=== PATIENT | female | born 1940 | race Two or more races ===

== ENCOUNTER 2024-05-03 14:05 | Inpatient (IN) | payer MEDICARE, SELFPAY ==
--- NOTE | 2024-05-03 14:45 | HP.PCM_ITS ---
[facility] - General General Date of Admission: 05/03/24 Date of Service: 05/03/24 Chief Complaint: Debility due to craniotomy to resect a Left sphenoid wing meningioma. [facility] Constanza EVANS, is a 83 YO F with a PMH of hypertension, diabetes mellitus type 2 (HGBA1C was 5.8% at [facility]), obstructive sleep apnea and a left sphenoid wing meningioma (had a meningioma resection in 2010 and now it is recurrent) who underwent a left frontal craniotomy on 04/26/2024 at [facility] by Dr. Alamo to resect a meningioma. Post operatively she had a seizure and was started on Keppra. She has not had additional seizures in the past few days. She has had some difficulty with speech/word finding and oropharyngeal dysphagia post operatively. She was transferred to the acute inpt rehab unit at [facility] on 05/03/24 for 3 hours of therapy daily to restore function/independence at or near her level prior to the surgery. She had a Armendariz catheter post op and then a purewick catheter when transferred out of NICU at [facility]. She is c/o urinary urgency and frequency. She also has some suprapubic discomfort. Ambulated without and AD prior to the surgery. She saw an eye doctor or swollen left upper lid with impairment of vision and was noted to have proptosis. MRI showed a meningioma. She and her were independent prior to the surgery. They have 4 children who live locally and help out somewhat with stuff around the house. she is accompanied by her and her son Paul today. 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 She refused an MRI to better evaluate and did not want any intervention other than craniotomy. [facility] Medical History (Updated 05/04/24 @ 12:[address] Zoey Feng, DO) Essential tremor GERD (gastroesophageal reflux disease) Benign positional vertigo Subdural hematoma Obstructive sleep apnea Meningioma Hyperlipidemia HTN (hypertension) Diabetes mellitus, type 2 Home Medications ?Medication ?Instructions ?Recorded ?Last Taken ?Type acetaminophen 500 mg tablet 1,000 mg PO Q8 pain 05/03/24 05/03/24 History ascorbic acid (vitamin C) 500 mg 1 g PO DAILY supplement 05/03/24 Unknown History tablet (Vitamin C) bacitracin zinc 500 unit-polymyxin 1 applic topical Q12H wound 05/03/24 05/03/24 History B 10,000 unit/gram topical ointment calcium carbonate 500 mg PO DAILY supplement 05/03/24 Unknown History cholecalciferol (vitamin D3) 25 25 mcg PO DAILY supplement 05/03/24 Unknown History mcg (1,000 unit) capsule fluorometholone 0.1 % eye 1 drp LEFT EYE BID eye drop 05/03/24 Unknown History drops,suspension gabapentin 100 mg capsule 100 mg PO BID nerve pain 05/03/24 05/03/24 History heparin (porcine) 5,000 unit/mL 5,000 unit subcut Q8H clot 05/03/24 05/03/24 History injection solution prevention hydralazine 10 mg tablet 10 mg PO Q4H PRN hypertension 05/03/24 Unknown History levetiracetam 750 mg tablet 1,500 mg PO BID seizure 05/03/24 Unknown History (Keppra) lisinopril 10 mg tablet 10 mg PO DAILY blood pressure 05/03/24 05/03/24 History multivitamin-ferrous 1 tab PO DAILY supplement 05/03/24 Unknown History fumarate-folic acid 18 mg-400 mcg tablet (Centrum Women) nystatin 100,000 unit/gram topical 1 applic topical BID redness 05/03/24 Unknown History powder omega-3 900 mg-dha 360 mg-epa 455 1 cap PO DAILY supplement 05/03/24 Unknown History mg-fish oil 1,000 mg capsule (Fish Oil) ondansetron 4 mg disintegrating 4 mg PO Q6H PRN nausea and vomiting 05/03/24 Unknown History tablet oxycodone 5 mg tablet 5 mg PO Q4H PRN pain 05/03/24 Unknown History pantoprazole 40 mg tablet,delayed 40 mg PO DAILY acid reflux 05/03/24 05/03/24 History release (Protonix) propranolol 20 mg tablet 20 mg PO BID blood pressure 05/03/24 05/03/24 History simvastatin 40 mg tablet 40 mg PO QHS cholesterol 05/03/24 Unknown History Allergy/AdvReac Type Severity Reaction Status Date / Time No Known Allergies Allergy Verified 05/03/24 14:30 Family History Sister Cancer Leukemia. Brother Cancer Esophageal cancer Surgical History History of carpal tunnel surgery History of rotator cuff surgery History of repair of congenital cleft palate History of total knee arthroplasty Status post craniotomy Social History household members: significant other housing: other details: 1 story house with 3 steps to enter house thru the garage number of children: 4 Smoking Status: Never smoker alcohol intake: never substance use type: does not use ROS Constitutional Constitutional: Reports weakness; Denies anorexia, change in weight, chills, difficulty sleeping, fatigue, fever(s), night sweats or poor appetite Eyes Eyes: Reports other Details: She has swelling of the L periorbital area. ; Denies acute decrease in peripheral vision, blind spots, blurry vision, change in vision, diplopia, discharge from eye(s), eye pain, loss of central vision, loss of peripheral vision or loss of vision ENT HEENT: Reports dysphagia; Denies abnormal hearing, headache(s), hearing loss, nasal congestion or sore throat Cardiovascular Cardiovascular: Denies chest pain, dyspnea on exertion, edema, lightheadedness, orthopnea, palpitations, paroxysmal nocturnal dyspnea or syncope Respiratory/Chest Respiratory/Chest: Denies cough, dyspnea, shortness of breath at rest, shortness of breath with exertion or wheezing Gastrointestinal Gastrointestinal: Reports other Details: Had postoperative nausea/vomiting but this is resolved. She is having some suprapubic discomfort. ; Denies constipation, diarrhea, dyspepsia, hematemesis, hematochezia, nausea, odynophagia or vomiting Genitourinary Genitourinary: Reports nocturia, urinary frequency and urinary urgency; Denies dysuria, hematuria, urinary hesitancy or urinary incontinence Musculoskeletal Musculoskeletal: Denies back pain, joint pain, joint swelling or neck pain Integumentary Integumentary: Denies hirsutism, jaundice or rash Neurologic Neurologic: Reports seizures and tremor(s); Denies confusion, disequilibrium, dizziness, focal weakness, headache(s) or paresthesias Psychiatric Psychiatric: Denies anxiety, depression, homicidal ideation or suicidal ideation Endocrine Endocrinology: Denies change in body appearance, polydipsia or polyuria Hematologic/Lymphatic Hematologic/Lymphatic: Reports easy bruising; Denies easy bleeding or lymphadenopathy Allergic/Immunologic Allergic/Immunologic: Denies rhinitis, eczemia or asthma Indicators for Scoring Admitted with or Primary Diagnosis of CVA/Stroke: No Hx of CVA/Stroke: No NIHSS NIHSS 1a. Level of Consciousness: Alert; keenly responsive 1b. LOC Questions: Answers BOTH questions correctly. 1c. LOC Commands: Performs both tasks correctly. 2. Best Gaze: Normal 3. Visual: No visual loss 4. Facial Palsy: Normal symmetrical movements 5a. Left Arm: No drift; arm holds 90 (or 45) degrees for full 10 seconds 5b. Right Arm: No drift; arm holds 90 (or 45) degrees for full 10 seconds 6a. Left Leg: No drift; leg holds 30-degree position for full 5 seconds 6b. Right Leg: No drift; leg holds 30-degree position for full 5 seconds 7. Limb Ataxia: Absent 8. Sensory: Normal; no sensory loss 9. Best Language: No aphasia; normal 10. Dysarthria: Rydy-aw-iixaquxw dysarthria; 11. Extinction and Inattention: No abnormality Total: 1 Stroke Questions Stroke Team Activated: No Physical Exam Const alert and no apparent distress General Appearance: cooperative and well developed HEENT HEENT Narrative: Left frontal craniotomy incision due to recent craniotomy to resect a Left sphenoid wing meningioma. The incision is intact with not purulent DC, no howard- incisional erythema and no dehiscence. No significant howard-incisional swelling however she does have swelling over the central portion of the upper forehead and of the right periorbital area. Mucous membranes are very dry. The tongue protrudes on the midline. Eyes PERRL, EOMs intact bilaterally, conjunctivae normal and no scleral icterus Eyes Narrative: No visual field cuts. Neck supple, no JVD and no carotid bruits Chest Chest: symmetrical chest wall rise Resp normal respiratory effort, normal air movement and no use of accessory muscles Resp Narrative: Clear to auscultation anterior and lateral. Able to speak in complete sentences. Not tachypneic. Back/Spine no CVA tenderness Extremity no clubbing, cyanosis or edema, no calf tenderness and no pedal edema Peripheral Pulses: Yes pulses 2+ throughout Skin no jaundice and no mottling Skin Narrative: Left frontal craniotomy incision which is intact with no howard-incisional erythema, no purulent discharge and no dehiscence. General Skin Exam: no breakdown Rashes: no rashes Neuro moves all extremities and no sensory deficits noted Neuro Narrative: Mild dysarthria. Essential tremor involving primarily her upper extremities and the head. No rigidity and no bradykinesia. No aphasia. Negative for extinction. Psych mental status grossly normal, cooperative, affect normal, denies hallucinations, denies homicidal ideation and denies suicidal ideation Results Lab / Micro Data 05/04/24 05:39 05/04/24 05:39 Assessment & Plan Assessment/Plan (1) Debility: (2) Meningioma: (3) Status post craniotomy: (4) Oropharyngeal dysphagia: (5) Acute blood loss anemia: (6) Dehydration determined by examination: (7) Essential tremor: (8) Diabetes mellitus, type 2: QUALIFIERS: Diabetes mellitus keno terminal operator insulin use: without keno terminal operator use Diabetes mellitus complication status: with hyperglycemia Qualified Code(s): E11.65 - Type 2 diabetes mellitus with hyperglycemia (9) HTN (hypertension): QUALIFIERS: Hypertension type: primary hypertension Qualified Code(s): I10 - Essential (primary) hypertension (10) Hyperlipidemia: QUALIFIERS: Hyperlipidemia type: unspecified Qualified Code(s): E 78.5 - Hyperlipidemia, unspecified (11) Obstructive sleep apnea: PLAN: Plan PLAN PT for gait stability OT for ADL's ST for evaluation Analgesics as needed Bowel protocol Fall precautions Assess for Anxiety/Depression GI prophylaxis -Protonix DVT prophylaxis with heparin 5000 units SQ every 12 hours Follow up with PCP, epilepsy clinic and Dr. Alamo following DC from IP Rehab AM lab including CMP, CBC, Mag and Phos ordered Straight cath for a UA Overnight trending pulse ox since she has been diagnosed with obstructive sleep apnea and worn CPAP in the past but she discontinued this in the distant past. Continue glargine at at bedtime and a sliding insulin scale. She uses an eye drop at home and her son is going to bring it in so we can continue this. Seizure precautions. she is to follow up in the epilepsy clinic at [facility] post DC from rehab Strongly encouraged her to increase her fluid intake. Charges/Coding Visit Charges Inpatient E&M: 48160 Init Hosp L3
[2024-05-03 15:11] VITALS: BP 133/70; PULSE 61; RESP 16; TEMP 36.9; O2SAT 98; BMI 26.8
[2024-05-03 15:17] LABS: Mucous, Urine 0 SEEN /hpf (<or=2+); Squamous Epithelial Cells - UA 0 SEEN /hpf (5-10)
[2024-05-03 15:19] LABS: Color, Urine Straw (Yellow); Glucose, Dipstick Normal (Normal); Ketone-Dipstick Negative (Negative); Leukocyte Esterase-Dipstick 500 /ul (Negative); Nitrite-Dipstick Negative (Negative); Occult Blood-Urine 10 /ul (Negative); Protein-Dipstick 15 mg/dl (Negative); Specific Gravity, Urine 1.005 (1.002-1.030); Urine Bilirubin Dipstick Negative (Negative); Urine Clarity Clear (Clear); Urine Urobilinogen Normal (Normal)
[2024-05-03 15:24] LABS: Bacteria 2+ /hpf (None Seen)
[2024-05-03 15:25] LABS: Red Blood Cells-Urine 0-5 SEEN /hpf (0-5); White Blood Cells 25-50 SEEN /hpf (0-5)
[2024-05-03 16:50] LABS: Bedside Glucose 83 mg/dL (74-106)
[2024-05-03] MEDS: dexAMETHasone 4 MG Tablet PO (16:50)
[2024-05-03 17:36] VITALS: BP 131/71; PULSE 65; RESP 17; TEMP 36.8; O2SAT 98
[2024-05-03 21:26] VITALS: PULSE 78; O2SAT 97
[2024-05-03] MEDS: Cefadroxil 500 MG CAPSULE PO (22:00)
[2024-05-03] MEDS: FLUOROMETHOLONE 5 ML DROPS.SUSP LEFT EYE (22:00)
[2024-05-03] MEDS: Insulin Lispro 100 UNIT/ML INSULN.PEN SC (22:01)
[2024-05-03] MEDS: Insulin Glargine-YFGN 100 UNIT/ML Pen 13 UNIT SC (22:02)
[2024-05-03] MEDS: Atorvastatin Calcium 20 MG Tablet PO (22:03)
[2024-05-03] MEDS: levETIRAcetam 750 MG Tablet 1500 MG PO (22:03)
[2024-05-03] MEDS: BACITRACIN/POLYMYXIN B 15 GM Tube 1 APPLIC TOPICAL (22:04)
[2024-05-03] MEDS: Nystatin Powder 15gm Bottle 1 APPLIC TOPICAL (22:04)
[2024-05-03] MEDS: Acetaminophen 500 MG Tablet 1000 MG PO (22:05)
[2024-05-03] MEDS: Gabapentin 100 MG Capsule PO (22:12)
[2024-05-03] MEDS: Heparin Injection (Vial) 5,000 UNIT/ML VIAL 5000 UNIT SC (22:18)
[2024-05-03 22:40] VITALS: O2SAT 98
[2024-05-03 22:48] LABS: Bedside Glucose 168 mg/dL (74-106)
[2024-05-03 23:38] VITALS: BP 118/65; PULSE 64
[2024-05-03] MEDS: Propranolol 10 MG Tablet 20 MG PO (23:38)
[2024-05-04 05:53] LABS: Absolute Lymphocyte Count 1.57 X10^3/uL (0.83-4.51); Basophil# 0.01 X10^3/uL; Basophil% 0.1 % (0-1); Eosinophil# 0.19 X10^3/uL; Eosinophils% 1.6 % (0-5); Hematocrit 32.3 % (37-47); Hemoglobin 10.8 g/dL (12.0-15.0); Lymphocyte # 1.57 X10^3/ul (0.83-4.51); Lymphocyte % 13.6 % (19-41); Mean Corp Hgb Conc 33.4 g/dL (32-36); Mean Corpuscular Hgb 30.2 pg (27.0-32.0); Mean Corpuscular Volume 90.2 fL (81-99); Mean Platelet Vol. 9.6 fl (6.2-12.0); Monocyte# 0.71 X10^3/uL; Monocyte% 6.2 % (0-10); NRBC Flagged by Analyzer 0 % (0-5); Neutrophil # 8.98 X10^3/uL (2.7-7.7); Neutrophil % 77.8 % (47-70); Platelet Count 276 K/mm3 (150-450); RBC Distribution Width CV 13.7 % (11.6-14.6); RBC Distribution Width SD 44.6 fl (35.1-43.9); Red Blood Count 3.58 M/mm3 (4.2-5.4); White Blood Count 11.5 K/mm3 (4.4-11.0)
[2024-05-04 06:26] LABS: ALB/GLOB Ratio 0.8 RATIO (0.9-2.4); AST(SGOT) 8 U/L (15-37); Alanine Aminotransfer ALT/SGPT 14 U/L (13-56); Albumin, Serum 2.4 g/dL (3.2-5.0); Alkaline Phosphatase 42 U/L (45-117); Anion Gap 4 (5-15); BUN 33 mg/dL (7-18); Calcium,Total 8.8 mg/dL (8.5-10.1); Chloride 105 mmol/L (98-107); Creatinine, Serum 0.92 mg/dL (0.55-1.02); EST Glomerular Filtration Rate 62 mL/min (>60); Est Glom Filt Rate - Afr Amer 75 mL/min (>60); Estimated Creatinine Clearance 47.99 ml/min; Globulin 3.1 g/dL (2.2-4.2); Glucose 105 mg/dL (74-106); Phosphorus 3.1 mg/dL (2.5-4.9); Potassium 4.1 mmol/L (3.5-5.1); Protein, Total 5.5 g/dL (6.4-8.2); Sodium Level 135 mmol/L (136-145)
[2024-05-04 06:31] VITALS: BP 108/58; PULSE 54; RESP 18; TEMP 36.4; O2SAT 98
[2024-05-04 06:37] VITALS: BP 108/58; PULSE 54; RESP 18; TEMP 36.4; O2SAT 98
[2024-05-04] MEDS: Heparin Injection (Vial) 5,000 UNIT/ML VIAL 5000 UNIT SC ×3 (06:46→21:17)
[2024-05-04] MEDS: Acetaminophen 500 MG Tablet 1000 MG PO ×3 (06:46→21:23)
[2024-05-04 07:09] LABS: Bedside Glucose 103 mg/dL (74-106)
[2024-05-04] MEDS: levETIRAcetam 750 MG Tablet 1500 MG PO ×2 (07:54→21:24)
[2024-05-04] MEDS: Ascorbic Acid 500 MG Tablet PO (07:54)
[2024-05-04] MEDS: dexAMETHasone 4 MG Tablet PO ×2 (07:54→17:39)
[2024-05-04] MEDS: Cefadroxil 500 MG CAPSULE PO ×2 (07:54→21:25)
[2024-05-04] MEDS: Calcium (Elemental) 500 MG Tablet PO (07:54)
[2024-05-04] MEDS: Omega-3 Acid Ethyl Esters 1 GM Capsule PO (07:54)
[2024-05-04] MEDS: FLUOROMETHOLONE 5 ML DROPS.SUSP LEFT EYE ×2 (07:55→21:19)
[2024-05-04] MEDS: Nystatin Powder 15gm Bottle 1 APPLIC TOPICAL ×2 (07:56→21:16)
[2024-05-04] MEDS: Senna/Docusate Sodium 1 Tablet 2 TABLET PO ×2 (10:11→21:24)
[2024-05-04] MEDS: Gabapentin 100 MG Capsule PO ×2 (10:11→21:32)
[2024-05-04] MEDS: Pantoprazole Sodium 40 MG Tablet PO (10:11)
[2024-05-04] MEDS: Cholecalciferol (VIT D3) 25 MCG TABLET (1,000 UNITS) PO (10:11)
[2024-05-04] MEDS: Lisinopril 10 MG Tablet PO (10:12)
[2024-05-04] MEDS: Propranolol 10 MG Tablet 20 MG PO ×2 (10:12→21:24)
[2024-05-04] MEDS: BACITRACIN/POLYMYXIN B 15 GM Tube 1 APPLIC TOPICAL ×2 (10:15→21:21)
[2024-05-04 10:19] VITALS: BP 104/68; PULSE 60
[2024-05-04 11:21] LABS: Bedside Glucose 130 mg/dL (74-106)
[2024-05-04 12:45] VITALS: BP 106/52; PULSE 60
[2024-05-04] MEDS: Multivitamins,Ther W-Minerals Tablet 1 TABLET PO (12:57)
--- NOTE | 2024-05-04 12:57 | REHABEVAL_ITS ---
Admission Information Primary Diagnosis:: Debility secondary to craniotomy for resection of meningioma Status Changes from Prescreening?: No changes Identified Actual Problem List:: Skin Intergrity, Pain, ALteration in Cmfrt, Cognitve Impr/Memory Loss, Alteration in Sleep, Mobility Impaired, Self Care Deficit, Diabetes, Hyperglycemia, Fluid Change-Dehydration and Alteration-Leisure Activ. Potential Problem List:: DVT, Bleeding, Infection, UTI, Aspiration, Falls, Skin Integrity and Depression Risk of Complications DVT: DONAL Hose and - (Heparin 5000 units SQ every 8 hours) Bleeding: Monitor Lab Values, Nursing to Teach Precautions for anti-coagulation therapy., Wound, if applicable, to be assessed every shift. and Stroke patients assessed for lethargy or change in status. Infection: Clinical Staff to Monitor for S/S of infection: and S/S of infection include fever, redness, warmth, etc. Urinary Tract Infection: Monitor for frequency, burning, discomfort, or incontinence. and Nursing will obtain urine sample for urinalysis and C&S when ordered. Aspiration: Clinical staff will monitor for coughing, drooling, congestion., Speech will evaluate swallowing and dsyphasia. and Nursing will monitor patient swallowing during meals. Falls: Patient will be evaluated for Fall Precautions and Patient will be placed on Fall Precautions as indicated per protocol. Skin Breakdown: Nursing will assess skin daily using assessment tool. and Nursing will place on Skin Breakdown Precautions as indicated. Pain: Clinical staff will assess patient's pain level per protocol., Medications will be given, if needed, and the pain level reassessed. and Other methods: Massage, distraction, decrease stimulus, etc. used PRN. Plan of Care Patient requires physician specializing in physical medicine and rehab oversight to provide close medical supervision of rehab issues including: Pain Management, Sleep Problems, Bowel and Bladder, Medical and co-morbidity Management, DVT prophylaxis, Rehabilitation Leadership and Coordination of treatment team Patient needs Physical Therapy: For a minimum of 1 hour and At least 5 out of 7 days Patient needs Physical Therapy to improve:: Mobility, Strengthening, Transfers, Stretching, ROM, Endurance, Stairs, Gait and Balance Patient needs Occupational Therapy: For a minimum of 1 hour and At least 5 out of 7 days Patient needs Occupational Therapy to improve ADL's incl.: Eating, Grooming, Bathing, Dressing, Toileting, Toilet transfers, Community Reintegration, Higher functioning activities, Household tasks, Adaptive Equipment, Splinting and Other activities as determined Patient requires speech therapy: For a minimum of 1 hour and At least 5 out of 7 days Patient requires speech therapy for: Swallowing, Cognition, Language Skills and Compensatory Strategies Patient requires 24/ Rehabilitation Nursing for: Pain Issues, Identifying and preventing risk factors, Monitoring and reporting current medical conditions, Assisting with ambulation, transfer, and all ADL's, Teaching patients about disease process and medications, Family teaching, Providing safe environment, Bowel and Bladder Issues, Skin integrity and Medication Management Patient needs Modern Languages Professor/ Case Management for: Discharge Planning, Arranging Home Equipment or Services and Family Interventions Patient needs Dietary and Nutrition Services for: Adequate Nutrition, Nutritional Supplements and Nutritional Education Goals Goals Patient will remain: free from falls Patient will perform eating at: MOD I level of assist. Patient will perform bed mobility at: MOD I level of assist. Patient will complete transfers from bed to chair at: MOD I level of assist. Patient will ambulate: - (250 feet with least restrictive device at mod I) Patient will complete upper body dressing at: MOD I level of assist. Patient will complete lower body dressing at: Standby Assist. Patient will complete toilet transfer at: MOD I level of assist. Patient will complete toileting at: MOD I level of assist. Patient will perform bathing at: - (Upper body bathing independently and lower body bathing at mod I with assistive equipment as needed.) Patient will perform Tub/Shower transfer at: - (Supervision) Patient will complete grooming at: MOD I level of assist. Patient will complete home management skills at: MOD I level of assist. Patient will achieve: - (2 steps with 1 handrail and modified least restrictive device) Patient will have pain level of: of 3 or less Patient's skin will: remain intact Patient will receive: adequate nutrition. Discharge Planning Pt Prognosis for Sig. Practical Improv. w/in Reasonable Time: Good Estimated Length of stay (days): 28 Anticipated D/C Destination: Home Was Preadmission Assessment Accurate?: Yes
--- NOTE | 2024-05-04 12:59 | PCM.PROGNOTE ---
Subjective Subjective Day #2 cefadroxil Afebrile VSS -blood pressure has ranged from 104/68 to 118/65. Heart rate has ranged from 54-64. She denies lightheadedness. Maintaining appropriate oxygen saturation on RA Oral intake - FOOD good FLUIDS fluid intake has picked up today. Since midnight she has taken in 1860 cc. The blood sugar record was reviewed. Blood sugar at at bedtime was 168 and the fasting this morning was 103. Discussed with nursing - no problems that need addressed Reviewed the THERAPY notes Medication list reviewed. All lab drawn this morning was personally reviewed. White blood cell count is 11.5 however she is on dexamethasone twice daily. Hemoglobin is 10.8 with a normal MCV and a mildly elevated RDW. Platelets are within normal limits. The sodium is mildly decreased at 135 and the potassium is 4.1. The BUN is 33 with a creatinine of 0.92 and a BUN/creatinine ratio of 36. LFTs are unremarkable. Straight cath UA yesterday showed 25-50 WBCs per high-power field with 2+ bacteria. 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 The overnight trending pulse ox was reviewed. The pulse ox is 89% or less only 0.03% of the time she was monitored which amounts to 10 seconds. There were no desaturation events. Karena denies cephalgia, vertigo, lightheadedness, chest pain, cough, shortness of breath, sore throat, nausea/vomiting/abdominal pain, calf pain. Still having some dysuria. PVR's elevated at times. Objective Data Objective Data Vital Signs: Vital Signs Temp Pulse Resp BP Pulse Ox O2 Del Method FiO2 97.5 F L 60 18 106/52 L 98 Room Air 21 05/04/24 06:37 05/04/24 12:45 05/04/24 06:37 05/04/24 12:45 05/04/24 06:37 05/04/24 07:25 05/03/24 21:26 Oxygen Delivery Method Room Air Weight: 171 lb 1.259 oz Body Mass Index (BMI) 26.8 Intake & Output: Intake and Output for Last 24 Hours 05/02/24 05/03/24 05/04/24 23:59 23:59 23:59 Intake Total 360 / 660 1860 / 1860 Output Total 300 / 300 300 / 300 Balance 60 / 360 1560 / 1560 Lab / Micro Data 05/04/24 05:39 05/04/24 05:39 Labs: Laboratory Results - last 24 hr 05/03/24 15:10: Urine Color Straw, Urine Clarity Clear, Urine pH 7.0, Ur Specific [place] 1.005, Urine Protein 15 H, Urine Glucose (UA) Normal, Urine Ketones Negative, Urine Occult Blood 10 H, Urine Nitrite Negative, Urine Bilirubin Negative, Urine Urobilinogen Normal, Ur Leukocyte Esterase 500 H, Urine RBC 0-5 SEEN, Urine WBC 25-50 SEEN, Ur Squamous Epith Cells 0 SEEN, Urine Bacteria 2+, Urine Mucus 0 SEEN 05/03/24 16:17: POC Glucose 83 05/03/24 21:55: POC Glucose 168 H 05/04/24 05:39: WBC 11.5 H, RBC 3.58 L, Hgb 10.8 L, Hct 32.3 L, MCV 90.2, MCH 30.2, MCHC 33.4, RDW Std Deviation 44.6 H, RDW Coeff of Tung 13.7, Plt Count 276, MPV 9.6, Immature Gran % (Auto) 0.700, Neut % (Auto) 77.8 H, Lymph % (Auto) 13.6 L, [place] % (Auto) 6.2, Eos % (Auto) 1.6, Baso % (Auto) 0.1, Absolute Neuts (auto) 9.0 H, Absolute Lymphs (auto) 1.57, Nucleated RBC % 0, Sodium 135 L, Potassium 4.1, Chloride 105, Carbon Dioxide 26.0, Anion Gap 4 L, BUN 33 H, Creatinine 0.92, Estim Creat Clear Calc 47.99, Est GFR (MDRD) Af Amer 75, Est GFR (MDRD) Non-Af 62, BUN/Creatinine Ratio 36.0 H, Glucose 105, Calcium 8.8, Phosphorus 3.1, Total Bilirubin 0.40, AST 8 L, ALT 14, Alkaline Phosphatase 42 L, Total Protein 5.5 L, Albumin 2.4 L, Globulin 3.1, Albumin/Globulin Ratio 0.8 L 05/04/24 06:50: POC Glucose 103 05/04/24 11:02: POC Glucose 130 H Micro: Microbiology 05/03/24 15:10 Urine Catheter - Catheter Urine Culture - Preliminary GNR lactose wallpaper inspector and shipper Physical Exam Const alert, oriented x3 and no apparent distress Constitutional Narrative: Pleasant and talkative. She is appropriate. General Appearance: cooperative HEENT Mouth: dry mucous membranes Neck supple Resp normal respiratory effort and clear to auscultation bilaterally Effort and Inspection: Negative for tachypneic, respiratory distress or labored Cardio regular rate, regular rhythm, no murmurs, no rub and no gallops GI normal to inspection, nondistended, normoactive bowel sounds, soft to palpation and non-tender GI Narrative: No guarding with light palpation. Mild suprapubic tenderness with deeper palpation. Extremity no calf tenderness General Extremity: Negative for edema Skin Wound Narrative: Cranial incision is intact with no dehiscence, no hwoard-incisional erythema, no discharge from the incision. Psych affect normal Assessment & Plan Assessment/Plan (1) Debility: (2) Meningioma: (3) Status post craniotomy: (4) Oropharyngeal dysphagia: (5) Acute blood loss anemia: (6) Dehydration determined by examination: (7) Essential tremor: (8) Diabetes mellitus, type 2: QUALIFIERS: Diabetes mellitus terminal system operator insulin use: without terminal system operator use Diabetes mellitus complication status: with hyperglycemia Qualified Code(s): E11.65 - Type 2 diabetes mellitus with hyperglycemia (9) HTN (hypertension): QUALIFIERS: Hypertension type: primary hypertension Qualified Code(s): I10 - Essential (primary) hypertension (10) Hyperlipidemia: QUALIFIERS: Hyperlipidemia type: unspecified Qualified Code(s): E78.5 - Hyperlipidemia, unspecified (11) Obstructive sleep apnea: PLAN: Plan 1. Continue therapy 2. Decrease the at bedtime glargine to 10 units 3. Change the sliding insulin to 3 times daily AC 4. Hold lisinopril if the systolic is less than 110 5. Continue empiric cefadroxil and await the final urine culture results. Charges/Coding Visit Charges Inpatient E&M: 87362 Subs Hosp L2
[2024-05-04 13:10] VITALS: BP 103/52; BP 110/57; BP 119/60; PULSE 57; PULSE 62; PULSE 63
[2024-05-04 13:47] VITALS: BMI 26.5
[2024-05-04 14:01] LABS: Magnesium 2.2 mg/dL (1.6-2.6)
[2024-05-04 16:37] LABS: Bedside Glucose 102 mg/dL (74-106)
[2024-05-04] MEDS: Ensure Plus High Protein 120 ML LIQUID PO (17:39)
[2024-05-04 18:00] VITALS: BP 105/53; PULSE 56; RESP 16; TEMP 36.3; O2SAT 96
[2024-05-04] MEDS: Atorvastatin Calcium 20 MG Tablet PO (21:24)
[2024-05-04] MEDS: Insulin Glargine-YFGN 100 UNIT/ML Pen 10 UNIT SC (21:26)
[2024-05-04 21:45] LABS: Bedside Glucose 190 mg/dL (74-106)
[2024-05-05] MEDS: Heparin Injection (Vial) 5,000 UNIT/ML VIAL 5000 UNIT SC ×3 (05:02→20:40)
[2024-05-05] MEDS: Acetaminophen 500 MG Tablet 1000 MG PO ×3 (05:03→20:44)
[2024-05-05 06:00] VITALS: BP 128/66; PULSE 60; RESP 16; TEMP 36.6; O2SAT 94
[2024-05-05 07:08] LABS: Bedside Glucose 123 mg/dL (74-106)
[2024-05-05] MEDS: Pantoprazole Sodium 40 MG Tablet PO (07:45)
[2024-05-05] MEDS: Senna/Docusate Sodium 1 Tablet 2 TABLET PO ×2 (07:45→20:44)
[2024-05-05] MEDS: Nystatin Powder 15gm Bottle 1 APPLIC TOPICAL ×2 (07:45→20:35)
[2024-05-05] MEDS: dexAMETHasone 4 MG Tablet PO ×2 (07:45→16:57)
[2024-05-05] MEDS: Cholecalciferol (VIT D3) 25 MCG TABLET (1,000 UNITS) PO (07:45)
[2024-05-05] MEDS: Omega-3 Acid Ethyl Esters 1 GM Capsule PO (07:46)
[2024-05-05] MEDS: Propranolol 10 MG Tablet 20 MG PO ×2 (07:46→20:43)
[2024-05-05] MEDS: Ascorbic Acid 500 MG Tablet PO (07:46)
[2024-05-05] MEDS: Ensure Plus High Protein 120 ML LIQUID PO ×3 (07:47→16:57)
[2024-05-05 10:30] VITALS: BP 104/63; PULSE 70
[2024-05-05] MEDS: BACITRACIN/POLYMYXIN B 15 GM Tube 1 APPLIC TOPICAL ×2 (10:33→20:36)
[2024-05-05] MEDS: Calcium (Elemental) 500 MG Tablet PO (10:35)
[2024-05-05] MEDS: levETIRAcetam 750 MG Tablet 1500 MG PO ×2 (10:35→20:43)
[2024-05-05] MEDS: Gabapentin 100 MG Capsule PO ×2 (10:35→20:57)
[2024-05-05] MEDS: Cefadroxil 500 MG CAPSULE PO ×2 (10:36→20:43)
[2024-05-05] MEDS: FLUOROMETHOLONE 5 ML DROPS.SUSP LEFT EYE ×2 (10:37→20:38)
[2024-05-05] MEDS: Magnesium Hydroxide 30 ML UDC PO (11:22)
[2024-05-05] MEDS: Multivitamins,Ther W-Minerals Tablet 1 TABLET PO (11:22)
[2024-05-05 11:41] LABS: Bedside Glucose 188 mg/dL (74-106)
[2024-05-05] MEDS: Insulin Lispro 100 UNIT/ML INSULN.PEN SC ×2 (12:10→16:56)
[2024-05-05 16:30] LABS: Bedside Glucose 159 mg/dL (74-106)
[2024-05-05 18:00] VITALS: BP 129/63; PULSE 65; RESP 18; TEMP 36.4; O2SAT 96
[2024-05-05] MEDS: Atorvastatin Calcium 20 MG Tablet PO (20:44)
[2024-05-05] MEDS: Insulin Glargine-YFGN 100 UNIT/ML Pen 10 UNIT SC (20:58)
[2024-05-05 21:24] LABS: Bedside Glucose 167 mg/dL (74-106)
[2024-05-06] MEDS: Heparin Injection (Vial) 5,000 UNIT/ML VIAL 5000 UNIT SC ×3 (06:03→21:52)
[2024-05-06] MEDS: Acetaminophen 500 MG Tablet 1000 MG PO ×3 (06:04→21:56)
[2024-05-06 06:25] VITALS: BP 144/64; PULSE 52; RESP 17; TEMP 36.6; O2SAT 95
[2024-05-06 06:34] LABS: Bedside Glucose 126 mg/dL (74-106)
[2024-05-06] MEDS: Gabapentin 100 MG Capsule PO ×2 (08:03→22:04)
[2024-05-06] MEDS: Lisinopril 10 MG Tablet PO (08:03)
[2024-05-06] MEDS: levETIRAcetam 750 MG Tablet 1500 MG PO ×2 (08:04→21:56)
[2024-05-06] MEDS: Pantoprazole Sodium 40 MG Tablet PO (08:04)
[2024-05-06] MEDS: Propranolol 10 MG Tablet 20 MG PO ×2 (08:04→21:56)
[2024-05-06] MEDS: dexAMETHasone 4 MG Tablet PO ×2 (08:04→16:35)
[2024-05-06] MEDS: Omega-3 Acid Ethyl Esters 1 GM Capsule PO (08:04)
[2024-05-06] MEDS: Ascorbic Acid 500 MG Tablet PO (08:04)
[2024-05-06] MEDS: Cholecalciferol (VIT D3) 25 MCG TABLET (1,000 UNITS) PO (08:04)
[2024-05-06] MEDS: Cefadroxil 500 MG CAPSULE PO ×2 (08:04→21:56)
[2024-05-06] MEDS: Calcium (Elemental) 500 MG Tablet PO (08:05)
[2024-05-06] MEDS: FLUOROMETHOLONE 5 ML DROPS.SUSP LEFT EYE ×2 (08:05→22:00)
[2024-05-06] MEDS: Ensure Plus High Protein 120 ML LIQUID PO ×3 (08:13→16:35)
[2024-05-06] MEDS: Nystatin Powder 15gm Bottle 1 APPLIC TOPICAL ×2 (08:13→21:55)
[2024-05-06] MEDS: BACITRACIN/POLYMYXIN B 15 GM Tube 1 APPLIC TOPICAL ×2 (08:15→21:54)
[2024-05-06 08:50] VITALS: O2SAT 98
--- NOTE | 2024-05-06 09:10 | PN_ITS ---
Subjective Subjective Day #4/ cefadroxil Karena was seen on team rounds today. Afebrile VSS -blood pressure over the weekend has ranged from 104/63 to 129/63. This a.m. her blood pressure was 144/64 which is an outlier. Heart rate is ranged from 52-70. Maintaining appropriate oxygen saturation on RA Oral intake - FOOD good FLUIDS good The blood sugar record was reviewed. All blood sugars since admission have been 190 or less. No hypoglycemia. Fasting today is 126 and the at bedtime blood sugar was 167. She remains on a Decadron taper. Discussed with nursing -she had 1 postvoid residual yesterday a.m. 39. Later in the day the postvoid residual was 25 and this morning the postvoid residual is 172. Reviewed the THERAPY notes Medication list reviewed. Urine culture showed a pansensitive E. coli. Will continue the Cefadroxil for a total of 7 days in light of the Decadron/immunosuppression. Karena denies lightheadedness, vertigo, CP, SOB at rest, SOB with exertion, cough, nausea, vomiting, abd pain, diarrhea, constipation, dysuria, calf pain and ankle swelling. Objective Data Objective Data Vital Signs: Vital Signs Temp Pulse Resp BP Pulse Ox O2 Del Method FiO2 97.8 F 52 L 17 144/64 H 98 Room Air 21 05/06/24 06:25 05/06/24 06:25 05/06/24 06:25 05/06/24 06:25 05/06/24 08:50 05/06/24 08:50 05/03/24 21:26 Oxygen Delivery Method Room Air Weight: 169 lb 8.568 oz Body Mass Index (BMI) 26.5 Intake & Output: Intake and Output for Last 24 Hours 05/04/24 05/05/24 05/06/24 23:59 23:59 23:59 Intake Total 2640 / 2640 1560 / 1560 240 / 240 Output Total 1250 / 1250 2049 / 2049 Balance 1390 / 1390 -490 / -490 240 / 240 Lab / Micro Data 05/04/24 05:39 05/04/24 05:39 Labs: Laboratory Results - last 24 hr 05/05/24 11:13: POC Glucose 188 H 05/05/24 16:11: POC Glucose 159 H 05/05/24 21:04: POC Glucose 167 H 05/06/24 06:14: POC Glucose 126 H Micro: Microbiology 05/03/24 15:10 Urine Catheter - Catheter Urine Culture - Final Escherichia coli Physical Exam Const alert, oriented x3 and no apparent distress Constitutional Narrative: Pleasant and talkative. She is appropriate. Sitting in the recliner at the bedside. General Appearance: cooperative HEENT moist oral mucous membranes HEENT Narrative: No evidence of thrush. Eyes PERRL, EOMs intact bilaterally, conjunctivae normal and no scleral icterus Eyes Narrative: No visual field cuts. Neck supple Resp normal respiratory effort and clear to auscultation bilaterally Resp Narrative: Clear to auscultation anterior and lateral. Able to speak in complete sentences. Not tachypneic. Effort and Inspection: Negative for tachypneic, respiratory distress or labored Cardio regular rate, regular rhythm, no murmurs, no rub and no gallops Cardio Narrative: No ectopy GI normal to inspection, nondistended, normoactive bowel sounds, soft to palpation and non-tender GI Narrative: No guarding with light palpation, even in the suprapubic area today. Back/Spine no CVA tenderness Extremity no calf tenderness General Extremity: Negative for edema Skin no mottling General Skin Exam: no breakdown Rashes: no rashes Wound Narrative: Cranial incision is intact with no dehiscence, no howard-incisional erythema, no discharge from the incision. Less howard-orbital edema today and the Left eye is open more. No visual field cuts. Psych affect normal Assessment & Plan Assessment/Plan (1) Debility: (2) Meningioma: PLAN: recurrent (3) Status post craniotomy: (4) Oropharyngeal dysphagia: (5) Acute blood loss anemia: (6) Diabetes mellitus, type 2: QUALIFIERS: Diabetes mellitus snf insulin use: without licensed clinical social worker use Diabetes mellitus complication status: with hyperglycemia Qualified Code(s): E11.65 - Type 2 diabetes mellitus with hyperglycemia PLAN: Plan 1. Continue therapy 2. Tomorrow the dexamethasone will get down to 2 mg twice daily so will likely need to decrease the glargine at at bedtime tomorrow. 3. Continue cefadroxil for a total of 7 days for catheter related UTI in a patient on immunosuppressive agents. She is currently asymptomatic. 4. Recheck hemoglobin in a few days. Charges/Coding Visit Charges Inpatient E&M: 41727 Subs Hosp L1
[2024-05-06 12:08] LABS: Bedside Glucose 112 mg/dL (74-106)
[2024-05-06] MEDS: Multivitamins,Ther W-Minerals Tablet 1 TABLET PO (12:10)
[2024-05-06] MEDS: Insulin Lispro 100 UNIT/ML INSULN.PEN SC (16:43)
[2024-05-06 17:24] LABS: Bedside Glucose 151 mg/dL (74-106)
[2024-05-06 18:00] VITALS: BP 132/59; PULSE 61; RESP 17; TEMP 36.6; O2SAT 99
[2024-05-06] MEDS: Insulin Glargine-YFGN 100 UNIT/ML Pen 8 UNIT SC (21:51)
[2024-05-06] MEDS: Atorvastatin Calcium 20 MG Tablet PO (21:56)
[2024-05-06] MEDS: Senna/Docusate Sodium 1 Tablet 2 TABLET PO (21:57)
[2024-05-06 22:07] LABS: Bedside Glucose 175 mg/dL (74-106)
[2024-05-07 06:00] VITALS: BP 115/61; PULSE 74; RESP 17; TEMP 36.7; O2SAT 97
[2024-05-07] MEDS: Acetaminophen 500 MG Tablet 1000 MG PO ×3 (06:20→22:22)
[2024-05-07] MEDS: Heparin Injection (Vial) 5,000 UNIT/ML VIAL 5000 UNIT SC ×3 (06:21→22:18)
[2024-05-07 06:34] LABS: Bedside Glucose 130 mg/dL (74-106)
[2024-05-07 07:10] VITALS: O2SAT 98
[2024-05-07] MEDS: Pantoprazole Sodium 40 MG Tablet PO (07:44)
[2024-05-07] MEDS: Cefadroxil 500 MG CAPSULE PO ×2 (07:44→22:24)
[2024-05-07] MEDS: Propranolol 10 MG Tablet 20 MG PO ×2 (07:44→22:24)
[2024-05-07] MEDS: Omega-3 Acid Ethyl Esters 1 GM Capsule PO (07:44)
[2024-05-07] MEDS: levETIRAcetam 750 MG Tablet 1500 MG PO ×2 (07:44→22:23)
[2024-05-07] MEDS: Multivitamins,Ther W-Minerals Tablet 1 TABLET PO (07:44)
[2024-05-07] MEDS: Lisinopril 10 MG Tablet PO (07:44)
[2024-05-07] MEDS: Calcium (Elemental) 500 MG Tablet PO (07:44)
[2024-05-07] MEDS: Ascorbic Acid 500 MG Tablet PO (07:44)
[2024-05-07] MEDS: Cholecalciferol (VIT D3) 25 MCG TABLET (1,000 UNITS) PO (07:44)
[2024-05-07] MEDS: Ensure Plus High Protein 120 ML LIQUID PO ×3 (07:45→16:10)
[2024-05-07] MEDS: FLUOROMETHOLONE 5 ML DROPS.SUSP LEFT EYE ×2 (07:45→22:21)
[2024-05-07] MEDS: BACITRACIN/POLYMYXIN B 15 GM Tube 1 APPLIC TOPICAL ×2 (07:49→22:16)
[2024-05-07] MEDS: Gabapentin 100 MG Capsule PO ×2 (07:49→22:26)
[2024-05-07] MEDS: Nystatin Powder 15gm Bottle 1 APPLIC TOPICAL (07:50)
--- NOTE | 2024-05-07 10:11 | PN_ITS ---
Subjective Subjective Day #5 of 7 for treatment of catheter related acute cystitis present at admission to rehab. Afebrile VSS - Maintaining appropriate oxygen saturation on RA Oral intake - FOOD good FLUIDS good The blood sugar record was reviewed and all blood sugars are less than 180. The at bedtime blood sugar was 175 and she received a decreased dose of 8 units of glargine last night. The fasting this morning was 130. Decadron will be tapered today to 2 mg p.o. twice daily. Discussed with nursing - no problems that need addressed Reviewed the THERAPY notes Medication list reviewed. No cough, shortness of breath, chest pain, nausea/vomiting, dysuria, constipation or calf tenderness. No vertigo and no cephalgia. Has not taken anything other than Tylenol for pain since admission to rehab. Objective Data Objective Data Vital Signs: Vital Signs Temp Pulse Resp BP Pulse Ox O2 Del Method FiO2 98.0 F 74 17 115/61 98 Room Air 21 05/07/24 06:00 05/07/24 06:00 05/07/24 06:00 05/07/24 06:00 05/07/24 07:10 05/07/24 07:10 05/03/24 21:26 Oxygen Delivery Method Room Air Weight: 169 lb 8.568 oz Body Mass Index (BMI) 26.5 Intake & Output: Intake and Output for Last 24 Hours 05/05/24 05/06/24 05/07/24 23:59 23:59 23:59 Intake Total 1560 / 1560 1320 / 1320 360 / 360 Output Total 2049 / 2049 1000 / 1000 800 / 800 Balance -490 / -490 320 / 320 -440 / -440 Lab / Micro Data 05/04/24 05:39 05/04/24 05:39 Labs: Laboratory Results - last 24 hr 05/06/24 11:51: POC Glucose 112 H 05/06/24 16:43: POC Glucose 151 H 05/06/24 21:49: POC Glucose 175 H 05/07/24 06:17: POC Glucose 130 H Micro: Microbiology 05/03/24 15:10 Urine Catheter - Catheter Urine Culture - Final Escherichia coli Physical Exam Const alert, oriented x3 and no apparent distress HEENT moist oral mucous membranes HEENT Narrative: No evidence of thrush. Resp normal respiratory effort and clear to auscultation bilaterally Cardio regular rate, regular rhythm, no murmurs and no gallops Cardio Narrative: No ectopy GI normal to inspection, nondistended, normoactive bowel sounds, soft to palpation and non-tender Extremity no calf tenderness General Extremity: Negative for edema Skin General Skin Exam: no breakdown Rashes: no rashes Wound Narrative: Cranial incision is intact with no dehiscence, no howard-incisional erythema, no discharge from the incision. Psych affect normal Appearance: appropriate Attitude: No agitated Activity / Motor Behavior: Negative for restless Mood & Affect: Negative for depressed or anxious Assessment & Plan Assessment/Plan (1) Debility: (2) Meningioma: PLAN: recurrent (3) Status post craniotomy: (4) Oropharyngeal dysphagia: (5) Acute blood loss anemia: (6) Diabetes mellitus, type 2: QUALIFIERS: Diabetes mellitus superintendent terminal insulin use: without mcfp use Diabetes mellitus complication status: with hyperglycemia Qualified Code(s): E11.65 - Type 2 diabetes mellitus with hyperglycemia PLAN: Plan 1. Continue therapy 2. Continue to monitor blood sugars before meals and at bedtime. Continue glargine 8 mg nightly and sliding insulin scale with meals. Charges/Coding Visit Charges Inpatient E&M: 49559 Subs Hosp L1
[2024-05-07 12:30] LABS: Bedside Glucose 116 mg/dL (74-106)
[2024-05-07 17:09] LABS: Bedside Glucose 138 mg/dL (74-106)
[2024-05-07 18:00] VITALS: BP 112/61; PULSE 48; RESP 16; TEMP 36.7; O2SAT 96
[2024-05-07] MEDS: Insulin Glargine-YFGN 100 UNIT/ML Pen 8 UNIT SC (22:17)
[2024-05-07] MEDS: Senna/Docusate Sodium 1 Tablet 2 TABLET PO (22:23)
[2024-05-07] MEDS: Atorvastatin Calcium 20 MG Tablet PO (22:25)
[2024-05-07 22:30] LABS: Bedside Glucose 143 mg/dL (74-106)
[2024-05-08 06:00] VITALS: BP 121/54; PULSE 47; RESP 14; TEMP 36.9; O2SAT 95; BMI 26.9
[2024-05-08] MEDS: Acetaminophen 500 MG Tablet 1000 MG PO ×3 (06:18→21:36)
[2024-05-08] MEDS: Heparin Injection (Vial) 5,000 UNIT/ML VIAL 5000 UNIT SC ×3 (06:18→21:36)
[2024-05-08 06:32] LABS: Bedside Glucose 92 mg/dL (74-106)
[2024-05-08] MEDS: Senna/Docusate Sodium 1 Tablet 2 TABLET PO ×2 (08:20→21:37)
[2024-05-08] MEDS: Multivitamins,Ther W-Minerals Tablet 1 TABLET PO (08:21)
[2024-05-08] MEDS: levETIRAcetam 750 MG Tablet 1500 MG PO ×2 (08:21→21:37)
[2024-05-08] MEDS: Ascorbic Acid 500 MG Tablet PO (08:21)
[2024-05-08] MEDS: Cholecalciferol (VIT D3) 25 MCG TABLET (1,000 UNITS) PO (08:21)
[2024-05-08] MEDS: Pantoprazole Sodium 40 MG Tablet PO (08:21)
[2024-05-08] MEDS: FLUOROMETHOLONE 5 ML DROPS.SUSP LEFT EYE ×2 (08:21→21:50)
[2024-05-08] MEDS: Propranolol 10 MG Tablet 20 MG PO ×2 (08:21→21:36)
[2024-05-08] MEDS: Calcium (Elemental) 500 MG Tablet PO (08:22)
[2024-05-08] MEDS: Cefadroxil 500 MG CAPSULE PO ×2 (08:22→21:51)
[2024-05-08] MEDS: Omega-3 Acid Ethyl Esters 1 GM Capsule PO (08:22)
[2024-05-08] MEDS: Lisinopril 10 MG Tablet PO (08:22)
[2024-05-08] MEDS: Gabapentin 100 MG Capsule PO ×2 (08:25→21:51)
[2024-05-08] MEDS: Ensure Plus High Protein 120 ML LIQUID PO ×3 (08:25→16:52)
[2024-05-08] MEDS: BACITRACIN/POLYMYXIN B 15 GM Tube 1 APPLIC TOPICAL ×2 (08:34→21:37)
[2024-05-08 11:38] LABS: Bedside Glucose 106 mg/dL (74-106)
--- NOTE | 2024-05-08 15:45 | CHAPLAIN ---
Type of Pastoral Visit _x__ Initial Visit ___ Follow-up Visit ___ On-call Visit ___ General Patient Visit ___ Spiritual Assessment ___ Family Conference ___ Bereavement ___ Rapid Response ___ Code Blue ___ Other (describe below) Pastoral Care Referral From _x__ Patient ___ Family ___ Nurse ___ Physician ___ Head Start Teacher ___ Interlibrary Loan Specialist ___ Other (describe below) Sacrament/Intervention _x__ Active listening ___ Anointing ___ Temple ___ Bereavement ___ Communion _x__ Maggie exploration ___ _x__ Life review _x__ Prayer ___ Reconciliation ___ Sacrament of Sick _x__ Supportive presence ___ Wedding ___ Other (describe below) Pastoral Comments patient is pleasant and very welcoming; she is an easy conversationalist and talks about her life and family; pt explains some of her health journey and why she is currently in rehab; pt is glad to be close to home and close to family; pt's is home alone but she states that the children are taking good care of him while she is in rehab; pt has been a spiritism member all of her life and she states that this is important to her and that she sees the work of God in her life; pt expresses the blessings of family and friends in her life; pt does not indicate anxieties or concerns but rather speaks of the hope of having her family together for Thanksgiving; pt welcomes a prayer and future visits
[2024-05-08] MEDS: Insulin Lispro 100 UNIT/ML INSULN.PEN SC (16:51)
[2024-05-08 16:53] LABS: Bedside Glucose 175 mg/dL (74-106)
[2024-05-08 18:00] VITALS: BP 112/62; PULSE 56; RESP 18; TEMP 36.6; O2SAT 99
[2024-05-08] MEDS: Atorvastatin Calcium 20 MG Tablet PO (21:38)
[2024-05-08] MEDS: Insulin Glargine-YFGN 100 UNIT/ML Pen 8 UNIT SC (21:38)
[2024-05-08 22:00] VITALS: RESP 16; O2SAT 96
[2024-05-08 22:15] LABS: Bedside Glucose 156 mg/dL (74-106)
[2024-05-09 06:00] VITALS: BP 113/48; PULSE 57; RESP 17; TEMP 36.6; O2SAT 95; O2SAT 99
[2024-05-09] MEDS: Heparin Injection (Vial) 5,000 UNIT/ML VIAL 5000 UNIT SC ×3 (06:47→21:17)
[2024-05-09] MEDS: Acetaminophen 500 MG Tablet 1000 MG PO ×3 (06:48→21:18)
[2024-05-09 07:28] LABS: Bedside Glucose 111 mg/dL (74-106)
[2024-05-09] MEDS: Propranolol 10 MG Tablet 20 MG PO ×2 (08:38→21:17)
[2024-05-09] MEDS: FLUOROMETHOLONE 5 ML DROPS.SUSP LEFT EYE ×2 (08:38→21:17)
[2024-05-09] MEDS: Senna/Docusate Sodium 1 Tablet 2 TABLET PO ×2 (08:38→21:18)
[2024-05-09] MEDS: levETIRAcetam 750 MG Tablet 1500 MG PO ×2 (08:39→21:18)
[2024-05-09] MEDS: Ascorbic Acid 500 MG Tablet PO (08:39)
[2024-05-09] MEDS: Lisinopril 10 MG Tablet PO (08:39)
[2024-05-09] MEDS: Cholecalciferol (VIT D3) 25 MCG TABLET (1,000 UNITS) PO (08:39)
[2024-05-09] MEDS: Cefadroxil 500 MG CAPSULE PO ×2 (08:39→21:17)
[2024-05-09] MEDS: Omega-3 Acid Ethyl Esters 1 GM Capsule PO (08:39)
[2024-05-09] MEDS: Gabapentin 100 MG Capsule PO ×2 (08:40→21:17)
[2024-05-09] MEDS: Pantoprazole Sodium 40 MG Tablet PO (08:40)
[2024-05-09] MEDS: Calcium (Elemental) 500 MG Tablet PO (08:40)
[2024-05-09] MEDS: Ensure Plus High Protein 120 ML LIQUID PO ×3 (08:41→17:06)
--- NOTE | 2024-05-09 08:43 | PCM.PROGNOTE ---
Subjective Subjective Karena was seen on team rounds today. Family was present in the room and additional family participated by phone. Afebrile VSS -heart rate yesterday ranged from 47-57. Blood pressure is well-controlled. Maintaining appropriate oxygen saturation on RA-95 to 99%. No tachypnea. Oral intake - FOOD very good FLUIDS good The blood sugar record was reviewed. Blood sugars are well-controlled with no hypoglycemia. Fasting blood sugar today is 111 and it was 156 at at bedtime. Discussed with nursing - no problems that need addressed Reviewed the THERAPY notes Medication list reviewed. Currently on dexamethasone 2 mg twice daily and will go down to once daily on 05/13/2024. Karena denies pain. She also denies lightheadedness, cephalgia, palpitations, chest pain, shortness of breath, cough, nausea/vomiting/abdominal pain, dysuria and calf pain. Her only real complaint is constipation and she tells me that she has this chronically. Her last bowel movement was on 05/06/2024. She has been taking senna S2 tablets twice daily. Objective Data Objective Data Vital Signs: Vital Signs Temp Pulse Resp BP Pulse Ox O2 Del Method FiO2 97.8 F 57 L 17 113/48 L 95 Room Air 21 05/09/24 06:00 05/09/24 06:00 05/09/24 06:00 05/09/24 06:00 05/09/24 06:00 05/09/24 06:00 05/03/24 21:26 Oxygen Delivery Method Room Air Weight: 171 lb 8.314 oz Body Mass Index (BMI) 26.9 Intake & Output: Intake and Output for Last 24 Hours 05/07/24 05/08/24 05/09/24 23:59 23:59 23:59 Intake Total 1750 / 2350 2670 / 2670 1280 / 1280 Output Total 1700 / 2150 1650 / 1650 500 / 500 Balance 50 / 200 1020 / 1020 780 / 780 Lab / Micro Data 05/04/24 05:39 05/04/24 05:39 Labs: Laboratory Results - last 24 hr 05/08/24 11:20: POC Glucose 106 05/08/24 16:28: POC Glucose 175 H 05/08/24 21:34: POC Glucose 156 H 05/09/24 06:59: POC Glucose 111 H Micro: Microbiology 05/03/24 15:10 Urine Catheter - Catheter Urine Culture - Final Escherichia coli Physical Exam Const alert, oriented x3 and no apparent distress General Appearance: cooperative HEENT moist oral mucous membranes HEENT Narrative: No thrush and she denies mouth pain and also denies vaginal DC and itching. Resp normal respiratory effort, normal air movement and clear to auscultation bilaterally Effort and Inspection: Negative for tachypneic Cardio regular rate, regular rhythm and no gallops GI normal to inspection, nondistended, normoactive bowel sounds, soft to palpation and non-tender Extremity no calf tenderness General Extremity: Negative for edema Skin Wound Narrative: The craniotomy incision is intact with no dehiscence. There is no howard-incisional erythema and no discharge from the incision. There is swelling in the left forehead and left periorbital area continues to improve. Neuro Neuro Narrative: Having essential tremors of the UE's and the head but, it is not interfering with therapy and she does not seem to be bothered by it. Psych thought process normal, cooperative and affect normal Appearance: appropriate Assessment & Plan Assessment/Plan (1) Debility: (2) Meningioma: (3) Status post craniotomy: (4) Oropharyngeal dysphagia: (5) Acute blood loss anemia: (6) Diabetes mellitus, type 2: QUALIFIERS: Diabetes mellitus complication status: with hyperglycemia Diabetes mellitus assistant terminal manager insulin use: without long-term use Qualified Code(s): E11.65 - Type 2 diabetes mellitus with hyperglycemia (7) Bradycardia: (8) Essential tremor: (9) Constipation: QUALIFIERS: Constipation type: chronic idiopathic constipation Qualified Code(s): K59.04 - Chronic idiopathic constipation PLAN: Plan 1. Continue therapy 2. Decrease the at bedtime glargine to 60 units at bedtime. Continue sliding scale insulin 3 times daily AC but, decrease scale to low dosing. 3. Decrease the Propanolol to 10 mg BID due to bradycardia in the 40's. This may increase the essential tremor........the tremor is likely increased by the Dexamethasone she is currently receiving. If the tremor gets worse consider adding Primidone 25 mg at HS or waiting to see if tapering the Dexamethasone off reduces tremor. 4. Add Miralax to the current drug regimen. 5. She is having cognitive dysfunction. Was doing all the finances and driving prior to the recent surgery. ST recommended to the family that they take over the finances for now and that she not drive. Will refer to the Drivers rehab program at [facility] following DC from rehab. She should not drive until she passes the drivers rehab program. 6. Check a TSH and HH in the a.m. Charges/Coding Visit Charges Inpatient E&M: 74696 Subs Hosp L2
[2024-05-09] MEDS: BACITRACIN/POLYMYXIN B 15 GM Tube 1 APPLIC TOPICAL ×2 (08:49→21:19)
[2024-05-09 11:40] LABS: Bedside Glucose 116 mg/dL (74-106)
[2024-05-09] MEDS: Polyethylene Glycol 3350 17 GM PACKET PO (12:07)
[2024-05-09] MEDS: Multivitamins,Ther W-Minerals Tablet 1 TABLET PO (12:10)
--- NOTE | 2024-05-09 14:42 | CASEMGMT ---
Social Work Team meeting held today with pt and her son Peterson present and daughter on speaker phone. PT/OT/ST/SN discussed pt's participation with therapy and pt is making good progress. SW educated pt and family to [employer] benefit and that next review date is 05/10 and continued stay is not guaranteed. Team feels pt would benefit from continued stay in at this time as pt is progressing well. Pt lives at home with her spouse who is not able to provide needed assistance. Pt children can assist however they cannot provide 24 hour care. Pt will continue with treatment plan at this time with plans to reteam next week. MT Ignacio
[2024-05-09] MEDS: Insulin Lispro 100 UNIT/ML INSULN.PEN SC (17:06)
[2024-05-09 17:07] LABS: Bedside Glucose 154 mg/dL (74-106)
[2024-05-09 18:00] VITALS: BP 97/50; PULSE 57; RESP 16; TEMP 36.3; O2SAT 98
[2024-05-09 20:45] VITALS: PULSE 57; RESP 16; O2SAT 98
[2024-05-09] MEDS: Atorvastatin Calcium 20 MG Tablet PO (21:26)
[2024-05-09] MEDS: Insulin Glargine-YFGN 100 UNIT/ML Pen 6 UNIT SC (21:30)
[2024-05-09 22:55] LABS: Bedside Glucose 138 mg/dL (74-106)
[2024-05-10] MEDS: Heparin Injection (Vial) 5,000 UNIT/ML VIAL 5000 UNIT SC ×3 (06:11→21:27)
[2024-05-10] MEDS: Acetaminophen 500 MG Tablet 1000 MG PO ×3 (06:11→21:27)
[2024-05-10 06:22] VITALS: BP 116/54; PULSE 50; RESP 16; TEMP 36.4; O2SAT 100
[2024-05-10 06:22] LABS: Hematocrit 31.9 % (37-47); Hemoglobin 10.3 g/dL (12.0-15.0)
[2024-05-10 07:11] LABS: Bedside Glucose 103 mg/dL (74-106)
[2024-05-10] MEDS: Calcium (Elemental) 500 MG Tablet PO (07:55)
[2024-05-10] MEDS: Ensure Plus High Protein 120 ML LIQUID PO ×3 (07:55→17:08)
[2024-05-10] MEDS: Ascorbic Acid 500 MG Tablet PO (07:55)
[2024-05-10 08:00] VITALS: BP 102/58
[2024-05-10] MEDS: FLUOROMETHOLONE 5 ML DROPS.SUSP LEFT EYE ×2 (09:30→21:28)
[2024-05-10] MEDS: Propranolol 10 MG Tablet 20 MG PO ×2 (09:30→21:26)
[2024-05-10] MEDS: Cefadroxil 500 MG CAPSULE PO ×2 (09:30→21:30)
[2024-05-10] MEDS: Pantoprazole Sodium 40 MG Tablet PO (09:30)
[2024-05-10] MEDS: Omega-3 Acid Ethyl Esters 1 GM Capsule PO (09:30)
[2024-05-10] MEDS: Gabapentin 100 MG Capsule PO ×2 (09:30→21:27)
[2024-05-10] MEDS: Cholecalciferol (VIT D3) 25 MCG TABLET (1,000 UNITS) PO (09:30)
[2024-05-10] MEDS: levETIRAcetam 750 MG Tablet 1500 MG PO ×2 (09:30→21:26)
[2024-05-10] MEDS: BACITRACIN/POLYMYXIN B 15 GM Tube 1 APPLIC TOPICAL ×2 (09:30→21:27)
[2024-05-10] MEDS: Senna/Docusate Sodium 1 Tablet 2 TABLET PO ×2 (09:37→21:26)
[2024-05-10] MEDS: Polyethylene Glycol 3350 17 GM PACKET PO (09:37)
[2024-05-10 11:23] LABS: Bedside Glucose 113 mg/dL (74-106)
[2024-05-10] MEDS: Multivitamins,Ther W-Minerals Tablet 1 TABLET PO (12:23)
[2024-05-10 17:07] LABS: Bedside Glucose 184 mg/dL (74-106)
[2024-05-10] MEDS: Insulin Lispro 100 UNIT/ML INSULN.PEN SC (17:09)
[2024-05-10 17:57] VITALS: BP 120/65; PULSE 73; RESP 16; TEMP 36.6; O2SAT 98
[2024-05-10] MEDS: Insulin Glargine-YFGN 100 UNIT/ML Pen 6 UNIT SC (21:28)
[2024-05-10] MEDS: Atorvastatin Calcium 20 MG Tablet PO (21:30)
[2024-05-10 22:32] LABS: Bedside Glucose 182 mg/dL (74-106)
[2024-05-11 05:43] VITALS: BP 110/53; PULSE 58; RESP 17; TEMP 36.5; O2SAT 97
[2024-05-11] MEDS: Acetaminophen 500 MG Tablet 1000 MG PO ×3 (07:00→20:39)
[2024-05-11] MEDS: Heparin Injection (Vial) 5,000 UNIT/ML VIAL 5000 UNIT SC ×3 (07:01→20:39)
[2024-05-11 07:31] LABS: Bedside Glucose 94 mg/dL (74-106)
[2024-05-11] MEDS: Cholecalciferol (VIT D3) 25 MCG TABLET (1,000 UNITS) PO (08:36)
[2024-05-11] MEDS: Propranolol 10 MG Tablet 20 MG PO ×2 (08:36→20:39)
[2024-05-11] MEDS: Ensure Plus High Protein 120 ML LIQUID PO ×3 (08:36→16:58)
[2024-05-11] MEDS: Ascorbic Acid 500 MG Tablet PO (08:36)
[2024-05-11] MEDS: Pantoprazole Sodium 40 MG Tablet PO (08:36)
[2024-05-11] MEDS: Lisinopril 10 MG Tablet PO (08:37)
[2024-05-11] MEDS: Omega-3 Acid Ethyl Esters 1 GM Capsule PO (08:37)
[2024-05-11] MEDS: Calcium (Elemental) 500 MG Tablet PO (08:37)
[2024-05-11] MEDS: levETIRAcetam 750 MG Tablet 1500 MG PO ×2 (08:37→20:39)
[2024-05-11] MEDS: Senna/Docusate Sodium 1 Tablet 2 TABLET PO ×2 (08:37→20:39)
[2024-05-11] MEDS: BACITRACIN/POLYMYXIN B 15 GM Tube 1 APPLIC TOPICAL ×2 (08:38→20:40)
[2024-05-11] MEDS: Polyethylene Glycol 3350 17 GM PACKET PO (08:38)
[2024-05-11] MEDS: Gabapentin 100 MG Capsule PO ×2 (08:41→20:38)
[2024-05-11] MEDS: FLUOROMETHOLONE 5 ML DROPS.SUSP LEFT EYE ×2 (10:08→20:39)
[2024-05-11 11:38] LABS: Bedside Glucose 107 mg/dL (74-106)
[2024-05-11] MEDS: Multivitamins,Ther W-Minerals Tablet 1 TABLET PO (11:42)
[2024-05-11 16:35] LABS: Bedside Glucose 136 mg/dL (74-106)
[2024-05-11 17:57] VITALS: BP 107/53; PULSE 61; RESP 16; TEMP 36.6; O2SAT 98
[2024-05-11 20:30] VITALS: PULSE 60
[2024-05-11] MEDS: Atorvastatin Calcium 20 MG Tablet PO (20:38)
[2024-05-11] MEDS: Insulin Glargine-YFGN 100 UNIT/ML Pen 6 UNIT SC (20:52)
[2024-05-11 21:25] LABS: Bedside Glucose 145 mg/dL (74-106)
[2024-05-12] MEDS: Heparin Injection (Vial) 5,000 UNIT/ML VIAL 5000 UNIT SC ×3 (05:20→21:36)
[2024-05-12] MEDS: Acetaminophen 500 MG Tablet 1000 MG PO ×3 (05:20→21:38)
[2024-05-12 05:25] VITALS: BP 113/63; PULSE 55; RESP 18; TEMP 36.6; O2SAT 94
[2024-05-12 07:02] LABS: Bedside Glucose 125 mg/dL (74-106)
[2024-05-12] MEDS: levETIRAcetam 750 MG Tablet 1500 MG PO ×2 (07:20→21:40)
[2024-05-12] MEDS: Calcium (Elemental) 500 MG Tablet PO (07:20)
[2024-05-12] MEDS: Lisinopril 10 MG Tablet PO (07:20)
[2024-05-12] MEDS: Omega-3 Acid Ethyl Esters 1 GM Capsule PO (07:20)
[2024-05-12] MEDS: Ascorbic Acid 500 MG Tablet PO (07:21)
[2024-05-12] MEDS: Propranolol 10 MG Tablet 20 MG PO ×2 (07:21→21:39)
[2024-05-12] MEDS: Cholecalciferol (VIT D3) 25 MCG TABLET (1,000 UNITS) PO (07:21)
[2024-05-12] MEDS: Senna/Docusate Sodium 1 Tablet 2 TABLET PO ×2 (07:21→21:39)
[2024-05-12] MEDS: FLUOROMETHOLONE 5 ML DROPS.SUSP LEFT EYE ×2 (07:22→21:35)
[2024-05-12] MEDS: BACITRACIN/POLYMYXIN B 15 GM Tube 1 APPLIC TOPICAL ×2 (07:22→21:40)
[2024-05-12] MEDS: Polyethylene Glycol 3350 17 GM PACKET PO (07:22)
[2024-05-12] MEDS: Ensure Plus High Protein 120 ML LIQUID PO ×3 (07:23→14:40)
[2024-05-12] MEDS: Pantoprazole Sodium 40 MG Tablet PO (07:23)
[2024-05-12] MEDS: Gabapentin 100 MG Capsule PO ×2 (07:27→21:42)
[2024-05-12] MEDS: Multivitamins,Ther W-Minerals Tablet 1 TABLET PO (11:53)
[2024-05-12 12:20] LABS: Bedside Glucose 140 mg/dL (74-106)
[2024-05-12 16:55] LABS: Bedside Glucose 145 mg/dL (74-106)
[2024-05-12 17:23] VITALS: BP 118/70; PULSE 64; RESP 18; TEMP 36.5; O2SAT 99
[2024-05-12 21:25] LABS: Bedside Glucose 117 mg/dL (74-106)
[2024-05-12] MEDS: Insulin Glargine-YFGN 100 UNIT/ML Pen 6 UNIT SC (21:38)
[2024-05-12] MEDS: Atorvastatin Calcium 20 MG Tablet PO (21:41)
[2024-05-13] MEDS: Acetaminophen 500 MG Tablet 1000 MG PO ×3 (06:00→22:54)
[2024-05-13] MEDS: Heparin Injection (Vial) 5,000 UNIT/ML VIAL 5000 UNIT SC ×3 (06:00→22:53)
[2024-05-13 06:01] VITALS: BP 115/49; PULSE 50; RESP 16; TEMP 37.1; O2SAT 97
[2024-05-13 06:41] LABS: Bedside Glucose 100 mg/dL (74-106)
[2024-05-13] MEDS: Omega-3 Acid Ethyl Esters 1 GM Capsule PO (07:15)
[2024-05-13] MEDS: Pantoprazole Sodium 40 MG Tablet PO (07:15)
[2024-05-13] MEDS: BACITRACIN/POLYMYXIN B 15 GM Tube 1 APPLIC TOPICAL ×2 (07:15→22:55)
[2024-05-13] MEDS: Calcium (Elemental) 500 MG Tablet PO (07:15)
[2024-05-13] MEDS: FLUOROMETHOLONE 5 ML DROPS.SUSP LEFT EYE ×2 (07:15→22:55)
[2024-05-13] MEDS: Senna/Docusate Sodium 1 Tablet 2 TABLET PO ×2 (07:15→22:54)
[2024-05-13] MEDS: Propranolol 10 MG Tablet 20 MG PO (07:16)
[2024-05-13] MEDS: Cholecalciferol (VIT D3) 25 MCG TABLET (1,000 UNITS) PO (07:17)
[2024-05-13] MEDS: Lisinopril 10 MG Tablet PO (07:17)
[2024-05-13] MEDS: Ensure Plus High Protein 120 ML LIQUID PO ×3 (07:17→17:05)
[2024-05-13] MEDS: Ascorbic Acid 500 MG Tablet PO (07:18)
[2024-05-13] MEDS: levETIRAcetam 750 MG Tablet 1500 MG PO ×2 (07:18→22:53)
[2024-05-13] MEDS: Polyethylene Glycol 3350 17 GM PACKET PO (07:18)
[2024-05-13] MEDS: Gabapentin 100 MG Capsule PO ×2 (07:20→22:57)
--- NOTE | 2024-05-13 09:47 | PCM.PROGNOTE ---
Subjective Subjective Afebrile VSS -heart rate has ranged from 50-73 over the weekend. Blood pressure is well-controlled. Maintaining appropriate oxygen saturation on RA Oral intake - FOOD good FLUIDS good The blood sugar record was reviewed. FBS this morning was 100. The at bedtime blood sugar was 117 and she is currently receiving 6 units of glargine at bedtime. She is on a sliding scale for mealtime insulin. Has required no mealtime insulin over the weekend. Dexamethasone was tapered to 2 mg once daily today. Discussed with nursing - no problems that need addressed Reviewed the THERAPY notes Medication list reviewed. Karena denies lightheadedness, vertigo, CP, SOB at rest, SOB with exertion, cough, nausea, vomiting, abd pain, diarrhea, constipation, dysuria, calf pain and ankle swelling. Her bowels are now moving well and she is very happy about this and she has a history of chronic constipation. Currently taking senna/docusate and MiraLAX Objective Data Objective Data Vital Signs: Vital Signs Temp Pulse Resp BP Pulse Ox O2 Del Method FiO2 98.7 F 50 L 16 115/49 L 97 Room Air 21 05/13/24 06:01 05/13/24 06:01 05/13/24 06:01 05/13/24 06:01 05/13/24 06:01 05/13/24 06:01 05/03/24 21:26 Oxygen Delivery Method Room Air Weight: 171 lb 8.314 oz Body Mass Index (BMI) 26.9 Intake & Output: Intake and Output for Last 24 Hours 05/11/24 05/12/24 05/13/24 23:59 22:59 23:59 Intake Total 1540 / 1540 2040 / 2040 400 / 400 Output Total 1350 / 1350 1850 / 1850 Balance 190 / 190 190 / 190 400 / 400 Lab / Micro Data 05/10/24 05:19 05/04/24 05:39 Labs: Laboratory Results - last 24 hr 05/12/24 11:55: POC Glucose 140 H 05/12/24 16:31: POC Glucose 145 H 05/12/24 21:06: POC Glucose 117 H 05/13/24 06:14: POC Glucose 100 Micro: Microbiology 05/03/24 15:10 Urine Catheter - Catheter Urine Culture - Final Escherichia coli Physical Exam Const alert, oriented x3 and no apparent distress General Appearance: cooperative HEENT moist oral mucous membranes HEENT Narrative: No thrush Eyes PERRL and EOMs intact bilaterally Neck supple Resp normal respiratory effort, normal air movement and clear to auscultation bilaterally Resp Narrative: No cough with deep breathing. No conversational dyspnea. Effort and Inspection: Negative for tachypneic Cardio regular rate, regular rhythm and no gallops Cardio Narrative: No ectopy GI normal to inspection, nondistended, normoactive bowel sounds, soft to palpation and non-tender GI Narrative: No epigastric pain with palpation. No guarding with palpation. Having regular bowel movements now...... she is very happy about this because she has had chronic constipation for most of her life. She is currently taking MiraLAX 17 g once daily and senna/docusate 2 tabs twice daily. Extremity no calf tenderness General Extremity: Negative for edema Skin Wound Narrative: The craniotomy incision is intact with no dehiscence, no howard-incisional erythema and no discharge. She denies pain with palpation around the area. She also denies cephalgia and lightheadedness. The swelling of the forehead is resolved and the left periorbital edema is mild now. Neuro Neuro Narrative: Still with some dysarthria making it difficult to understand her at times but better than at admission. Psych Psych Narrative: She is pleasant and appropriate. No signs of depression or anxiety. Appearance: appropriate Attitude: No agitated Assessment & Plan Assessment/Plan (1) Debility: (2) Meningioma: (3) Status post craniotomy: (4) Oropharyngeal dysphagia: (5) Acute blood loss anemia: (6) Diabetes mellitus, type 2: QUALIFIERS: Diabetes mellitus halfway insulin use: without intermission coordinator use Diabetes mellitus complication status: with hyperglycemia Qualified Code(s): E11.65 - Type 2 diabetes mellitus with hyperglycemia (7) Bradycardia: (8) Essential tremor: (9) Constipation: QUALIFIERS: Constipation type: chronic idiopathic constipation Qualified Code(s): K59.04 - Chronic idiopathic constipation PLAN: Plan 1. Continue therapy 2. Decrease propranolol to 15 mg p.o. twice daily 3. DC glargine and continue sliding scale insulin before meals and at bedtime. If she is still requiring insulin will start Glucophage. 4. CBC and BMP in the a.m. Charges/Coding Visit Charges Inpatient E&M: 48301 Subs Hosp L1
[2024-05-13 12:28] LABS: Bedside Glucose 119 mg/dL (74-106)
[2024-05-13] MEDS: Multivitamins,Ther W-Minerals Tablet 1 TABLET PO (12:49)
[2024-05-13 17:23] LABS: Bedside Glucose 136 mg/dL (74-106)
[2024-05-13 17:30] VITALS: BP 103/47; PULSE 53; RESP 15; TEMP 36.5; O2SAT 98
[2024-05-13 21:00] LABS: Bedside Glucose 137 mg/dL (74-106)
[2024-05-13 22:00] VITALS: PULSE 59; RESP 15; O2SAT 98
[2024-05-13] MEDS: Atorvastatin Calcium 20 MG Tablet PO (22:54)
[2024-05-13] MEDS: Propranolol 10 MG Tablet 15 MG PO (22:54)
[2024-05-14] MEDS: Acetaminophen 500 MG Tablet 1000 MG PO ×3 (05:22→21:38)
[2024-05-14] MEDS: Heparin Injection (Vial) 5,000 UNIT/ML VIAL 5000 UNIT SC ×3 (05:22→21:37)
[2024-05-14 05:54] LABS: Hematocrit 36.9 % (37-47); Hemoglobin 11.5 g/dL (12.0-15.0); Mean Corp Hgb Conc 31.2 g/dL (32-36); Mean Corpuscular Hgb 30.2 pg (27.0-32.0); Mean Corpuscular Volume 96.9 fL (81-99); Platelet Count 282 K/mm3 (150-450); RBC Distribution Width CV 15.4 % (11.6-14.6); RBC Distribution Width SD 53.7 fl (35.1-43.9); Red Blood Count 3.81 M/mm3 (4.2-5.4); White Blood Count 8.6 K/mm3 (4.4-11.0)
[2024-05-14 06:00] VITALS: BP 95/48; PULSE 57; RESP 16; TEMP 36.5; O2SAT 100
[2024-05-14 06:18] LABS: Anion Gap 5 (5-15); BUN 38 mg/dL (7-18); BUN/Creat Ratio 38.2 RATIO (10-20); Calcium,Total 9.7 mg/dL (8.5-10.1); Chloride 103 mmol/L (98-107); Creatinine, Serum 0.99 mg/dL (0.55-1.02); EST Glomerular Filtration Rate 56 mL/min (>60); Est Glom Filt Rate - Afr Amer 68 mL/min (>60); Estimated Creatinine Clearance 44.65 ml/min; Glucose 100 mg/dL (74-106); Potassium 4.5 mmol/L (3.5-5.1); Sodium Level 137 mmol/L (136-145)
[2024-05-14 07:00] LABS: Bedside Glucose 103 mg/dL (74-106)
[2024-05-14] MEDS: Calcium (Elemental) 500 MG Tablet PO (07:42)
[2024-05-14] MEDS: Ascorbic Acid 500 MG Tablet PO (07:42)
[2024-05-14] MEDS: Propranolol 10 MG Tablet 15 MG PO ×2 (07:42→21:38)
[2024-05-14] MEDS: FLUOROMETHOLONE 5 ML DROPS.SUSP LEFT EYE ×2 (07:42→21:37)
[2024-05-14] MEDS: Polyethylene Glycol 3350 17 GM PACKET PO (07:43)
[2024-05-14] MEDS: BACITRACIN/POLYMYXIN B 15 GM Tube 1 APPLIC TOPICAL ×2 (07:43→21:39)
[2024-05-14] MEDS: Cholecalciferol (VIT D3) 25 MCG TABLET (1,000 UNITS) PO (07:44)
[2024-05-14] MEDS: Senna/Docusate Sodium 1 Tablet 2 TABLET PO (07:44)
[2024-05-14] MEDS: Omega-3 Acid Ethyl Esters 1 GM Capsule PO (07:45)
[2024-05-14] MEDS: Lisinopril 10 MG Tablet PO (07:45)
[2024-05-14] MEDS: levETIRAcetam 750 MG Tablet 1500 MG PO ×2 (07:45→21:38)
[2024-05-14] MEDS: Ensure Plus High Protein 120 ML LIQUID PO ×3 (07:46→16:27)
[2024-05-14] MEDS: Gabapentin 100 MG Capsule PO ×2 (07:47→21:42)
[2024-05-14] MEDS: Pantoprazole Sodium 40 MG Tablet PO (08:22)
--- NOTE | 2024-05-14 10:56 | NURSING ---
Faye from [facility] calls with order that okay to remove sutures if incision is healing well. This nurse reports that we were told that sutures were dissolvable and Faye states that this type of surgery would not use dissolvable sutures and that sutures can be removed today or tomorrow. Faye also wanted to confirm that patient was on Dexamethasone taper and this was confirmed. Call back number for Faye if any questions is [phone] Ex [id number].
--- NOTE | 2024-05-14 11:21 | CASEMGMT ---
Social Work SW spoke with pt to discuss DC plans with pt. Pt is mod I and improving well. IDT offered to set DC date for 05/17. Pt agreed and is very excited to be home. pt requested this worker contact her son, Peterson, to update. SW agreed. SW recommending HHC PT/OT/ST/SN/[facility]. Pt agreeable and does not have a preference for HHC agency. SW provided printed list of skilled HHC agencies with quality and resource data via [employer]. Pt stated her family will be visiting this evening and will assist with making the decision. Pt has no DME needs and family can transport. SW phoned son, Peterson, to update on the above conversation. Son happy to hear of pt's improvements and readiness to DC home. Son is looking forward to the team meeting this week to hear the report from IDT. Son stated he or his brother can transport pt home. Son expressed much appreciation for IDT and care provided to pt. SW to follow for HHC agency selection and upcoming Team meeting. Plan: DC home with 05/17, HHC PT/OT/ST/SN/[facility] LUC[facility]
[2024-05-14 11:56] LABS: Bedside Glucose 116 mg/dL (74-106)
[2024-05-14] MEDS: Multivitamins,Ther W-Minerals Tablet 1 TABLET PO (13:11)
--- NOTE | 2024-05-14 13:42 | PN_ITS ---
Subjective Subjective Afebrile VSS -blood pressure over the past 24 hours has ranged from 95/48 to 115/49. The heart rate is ranged from 50-59. Maintaining appropriate oxygen saturation on RA Oral intake - FOOD good FLUIDS good Blood sugars are well-controlled with no hypoglycemia. Has not had any lispro over the past 24 hours. Discussed with nursing - no problems that need addressed Reviewed the THERAPY notes Medication list reviewed. Currently taking lisinopril 10 mg daily and propranolol 15 mg twice daily. All lab drawn this morning was personally reviewed. White blood cell count is now normal at 8.6. Hemoglobin is stable at 11.5. Platelets are within normal limits. Sodium is 137 and the potassium is 4.5. Bicarb is normal at 29. The BUN is 38 and creatinine is 0.99 for BUN/creatinine ratio of 38.2. Denies lightheadedness. Denies cephalgia, chest pain, cough, sore throat, palpitations, shortness of breath, nausea/vomiting/abdominal pain, constipation, dysuria and calf tenderness. Objective Data Objective Data Vital Signs: Vital Signs Temp Pulse Resp BP Pulse Ox O2 Del Method FiO2 97.7 F L 57 L 16 95/48 L 100 Room Air 21 05/14/24 06:00 05/14/24 06:00 05/14/24 06:00 05/14/24 06:00 05/14/24 06:00 05/14/24 06:00 05/03/24 21:26 Oxygen Delivery Method Room Air Weight: 171 lb 8.314 oz Body Mass Index (BMI) 26.9 Intake & Output: Intake and Output for Last 24 Hours 05/12/24 05/13/24 05/14/24 22:59 23:59 23:59 Intake Total 2040 / 2040 1630 / 1630 785 / 785 Output Total 1850 / 1850 500 / 500 650 / 650 Balance 190 / 190 1130 / 1130 135 / 135 Lab / Micro Data 05/14/24 05:41 05/14/24 05:41 Labs: Laboratory Results - last 24 hr 05/13/24 17:05: POC Glucose 136 H 05/13/24 20:40: POC Glucose 137 H 05/14/24 05:41: WBC 8.6, RBC 3.81 L, Hgb 11.5 L, Hct 36.9 L, MCV 96.9, MCH 30.2, MCHC 31.2 L, RDW Std Deviation 53.7 H, RDW Coeff of Tung 15.4 H, Plt Count 282, MPV 9.0, Sodium 137, Potassium 4.5, Chloride 103, Carbon Dioxide 29.0, Anion Gap 5, BUN 38 H, Creatinine 0.99, Estim Creat Clear Calc 44.65, Est GFR (MDRD) Af Amer 68, Est GFR (MDRD) Non-Af 56 L, BUN/Creatinine Ratio 38.2 H, Glucose 100, Calcium 9.7 05/14/24 06:17: POC Glucose 103 05/14/24 11:37: POC Glucose 116 H Micro: Microbiology 05/03/24 15:10 Urine Catheter - Catheter Urine Culture - Final Escherichia coli Physical Exam Const alert, oriented x3 and no apparent distress HEENT moist oral mucous membranes HEENT Narrative: No thrush Resp normal respiratory effort, normal air movement and clear to auscultation bilaterally Cardio regular rate, regular rhythm and no gallops Cardio Narrative: No ectopy GI normal to inspection, nondistended, normoactive bowel sounds, soft to palpation and non-tender Extremity no calf tenderness General Extremity: Negative for edema Skin Wound Narrative: The craniotomy incision is intact with no dehiscence. There is no howard- incisional erythema and no discharge from the incision. She has no pain with palpation around the incision. Okay to discontinue rick in AM. Neuro Neuro Narrative: Still with some dysarthria making it difficult to understand her at times but, family states she is at her baseline. Swallowing has improved and she no longer has restrictions. Psych Psych Narrative: She is pleasant and appropriate. No signs of depression or anxiety. Appearance: appropriate Attitude: No agitated Assessment & Plan Assessment/Plan (1) Debility: (2) Meningioma: (3) Status post craniotomy: (4) Oropharyngeal dysphagia: (5) Acute blood loss anemia: (6) Diabetes mellitus, type 2: QUALIFIERS: Diabetes mellitus long distance operator insulin use: without [place] [facility] use Diabetes mellitus complication status: with hyperglycemia Qualified Code(s): E11.65 - Type 2 diabetes mellitus with hyperglycemia (7) Bradycardia: (8) Essential tremor: (9) Constipation: QUALIFIERS: Constipation type: chronic idiopathic constipation Q ualified Code(s): K59.04 - Chronic idiopathic constipation PLAN: Plan 1. Continue therapy 2. Decrease lisinopril to 5 mg p.o. daily and hold if systolic is less than 110. 3. Continue the propranolol at 15 mg twice daily but if the blood pressure remains on the low side will likely need to decrease to 10 twice daily or discontinue lisinopril. She is taking propranolol for the essential tremor and likely needs this. Would rather discontinue lisinopril or continue to decrease the dose rather than discontinuing the propranolol. Charges/Coding Visit Charges Inpatient E&M: 58545 Subs Hosp L1
[2024-05-14 16:20] VITALS: BP 88/47; PULSE 62; RESP 18; TEMP 36.5; O2SAT 100
[2024-05-14 17:04] LABS: Bedside Glucose 126 mg/dL (74-106)
[2024-05-14] MEDS: Atorvastatin Calcium 20 MG Tablet PO (21:38)
[2024-05-15 00:52] LABS: Bedside Glucose 118 mg/dL (74-106)
[2024-05-15] MEDS: Acetaminophen 500 MG Tablet 1000 MG PO ×3 (05:25→21:36)
[2024-05-15] MEDS: Heparin Injection (Vial) 5,000 UNIT/ML VIAL 5000 UNIT SC ×3 (05:25→21:33)
[2024-05-15 05:32] VITALS: BMI 26.5
[2024-05-15 06:00] VITALS: BP 100/50; PULSE 58; RESP 16; TEMP 37.1; O2SAT 98
[2024-05-15 06:40] LABS: Bedside Glucose 106 mg/dL (74-106)
[2024-05-15] MEDS: Cholecalciferol (VIT D3) 25 MCG TABLET (1,000 UNITS) PO (07:53)
[2024-05-15] MEDS: Senna/Docusate Sodium 1 Tablet 2 TABLET PO ×2 (07:53→21:36)
[2024-05-15] MEDS: levETIRAcetam 750 MG Tablet 1500 MG PO ×2 (07:54→21:35)
[2024-05-15] MEDS: Ascorbic Acid 500 MG Tablet PO (07:54)
[2024-05-15] MEDS: Calcium (Elemental) 500 MG Tablet PO (07:54)
[2024-05-15] MEDS: Propranolol 10 MG Tablet 15 MG PO ×2 (07:54→21:34)
[2024-05-15] MEDS: Pantoprazole Sodium 40 MG Tablet PO (07:54)
[2024-05-15] MEDS: FLUOROMETHOLONE 5 ML DROPS.SUSP LEFT EYE ×2 (07:54→21:32)
[2024-05-15] MEDS: Polyethylene Glycol 3350 17 GM PACKET PO (07:55)
[2024-05-15] MEDS: Omega-3 Acid Ethyl Esters 1 GM Capsule PO (07:55)
[2024-05-15] MEDS: Gabapentin 100 MG Capsule PO ×2 (07:55→21:38)
[2024-05-15] MEDS: Ensure Plus High Protein 120 ML LIQUID PO ×2 (08:04→12:06)
--- NOTE | 2024-05-15 10:17 | NURSING ---
sutures removed. incision well approximated. no s/s noted. pt tolerated well.
[2024-05-15 11:23] LABS: Bedside Glucose 131 mg/dL (74-106)
[2024-05-15] MEDS: Multivitamins,Ther W-Minerals Tablet 1 TABLET PO (12:04)
--- NOTE | 2024-05-15 13:12 | CASEMGMT ---
Addendum entered by Juanita Carreno 05/15/24 16:09: Social Work Per Peterson, preferred HHC provider is [facility]. Referral to [facility] for PT/OT/ST/SN/UNCLAIMED PROPERTY MANAGER and they are able to accept pt with SOC on 05/20/24. MT Haywood Original Note: Social Work SW met with pt to discuss home health care preferences. Pt stating she would like family's input and requested SW call son Peterson. Phone call to Peterson and home health choices requested. THONG emailed an electronic copy of HHC list and Peterson will review this list and let SW know preferences later today or first thing tomorrow. MT Ignacio
[2024-05-15 17:00] LABS: Bedside Glucose 160 mg/dL (74-106)
[2024-05-15 17:25] VITALS: BP 100/58; PULSE 66; RESP 16; TEMP 36.6; O2SAT 98
[2024-05-15 21:05] VITALS: BP 112/58; PULSE 69
[2024-05-15] MEDS: BACITRACIN/POLYMYXIN B 15 GM Tube 1 APPLIC TOPICAL (21:27)
[2024-05-15] MEDS: Atorvastatin Calcium 20 MG Tablet PO (21:36)
[2024-05-15 22:00] VITALS: PULSE 68; RESP 16; O2SAT 98
[2024-05-15 22:51] LABS: Bedside Glucose 159 mg/dL (74-106)
[2024-05-16] MEDS: Heparin Injection (Vial) 5,000 UNIT/ML VIAL 5000 UNIT SC ×3 (05:44→20:11)
[2024-05-16] MEDS: Acetaminophen 500 MG Tablet 1000 MG PO ×3 (05:44→20:04)
[2024-05-16 06:19] VITALS: BP 108/55; PULSE 73; RESP 16; TEMP 37; O2SAT 97
[2024-05-16 06:48] LABS: Bedside Glucose 115 mg/dL (74-106)
[2024-05-16] MEDS: Polyethylene Glycol 3350 17 GM PACKET PO (09:28)
[2024-05-16] MEDS: Senna/Docusate Sodium 1 Tablet 2 TABLET PO ×2 (09:28→20:05)
[2024-05-16] MEDS: Pantoprazole Sodium 40 MG Tablet PO (09:28)
[2024-05-16] MEDS: Calcium (Elemental) 500 MG Tablet PO (09:29)
[2024-05-16] MEDS: Propranolol 10 MG Tablet 15 MG PO (09:29)
[2024-05-16] MEDS: Gabapentin 100 MG Capsule PO ×2 (09:29→20:03)
[2024-05-16] MEDS: levETIRAcetam 750 MG Tablet 1500 MG PO ×2 (09:29→20:04)
[2024-05-16] MEDS: Omega-3 Acid Ethyl Esters 1 GM Capsule PO (09:29)
[2024-05-16] MEDS: Ascorbic Acid 500 MG Tablet PO (09:29)
[2024-05-16] MEDS: Cholecalciferol (VIT D3) 25 MCG TABLET (1,000 UNITS) PO (09:29)
[2024-05-16] MEDS: Lisinopril 5 MG Tablet PO (09:29)
[2024-05-16] MEDS: FLUOROMETHOLONE 5 ML DROPS.SUSP LEFT EYE ×2 (09:30→20:10)
[2024-05-16] MEDS: Multivitamins,Ther W-Minerals Tablet 1 TABLET PO (11:00)
[2024-05-16] MEDS: Ensure Plus High Protein 120 ML LIQUID PO ×2 (11:00→16:51)
--- NOTE | 2024-05-16 11:03 | PCM.PROGNOTE ---
Subjective Subjective Karena was seen on team rounds today. Her dtr Trina participated by phone. Afebrile VSS - BP is on the low side. She already had 5 mg of Lisinopril today. She denies lightheadedness. Denies increasing fatigue. Not bradycardic. Maintaining appropriate oxygen saturation on RA Oral intake - FOOD good FLUIDS good The blood sugar record was reviewed. All blood sugars yesterday were less than 180. The highest blood sugar was 160 and she is receiving no medication for elevated blood sugars. Last bowel movement was 05/13/2024 and prior to that she had not had a bowel movement since 05/10/2024. She is taking senna 2 tabs twice daily and MiraLAX 17 g once daily. Discussed with nursing - no problems that need addressed Reviewed the THERAPY notes Medication list reviewed. Karena denies cephalgia, neck pain, chest pain, shortness of breath, palpitations, nausea/vomiting/abdominal pain, dysuria, urinary urgency and calf pain. Not coughing, no sore throat. Does not have a fever however, she has been getting Tylenol every 8 hours for pain control. Objective Data Objective Data Vital Signs: Vital Signs Temp Pulse Resp BP Pulse Ox O2 Del Method FiO2 98.6 F 73 16 108/55 L 97 Room Air 21 05/16/24 06:19 05/16/24 06:19 05/16/24 06:19 05/16/24 06:19 05/16/24 06:19 05/16/24 06:19 05/03/24 21:26 Oxygen Delivery Method Room Air Weight: 169 lb 8.568 oz Body Mass Index (BMI) 26.5 Intake & Output: Intake and Output for Last 24 Hours 05/14/24 05/15/24 05/16/24 23:59 23:59 23:59 Intake Total 1745 / 1985 1410 / 1410 680 / 680 Output Total 1250 / 1450 1050 / 1050 650 / 650 Balance 495 / 535 360 / 360 30 / 30 Lab / Micro Data 05/14/24 05:41 05/14/24 05:41 Labs: Laboratory Results - last 24 hr 05/15/24 11:01: POC Glucose 131 H 05/15/24 16:39: POC Glucose 160 H 05/15/24 22:25: POC Glucose 159 H 05/16/24 06:16: POC Glucose 115 H Micro: Microbiology 05/03/24 15:10 Urine Catheter - Catheter Urine Culture - Final Escherichia coli Physical Exam Const alert and no apparent distress Constitutional Narrative: Sitting in the recliner at the bedside. No change in mental status General Appearance: cooperative Neck supple Resp clear to auscultation bilaterally Cardio regular rate and regular rhythm Cardio Narrative: no ectopy GI normal to inspection, nondistended, normoactive bowel sounds, soft to palpation and non-tender GI Narrative: No guarding with palpation Extremity no calf tenderness General Extremity: Negative for edema Skin General Skin Exam: no breakdown Rashes: no rashes Wound Narrative: The craniotomy incision is intact with no erythema, no swelling and no pain to palpation around the incision. Neuro Neuro Narrative: NO change. Speech is slurred but, she is at baseline. Psych affect normal Appearance: appropriate Assessment & Plan Assessment/Plan (1) Debility: (2) Meningioma: (3) Status post craniotomy: (4) Oropharyngeal dysphagia: (5) Acute blood loss anemia: (6) Diabetes mellitus, type 2: QUALIFIERS: Diabetes mellitus exterminator helper insulin use: without senior living use Diabetes mellitus complication status: with hyperglycemia Qualified Code(s): E11.65 - Type 2 diabetes mellitus with hyperglycemia (7) Bradycardia: (8) Essential tremor: (9) Constipation: QUALIFIERS: Constipation type: chronic idiopathic constipation Qualified Code(s): K59.04 - Chronic idiopathic constipation PLAN: Plan 1. Continue therapy 2. Increase MiraLAX to 17 g p.o. twice daily. If she is still not having regular BM's would consider trial of Linzess or referral to GI 3. Discontinue Accu-Cheks 4. Lisinopril was held yesterday for a low blood pressure. She received a decreased dose of 5 mg today. The blood pressure this morning was 108/55. She denies lightheadedness. Heart rate over the past 24 hours has ranged from 58-73. the HR is better with decrease in the dose of the Propanolol to 15 mg BID from 20 mg BID. Will continue to monitor the blood pressure closely. If it remains low we will need to decrease the lisinopril to 2.5 mg daily or discontinue. No sign of infection. Charges/Coding Visit Charges Inpatient E&M: 18442 Subs Hosp L2
[2024-05-16 11:13] LABS: Bedside Glucose 120 mg/dL (74-106)
--- NOTE | 2024-05-16 13:30 | CASEMGMT ---
Addendum entered by Cally Chopra 05/16/24 16:18: Dtr returned call and pt does have toilet hand rails and FWW. Dtr will provide copies of living will. HCPOA are in pt's chart. Original Note: Social Work IDT met with patient and conference call with dtrTrina, for Team meeting. Discussed patient's progress in PT/OT/ST/SN. Educated to [facility] insurance with confirmed DC 05/17. Confirmed pt will DC home with [facility] PT/OT/ST/SN/[facility]. Dtr is going to check if there is a FWW at home. SW offered to coordinate one for DC if needed. Dtr to notify this worker. SW inquired about pt's living will. Dtr unsure if pt has a LW, but will check with family and provide copies if obtained. 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 SW to place referral. Cally Chopra, ROADMASTER WAFER FABRICATION OPERATOR
[2024-05-16 13:50] VITALS: BP 109/50; PULSE 75
[2024-05-16 16:52] LABS: Bedside Glucose 164 mg/dL (74-106)
[2024-05-16 17:29] VITALS: BP 86/43; PULSE 70; RESP 17; TEMP 36.9; O2SAT 98
[2024-05-16 18:30] VITALS: BP 96/51; PULSE 66
[2024-05-16 19:40] VITALS: BP 90/45; PULSE 60
--- NOTE | 2024-05-16 19:51 | NURSING ---
notified of low BP, pt denying symptoms, encouraged to drink more water. Order to hold pm dose of Propanolol and dc Lisinopril.
[2024-05-16] MEDS: Atorvastatin Calcium 20 MG Tablet PO (20:04)
[2024-05-17] MEDS: Acetaminophen 500 MG Tablet 1000 MG PO ×3 (05:01→21:09)
[2024-05-17] MEDS: Heparin Injection (Vial) 5,000 UNIT/ML VIAL 5000 UNIT SC ×3 (05:01→21:08)
[2024-05-17 05:05] VITALS: BP 92/61; PULSE 64; RESP 18; TEMP 36.6; O2SAT 97
[2024-05-17 06:47] LABS: Bedside Glucose 88 mg/dL (74-106)
--- NOTE | 2024-05-17 07:44 | PCM.DC ---
Discharge Instructions Diet Discharge Diet: - (2000 calorie cabr consistent diet. ) Activity Discharge Activity: May Not Drive, May Shower and Use Walker Weight Bearing Status: Full weight bearing Dressing / Incision Call your doctor if your incision/area has: Increased Pain/ Swelling, Increased Redness and Foul Smelling Discharge Call your doctor if you observe: Fever of 101 or Higher, Inability to urinate, Shortness of breath, Dizziness, Fainting spells, Chest pain, Increased palpitations (irregular heartbeat), Calf discomfort, Uncontrolled pain and - (seizure) Suture Line Care: Avoid Pulling/Pushing and Avoid Pinching/Bending Cleanse incision/area with: Soap & Water and - (no dressing needed) Follow Up Care When: appts have been made for you to follow up with Dr. Alamo and others. They are listed later in this document. Test Results: Test results from this visit will be discussed in further detail at your follow-up appointment, if applicable. Pending Tests Upon Discharge: none Discharge Plan Admission Admit Date/Time: 05/03/24 14:05 Primary Reason for Your Visit: Debility secondary to craniotomy for excision recurrent meningioma Attending Provider: Zoey Feng Primary Care Provider: Zoë Kaplan NP Instructions Additional Instructions / Restrictions: 1. You had a urinary tract infection when you arrived on rehab and were treated with appropriate antibiotics. Unfortunately just prior to discharge you developed another urinary tract infection. You have been on steroids to decrease the swelling of the brain post-op. Steroids suppress your immune system. Make sure to wipe from front to back when wiping your backside after a BM. If you are wearing a pad for urine leakage change the pad at least every 3 hours and also change if it gets wet. Go to the toilet and try to urinate at least every 3 hours while awake. Take ALL of the antibiotics prescribed to you. Constipation can lead to urine retention in women and this increases the risk for a urinary tract infection. You have had a problem with constipation for a long time. You have been taking 2 stool softeners while on rehab. You should continue taking both the Senna and the MiraLAX when you get home. They are both twice a day. IF you continue to have constipation while you are on both medications your PCP may want to refer you to a disability advocate OR you could try using a medication called Jacobo.......you can discuss this with your PCP. 2. The blood sugars were elevated when you came to rehab and you were taking insulin. It is the steroids that made the blood sugars go up. The steroids are being tapered off and the blood sugars are good now with no insulin. 3. Your blood pressures have been low on rehab and your heart rate dropped into the 40's........normal is 60-100. I had to decrease the dose of the Propranolol to 15 mg twice a day. The heart rate improved with the decrease in the dose but, your blood pressure kept dropping. Propranolol treats the tremors BUT, it also decreases heart rate and blood pressure. We had to hold some doses of the propranolol due to low blood pressure and the tremors got worse. If the blood pressure stays low or the heart rate decreases again you may need to stop the Propranolol and try a new drug to control the tremors. If this happens you should discuss this with neurology. 4. You had a seizure after the operation and you were started on an anti-epileptic drug called Keppra. You have not had any seizures while on rehab. You are going to follow up in the epilepsy clinic at [facility]. After the swelling in the brain has resolved you MAY not need Keppra anymore. Continue taking this medication twice a day until the epilepsy doctor tells you otherwise. 5. It was a pleasure meeting you Karena. You brightened everyone's day with your smile and good attitude. If you or your family have any questions after you leave rehab please do not hesitate to call me. OFFICE: [phone] CELL: [phone] NURSES STATION ON REHAB: [phone] If you have not had a BM in 3 days take a laxative on the 4th day. I think you are getting urinary tract infections (UTI) due to constipation. It is a frequent cause of UTI in women. You are now taking 2 stool softeners, MiraLAX and Senna. You need to continue taking both of these medications. Also, make sure to drink enough water daily to keep the urine a pale yellow. Discharge Orders/Prescriptions Prescriptions: New sennosides-docusate sodium [Stimulant Laxative Plus] 8.6-50 mg Tablet 2 tab PO BID Qty: 120 0RF propranolol 10 mg Tablet 15 mg PO BID Qty: 90 0RF Rx Instructions: 1 and a half tablets twice a day cefadroxil 500 mg capsule 500 mg PO BID Qty: 12 0RF Rx Instructions: 1 tab twice a day until gone. dexamethasone 1 mg tablet 1 mg PO DAILY Qty: 4 0RF Rx Instructions: take one tab daily until gone. Continued Centrum Women 18-400 mg-mcg tablet 1 tab PO DAILY Fish Oil 900 mg-360 mg- 455 mg-1,000 mg capsule 1 cap PO DAILY gabapentin 100 mg capsule 100 mg PO BID simvastatin 40 mg tablet 40 mg PO QHS ascorbic acid (vitamin C) [Vitamin C] 500 mg tablet 1 g PO DAILY cholecalciferol (vitamin D3) 25 mcg (1,000 unit) capsule 25 mcg PO DAILY calcium carbonate 500 mg calcium (1,250 mg) tablet 500 mg PO DAILY fluorometholone 0.1 % drops,suspension 1 drp LEFT EYE BID pantoprazole [Protonix] 40 mg tablet,delayed release (DR/EC) 40 mg PO DAILY Qty: 14 0RF levetiracetam [Keppra] 750 mg tablet 1,500 mg PO BID Qty: 120 0RF Changed acetaminophen 500 mg tablet 1,000 mg PO Q8 PRN (Reason: pain/fever) Qty: 1 0RF Discontinued bacitracin zinc-polymyxin B 500-10,000 unit/gram ointment 1 applic topical Q12H heparin (porcine) 5,000 unit/mL solution 5,000 unit subcut Q8H hydralazine 10 mg tablet 10 mg PO Q4H PRN (Reason: hypertension) Rx Instructions: until target blood pressure attained ondansetron 4 mg tablet,disintegrating 4 mg PO Q6H PRN (Reason: nausea and vomiting) oxycodone 5 mg tablet 5 mg PO Q4H PRN (Reason: pain) lisinopril 10 mg tablet 10 mg PO DAILY nystatin 100,000 unit/gram powder 1 applic topical BID propranolol 20 mg tablet 20 mg PO BID Referrals / Follow Up: Genny Alamo-Neurology [Other] - 05/20/24 2:00 pm Nicola Lee [Other] - 08/01/24 11:00 am (at the [facility] ) Moises Cline [Other] - 07/04/24 11:00 am (f/u for seizure medication ) Zoë Kaplan [employer], [employer] [Primary Care Provider] - 05/27/24 9:00 am Disposition Disposition (needs filled in before D/C Order can be placed): Home Health Service
[2024-05-17] MEDS: Cholecalciferol (VIT D3) 25 MCG TABLET (1,000 UNITS) PO (08:22)
[2024-05-17] MEDS: FLUOROMETHOLONE 5 ML DROPS.SUSP LEFT EYE ×2 (08:22→21:08)
[2024-05-17] MEDS: Gabapentin 100 MG Capsule PO ×2 (08:22→21:09)
[2024-05-17] MEDS: Omega-3 Acid Ethyl Esters 1 GM Capsule PO (08:22)
[2024-05-17] MEDS: levETIRAcetam 750 MG Tablet 1500 MG PO ×2 (08:22→21:08)
[2024-05-17] MEDS: Calcium (Elemental) 500 MG Tablet PO (08:22)
[2024-05-17] MEDS: Pantoprazole Sodium 40 MG Tablet PO (08:22)
[2024-05-17 08:23] LABS: Mucous, Urine 0 SEEN /hpf (<or=2+)
[2024-05-17] MEDS: Ascorbic Acid 500 MG Tablet PO (08:23)
--- NOTE | 2024-05-17 08:23 | CASEMGMT ---
Addendum entered by Cally Chopra 05/17/24 16:01: late entry 0900: THONG spoke with Dr. Feng who is postponing pt's DC until 05/20 and will speak with family once lab results are given, but requesting this worker phone dtr to update on low BP, urine cloudy, and getting labs. SW phoned dtr, Trina, but phone number listed in the chart is pt's . SW updated and provided SW with dtr's work phone number. SW phoned dtr and updated her on above. Dtr expressed understanding and agreeable. SW updated [facility]. Updated chart with accurate phone numbers for dtr. -- 1600: stated pt has a UTI and confirmed DC 05/20 AM for pt to DC to go to surgeon's appt at 1400. Plan: DC home with 05/20, [facility] LUCINDA Hopkins Original Note: Social Work Dr. Feng notified this worker that pt's BP is low and may not be stable to DC this date. Will keep this worker updated. THONG phoned [facility] to update and will notify of new DC date. LUCINDA Hopkins
[2024-05-17] MEDS: Ensure Plus High Protein 120 ML LIQUID PO ×2 (08:24→11:57)
[2024-05-17 08:59] LABS: Color, Urine Yellow (Yellow); Glucose, Dipstick Normal (Normal); Ketone-Dipstick Negative (Negative); Leukocyte Esterase-Dipstick 500 /ul (Negative); Nitrite-Dipstick Negative (Negative); Occult Blood-Urine 10 /ul (Negative); Protein-Dipstick Negative (Negative); Urine Bilirubin Dipstick Negative (Negative); Urine Clarity Sl. Cloudy (Clear); Urine Urobilinogen Normal (Normal)
[2024-05-17 09:23] LABS: Squamous Epithelial Cells - UA 0-5 SEEN /hpf (5-10)
[2024-05-17 09:24] LABS: Absolute Lymphocyte Count 1.83 X10^3/uL (0.83-4.51); Absolute Neutrophil Count 3.8 X10^3/uL (2.0-7.7); Basophil# 0.03 X10^3/uL; Basophil% 0.5 % (0-1); Eosinophil# 0.19 X10^3/uL; Eosinophils% 3.1 % (0-5); Hematocrit 33.8 % (37-47); Lymphocyte # 1.83 X10^3/ul (0.83-4.51); Lymphocyte % 29.6 % (19-41); Mean Corp Hgb Conc 32.5 g/dL (32-36); Mean Corpuscular Hgb 31.4 pg (27.0-32.0); Mean Corpuscular Volume 96.6 fL (81-99); Mean Platelet Vol. 9.3 fl (6.2-12.0); Monocyte# 0.34 X10^3/uL; Monocyte% 5.5 % (0-10); NRBC Flagged by Analyzer 0 % (0-5); Neutrophil # 3.77 X10^3/uL (2.7-7.7); Platelet Count 196 K/mm3 (150-450); RBC Distribution Width CV 15.6 % (11.6-14.6); RBC Distribution Width SD 54.4 fl (35.1-43.9); White Blood Count 6.2 K/mm3 (4.4-11.0)
[2024-05-17 09:24] LABS: Bacteria 3+ /hpf (None Seen); Red Blood Cells-Urine 0-5 SEEN /hpf (0-5); Renal Epithelial Cells 0-5 SEEN /hpf (0-5); White Blood Cells >100 SEEN /hpf (0-5)
[2024-05-17 09:35] LABS: Anion Gap 4 (5-15); BUN 30 mg/dL (7-18); Calcium,Total 9.3 mg/dL (8.5-10.1); Chloride 106 mmol/L (98-107); Creatinine, Serum 1.07 mg/dL (0.55-1.02); EST Glomerular Filtration Rate 52 mL/min (>60); Est Glom Filt Rate - Afr Amer 63 mL/min (>60); Estimated Creatinine Clearance 41.09 ml/min; Glucose 118 mg/dL (74-106); Potassium 4.1 mmol/L (3.5-5.1); Sodium Level 137 mmol/L (136-145)
[2024-05-17] MEDS: Cosyntropin 0.25 MG in 0.9% Normal Saline (Pres. free 4 ML 150 MG IV (09:49)
[2024-05-17] MEDS: 0.9% Saline Lock 10 ML Syringe IV ×2 (10:33→21:13)
[2024-05-17] MEDS: Ceftriaxone 1 GM/50 ML BAG IV (10:34)
[2024-05-17] MEDS: Multivitamins,Ther W-Minerals Tablet 1 TABLET PO (11:57)
--- NOTE | 2024-05-17 14:49 | PCM.PROGNOTE ---
Subjective Subjective Afebrile VSS -blood pressure last evening was 86/43 and propranolol was held. Despite holding propranolol the blood pressure this a.m. is only 92/61. Heart rate is within normal limits. Lisinopril was discontinued after the dose yesterday morning. Maintaining appropriate oxygen saturation on RA Oral intake - FOOD good FLUIDS fair.....nursing strongly encouraged increased fluids last night. Discussed with nursing - BP low...meds held last night. Reviewed the THERAPY notes Medication list reviewed. Lab was ordered and showed a normal white blood cell count of 6.2 with 61% neutrophils. Platelets were normal and the hemoglobin is 11, down from 11.5 on 05/14/2024. This is stable. Electrolytes are within normal limits. The BUN is 30, down from 38 on 05/14/2024. Creatinine is 1.07 which is up from 0.99 on 05/14/2024. Baseline cortisol is 6.3 and the post Cortrosyn cortisol is still pending. A straight cath UA showed greater than 100 WBCs per high-power field with 3+ bacteria. Urine culture was ordered. Karena denies lightheadedness, cephalgia, vertigo, chest pain, cough, sore throat, shortness of breath, nausea/vomiting/abdominal pain and calf pain. When nursing perform the straight cath she had 900 cc in her bladder and did not have the urge to urinate. Objective Data Objective Data Vital Signs: Vital Signs Temp Pulse Resp BP Pulse Ox O2 Del Method FiO2 97.8 F 64 18 92/61 97 Room Air 21 05/17/24 05:05 05/17/24 05:05 05/17/24 05:05 05/17/24 05:05 05/17/24 05:05 05/17/24 05:05 05/03/24 21:26 Oxygen Delivery Method Room Air Weight: 169 lb 8.568 oz Body Mass Index (BMI) 26.5 Intake & Output: Intake and Output for Last 24 Hours 05/15/24 05/16/24 05/17/24 23:59 23:59 23:59 Intake Total 1410 / 1410 1830 / 1830 1415 / 1415 Output Total 1050 / 1050 950 / 950 1300 / 1300 Balance 360 / 360 880 / 880 115 / 115 Lab / Micro Data 05/17/24 09:13 05/17/24 09:13 Labs: Laboratory Results - last 24 hr 05/16/24 16:32: POC Glucose 164 H 05/17/24 06:30: POC Glucose 88 05/17/24 08:00: Urine Color Yellow, Urine Clarity Sl. Cloudy, Urine pH 6.0, Ur Specific Henderson 1.010, Urine Protein Negative, Urine Glucose (UA) Normal, Urine Ketones Negative, Urine Occult Blood 10 H, Urine Nitrite Negative, Urine Bilirubin Negative, Urine Urobilinogen Normal, Ur Leukocyte Esterase 500 H, Urine RBC 0-5 SEEN, Urine WBC >100 SEEN, Ur Squamous Epith Cells 0-5 SEEN, Ur Renal Epithelial Cell 0-5 SEEN, Urine Bacteria 3+, Urine Mucus 0 SEEN 05/17/24 09:13: WBC 6.2, RBC 3.50 L, Hgb 11.0 L, Hct 33.8 L, MCV 96.6, MCH 31.4, MCHC 32.5, RDW Std Deviation 54.4 H, RDW Coeff of Tung 15.6 H, Plt Count 196, MPV 9.3, Immature Gran % (Auto) 0.300, Neut % (Auto) 61.0, Lymph % (Auto) 29.6, Archuleta % (Auto) 5.5, Eos % (Auto) 3.1, Baso % (Auto) 0.5, Absolute Neuts (auto) 3.8, Absolute Lymphs (auto) 1.83, Nucleated RBC % 0, Sodium 137, Potassium 4.1, Chloride 106, Carbon Dioxide 28.0, Anion Gap 4 L, BUN 30 H, Creatinine 1.07 H, Estim Creat Clear Calc 41.09, Est GFR (MDRD) Af Amer 63, Est GFR (MDRD) Non-Af 52 L, BUN/Creatinine Ratio 28.0 H, Glucose 118 H, Calcium 9.3, Cortisol 6.30 Micro: Microbiology 05/03/24 15:10 Urine Catheter - Catheter Urine Culture - Final Escherichia coli Physical Exam Const alert and no apparent distress Constitutional Narrative: Sitting in the recliner at the bedside. No change in mental status. Does not appear toxic/ill. General Appearance: cooperative HEENT moist oral mucous membranes HEENT Narrative: MM are moist with no evidence of thrush. Eyes PERRL, EOMs intact bilaterally, conjunctivae normal and no scleral icterus Eyes Narrative: No visual field cuts. Neck supple Chest Chest: symmetrical chest wall rise Resp normal respiratory effort and clear to auscultation bilaterally Resp Narrative: No cough with deep breathing. Effort and Inspection: Negative for tachypneic Cardio regular rate, regular rhythm, no rub and no gallops Cardio Narrative: no ectopy GI normal to inspection, nondistended, normoactive bowel sounds, soft to palpation and non-tender GI Narrative: No guarding with palpation Back/Spine no CVA tenderness Extremity no calf tenderness General Extremity: Negative for edema Skin no jaundice and no mottling Skin Narrative: Left frontal craniotomy incision which is intact with no howard-incisional erythema, no purulent discharge and no dehiscence. General Skin Exam: no breakdown Rashes: no rashes Wound Narrative: The craniotomy incision is intact with no erythema, no swelling and no pain to palpation around the incision. Neuro moves all extremities and no sensory deficits noted Neuro Narrative: NO change. Speech is slurred but, she is at baseline. Psych affect normal Psych Narrative: She is pleasant and appropriate. No signs of depression or anxiety. Appearance: appropriate Attitude: No agitated Activity / Motor Behavior: Negative for restless Mood & Affect: Negative for depressed or anxious Assessment & Plan Assessment/Plan (1) Hypotension: QUALIFIERS: Hypotension type: unspecified hypotension type Qualified Code(s): I95.9 - Hypotension, unspecified (2) Acute cystitis: QUALIFIERS: Hematuria presence: without hematuria Qualified Code(s): N30.00 - Acute cystitis without hematuria (3) Debility: (4) Meningioma: (5) Status post craniotomy: (6) Oropharyngeal dysphagia: (7) Acute blood loss anemia: (8) Diabetes mellitus, type 2: QUALIFIERS: Diabetes mellitus retirement insulin use: without termination clerk use Diabetes mellitus complication status: with hyperglycemia Qualified Code(s): E11.65 - Type 2 diabetes mellitus with hyperglycemia (9) Essential tremor: (10) Constipation: QUALIFIERS: Constipation type: chronic idiopathic constipation Qualified Code(s): K59.04 - Chronic idiopathic constipation PLAN: This may be contributing to intermittent urine retention. This has been a problem for quite some time. she is now on Senna and MiraLAX BID and she had a BM yesterday and a BM today. PLAN: Plan 1. Cancel discharge 2. Hold therapy today for hypotension........if she is lightheaded. Can resume when the BP improves. 3. Hold Propranolol today. Resume in the AM at 10 mg BID IF the systolic is at least 105 and the HR is >59 4. Continue to hold lisinopril. 5. Start Rocephin 1 g IV daily and continue until results of the urine culture are available. She grew a pansensitive E. coli at presentation to rehab. 6. Continue MiraLAX and senna twice daily at DC. 7. Family updated. Plan is for DC Monday IF she is stable. Charges/Coding Visit Charges Inpatient E&M: 77050 Subs Hosp L2
[2024-05-17 17:42] VITALS: BP 115/61; PULSE 75; RESP 16; TEMP 36.6; O2SAT 98
[2024-05-17 17:42] LABS: Bedside Glucose 148 mg/dL (74-106)
[2024-05-17] MEDS: Atorvastatin Calcium 20 MG Tablet PO (21:08)
[2024-05-17] MEDS: Senna/Docusate Sodium 1 Tablet 2 TABLET PO (21:09)
[2024-05-18 06:00] VITALS: BP 138/64; PULSE 66; RESP 18; TEMP 37.1; O2SAT 99
[2024-05-18] MEDS: Acetaminophen 500 MG Tablet 1000 MG PO ×3 (06:11→20:26)
[2024-05-18] MEDS: Heparin Injection (Vial) 5,000 UNIT/ML VIAL 5000 UNIT SC ×3 (06:11→20:24)
[2024-05-18] MEDS: Calcium (Elemental) 500 MG Tablet PO (07:51)
[2024-05-18] MEDS: Omega-3 Acid Ethyl Esters 1 GM Capsule PO (07:51)
[2024-05-18] MEDS: Ascorbic Acid 500 MG Tablet PO (07:51)
[2024-05-18] MEDS: Pantoprazole Sodium 40 MG Tablet PO (07:51)
[2024-05-18] MEDS: Propranolol 10 MG Tablet PO (07:51)
[2024-05-18] MEDS: Cholecalciferol (VIT D3) 25 MCG TABLET (1,000 UNITS) PO (07:51)
[2024-05-18] MEDS: Senna/Docusate Sodium 1 Tablet 2 TABLET PO ×2 (07:52→20:26)
[2024-05-18] MEDS: levETIRAcetam 750 MG Tablet 1500 MG PO ×2 (07:52→20:25)
[2024-05-18] MEDS: FLUOROMETHOLONE 5 ML DROPS.SUSP LEFT EYE ×2 (07:52→20:24)
[2024-05-18] MEDS: Ensure Plus High Protein 120 ML LIQUID PO ×3 (07:55→16:45)
[2024-05-18] MEDS: Gabapentin 100 MG Capsule PO ×2 (07:55→20:26)
[2024-05-18] MEDS: Ceftriaxone 1 GM/50 ML BAG IV (09:00)
[2024-05-18] MEDS: Multivitamins,Ther W-Minerals Tablet 1 TABLET PO (12:33)
[2024-05-18 17:45] VITALS: BP 116/49; PULSE 72; RESP 16; TEMP 36.9; O2SAT 98
[2024-05-18] MEDS: Atorvastatin Calcium 20 MG Tablet PO (20:25)
[2024-05-18] MEDS: 0.9% Saline Lock 10 ML Syringe IV (20:26)
[2024-05-19 06:00] VITALS: BP 154/76; PULSE 65; RESP 17; TEMP 36.8; O2SAT 100
[2024-05-19] MEDS: Heparin Injection (Vial) 5,000 UNIT/ML VIAL 5000 UNIT SC ×3 (06:10→21:05)
[2024-05-19] MEDS: Acetaminophen 500 MG Tablet 1000 MG PO ×3 (06:11→21:04)
[2024-05-19] MEDS: Ascorbic Acid 500 MG Tablet PO (07:54)
[2024-05-19] MEDS: Calcium (Elemental) 500 MG Tablet PO (07:54)
[2024-05-19] MEDS: Propranolol 10 MG Tablet PO ×2 (07:54→07:55)
[2024-05-19] MEDS: FLUOROMETHOLONE 5 ML DROPS.SUSP LEFT EYE ×2 (07:54→21:09)
[2024-05-19] MEDS: Gabapentin 100 MG Capsule PO ×2 (07:55→21:08)
[2024-05-19] MEDS: Omega-3 Acid Ethyl Esters 1 GM Capsule PO (07:55)
[2024-05-19] MEDS: Pantoprazole Sodium 40 MG Tablet PO (07:55)
[2024-05-19] MEDS: Cholecalciferol (VIT D3) 25 MCG TABLET (1,000 UNITS) PO (07:55)
[2024-05-19] MEDS: levETIRAcetam 750 MG Tablet 1500 MG PO ×2 (07:55→21:05)
[2024-05-19] MEDS: Senna/Docusate Sodium 1 Tablet 2 TABLET PO ×2 (07:55→21:08)
[2024-05-19] MEDS: Ensure Plus High Protein 120 ML LIQUID PO ×3 (07:56→17:10)
[2024-05-19 10:28] VITALS: BP 132/55; PULSE 79
[2024-05-19] MEDS: Ceftriaxone 1 GM/50 ML BAG IV (11:19)
[2024-05-19] MEDS: Multivitamins,Ther W-Minerals Tablet 1 TABLET PO (11:21)
[2024-05-19 18:00] VITALS: BP 118/65; PULSE 80; RESP 17; TEMP 36.1; O2SAT 96
[2024-05-19] MEDS: Atorvastatin Calcium 20 MG Tablet PO (21:05)
[2024-05-19] MEDS: 0.9% Saline Lock 10 ML Syringe IV (21:09)
[2024-05-20] MEDS: Acetaminophen 500 MG Tablet 1000 MG PO (06:09)
[2024-05-20] MEDS: Heparin Injection (Vial) 5,000 UNIT/ML VIAL 5000 UNIT SC (06:10)
[2024-05-20 06:14] VITALS: BP 141/71; PULSE 71; RESP 18; TEMP 36.6; O2SAT 99
[2024-05-20] MEDS: Propranolol 10 MG Tablet PO (08:04)
[2024-05-20] MEDS: Calcium (Elemental) 500 MG Tablet PO (08:04)
[2024-05-20] MEDS: Multivitamins,Ther W-Minerals Tablet 1 TABLET PO (08:04)
[2024-05-20] MEDS: Senna/Docusate Sodium 1 Tablet 2 TABLET PO (08:04)
[2024-05-20] MEDS: levETIRAcetam 750 MG Tablet 1500 MG PO (08:04)
[2024-05-20] MEDS: FLUOROMETHOLONE 5 ML DROPS.SUSP LEFT EYE (08:04)
[2024-05-20] MEDS: Omega-3 Acid Ethyl Esters 1 GM Capsule PO (08:04)
[2024-05-20] MEDS: Cholecalciferol (VIT D3) 25 MCG TABLET (1,000 UNITS) PO (08:04)
[2024-05-20] MEDS: Ascorbic Acid 500 MG Tablet PO (08:04)
[2024-05-20] MEDS: Gabapentin 100 MG Capsule PO (08:05)
[2024-05-20] MEDS: Pantoprazole Sodium 40 MG Tablet PO (08:06)
[2024-05-20] MEDS: Ensure Plus High Protein 120 ML LIQUID PO (08:13)
--- NOTE | 2024-05-20 09:18 | DS.PCM_ITS ---
Providers Date of Admission: 05/03/24 Date of Discharge: 05/20/24 Primary Care Physician: KEHINDE Barclay Reason For Visit: CRANIOTOMY TO EXCISE RECURRENT MENINGIOMA Diagnosis Discharge Diagnosis (1) Debility: Status: Acute Code(s): R53.81 - Other malaise (2) Meningioma: Status: Chronic Code(s): D32.9 - Benign neoplasm of meninges, unspecified Plan: Recurrent meningioma. Excised on 04/26/[address] Alamo. (3) Status post craniotomy: Status: Acute Code(s): Z98.890 - Other specified postprocedural states (4) Seizures: Status: Acute Code(s): R56.9 - Unspecified convulsions Plan: Reshma had no seizures while on rehab. She is being discharged on Keppra 1500 mg twice daily and will follow-up with the epilepsy clinic at [facility]. (5) Hypotension: Status: Resolved Code(s): I95.9 - Hypotension, unspecified Qualifiers: Hypotension type: unspecified hypotension type Qualified Code(s): I95.9 - Hypotension, unspecified Plan: Reshma was taking lisinopril 10 mg daily and propranolol 20 mg twice daily (for essential tremor) at admission to rehab. She required as needed hydralazine to control the blood pressure the first week in rehab. As the dexamethasone was tapered the blood pressure started to fall and lisinopril had to be discontinued. Propranolol was decreased to 15 mg twice daily due to bradycardia. On 05/17/24 she was hypotensive and Propranolol had to be held and then restarted at 10 mg BID. W/U revealed a recurrent UTI. She was treated with appropriate antibiotics and the BP recovered. At the time of DC her BP was 118/65 - 141/71. Propranolol was increased to 15 mg BID at DC from rehab. (6) Acute cystitis: Status: Acute Code(s): N30.00 - Acute cystitis without hematuria Qualifiers: Hematuria presence: without hematuria Qualified Code(s): N30.00 - Acute cystitis without hematuria Plan: She had a UTI at admission to rehab due to a pansensitive E. Coli which was likely related to a Armendarzi catheter. She was treated with a 7 day course of antibiotics. Prior to DC she had a recurrent UTI, also due to a pansensitive E. coli. She was treated with 4 days of IV Rocephin and then transitioned to Cefadroxil for an additional 6 days. Reshma has had a problem with chronic constipation for many years. When she gets constipated she retains urine and I suspect this leads to the UTIs. She has been taking senna 2 tabs twice a day and MiraLAX 17 g twice daily while on rehab. I recommended at discharge that if she goes 3 days without a bowel movement on the fourth day she should take a laxative in the AM on the 4th day. (7) Oropharyngeal dysphagia: Status: Chronic Code(s): R13.12 - Dysphagia, oropharyngeal phase Plan: Improved since admission to rehab. Will continue with ST with [facility] at [place] for swallowing and for cognitive dysfunction. (8) Dysarthria: Status: Chronic Code(s): R47.1 - Dysarthria and anarthria Plan: She is at her baseline at [place] from rehab. (9) Cognitive dysfunction: Status: Acute Code(s): F09 - Unspecified mental disorder due to known physiological condition (10) Acute blood loss anemia: Status: Acute Code(s): D62 - Acute posthemorrhagic anemia Plan: Hemoglobin is stable at 11 at discharge from rehab. (11) Diabetes mellitus, type 2: Status: Chronic Code(s): E11.9 - Type 2 diabetes mellitus without complications Qualifiers: Diabetes mellitus skilled nursing insulin use: without skilled nursing use Diabetes mellitus complication status: with hyperglycemia Qualified Code(s): E11.65 - Type 2 diabetes mellitus with hyperglycemia Plan: Initially was on Glargine and SSI TID AC at admission to rehab. She was also on a 2000 calorie carb controlled diet. As the Dexamethasone was tapered the blood sugars dropped and both Glargine and SSI were discontinued. She had not been getting any insulin for a few days prior to DC and there were no BS's > 160. She will continue a carb controlled diet at [place] from rehab. (12) Essential tremor: Status: Chronic Code(s): G25.0 - Essential tremor (13) Constipation: Status: Chronic Code(s): K59.00 - Constipation, unspecified Qualifiers: Constipation type: chronic idiopathic constipation Qualified Code(s): K 59.04 - Chronic idiopathic constipation Plan: This may be contributing to intermittent urine retention. This has been a problem for quite some time. she is now on Senna and MiraLAX BID and she had a BM yesterday and a BM today. Plan 1. DC home with [facility] home health care for PT/OT/ST/SN/LEON. 2. She has a follow up appt with Dr. Alamo on the day of DC from rehab and she will also follow up with Zoë Kaplan (PCP) and the epilepsy clinic at [facility]. APPTS have been made for her. 3. RX's were faxed to the retail pharmacy. 4. DME at [place] includes a WW. 5. RX given for 12 doses of Cefadroxil 500 mg BID to complete a 10 day course of antibiotics for recurrent E. Coli cystitis. Medications at Discharge Home Medications ascorbic acid (vitamin C) 500 mg tablet (Vitamin C) 1 g PO DAILY supplement 05/03/24 calcium carbonate 500 mg PO DAILY supplement 05/03/24 cholecalciferol (vitamin D3) 25 mcg (1,000 unit) capsule 25 mcg PO DAILY supplement 05/03/24 fluorometholone 0.1 % eye drops,suspension 1 drp LEFT EYE BID eye drop 05/03/24 gabapentin 100 mg capsule 100 mg PO BID nerve pain 05/03/24 multivitamin-ferrous fumarate-folic acid 18 mg-400 mcg tablet (Centrum Women) 1 tab PO DAILY supplement 05/03/24 omega-3 900 mg-dha 360 mg-epa 455 mg-fish oil 1,000 mg capsule (Fish Oil) 1 cap PO DAILY supplement 05/03/24 simvastatin 40 mg tablet 40 mg PO QHS cholesterol 05/03/24 acetaminophen 500 mg tablet 1,000 mg (2 x 500 mg) PO Q8 PRN pain/fever #1 TAB 05/17/24 levetiracetam 750 mg tablet (Keppra) 1,500 mg (2 x 750 mg) PO BID seizure #120 tabs 05/17/24 pantoprazole 40 mg tablet,delayed release (Protonix) 40 mg PO DAILY acid reflux #14 tabs 05/17/24 propranolol 10 mg tablet 15 mg (1.5 x 10 mg) PO BID #90 tabs 05/17/24 sennosides 8.6 mg-docusate sodium 50 mg tablet (Stimulant Laxative Plus) 2 tab PO BID #120 tabs 05/17/24 cefadroxil 500 mg capsule 500 mg PO BID #12 caps 05/20/24 dexamethasone 1 mg tablet 1 mg PO DAILY #4 tabs 05/20/24 Hospital Course Operations - (Craniotomy for excision of recurrent meningioma on 04/26/[address] Alamo at [facility].) Procedures None Summary of Care Provided Minutes Spent on Discharge: 40 Hospital Course: RESHMA EVANS, is a 83 YO F with a PMH of hypertension, essential tremor, diet-controlled diabetes mellitus type 2 (HGBA1C was 5.8% at [facility] prior to surgery), dysarthria, obstructive sleep apnea (does not tolerate CPAP) and a left sphenoid wing meningioma (had a meningioma resection in 2010 and now it is recurrent) who underwent a left frontal craniotomy on 04/26/[address] [facility] by Dr. Alamo to resect a recurrent meningioma. Post operatively she was started on Keppra 1,000 mg BID. She had a breakthrough seizure and Keppra was increased to 1500 mg twice daily. She had not had any additional seizures in the few days prior to discharge to rehab. She had had some difficulty with speech/word finding and oropharyngeal dysphagia post operatively. She was transferred to the acute inpt rehab unit at [facility] on 05/03/24 for 3 hours of therapy daily to restore function/independence at or near her level prior to the surgery. Reshma complained of dysuria at presentation to rehab. She had a Armendariz catheter post op at [facility] and was transitioned to a pure wick catheter. A straight cath urine was obtained and showed 2+ bacteria and 25-50 WBCs. Urine culture was positive for pansensitive E. coli and she was treated with 7 days of antibiotics. The symptoms resolved. On 05/17/24 she became hypotensive and a straight cath urine was positive for recurrent pansensitive E. coli acute cystitis. At the time of the straight cath on that date she had 900 cc's of urine in the bladder and had no urge to urinate. She was treated with IV Rocephin X 4 days and was discharged on cefadroxil 500 mg twice daily for 6 days to complete 10 days of treatment for recurrent cystitis. Reshma has had a problem with chronic constipation for many years. She was constipated at presentation to rehab. She was started on Senna/docusate 2 tabs BID but, she continued to have constipation and MiraLAX was added to the drug regimen once a day. This later had to be increased to BID. At the time of [place] she is having BM's every 1-3 days. She was instructed to continue Senna and MiraLAX at [place] and to take a laxative if she has not moved her bowels in 3 days. I suspect the constipation is contributing to UTI's. The hemoglobin at presentation to rehab was 10.8 and it remained stable. On 05/17/2024 the hemoglobin was 11. As the steroids were tapered the BP decreased and Lisinopril was discontinued. She was bradycardic in the 40's on propranolol 20 mg twice daily and the dose was decreased to 15 mg twice daily. There was no change in the essential tremor with the decrease in the dose of propranolol to 15 mg twice daily. When she developed a recurrent UTI propranolol had to be held due to hypotension. The essential tremor increased. Once the hypotension resolved the propranolol was restarted at 10 mg twice daily. With treatment of UTI the blood pressure recovered and she was able to be discharged on 15 mg twice daily. At the time of discharge Reshma has ambulated 300 feet with a front wheeled walker at mod I. She can ascend/descend two 6 inch steps with 1 handrail x 2 trials at close standby assist. She is supervision/set up for eating, grooming and tub/shower transfer. She is standby assist for toileting and toilet transfer and modified independent with bathing, lower body dressing and upper body dressing. Reshma was discharged from acute rehab on 05/20/2024 to attend an appt with Dr. Alamo later in the day. Appts were made for Reshma to follow up with Zoë Kaplan NP (PCP) and with the epilepsy clinic at [facility]. She will have [facility] at [place] for PT/OT/ST/SN/LEON. Physical Exam Const alert and no apparent distress Constitutional Narrative: Sitting in the recliner at the bedside. No change in mental status. Does not appear toxic/ill. General Appearance: cooperative and well kempt HEENT moist oral mucous membranes HEENT Narrative: MM are moist with no evidence of thrush. Eyes PERRL, EOMs intact bilaterally, conjunctivae normal and no scleral icterus Eyes Narrative: No visual field cuts. Neck supple and no carotid bruits Chest Chest: symmetrical chest wall rise Resp normal respiratory effort and clear to auscultation bilaterally Resp Narrative: No cough with deep breathing. Effort and Inspection: Negative for tachypneic Cardio regular rate, regular rhythm, no rub, no gallops and peripheral pulses 2+ throughout Cardio Narrative: no ectopy GI normal to inspection, nondistended, normoactive bowel sounds, soft to palpation and non-tender GI Narrative: No guarding with palpation Back/Spine no CVA tenderness Extremity no calf tenderness General Extremity: Negative for edema Skin no jaundice and no mottling Skin Narrative: Sutures were removed on rehab and the incision is intact with no dehiscence. There is no redness and no pain with palpation. Swelling has mostly resolved. General Skin Exam: no breakdown Rashes: no rashes Wound Narrative: Neuro moves all extremities and no sensory deficits noted Neuro Narrative: NO change. Speech is slurred but, she is at baseline. Psych affect normal Psych Narrative: She is pleasant and appropriate. No signs of depression or anxiety. Appearance: appropriate Attitude: No agitated Activity / Motor Behavior: Negative for restless Mood & Affect: Negative for depressed or anxious Weight / BMI Weight Weight: 169 lb 8.568 oz Body Mass Index (BMI) 26.5 ABG / Lab / Microbiology Data 05/17/24 09:13 05/17/24 09:13 Microbiology: Microbiology 05/17/24 08:00 Urine Catheter - Catheter Urine Culture - Final Escherichia coli 05/17/24 08:00 Urine, Catheterized Urine Culture - Final Escherichia coli 05/03/24 15:10 Urine Catheter - Catheter Urine Culture - Final Escherichia coli D/C Instructions Discharge Diet: - (2000 calorie cabr consistent diet. ) Weight Bearing Status: Full weight bearing Call your doctor if your incision/area has: Increased Pain/ Swelling, Increased Redness and Foul Smelling Discharge Call your doctor if you observe: Fever of 101 or Higher, Inability to urinate, Shortness of breath, Dizziness, Fainting spells, Chest pain, Increased palpitations (irregular heartbeat), Calf discomfort, Uncontrolled pain and - (seizure) Suture Line Care: Avoid Pulling/Pushing and Avoid Pinching/Bending Cleanse incision/area with: Soap & Water and - (no dressing needed) Pending Tests Upon Discharge: none When: appts have been made for you to follow up with Dr. Alamo and others. They are listed later in this document. Meaningful Use Info Meaningful Use Meaningful Use Diagnoses (Choose all that apply): None applicable Ischemic Stroke Statin Dosing Therapy Reference: STATIN DOSE THERAPY REFERENCE: * Patients > 75 years receive moderate or high dose statin therapy. * Patients 75 years or YOUNGER should receive HIGH intensity statin dose unless contraindicated. You will be required to document reason for non-treatment if statin daily dose does not meet guidelines. HIGH DOSE STATIN THERAPY DAILY Atorvastatin > than or = to 40 mg Rosuvastatin > than or = to 20 mg Amlodipine + Atorvastatin > than or = to 2.5/40 mg Ezetimibe + Simvastatin 10/80 mg Simvastatin 80mg Discharge Plan Admission Admit Date/Time: 05/03/24 14:05 Primary Reason for Your Visit: Debility secondary to craniotomy for excision recurrent meningioma Attending Provider: Zoey Feng Primary Care Provider: Zoë Kaplan NP Instructions Additional Instructions / Restrictions: 1. You had a urinary tract infection when you arrived on rehab and were treated with appropriate antibiotics. Unfortunately just prior to discharge you developed another urinary tract infection. You have been on steroids to decrease the swelling of the brain post-op. Steroids suppress your immune system. Make sure to wipe from front to back when wiping your backside after a BM. If you are wearing a pad for urine leakage change the pad at least every 3 hours and also change if it gets wet. Go to the toilet and try to urinate at least every 3 hours while awake. Take ALL of the antibiotics prescribed to you. Constipation can lead to urine retention in women and this increases the risk for a urinary tract infection. You have had a problem with constipation for a long time. You have been taking 2 stool softeners while on rehab. You should continue taking both the Senna and the MiraLAX when you get home. They are both twice a day. IF you continue to have constipation while you are on both medications your PCP may want to refer you to a hide dyer OR you could try using a medication called Azs.......you can discuss this with your PCP. 2. The blood sugars were elevated when you came to rehab and you were taking insulin. It is the steroids that made the blood sugars go up. The steroids are being tapered off and the blood sugars are good now with no insulin. 3. Your blood pressures have been low on rehab and your heart rate dropped into the 40's........normal is 60-100. I had to decrease the dose of the Propranolol to 15 mg twice a day. The heart rate improved with the decrease in the dose but, your blood pressure kept dropping. Propranolol treats the tremors BUT, it also decreases heart rate and blood pressure. We had to hold some doses of the propranolol due to low blood pressure and the tremors got worse. If the blood pressure stays low or the heart rate decreases again you may need to stop the Propranolol and try a new drug to control the tremors. If this happens you should discuss this with neurology. 4. You had a seizure after the operation and you were started on an anti- epileptic drug called Keppra. You have not had any seizures while on rehab. You are going to follow up in the epilepsy clinic at [facility]. After the swelling in the brain has resolved you MAY not need Keppra anymore. Continue taking this medication twice a day until the epilepsy doctor tells you otherwise. 5. It was a pleasure meeting you Reshma. You brightened everyone's day with your smile and good attitude. If you or your family have any questions after you leave rehab please do not hesitate to call me. OFFICE: [phone] CELL: [phone] NURSES STATION ON REHAB: [phone] If you have not had a BM in 3 days take a laxative on the 4th day. I think you are getting urinary tract infections (UTI) due to constipation. It is a frequent cause of UTI in women. You are now taking 2 stool softeners, MiraLAX and Senna. You need to continue taking both of these medications. Also, make sure to drink enough water daily to keep the urine a pale yellow. Discharge Orders/Prescriptions Prescriptions: New sennosides-docusate sodium [Stimulant Laxative Plus] 8.6-50 mg Tablet 2 tab PO BID Qty: 120 0RF propranolol 10 mg Tablet 15 mg PO BID Qty: 90 0RF Rx Instructions: 1 and a half tablets twice a day cefadroxil 500 mg capsule 500 mg PO BID Qty: 12 0RF Rx Instructions: 1 tab twice a day until gone. dexamethasone 1 mg tablet 1 mg PO DAILY Qty: 4 0RF Rx Instructions: take one tab daily until gone. Continued Centrum Women 18-400 mg-mcg tablet 1 tab PO DAILY Fish Oil 900 mg-360 mg- 455 mg-1,000 mg capsule 1 cap PO DAILY gabapentin 100 mg capsule 100 mg PO BID simvastatin 40 mg tablet 40 mg PO QHS ascorbic acid (vitamin C) [Vitamin C] 500 mg tablet 1 g PO DAILY cholecalciferol (vitamin D3) 25 mcg (1,000 unit) capsule 25 mcg PO DAILY calcium carbonate 500 mg calcium (1,250 mg) tablet 500 mg PO DAILY fluorometholone 0.1 % drops,suspension 1 drp LEFT EYE BID pantoprazole [Protonix] 40 mg tablet,delayed release (DR/EC) 40 mg PO DAILY Qty: 14 0RF levetiracetam [Keppra] 750 mg tablet 1,500 mg PO BID Qty: 120 0RF Changed acetaminophen 500 mg tablet 1,000 mg PO Q8 PRN (Reason: pain/fever) Qty: 1 0RF Discontinued bacitracin zinc-polymyxin B 500-10,000 unit/gram ointment 1 applic topical Q12H heparin (porcine) 5,000 unit/mL solution 5,000 unit subcut Q8H hydralazine 10 mg tablet 10 mg PO Q4H PRN (Reason: hypertension) Rx Instructions: until target blood pressure attained ondansetron 4 mg tablet,disintegrating 4 mg PO Q6H PRN (Reason: nausea and vomiting) oxycodone 5 mg tablet 5 mg PO Q4H PRN (Reason: pain) lisinopril 10 mg tablet 10 mg PO DAILY nystatin 100,000 unit/gram powder 1 applic topical BID propranolol 20 mg tablet 20 mg PO BID Referrals / Follow Up: Genny Alamo-Neurology [Other] - 05/20/24 2:00 pm Nicola Lee [Other] - 08/01/24 11:00 am (at the [facility] ) Moises Cline [Other] - 07/04/24 11:00 am (f/u for seizure medication ) Zoë Kaplan [employer], [facility] [employer] [Primary Care Provider] - 05/27/24 9:00 am Disposition Disposition (needs filled in before D/C Order can be placed): Home Health Service Charges/Coding Visit Charges Inpatient E&M: 11789 Disch Hosp >30min
[2024-05-20] MEDS: Ceftriaxone 1 GM/50 ML BAG IV (09:22)
[2024-05-20] MEDS: 0.9% Saline Lock 10 ML Syringe IV (09:22)
[2024-05-20 11:13] VITALS: BP 141/71; PULSE 71; RESP 17; TEMP 36.2; O2SAT 97
--- NOTE | 2024-05-20 11:15 | NURSING ---
discharged home with family. discharged instructions, medications and appointments reviewed with pt. denies question or concerns
== END 2024-05-20 11:16 | disposition home health service (06) | DRG 949 ==
PROVIDERS: Admitting Provider Internal Medicine; PCP Registered Nurse; Referring Provider Internal Medicine; Visit Provider Internal Medicine
DX: Z48.811 Encounter for surgical aftercare following surgery on the nervous system (principal); D62 Acute posthemorrhagic anemia; N30.00 Acute cystitis without hematuria; R13.12 Dysphagia, oropharyngeal phase; E11.65 Type 2 diabetes mellitus with hyperglycemia; D32.9 Benign neoplasm of meninges, unspecified; B96.20 Unspecified Escherichia coli [E. coli] as the cause of diseases classified elsewhere; I10 Essential (primary) hypertension; E78.5 Hyperlipidemia, unspecified; K59.04 Chronic idiopathic constipation; Z79.4 Long term (current) use of insulin; G25.0 Essential tremor; G47.33 Obstructive sleep apnea (adult) (pediatric); I95.9 Hypotension, unspecified; K21.9 Gastro-esophageal reflux disease without esophagitis; F09 Unspecified mental disorder due to known physiological condition; T83.511D Infection and inflammatory reaction due to indwelling urethral catheter, subsequent encounter; Z79.899 Other long term (current) drug therapy; Z79.01 Long term (current) use of anticoagulants; R47.1 Dysarthria and anarthria
CPT/HCPCS: 36415; 80048; 80053; 81001; 82533; 82962; 83735; 84100; 84443; 85014; 85018; 85025; 85027; 87077; 87086; 87088; 87186; 92523; 92526; 92610; 94762; 97110; 97112; 97116; 97129; 97130; 97162; 97165; 97530; 97535; 97802; A4216; J0834; J3490

== ENCOUNTER 2025-04-04 10:12 | Inpatient (IN) | payer MEDICARE, SELFPAY ==
[2025-04-04 10:13] VITALS: BP 123/76; PULSE 81; RESP 18; TEMP 37; O2SAT 100
[2025-04-04 11:21] VITALS: BMI 32.5
--- NOTE | 2025-04-04 12:25 | EKG12_ITS ---
Test Reason : WEAKNES Blood Pressure : */* mmHG Vent. Rate : 72 BPM Atrial Rate : 72 BPM P-R Int : 240 ms QRS Dur : 94 ms QT Int : 412 ms P-R-T Axes : 38 -22 4 degrees QTcB Int : 451 ms Sinus rhythm with 1st degree A-V block Otherwise normal ECG Confirmed by MEREDITH ESCOBEDO ([id number]), online editor CHASIDY FORD ([id number]) on 04/07/2025 9:11:07 AM Referred By: Confirmed By: MEREDITH ESCOBEDO
[2025-04-04] MEDS: 0.9% Normal Saline (500mL Bag) 500 ML 1000 ML IV (12:54)
[2025-04-04 12:57] LABS: Hematocrit 36.6 % (37-47); Hemoglobin 12.4 g/dL (12.0-15.0); Immature Granulocytes Count 0.020 X10^3/uL (0.0-0.0); Mean Corp Hgb Conc 33.9 g/dL (32-36); Mean Corpuscular Volume 90.4 fL (81-99); Mean Platelet Vol. 9.2 fl (6.2-12.0); NRBC Flagged by Analyzer 0 % (0-5); Platelet Count 173 K/mm3 (150-450); RBC Distribution Width CV 13.6 % (11.6-14.6); RBC Distribution Width SD 45.4 fl (35.1-43.9); Red Blood Count 4.05 M/mm3 (4.2-5.4); White Blood Count 8.0 K/mm3 (4.4-11.0)
--- NOTE | 2025-04-04 13:03 | CT_ITS ---
PROCEDURE: BRAIN/HEAD WITHOUT CONTRAST 04/04/2025 REASON FOR EXAM: WEKANESS, HX BRAIN TUMOR, FALLS TECHNIQUE: Procedure Code: CTBR Modality: CT Procedure: BRAIN/HEAD WITHOUT CONTRAST Coronal and Sagittal reconstruction series were provided. One or more dose reduction techniques were used (e.g., Automated exposure control, adjustment of the mA and/or kV according to patient size, use of iterative reconstruction technique. RADIATION DOSE SUMMARY: CTDlvol: 47 mGy DLP: 943 mGycm COMPARISON: None. FINDINGS: Cerebrum: Surgical changes left frontal lobe with leukoencephalopathy. Otherwise normal cerebral volume. Negative for mass the frontal, parietal, temporal and occipital lobes otherwise negative. 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 Otherwise mild periventricular white matter changes. Cerebellum: Negative. Negative for mass. Negative for acute infarction. CSF pathways and ventricles: Negative. Negative for ventricular dilatation or obstruction. Basal ganglia and thalami: Negative. No acute infarctions. Brainstem: Midbrain, patricia and medulla otherwisenegative. Calvarium: Negative. Left-sided craniotomy. Orbital structures: Globes negative. Extraocular muscles negative. Paranasal sinuses: No air fluid levels. Remainder of the sinuses negative. Vascular structures: Moderate calcifications of the distal intracranial internal carotid arteries. Soft tissues: Negative. Other: : Negative for acute intracranial hemorrhage. Negative for acute infarction. Remainder of exam negative. CT/Brain/Head without Contrast IMPRESSION: Previous left craniotomy with underlying surgical changes No definitive residual recurrent mass. Negative for acute intracranial pathology. Reading Location: [id number]
--- NOTE | 2025-04-04 13:05 | RAD_ITS ---
PROCEDURE: CHEST 1 VIEW (PORTABLE) 04/04/2025 REASON FOR EXAM: WEAKNESS TECHNIQUE: Frontal view of the chest. COMPARISON: None. FINDINGS: LUNGS AND PLEURA: No focal airspace consolidation. No pleural effusion or pneumothorax. HEART AND MEDIASTINUM: The cardiac silhouette is enlarged. The mediastinal contour is normal. AORTA: Mildly calcified aortic arch. BONES: No acute osseous abnormality. RAD/Chest 1 View (Portable) IMPRESSION: No Acute Findings. Reading Location: [id number]
[2025-04-04 13:29] LABS: Anion Gap 11 (5-15); BUN 18 mg/dL (4-19); BUN/Creat Ratio 18.5 RATIO (10-20); Calcium,Total 9.6 mg/dL (7.6-11.0); Carbon Dioxide 26.7 mmol/L (21.0-32.0); Chloride 102 mmol/L (98-108); Estimated Creatinine Clearance 44.20 ml/min (50-250); Glucose 96 mg/dL (70-99); Potassium 4.0 mmol/L (3.3-5.1)
[2025-04-04 14:12] VITALS: BP 164/80; PULSE 86; RESP 18; O2SAT 95
[2025-04-04 14:34] LABS: Mucous, Urine 0 SEEN /hpf (<or=2+); Red Blood Cells-Urine 0 SEEN /hpf (0-5); Squamous Epithelial Cells - UA 0 SEEN /hpf (5-10)
[2025-04-04 14:37] LABS: Color, Urine Yellow (Yellow); Glucose, Dipstick Normal (Normal); Ketone-Dipstick Negative (Negative); Leukocyte Esterase-Dipstick Negative /ul (Negative); Nitrite-Dipstick Negative (Negative); Occult Blood-Urine Negative /ul (Negative); Protein-Dipstick Negative (Negative); Specific Gravity, Urine 1.010 (1.002-1.030); Urine Bilirubin Dipstick Negative (Negative)
[2025-04-04 15:24] VITALS: BP 157/96; PULSE 83; RESP 20; TEMP 36.8; O2SAT 100
--- NOTE | 2025-04-04 15:45 | EDS_ITS ---
HPI History of Present Illness Chief Complaint: Weakness Informant: spouse/S.O. and family Limited: dementia Narrative Narrative: Patient is an 84-year-old female with history of seizures, meningioma, essential tremor, GERD and prior craniotomy for mass of the right frontal area presenting for increased weakness. She recently had treatments with radiation oncology about 6 weeks ago and finished 2 weeks ago. Has been states she is actually doing okay lately however she has had increased weakness, confusions and fall over the past few days. She has not hit her head in the falls been more slipping off the bed and falling to the ground. Most recent fall was last night. She is not drinking well but is eating okay. Denies any dysuria. She has some chronic issues with her bowel movements but no acute change. No fever or chills reported. is concerned because 2 of them at home and he does not feel that he can adequately take care of her anymore. Is hoping that she would be accepted to some type of rehab as she is been in rehab before and did much better afterwards. No other complaints or concerns at this time [facility] Medical History (Updated 04/04/25 @ 15:[address] Shanell Wolf, DO) Spastic neurogenic bladder Seizures Brain tumor, glioma Coccygeal pain, chronic Oropharyngeal dysphagia Dysarthria Constipation Essential tremor GERD (gastroesophageal reflux disease) Benign positional vertigo Subdural hematoma Obstructive sleep apnea Meningioma Hyperlipidemia HTN (hypertension) Diabetes mellitus, type 2 Home Medications ?Medication ?Instructions ?Recorded ?Last Taken ?Type cholecalciferol (vitamin D3) 25 25 mcg PO DAILY supple ment 05/03/24 Unknown History mcg (1,000 unit) capsule gabapentin 100 mg capsule 100 mg PO BID nerve pain 05/03/24 History multivitamin-ferrous 1 tab PO DAILY supplement Unknown History fumarate-folic acid 18 mg-400 mcg tablet (Centrum Women) acetaminophen 500 mg tablet 1,000 mg (2 x 500 mg) PO Q 8 PRN 05/17/24 Unknown Rx pain/fever #1 TAB levetiracetam 750 mg tablet 1,500 mg (2 x 750 mg) PO B ID 05/17/24 Unknown Rx (Keppra) seizure #120 tabs solifenacin 10 mg tablet (Vesicare) 10 mg PO QDAY #90 tabs 02/10/25 Unknown Rx rosuvastatin 10 mg tablet 10 mg PO QDAY 02/11/25 Unkno wn History Allergy/AdvReac Type Severity Reaction Status Date / Time No Known Allergies Allergy Verified 04/04/25 10:16 Family History Sister Cancer Leukemia. Brother Cancer Esophageal cancer Surgical History (Updated 04/04/25 @ 15:[address] Shanell Wolf, DO) History of carpal tunnel surgery History of rotator cuff surgery History of repair of congenital cleft palate History of total knee arthroplasty Status post craniotomy Social History household members: significant other housing: other details: 1 story house with 3 steps to enter house thru the garage number of children: 4 Smoking Status: Never smoker alcohol intake: never substance use type: does not use ROS ROS ED Review of Systems ROS Unobtainable: due to mental status Constitutional Constitutional ED: Denies chills or fever(s) Cardiovascular Cardiovascular: Denies chest pain Respiratory/Chest Respiratory/Chest: Denies dyspnea Gastrointestinal Gastrointestinal: Denies abdominal pain or vomiting Neurologic Neurologic: Reports weakness; Denies headache(s) Hematologic/Lymphatic Hematologic/Lymphatic: Denies easy bleeding or easy bruising EXAM Physical Exam Const Vital Signs: 04/04/25 10:13 04/04/25 11:20 04/04/25 14:12 Temperature 98.6 F Temperature Source Oral Pulse Rate 81 86 Respiratory Rate 18 18 Respiratory Pattern Normal Blood Pressure 123/76 H 164/80 H Blood Pressure Mean 91 108 Pulse Ox 100 95 Oxygen Delivery Method Room Air Room Air 04/04/25 15:24 Temperature 98.2 F Temperature Source Pulse Rate 83 Respiratory Rate 20 H Respiratory Pattern Blood Pressure 157/96 H Blood Pressure Mean 116 Pulse Ox 100 Oxygen Delivery Method Positive well nourished and well developed General Appearance ED: well developed and NAD HEENT Reports dry mucous membranes Mouth ED: Yes dry mucous membranes Mouth: dry mucous membranes Eyes Eyes Narrative: Slight exophthalmos of the left eye Neck supple General: Negative for tenderness Chest Wall inspection of chest normal and palpation of chest normal Resp normal respiratory effort and clear to auscultation bilaterally Cardio regular rate and regular rhythm GI normal to inspection, nondistended, normoactive bowel sounds and non-tender Extremity normal to inspection Neuro Neuro Narrative: Resting tremor present. No drift of the extremities. Normal sensation throughout. Patient is generally weak but seems to be at her baseline. Sensorium / Orientation: alert and orientation impaired Psych mental status grossly normal MDM MDM MDM Narrative Medical decision making narrative: Patient Biba for generalized weakness increased falls. Does have a history of brain tumor (glioma) and radiation therapy to the brain as well as dementia. Differential includes deconditioning, worsening dementia, intracranial hemorrhage, GADIEL, symptomatic anemia, infection and UTI. Workup including CBC, BMP and urinalysis will CT of the brain is obtained. Also obtain EKG . Workup is largely unremarkable for any acute process. Patient is given IV fluids as clinically she appears dehydrated. Due to the patient's debility and family unable to properly care for her ( is elderly and had back surgery to cannot really pick her up or assist with her ADLs) will be admitted for PT OT evaluation and possible placement. Family and patient are agreeable this plan of care. Case discussed with hospitalist, Dr. Medrano Lab Data Attestation: I reviewed the patient's lab results. Labs: Laboratory Results - last 24 hr 04/04/25 04/04/25 12:48 14:20 WBC 8.0 RBC 4.05 L Hgb 12.4 Hct 36.6 L MCV 90.4 MCH 30.6 MCHC 33.9 RDW Std Deviation 45.4 H RDW Coeff of Tung 13.6 Plt Count 173 MPV 9.2 Immature Gran % (Auto) 0.200 Neut % (Auto) 79.7 H Lymph % (Auto) 10.0 L [place] % (Auto) 7.0 Eos % (Auto) 2.6 Baso % (Auto) 0.5 Absolute Neuts (auto) 6.4 Absolute Lymphs (auto) 0.80 L Nucleated RBC % 0 Sodium 140 Potassium 4.0 Chloride 102 Carbon Dioxide 26.7 Anion Gap 11 BUN 18 Creatinine 0.97 Estim Creat Clear Calc 44.20 L Est GFR (MDRD) Non-Af 57 L BUN/Creatinine Ratio 18.5 Glucose 96 Calcium 9.6 Urine Color Yellow Urine Clarity Clear Urine pH 7.0 Ur Specific [place] 1.010 Urine Protein Negative Urine Glucose (UA) Normal Urine Ketones Negative Urine Occult Blood Negative Urine Nitrite Negative Urine Bilirubin Negative Urine Urobilinogen Normal Ur Leukocyte Esterase Negative Urine RBC 0 SEEN Urine WBC 0 SEEN Ur Squamous Epith Cells 0 SEEN Urine Bacteria 0 SEEN Urine Mucus 0 SEEN Radiography Diagnostic Testing: Clinical Impression(s) from Imaging Studies Brain CT 04/04/25 13:03 IMPRESSION: Previous left craniotomy with underlying surgical changes No definitive residual recurrent mass. Negative for acute intracranial pathology. Reading Location: [facility] Chest X-Ray 04/04/25 13:05 IMPRESSION: No Acute Findings. Reading Location: [facility] Rhythm Strip Rhythm Strip: Sinus Rhythm Rate: 72 Ectopy: None EKG Initial EKG: Attestation: I personally reviewed and interpreted this EKG as follows: Interpretation: Sinus Rhythm Comments: Normal sinus rhythm at a rate of 72 beats per minutes with first-degree AV block NJ interval 240 Normal axis Normal QRS/QTc intervals Normal ST segment Management Discussion w/another healthcare provider: Hospitalist Discharge Plan Dx/Rx/DC Orders Clinical Impression: Status post craniotomy, Debility, Cognitive dysfunction Disposition Disposition: Acute Care Hospital [facility]
--- NOTE | 2025-04-04 15:47 | PCM.HP.STD ---
HPI - General General Date of Admission: 04/04/25 Date of Service: 04/04/25 Chief Complaint: Generalized weakness HPI Narrative RESHMA EVANS, is a 84-year-old female with a history of brain tumor (left sphenoid wing meningioma) status postcraniotomy and subsequent radiation that she completed 3 weeks ago complicated by postoperative seizures but she has been stable on Keppra presented to [facility] ED 04/04/2025 for generalized weakness and falls. In the ED patient afebrile, pulse ox 100% with heart rate of 83 and blood pressure 157/96. White count within normal limits, hemoglobin 12.4, BUN 18 and creatinine 0.97, glucose 96 and UA not suggestive of UTI. CT head and chest x-ray no acute process. Given patient's generalized weakness and falls hospitalist contacted for admission for failure to thrive and placement. Patient evaluated family members at bedside. Patient has some swelling around her left eye which reportedly has been there due to the previous brain tumor that was removed and she completed radiation 3 weeks ago as there was still some residual tumor that was unable to be resected. Did have some complications with craniotomy of seizure but has been stable on Keppra since that time. She has tremors especially in her arms but these are not new, reports no focal weakness or focal sensory changes and that her weakness is just generalized, has had poor p.o. intake especially with poor fluid intake and appears dehydrated. Denies any diarrhea or changes in urination, no cough, fevers, headache, sudden changes in vision outside of her baseline since the tumor. No other new acute complaints [facility] Medical History (Updated 04/04/25 @ 15:[address] Shanell Wolf, DO) Benign positional vertigo Brain tumor, glioma Coccygeal pain, chronic Constipation Diabetes mellitus, type 2 Dysarthria Essential tremor GERD (gastroesophageal reflux disease) HTN (hypertension) Hyperlipidemia Meningioma Obstructive sleep apnea Oropharyngeal dysphagia Seizures Spastic neurogenic bladder Subdural hematoma Home Medications ?Medication ?Instructions ?Recorded ?Last Taken ?Type cholecalciferol (vitamin D3) 25 25 mcg PO DAILY supplement 05/03/24 Unknown History mcg (1,000 unit) capsule gabapentin 100 mg capsule 100 mg PO BID nerve pain 05/03/24 05/03/24 History multivitamin-ferrous 1 tab PO DAILY supplement 05/03/24 Unknown History fumarate-folic acid 18 mg-400 mcg tablet (Centrum Women) acetaminophen 500 mg tablet 1,000 mg (2 x 500 mg) PO Q8 PRN 05/17/24 Unknown Rx pain/fever #1 TAB levetiracetam 750 mg tablet 1,500 mg (2 x 750 mg) PO BID 05/17/24 Unknown Rx (Keppra) seizure #120 tabs solifenacin 10 mg tablet (Vesicare) 10 mg PO QDAY #90 tabs 02/10/25 Unknown Rx rosuvastatin 10 mg tablet 10 mg PO QDAY 02/11/25 Unknown History Allergy/AdvReac Type Severity Reaction Status Date / Time No Known Allergies Allergy Verified 04/04/25 10:16 Family History Sister Cancer Leukemia. Brother Cancer Esophageal cancer Surgical History (Updated 04/04/25 @ 15:[address] Shanell Wolf, DO) History of carpal tunnel surgery History of repair of congenital cleft palate History of rotator cuff surgery History of total knee arthroplasty Status post craniotomy Social History household members: significant other housing: other details: 1 story house with 3 steps to enter house thru the garage number of children: 4 Smoking Status: Never smoker alcohol intake: never substance use type: does not use ROS ROS Narrative General: Denies fever/chills HENT: Denies headache, denies stuffy nose, denies sore throat EYES: Has some decreased vision in the left eye which reportedly is not new Resp: Denies cough, denies shortness of breath Cardiac: Denies chest pain GI: Denies abdominal pain, denies changes in bowel, denies nausea/vomiting : Denies changes in urination Extremity: Denies swelling MSK: Generalized weakness, no focal symptoms Neuro: Denies any numbness/tingling or other focal neurological symptoms Heme: Denies any bleeding or bruising Skin: Denies rashes Psychiatric: No complaints voiced Vital Signs Vital Signs Vital Signs: 04/04/25 10:13 04/04/25 11:20 04/04/25 14:12 Temperature 98.6 F Temperature Source Oral Pulse Rate 81 86 Respiratory Rate 18 18 Respiratory Pattern Normal Blood Pressure 123/76 H 164/80 H Blood Pressure Mean 91 108 Pulse Ox 100 95 Oxygen Delivery Method Room Air Room Air 04/04/25 15:24 Temperature 98.2 F Temperature Source Pulse Rate 83 Respiratory Rate 20 H Respiratory Pattern Blood Pressure 157/96 H Blood Pressure Mean 116 Pulse Ox 100 Oxygen Delivery Method Weight Weight: 86.1 kg Body Mass Index (BMI) 32.5 Physical Exam Narrative General: Alert, overall answers questions appropriately but sometimes requires multiple prompts HEENT: Patient with some swelling around her left eye which reportedly is her baseline since her brain tumor eyes: Is able to open left eye but with some difficulty, extraocular movements grossly intact Neck: Supple Respiratory: Clear to auscultation bilaterally, normal respiratory effort Cardiovascular: Regular rate and rhythm GI: Soft, nontender, nondistended Extremities: No significant pitting edema Musculoskeletal: Moving all extremities Neuro: No overt focal neurological deficits, moving all limbs symmetrically, good strength in upper extremities with handgrip, holds both legs off bed without drift Skin: No rashes appreciated Psych: Cooperative Results Lab / Micro Data 04/04/25 12:48 04/04/25 12:48 Labs: Laboratory Results - last 24 hr 04/04/25 12:48: WBC 8.0, RBC 4.05 L, Hgb 12.4, Hct 36.6 L, MCV 90.4, MCH 30.6, MCHC 33.9, RDW Std Deviation 45.4 H, RDW Coeff of Tung 13.6, Plt Count 173, MPV 9.2, Immature Gran % (Auto) 0.200, Neut % (Auto) 79.7 H, Lymph % (Auto) 10.0 L, [place] % (Auto) 7.0, Eos % (Auto) 2.6, Baso % (Auto) 0.5, Absolute Neuts (auto) 6.4, Absolute Lymphs (auto) 0.80 L, Nucleated RBC % 0, Sodium 140, Potassium 4.0, Chloride 102, Carbon Dioxide 26.7, Anion Gap 11, BUN 18, Creatinine 0.97, Estim Creat Clear Calc 44.20 L, Est GFR (MDRD) Non-Af 57 L, BUN/Creatinine Ratio 18.5, Glucose 96, Calcium 9.6 04/04/25 14:20: Urine Color Yellow, Urine Clarity Clear, Urine pH 7.0, Ur Specific [place] 1.010, Urine Protein Negative, Urine Glucose (UA) Normal, Urine Ketones Negative, Urine Occult Blood Negative, Urine Nitrite Negative, Urine Bilirubin Negative, Urine Urobilinogen Normal, Ur Leukocyte Esterase Negative, Urine RBC 0 SEEN, Urine WBC 0 SEEN, Ur Squamous Epith Cells 0 SEEN, Urine Bacteria 0 SEEN, Urine Mucus 0 SEEN Imaging Radiology Impression Brain CT 04/04/25 13:03 IMPRESSION: Previous left craniotomy with underlying surgical changes No definitive residual recurrent mass. Negative for acute intracranial pathology. Reading Location: [id number] Chest X-Ray 04/04/25 13:05 IMPRESSION: No Acute Findings. Reading Location: [id number] Assessment & Plan Assessment/Plan (1) Generalized weakness: PLAN: Plan # Generalized weakness -CT head no acute process -Chest x-ray no evidence of pneumonia and UA does not appear infectious -Patient primarily appears dry and dehydrated and does report decreased p.o. intake -IV fluids -Will check B12, TSH, vitamin D, magnesium, phos -PT/OT -Case management consult as patient would likely need placement which is what she and family are hoping for # History of brain tumor -04/26/2024 patient had craniotomy for left sphenoid wing meningioma at [facility] By Dr. Alamo - Because of some residual tumor it was recommended by Dr. Mckeon with radiation oncology and this is listed as radiation for glioma -Patient completed therapy 3 weeks ago with radiation -Again patient reports generalized weakness and falls with no focal complaints, no headache, no changes in her baseline vision and CT with no acute process so do not think this is directly related # Postoperative seizures -Patient had perioperative seizures with her craniotomy, has been stable on Keppra -Continue Keppra #DVT ppx: SCDs Trinidad Magaña MD Charges/Coding Visit Charges Inpatient E&M: 57365 Init Hosp L2
--- OUTSIDE RECORDS SUMMARY | 2025-04-04 16:40 | XMS RPT_ITS | CCD ---
Author Organization [facility] Care Team Providers Care Treating Machine Operator Name Role Phone Zoë Kaplan Primary Care Provider Brandon IBARRA, Rachid Rollins Primary Care Provider Brandon IBARRA, Rachid Rollins Primary Care Provider Eusebio SUGGS - NELLY, Zoë Miller Primary Care Provider Rachid Neville MD Primary Care Provider Zoë Kaplan CNP Primary Care Provider [phone] Zoë Kaplan CNP Primary Care Provider Sementi, Zoey Kraft Attending Unavaila ble Eusebio TECHNICAL SALES ADVISOR, [facility] Unavailable Sementi, Zoey Kraft Admitting Unavaila ble Sementi, Zoey Kraft Referring Unavaila ble Sementi, Zoey Kraft Consulting Unavaila ble Sementi, Zoey Kraft Attending Unavaila ble Sementi, Zoey Kraft Referring Unavaila ble Eusebio TECHNICAL SALES ADVISOR, Zoë Primary Care Unavailable Sementi, Zoey Kraft Admitting Unavaila ble Mike IBARRA, Daanthony Unavailable Eusebio TECHNICAL SALES ADVISOR-C, Zoë Primary Care Provider Eusebio TECHNICAL SALES ADVISOR-C, Zoë Referring Provider Juve TECHNICAL SALES ADVISOR-C, Michelle Attending Provider Eusebio SUGGS - Zoë VILLEGAS Unavailable PROVIDER, UNKNOWN Referring Unavailable ZOË KAPLAN Primary Care Unavailable PROVIDER, UNKNOWN Referring Unavailable ZOË KAPLAN Primary Care Unavailable NEYMAR JERONIMO Attending Unavailable ZOË KAPLAN Primary Care Unavailable GERALD CLINE [facility]ending [facility] Unavailable KRIVOSHEYA, NEYMAR Referring Unavailable [facility] Unavailable [facility] Unavailable [facility] Referring Unavailable KRIVOSHEYA, NEYMAR Attending Unavailable [facility] Unavailable [facility] Referring Unavailable KRIVOSHEYA, NEYMAR Referring Unavailable [facility] Unavailable TRACY BARCENAS Attending Unavailabl e [facility] Unavailable [facility] Referring Unavailable KRIVOSHEYA, NEYMAR Referring Unavailable [facility] Unavailable KRIVOSHEYA, NEYMAR Referring Unavailable KRIVGIOVANAEYA, NEYMAR Attending Unavailable [facility] Unavailable KRIVOSHEYA, NEYMAR Attending Unavailable KRIVOSHEYA, NEYMAR Admitting Unavailable KRIVOSHEYA, NEYMAR Referring Unavailable TRACY BARCENAS Consulting Unavailabl e [facility] Unavailable KRIVOSHEYA, NEYMAR Referring Unavailable [facility] Unavailable GERALD CLINE Attending Unavailable [facility] Unavailable KRIVOSHEYA, NEYMAR Referring Unavailable KRSAMRAEYA, NEYMAR Attending Unavailable [facility] Unavailable KRIVOSHEYA, NEYMAR Referring Unavailable [facility] Unavailable KRIVOSHEYA, NEYMAR Referring Unavailable [facility] Unavailable KRIVOSHEYA, NEYMAR Referring Unavailable [facility] Unavailable KRIVGIOVANAEYA, NEYMAR Attending Unavailable [facility] Unavailable KRIVOSHEYA, NEYMAR Referring Unavailable [facility] Unavailable MIKE, DAESUNG Referring Unavailable [facility] Unavailable MIKE, DAESUNG Referring Unavailable [facility] Unavailable MIKE, DAESUNG Referring Unavailable [facility] Unavailable MIKE, DAESUNG Referring Unavailable [facility] Unavailable KRIVOSHEYA, NEYMAR Admitting Unavailable KRIVGIOVANAEYA, NEYMAR Attending Unavailable [facility] Unavailable KRIVOSHEYA, NEYMAR Referring Unavailable MIKE, DAESUNG Referring Unavailable [facility] Unavailable MENDEL MAXWELL Attending Unavailable [facility] Unavailable KRIVOSHEYA, NEYMAR Referring Unavailable MIKE, DAESUNG Referring Unavailable [facility] Unavailable MIKE, DAESUNG Referring Unavailable [facility] Unavailable MIKE, DAESUNG Attending Unavailable MIKE, DAESUNG Referring Unavailable [facility] Unavailable MIKE, DAESUNG Attending Unavailable [facility] Unavailable MIKE, DAESUNG Referring Unavailable [facility] Unavailable MIKE, DAESUNG Referring Unavailable [facility] Unavailable MIKE, DAESUNG Referring Unavailable [facility] Unavailable MIKE, DAESUNG Referring Unavailable [facility] Unavailable MIKE, DAESUNG Referring Unavailable [facility] Unavailable MIKE, DAESUNG Referring Unavailable [facility] Unavailable [facility] Unavailable KRIVOSHEYA, NEYMAR Referring Unavailable KRIVOSHEYA, NEYMAR Referring Unavailable [facility] Unavailable KRIVOSHEYA, NEYMAR Referring Unavailable [facility] Unavailable KRIVOSHEYA, NEYMAR Referring Unavailable MENDEL MAXWELL Attending Unavailable [facility] Unavailable MIKE, DAESUNG Referring Unavailable [facility] Unavailable MIKE, DAESUNG Referring Unavailable [facility] Unavailable MIKE, DAESUNG Referring Unavailable [facility] Unavailable MIKE, DAESUNG Attending Unavailable [facility] Unavailable MIKE, DAESUNG Referring Unavailable [facility] Unavailable MIKE, DAESUNG Attending Unavailable [facility] Unavailable MIKE, DAESUNG Referring [facility]available [facility] Unavailable MIKE, DAESUNG Attending Unavailable MIKE, DAESUNG Referring Unavailable [facility] Unavailable MIKE, DAESUNG Attending Unavailable MIKE, DAESUNG Referring Unavailable [facility] Unavailable MIKE, DAESUNG Referring Unavailable [facility] Unavailable MICHELLE AN Referring Unavailable [facility] Unavailable MIKE, DAESUNG Attending Unavailable [facility] Unavailable MIKE, DAESUNG Referring Unavailable EUSEBIO, ZOË SERINA Primary Care Unavailable KRIVOSHEYA, NEYMAR Referring Unavailable MIKE, DAESUNG Attending Unavailable ZOË KAPLAN Primary Care Unavailable MIKE, DAESUNG Referring Unavailable EUSEBIO ZOËJanki LEVIN Primary Care Unavailable MIKE, DAPARVEZUNG Attending Unavailable ZOË KAPLAN Primary Care Unavailable MIKE, DAESUNG Referring Unavailable ZOË KAPLAN Primary Care Unavailable MIKE, DAESUNG Referring Unavailable EUSEBIO ZOË SERINA Primary Care Unavailable KRIVGIOVANAEYA, NEYMAR Referring Unavailable ZOË KAPLAN Primary Care Unavailable MIKE, DAESUNG Attending Unavailable MIKE, DAESUNG Referring Unavailable EUSEBIOZOË SERINA Primary Care Unavailable MIKE, DAESUNG Referring Unavailable EUSEBIO ZOË SERINA Primary Care Unavailable MIKE, DAESUNG Attending Unavailable ZOË KAPLAN Primary Care Unavailable MIKE, DAESUNG Referring Unavailable ZOË KAPLAN Primary Care Unavailable MIKE, DAESUNG Referring Unavailable EUSEBIOZAKJanki LEVIN Primary Care Unavailable ZOË KAPLAN Primary Care Unavailable MIKE, DAESUNG Referring Unavailable ZOË KAPLAN Primary Care Unavailable ZOË KAPLAN Primary Care Unavailable KRIVGIOVANAEYA, NEYMAR Referring Unavailable MIKE, DAESUNG Referring Unavailable ZOË KAPLAN Primary Care Unavailable BRANDON, RACHID Primary Care Unavailable ZOË KAPLAN Attending Unavailable BRANDON, RACHID Primary Care Unavailable BRANDON, RACHID Primary Care Unavailable BRANDON, RACHID Primary Care Unavailable LASHAUN SPIVEY Attending Unavailable ZOË KAPLAN Attending Unavailable BRANDON, RACHID Primary Care Unavailable ZOË KAPLAN Attending Unavailable BRANDON, RACHID Primary Care Unavailable BRANDON, RACHID Primary Care Unavailable ZOË KAPLAN Attending Unavailable Medications Current Medications Medication Drug Class(es) Dates Sig (Normalized) Sig (Original) acetaminophen 500 mg oral tablet (20 sources) Start: 05-03-2024 acetaminophen (Tylenol) 500 MG tablet 1,000 mg by Enteral route 4 times a day. 05/03/2024 Active Start: 05-03-2024 take 2 tablets by mo ut every six hours acetaminophen (TYLENOL) 500 mg tablet 2 tablets by ORAL/FEEDING TUBE route every 6 hours. 05/03/2024 Active Start: 05-03-2024 End: 05-17-2024 take 2 tablets by mouth every eight hours as needed for pain Acetaminophen 500 mg tablet Active 1000 mg PO EVERY 8 HOURS as needed for pain/fever 1 0 May 17, 2024 9:01am ascorbic acid 500 mg oral tablet (20 sources) Vitamin C Start: 05-03-2024 End: 11-04-2024 take 1 g by mouth once daily Ascorbic Acid (Vitamin C) (Vitamin C) 500 mg tablet Active 1 g PO DAILY May 03, 2024 12:00am supplement End: 04-24-2023 take 1 tablet by mouth once daily ascorbic acid (Vitam in C) 500 MG tablet Take 500 mg by mouth daily. Active biotin 1 mg chewable tablet (3 sources) Biotin 1000 MCG CHEW Take by mouth 0 Active calcium carbonate 1250 mg oral tablet (1 source) Start: 05-03-2024 take 1 tablet by mouth once daily Calcium Carbonate 500 mg calcium (1,250 mg) tablet Active 500 mg PO DAILY May 03, 2024 12:00am supplement cholecalciferol 0.025 mg oral capsule (20 sources) Vitamin D Start: 05-03-2024 take 1 capsule by mouth once daily Cholecalciferol (Vitamin D3) 25 mcg (1,000 unit) capsule Active 25 ug PO DAILY May 03, 2024 12:00am supplement End: 01-16-2025 take 1 tablet by mouth once daily Cholecalciferol, Vitamin D3, (VITAMIN D) 1,000 unit ORAL Cap Take one(1) tablet daily. 01/16/2025 Discontinued (Other) Cholecalciferol (VITAMIN D3) 50 MCG (2000 UT) CAPS Take by mouth 0 Active docosahexaenoic acid 120 mg / eicosapentaenoic acid 180 mg oral capsule (20 sources) omega-3 (Fish Oi l) 1000 MG capsule Take 3,000 mg by mouth. Active docusate sodium 50 mg / sennosides, mcfp 8.6 mg oral tablet (8 sources) Start: End: Sennosides-Docusate Sodium (Stimulant Laxative Plus) 8.6-50 mg Tablet Active 2 {tbl} PO TWICE A DAY 120 0 May 17, 2024 1:00am famotidine 20 mg oral tablet (5 sources) Histamine-2 Receptor Antagonist Start: End: take 1 tablet by mouth once daily famotidine (PEPCID) 20 mg tablet Take 1 tablet by mouth once daily for 6 days. Patient should start on December 07, 2024. 6 tablet 12/06/2024 10:27 AM EDT 12/07/2024 12/13/2024 Active fluorometholone 1 mg/ml ophthalmic suspension (20 sources) Corticosteroid Start: Fluorometholone 0.1 % drops,suspension Active 1 NMA LEFT EYE TWICE A DAY May 03, 2024 12:00am eye drop Start: 01-10-2024 take 1 drop(s) into the eye(s) twice daily fluorometholone (FML) 0.1 % ophthalmic suspension INSTILL 1 DROP INTO LEFT EYE TWICE DAILY 01/10/2024 Active Start: 01-10-2024 fluorometholon e (FML LIQUID FILM) 0.1 % ophthalmic suspension Use 1 Drop in the left eye two times a day. 01/10/2024 Active gabapentin 100 mg oral capsule (20 sources) Anti-epileptic Agent Start: 01-02-2024 End: 05-27-2025 gabapentin (Neurontin) 100 MG capsule TAKE 1 CAPSULE TWICE A DAY 180 capsule 3 01/21/2025 Active iv contrast (will be provided with radiology test) (20 sources) Start: 01-21-2025 End: 01-22-2025 inject 1 dose intravenously once iv contrast (will be provided with radiology test) MRI Brain Inject, intravenously, once for 1 dose.No IV access, insert saline lock prior to beginning of sedation, infusion, injection of imaging exam.Discontinue saline lock post exam. If Pt. has a central line or IVAD, may access for administration according to line specific nursing protocol.Once exam is complete flush line and de-access according to line specific nursing protocol in the MR contrast administration guidelines link 1 each 01/21/2025 01/22/2025 Active Start: 11-28-2024 inject 1 dose intravenously on ce iv contrast (will be provided with radiology test) Indications: Benign meningioma (HCC) MRI Brain Inject, intravenously, once for 1 dose.No IV access, insert saline lock prior to beginning of sedation, infusion, injection of imaging exam.Discontinue saline lock post exam. If Pt. has a central line or IVAD, may access for administration according to line specific nursing protocol.Once exam is complete flush line and de-access according to line specific nursing protocol in the MR contrast administration guidelines link 1 each 11/28/2024 Active Start: 11-28-2024 inject 1 dose intravenously on ce iv contrast (will be provided with radiology test) Indications: Benign meningioma (HCC) MRI Brain Localization Inject, intravenously, once for 1 dose.No IV access, insert saline lock prior to beginning of sedation, infusion, injection of imaging exam.Discontinue saline lock post exam. If Pt. has a central line or IVAD, may access for administration according to line specific nursing protocol.Once exam is complete flush line and de-access according to line specific nursing protocol in the MR contrast administration guidelines link 1 each 11/28/2024 Active Start: 08-01-2024 End: 08-02-2024 inject 1 dose intravenously once iv contrast (will be provided with radiology test) MRI Brain Inject, intravenously, once for 1 dose.No IV access, insert saline lock prior to beginning of sedation, infusion, injection of imaging exam.Discontinue saline lock post exam. If Pt. has a central line or IVAD, may access for administration according to line specific nursing protocol.Once exam is complete flush line and de-access according to line specific nursing protocol in the MR contrast administration guidelines link 1 Each 08/01/2024 08/02/2024 Active Start: 08-01-2024 End: 08-02-2024 iv contrast (will be provide d with radiology test) MRI Pituitary Inject, intravenously, once for 1 dose. No IV access, insert saline lock prior to the beginning of sedation, infusion, injection of imaging exam. Discontinue saline lock post exam. If Pt. has a central line or IVAD, may access for administration according to line specific nursing protocol. Once exam is complete flush line and de-access according to line specific nursing protocol in the MR contrast administration guidelines link. 1 Each 08/01/2024 08/02/2024 Active Start: 05-20-2024 End: 05-21-2024 inject 1 dose intravenously once iv contrast (will be provided with radiology test) MRI Brain Inject, intravenously, once for 1 dose.No IV access, insert saline lock prior to beginning of sedation, infusion, injection of imaging exam.Discontinue saline lock post exam. If Pt. has a central line or IVAD, may access for administration according to line specific nursing protocol.Once exam is complete flush line and de-access according to line specific nursing protocol in the MR contrast administration guidelines link 1 Each 05/20/2024 05/21/2024 Active Start: 04-15-2024 End: 04-16-2024 inject 1 dose intravenously once iv contrast (will be provided with radiology test) Indications: Intracranial meningioma (HCC) MRI Brain Inject, intravenously, once for 1 dose.No IV access, insert saline lock prior to beginning of sedation, infusion, injection of imaging exam.Discontinue saline lock post exam. If Pt. has a central line or IVAD, may access for administration according to line specific nursing protocol.Once exam is complete flush line and de-access according to line specific nursing protocol in the MR contrast administration guidelines link 1 Each 04/15/2024 04/16/2024 Active Start: 02-19-2024 End: 02-20-2024 iv contrast (will be provide d with radiology test) MRI Pituitary Inject, intravenously, once for 1 dose. No IV access, insert saline lock prior to the beginning of sedation, infusion, injection of imaging exam. Discontinue saline lock post exam. If Pt. has a central line or IVAD, may access for administration according to line specific nursing protocol. Once exam is complete flush line and de-access according to line specific nursing protocol in the MR contrast administration guidelines link. 1 Each 0 02/19/2024 02/20/2024 Start: 02-19-2024 End: 02-20-2024 iv contrast (will be provide d with radiology test) MRI Pituitary Inject, intravenously, once for 1 dose. No IV access, insert saline lock prior to the beginning of sedation, infusion, injection of imaging exam. Discontinue saline lock post exam. If Pt. has a central line or IVAD, may access for administration according to line specific nursing protocol. Once exam is complete flush line and de-access according to line specific nursing protocol in the MR contrast administration guidelines link. 1 Each 0 02/19/2024 02/20/2024 Active levETIRAcetam 750 mg oral tablet (20 sources) Start: 06-25-2024 take 2 tablets by mouth once daily levETIRAcetam (Keppra) 750 MG tablet Take 2 tablets (1,500 mg) by mouth daily. 180 tablet 1 06/25/2024 Active Start: 05-03-2024 End: 01-16-2026 take 2 tablets by mouth twice daily levETIRAcetam (KEPPRA) 750 mg tablet Take 2 tablets by mouth two times a day. 360 tablet 3 01/16/2025 01/16/2026 Active Multiple Vitamin (multivitamin) capsule (20 sources) take 1 capsule by mouth once daily Multiple Vitamin (multivitamin) capsule Take 1 capsule by mouth daily. Active Qqkftpnacumz-Nuve-Bhraj Acid (Centrum Women) 18-400 mg-mcg tablet (1 source) Start: 05-03-20 Lyiicyndrket-Dols-Rljb c Acid (Centrum Women) 18-400 mg-mcg tablet Active 1 {tbl} PO DAILY May 03, 2024 12:00am supplement NONFORMULARY (2 sources) NONFORMULARY Pt is using hemp oil and cream 0 Active Cunningham 5-Ake-Qkb-Fish Oil (Fish Oil) 900 mg-360 mg- 455 mg-1,000 mg capsule (1 source) Start: 05-03-20 Cunningham 3-Iwv-Tls-Fish Oil (Fish Oil) 900 mg-360 mg- 455 mg-1,000 mg capsule Active 1 NMA PO DAILY May 03, 2024 12:00am supplement omega-3 acid ethyl esters (mcfp) 1000 mg oral capsule (1 source) take 1 capsule by mouth three times daily Cunningham-3 Fatty Acids (FISH OIL) 1000 MG CAPS Take 3,000 mg by mouth 3 times daily 0 Active pantoprazole 40 mg delayed release oral tablet (20 sources) Proton Pump Inhibitor Start: 05-03-20 End: 07-04-20 pantoprazole (ProtoNix) 40 MG EC tablet Take 40 mg by mouth. 05/04/2024 Active primidone 50 mg oral tablet (20 sources) Anti-epileptic Agent Start: 01-17-20 End: 07-15-19 take 2 tablets by mouth once daily at bedtime primidone (MYSOLINE) 50 mg tablet Indications: Essential tremor Take 2 tablets by mouth daily at bedtime for 7 days. Take until the script from [facility] comes in 14 tablet 01/21/2025 Active Start: 07-04-2024 End: 04-06-2025 take 1 tablet by mouth once daily at bedtime primidone (MYSOLINE) 50 mg tablet Indications: Provoked seizures (HCC) Take 1 tablet by mouth daily at bedtime. 90 tablet 1 10/08/2024 01/16/2025 Discontinued propranolol hydrochloride 10 mg oral tablet (20 sources) beta-Adrenergic Zully Start: 06-21-2024 End: 11-21-2024 take 1.5 tablets by mouth twice daily propranolol (Inderal) 10 MG tablet Indications: Tremor Take 1.5 tablets (15 mg) by mouth 2 times daily. 270 tablet 1 06/21/2024 11/21/2024 Discontinued Start: 05-17-2024 End: 03-17-2025 propranolol (Inderal) 10 MG tablet Indications: Tremor TAKE ONE AND ONE-HALF TABLETS TWICE A DAY 270 tablet 3 11/21/2024 Active Start: 03-12-2024 End: 06-21-2024 take 1 tablet by mouth twice daily Propranolol 20 mg tablet Discontinued 20 mg PO TWICE A DAY May 03, 2024 12:00am May 17, 2024 8:59am blood pressure Start: 09-11-2023 propranolol (I nderal) 20 MG tablet TAKE 1 TABLET TWICE A DAY 180 tablet 1 09/11/2023 Active Start: 10-13-2022 End: 03-14-2023 take 1 tablet by mouth twice daily propranolol (Inderal) 20 MG tablet Take 1 tablet (20 mg) by mouth 2 times daily. 180 tablet 1 03/14/2023 Active Start: 04-30-2020 End: 2020 take 1 tablet by mouth twice daily propranolol (INDERAL) 20 MG tablet Indications: Essential tremor Take 1 tablet by mouth 2 times daily 180 tablet 3 04/30/2020 2020 Active Start: 04-06-2020 take 1 tablet by rose three times daily propranolol (INDERAL) 10 MG tablet Indications: Essential tremor Take 1 tablet by mouth 3 times daily 90 tablet 3 04/06/2020 Active End: 01-16-2025 propranolol (INDERAL) 10 mg tablet Take 15 mg by mouth two times a day. 01/16/2025 Discontinued (Course of therapy completed) rosuvastatin calcium 10 mg oral tablet (20 sources) HMG-CoA Reductase Inhibitor Start: 06-24-2024 End: 01-20-2025 rosuvastatin (Crestor) 10 MG tablet Indications: Hyperlipidemia, unspecified hyperlipidemia type TAKE 1 TABLET DAILY 90 tablet 1 12/16/2024 Active simvastatin 40 mg oral tablet (20 sources) HMG-CoA Reductase Inhibitor Start: 03-12-2024 End: 06-24-2024 take 1 tablet by mouth at bedtime Simvastatin 40 mg tablet Active 40 mg PO AT BEDTIME May 03, 2024 12:00am cholesterol Start: 10-13-2022 End: 07-04-2024 simvastatin (Zocor) 40 MG ta blet TAKE 1 TABLET NIGHTLY 90 tablet 1 09/11/2023 Active Start: 12-06-2019 simvastatin (Z OCOR) 20 MG tablet Indications: Hyperlipidemia, unspecified hyperlipidemia type TAKE 1 TABLET NIGHTLY 90 tablet 1 12/06/2019 Active solifenacin succinate 10 mg oral tablet (6 sources) Cholinergic Muscarinic Antagonist Start: 02-10-2025 take 1 tablet by mouth once daily Solifenacin (Vesicare) 10 mg tablet Active 10 mg PO daily 90 February 10, 2025 12:00am take 5 mg by mouth once daily so lifenacin (VESICARE) 10 mg tablet Take 5 mg by mouth once daily. Active triamcinolone acetonide 5 mg/ml topical cream (20 sources) Corticosteroid Start: 02-12-2024 triamcinolone (Kenalog) 0.5 % cream Apply topically 3 times daily. 30 g 02/12/2024 Active turmeric extract 500 mg oral capsule (3 sources) Turmeric 500 MG TABS Take by mouth 0 Active vitamin b12 5 mg sublingual tablet (20 sources) Vitamin B12 Cyanocobalamin ( Vitamin B-12) [address] under the tongue. Active vitamin B-12 (CY ANOCOBALAMIN) 100 MCG tablet Take 50 mcg by mouth daily 0 Active VITAMIN D PO (20 sources) VITAMIN D PO Loco e by mouth. Active vitamin e 180 mg oral capsule (20 sources) take 1 capsule by mo uth once daily vitamin E 180 MG (400 UNIT) capsule Take 180 mg by mouth daily. Active take 1 capsule by mouth once mariela ly vitamin E 1000 units capsule Take 1,000 Units by mouth daily 0 Active Completed/Discontinued Medications Medication Drug Class(es) Dates Sig (Normalized) Sig (Original) bacitracin 0.5 unt/mg / polymyxin b 10 unt/mg topical ointment (5 sources) Polymyxin-class Antibacterial Start: 05-03-2024 End: 07-04-2024 bacitracin zinc-polymyxin B (POLYSPORIN) 500-10,000 unit/gram ointment Apply to affected area three times a day. 05/03/2024 07/04/2024 Discontinued (Other) Start: 05-03-2024 End: 05-17-2024 Bacitracin Zinc-Polymyxin B 500-10,000 unit/gram ointment Discontinued 1 NMA TOPICAL Q12H May 03, 2024 12:00am May 17, 2024 8:50am wound bisacodyl 10 mg rectal suppository (4 sources) Stimulant Laxative Start: 05-03-2024 End: 07-04-2024 bisacodyl (DULCOLAX) 10 mg supp 1 Suppository by RECTAL route once daily as needed. 05/03/2024 07/04/2024 Discontinued (Other) CALCIUM/MAG OXIDE/VITAMIN D3 (CORAL CALCIUM PLUS ORAL) (20 sources) End: 07-04-2024 CALCIUM/MAG OXIDE/VITAMIN D3 (CORAL CALCIUM PLUS ORAL) pt not sure of dosage takes 1 daily 07/04/2024 Discontinued (Other) CALCIUM/MAG OXID E/VITAMIN D3 (CORAL CALCIUM PLUS ORAL) pt not sure of dosage takes 1 daily Suspended CALCIUM/MAG OXID E/VITAMIN D3 (CORAL CALCIUM PLUS ORAL) pt not sure of dosage takes 1 daily Active CALCIUM/MAG OXID E/VITAMIN D3 (CORAL CALCIUM PLUS ORAL) pt not sure of dosage takes 1 daily 0 Active cefadroxil 500 mg oral capsule (3 sources) Cephalosporin Antibacterial Start: 05-20-2024 End: 02-10-2025 take 1 tablet by mouth twice daily Cefadroxil 500 mg capsule Discontinued 500 mg PO TWICE A DAY 12 0 May 20, 2024 1:00am February 10, 2025 3:47pm 1 tab twice a day until gone. cyanocobalamin, vitamin B-12, (VITAMIN B-12 ORAL) (8 sources) End: 11-04-2024 cyanocobalamin, vitamin B-12, (VITAMIN B-12 ORAL) Take by mouth once daily. 11/04/2024 Discontinued cyanocobalamin, vitamin B-12, (VITAMIN B-12 ORAL) Take by mouth once daily. Active dexamethasone 2 mg oral tablet (17 sources) Corticosteroid Start: 12-07-2024 End: 01-16-2025 dexAMETHasone (DECADRON) 2 mg tablet Start the day after your Gamma Knife Procedure: Decadron (dexamethasone) Take 4 mg (2 tablets) daily for 3 days. Take 2 mg (1 tablet) daily for 3 days then Stop Decadron Patient should start on December 07, 2024. 9 tablet 12/06/2024 10:27 AM EDT 12/07/2024 01/16/2025 Discontinued (Other) Start: 12-06-2024 End: 12-06-2024 dexAMETHasone (DECADRON) tab (s) 10 mg Start: 12-06-2024 End: 12-06-2024 take 1 dose by mouth once 10 mg, ORAL, ONCE, 1 dose, O n 12/06/24 at 0930 Start: 05-20-2024 End: 02-10-2025 take 1 tablet by mouth once daily Dexamethasone 1 mg tablet Discontinued 1 mg PO DAILY 4 May 20, 2024 1:00am February 10, 2025 3:47pm take one tab daily until gone. Start: 05-03-2024 End: 05-21-2024 take 4 tablets by mouth twice daily at mealtime, then take 2 tablets by mouth twice daily at mealtime, then take 2 tablets by mouth once daily at breakfast, then take 1 tablet by mouth once daily at breakfast dexAMETHasone (DECADRON) 1 mg tablet Take 4 tablets by mouth two times a day with meals for 3 days, THEN 2 tablets two times a day with meals for 5 days, THEN 2 tablets daily with breakfast for 5 days, THEN 1 tablet daily with breakfast for 5 days. 59 tablet 05/03/2024 05/21/2024 Active docusate sodium 100 mg oral capsule (8 sources) End: 04-24-2023 take 1 capsule by mouth in the morning Docusate Sodium (DSS) 100 MG capsule Take 100 mg by mouth in the morning and 100 mg before bedtime. 0 04/24/2023 Discontinued fluticasone propionate 0.05 mg/actuat metered dose nasal spray (2 sources) Corticosteroid Start: 08-23-2023 End: 08-22-2024 take 2 spray(s) nasal route once daily fluticasone (Flonase) 50 MCG/ACT nasal spray Indications: Nasal congestion Administer 2 sprays into each nostril daily. Shake gently. Before first use, prime pump. After use, clean tip and replace cap. 16 g 1 08/23/2023 01/02/2024 Discontinued (Therapy completed) gadobutrol (Gadavist) injection 7.6 mL (2 sources) Start: 02-07-2024 End: 02-07-2024 7.6 mL (rounded from 7.5 mL), IntraVENous, IMG once PRN, contrast, Starting on Mon02/07/24 at 1042, For 1 dose glucagon (rdna) 1 mg injection (4 sources) Antihypoglycemic Agent Start: 05-03-2024 End: 07-04-2024 glucagon 1 mg/mL injection Inject 1 mg intramuscularly as needed. 05/03/2024 07/04/2024 Discontinued (Other) glucose 0.45 mg/mg oral gel (4 sources) Start: 05-03-2024 End: 07-04-2024 dextrose (TRUEPLUS) 15 gram/32 mL oral gel Take 32 mL by mouth as needed. 05/03/2024 07/04/2024 Discontinued (Other) 1 ml heparin sodium, porcine 5000 unt/ml injection (5 sources) Unfractionated Heparin, Anti-coagulant Start: 05-03-2024 End: 07-04-2024 inject 1 mL by subcutaneous injection every eight hours heparin 5,000 unit/mL injection Inject 1 mL subcutaneously every 8 hours. 05/03/2024 07/04/2024 Discontinued (Other) Start: 05-03-2024 End: 05-17-2024 Heparin (Porcine) 5,000 unit /mL solution Discontinued 5000 U SC Q8H May 03, 2024 12:00am May 17, 2024 8:54am clot prevention 1 ml hydrALAZINE hydrochloride 20 mg/ml injection (5 sources) Arteriolar Vasodilator Start: 05-03-2024 End: 07-04-2024 take 10 mg intravenously every six hours as needed hydrALAZINE (APRESOLINE) 20 mg/mL injection Inject 0.5 mL intravenously every 6 hours as needed (sbp goal 05/03/2024 07/04/2024 Discontinued (Other) Start: 05-03-2024 End: 05-17-2024 take 1 tablet by mouth every four hours as needed for hypertension Hydralazine 10 mg tablet Discontinued 10 mg PO Q4H as needed for hypertension May 03, 2024 12:00am May 17, 2024 8:55am until target blood pressure attained hydroCHLOROthiazide 12.5 mg oral capsule (20 sources) Thiazide Diuretic Start: 03-12-2024 End: 06-21-2024 hydroCHLOROthiazide (Microzide) 12.5 MG capsule TAKE 1 CAPSULE EVERY MORNING 90 capsule 1 03/12/2024 06/21/2024 Discontinued (Med list cleanup) Start: 09-11-2023 hydroCHLOROthi azide (Microzide) 12.5 MG capsule TAKE 1 CAPSULE EVERY MORNING 90 capsule 1 09/11/2023 Active Start: 10-13-2022 End: 03-14-2023 take 1 capsule by mouth once daily in the morning hydroCHLOROthiazide (Microzide) 12.5 MG capsule Take 1 capsule (12.5 mg) by mouth every morning. 90 capsule 1 03/14/2023 Active Start: 12-06-2019 take 1 capsule by mo ut once daily in the morning hydroCHLOROthiazide (MICROZIDE) 12.5 MG capsule Indications: Essential hypertension Take 1 capsule by mouth every morning 90 capsule 1 12/06/2019 Active End: 07-04-2024 take 1 tablet by mouth once daily hydroCHLOROthiazide 12.5 mg tablet Take 12.5 mg by mouth once daily. 07/04/2024 Discontinued (Other) hydroCHLOROthiazide 25 mg / propranolol hydrochloride 80 mg oral tablet (6 sources) Thiazide Diuretic, beta-Adrenergic Zully End: 04-04-2024 take 1 tablet by mouth once daily Propranolol-Hydrochlorothiazid 80-25 mg ORAL per tablet Take one(1) tablet daily. 04/04/2024 Discontinued 3 ml insulin glargine 100 unt/ml pen injector (4 sources) Insulin Analog Start: 05-03-2024 End: 07-04-2024 inject 13 [IU] by subcuta neous injecti on once daily at bedtime insulin glargine 100 unit/mL (3 mL) Inject 13 Units subcutaneously daily at bedtime. 05/03/2024 07/04/2024 Discontinued (Other) ipratropium bromide 0.042 mg/actuat metered dose nasal spray (2 sources) Anticholinergic Start: 08-23-2023 End: 01-02-2024 take 1 spray(s ) nasal route three times daily ipratropium (Atrovent) 0.06 % nasal spray Indications: Nasal congestion Administer 1 spray into each nostril 3 times daily for 7 days. 15 mL 08/23/2023 01/02/2024 Discontinued (Therapy completed) 10 ml lidocaine hydrochloride 20 mg/ml injection (2 sources) Antiarrhythmic, Amide Local Anesthetic Start: 06-27-2023 End: 06-27-2023 lidocaine (Xylocaine) 2 % injection 4 mL Start: 06-27-2023 End: 06-27-2023 lidocaine (Xylocaine) 2 % in jection 4 mL lisinopril 10 mg oral tablet (20 sources) Angiotensin Converting Enzyme Inhibitor Start: 03-12-2024 End: 06-21-2024 take 1 tablet by mouth once daily Lisinopril 10 mg tablet Discontinued 10 mg PO DAILY May 03, 2024 12:00am May 17, 2024 8:57am blood pressure Start: 12-06-2019 End: 07-04-2024 lisinopril 10 MG tablet TAKE 1 TABLET DAILY 90 tablet 1 09/11/2023 Active magnesium hydroxide 80 mg/ml oral suspension (4 sources) Start: 05-03-2024 End: 07-04-2024 take 30 mL by mouth once daily as needed magnesium hydroxide (MOM) 400 mg/5 mL suspension 30 mL by ORAL/FEEDING TUBE route once daily as needed. 05/03/2024 07/04/2024 Discontinued (Other) meclizine hydrochloride 25 mg oral tablet (7 sources) Antiemetic Start: 06-27-2023 End: 01-02-2024 take 1 tablet by mouth three times daily as needed for dizziness meclizine (Antivert) 25 MG tablet Take 1 tablet (25 mg) by mouth 3 times daily as needed for dizziness. 20 tablet 07/04/2023 01/02/2024 Discontinued (Therapy completed) modified 24 hr metFORMIN hydrochloride 500 mg extended release oral tablet (6 sources) Biguanide End: 04-04-2024 take 1 tablet by mouth once daily at breakfast metFORMIN 500 mg 24 hr tablet Take 500 mg by mouth daily with breakfast. 04/04/2024 Discontinued 1 ml methylPREDNISolone acetate 40 mg/ml injection (2 sources) Corticosteroid Start: 06-27-2023 End: 06-27-2023 methylPREDNISolone acetate (DEPO-Medrol) injection 40 mg Start: 06-27-2023 End: 06-27-2023 methylPREDNISolone acetate ( DEPO-Medrol) injection 40 mg multivitamin/iron/folic acid (CENTRUM ORAL) (20 sources) End: 01-16-2025 multivitamin/iron/folic acid (CENTRUM ORAL) Take by mouth. 01/16/2025 Discontinued (Other) multivitamin/iro n/folic acid (CENTRUM ORAL) Take by mouth. Suspended multivitamin/iro n/folic acid (CENTRUM ORAL) Take by mouth. Active multivitamin/iro n/folic acid (CENTRUM ORAL) Take by mouth. 0 Active naproxen sodium 220 mg oral capsule (15 sources) Nonsteroidal Anti-inflammatory Drug End: 01-02-2024 Naproxen Sodium 220 MG capsule Take by mouth. 01/02/2024 Discontinued (Therapy completed) nitrofurantoin, macrocrystals 25 mg / nitrofurantoin, monohydrate 75 mg oral capsule (5 sources) Nitrofuran Antibacterial Start: 04-22-2024 End: 04-27-2024 take 1 capsule by mouth twice daily nitrofurantoin monohydrate and macrocrystal (MACROBID) 100 mg capsule Indications: Pre-op testing , Urinary tract infection without hematuria, site unspecified Take 1 capsule by mouth two times a day for 5 days. 10 capsule 04/22/2024 04/27/2024 Suspended nystatin 100 unt/mg topical powder (20 sources) Polyene Antifungal Start: 05-03-2024 End: 05-17-2024 Nystatin 100,000 unit/gram powder Discontinued 1 NMA TOPICAL TWICE A DAY May 03, 2024 12:00am May 17, 2024 8:57am redness Start: 04-15-2024 nystatin (Myco statin) [id number] UNIT/GM powder Indications: Skin yeast infection Apply topically three times daily. 30 g 04/15/2024 Active Start: 04-15-2024 End: 07-04-2024 nystatin (MYCOSTATIN) powder 04/15/2024 07/04/2024 Discontinued (Other) Start: 03-24-2021 End: 01-02-2024 nystatin (Mycostatin) [id number] UNIT/GM powder Apply 3 times daily. 03/24/2021 01/02/2024 Discontinued (Therapy completed) Cunningham-3 Fatty Acids-Vitamin E (FISH OIL) 1,000 mg cap (20 sources) End: 01-16-2025 Cunningham-3 Fatty Acids-Vitamin E (FISH OIL) 1,000 mg cap Take 1 capsule by mouth. 01/16/2025 Discontinued (Other) Cunningham-3 Fatty Ac ids-Vitamin E (FISH OIL) 1,000 mg cap Take 1 capsule by mouth. Suspended Cunningham-3 Fatty Ac ids-Vitamin E (FISH OIL) 1,000 mg cap Take 1 capsule by mouth. Active Cunningham-3 Fatty Ac ids-Vitamin E (FISH OIL) 1,000 mg cap Take 1 capsule by mouth. 0 Active ondansetron 4 mg oral tablet (5 sources) Serotonin-3 Receptor Antagonist Start: 05-03-2024 End: 07-04-2024 take 1 tablet by mouth every six hours as needed ondansetron (ZOFRAN) 4 mg tablet Take 1 tablet by mouth every 6 hours as needed. 05/03/2024 07/04/2024 Discontinued (Other) Start: 05-03-2024 End: 05-17-2024 take 1 tablet by mouth every six hours as needed for nausea and vomiting Ondansetron 4 mg tablet,disintegrating Discontinued 4 mg PO EVERY 6 HOURS as needed for nausea and vomiting May 03, 2024 12:00am May 17, 2024 8:57am oxyCODONE hydrochloride 5 mg oral tablet (1 source) Opioid Agonist Start: 05-03-2024 End: 05-17-2024 take 1 tablet by mouth every four hours as needed for pain Oxycodone 5 mg tablet Discontinued 5 mg PO Q4H as needed for pain 0 May 03, 2024 12:00am May 17, 2024 8:58am penicillin v potassium 500 mg oral tablet (2 sources) Start: 08-14-2023 End: 01-02-2024 take 1 tablet by mouth every six hours penicillin v potassium (Veetid) 500 MG tablet TAKE 1 TABLET BY MOUTH EVERY 6 HOURS UNTIL GONE 08/14/2023 01/02/2024 Discontinued (Therapy completed) Problems Active Problems Problem Classification Problem Date Documented Da te Episodic/Chronic Acute cerebrovascular disease (20 sources) Hematoma of subdural space of neuraxis; Translations: [SDH (subdural hematoma) (HCC)] Onset: 02-13-2024 02-14-2024 Chronic Acute posthemorrhagic anemia (2 sources) Acute posthemorrhagic anemia; Translations: [Acute posthemorrhagic anemia] Onset: 05-20-2024 05-03-2024 Episodic Cardiac dysrhythmias (2 sources) Bradycardia, unspecified; Translations: [Bradycardia] Onset: 05-20-2024 05-28-2024 Episodic Delirium, dementia, and amnestic and other cognitive disorders (2 sources) Unspecified mental disorder due to known physiological condition; Translations: [Cognitive disorder] Onset: 05-20-2024 05-20-2024 Chronic Diabetes mellitus with complications (20 sources) Type 2 diabetes mellitus; Translations: [Type 2 diabetes mellitus with other specified complication] Onset: 10-07-2016 04-24-2023 Chronic Diabetes mellitus without complication (20 sources) Type 2 diabetes mellitus without complication; Translations: [Type 2 diabetes mellitus without complications] Onset: 10-07-2016 10-07-2016 Chronic Disorders of lipid metabolism (20 sources) Hyperlipidemia; Translations: [Hyperlipidemia, unspecified] Onset: 01-23-2017 01-23-2017 Chronic Essential hypertension (20 sources) Essential hypertension; Translations: [Essential (primary) hypertension] Onset: 10-07-2016 12-06-2019 Chronic Fluid and electrolyte disorders (2 sources) Dehydration; Translations: [Dehydration] Onset: 05-20-2024 05-28-2024 Episodic Genitourinary symptoms and ill-defined conditions (20 sources) Urge incontinence of urine; Translations: [Urge incontinence] Onset: 03-16-2017 03-16-2017 Chronic Malaise and fatigue (2 sources) Other malaise; Translations: [Asthenia] Onset: 05-20-2024 05-04-2024 Episodic Neoplasms of unspecified nature or uncertain behavior (3 sources) Neoplasm of uncertain behavior of skin of back; Translations: [Neoplasm of uncertain behavior of skin] Episodic Osteoarthritis (20 sources) Arthritis of right hip; Translations: [Unilateral primary osteoarthritis, right hip] Onset: 12-06-2019 04-24-2022 Chronic Other aftercare (1 source) Post-discharge follow-up; Translations: [Encounter for follow-up examination after completed treatment for conditions other than malignant neoplasm] 05-27-2024 Episodic Other and ill-defined cerebrovascular disease (20 sources) Aneurysm of anterior communicating artery; Translations: [Cerebral aneurysm, nonruptured] Onset: 04-27-2024 04-27-2024 Chronic Other and ill-defined cerebrovascular disease (2 sources) Cerebral arterial aneurysm; Translations: [Cerebral aneurysm, nonruptured] 08-27-2024 Chronic Other and unspecified benign neoplasm (20 sources) Intracranial meningioma; Translations: [Benign neoplasm of cerebral meninges] Onset: 04-08-2024 02-14-2024 Chronic Other and unspecified benign neoplasm (20 sources) Benign neoplasm of cerebral meninges; Translations: [Benign neoplasm of cerebral meninges] Onset: 10-05-2010 10-05-2010 Chronic Other and unspecified benign neoplasm (5 sources) Benign neoplasm of meninges; Translations: [Benign neoplasm of meninges, unspecified] 02-19-2024 Chronic Other and unspecified benign neoplasm (20 sources) Benign meningioma; Translations: [Benign neoplasm of meninges, unspecified] Onset: 04-16-2024 04-09-2024 Chronic Other and unspecified benign neoplasm (20 sources) Neoplasm of meninges; Translations: [Benign neoplasm of meninges, unspecified] Onset: 04-26-2024 04-26-2024 Chronic Other and unspecified benign neoplasm (5 sources) Benign neoplasm of meninges, unspecified; Translations: [Benign neoplasm of meninges, unspecified] Onset: 04-16-2024 Chronic Other and unspecified benign neoplasm (5 sources) Benign neoplasm of cerebral meninges; Translations: [Intracranial meningioma (HCC)] Onset: 04-08-2024 Chronic Other circulatory disease (1 source) Hypotension, unspecified; Translations: [Hypotension, unspecified] Onset: 05-20-2024 Episodic Other circulatory disease (1 source) Low blood pressure; Translations: [Hypotension, unspecified] 05-28-2024 Episodic Other connective tissue disease (9 sources) Other symptoms and signs involving the musculoskeletal system; Translations: [Other musculoskeletal symptoms referable to limbs] Onset: 03-24-2025 03-24-2025 Episodic Other eye disorders (5 sources) Exophthalmos; 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] 02-07-2024 Chronic Other eye disorders (20 sources) Hemorrhage of left orbit; Translations: [Orbital hemorrhage] Onset: 02-14-2024 02-14-2024 Chronic Other gastrointestinal disorders (1 source) Chronic idiopathic constipation; Translations: [Chronic idiopathic constipation] Onset: 05-20-2024 Chronic Other gastrointestinal disorders (1 source) Dysphagia, oropharyngeal phase; Translations: [Dysphagia, oropharyngeal phase] Onset: 05-20-2024 Episodic Other gastrointestinal disorders (1 source) Oropharyngeal dysphagia; Translations: [Dysphagia, oropharyngeal phase] 05-28-2024 Episodic Other gastrointestinal disorders (1 source) Constipation; Translations: [Constipation, unspecified] 05-28-2024 Episodic Other hereditary and degenerative nervous system conditions (2 sources) Essential tremor; Translations: [Essential tremor] Onset: 05-20-2024 Chronic Other hereditary and degenerative nervous system conditions (14 sources) Essential tremor; Translations: [Essential tremor] Onset: 01-16-2025 01-16-2025 Chronic Other nervous system disorders (20 sources) Aphasia; Translations: [Aphasia] Onset: 04-27-2024 04-27-2024 Chronic Other nervous system disorders (18 sources) Neuropathy; Translations: [Polyneuropathy, unspecified] Onset: 06-21-2024 06-21-2024 Chronic Other nervous system disorders (1 source) Dysarthria and anarthria; Translations: [Dysarthria and anarthria] Onset: 05-20-2024 Episodic Other nervous system disorders (1 source) Dysarthria; Translations: [Dysarthria and anarthria] 05-28-2024 Episodic Other non-traumatic joint disorders (3 sources) Arthritis of right hip; Translations: [Arthritis of right hip] Onset: 12-06-2019 12-06-2019 Other nutritional; endocrine; and metabolic disorders (20 sources) Obesity caused by energy imbalance; Translations: [Other obesity due to excess calories] Onset: 04-01-2022 04-24-2023 Chronic Residual codes; unclassified (20 sources) Obstructive sleep apnea syndrome; Translations: [Obstructive sleep apnea (adult) (pediatric)] Onset: 04-18-2024 04-18-2024 Chronic Comment on above: Used to wear CPAP bu t, she has discontinued this. Not on O2 at night. Residual codes; unclassified (2 sources) Obstructive sleep apnea (adult) (pediatric); Translations: [Obstructive sleep apnea (adult) (pediatric)] Onset: 04-18-2024 Chronic Residual codes; unclassified (1 source) Other specified postprocedural states; Translations: [Other specified postprocedural states] Onset: 05-20-2024 Episodic Residual codes; unclassified (1 source) History of craniotomy; Translations: [Other specified postprocedural states] 05-03-2024 Episodic Comment on above: 04/26/2024 at [facility] By Dr. Jeronimo for a left sphenoid wing meningioma. Unclassified (1 source) New Patient Onset: 07-04-2024 Unclassified (1 source) Radiotherapy On-treatment Visit Onset: 01-22-2025 Unclassified (2 sources) Blood Work; Translations: [Blood Work] Onset: 07-23-2024 Unclassified (2 sources) Blood Pressure Check; Translations: [Blood Pressure Check] Onset: 07-23-2024 Urinary tract infections (6 sources) Urinary tract infectious disease; Translations: [Urinary tract infection, site not specified] Onset: 05-20-2024 04-22-2024 Episodic Past or Other Problems Problem Classification Problem Date Documented Da te Episodic/Chronic Allergic reactions (20 sources) Contact dermatitis due to poison ro; Translations: [Allergic contact dermatitis due to plants, except food] Onset: 02-12-2024 Resolved: 05-27-2024 02-12-2024 Episodic Cancer; other and unspecified primary (15 sources) History of meningioma; Translations: [Personal history of other benign neoplasm] Onset: 04-08-2024 06-21-2024 Episodic Cancer; other and unspecified primary (2 sources) Personal history of other benign neoplasm; Translations: [Personal history of other benign neoplasm] Onset: 06-21-2024 Episodic Conditions associated with dizziness or vertigo (20 sources) Benign paroxysmal positional vertigo; Translations: [Benign paroxysmal vertigo, left ear] Onset: 06-27-2023 Resolved: 06-21-2024 06-27-2023 Episodic E Codes: Fall (20 sources) Fall; Translations: [Unspecified fall, initial encounter] Onset: 02-14-2024 02-14-2024 Episodic Epilepsy; convulsions (20 sources) Seizure; Translations: [Unspecified convulsions] Onset: 04-28-2024 04-28-2024 Episodic Genitourinary symptoms and ill-defined conditions (20 sources) Increased frequency of urination; Translations: [Frequency of micturition] Onset: 03-16-2017 03-16-2017 Episodic Immunizations and screening for infectious disease (4 sources) Needs influenza immunization; Translations: [Encounter for immunization] Onset: 04-08-2024 04-24-2023 Episodic Intracranial injury (20 sources) Traumatic brain injury; Translations: [TBI (traumatic brain injury)] Onset: 02-14-2024 02-14-2024 Episodic Mood disorders (20 sources) Mood disorders Onset: 04-24-2023 04-24-2023 Mycoses (3 sources) Candidiasis of skin; Translations: [Candidiasis of skin and nail] Onset: 04-15-2024 04-15-2024 Episodic Other aftercare (2 sources) Encounter for follow-up examination after completed treatment for conditions other than malignant neoplasm; Translations: [Encounter for follow-up examination after completed treatment for conditions other than malignant neoplasm] Onset: 05-27-2024 Episodic Other connective tissue disease (20 sources) Trochanteric bursitis; Translations: [Trochanteric bursitis, right hip] Onset: 05-13-2019 Resolved: 06-21-2024 12-06-2019 Episodic Other injuries and conditions due to external causes (20 sources) Traumatic injury; Translations: [Injury, unspecified, initial encounter] Onset: 02-14-2024 02-14-2024 Episodic Other lower respiratory disease (17 sources) Cough; Translations: [Acute cough] Onset: 08-23-2023 08-23-2023 Episodic Other lower respiratory disease (20 sources) Cough; Translations: [Acute cough] Onset: 08-23-2023 Resolved: 04-08-2024 04-08-2024 Episodic Other nervous system disorders (20 sources) Tremor; Translations: [Tremor, unspecified] Onset: 04-01-2022 04-24-2022 Episodic Other nervous system disorders (2 sources) Tremor, unspecified; Translations: [Tremor, unspecified] Onset: 04-24-2022 Episodic Other non-traumatic joint disorders (1 source) Hip pain; Translations: [Chronic right hip pain] Episodic Other nutritional; endocrine; and metabolic disorders (20 sources) Body mass index 25-29 - overweight; Translations: [Overweight] Onset: 04-01-2022 Episodic Other nutritional; endocrine; and metabolic disorders (2 sources) Overweight; Translations: [Overweight] Onset: 06-21-2024 Episodic Other upper respiratory disease (20 sources) Nasal congestion; Translations: [Nasal congestion] Onset: 08-23-2023 08-23-2023 Episodic Spondylosis; intervertebral disc disorders; other back problems (20 sources) Lumbar radiculopathy; Translations: [Acute back pain with sciatica] Onset: 01-02-2024 Resolved: 04-08-2024 01-02-2024 Episodic Unclassified (3 sources) Weakness of both legs 03-24-2025 Results Test Name Value Interpretation Reference Range Facility 36on 04-03-2025 36 Notified Jennifer of a tb given to pt and of ok for nursing for skin breakdown She states she will let us know Monday of any updates and changes [facility] 36 Trina was notified [place] [address] Yes, nursing to foll ow skin change. [facility] 36 Jennifer states that p t does have small breakdown of skin on crease of buttock not sure if open due to lighting no drainage do you want nursing to follow for this? When we call Jennifer back - inform her that we did send in atb for UTI and Trina will call us on Monday with how mom is doing [place] [address] Prescription for bactrim sent to pharmacy. Ideally we would have a culture. Have her give us an update in a few days. [facility] 36 Name of caller: Tisha shearer Contact phone number: [phone] Relationship to Patient: Daughter Provider: Practice: [facility] Chief Complaint/Reason for Call: Patients daughter calling and states the first urine test was contaminated and the second test they lost the culture part of the test. Patient is not improving and would like an antibiotic without having to go get a third test. Please advise. [id number] - [place], [place] - [address] Best time of day caller can be reached: any Patient advised that office/PCP has 24-48 business hours to return their call: no [facility] 36 Name of caller: Veronica costello Contact phone number: [phone] Relationship to Patient: [facility] Provider: Dr. Brandon Practice: [facility] Chief Complaint/Reason for Call: Jennifer states she will complete a start of care service today for Physical Therapy. Also, Millie need the results of the patient UA test. Jennifer will fax a plan of care to the office today. Please advise Best time of day caller can be reached: anytime Patient advised that office/PCP has 24-48 business hours to return their call: Yes [facility] 04-02-2025 CNPN Telephone (NEAGCLM) RESHMA EVANS ([id number]) 1940 F Date Time Provider Department 04/02/25 NEYMAR JERONIMO [facility]AG[facility] During your visit today, we recorded the following information about you: Karli Cox RN 04/02/2025 2:03 PM Signed Tami Mena called to check on Reshma's urine culture. I let her know that her urine culture is still in process. Told her I have been keeping an eye on it and I will call her when the results come up. 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 - primidone (MYSOLINE) 50 mg tablet Take 2 tablets by mouth daily at bedtime for 7 days. Take until the script [facility] comes [facility] - propranolol (INDERAL) 10 mg tablet Take 1 tablet by mouth two times a day for 30 days, THEN 0.5 tablets two times a day. Then Stop.. - primidone (MYSOLINE) 50 mg tablet Take 2 tablets by mouth daily at bedtime. - levETIRAcetam (KEPPRA) 750 mg tablet Take 2 tablets by mouth two times a day. - iv contrast (will be provided with radiology test) MRI Brain Inject, intravenously, once for 1 dose.No IV access, insert saline lock prior to beginning of sedation, infusion, injection of imaging exam.Discontinue saline lock post exam. If Pt. has a central line or IVAD, may access for administration according to line specific nursing protocol.Once exam is complete flush line and de-access according to line specific nursing protocol in the MR contrast administration guidelines link - iv contrast (will be provided with radiology test) MRI Brain Localization Inject, intravenously, once for 1 dose.No IV access, insert saline lock prior to beginning of sedation, infusion, injection of imaging exam.Discontinue saline lock post exam. If Pt. has a central line or IVAD, may access for administration according to line specific nursing protocol.Once exam is complete flush line and de-access according to line specific nursing protocol in the MR contrast administration guidelines link - rosuvastatin (CRESTOR) 10 mg tablet Take 1 tablet by mouth once daily. - acetaminophen (TYLENOL) 500 mg tablet 2 tablets by ORAL/FEEDING TUBE route every 6 hours. - fluorometholone (FML LIQUID FILM) 0.1 % ophthalmic suspension Use 1 Drop in the left eye two times a day. - gabapentin (NEURONTIN) 100 mg capsule Take 100 mg by mouth two times a day. 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] 10/05/2010 SDH (subdural hematoma) (HCC) [S06.5XAA] 02/13/2024 Trauma [T14.90XA] 02/14/2024 Fall [W19.XXXA] 02/14/2024 Periorbital hematoma of left eye [H05.232] 02/14/2024 HTN (hypertension) [I10] 02/14/2024 Hyperlipidemia [E78.5] 02/14/2024 TBI (traumatic brain injury) (HCC) [S06.9XAA] 02/14/2024 Benign meningioma (HCC) [D32.9] 04/16/2024 Pre-op examination [Z01.818] 04/16/2024 Type 2 diabetes mellitus without complication, *10/07/2016 KIMBERLY (obstructive sleep apnea) [G47.33] 04/18/2024 Meningioma (HCC) [D32.9] 04/26/2024 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 36 Name of caller: Tisha shearer Contact phone number: [phone] Relationship to Patient: daughter Provider: Dr Neville Practice: [facility] TERAN Chief Complaint/Reason for Call: Caller is requesting to switch patients home care to [facility] at home. Caller stated they have worked with them before and would prefer them again. Caller also stated they recently spoke with the patients neurosurgeon and they are checking the patient for a UTI. Caller stated the patient has been confused and falling recently. Caller stated they are hoping that's what is happening so the patient can start her physical therapy. Best time of day caller can be reached: any Patient advised that office/PCP has 24-48 business hours to return their call: No Normal [facility] 36 Gave information to Love and she will call back if they need anything else [facility] Urinalysis complete panel (U )on 04-01-2025 Bacteria LM.HPF (Urine sed) [#/Area] Moderate Abnormal None Seen [facility] Comment on above: Order Comment: Speci men Type: URINE SPECIMENOrdering Facility: [facility] Address: [address] [address] Performed By: #### 2 4356-8 ####[facility] ADITYA LABSHARON [id number] [place] [address] [place] Bilirubin Ql (U) Negative Normal Negative [facility] Comment on above: Order Comment: Speci men Type: URINE SPECIMENOrdering Facility: [facility] Address: [address] [place] [address] Performed By: #### 2 4356-8 ####[facility] LABCLIA [id number] [place] [address] [facility] Clarity (Unsp spec) Slightly Cloudy Abnormal Clear [facility] Comment on above: Order Comment: Speci men Type: URINE SPECIMENOrdering Facility: [facility] Address: [address] [place] [address] Performed By: #### 2 4356-8 ####[facility] LABCLIA [id number] [place] [address] [facility] Color (U) Yellow Normal Yellow [facility] Comment on above: Order Comment: Speci men Type: URINE SPECIMENOrdering Facility: [facility] Address: [address] [place] [address] Performed By: #### 2 4356-8 ####[facility] LABCLIA [id number] [place] [address] [facility] Epithelial cells LM.HPF (Urine sed) [#/Area] Few Normal [facility] Comment on above: Order Comment: Speci men Type: URINE SPECIMENOrdering Facility: [facility] Address: [address] [place] [address] Performed By: #### 2 4356-8 ####[facility] LABCLIA [id number] [place] [address] [facility] Glucose Test strip (U) [Mass/Vol] Negative Normal Negative [facility] Comment on above: Order Comment: Speci men Type: URINE SPECIMENOrdering Facility: [facility] Address: [address] [place] [address] Performed By: #### 2 4356-8 ####[facility] LABCLIA [id number] [place] [address] [facility] Hemoglobin Ql (U) Negative Normal Negative [facility] Comment on above: Order Comment: Speci men Type: URINE SPECIMENOrdering Facility: [facility] Address: [address] [place] [address] Performed By: #### 2 4356-8 ####[facility] LABCLIA [id number] [place] [address] [place] Ketones Ql (U) Negative Normal Negative [facility] Comment on above: Order Comment: Speci men Type: URINE SPECIMENOrdering Facility: [facility] Address: [address] [place] [address] Performed By: #### 2 4356-8 ####[facility] LABCLIA [id number] [place] [address] [facility] Leukocyte esterase Test strip Ql (U) 2+ Abnormal Negative [facility] Comment on above: Order Comment: Speci men Type: URINE SPECIMENOrdering Facility: [facility] Address: [address] [place] [address] Performed By: #### 2 4356-8 ####[facility] LABCLIA [id number] [place] [address] [place] Nitrite Ql (U) Negative Normal Negative [facility] Comment on above: Order Comment: Speci men Type: URINE SPECIMENOrdering Facility: [facility] Address: [address] [place] [address] Performed By: #### 2 4356-8 ####[facility] LABCLIA [id number] [place] [address] [place] pH (U) 6.0 [pH] Normal 5.0-8.0 [facility] Comment on above: Order Comment: Speci men Type: URINE SPECIMENOrdering Facility: [facility] Address: [address] [place] [address] Performed By: #### 2 4356-8 ####[facility] LABCLIA [id number] [place] [address] [place] Protein (U) [Mass/Vol] Negative Normal Negative [facility] Comment on above: Order Comment: Speci men Type: URINE SPECIMENOrdering Facility: [facility] Address: [address] [place] [address] Performed By: #### 2 4356-8 ####[facility] LABCLIA [id number] [place] [address] [place] [facility] RBC LM.HPF (Urine sed) [#/Area] 0-3 /HPF Normal 0-3 /HPF [facility] Comment on above: Order Comment: Speci men Type: URINE SPECIMENOrdering Facility: [facility] Address: [address] [place] [address] Performed By: #### 2 4356-8 ####[facility] LABCLIA [id number] [place] [address] [place] [facility] Specific gravity (U) [Rel density] 1.020 Normal 1.005-1.030 [facility] Comment on above: Order Comment: Speci men Type: URINE SPECIMENOrdering Facility: [facility] Address: [address] [place] [address] Performed By: #### 2 4356-8 ####[facility] LABCLIA [id number] [place] [address] [facility] Urobilinogen Ql (U) 0.2 EU/dL Normal 0.2-1.0 EU/dL [facility] Comment on above: Order Comment: Speci men Type: URINE SPECIMENOrdering Facility: [facility] Address: [address] [place] [address] Performed By: #### 2 4356-8 ####[facility] LABCLIA [id number] [place] [address] [facility] WBC LM.HPF (Urine sed) [#/Area] /[HPF] Abnormal 0-5 /HPF [facility] Comment on above: Order Comment: Speci men Type: URINE SPECIMENOrdering Facility: [facility] Address: [address] [place] [address] Performed By: #### 2 4356-8 ####[facility] LABCLIA [id number] [place] [address] [facility] 36on 03-31-2025 36 Yes PT for generaliz ed weakness, gait training and stability. Normal [facility] 36 Per Charo- do you want just physical therapy or also home care? Also they need a diagnostic reason for therapy - weakness in both legs is a symptom they need a diagnosis why Normal [facility] 36 Yes we will be following for home care Normal [facility] 36 Name of caller: Dutch morejon Contact phone number: [phone] Relationship to Patient: [facility] Provider: Traci Practice: [facility] Deshpande Chief Complaint/Reason for Call: Charo called wanting to know if you are willing to follow for home care? Please advise Best time of day caller can be reached: any Patient advised that office/PCP has 24-48 business hours to return their call: No Normal [facility] CNPNon 03-31-2025 CNPN Telephone (NEAGCLM) RESHMA EVANS ([id number]) 1940 F Date Time Provider Department 03/31/25 NEYMAR JERONIMO NEAGCLM During your visit today, we recorded the following information about you: Karli Cox RN 03/31/2025 4:52 PM Signed Spoke with Trina, let her know that Dr Jeronimo stated there was some swelling on her mom's CT scan but nothing acute. Sometimes the swelling can occur post radiation which she had. She is scheduled to talk to rad onc on Monday. Told her her urine culture showed possible contamination, so we would place an order for a new urine. ZOHREH Spear Lena, RN 04/01/2025 9:59 AM Addendum Patient's dtr called, to let us know that they send in repeat urine on patient this morning. Let her know I would monitor the urine results. 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 - primidone (MYSOLINE) 50 mg tablet Take 2 tablets by mouth daily at bedtime for 7 days. Take until the script from [facility] script comes in - propranolol (INDERAL) 10 mg tablet Take 1 tablet by mouth two times a day for 30 days, THEN 0.5 tablets two times a day. Then Stop.. - primidone (MYSOLINE) 50 mg tablet Take 2 tablets by mouth daily at bedtime. - levETIRAcetam (KEPPRA) 750 mg tablet Take 2 tablets by mouth two times a day. - iv contrast (will be provided with radiology test) MRI Brain Inject, intravenously, once for 1 dose.No IV access, insert saline lock prior to beginning of sedation, infusion, injection of imaging exam.Discontinue saline lock post exam. If Pt. has a central line or IVAD, may access for administration according to line specific nursing protocol.Once exam is complete flush line and de-access according to line specific nursing protocol in the MR contrast administration guidelines link - iv contrast (will be provided with radiology test) MRI Brain Localization Inject, intravenously, once for 1 dose.No IV access, insert saline lock prior to beginning of sedation, infusion, injection of imaging exam.Discontinue saline lock post exam. If Pt. has a central line or IVAD, may access for administration according to line specific nursing protocol.Once exam is complete flush line and de-access according to line specific nursing protocol in the MR contrast administration guidelines link - rosuvastatin (CRESTOR) 10 mg tablet Take 1 tablet by mouth once daily. - acetaminophen (TYLENOL) 500 mg tablet 2 tablets by ORAL/FEEDING TUBE route every 6 hours. - fluorometholone (FML LIQUID FILM) 0.1 % ophthalmic suspension Use 1 Drop in the left eye two times a day. - gabapentin (NEURONTIN) 100 mg capsule Take 100 mg by mouth two times a day. 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] 10/05/2010 SDH (subdural hematoma) (HCC) [S06.5XAA] 02/13/2024 Trauma [T14.90XA] 02/14/2024 Fall [W19.XXXA] 02/14/2024 Periorbital hematoma of left eye [H05.232] 02/14/2024 HTN (hypertension) [I10] 02/14/2024 Hyperlipidemia [E78.5] 02/14/2024 TBI (traumatic brain injury) (HCC) [S06.9XAA] 02/14/2024 Benign meningioma (HCC) [D32.9] 04/16/2024 Pre-op examination [Z01.818] 04/16/2024 Type 2 diabetes mellitus without complication, *10/07/2016 KIMBERLY (obstructive sleep apnea) [G47.33] 04/18/2024 Meningioma (HCC) [D32.9] 04/26/2024 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.*04/27/2024 Aphasia [R47.01] 04/27/2024 Provoked seizures (HCC) [R56.9] 04/28/2024 Essential tremor [G25.0] 01/16/2025 Encounter Status:Closed by KARLI COX on 03/31/25 Normal [facility] Bacteria Ur Culton Bacteria identified Cx Nom (U) CULTURE, URINE: 10,000-<50,000 CFU/mL Three or more organisms, no one type predominant, suggesting contamination during collection. Recollect if clinically indicated. Abnormal [facility] Comment on above: Performed By: #### 6 30-4 #### [facility] CLIA [id number] [address] [place] [address] [place] CT BRAIN WO IVCONon 03-28-[address] BRAIN WO IVCON * * *Final Report* * * DATE OF EXAM: Mar 28 2025 9:58AM [facility] 0504 - CT BRAIN WO IVCON / PROCEDURE REASON: D32.0-Intracranial meningioma (HCC) * * * * Physician Interpretation * * * * EXAMINATION: CT BRAIN WO IVCON CLINICAL HISTORY: Meningioma. TECHNIQUE: Serial axial images without IV contrast were obtained from the vertex to the foramen magnum. MQ: [id number]_3 CT Radiation dose: Integrated Dose-Length Product (DLP) for this visit = 778 mGy*cm CT Dose Reduction Employed: Automated exposure control(AEC) and iterative recon COMPARISON: MRI performed 01/16/2025. RESULT: Post-operative change: LEFT frontal parietal craniotomy with bony reactive change involving the frontal calvarium, LEFT greater than sphenoid and margins of the orbit. Small amount of extra-axial fluid underlying the craniotomy site which appears comparable to that seen on prior exam. Mildly increased mass effect on the LEFT frontal horn could be posttreatment related. Soft tissue/mildly increased attenuation extra-axial mass present centered along the LEFT greater than sphenoid appears comparable to that seen on previous MR imaging, intracranially measuring maximum diameter of approximately 1.4 AP by 2.6 transverse centimeters. Suggestion of mild intraorbital extension as well as extracranial extension into the adjacent dealer support technician space. Additional extension into the adjacent LEFT sphenoid sinus. Interval increase in vasogenic edema along the anterior superior LEFT frontal lobe with additional underlying extra-axial enhancement overlying the LEFT frontal region better visualized on previous MR imaging. Stable minimal midline shift towards the RIGHT. Complete opacification of LEFT frontal sinus and moderate mucosal thickening within the ethmoid air cells and posterior LEFT sphenoid sinus. Mild nonspecific white matter changes. Intracranial vascular calcifications. Mild volume loss. IMPRESSION: Postoperative changes as detailed above with increasing vasogenic edema within the anterior LEFT frontal lobe which could be posttreatment related. Mild increased mass effect on the LEFT frontal horn. ISN STAFF MESSAGE RESULTS Acuity: ISN Staff Message Result COMMUNICATION: The ordering provider will be notified of the results via Epic staff message or phone message by [facility] within 2 business days of report finalization. --END OF FINDING-- Inspector Material Disposition: TRAVIS Transcribe Date/Time: Mar 30 2025 5:50P Dictated by : ELAINA GARZON MD This examination was interpreted and the report reviewed and electronically signed by: ELAINA GARZON MD on Mar 30 2025 5:56PM EST [id number] [facility] Urinalysis complete panel (U )on 03-28-2025 Bacteria LM.HPF (Urine sed) [#/Area] Moderate Abnormal None Seen [facility] Comment on above: Order Comment: Speci men Type: URINE SPECIMEN [facility] Address: [address] [place] [address] Performed By: #### 2 4356-8 #### [facility] CLIA [id number] [address] [place] [address] [place] Bilirubin Ql (U) Negative Normal Negative [facility] Comment on above: Order Comment: Speci men Type: URINE SPECIMEN [facility] Address: [address] [place] [address] Performed By: #### 2 4356-8 #### [facility] CLIA [id number] [address] [place] [address] [facility] Clarity (Unsp spec) Cloudy Abnormal Clear [facility] Comment on above: Order Comment: Speci men Type: URINE SPECIMEN [facility] Address: [address] [place] [address] Performed By: #### 2 4356-8 #### [facility] CLIA [id number] [address] [place] [address] [facility] Color (U) Yellow Normal Yellow [facility] Comment on above: Order Comment: Speci men Type: URINE SPECIMEN [facility] Address: [address] [place] [address] Performed By: #### 2 4356-8 #### [facility] CLIA [id number] [address] [place] [address] [facility] Epithelial cells LM.HPF (Urine sed) [#/Area] Few Normal [facility] Comment on above: Order Comment: Speci men Type: URINE SPECIMEN [facility] Address: [address] [place] [address] Performed By: #### 2 4356-8 #### [facility] CLIA [id number] [address] [place] [address] [place] Glucose Test strip (U) [Mass/Vol] Negative Normal Negative [facility] Comment on above: Order Comment: Speci men Type: URINE SPECIMEN [facility] Address: [address] [place] [address] Performed By: #### 2 4356-8 #### [facility] CLIA [id number] [address] [place] [address] [place] Hemoglobin Ql (U) Negative Normal Negative [facility] Comment on above: Order Comment: Speci men Type: URINE SPECIMEN [facility] Address: [address] [place] [address] Performed By: #### 2 4356-8 #### [facility] CLIA [id number] [address] [place] [address] [place] Ketones Ql (U) Negative Normal Negative [facility] Comment on above: Order Comment: Speci men Type: URINE SPECIMEN [facility] Address: [address] [place] [address] Performed By: #### 2 4356-8 #### [facility] CLIA [id number] [address] [place] [address] [place] Leukocyte esterase Test strip Ql (U) 3+ Abnormal Negative [facility] Comment on above: Order Comment: Speci men Type: URINE SPECIMEN [facility] Address: [address] [place] [address] Performed By: #### 2 4356-8 #### [facility] CLIA [id number] [address] [place] [address] [place] Nitrite Ql (U) Negative Normal Negative [facility] Comment on above: Order Comment: Speci men Type: URINE SPECIMEN [facility] Address: [address] [place] [address] Performed By: #### 2 4356-8 #### [facility] CLIA [id number] [address] [place] [address] [place] pH (U) 6.0 [pH] Normal 5.0-8.0 [facility] Comment on above: Order Comment: Speci men Type: URINE SPECIMEN [facility] Address: [address] [place] [address] Performed By: #### 2 4356-8 #### [facility] CLIA [id number] [address] [place] [address] [facility] Protein (U) [Mass/Vol] Negative Normal Negative [facility] Comment on above: Order Comment: Speci men Type: URINE SPECIMEN [facility] Address: [address] [place] [address] Performed By: #### 2 4356-8 #### [facility] CLIA [id number] [address] [place] [id number] [place] RBC LM.HPF (Urine sed) [#/Area] 0-3 /HPF Normal 0-3 /HPF [facility] Comment on above: Order Comment: Speci men Type: URINE SPECIMEN [facility] Address: [address] [place] [address] Performed By: #### 2 4356-8 #### [facility] CLIA [id number] [address] [place], [place] [id number] [facility] Specific gravity (U) [Rel density] 1.015 Normal 1.005-1.030 [facility] Comment on above: Order Comment: Speci men Type: URINE SPECIMEN [facility] Address: [address] [place] [address] Performed By: #### 2 4356-8 #### [facility] CLIA [id number] [address] [place] [address] [facility] Urobilinogen Ql (U) 0.2 EU/dL Normal 0.2-1.0 EU/dL [facility] Comment on above: Order Comment: Speci men Type: URINE SPECIMEN [facility] Address: [address] [place] [address] Performed By: #### 2 4356-8 #### [facility] CLIA [id number] [address] [place] [id number] [facility] WBC LM.HPF (Urine sed) [#/Area] /[HPF] Abnormal 0-5 /HPF [facility] Comment on above: Order Comment: Speci men Type: URINE SPECIMEN [facility] Address: [address] [place] [address] Performed By: #### 2 4356-8 #### [facility] CLIA [id number] [address] [place] [address] [facility] 36on 03-26-2025 [address] [facility] 36 Name of caller: Cande lo Contact phone number: [phone] Relationship to Patient: [facility] Provider: Dr. Neville Practice: [facility] TERAN Chief Complaint/Reason for Call: Lilli called in regarding physical therapy referral they received for patient. States they don't have availability until next week and wanted to confirm that was ok. States they also need patient's last office visit notes and demographics including social faxed over. . Please Advise Best time of day caller can be reached: any Patient advised that office/PCP has 24-48 business hours to return their call: No [facility] 36on 03-25-2025 36 Called and spoke to daughter Trina. Patient had previously given permission to speak to daughter who helps coordinate patient's care and transportation, reviewed results of recent labs. Recommend patient follow-up with oncology and her neurologist. Begin physical therapy. Referral was previously placed. [facility] 36 Left message-not available. Will try again later today [facility] 36 Name of caller: Tisha shearer Contact phone number: [phone] Relationship to Patient: family member patient and daughter Provider: Dr. Neville Practice: [facility]ath[facility] TERAN Chief Complaint/Reason for Call: Trina requesting a call back to discuss patients results. Did not release information to Trina as she is not on new communication form. Please advise. Best time of day caller can be reached: any Patient advised that office/PCP has 24-48 business hours to return their call: Yes [facility] CBC W Auto Differential pane l (Bld)on 03-25-2025 Basophils (Bld) [#/Vol] 38 10*3/uL [facility] Basophils/100 WBC (Bld) 0.6 % [facility] Eosinophils (Bld) [#/Vol] 221 10*3/uL [facility] Eosinophils/100 WBC (Bld) 3.5 % [facility] Erythrocyte distribution width (RBC) [Ratio] 13 % 11.0 - 15.0 % [facility] Hematocrit (Bld) [Volume fraction] 39.5 % 35.0 - 45.0 % [facility] Hemoglobin (Bld) [Mass/Vol] 13.1 g/dL 11.7 - 15.5 g/dL [facility] Lymphocytes (Bld) [#/Vol] 781 10*3/uL Low [facility] Lymphocytes/100 WBC (Bld) 12.4 % [facility] MCH (RBC) [Entitic mass] 31.1 pg 27.0 - 33.0 pg [facility] MCHC (RBC) [Mass/Vol] 33.2 g/dL 32.0 - 36.0 g/dL [facility] Comment on above: For adults, a slight decrease in the calculated MCHC value (in the range of 30 to 32 g/dL) is most likely not clinically significant; however, it should be interpreted with caution in correlation with other red cell parameters and the patient's clinical condition. MCV (RBC) [Entitic vol] 93.8 fL 80.0 - 100.0 fL [facility] Monocytes (Bld) [#/Vol] 491 10*3/uL [facility] Monocytes/100 WBC (Bld) 7.8 % [facility] Neutrophils (Bld) [#/Vol] 4769 10*3/uL [facility] Neutrophils/100 WBC (Bld) 75.7 % [facility] Platelet mean volume (Bld) [Entitic vol] 9.7 fL 7.5 - 12.5 fL [facility] Platelets (Bld) [#/Vol] 236 10*3/uL [facility] RBC (Bld) [#/Vol] 4.21 10*6/uL [facility] WBC (Bld) [#/Vol] 6.3 10*3/uL [facility] Telephone (NEAGCLM) RESHMA EVANS ([id number]) 1940 F Date Time Provider Department 03/25/25 NEYMAR JERONIMOAGCMADISON During your visit today, we recorded the following information about you: Karli Cox, ZOHREH 03/25/2025 11:18 AM Signed Patient's daughter Trina called in. They've noticed these changes after radiation - radiation completed 02/25/2025. They noticed her energy has decreased since then. A week ago Monday she started having more weakness. She stated last week she had an episode of weakness, trouble getting out of bed, no strength, no energy, once they got her out of bed she was able to walk with rollator. Her found her one day of the ground next to the bed, she was stretching but when asked why she was on the ground she said I dont know and she couldn't remember if she fell or not. She has been having episodes of confusion, weakness, and confusion. They were concerned and wanted to call in. They said she has been saying I don't know I'm so confused She saw her PCP yesterday who did they blood work, and recommended to do physical therapy. I asked if they did a urine culture - her daughter was not sure if they did a urine. I recommended she get a urine sample done to rule out a UTI. They are waiting for PCP to call back with blood work results. I told Trina I would discuss with with Dr. Jeronimo and get back to her. ZOHREH Spear Lena, ZOHREH 03/25/2025 5:01 PM Signed Called patient's daughter, she stated that Reshma's PCP stated her labs were fine, but they did not order a UA. I told her we can order a UA and UC to see how her urine looks. I told them they could go to any F lab to get these done. I told her as well that Dr Jeronimo said we can do a CT brain on Reshma to rule out anything due to her new confusion and weakness. Let Trina know I would have someone call her to get this scheduled. She is aware that we can move up the MRI to April depending on the CT scan and how Reshma is doing. Trina was very appreciative of all the help today. 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 - primidone (MYSOLINE) 50 mg tablet Take 2 tablets by mouth daily at bedtime for 7 days. Take until the script from express script comes in - propranolol (INDERAL) 10 mg tablet Take 1 tablet by mouth two times a day for 30 days, THEN 0.5 tablets two times a day. Then Stop.. - primidone (MYSOLINE) 50 mg tablet Take 2 tablets by mouth daily at bedtime. - levETIRAcetam (KEPPRA) 750 mg tablet Take 2 tablets by mouth two times a day. - iv contrast (will be provided with radiology test) MRI Brain Inject, intravenously, once for 1 dose.No IV access, insert saline lock prior to beginning of sedation, infusion, injection of imaging exam.Discontinue saline lock post exam. If Pt. has a central line or IVAD, may access for administration according to line specific nursing protocol.Once exam is complete flush line and de-access according to line specific nursing protocol in the MR contrast administration guidelines link - iv contrast (will be provided with radiology test) MRI Brain Localization Inject, intravenously, once for 1 dose.No IV access, insert saline lock prior to beginning of sedation, infusion, injection of imaging exam.Discontinue saline lock post exam. If Pt. has a central line or IVAD, may access for administration according to line specific nursing protocol.Once exam is complete flush line and de-access according to line specific nursing protocol in the MR contrast administration guidelines link - rosuvastatin (CRESTOR) 10 mg tablet Take 1 tablet by mouth once daily. - acetaminophen (TYLENOL) 500 mg tablet 2 tablets by ORAL/FEEDING TUBE route every 6 hours. - fluorometholone (FML LIQUID FILM) 0.1 % ophthalmic suspension Use 1 Drop in the left eye two times a day. - gabapentin (NEURONTIN) 100 mg capsule Take 100 mg by mouth two times a day. Problem List As Of Date 03/25/2025 Noted Resolved Benign neoplasm of cerebral meninges [D32.0] 10/05/2010 SDH (subdural hematoma) (HCC) [S06.5XAA] 02/13/2024 Trauma [T14.90XA] 02/14/2024 F (more content not included)... Normal [facility] Comprehensive metabolic 1998 panelon 03-25-2025 Albumin [Mass/Vol] 3.9 g/dL 3.6 - 5.1 g/dL [facility] Albumin/Globulin [Mass ratio] 1.4 {ratio} [facility] ALP [Catalytic activity/Vol] 52 U/L 37 - 153 U/L [facility] ALT [Catalytic activity/Vol] 7 U/L 6 - 29 U/L [facility] AST [Catalytic activity/Vol] 11 U/L 10 - 35 U/L [facility] Bilirubin [Mass/Vol] 0.4 mg/dL 0.2 - 1 .2 mg/dL [facility] Calcium [Mass/Vol] 9.4 mg/dL 8.6 - 10. 4 mg/dL [facility] [employer] Chloride [Moles/Vol] 103 mmol/L 98 - 11 0 mmol/L [facility] CO2 [Moles/Vol] 31 mmol/L 20 - 32 mmol/L [facility] Creatinine [Mass/Vol] 0.87 mg/dL 0.60 - 0.95 mg/dL [facility] GFR/1.73 sq M.predicted among non-blacks MDRD (S/P/Bld) [Vol rate/Area] 65 mL/min/{1.73_m2} > OR = 60 mL/min/1.73m 2 [facility] Globulin (S) [Mass/Vol] 2.8 g/dL [facility] Glucose [Mass/Vol] 139 mg/dL High 65 - 99 mg/dL [facility] Comment on above: Fasting reference interval For someone without known diabetes, a glucose value >125 mg/dL indicates that they may have diabetes and this should be confirmed with a follow-up test. Potassium [Moles/Vol] 4.1 mmol/L 3.5 - 5.3 mmol/L [facility] Protein [Mass/Vol] 6.7 g/dL 6.1 - 8.1 g/dL [facility] Sodium [Moles/Vol] 142 mmol/L 135 - 146 mmol/L [facility] Urea nitrogen [Mass/Vol] 13 mg/dL 7 - 25 mg/dL [facility] Urea nitrogen/Creatinine [Mass ratio] SEE NOTE: [facility] Comment on above: Not Reported: BUN an d Creatinine are within reference range. Laboratory - Chemistry and C hemistry - challengeon 03-25-2025 TSH Qn 3.53 m[IU]/L [facility] Laboratory - Hematology and Cell countson 03-25-2025 HbA1c (Bld) [Mass fraction] 6.2 % High NINF - 5.7 % [facility] Comment on above: For someone without known diabetes, a hemoglobin A1c value between 5.7% and 6.4% is consistent with prediabetes and should be confirmed with a follow-up test. For someone with known diabetes, a value <7% indicates that their diabetes is well controlled. A1c targets should be individualized based on duration of diabetes, age, comorbid conditions, and other considerations. This assay result is consistent with an increased risk of diabetes. Currently, no consensus exists regarding use of hemoglobin A1c for diagnosis of diabetes for children. No Panel Informationon 03-25 Interpretation and review of laboratory results Abnormal [facility] 29on 03-24-2025 29 Addended by: LASHAUN SPIVEY on: 03/25/2025 04:11 PM Modules accepted: Level of Service Normal [facility] 36on 03-24-2025 36 S: Patient's spouse spoke with [facility] nurse regarding patient's weak B: Onset of symptoms/concern several weeks A: Patient is weak, fallen several times. Patient is eating and drinking. Patient had radiation treatments following surgery. Spouse is seeking an appointment to have patient checked out. Patient denies flu/covid sx, has not tested for either. R: Patient scheduled for OV today with Judie Spivey CNP at 10:40 am. Insurance verified. Patient instructed to arrive 15 minutes prior to appointment, bring photo ID, insurance cards, copayment if required. Patient understands home care advice. Patient instructed to call back with new or worsening symptoms. Reason for Disposition MODERATE weakness (e.g., interferes with work, school, normal activities) and cause unknown (Exceptions: Weakness from acute minor illness or from poor fluid intake; weakness is chronic and not worse.) Protocols used: Weakness (Generalized) and [id number] Normal [facility] Office Visiton 03-24-2025 Follow-up visit [id number] Reshma Evans 1940 F Date Provider Department Center 03/24/2025 LASHAUN LORENZANA [facility] Family History Problem Relation Age of Onset No Known Problems Mother No Known Problems Father High Blood Pressure Brother High Blood Pressure Sister Family Status - Relation Status Age at Mother Father Brother Sister Level of Service:84575 ME OFFICE/OUTPATIENT ESTABLISHED MOD MDM 30 MIN Reason for Visit and Comments: Weakness, Gen [012052] Extremity Weakness [009025] Shaking [665055] Fall [097399] Normal [facility] Progress Noteon 03-24-2025 Progress Note Unsure etiology. Figueroa s have some generalized weakness. Will check labs. Follow-up with neurologist as directed, will start home physical therapy for strength training Normal [facility] Progress Note Controlled, continue gabapentin 100 mg twice daily [facility] Progress Note Check hemoglobin A1c. Normal [facility] Progress Note 03/24/2025 Reshma R Brielleayo (: 1940) is a 84 y.o. female , Established patient, here for evaluation of the following chief complaint(s): Weakness, Gen; Extremity Weakness; Shaking; and Fall ASSESSMENT/PLAN: 1. Weakness of both legs Assessment & Plan: Unsure etiology. Does have some generalized weakness. Will check labs. Follow-up with neurologist as directed, will start home physical therapy for strength training Orders: - Comprehensive metabolic panel - CBC auto differential - TSH - [facility] 2. Type 2 diabetes mellitus with hyperlipidemia (HCC) Assessment & Plan: Check hemoglobin A1c. Orders: - Hemoglobin A1c 3. Neuropathy Assessment & Plan: Controlled, continue gabapentin 100 mg twice daily Follow up for as directed pending test results. SUBJECTIVE/OBJECTIVE: AMADOU - Reshma Evans (: 1940) is a 84 y.o. female , Established patient, here for the evaluation of the following chief complaint(s): Weakness, Gen; Extremity Weakness; Shaking; and Fall Presents with son in law. (Trina- old est daughter) For increased falls and weakness. Reports having weakness, shaking and falls at home. Had fallen last week out of the recliner (slid out of it). PENNY worried that she may not be eating well. No loss of conscioiiusness. Patient reports her symptoms have been gradually worsening. She does see neurology for seizure disorder and history of intracranial meningioma. She had brain surgery earlier this year and follows with oncology for radiation therapy and neurology. She sees radiology oncology on April 02, 2025 and her neurosurgeon on June 02, 2025. She is not getting any physical therapy at home. She is using a front wheel walker consistently. Family is helping with medications. Using a med box reminder. She has not had any labs done in quite some time. Diabetes-previously very well-controlled her hemoglobin A1c was less than 6 in April 2024. Current Medications[1] Review of Systems Constitutional: Positive for activity change and fatigue. Negative for appetite change and fever. HENT: Negative. Respiratory: Negative. Cardiovascular: Negative. Musculoskeletal: Negative. Neurological: Positive for weakness (mostly in her legs). Negative for dizziness, seizures, speech difficulty, light-headedness and headaches. Vitals: 03/24/25 1051 BP: 116/67 Pulse: 90 Resp: 24 Temp: 37.2 ?C (99 ?F) TempSrc: Infrared SpO2: 92% Weight: 184 lb (83.5 kg) Physical Exam Constitutional: General: She is not in acute distress. Appearance: She is not ill-appearing. Comments: Using front wheel walker. Get up and go less than 20, gait steady with walker HENT: Head: Normocephalic and atraumatic. Ears: Comments: Bilateral hearing loss Mouth/Throat: Mouth: Mucous membranes are moist. Pharynx: Oropharynx is clear. Eyes: Comments: She does have some periorbital swelling noted over the left eye-reports this is unchanged since her brain surgery earlier this year. Musculoskeletal: Comments: Push pull 4 out of 5 lower extremities bilaterally. 4 out of 5 upper right extremity push pull. 4 out of 5 pull on left upper extemity. Limited strength upper extremity push on the left. Grasp equal bilateral Neurological: Mental Status: She is alert. An electronic signature was used to authenticate this note. Lashaun Spivey APRN - NELLY 03/24/2025 4:54 PM [1] Current Outpatient Medications Medication Sig Dispense Refill acetaminophen (Tylenol) 500 MG tablet 1,000 mg by Enteral route 4 times a day. ascorbic acid (Vitamin C) 500 MG tablet Take 500 mg by mouth daily. Cyanocobalamin (Vitamin B-12) [address] under the tongue. fluorometholone (FML) 0.1 % ophthalmic suspension INSTILL 1 DROP INTO LEFT EYE TWICE DAILY gabapentin (Neurontin) 100 MG capsule TAKE 1 CAPSULE TWICE A DAY 180 capsule 3 levETIRAcetam (Keppra) 750 MG tablet Take 2 tablets (1,500 mg) by mouth daily. 180 tablet 1 Multiple Vitamin (multivitamin) capsule Take 1 capsule by mouth daily. nystatin (Mycostatin) 185801 UNIT/GM powder Apply topically three times daily. 30 g 0 omega-3 (Fish Oil) 1000 MG capsule Take 3,000 mg by mouth. pantoprazole (ProtoNix) 40 MG EC tablet Take 40 mg by mouth. propranolol (Inderal) 10 MG tablet TAKE ONE AND ONE-HALF TABLETS TWICE A DAY 270 tablet 3 rosuvastatin (Crestor) 10 MG tablet TAKE 1 TABLET DAILY 90 tablet 1 triamcinolone (Kenalog) 0.5 % cream Apply topically 3 times daily. 30 g 0 VITAMIN D PO Take by mouth. vitamin E 180 MG (400 UNIT) capsule Take 180 mg by mouth daily. No current facility-administered medications for this visit. [facility] CNOVon 02-25-2025 CNOV Office Visit (RADTWS ) PRISCILARESHMA MAI ([id number]) 1940 F Date Time Provider Department 02/25/25 10:45 AM LINDA MCKEON RADTWS During your visit today, we recorded the following information about you: Temperature Pulse Blood pressure 98.8 degrees 75/minute 100/66 Ofelia Bean RN 02/25/2025 11:12 AM Signed Radiation Therapy - Nursing Note (OTV) PATIENT NAME: Reshma Evans PATIENT February 25, 2025 [facility] FACILITY/LOCATION: [place] NURSING NOTE TYPE: DIAMOND GRADER Subjective Data Still has occasional headache at night but not bad: Additional Data Do you want to see a Metal Tile Lather? No Status: Post-menopausal. Stress Scale: On a scale of 0 to 10, what number best describes how much distress you have experienced in the past week?(0 being no distress and 10 being extreme distress) 3 Social work notified: Pt denied need to see social work case manager at this time. Nursing Assessment Fatigue: none Appetite: good Nutritional Intake: Regular oral intake. Weight Gain/Loss: Not applicable Ambulatory weight history: Last 6 Encounter Wt Readings: Date: Wt: 01/21/2025 85.9 kg (189 lb 6 oz) 01/16/2025 77.6 kg (171 lb) 12/26/2024 84.8 kg (187 lb) 11/04/2024 83.2 kg (183 lb 6.8 oz) 08/01/2024 82.4 kg (181 lb 10.5 oz) 08/01/2024 82.4 kg (181 lb 10.5 oz) Nausea:None Vomiting: None Bowel Function: normal bowel movements Erythema/Hyperpigmentat ion:some redness above left eye Desquamation:none Rash:none Skin Care: Aquaphor Skin Sensation: Within Normal Limits Focused Assessment DIAMOND GRADER: Alopecia: no. Headache: mild. Vision changes: no changes. Arm/leg numbness: none. Limb coordination: none. Memory changes: yes per - son reported this. Syncope: none. Disorientation: none. Seizures: none. Hearing changes: No.- Son states pts hearing does seem to be worse and discussed with Dr Mckeon last week, encouraged to discusse again SIGNED by: ZOHREH Stern Daesung, MD 02/25/2025 11:12 AM Signed Radiation Oncology - On Treatment Review (OTR) Note PATIENT NAME: Reshma Evans PATIENT DIAGNOSIS: 1. 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 2. 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 EXAM: KPS: 90 General Appearance: Alert and oriented. No acute distress. Radiation dermatitis: No IMAGING/LAB RESULTS: None Treatment chart checked: Yes Patient treatment site reviewed and verified:Yes CBCTs reviewed and current:Yes Medications started: None ASSESSMENT/PLAN: Clinically stable. Side effects within expected parameters. Regarding her hearing, I recommended hearing tests. She and her son will contact her PCP to arrange it. She finished radiation treatment as planned today. Follow-up in 4 weeks. Linda Mckeon MD Allergies As of Date: 02/25/2025 (No Known Allergies) Date Reviewed: 02/19/2025 Reviewed by: Theodora Gaona RN - Fully Assessed Reason for Visit: Radiotherapy On-treatment Visit [1722] Primary Visit Diagnosis:Intracranial meningioma (HCC) [D32.0] Prescriptions as of 02/25/2025 - solifenacin (VESICARE) 10 mg tablet Take 5 mg by mouth once daily. - primidone (MYSOLINE) 50 mg tablet Take 2 tablets by mouth daily at bedtime for 7 days. Take until the script from express script comes in - propranolol (INDERAL) 10 mg tablet Take 1 tablet by mouth two times a day for 30 days, THEN 0.5 tablets two times a day. Then Stop.. - primidone (MYSOLINE) 50 mg tablet Take 2 tablets by mouth daily at bedtime. - levETIRAcetam (KEPPRA) 750 mg tablet Take 2 tablets by mouth two times a day. - iv contrast (will be provided with radiology test) MRI Brain Inject, intravenously, once for 1 dose.No IV access, insert saline lock prior to beginning of sedation, infusion, injection of imaging exam.Discontinue saline lock post exam. If Pt. has a central line or IVAD, may access for administration according to line specific nursing protocol.Once exam is complete flush line and de-access according to line specific nursing protocol in the MR contrast administration guidelines link - iv contrast (will be provided with radiology test) MRI Brain Localization Inject, intravenously, once for 1 dose.No IV access, insert saline lock prior to beginning of sedation, infusion, injection of imaging exam.Discontinue saline lock post exam. If Pt. has a central line or IVAD, may access for administration according to line specific nursing protocol.Once exam is comple (more content not included)... Normal [facility] CNOVon 02-19-2025 CNOV Office Visit (RADTWS ) NATHANRESHMA Cottrell ([id number]) 1940 F Date Time Provider Department 02/19/25 10:45 AM LINDA MCKEON RADTWS During your visit today, we recorded the following information about you: Temperature Pulse Respiration Blood pressure 99 degrees 84/minute 18/minute 125/80 Linda Mckeon MD 02/19/2025 11:13 AM Signed Radiation Oncology - On Treatment Review (OTR) Note PATIENT NAME: Reshma Evans PATIENT DIAGNOSIS: 1. 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 2. 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 EXAM: KPS: 90 General Appearance: Alert and oriented. No acute distress. Radiation dermatitis: No IMAGING/LAB RESULTS: None Treatment chart checked: Yes Patient treatment site reviewed and verified:Yes CBCTs reviewed and current:Yes Medications started: None ASSESSMENT/PLAN: Clinically stable. Side effects within expected parameters. Regarding her hearing, I recommended hearing tests. She and her son will contact her PCP. Continue radiation treatment as planned. MD Nicholas Avendano Kayla, RN 02/19/2025 11:13 AM Signed Radiation Therapy - Nursing Note (OTV) PATIENT NAME: Reshma Evans PATIENT February 19, 2025 [facility] FACILITY/LOCATION: [facility] NOTE TYPE: DIAMOND GRADER Subjective Data C/o hard time hearing Additional Data Do you want to see a Metal Tile Lather? No Status: Post-menopausal. Stress Scale: On a scale of 0 to 10, what number best describes how much distress you have experienced in the past week?(0 being no distress and 10 being extreme distress) 4 Social work notified: Pt denied need to see social work case manager at this time. Nursing Assessment Fatigue: moderate; causing difficulty performing some activities Appetite: excellent Nutritional Intake: Regular oral intake. Weight Gain/Loss: Not applicable Ambulatory weight history: Last 6 Encounter Wt Readings: Date: Wt: 01/21/2025 85.9 kg (189 lb 6 oz) 01/16/2025 77.6 kg (171 lb) 12/26/2024 84.8 kg (187 lb) 11/04/2024 83.2 kg (183 lb 6.8 oz) 08/01/2024 82.4 kg (181 lb 10.5 oz) 08/01/2024 82.4 kg (181 lb 10.5 oz) Nausea:None Vomiting: None Bowel Function: normal bowel movements Erythema/Hyperpigmentat ion:none Desquamation:none Rash:none Skin Care: Aquaphor Skin Sensation: Within Normal Limits Focused Assessment DIAMOND GRADER: Alopecia: no. Headache: none. Vision changes: mild. Arm/leg numbness: none. Limb coordination: none. Memory changes: none. Syncope: none. Disorientation: none. Seizures: none. Hearing changes: Yes both ears, noticed is about last week. Vision changes- left eye moderately blurred SIGNED by: Theodora Gaona RN Allergies As of Date: 02/19/2025 (No Known Allergies) Date Reviewed: 02/19/2025 Reviewed by: Theodora Gaona RN - Fully Assessed Reason for Visit: Radiotherapy On-treatment Visit [1722] Primary Visit Diagnosis:Intracranial meningioma (HCC) [D32.0] Prescriptions as of 02/19/2025 - solifenacin (VESICARE) 10 mg tablet Take 5 mg by mouth once daily. - primidone (MYSOLINE) 50 mg tablet Take 2 tablets by mouth daily at bedtime for 7 days. Take until the script from express script comes in - propranolol (INDERAL) 10 mg tablet Take 1 tablet by mouth two times a day for 30 days, THEN 0.5 tablets two times a day. Then Stop.. - primidone (MYSOLINE) 50 mg tablet Take 2 tablets by mouth daily at bedtime. - levETIRAcetam (KEPPRA) 750 mg tablet Take 2 tablets by mouth two times a day. - iv contrast (will be provided with radiology test) MRI Brain Inject, intravenously, once for 1 dose.No IV access, insert saline lock prior to beginning of sedation, infusion, injection of imaging exam.Discontinue saline lock post exam. If Pt. has a central line or IVAD, may access for administration according to line specific nursing protocol.Once exam is complete flush line and de-access according to line specific nursing protocol in the MR contrast administration guidelines link - iv contrast (will be provided with radiology test) MRI Brain Localization Inject, intravenously, once for 1 dose.No IV access, insert saline lock prior to beginning of sedation, infusion, injection of imaging exam.Discontinue saline lock post exam. If Pt. has a central line or IVAD, may access for administration according to line specific nursing protocol.Once exam is complete flush line and de-access according to line specific nursing protocol in the MR contrast (more content not included)... Normal [facility] CNOVon 02-11-2025 CNOV Office Visit (RADTWS ) BRIELLERESHMA HOUSTON ([id number]) 1940 F Date Time Provider Department 02/11/25 10:45 AM LINDA MCKEON During your visit today, we recorded the following information about you: Temperature Pulse Blood pressure 99 degrees 67/minute 105/70 Ofelia Bean RN 02/11/2025 11:12 AM Signed Radiation Therapy - Nursing Note (OTV) PATIENT NAME: Reshma Evans PATIENT February 11, 2025 [facility] FACILITY/LOCATION: [place] NURSING NOTE TYPE: DIAMOND GRADER Subjective Data occasional headache at night takes one tylenol that help Additional Data Do you want to see a Metal Tile Lather? No Status: Post-menopausal. Stress Scale: On a scale of 0 to 10, what number best describes how much distress you have experienced in the past week?(0 being no distress and 10 being extreme distress) 4 Social work notified: Pt denied need to see social work case manager at this time. Nursing Assessment Fatigue: increased fatigue over baseline but not altering normal activities Appetite: good Nutritional Intake: Regular oral intake. Weight Gain/Loss: Not applicable Ambulatory weight history: Last 6 Encounter Wt Readings: Date: Wt: 01/21/2025 85.9 kg (189 lb 6 oz) 01/16/2025 77.6 kg (171 lb) 12/26/2024 84.8 kg (187 lb) 11/04/2024 83.2 kg (183 lb 6.8 oz) 08/01/2024 82.4 kg (181 lb 10.5 oz) 08/01/2024 82.4 kg (181 lb 10.5 oz) Nausea:None Vomiting: None Bowel Function: normal bowel movements Erythema/Hyperpigmentat ion:none Desquamation:none Rash:none Skin Care: Aquaphor Skin Sensation: Within Normal Limits Focused Assessment DIAMOND GRADER: Alopecia: no. Headache: mild. Vision changes: none. Arm/leg numbness: none. Limb coordination: none. Memory changes: none. Syncope: none. Disorientation: none. Seizures: none. Hearing changes: No. No new DIAMOND GRADER issues SIGNED by: ZOHREH Stern Daesung, MD 02/11/2025 11:12 AM Signed Radiation Oncology - On Treatment Review (OTR) Note PATIENT NAME: Rehsma Evans PATIENT DIAGNOSIS: 1. 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 2. 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 EXAM: KPS: 90 General Appearance: Alert and oriented. No acute distress. Radiation dermatitis: No IMAGING/LAB RESULTS: None Treatment chart checked: Yes Patient treatment site reviewed and verified:Yes CBCTs reviewed and current:Yes Medications started: None ASSESSMENT/PLAN: Clinically stable. Side effects within expected parameters. Continue radiation treatment as planned. Linda Mckeon MD Allergies As of Date: 02/11/2025 (No Known Allergies) Date Reviewed: 02/11/2025 Reviewed by: Ofelia Bean RN - Fully Assessed Reason for Visit: Radiotherapy On-treatment Visit [1722] Primary Visit Diagnosis:Intracranial meningioma (HCC) [D32.0] Prescriptions as of 02/11/2025 - solifenacin (VESICARE) 10 mg tablet Take 5 mg by mouth once daily. - primidone (MYSOLINE) 50 mg tablet Take 2 tablets by mouth daily at bedtime for 7 days. Take until the script from express script comes in - propranolol (INDERAL) 10 mg tablet Take 1 tablet by mouth two times a day for 30 days, THEN 0.5 tablets two times a day. Then Stop.. - primidone (MYSOLINE) 50 mg tablet Take 2 tablets by mouth daily at bedtime. - levETIRAcetam (KEPPRA) 750 mg tablet Take 2 tablets by mouth two times a day. - iv contrast (will be provided with radiology test) MRI Brain Inject, intravenously, once for 1 dose.No IV access, insert saline lock prior to beginning of sedation, infusion, injection of imaging exam.Discontinue saline lock post exam. If Pt. has a central line or IVAD, may access for administration according to line specific nursing protocol.Once exam is complete flush line and de-access according to line specific nursing protocol in the MR contrast administration guidelines link - iv contrast (will be provided with radiology test) MRI Brain Localization Inject, intravenously, once for 1 dose.No IV access, insert saline lock prior to beginning of sedation, infusion, injection of imaging exam.Discontinue saline lock post exam. If Pt. has a central line or IVAD, may access for administration according to line specific nursing protocol.Once exam is complete flush line and de-access according to line specific nursing protocol in the MR contrast administration guidelines link - rosuvastatin (CRESTOR) 10 mg tablet Take 1 tablet by mouth once da (more content not included)... Normal [facility] XR SACRUM/COCCYX 3V AP/LATon 02-11-2025 XR SACRUM/COCCYX 3V AP/LAT * * *Final Report* * * DATE OF EXAM: Feb 11 2025 11:29AM [id number] - XR SACRUM/COCCYX 3V AP/LAT / PROCEDURE REASON: pain * * * * Physician Interpretation * * * * EXAMINATION / TECHNIQUE: XR SACRUM/COCCYX 3V AP/LAT HISTORY: PT STATES SOME TAILBONE PAIN GETTING BETTER pain COMPARISON: 02/13/2024. RESULT: See Impression IMPRESSION: No fracture or dislocation. 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 Lower lumbar degenerative changes. Inspector Material Disposition: PSCB Transcribe Date/Time: Feb 18 2025 8:03P Dictated by : CHARLY VILLARREAL MD This examination was interpreted and the report reviewed and electronically signed by: CHARLY VILLARREAL MD on Feb 18 2025 8:03PM EST [id number] Normal [facility] CNOVon 02-04-2025 CNOV Office Visit (RADTWS ) RESHMA EVANS ([id number]) 1940 F Date Time Provider Department 02/04/25 10:45 AM LINDA MCKEON During your visit today, we recorded the following information about you: Temperature Pulse Respiration Blood pressure 99 degrees 85/minute 16/minute 115/74 Theodora Gaona RN 02/04/2025 11:02 AM Signed Radiation Therapy - Nursing Note (OTV) PATIENT NAME: Reshma Evans PATIENT February 04, 2025 [facility] FACILITY/LOCATION: [place] NURSING NOTE TYPE: DIAMOND GRADER Subjective Data I'm having some dizziness when I lay down just for a few seconds. Additional Data Do you want to see a Metal Tile Lather? No Status: Post-menopausal. Stress Scale: On a scale of 0 to 10, what number best describes how much distress you have experienced in the past week?(0 being no distress and 10 being extreme distress) 2 Social work notified: Pt denied need to see social work case manager at this time. Nursing Assessment Fatigue: none Appetite: good Nutritional Intake: Regular oral intake. Weight Gain/Loss: Not applicable Ambulatory weight history: Last 6 Encounter Wt Readings: Date: Wt: 01/21/2025 85.9 kg (189 lb 6 oz) 01/16/2025 77.6 kg (171 lb) 12/26/2024 84.8 kg (187 lb) 11/04/2024 83.2 kg (183 lb 6.8 oz) 08/01/2024 82.4 kg (181 lb 10.5 oz) 08/01/2024 82.4 kg (181 lb 10.5 oz) Nausea:None Vomiting: None Bowel Function: normal bowel movements Erythema/Hyperpigmentat ion:none Desquamation:none Rash:none Skin Care: Aquaphor Skin Sensation: Within Normal Limits Focused Assessment DIAMOND GRADER: Alopecia: no. Headache: none. Vision changes: none. Arm/leg numbness: none. Limb coordination: none. Memory changes: none. Syncope: none. Disorientation: none. Seizures: none. Hearing changes: No. and c/o dizziness in the last couple weeks when laying down during radiation for only a quick second SIGNED by: ZOHREH Mejias Daesung, MD 02/04/2025 11:02 AM Signed Radiation Oncology - On Treatment Review (OTR) Note PATIENT NAME: Reshma Evans PATIENT DIAGNOSIS: 1. 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 2. 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 EXAM: KPS: 90 General Appearance: Alert and oriented. No acute distress. Radiation dermatitis: No IMAGING/LAB RESULTS: None Treatment chart checked: Yes Patient treatment site reviewed and verified:Yes CBCTs reviewed and current:Yes Medications started: None ASSESSMENT/PLAN: Clinically stable. No significant treatment-related side effects. Continue radiation treatment as planned. Linda Mckeon MD Allergies As of Date: 02/04/2025 (No Known Allergies) Date Reviewed: 02/04/2025 Reviewed by: Theodora Gaona RN - Fully Assessed Reason for Visit: Radiotherapy On-treatment Visit [1722] Primary Visit Diagnosis:Intracranial meningioma (HCC) [D32.0] Prescriptions as of 02/04/2025 - primidone (MYSOLINE) 50 mg tablet Take 2 tablets by mouth daily at bedtime for 7 days. Take until the script from express script comes in - propranolol (INDERAL) 10 mg tablet Take 1 tablet by mouth two times a day for 30 days, THEN 0.5 tablets two times a day. Then Stop.. - primidone (MYSOLINE) 50 mg tablet Take 2 tablets by mouth daily at bedtime. - levETIRAcetam (KEPPRA) 750 mg tablet Take 2 tablets by mouth two times a day. - iv contrast (will be provided with radiology test) MRI Brain Inject, intravenously, once for 1 dose.No IV access, insert saline lock prior to beginning of sedation, infusion, injection of imaging exam.Discontinue saline lock post exam. If Pt. has a central line or IVAD, may access for administration according to line specific nursing protocol.Once exam is complete flush line and de-access according to line specific nursing protocol in the MR contrast administration guidelines link - iv contrast (will be provided with radiology test) MRI Brain Localization Inject, intravenously, once for 1 dose.No IV access, insert saline lock prior to beginning of sedation, infusion, injection of imaging exam.Discontinue saline lock post exam. If Pt. has a central line or IVAD, may access for administration according to line specific nursing protocol.Once exam is complete flush line and de-access according to line specific nursing protocol in the MR contrast administration guidelines link - rosuvastatin (CRESTOR) 10 mg tablet Take 1 tablet by mouth once daily. - acet (more content not included)... Normal [facility] CNOVon 01-28-2025 CNOV Office Visit (RADTWS ) NATHANRESHMA ([id number]) 1940 F Date Time Provider Department 01/28/25 10:45 AM LINDA MCKEONTCHRISTEN During your visit today, we recorded the following information about you: Temperature Pulse Blood pressure 99 degrees 65/minute 149/79 Ofelia Bean, RN 01/28/2025 11:07 AM Signed Radiation Therapy - Nursing Note (OTV) PATIENT NAME: Reshma Evans PATIENT January 28, 2025 [facility] FACILITY/LOCATION: [place] NURSING NOTE TYPE: DIAMOND GRADER Subjective Data no complaints Additional Data Do you want to see a Metal Tile Lather? No Status: Post-menopausal. Stress Scale: On a scale of 0 to 10, what number best describes how much distress you have experienced in the past week?(0 being no distress and 10 being extreme distress) 5 Social work notified: Pt denied need to see social work case manager at this time. Nursing Assessment Fatigue: none Appetite: good Nutritional Intake: Regular oral intake. Weight Gain/Loss: Not applicable Ambulatory weight history: Last 6 Encounter Wt Readings: Date: Wt: 01/21/2025 85.9 kg (189 lb 6 oz) 01/16/2025 77.6 kg (171 lb) 12/26/2024 84.8 kg (187 lb) 11/04/2024 83.2 kg (183 lb 6.8 oz) 08/01/2024 82.4 kg (181 lb 10.5 oz) 08/01/2024 82.4 kg (181 lb 10.5 oz) Nausea:None Vomiting: None Bowel Function: normal bowel movements Erythema/Hyperpigmentat ion:none Desquamation:none Rash:none Skin Care: Aquaphor Skin Sensation: Within Normal Limits Focused Assessment DIAMOND GRADER: Alopecia: no. Headache: none. Vision changes: see Dr Matson for check up. Arm/leg numbness: none. Limb coordination: none. Memory changes: mild. Syncope: none. Disorientation: none. Seizures: none. Hearing changes: No. SIGNED by: ZOHREH Stern Daesung, MD 01/28/2025 11:07 AM Signed Radiation Oncology - On Treatment Review (OTR) Note PATIENT NAME: Reshma Evans PATIENT DIAGNOSIS: 1. 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 2. 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 She continues to have hyper-tearing of the left eye since her surgery last year without significant changes. She is scheduled to see her housekeeping associate tomorrow. EXAM: KPS: 90 General Appearance: Alert and oriented. No acute distress. Radiation dermatitis: No IMAGING/LAB RESULTS: None Treatment chart checked: Yes Patient treatment site reviewed and verified:Yes CBCTs reviewed and current:Yes Medications started: None ASSESSMENT/PLAN: Clinically stable. No significant treatment-related side effects. Continue radiation treatment as planned. Linda Mckeon MD Allergies As of Date: 01/28/2025 (No Known Allergies) Date Reviewed: 01/28/2025 Reviewed by: Ofelia Bean RN - Fully Assessed Reason for Visit: Radiotherapy On-treatment Visit [1722] Primary Visit Diagnosis:Intracranial meningioma (HCC) [D32.0] Prescriptions as of 01/28/2025 - primidone (MYSOLINE) 50 mg tablet Take 2 tablets by mouth daily at bedtime for 7 days. Take until the script from express script comes in - propranolol (INDERAL) 10 mg tablet Take 1 tablet by mouth two times a day for 30 days, THEN 0.5 tablets two times a day. Then Stop.. - primidone (MYSOLINE) 50 mg tablet Take 2 tablets by mouth daily at bedtime. - levETIRAcetam (KEPPRA) 750 mg tablet Take 2 tablets by mouth two times a day. - iv contrast (will be provided with radiology test) MRI Brain Inject, intravenously, once for 1 dose.No IV access, insert saline lock prior to beginning of sedation, infusion, injection of imaging exam.Discontinue saline lock post exam. If Pt. has a central line or IVAD, may access for administration according to line specific nursing protocol.Once exam is complete flush line and de-access according to line specific nursing protocol in the MR contrast administration guidelines link - iv contrast (will be provided with radiology test) MRI Brain Localization Inject, intravenously, once for 1 dose.No IV access, insert saline lock prior to beginning of sedation, infusion, injection of imaging exam.Discontinue saline lock post exam. If Pt. has a central line or IVAD, may access for administration according to line specific nursing protocol.Once exam is complete flush line and de-access according to line specific nursing protocol in the MR contrast administration guidelines link - rosuvastatin (CRESTOR) 10 mg tablet Take 1 tablet by mouth once mariela (more content not included)... Normal [facility] CNOVon 01-22-2025 CNOV Office Visit (RADTWS ) RESHMA EVANS ([id number]) 1940 F Date Time Provider Department 01/22/25 10:45 AM LINDA MCKEON During your visit today, we recorded the following information about you: Temperature Pulse Respiration Blood pressure 99.9 degrees 63/minute 18/minute 145/83 Linda Mckeon MD 01/22/2025 10:59 AM Signed Radiation Oncology - On Treatment Review (OTR) Note PATIENT NAME: Reshma Evans PATIENT DIAGNOSIS: 1. 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 2. 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 She continues to have hyper-tearing of the left eye since her surgery last year without significant changes. She sees an housekeeping associate. EXAM: KPS: 90 General Appearance: Alert and oriented. No acute distress. Radiation dermatitis: No IMAGING/LAB RESULTS: None Treatment chart checked: Yes Patient treatment site reviewed and verified:Yes CBCTs reviewed and current:Yes Medications started: None ASSESSMENT/PLAN: Clinically stable. No significant treatment-related side effects Continue radiation treatment as planned. MD Nicholas Avendano Kayla, RN 01/22/2025 10:59 AM Signed Radiation Therapy - Nursing Note (OTV) PATIENT NAME: Reshma Evans PATIENT January 22, 2025 [facility] FACILITY/LOCATION: [place] NURSING NOTE TYPE: HEAD AND NECK Subjective Data My left eye is just irritating because it keeps watering. Additional Data Do you want to see a Metal Tile Lather? No Status: Post-menopausal. Stress Scale: On a scale of 0 to 10, what number best describes how much distress you have experienced in the past week?(0 being no distress and 10 being extreme distress) 5 Social work notified: Pt denied need to see social work case manager at this time. Nursing Assessment Fatigue: increased fatigue over baseline but not altering normal activities Appetite: good Nutritional Intake: Regular oral intake. Weight Gain/Loss: Not applicable Ambulatory weight history: Last 6 Encounter Wt Readings: Date: Wt: 01/21/2025 85.9 kg (189 lb 6 oz) 01/16/2025 77.6 kg (171 lb) 12/26/2024 84.8 kg (187 lb) 11/04/2024 83.2 kg (183 lb 6.8 oz) 08/01/2024 82.4 kg (181 lb 10.5 oz) 08/01/2024 82.4 kg (181 lb 10.5 oz) Nausea:None Vomiting: None Bowel Function: normal bowel movements Erythema/Hyperpigmentat ion:none Desquamation:none Rash:none Skin Care: Aquaphor Skin Sensation: Within Normal Limits Focused Assessment HEAD AND NECK: Mouth sores: no. Other: not utilizing anything (per day): 0 and Salivary Changes: increased dryness SIGNED by: Theodora Gaona RN Allergies As of Date: 01/22/2025 (No Known Allergies) Date Reviewed: 01/22/2025 Reviewed by: Theodora Gaona RN - Fully Assessed Reason for Visit: Radiotherapy On-treatment Visit [1722] Primary Visit Diagnosis:Intracranial meningioma (HCC) [D32.0] Prescriptions as of 01/22/2025 - iv contrast (will be provided with radiology test) MRI Brain Inject, intravenously, once for 1 dose.No IV access, insert saline lock prior to beginning of sedation, infusion, injection of imaging exam.Discontinue saline lock post exam. If Pt. has a central line or IVAD, may access for administration according to line specific nursing protocol.Once exam is complete flush line and de-access according to line specific nursing protocol in the MR contrast administration guidelines link - primidone (MYSOLINE) 50 mg tablet Take 2 tablets by mouth daily at bedtime for 7 days. Take until the script from express script comes in - propranolol (INDERAL) 10 mg tablet Take 1 tablet by mouth two times a day for 30 days, THEN 0.5 tablets two times a day. Then Stop.. - primidone (MYSOLINE) 50 mg tablet Take 2 tablets by mouth daily at bedtime. - levETIRAcetam (KEPPRA) 750 mg tablet Take 2 tablets by mouth two times a day. - iv contrast (will be provided with radiology test) MRI Brain Inject, intravenously, once for 1 dose.No IV access, insert saline lock prior to beginning of sedation, infusion, injection of imaging exam.Discontinue saline lock post exam. If Pt. has a central line or IVAD, may access for administration according to line specific nursing protocol.Once exam is complete flush line and de-access according to line specific nursing protocol in the MR contrast administration guidelines link - iv contrast (will be provided with radiology test) MRI Brain Localization Inject, i (more content not included)... Normal [facility] 36on 01-21-2025 36 Rx sent, OARRS repor t done, no inconsistencies, CS agreement in place [facility] 36 Prescription Request : GABAPENTIN CAPS 100MG Last medication check: 10/24/22 Last physical exam: 06/21/24 Next scheduled appointment: none CSA on file (date): 10/23/24 Last date of refill on this medication 10/18/24 ( qty 90 refill 1) [facility] CNOVon 01-21-2025 CNOV Office Visit (NEAGCL M) PRISCILARESHMA MAI ([id number]) 1940 F Date Time Provider Department 01/21/25 11:30 AM NEYMAR JERONIMO NEAGCLM During your visit today, we recorded the following information about you: Pulse Respiration Blood pressure Weight 59/minute 16/minute 119/79 85.9 kg Neymar Jeronimo MD 01/21/2025 1:02 PM Signed NEUROSURGERY POST-OP NOTE Neymar Jeronimo MD Date of visit: January 21, 2025 Patient Name: Ms.Miriam Ronit Evans Date of : 1940 Current Age: [age] year old Sex: female MRN/E# [id number] Last Office Visit: 12/18/2024 CLINICAL SUMMARY: * 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 Barcenas * GKRS to right anterior clinoid meningioma to 14 Gy on 12/06/2024 Dr. Mario Cruz - [facility] [phone] Dr. Matson [facility] [place] [facility]. Cline - post op seizure, on Keppra 1500 mg bid SURGERY: GKRS to right anterior clinoid meningioma to 14 Gy on 12/06/2024 Current AED Dose: keppra 1500mg bid PMH including HTN, HLD, KIMBERLY, DM. Patient has a past surgical history of left frontal craniotomy for meningioma resection, exenteration of frontal sinus 09/24/[address] Lee [facility]ke[facility]. Pathology demonstrating Meningioma, meningotheliomatous-typ e (WHO Grade I). She was seen at [facility] on 02/13/2024 after a fall after stepping off the curb. She struck the left side of her face. CT brain demonstrated a small left frontal SDH. Repeat imaging was stable. She was recommended to keep her outpatient follow up appointment. She was seen on 02/19/2024 where she had been doing well since fall. She initially had MRIs ordered from Dr. Cruz with opthalmology due to the left eye exophthalmus. She noted that this had started about 2 months prior. She stated that when she looked out of the left eye that vision was a bit fuzzy. 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 Left sphenoid wing meningioma with most of its mass located away from the optic nerve. Small right anterior clinoid meningioma noted that was new from MRI in 2013. Since optic nerve was not well visualized, she was recommended to have MRI pituitary to better assess. Her CT brain showed improvement in the left lateral subdural collection, more chronic in appearance. She was seen on 04/04/2024 where she followed up with MRI imaging - vision was the same, fuzziness in the left eye. She had intermittent headaches, resolved with tylenol. Her MRI brain showed on FIESTA sequences there appears to be significant compression of the optic nerve within the optic canal secondary to bone expansion of the intraosseous component of the tumor. She underwent Left pterional craniotomy for resection of sphenoid wing meningioma, Decompression of the optic canal and lateral orbit on 04/26/2024. She had her 2 week post operative visit on 05/20/2024 where she had been doing well overall. She was discharged from [facility] today. Her incision was healing well and sutures were removed at the rehab facility. She denied any pain but sometimes had some pressure on the left side of her head since she sleeps on that side. She noticed her vision out of the left eye feels a little more clear with up close things but far away was still fuzzy. She had an upcoming appointment with Dr Cline 07/04/2024. Her optic canal was well compressed. Pathology showed Grade 1 meningioma with Ki67 of 5 %. She was recommended to follow up at 3 months post operative with MRI. She was recommended to see Dr. Barcenas for incidental rt ICA aneurysm. She was last seen on 08/01/2024 where she had been doing well overall. She felt fatigued and sometimes felt like she doesn't want to do things that she used to do. She did follow up with Dr Cline and was still on Keppra. She still had the left side head pressure some days. She felt like her left eye will sometimes feel swollen since she sleeps on her left. MRI brain showed a stable right ant clinoid meningioma with postoperative changes on the left with no evidence of nodular tumor recurrence, extensive dural thickening, postoperative and tumor involvement. Small post operative epidural fluid collection above the orbit. (more content not included)... [facility] CNOVon 01-16-2025 CNOV Office Visit (NEEPBA ) RESHMA EVANS ([id number]) 1940 F Date Time Provider Department 01/16/25 9:40 AM GERALD CLINE During your visit today, we recorded the following information about you: Pulse Respiration Blood pressure Weight 73/minute 16/minute 128/80 77.6 kg Gerald Cline MD 01/16/2025 9:58 AM Signed - Continue your Keppra as prescribed: take two 750 mg tablets in the morning and two 750 mg tablets at night; refills have been sent to [email or web address] for home delivery. - Increase your primidone for tremor control from 50 mg to 100 mg at bedtime (take two 50 mg tablets each night); the new prescription has been sent to [email or web address]. - Taper off propranolol (Inderal) over two months to avoid sudden heart changes: for the first 30 days, take one 10 mg tablet twice daily; for the next 30 days, take half of a 10 mg tablet twice daily; then stop completely. Refills and taper instructions have been sent to [email or web address]. - If you notice an increase in tremor, call office so we may increase the primidone dose. - Watch for any signs of a nighttime seizure--blood on the pillow, a bitten tongue or cheek, very messy sheets, or waking up feeling sore--and call our office right away if any of these occur. - Plan to return for follow-up in six months to review your progress and adjust treatment as needed. Gerald Cline MD 01/16/2025 10:04 AM Signed [facility] Patient Name: Reshma Evans Date of : 1940 ESTABLISHED EPILEPSY CLINIC NOTE 01/16/2025 9:40 AM Reason for Visit: Follow Up Clinical Summary: Ms. Evans is a 84 year old right-handed female seen in [facility]. At today's visit, the patient is accompanied by: son Recording using Yelp software for draft documentation of the visit was discussed with the patient/authorized veterans service representative; all questions welcomed and answered. Patient/authorized veterans service representative agreed to proceed HISTORY OF PRESENT ILLNESS Handedness: right-handed Age of onset: 83 years Interval History 07/04/24 - last visit 12/06/24 - MRI BRAIN W WO - Similar residual left orbitofrontal meningioma with involvement concerning structures, as detailed. Additional small right-sided paraclinoid meningioma. 12/26/24 - oncology - 84 year old woman with 1. 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 2. 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 I recommend radiation treatment there. Reshma Evans is an 84-year-old female with a history of brain tumor and seizures, presenting for follow-up. Reshma was last seen on July 04. Since then, she has undergone several MRIs, the most recent on December 06, which revealed residual tumor on the left orbitofrontal region. She underwent a gamma knife procedure on December 06 and is scheduled to start radiation therapy today at the [facility] in [place]. She does not report any unusual symptoms or side effects from the increased Keppra dosage (750 mg, two tablets in the morning and two at night). She does not endorse waking up with blood in her mouth or loss of bladder control related to seizures. She is incontinent at night and wears pads. She recalls two instances of waking up to a messed up bed shortly after her surgery last year but has not experienced this recently. Reshma reports nocturnal urinary incontinence, requiring the use of diapers at night. She does not endorse any side effects from her medications. She is currently taking primidone 50 mg at night for tremors, which she reports has helped reduce the severity of her tremors. However, she notes that the tremors worsen when she is nervous. She does not report any side effects from the primidone. She is also taking propranolol 15 mg twice daily but does not feel it has been effective in managing her tremors. Total # of Current Anti-seizure Medications: 2 Side Effects to Current Anti-seizure Medications: none Seizure Frequency at First Visit: Longest Seizure-free Interval: Number of seizure types: 1 Hx of generalized tonic-clonic seizures: No Tongue bite: No Urine or Bowel Incontinence: No Triggers: meningioma Postictal Deficits: No Memory complaints: none Status Epilepticus or clusters: No Postictal Agitation: No Significant Injuries from Seizures: none Seizure-related driving accidents: No Driving: No Lives Alone: No ED Visits in Last 3 Months: No Hospitalizations in Last 3 Months: No Highest Level of Education: High school graduate (includes GED) (more content not included)... [facility] MR Brain WO and W contrast I Von 01-16-2025 IMPRESSION: Stable appearance of the brain. Stable meningioma centered about the LEFT greater sphenoid and stable RIGHT anterior clinoid process meningioma as above. Inspector Material Disposition: TRAVIS Transcribe Date/Time: Jan 16 2025 4:54P Dictated by : ELAINA GARZON MD This examination was interpreted and the report reviewed and electronically signed by: ELAINA GARZON MD on Jan 16 2025 5:12PM [facility] DIVISION OF RADIOLOGY * * *Final Report* * * DATE OF EXAM: Jan 16 2025 3:35PM [facility] 0295 - MRI BRAIN WO/W IVCON / PROCEDURE REASON: Benign meningioma (HCC) * * * * Physician Interpretation * * * * EXAMINATION: MRI BRAIN WO/W IVCON CLINICAL HISTORY: Meningioma. TECHNIQUE: Routine brain MRI protocol without and with contrast including diffusion images. MQ: MRBWOW_2 Contrast: 8 mL Elucirem IV COMPARISON: 12/06/2024. RESULT: Acute Change: There is no evidence of restricted diffusion to suggest an acute infarct. Hemorrhage: Magnetic susceptibility present within the operative site, LEFT temporal frontal region. Mass Lesion/ Mass Effect: LEFT pterional craniotomy, unchanged. There is extensive extradural enhancement overlying the anterior LEFT frontal lobe and LEFT temporal lobe with extension into the adjacent LEFT dealer support technician space, centered about the LEFT greater degree and sphenoid with likely extension into the adjacent LEFT sphenoid sinus and posterior ethmoid air cells. Distribution and extent of disease appears comparable to that seen on prior examination. Lesion grossly measures approximately 6 cm transverse by 2 cm AP. Resultant proptosis. T2 and FLAIR hyperintensity present along the margins of the operative site and within the RIGHT frontal and temporal lobes. No midline shift or ventricular trapping. Additional extra-axial enhancement centered about the RIGHT anterior clinoid process measuring 1 cm transverse. Chronic Change: Encephalomalacia along the medial anterior LEFT frontal lobe and anterior LEFT temporal lobe. Parenchyma: There is moderate generalized parenchymal volume loss. The brain parenchyma is otherwise within normal limits of signal intensity and morphology. Ventricles: Ventriculomegaly corresponds to the degree of parenchymal volume loss. Skull Base: Hypothalamic and pituitary region are grossly normal. Craniocervical junction is normal. No significant marrow replacement process. Vasculature: Major intracranial arterial structures, and dural venous sinuses show typical flow void, suggesting patency by spin echo criteria. Other: Postoperative changes involve the globes bilaterally. DIVISION OF RADIOLOGY Provider, [facility] - 01/16/2025 * * *Final Report* * * DATE OF EXAM: Jan 16 2025 3:35PM [facility] 0295 - MRI BRAIN WO/W IVCON / PROCEDURE REASON: Benign meningioma (HCC) * * * * Physician Interpretation * * * * EXAMINATION: MRI BRAIN WO/W IVCON CLINICAL HISTORY: Meningioma. TECHNIQUE: Routine brain MRI protocol without and with contrast including diffusion images. MQ: MRBWOW_2 Contrast: 8 mL Elucirem IV COMPARISON: 12/06/2024. RESULT: Acute Change: There is no evidence of restricted diffusion to suggest an acute infarct. Hemorrhage: Magnetic susceptibility present within the operative site, LEFT temporal frontal region. Mass Lesion/ Mass Effect: LEFT pterional craniotomy, unchanged. There is extensive extradural enhancement overlying the anterior LEFT frontal lobe and LEFT temporal lobe with extension into the adjacent LEFT dealer support technician space, centered about the LEFT greater degree and sphenoid with likely extension into the adjacent LEFT sphenoid sinus and posterior ethmoid air cells. Distribution and extent of disease appears comparable to that seen on prior examination. Lesion grossly measures approximately 6 cm transverse by 2 cm AP. Resultant proptosis. T2 and FLAIR hyperintensity present along the margins of the operative site and within the RIGHT frontal and temporal lobes. No midline shift or ventricular trapping. Additional extra-axial enhancement centered about the RIGHT anterior clinoid process measuring 1 cm transverse. Chronic Change: Encephalomalacia along the medial anterior LEFT frontal lobe and anterior LEFT temporal lobe. Parenchyma: There is moderate generalized parenchymal volume loss. The brain parenchyma is otherwise within normal limits of signal intensity and morphology. Ventricles: Ventriculomegaly corresponds to the degree of parenchymal volume loss. Skull Base: Hypothalamic and pituitary region are grossly normal. Craniocervical junction is normal. No significant marrow replacement process. Vasculature: Major intracranial arterial structures, and dural venous sinuses show typical flow void, suggesting patency by spin echo criteria. Other: Postoperative changes involve the globes bilaterally. IMPRESSION IMPRESSION: Stable appearance of the brain. Stable meningioma centered about the LEFT greater sphenoid and stable RIGHT anterior clinoid process meningioma as above. Inspector Material Disposition: PSCB Transcribe Date/Time: Jan 16 2025 4:54P Dictated by : ELAINA GARZON MD This examination was interpreted and the report reviewed and electronically signed by: ELAINA GARZON MD on Jan 16 2025 5:12PM EST [facility] Radiology Study observation (narrative) [facility] MR Brain WO and W contrast I VOrdered By: [facility] Provider on 01-16-2025 [facility] MRI BRAIN WO/W IVCONon 01-16 MRI BRAIN WO/W IVCON * * *Final Report* * * DATE OF EXAM: Jan 16 2025 3:35PM [facility] 0295 - MRI BRAIN WO/W IVCON / PROCEDURE REASON: Benign meningioma (HCC) * * * * Physician Interpretation * * * * EXAMINATION: MRI BRAIN WO/W IVCON CLINICAL HISTORY: Meningioma. TECHNIQUE: Routine brain MRI protocol without and with contrast including diffusion images. MQ: MRBWOW_2 Contrast: 8 mL Elucirem IV COMPARISON: 12/06/2024. RESULT: Acute Change: There is no evidence of restricted diffusion to suggest an acute infarct. Hemorrhage: Magnetic susceptibility present within the operative site, LEFT temporal frontal region. Mass Lesion/ Mass Effect: LEFT pterional craniotomy, unchanged. There is extensive extradural enhancement overlying the anterior LEFT frontal lobe and LEFT temporal lobe with extension into the adjacent LEFT dealer support technician space, centered about the LEFT greater degree and sphenoid with likely extension into the adjacent LEFT sphenoid sinus and posterior ethmoid air cells. Distribution and extent of disease appears comparable to that seen on prior examination. Lesion grossly measures approximately 6 cm transverse by 2 cm AP. Resultant proptosis. T2 and FLAIR hyperintensity present along the margins of the operative site and within the RIGHT frontal and temporal lobes. No midline shift or ventricular trapping. Additional extra-axial enhancement centered about the RIGHT anterior clinoid process measuring 1 cm transverse. Chronic Change: Encephalomalacia along the medial anterior LEFT frontal lobe and anterior LEFT temporal lobe. Parenchyma: There is moderate generalized parenchymal volume loss. The brain parenchyma is otherwise within normal limits of signal intensity and morphology. Ventricles: Ventriculomegaly corresponds to the degree of parenchymal volume loss. Skull Base: Hypothalamic and pituitary region are grossly normal. Craniocervical junction is normal. No significant marrow replacement process. Vasculature: Major intracranial arterial structures, and dural venous sinuses show typical flow void, suggesting patency by spin echo criteria. Other: Postoperative changes involve the globes bilaterally. IMPRESSION: Stable appearance of the brain. Stable meningioma centered about the LEFT greater sphenoid and stable RIGHT anterior clinoid process meningioma as above. Inspector Material Disposition: TRAVIS Transcribe Date/Time: Jan 16 2025 4:54P Dictated by : ELAINA GARZON MD This examination was interpreted and the report reviewed and electronically signed by: ELAINA GARZON MD on Jan 16 2025 5:12PM EST [id number] Normal [facility] CNNURSEon 01-02-2025 CNNURSE Nurse Visit (RADTWS) RESHMA EVANS ([id number]) 1940 F Date Time Provider Department 01/02/25 1:30 PM NURSE RADT [facility] RADTWS During your visit today, we recorded the following information about you: Vince Tejeda RN 01/02/2025 2:15 PM Signed Radiation Therapy - Patient Education Note PATIENT NAME: Reshma Evans PATIENT January 02, 2025 [facility] FACILITY/LOCATION: [place] READINESS TO LEARN Cognitive Ability: Alert and oriented Motivation to learn: Eager Interested Family Support: High - Very involved in pt care Instruction provide to: Patient and Family member Patient learns best by: Multiple Methods Factors effecting learning: None Physical limitations effecting learning: None LEARNING RESPONSE Diagnosis: Pt simulated today for radiation therapy to brain. Education Topic/Teaching Points: Radiation therapy, Side effects, and OTV: Method of instruction: Teach Back skin care Individual instruction Written instruction/Handouts Verbal instruction Patient /Family response: Patient and family verbalized understanding of radiation treatments, side effects, OTV, and transportation. Follow-up plan: Patient instructed to call with any further issues Contact information given. Supplemental material: Informational handouts on Department phone list, Brain tumor packet, Fatigue, and [place] instructions, XRT sheet and Aquaphor handout. 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 Was PED reviewed? No Patient has an Onbody or Implanted device: Yes, person notified was: Person had on a Zio heart monitor that was applied yesterday. It was removed prior to simulation and device was given to patient. Signed by: Vince Tejeda RN Allergies As of Date: 01/02/2025 (No Known Allergies) Date Reviewed: 12/26/2024 Reviewed by: Vince Tejeda RN - Fully Assessed Reason for Visit: Patient Education [91] Primary Visit Diagnosis:Intracranial meningioma (HCC) [D32.0] Prescriptions as of 01/02/2025 - dexAMETHasone (DECADRON) 2 mg tablet Start the day after your Gamma Knife Procedure: Decadron (dexamethasone) Take 4 mg (2 tablets) daily for 3 days. Take 2 mg (1 tablet) daily for 3 days then Stop Decadron Patient should start on December 07, 2024. - iv contrast (will be provided with radiology test) MRI Brain Inject, intravenously, once for 1 dose.No IV access, insert saline lock prior to beginning of sedation, infusion, injection of imaging exam.Discontinue saline lock post exam. If Pt. has a central line or IVAD, may access for administration according to line specific nursing protocol.Once exam is complete flush line and de-access according to line specific nursing protocol in the MR contrast administration guidelines link - iv contrast (will be provided with radiology test) MRI Brain Localization Inject, intravenously, once for 1 dose.No IV access, insert saline lock prior to beginning of sedation, infusion, injection of imaging exam.Discontinue saline lock post exam. If Pt. has a central line or IVAD, may access for administration according to line specific nursing protocol.Once exam is complete flush line and de-access according to line specific nursing protocol in the MR contrast administration guidelines link - primidone (MYSOLINE) 50 mg tablet Take 1 tablet by mouth daily at bedtime. - rosuvastatin (CRESTOR) 10 mg tablet Take 1 tablet by mouth once daily. - levETIRAcetam (KEPPRA) 750 mg tablet Take 2 tablets by mouth two times a day. - acetaminophen (TYLENOL) 500 mg tablet 2 tablets by ORAL/FEEDING TUBE route every 6 hours. - fluorometholone (FML LIQUID FILM) 0.1 % ophthalmic suspension Use 1 Drop in the left eye two times a day. - multivitamin/iron/folic acid (CENTRUM ORAL) Take by mouth. - gabapentin (NEURONTIN) 100 mg capsule Take 100 mg by mouth two times a day. - propranolol (INDERAL) 10 mg tablet Take 15 mg by mouth two times a day. - Cunningham-3 Fatty Acids-Vitamin E (FISH OIL) 1,000 mg cap Take 1 capsule by mouth. - Cholecalciferol, Vitamin D3, (VITAMIN D) 1,000 unit ORAL Cap Take one(1) tablet daily. Problem List As Of Date 01/02/2025 Noted Resolved Benign neoplasm of cerebral meninges [D32.0] 10/05/2010 SDH (subdural hematoma) (HCC) [S06.5XAA] 02/13/2024 Trauma [T14.90XA] 02/14/2024 Fall [W19.XXXA] 02/14/2024 Periorbital hematoma of left eye [H05.232] 02/14/2024 HTN (hypertension) [I10] 02/14/2024 Hyperlipidemia [E78.5] 02/14/2024 TBI (traumatic brain injury) (HCC) [S06.9XAA] 02/14/2024 Benign meningioma (HCC) [D32.9] 04/16/2024 Pre-op examination [Z01.818] 04/16/2024 Type 2 diabetes mellitus without complication, *10/07/2016 KIMBERLY (obstructive sleep apnea) [G47.33] 04/18/2024 Meningioma (HCC) [D32.9] 04/26/2024 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.*04/27/2024 Aphasia [R (more content not included)... [facility] CNOVon 12-26-2024 CNOV Office Visit (RADTWS ) RESHMA EVANS ([id number]) 1940 F Date Time Provider Department 12/26/24 9:30 AM LINDA MCKEON During your visit today, we recorded the following information about you: Temperature Pulse Respiration Blood pressure 98.1 degrees 70/minute 14/minute 123/6 Weight 84.8 kg Vince Tejeda RN 12/31/2024 9:57 AM Signed Radiation Therapy - Nursing Note (Consult) PATIENT NAME: Reshma Evans PATIENT December 26, 2024 [facility] FACILITY/LOCATION: [place] Chief Complaint: concult Reason for visit: Consult. Referring physician: Internal provider Dr Costa Subjective Data: no complaints Additional Data Do you want to see a Metal Tile Lather? No Are you interested in information about fertility? No Status: Post-menopausal Stress Scale: On a scale of 0 to 10, what number best describes how much distress you have experienced in the past week?(0 being no distress and 10 being extreme distress) 5 Social work notified: Pt denied need to see social work case manager at this time. SIGNED by: ZOHREH Moran Daesung, MD 12/31/2024 9:57 AM Signed Radiation Oncology - New Patient/Consult Note PATIENT NAME: Reshma Evans PATIENT REQUESTING PROVIDER: Dr. Neymar Jeronimo DIAGNOSIS: 1. 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 2. 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 Final recommendations will be communicated back to the requesting physician by way of the shared medical record, or letter to requesting physician via [place] mail. 84 year old woman who initially had WHO grade 1 meningioma in 2010 in the left frontal pole. He underwent left frontal craniotomy for meningioma resection, exenteration of frontal sinus on 09/24/[address] Lee Mckeon. 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 She had left eye proptosis and fuzzy vision last year. MRI brain on 02/07/24 showed T1 hypointense, T2 hyperintense, diffusion restricting avidly enhancing extra-axial dural based mass in the left middle cranial fossa along the greater wing of the sphenoid measuring at least 2.0 x 2.5 x 2.9 cm (TV X AP X CC) involving the greater wing of sphenoid, likely a meningioma. Extracranial extension into the left temporalis muscle as well as extension into the lateral extraconal orbital soft tissues is noted. There is extensive dural thickening and enhancement particularly of the left frontal and temporal convexities measuring up to 0.7cm in thickness which is nonspecific though is likely related to mass. There is involvement of the left anterior clinoid and optic strut. An additional extra-axial dural based enhancing mass of the right anterior clinoid process measures 0.9 x 0.8 x 0.9 cm (TV X AP X CC), likely an additional meningioma without significant associated mass effect. 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 Ki-67 index was about 5%. MRI brain on 11/04/24 showed that the left sided residual tumor increased in size slightly. She underwent GK SRS of the right anterior clinoid small meningioma on 12/06/24. ALLERGIES No Known Allergies Current Outpatient Medications on File Prior to Visit Medication Sig dexAMETHasone (DECADRON) 2 mg tablet Start the day after your Gamma Knife Procedure: Decadron (dexamethasone) Take 4 mg (2 tablets) daily for 3 days. Take 2 mg (1 tablet) daily for 3 days then Stop Decadron Patient should start on December 07, 2024. (Patient not taking: Reported on 12/26/2024) iv contrast (will be provided with radiology test) MRI Brain Inject, intravenously, once for 1 dose.No IV access, insert saline lock prior to beginning of sedation, infusion, injection of imaging exam.Discontinue saline lock post exam. If Pt. has a central line or IVAD, may access for administration according to line specific nursing protocol.Once exam is complete flush line and de-access according to line specific nursing protocol in the MR contrast administration guidelines link iv contrast (will be provided with radiology test) MRI Brain Localization Inject, intravenously, once for 1 dose.No IV access, insert saline lock prior to beginning of sedation, infusion, injection of imaging exam.Discontinue saline lock post exam. If Pt. has a central line or IVAD, may access for administration according to line specific nursing protocol.Once exam is complete flush line and de-access according to line specific nursi (more content not included)... Normal [facility] CNPValery 12-18-2024 CNPN Telephone (NEAGCLM) RESHMA EVANS ([id number]) 1940 F Date Time Provider Department 12/18/24 NEYMAR JERONIMO NEAGCLM During your visit today, we recorded the following information about you: Karli Cox, ZOHREH 12/18/2024 11:11 AM Signed Spoke with Sujatha, patients son. Let him know we would place consult for radiation oncology at [place] - Dr. Linda Mckeon. Provided him with phone # for Dr Mckeon's office. Let him know Dr Jeronimo told me on Monday she was going to email their team, I told Sujatha I would check with Dr Jeronimo tomorrow on this. ZOHREH Spear Debra, RN 12/19/2024 9:25 AM Signed I just want to verify that the patient is not needing gamma knife. We can't do gamma knife here and just want to make sure the patient is scheduled correctly. Thanks! Vince Tejeda RN 12/19/2024 9:44 AM Signed Please schedule patient for consult with Dr Mckeon. Referring doctor is Dr Jeronimo. There is a referral entered. Thanks! Maribel Zee 12/19/2024 10:33 AM Addendum LVM for pt to call back and schedule e Dr Mckeon TECHNICAL SALES ADVISOR. Referring doctor is Karli Amaya RN 12/19/2024 3:00 PM Signed Spoke with Sujatha Sterling. Let him know Dr. Mckeon's office is aware to get reshma set up for an appt Looks like they tried to call her today. Sujatha Sterling is a good contact for patient to call. ZOHREH Spear Melissa 12/20/2024 10:20 AM Signed Scheduled with Sujatha sterling Allergies As of Date: 12/18/2024 (No Known Allergies) Date Reviewed: 12/06/2024 Reviewed by: Manju Mendosa RN - Fully Assessed Primary Visit Diagnosis:Intracranial meningioma (HCC) [D32.0] Order(s):RAD/ONC CONSULT [9037] Order #: [id number]: 1 FUTURE Prescriptions as of 12/20/2024 - dexAMETHasone (DECADRON) 2 mg tablet Start the day after your Gamma Knife Procedure: Decadron (dexamethasone) Take 4 mg (2 tablets) daily for 3 days. Take 2 mg (1 tablet) daily for 3 days then Stop Decadron Patient should start on December 07, 2024. - iv contrast (will be provided with radiology test) MRI Brain Inject, intravenously, once for 1 dose.No IV access, insert saline lock prior to beginning of sedation, infusion, injection of imaging exam.Discontinue saline lock post exam. If Pt. has a central line or IVAD, may access for administration according to line specific nursing protocol.Once exam is complete flush line and de-access according to line specific nursing protocol in the MR contrast administration guidelines link - iv contrast (will be provided with radiology test) MRI Brain Localization Inject, intravenously, once for 1 dose.No IV access, insert saline lock prior to beginning of sedation, infusion, injection of imaging exam.Discontinue saline lock post exam. If Pt. has a central line or IVAD, may access for administration according to line specific nursing protocol.Once exam is complete flush line and de-access according to line specific nursing protocol in the MR contrast administration guidelines link - primidone (MYSOLINE) 50 mg tablet Take 1 tablet by mouth daily at bedtime. - rosuvastatin (CRESTOR) 10 mg tablet Take 1 tablet by mouth once daily. - levETIRAcetam (KEPPRA) 750 mg tablet Take 2 tablets by mouth two times a day. - acetaminophen (TYLENOL) 500 mg tablet 2 tablets by ORAL/FEEDING TUBE route every 6 hours. - fluorometholone (FML LIQUID FILM) 0.1 % ophthalmic suspension Use 1 Drop in the left eye two times a day. - multivitamin/iron/folic acid (CENTRUM ORAL) Take by mouth. - gabapentin (NEURONTIN) 100 mg capsule Take 100 mg by mouth two times a day. - propranolol (INDERAL) 10 mg tablet Take 15 mg by mouth two times a day. - Cunningham-3 Fatty Acids-Vitamin E (FISH OIL) 1,000 mg cap Take 1 capsule by mouth. - Cholecalciferol, Vitamin D3, (VITAMIN D) 1,000 unit ORAL Cap Take one(1) tablet daily. 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] 10/05/2010 SDH (subdural hematoma) (HCC) [S06.5XAA] 02/13/2024 Trauma [T14.90XA] 02/14/2024 Fall [W19.XXXA] 02/14/2024 Periorbital hematoma of left eye [H05.232] 02/14/2024 HTN (hypertension) [I10] 02/14/2024 Hyperlipidemia [E78.5] 02/14/2024 TBI (traumatic brain injury) (HCC) [S06.9XAA] 02/14/2024 Benign meningioma (HCC) [D32.9] 04/16/2024 Pre-op examination [Z01.818] 04/16/2024 Type 2 diabetes mellitus without complication, *10/07/2016 KIMBERLY (obstructive sleep apnea) [G47.33] 04/18/2024 Meningioma (HCC) [D32.9] 04/26/2024 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 Follow up a s scheduled. [facility] 12-13-2024 CNPN Telephone (NEAGCLM) RESHMA EVANS ([id number]) 1940 F Date Time Provider Department 12/13/24 NEYMAR JERONIMO NEAGCLM During your visit today, we recorded the following information about you: Pete Butterfield RN 12/13/2024 11:26 AM Signed The patients son called wanted to know how they need to go about scheduling for radiation in [place]. I told him we would talk with Dr. Jeronimo and her primary nurse on Monday and give him a call back as I did not see any details noted in the chart. He was thankful and understanding. Pete Butterfield RN Allergies As of Date: 12/13/2024 (No Known Allergies) Date Reviewed: 12/06/2024 Reviewed by: Manju Mendosa RN - Fully Assessed Reason for Visit: Patient Question [9237] Prescriptions as of 12/13/2024 - famotidine (PEPCID) 20 mg tablet Take 1 tablet by mouth once daily for 6 days. Patient should start on December 07, 2024. - dexAMETHasone (DECADRON) 2 mg tablet Start the day after your Gamma Knife Procedure: Decadron (dexamethasone) Take 4 mg (2 tablets) daily for 3 days. Take 2 mg (1 tablet) daily for 3 days then Stop Decadron Patient should start on December 07, 2024. - iv contrast (will be provided with radiology test) MRI Brain Inject, intravenously, once for 1 dose.No IV access, insert saline lock prior to beginning of sedation, infusion, injection of imaging exam.Discontinue saline lock post exam. If Pt. has a central line or IVAD, may access for administration according to line specific nursing protocol.Once exam is complete flush line and de-access according to line specific nursing protocol in the MR contrast administration guidelines link - iv contrast (will be provided with radiology test) MRI Brain Localization Inject, intravenously, once for 1 dose.No IV access, insert saline lock prior to beginning of sedation, infusion, injection of imaging exam.Discontinue saline lock post exam. If Pt. has a central line or IVAD, may access for administration according to line specific nursing protocol.Once exam is complete flush line and de-access according to line specific nursing protocol in the MR contrast administration guidelines link - primidone (MYSOLINE) 50 mg tablet Take 1 tablet by mouth daily at bedtime. - rosuvastatin (CRESTOR) 10 mg tablet Take 1 tablet by mouth once daily. - levETIRAcetam (KEPPRA) 750 mg tablet Take 2 tablets by mouth two times a day. - acetaminophen (TYLENOL) 500 mg tablet 2 tablets by ORAL/FEEDING TUBE route every 6 hours. - fluorometholone (FML LIQUID FILM) 0.1 % ophthalmic suspension Use 1 Drop in the left eye two times a day. - multivitamin/iron/folic acid (CENTRUM ORAL) Take by mouth. - gabapentin (NEURONTIN) 100 mg capsule Take 100 mg by mouth two times a day. - propranolol (INDERAL) 10 mg tablet Take 15 mg by mouth two times a day. - Cunningham-3 Fatty Acids-Vitamin E (FISH OIL) 1,000 mg cap Take 1 capsule by mouth. - Cholecalciferol, Vitamin D3, (VITAMIN D) 1,000 unit ORAL Cap Take one(1) tablet daily. 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] 10/05/2010 SDH (subdural hematoma) (HCC) [S06.5XAA] 02/13/2024 Trauma [T14.90XA] 02/14/2024 Fall [W19.XXXA] 02/14/2024 Periorbital hematoma of left eye [H05.232] 02/14/2024 HTN (hypertension) [I10] 02/14/2024 Hyperlipidemia [E78.5] 02/14/2024 TBI (traumatic brain injury) (HCC) [S06.9XAA] 02/14/2024 Benign meningioma (HCC) [D32.9] 04/16/2024 Pre-op examination [Z01.818] 04/16/2024 Type 2 diabetes mellitus without complication, *10/07/2016 KIMBERLY (obstructive sleep apnea) [G47.33] 04/18/2024 Meningioma (HCC) [D32.9] 04/26/2024 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.*04/27/2024 Aphasia [R47.01] 04/27/2024 Provoked seizures (HCC) [R56.9] 04/28/2024 Encounter Status:Closed by PETE BUTTERFIELD on 12/13/24 [facility] CNOVon 12-06-2024 CNOV Office Visit (NOGA ) RESHMA EVANS ([id number]) 1940 F Date Time Provider Department 12/06/24 7:30 AM PLACEMENT DENISE SWEET [facility] During your visit today, we recorded the following information about you: Pulse Respiration Blood pressure 65/minute 14/minute 161/72 Manju Mnedosa, ZOHREH 12/06/2024 11:08 AM Signed December 06, 2024 0700 Reshma arrived ambulatory with slow gait with: sonSujatha [phone] Transportation home verified: yes, with son. [id number] Mask completed. To imaging for CT Scan and MRI. Reshma here for today for imaging, mask fitting, pre-planning for Icon mask based Gamma Knife Stereotactic Radiosurgery by radiation therapist, and single session mask based treatment. 08 Reshma Evans returned to department for treatment # 1 of 1. ID verified with patient with two identifiers, name and birthdate. ID band applied. Manju Mendosa RN Reshma assessed for the following: Does Reshma have any pain? No. Pain 0 on scale of 0-10 Does Reshma have: Difficulty chewing and/or swallowing: no Fall risk assessment: Not at risk for falls Concerns about physical or emotional abuse: no Allergies reviewed with patient, yes. Reshma is taking all her routine morning medications now. Denies pain or any other concerns. Is patient on immunotherapy? No. Patient's Age: 84 Menstruation Status: Post Menopausal 904 Decadron 10 mg po given prior to Gamma Knife SRS per order of Dr David Jeronimo MD. Patient assisted to treatment room. Gamma Knife SRS begun. 1010 Printed and verbal discharge instructions given to patient's son, Sujahta as per Reshma's request. Instructions reviewed by this nurse and family verbalized an understanding. 1015 Gamma Knife Stereotactic Radiosurgery Completed. 1018 Pt then discharged. ZOHREH Hernadez Heidi, RN 12/06/2024 9:46 AM Addendum [facility] Gamma Knife Center Discharge Instructions - As with any surgery there are risks and potential side effects. There is a slight chance of developing brain swelling days or months after the Gamma Knife radiosurgery. If you experience nausea, vomiting, severe headache, visual changes, difficulty speaking, a seizure or any other symptom unusual for you, contact your physician immediately or go to the nearest emergency room. These may or may not be symptoms of brain swelling. If you go to a physician or hospital other than the [facility] with any problem related to the Gamma Knife procedure, please notify your physician, Dr. Justin Jeronimo at [phone]. - Rarely, patients experience pain the day after their radiosurgery. You may take non-aspirin pain medication, such as Tylenol, if you are having any discomfort. - Some patients are placed on steroids, such as Decadron, and an antacid, such as Pepcid, following their radiosurgery. Certain conditions require these medications to lessen the chance of swelling around the treated area. When prescribed, these medications are extremely important in the period immediately following your Gamma Knife treatment and must be taken exactly as directed. The Gamma Knife nurse will discuss your particular situation with you. Do not take any decadron for the remainder of today. Begin following the below regimen on 12/07/24Monday: Decadron (dexamethasone) 2 mg each tablet (take with food or snack and avoid taking near bedtime hours): Take 4 mg (2 tablets) daily for 3 days (MON, MON, MON). Take 2 mg (1 tablet) daily for 3 days (MON, MON, ). Stop Decadron Pepcid (famotidine) Take Pepcid 20 mg daily while on Decadron. Stop Pepcid when you stop Decadron. Resume all other regular medications. - Taking good care of your general health is an important step to recovery. Continue to eat well and get plenty of rest. If you have any non-urgent questions or concerns, please call your physician, Dr. Justin Jeronimo at [phone] Monday through Monday 8:00 am to 5:00 pm. In the evening or on weekends, call [phone] or toll-free [phone]-[phone] and ask the wire machine operator to page your neurosurgeon's resident occupational therapy program director. Referring Provider: NEYMAR JERONIMO [[id number]] Allergies As of Date: 12/06/2024 (No Known Allergies) Date Reviewed: 12/06/2024 Reviewed by: Manju Mendosa RN - Fully Assessed Reason for Visit: Procedure [88] Cmt: GKRS Primary Visit Diagnosis:Benign meningioma (HCC) [D32.9] Order(s):[] dexAMETHasone (DECADRON) tab(s) 10 mgDisp: Rfl: Prescriptions as of 12/06/2024 - famotidine (PEPCID) 20 mg tablet Take 1 tablet by mouth once daily for 6 days. Patient should start on December 07, 2024. - dexAMETHasone (DECADRON) 2 mg tablet Start the day after your Gamma Knife Procedure: Decadron (dexamethasone) Take 4 mg (2 tablets) daily for 3 days. Take 2 mg (1 tablet) daily for 3 days then Stop Decadron Patient should start on Ma (more content not included)... Normal [facility] CT BRAIN WO IVCONon 12-07-[address] BRAIN WO IVCON * * *Final Report* * * DATE OF EXAM: Dec 06 2024 8:19AM [facility] 0504 - CT BRAIN WO IVCON / PROCEDURE REASON: Benign meningioma (HCC) * * * * Physician Interpretation * * * * CT BRAIN WO IVCON HISTORY: Benign meningioma TECHNIQUE: CT head high-resolution localization protocol without contrast. M: CTBWO_3 CT Dose-Length Product (DLP): 1148 mGy*cm CT Dose Reduction Employed: Automated exposure control (AEC) COMPARISON: MRI brain 12/06/2024 RESULT: See concurrent MRI brain report. IMPRESSION: Localization examination. See concurrent MRI brain report. Inspector Material Disposition: [employer] Transcribe Date/Time: Dec 06 2024 8:28A Dictated by : MELISSA SALES MD This examination was interpreted and the report reviewed and electronically signed by: MELISSA SALES MD on Dec 06 2024 8:29AM EST [id number] Normal [facility] CT Head WO contraston 2024 IMPRESSION: Localization examination. See concurrent MRI brain report. Inspector Material Disposition: [email or web address] Transcribe Date/Time: Dec 06 2024 8:28A Dictated by : MELISSA SALES MD This examination was interpreted and the report reviewed and electronically signed by: MELISSA SALES MD on Dec 06 2024 8:29AM EST DIVISION OF RADIOLOGY * * *Final Report* * * DATE OF EXAM: Dec 06 2024 8:19AM [facility]504 - CT BRAIN WO IVCON / PROCEDURE REASON: Benign meningioma (HCC) * * * * Physician Interpretation * * * * CT BRAIN WO IVCON HISTORY: Benign meningioma TECHNIQUE: CT head high-resolution localization protocol without contrast. M: CTBWO_3 CT Dose-Length Product (DLP): 1148 mGy*cm CT Dose Reduction Employed: Automated exposure control (AEC) COMPARISON: MRI brain 12/06/2024 RESULT: See concurrent MRI brain report. DIVISION OF RADIOLOGY Provider, [facility] - 12/06/2024 * * *Final Report* * * DATE OF EXAM: Dec 06 2024 8:19AM [facility] 0504 - CT BRAIN WO IVCON / PROCEDURE REASON: Benign meningioma (HCC) * * * * Physician Interpretation * * * * CT BRAIN WO IVCON HISTORY: Benign meningioma TECHNIQUE: CT head high-resolution localization protocol without contrast. M: CTBWO_3 CT Dose-Length Product (DLP): 1148 mGy*cm CT Dose Reduction Employed: Automated exposure control (AEC) COMPARISON: MRI brain 12/06/2024 RESULT: See concurrent MRI brain report. IMPRESSION IMPRESSION: Localization examination. See concurrent MRI brain report. Inspector Material Disposition: PSCB Transcribe Date/Time: Dec 06 2024 8:28A Dictated by : MELISSA SALES MD This examination was interpreted and the report reviewed and electronically signed by: MELISSA SALES MD on Dec 06 2024 8:29AM EST [facility] CT Head WO contrastOrdered B y: [facility] Provider on 12-06-2024 [facility] HISTORY PHYSICALon HISTORY PHYSICAL HNO ID: [id number] Author: NEYMAR JERONIMO MD Service: Neurosurgery Author Type: Physician Type: H&P Filed: 12/06/2024 09:37 Note Text: HISTORY AND PHYSICAL EXAMINATION SERVICE DATE: 12/06/2024 SERVICE TIME: 9 am PRIMARY CARE PHYSICIAN: Zoë Kaplan NP, OUTDOOR ADVENTURE INSTRUCTOR REASON FOR VISIT: Reshma Evans is a 84 year old female who is being seen for right clinoid meningioma The patient has the following: ACTIVE PROBLEM LIST Benign Neoplasm of Cerebral Meninges (Hcc) Sdh (Subdural Hematoma) (Hcc) Trauma Fall Periorbital Hematoma of Left Eye Htn (Hypertension) Hyperlipidemia Tbi (Traumatic Brain Injury) (Hcc) Benign Meningioma (Hcc) Pre-Op Examination Type 2 Diabetes Mellitus Without Complication, Without Long-Term Current Use of Insulin (Hcc) Kimberly (Obstructive Sleep Apnea) Meningioma (Hcc) Aneurysm of Anterior Communicating Artery (Hcc) Aphasia Provoked Seizures (Hcc) SUBJECTIVE CHIEF COMPLAINT: increasing size of rt clinoid meninigoma HPI: No new sxs. Stable decreased vision in left eye and proptosis. Otherwise, denies any headaches, nausea/vomiting, new weakness/numbness, seizures, changes in vision, or double vision. PAST MEDICAL HISTORY Diagnosis Date Benign meningioma (HCC) BPPV (benign paroxysmal positional vertigo) Brain tumor (HCC) Diabetes (HCC) Epilepsy (HCC) HTN (hypertension) 02/14/2024 Hyperlipidemia 02/14/2024 Obesity Obstructive sleep apnea PONV (postoperative nausea and vomiting) SDH (subdural hematoma) (HCC) 02/13/2024 Sleep apnea Traumatic brain injury (HCC) PAST SURGICAL HISTORY Procedure Laterality Date ARTHRP KNE CONDYLEANDPLATU MEDIALANDLAT COMPARTMENTS 07/10/1979 right BRAIN SURGERY HX 04/26/2024 Left pterional craniotomy PAST SURGICAL HISTORY OF Bilateral total knees RECONSTRUCT CLEFT PALATE Infancy RECONSTRUCTION ROTATOR CUFF AVULSION CHRONIC 07/10/2007 right REPAIR CLEFT LIP Infancy REVISE MEDIAN N/CARPAL TUNNEL SURG FAMILY HISTORY Problem Relation Age of Onset other (esophageal cancer [Other]) Brother 62 other (leukemia [Other]) Sister 49 Tremor No Family History Seizures No Family History SOCIAL HISTORY: Social History Tobacco Use Smoking status: Never Passive exposure: Never Smokeless tobacco: Never Vaping Use Vaping status: Never Used Substance Use Topics Alcohol use: Not Currently Comment: occasional/social Drug use: No MEDICATIONS: Prior to Admission medications as of 12/06/24 0747 Medication Sig Last Dose Taking famotidine (PEPCID) 20 mg tablet Take 1 tablet by mouth once daily for 6 days. Patient should start on December 07, 2024. dexAMETHasone (DECADRON) 2 mg tablet Start the day after your Gamma Knife Procedure: Decadron (dexamethasone) Take 4 mg (2 tablets) daily for 3 days. Take 2 mg (1 tablet) daily for 3 days then Stop Decadron Patient should start on December 07, 2024. iv contrast (will be provided with radiology test) MRI Brain Inject, intravenously, once for 1 dose.No IV access, insert saline lock prior to beginning of sedation, infusion, injection of imaging exam.Discontinue saline lock post exam. If Pt. has a central line or IVAD, may access for administration according to line specific nursing protocol.Once exam is complete flush line and de-access according to line specific nursing protocol in the MR contrast administration guidelines link iv contrast (will be provided with radiology test) MRI Brain Localization Inject, intravenously, once for 1 dose.No IV access, insert saline lock prior to beginning of sedation, infusion, injection of imaging exam.Discontinue saline lock post exam. If Pt. has a central line or IVAD, may access for administration according to line specific nursing protocol.Once exam is complete flush line and de-access according to line specific nursing protocol in the MR contrast administration guidelines link primidone (MYSOLINE) 50 mg tablet Take 1 tablet by mouth daily at bedtime. rosuvastatin (CRESTOR) 10 mg tablet Take 1 tablet by mouth once daily. levETIRAcetam (KEPPRA) 750 mg tablet Take 2 tablets by mouth two times a day. acetaminophen (TYLENOL) 500 mg tablet 2 tablets by ORAL/FEEDING TUBE route every 6 hours. fluorometholone (FML LIQUID FILM) 0.1 % ophthalmic suspension Use 1 Drop in the left eye two times a day. multivitamin/iron/folic acid (CENTRUM ORAL) Take by mouth. gabapentin (NEURONTIN) 100 mg capsule Take 100 mg by mouth two times a day. propranolol (INDERAL) 10 mg tablet Take 15 mg by mouth two times a day. Cunningham-3 Fatty Acids-Vitamin E (FISH OIL) 1,000 mg cap Take 1 capsule by mouth. Cholecalciferol, Vitamin D3, (VITAMIN D) 1,000 unit ORAL Cap Take one(1) tablet daily. No medication comments found. CURRENT ALLERGIES: ALLERGIES No Known Allergies PHYSICAL EXAM: General appearance: well appearing, in no acute distress, alert Head: NC/AT Eyes: clear, anicteric Oropharynx: clear, no le (more content not included)... Normal [facility] MR Guidance for stereotactic localization of Brain-- W contrast Robby 12-06-2024 IMPRESSION: Localization examination. Similar residual left orbitofrontal meningioma with involvement concerning structures, as detailed. Additional small right-sided paraclinoid meningioma. Inspector Material Disposition: TRAVIS Transcribe Date/Time: Dec 06 2024 8:19A Dictated by : MELISSA SALES MD This examination was interpreted and the report reviewed and electronically signed by: MELISSA SALES MD on Dec 06 2024 8:25AM [facility] DIVISION OF RADIOLOGY * * *Final Report* * * DATE OF EXAM: Dec 06 2024 8:15AM [facility] 0289 - MRI BRAIN LOCAL W IVCON / PROCEDURE REASON: Benign meningioma (HCC) * * * * Physician Interpretation * * * * EXAMINATION: MRI BRAIN LOCAL W IVCON HISTORY: Benign meningioma TECHNIQUE: MRI brain localization protocol with axial volumetric postcontrast T1 sequence. M: [id number] MR Contrast: Elucirem Contrast Dose: 8.5 cc Route of Administration: IV COMPARISON: MRI brain 11/04/2024 RESULT: Similar residual broad-based left orbitofrontal meningioma with extracranial component extending inferiorly into the dealer support technician space along the temporalis muscle, anteriorly into the left frontal sinus, along the anterior margin of the middle cranial fossa with involvement of the intervening sphenoid bone extending into the lateral aspect of the left sphenoid sinus and posterior ethmoid labyrinth, marginating the orbital apex, and extending into the adjacent cavernous sinus and superior portion of Meckel's cave. No significant change since MRI of 11/04/2024. Residual vasogenic edema and/or encephalomalacia/gliosi s throughout the underlying left anterior temporal region. Additional small right-sided paraclinoid meningioma measuring approximately 9 mm maximum dimension. DIVISION OF RADIOLOGY Provider, [facility] - 12/06/2024 * * *Final Report* * * DATE OF EXAM: Dec 06 2024 8:15AM CAM [id number] - MRI BRAIN LOCAL W IVCON / PROCEDURE REASON: Benign meningioma (HCC) * * * * Physician Interpretation * * * * EXAMINATION: MRI BRAIN LOCAL W IVCON HISTORY: Benign meningioma TECHNIQUE: MRI brain localization protocol with axial volumetric postcontrast T1 sequence. M: [id number] MR Contrast: Elucirem Contrast Dose: 8.5 cc Route of Administration: IV COMPARISON: MRI brain 11/04/2024 RESULT: Similar residual broad-based left orbitofrontal meningioma with extracranial component extending inferiorly into the dealer support technician space along the temporalis muscle, anteriorly into the left frontal sinus, along the anterior margin of the middle cranial fossa with involvement of the intervening sphenoid bone extending into the lateral aspect of the left sphenoid sinus and posterior ethmoid labyrinth, marginating the orbital apex, and extending into the adjacent cavernous sinus and superior portion of Meckel's cave. No significant change since MRI of 11/04/2024. Residual vasogenic edema and/or encephalomalacia/gliosi s throughout the underlying left anterior temporal region. Additional small right-sided paraclinoid meningioma measuring approximately 9 mm maximum dimension. IMPRESSION IMPRESSION: Localization examination. Similar residual left orbitofrontal meningioma with involvement concerning structures, as detailed. Additional small right-sided paraclinoid meningioma. Inspector Material Disposition: TRAVIS Transcribe Date/Time: Dec 06 2024 8:19A Dictated by : MELISSA SALES MD This examination was interpreted and the report reviewed and electronically signed by: MELISSA SALES MD on Dec 06 2024 8:25AM EST [facility] MR Guidance for stereotactic localization of Brain-- W contrast IVOrdered By: [facility]cf Provider on 12-06-2024 [facility] MRI BRAIN LOCAL W IVCONon MRI BRAIN LOCAL W IVCON * * *Final Report* * * DATE OF EXAM: Dec 06 2024 8:15AM CAM 0289 - MRI BRAIN LOCAL W IVCON / PROCEDURE REASON: Benign meningioma (HCC) * * * * Physician Interpretation * * * * EXAMINATION: MRI BRAIN LOCAL W IVCON HISTORY: Benign meningioma TECHNIQUE: MRI brain localization protocol with axial volumetric postcontrast T1 sequence. M: [id number] MR Contrast: Elucirem Contrast Dose: 8.5 cc Route of Administration: IV COMPARISON: MRI brain 11/04/2024 RESULT: Similar residual broad-based left orbitofrontal meningioma with extracranial component extending inferiorly into the dealer support technician space along the temporalis muscle, anteriorly into the left frontal sinus, along the anterior margin of the middle cranial fossa with involvement of the intervening sphenoid bone extending into the lateral aspect of the left sphenoid sinus and posterior ethmoid labyrinth, marginating the orbital apex, and extending into the adjacent cavernous sinus and superior portion of Meckel's cave. No significant change since MRI of 11/04/2024. Residual vasogenic edema and/or encephalomalacia/gliosi s throughout the underlying left anterior temporal region. Additional small right-sided paraclinoid meningioma measuring approximately 9 mm maximum dimension. IMPRESSION: Localization examination. Similar residual left orbitofrontal meningioma with involvement concerning structures, as detailed. Additional small right-sided paraclinoid meningioma. Inspector Material Disposition: TRAVIS Transcribe Date/Time: Dec 06 2024 8:19A Dictated by : MELISSA SALES MD This examination was interpreted and the report reviewed and electronically signed by: MELISSA SALES MD on Dec 06 2024 8:25AM EST [id number] Normal [facility] No Panel Informationon 12-06 Radiology Study observation (narrative) [facility] OPERATIVE NOon 12-06-2024 OPERATIVE NO HNO ID: [id number] Author: NEYMAR JERONIMO MD Service: Neurosurgery Author Type: Physician Type: Operative Report Filed: 12/06/2024 12:52 Note Text: [facility] [address] [place] [address] [place] OPERATIVE REPORT NAME: Reshma Evans [facility] NO.: [id number] MASK SIMULATION DATE: 2024-12-06 RADIATION TREATMENT START DATE: 2024-12-06 RADIATION TREATMENT END DATE: 2024-12-06 NUMBER OF FRACTIONS: 1 PREOPERATIVE DIAGNOSIS: Meningioma POSTOPERATIVE DIAGNOSIS: Same OPERATION: 1 fraction mask gamma knife radiosurgery. ANESTHESIA: None SURGEON: Neymar Jeronimo M.D. - Stereotactic treatment planning. RADIATION ONCOLOGIST: Mendel Maxwell M.D. ASSISTANTS: NONE SPECIMEN: None EBL: 0 ccs OPERATIVE INDICATIONS: The full clinical history and indications for treatment were discussed in the initial neurosurgery visit note. The indications, risks, benefits, and alternatives were discussed with the patient who asked us to proceed. The patient is aware that this may be one of several staged procedures in the management of this disorder. OPERATIVE FINDINGS: Masked treatment Lesions treated: right anterior clinoid meningioma to 14 Gy Tolerated well Steroids: 10 mg PO for treatment, short taper Plan: XRT in [facility], f/up MRI brain w/wo ~ 2 months after XRT DESCRIPTION OF PROCEDURE: The patient was admitted to the Gamma Knife Center. The Leksell mask was created and a stereotactic cone-beam CT was obtained. The patient then underwent high-resolution MRI and CT imaging. The scans, including the cone-beam registration CT, were loaded in the planning computer and disco volanteksell gamma plan was used to perform fractionated radiosurgery dose planning. The lesion was treated as follows: Target 1 (rt clinoid) Location: rt clinoid Prescription: 14 Gy to the 53% local isodose line. The plan uses 13 shots covering 100% of the target. GTV Volume: 0.62 cm3 CTV Volume: 0.62 cm3 Max linear size: 1.3 cm Conformality Index (PIV/CTV) = 1.645 Complexity: Complex Gradient Index: 2.9 Number of Fractions: 1 After the usual air quality specialist procedures were performed, fractionated radiosurgery was delivered with use of the Gamma Knife. The Gamma Knife checklists and time outs were performed during this procedure in a standard manner. Neymar Jeronimo M.D. [facility] 11-28-2024 [facility] Telephone (NEAGCLM) RESHMA EVANS ([id number]) 1940 F Date Time Provider Department 11/28/24 NEYMAR JERONIMO NEAGCLM During your visit today, we recorded the following information about you: Harpreet Joseph 11/28/2024 1:12 PM Signed Patient son calling to schedule Gamma for patient. Provided contact number for Todd to schedule. Allergies As of Date: 11/28/2024 (No Known Allergies) Date Reviewed: 11/04/2024 Reviewed by: Neymar Jeronimo MD - Fully Assessed Prescriptions as of 11/28/2024 - primidone (MYSOLINE) 50 mg tablet Take 1 tablet by mouth daily at bedtime. - rosuvastatin (CRESTOR) 10 mg tablet Take 1 tablet by mouth once daily. - levETIRAcetam (KEPPRA) 750 mg tablet Take 2 tablets by mouth two times a day. - acetaminophen (TYLENOL) 500 mg tablet 2 tablets by ORAL/FEEDING TUBE route every 6 hours. - fluorometholone (FML LIQUID FILM) 0.1 % ophthalmic suspension Use 1 Drop in the left eye two times a day. - multivitamin/iron/folic acid (CENTRUM ORAL) Take by mouth. - gabapentin (NEURONTIN) 100 mg capsule Take 100 mg by mouth two times a day. - propranolol (INDERAL) 10 mg tablet Take 15 mg by mouth two times a day. - Cunningham-3 Fatty Acids-Vitamin E (FISH OIL) 1,000 mg cap Take 1 capsule by mouth. - Cholecalciferol, Vitamin D3, (VITAMIN D) 1,000 unit ORAL Cap Take one(1) tablet daily. Problem List As Of Date 11/28/2024 Noted Resolved Benign neoplasm of cerebral meninges [D32.0] 10/05/2010 SDH (subdural hematoma) (HCC) [S06.5XAA] 02/13/2024 Trauma [T14.90XA] 02/14/2024 Fall [W19.XXXA] 02/14/2024 Periorbital hematoma of left eye [H05.232] 02/14/2024 HTN (hypertension) [I10] 02/14/2024 Hyperlipidemia [E78.5] 02/14/2024 TBI (traumatic brain injury) (HCC) [S06.9XAA] 02/14/2024 Benign meningioma (HCC) [D32.9] 04/16/2024 Pre-op examination [Z01.818] 04/16/2024 Type 2 diabetes mellitus without complication, *10/07/2016 KIMBERLY (obstructive sleep apnea) [G47.33] 04/18/2024 Meningioma (HCC) [D32.9] 04/26/2024 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.*04/27/2024 Aphasia [R47.01] 04/27/2024 Provoked seizures (HCC) [R56.9] 04/28/2024 Encounter Status:Closed by JOSEPH GIORDANO on 11/28/24 [facility] CNPN Telephone ([facility]) RESHMA EVANS ([id number]) 1940 F Date Time Provider Department 11/28/24 TODD CASTRO [facility] During your visit today, we recorded the following information about you: Todd Castro RN 11/28/2024 2:52 PM Signed Date of 12/06/2024--mask Krivosheya/Hiro meningioma PRE tx MRI and CT [place] to schedule post ops Received a phone call today from the pt's son Pina who was requesting to schedule GK for his mom. Let him know we could schedule pt for next Wednesday 12/06. He agreed and we discussed the plan for GK. Went over the plan for the day of GK, directions and where to report. Made sure to remind pt to bring any medications pt may need as they will be here the majority of the day. Additionally, let them know the GK team will call them the day before with arrival time. He verbalized understanding. Todd Castro ICE PLANT OPERATOR 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 Allergies As of Date: 11/28/2024 (No Known Allergies) Date Reviewed: 11/04/2024 Reviewed by: Neymar Jeronimo MD - Fully Assessed Prescriptions as of 12/09/2024 - famotidine (PEPCID) 20 mg tablet Take 1 tablet by mouth once daily for 6 days. Patient should start on December 07, 2024. - dexAMETHasone (DECADRON) 2 mg tablet Start the day after your Gamma Knife Procedure: Decadron (dexamethasone) Take 4 mg (2 tablets) daily for 3 days. Take 2 mg (1 tablet) daily for 3 days then Stop Decadron Patient should start on December 07, 2024. - iv contrast (will be provided with radiology test) MRI Brain Inject, intravenously, once for 1 dose.No IV access, insert saline lock prior to beginning of sedation, infusion, injection of imaging exam.Discontinue saline lock post exam. If Pt. has a central line or IVAD, may access for administration according to line specific nursing protocol.Once exam is complete flush line and de-access according to line specific nursing protocol in the MR contrast administration guidelines link - iv contrast (will be provided with radiology test) MRI Brain Localization Inject, intravenously, once for 1 dose.No IV access, insert saline lock prior to beginning of sedation, infusion, injection of imaging exam.Discontinue saline lock post exam. If Pt. has a central line or IVAD, may access for administration according to line specific nursing protocol.Once exam is complete flush line and de-access according to line specific nursing protocol in the MR contrast administration guidelines link - primidone (MYSOLINE) 50 mg tablet Take 1 tablet by mouth daily at bedtime. - rosuvastatin (CRESTOR) 10 mg tablet Take 1 tablet by mouth once daily. - levETIRAcetam (KEPPRA) 750 mg tablet Take 2 tablets by mouth two times a day. - acetaminophen (TYLENOL) 500 mg tablet 2 tablets by ORAL/FEEDING TUBE route every 6 hours. - fluorometholone (FML LIQUID FILM) 0.1 % ophthalmic suspension Use 1 Drop in the left eye two times a day. - multivitamin/iron/folic acid (CENTRUM ORAL) Take by mouth. - gabapentin (NEURONTIN) 100 mg capsule Take 100 mg by mouth two times a day. - propranolol (INDERAL) 10 mg tablet Take 15 mg by mouth two times a day. - Cunningham-3 Fatty Acids-Vitamin E (FISH OIL) 1,000 mg cap Take 1 capsule by mouth. - Cholecalciferol, Vitamin D3, (VITAMIN D) 1,000 unit ORAL Cap Take one(1) tablet daily. Problem List As Of Date 11/28/2024 Noted Resolved Benign neoplasm of cerebral meninges [D32.0] 10/05/2010 SDH (subdural hematoma) (HCC) [S06.5XAA] 02/13/2024 Trauma [T14.90XA] 02/14/2024 Fall [W19.XXXA] 02/14/2024 Periorbital hematoma of left eye [H05.232] 02/14/2024 HTN (hypertension) [I10] 02/14/2024 Hyperlipidemia [E78.5] 02/14/2024 TBI (traumatic brain injury) (HCC) [S06.9XAA] 02/14/2024 Benign meningioma (HCC) [D32.9] 04/16/2024 Pre-op examination [Z01.818] 04/16/2024 Type 2 diabetes mellitus without complication, *10/07/2016 KIMBERLY (obstructive sleep apnea) [G47.33] 04/18/2024 Meningioma (HCC) [D32.9] 04/26/2024 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.*04/27/2024 Aphasia [R47.01] 04/27/2024 Provoked seizures (HCC) [R56.9] 04/28/2024 Encounter Status:Closed by TODD CASTRO on 12/09/[address] 11-21-2024 36 Prescription Request : Last medication check: 01/02/2024 Last physical exam: 06/21/2024 Next scheduled appointment: 12/20/2024 Last date of [facility]ill on this medication[facility] BRIELLERESHMA HOUSTON ([id number]) 1940 F Date Time Provider Department 11/12/24 NEYMAR JERONIMO NEAGCLM During your visit today, we recorded the following information about you: Karli Cox RN 11/12/2024 2:23 PM Addendum Spoke with patient, asked to get her son's phone # that always is with her for appt - his name is Sujatha phone # [phone], she was ok with me adding him to her emergency contacts. I asked her if Dr Maxwell's office reached out and she did not know. She said the answering machine was not working well. I spoke with Trina patient's daughter and she is aware that radiation oncology called her mom. She is aware of radiation oncology phone # [phone] - ZOHREH Joyce Dr's RN. ZOHREH Spear Lena, RN 11/12/2024 3:13 PM Signed Also called her son, Sujatha [phone] Maxwell's contact info: ZOHREH Joyce [phone]. ZOHREH Spear Lena, RN 11/13/2024 11:08 AM Addendum Called sujatha and let him know they would see Dr Maxwell for Gamma knife radiation and radiation for other howard-osseous (around the bone) component of the tumor on the left side. Provided Sujatha with radiation oncology phone # [phone] Karli Cox RN Allergies As of Date: 11/12/2024 (No Known Allergies) Date Reviewed: 11/04/2024 Reviewed by: Neymar Jeronimo MD - Fully Assessed Reason for Visit: 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ther [[id number]] Prescriptions as of 11/13/2024 - primidone (MYSOLINE) 50 mg tablet Take 1 tablet by mouth daily at bedtime. - rosuvastatin (CRESTOR) 10 mg tablet Take 1 tablet by mouth once daily. - levETIRAcetam (KEPPRA) 750 mg tablet Take 2 tablets by mouth two times a day. - acetaminophen (TYLENOL) 500 mg tablet 2 tablets by ORAL/FEEDING TUBE route every 6 hours. - fluorometholone (FML LIQUID FILM) 0.1 % ophthalmic suspension Use 1 Drop in the left eye two times a day. - multivitamin/iron/folic acid (CENTRUM ORAL) Take by mouth. - gabapentin (NEURONTIN) 100 mg capsule Take 100 mg by mouth two times a day. - propranolol (INDERAL) 10 mg tablet Take 15 mg by mouth two times a day. - Cunningham-3 Fatty Acids-Vitamin E (FISH OIL) 1,000 mg cap Take 1 capsule by mouth. - Cholecalciferol, Vitamin D3, (VITAMIN D) 1,000 unit ORAL Cap Take one(1) tablet daily. Problem List As Of Date 11/12/2024 Noted Resolved Benign neoplasm of cerebral meninges [D32.0] 10/05/2010 SDH (subdural hematoma) (HCC) [S06.5XAA] 02/13/2024 Trauma [T14.90XA] 02/14/2024 Fall [W19.XXXA] 02/14/2024 Periorbital hematoma of left eye [H05.232] 02/14/2024 HTN (hypertension) [I10] 02/14/2024 Hyperlipidemia [E78.5] 02/14/2024 TBI (traumatic brain injury) (HCC) [S06.9XAA] 02/14/2024 Benign meningioma (HCC) [D32.9] 04/16/2024 Pre-op examination [Z01.818] 04/16/2024 Type 2 diabetes mellitus without complication, *10/07/2016 KIMBERLY (obstructive sleep apnea) [G47.33] 04/18/2024 Meningioma (HCC) [D32.9] 04/26/2024 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.*04/27/2024 Aphasia [R47.01] 04/27/2024 Provoked seizures (HCC) [R56.9] 04/28/2024 Encounter Status:Closed by KARLI COX on 11/12/24 [facility] CNPN Telephone (RADRMN) RESHMA EVANS ([id number]) 1940 F Date Time Provider Department 11/12/24 MENDEL MAXWELL RADJAMIEMilena During your visit today, we recorded the following information about you: LollyWinnie 11/12/2024 3:24 PM Signed Patient's son called to speak with Rohan Varghese RN. [phone] Allergies As of Date: 11/12/2024 (No Known Allergies) Date Reviewed: 11/04/2024 Reviewed by: Neymar Jeronimo MD - Fully Assessed Reason for Visit: 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ther [[id number]] Prescriptions as of 11/13/2024 - primidone (MYSOLINE) 50 mg tablet Take 1 tablet by mouth daily at bedtime. - rosuvastatin (CRESTOR) 10 mg tablet Take 1 tablet by mouth once daily. - levETIRAcetam (KEPPRA) 750 mg tablet Take 2 tablets by mouth two times a day. - acetaminophen (TYLENOL) 500 mg tablet 2 tablets by ORAL/FEEDING TUBE route every 6 hours. - fluorometholone (FML LIQUID FILM) 0.1 % ophthalmic suspension Use 1 Drop in the left eye two times a day. - multivitamin/iron/folic acid (CENTRUM ORAL) Take by mouth. - gabapentin (NEURONTIN) 100 mg capsule Take 100 mg by mouth two times a day. - propranolol (INDERAL) 10 mg tablet Take 15 mg by mouth two times a day. - Cunningham-3 Fatty Acids-Vitamin E (FISH OIL) 1,000 mg cap Take 1 capsule by mouth. - Cholecalciferol, Vitamin D3, (VITAMIN D) 1,000 unit ORAL Cap Take one(1) tablet daily. Problem List As Of Date 11/12/2024 Noted Resolved Benign neoplasm of cerebral meninges [D32.0] 10/05/2010 SDH (subdural hematoma) (HCC) [S06.5XAA] 02/13/2024 Trauma [T14.90XA] 02/14/2024 Fall [W19.XXXA] 02/14/2024 Periorbital hematoma of left eye [H05.232] 02/14/2024 HTN (hypertension) [I10] 02/14/2024 Hyperlipidemia [E78.5] 02/14/2024 TBI (traumatic brain injury) (HCC) [S06.9XAA] 02/14/2024 Benign meningioma (HCC) [D32.9] 04/16/2024 Pre-op examination [Z01.818] 04/16/2024 Type 2 diabetes mellitus without complication, *10/07/2016 KIMBERLY (obstructive sleep apnea) [G47.33] 04/18/2024 Meningioma (HCC) [D32.9] 04/26/2024 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.*04/27/2024 Aphasia [R47.01] 04/27/2024 Provoked seizures (HCC) [R56.9] 04/28/2024 Encounter Status:Closed by KARLI COX on 11/13/24 [facility] CNOVon 11-04-2024 CNOV Office Visit (NEAGCL [place]) RESHMA EVANS ([id number]) 1940 F Date Time Provider Department 11/04/24 11:30 AM NEYMAR JERONIMOAGCLM During your visit today, we recorded the following information about you: Pulse Respiration Blood pressure Weight 60/minute 16/minute 138/84 83.2 kg Height 1.676 m Neymar Jeronimo MD 11/20/2024 10:48 AM Signed NEUROSURGERY FOLLOW UP OFFICE NOTE Neymar Jeronimo MD Date of visit: November 04, 2024 Patient Name: Ms.Miriam Ronit Evans Date of : 1940 Current Age: [age] year old Sex: female MRN/E# [id number] Last Office Visit: 08/01/2024 CLINICAL SUMMARY: * 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 Nicola Cruz - [facility] [phone] Dr[facility] [place] Dr. Cline - post op seizure, on Keppra 1500 mg bid SUBJECTIVE: History of Present Illness. Reshma Evans is a 84 year old right-handed female presenting with son. PMH including HTN, HLD, KIMBERLY, DM. Patient has a past surgical history of left frontal craniotomy for meningioma resection, exenteration of frontal sinus 09/24/[address] Lee Mckeon at [facility]. Pathology demonstrating Meningioma, meningotheliomatous-typ e (WHO Grade I). She was seen at [facility] on 02/13/2024 after a fall after stepping off the curb. She struck the left side of her face. CT brain demonstrated a small left frontal SDH. Repeat imaging was stable. She was recommended to keep her outpatient follow up appointment. She was seen on 02/19/2024 where she had been doing well since fall. She initially had MRIs ordered from Dr. Cruz with opthalmology due to the left eye exophthalmus. She noted that this had started about 2 months prior. She stated that when she looked out of the left eye that vision was a bit fuzzy. 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 Left sphenoid wing meningioma with most of its mass located away from the optic nerve. Small right anterior clinoid meningioma noted that was new from MRI in 2013. Since optic nerve was not well visualized, she was recommended to have MRI pituitary to better assess. Her CT brain showed improvement in the left lateral subdural collection, more chronic in appearance. She was seen on 04/04/2024 where she followed up with MRI imaging - vision was the same, fuzziness in the left eye. She had intermittent headaches, resolved with tylenol. Her MRI brain showed on FIESTA sequences there appears to be significant compression of the optic nerve within the optic canal secondary to bone expansion of the intraosseous component of the tumor. She underwent Left pterional craniotomy for resection of sphenoid wing meningioma, Decompression of the optic canal and lateral orbit on 04/26/2024. She had her 2 week post operative visit on 05/20/2024 where she had been doing well overall. She was discharged from [facility] today. Her incision was healing well and sutures were removed at the rehab facility. She denied any pain but sometimes had some pressure on the left side of her head since she sleeps on that side. She noticed her vision out of the left eye feels a little more clear with up close things but far away was still fuzzy. She had an upcoming appointment with Dr Cline 07/04/2024. Her optic canal was well compressed. Pathology showed Grade 1 meningioma with Ki67 of 5 %. She was recommended to follow up at 3 months post operative with MRI. She was recommended to see Dr. Barcenas for incidental rt ICA aneurysm. She was last seen on 08/01/2024 where she had been doing well overall. She felt fatigued and sometimes felt like she doesn't want to do things that she used to do. She did follow up with Dr Cline and was still on Keppra. She still had the left side head pressure some days. She felt like her left eye will sometimes feel swollen since she sleeps on her left. MRI brain showed a stable right ant clinoid meningioma with postoperative changes on the left with no evidence of nodular tumor recurrence, extensive dural thickening, postoperative and tumor involvement. Small post operative epidural fluid collection above the orbit. No significant mass effect. S (more content not included)... Normal [facility] MR Brain WO and W contrast I Mark Anthony 11-04-2024 * * *Final Report* * * DATE OF EXAM: Nov 04 2024 11:03AM AWM 0295 - MRI BRAIN WO/W IVCON / PROCEDURE REASON: Intracranial meningioma (HCC) * * * * Physician Interpretation * * * * EXAMINATION: MRI BRAIN WO/W IVCON, MRI PITUITARY WO/W IVCON CLINICAL HISTORY: Benign neoplasm of meninges (HCC) TECHNIQUE: Routine brain MRI protocol without and with contrast including diffusion images. Specific Attention to the pituitary gland MQ: MRBWOW_2 Contrast: 17 mL Dotarem IV COMPARISON: MR brain 08/01/2024 RESULT: Acute Change: There is no evidence of an acute intracranial process. Mass Lesion/ Mass Effect: Postsurgical changes from left anterior frontal and left temporal craniotomy, left orbital ceiling resection are again seen. Stable focal blood degradation products at the surgical site. Stable encephalomalacia in the left anterior frontal and temporal lobes. Stable dural thickening and enhancement over the left frontotemporal convexity, likely post operative. Again noted is extra-axial dural based enhancing mass in the left anterior frontal lobe, left superior and lateral orbit, left greater wing and lesser wing, left temporalis, left paranasal sinus, compatible with residual tumor. The portion arising from the left anterior frontal sinus has slightly enlarged, now measuring 1 cm in thickness (13:40) previously 0.7 cm. The portion in the lateral aspect of the left sphenoid sinus has slightly enlarged, now measuring 0.9 cm thickness on image 71, previously 0.7 cm. Again noted is tumor in the left optic canal and orbital apex. Stable left proptosis. The left optic nerve is likely compressed. Stable tumor in the left foramen of rotundum. The pituitary gland is normal. There is likely tumor involvement in the left cavernous sinus. Stable tumor arising from the posterolateral aspect of the right anterior clinoid measuring 1 x 0.9 cm. Chronic Change: Scattered punctate foci of increased T2 and FLAIR signal are noted in the supratentorial white matter which is a nonspecific finding, but likely represents minimal chronic microvascular ischemia. Parenchyma: There is moderate generalized parenchymal volume loss. The brain parenchyma is otherwise within normal limits of signal intensity and morphology. Ventricles: Ventriculomegaly corresponds to the degree of parenchymal volume loss. Skull Base: Craniocervical junction is normal. No significant marrow replacement process. Vasculature: Major intracranial arterial structures, and dural venous sinuses show typical flow void, suggesting patency by spin echo criteria. Other: The visualized paranasal sinuses and mastoid air cells are clear. The orbits and extracranial soft tissues are unremarkable. [facility] Provider, [facility] - 11/04/2024 * * *Final Report* * * DATE OF EXAM: Nov 04 2024 11:03AM AWM 0295 - MRI BRAIN WO/W IVCON / PROCEDURE REASON: Intracranial meningioma (HCC) * * * * Physician Interpretation * * * * EXAMINATION: MRI BRAIN WO/W IVCON, MRI PITUITARY WO/W IVCON CLINICAL HISTORY: Benign neoplasm of meninges (HCC) TECHNIQUE: Routine brain MRI protocol without and with contrast including diffusion images. Specific Attention to the pituitary gland MQ: MRBWOW_2 Contrast: 17 mL Dotarem IV COMPARISON: MR brain 08/01/2024 RESULT: Acute Change: There is no evidence of an acute intracranial process. Mass Lesion/ Mass Effect: Postsurgical changes from left anterior frontal and left temporal craniotomy, left orbital ceiling resection are again seen. Stable focal blood degradation products at the surgical site. Stable encephalomalacia in the left anterior frontal and temporal lobes. Stable dural thickening and enhancement over the left frontotemporal convexity, likely post operative. Again noted is extra-axial dural based enhancing mass in the left anterior frontal lobe, left superior and lateral orbit, left greater wing and lesser wing, left temporalis, left paranasal sinus, compatible with residual tumor. The portion arising from the left anterior frontal sinus has slightly enlarged, now measuring 1 cm in thickness (13:40) previously 0.7 cm. The portion in the lateral aspect of the left sphenoid sinus has slightly enlarged, now measuring 0.9 cm thickness on image 71, previously 0.7 cm. Again noted is tumor in the left optic canal and orbital apex. Stable left proptosis. The left optic nerve is likely compressed. Stable tumor in the left foramen of rotundum. The pituitary gland is normal. There is likely tumor involvement in the left cavernous sinus. Stable tumor arising from the posterolateral aspect of the right anterior clinoid measuring 1 x 0.9 cm. Chronic Change: Scattered punctate foci of increased T2 and FLAIR signal are noted in the supratentorial white matter which is a nonspecific finding, but likely represents minimal chronic microvascular ischemia. Parenchyma: There is moderate generalized parenchymal volume loss. The brain parenchyma is otherwise within normal limits of signal intensity and morphology. Ventricles: Ventriculomegaly corresponds to the degree of parenchymal volume loss. Skull Base: Craniocervical junction is normal. No significant marrow replacement process. Vasculature: Major intracranial arterial structures, and dural venous sinuses show typical flow void, suggesting patency by spin echo criteria. Other: The visualized paranasal sinuses and mastoid air cells are clear. The orbits and extracranial soft tissues are unremarkable. IMPRESSION IMPRESSION: Postsurgical changes in the left frontal lobe and orbit related to tumor resection are again seen. Residual tumor has slightly increased. Please refer to the body of the report. Normal pituitary gland. Inspector Material Disposition: [facility] Transcribe Date/Time: Nov 04 2024 2:04P Dictated by : LORI JUAREZ MD This examination was interpreted and the report reviewed and electronically signed by: LORI JUAREZ MD on Nov 04 2024 2:44PM [facility] MR Pituitary and Sella turci ca WO and W contrast Robby 11-04-2024 * * *Final Report* * * DATE OF EXAM: Nov 04 2024 11:03AM AW 0314 - MRI PITUITARY WO/W IVCON / PROCEDURE REASON: Benign neoplasm of meninges (HCC) * * * * Physician Interpretation * * * * EXAMINATION: MRI BRAIN WO/W IVCON, MRI PITUITARY WO/W IVCON CLINICAL HISTORY: Benign neoplasm of meninges (HCC) TECHNIQUE: Routine brain MRI protocol without and with contrast including diffusion images. Specific Attention to the pituitary gland MQ: MRBWOW_2 Contrast: 17 mL Dotarem IV COMPARISON: MR brain 08/01/2024 RESULT: Acute Change: There is no evidence of an acute intracranial process. Mass Lesion/ Mass Effect: Postsurgical changes from left anterior frontal and left temporal craniotomy, left orbital ceiling resection are again seen. Stable focal blood degradation products at the surgical site. Stable encephalomalacia in the left anterior frontal and temporal lobes. Stable dural thickening and enhancement over the left frontotemporal convexity, likely post operative. Again noted is extra-axial dural based enhancing mass in the left anterior frontal lobe, left superior and lateral orbit, left greater wing and lesser wing, left temporalis, left paranasal sinus, compatible with residual tumor. The portion arising from the left anterior frontal sinus has slightly enlarged, now measuring 1 cm in thickness (13:40) previously 0.7 cm. The portion in the lateral aspect of the left sphenoid sinus has slightly enlarged, now measuring 0.9 cm thickness on image 71, previously 0.7 cm. Again noted is tumor in the left optic canal and orbital apex. Stable left proptosis. The left optic nerve is likely compressed. Stable tumor in the left foramen of rotundum. The pituitary gland is normal. There is likely tumor involvement in the left cavernous sinus. Stable tumor arising from the posterolateral aspect of the right anterior clinoid measuring 1 x 0.9 cm. Chronic Change: Scattered punctate foci of increased T2 and FLAIR signal are noted in the supratentorial white matter which is a nonspecific finding, but likely represents minimal chronic microvascular ischemia. Parenchyma: There is moderate generalized parenchymal volume loss. The brain parenchyma is otherwise within normal limits of signal intensity and morphology. Ventricles: Ventriculomegaly corresponds to the degree of parenchymal volume loss. Skull Base: Craniocervical junction is normal. No significant marrow replacement process. Vasculature: Major intracranial arterial structures, and dural venous sinuses show typical flow void, suggesting patency by spin echo criteria. Other: The visualized paranasal sinuses and mastoid air cells are clear. The orbits and extracranial soft tissues are unremarkable. [facility] Provider, [facility] - 11/04/2024 * * *Final Report* * * DATE OF EXAM: Nov 04 2024 11:03AM AWM 0314 - MRI PITUITARY WO/W IVCON / PROCEDURE REASON: Benign neoplasm of meninges (HCC) * * * * Physician Interpretation * * * * EXAMINATION: MRI BRAIN WO/W IVCON, MRI PITUITARY WO/W IVCON CLINICAL HISTORY: Benign neoplasm of meninges (HCC) TECHNIQUE: Routine brain MRI protocol without and with contrast including diffusion images. Specific Attention to the pituitary gland MQ: MRBWOW_2 Contrast: 17 mL Dotarem IV COMPARISON: MR brain 08/01/2024 RESULT: Acute Change: There is no evidence of an acute intracranial process. Mass Lesion/ Mass Effect: Postsurgical changes from left anterior frontal and left temporal craniotomy, left orbital ceiling resection are again seen. Stable focal blood degradation products at the surgical site. Stable encephalomalacia in the left anterior frontal and temporal lobes. Stable dural thickening and enhancement over the left frontotemporal convexity, likely post operative. Again noted is extra-axial dural based enhancing mass in the left anterior frontal lobe, left superior and lateral orbit, left greater wing and lesser wing, left temporalis, left paranasal sinus, compatible with residual tumor. The portion arising from the left anterior frontal sinus has slightly enlarged, now measuring 1 cm in thickness (13:40) previously 0.7 cm. The portion in the lateral aspect of the left sphenoid sinus has slightly enlarged, now measuring 0.9 cm thickness on image 71, previously 0.7 cm. Again noted is tumor in the left optic canal and orbital apex. Stable left proptosis. The left optic nerve is likely compressed. Stable tumor in the left foramen of rotundum. The pituitary gland is normal. There is likely tumor involvement in the left cavernous sinus. Stable tumor arising from the posterolateral aspect of the right anterior clinoid measuring 1 x 0.9 cm. Chronic Change: Scattered punctate foci of increased T2 and FLAIR signal are noted in the supratentorial white matter which is a nonspecific finding, but likely represents minimal chronic microvascular ischemia. Parenchyma: There is moderate generalized parenchymal volume loss. The brain parenchyma is otherwise within normal limits of signal intensity and morphology. Ventricles: Ventriculomegaly corresponds to the degree of parenchymal volume loss. Skull Base: Craniocervical junction is normal. No significant marrow replacement process. Vasculature: Major intracranial arterial structures, and dural venous sinuses show typical flow void, suggesting patency by spin echo criteria. Other: The visualized paranasal sinuses and mastoid air cells are clear. The orbits and extracranial soft tissues are unremarkable. IMPRESSION IMPRESSION: Postsurgical changes in the left frontal lobe and orbit related to tumor resection are again seen. Residual tumor has slightly increased. Please refer to the body of the report. Normal pituitary gland. Inspector Material Disposition: [facility] Transcribe Date/Time: Nov 04 2024 2:04P Dictated by : LORI JUAREZ MD This examination was interpreted and the report reviewed and electronically signed by: LORI JUAREZ MD on Nov 04 2024 2:44PM EST [facility] MRI BRAIN WO/W IVCONon 11-04 MRI BRAIN WO/W IVCON * * *Final Report* * * DATE OF EXAM: Nov 04 2024 11:03AM AWBipin 0295 - MRI BRAIN WO/W IVCON / PROCEDURE REASON: Intracranial meningioma (HCC) * * * * Physician Interpretation * * * * EXAMINATION: MRI BRAIN WO/W IVCON, MRI PITUITARY WO/W IVCON CLINICAL HISTORY: Benign neoplasm of meninges (HCC) TECHNIQUE: Routine brain MRI protocol without and with contrast including diffusion images. Specific Attention to the pituitary gland MQ: MRBWOW_2 Contrast: 17 mL Dotarem IV COMPARISON: MR brain 08/01/2024 RESULT: Acute Change: There is no evidence of an acute intracranial process. Mass Lesion/ Mass Effect: Postsurgical changes from left anterior frontal and left temporal craniotomy, left orbital ceiling resection are again seen. Stable focal blood degradation products at the surgical site. Stable encephalomalacia in the left anterior frontal and temporal lobes. Stable dural thickening and enhancement over the left frontotemporal convexity, likely post operative. Again noted is extra-axial dural based enhancing mass in the left anterior frontal lobe, left superior and lateral orbit, left greater wing and lesser wing, left temporalis, left paranasal sinus, compatible with residual tumor. The portion arising from the left anterior frontal sinus has slightly enlarged, now measuring 1 cm in thickness (13:40) previously 0.7 cm. The portion in the lateral aspect of the left sphenoid sinus has slightly enlarged, now measuring 0.9 cm thickness on image 71, previously 0.7 cm. Again noted is tumor in the left optic canal and orbital apex. Stable left proptosis. The left optic nerve is likely compressed. Stable tumor in the left foramen of rotundum. The pituitary gland is normal. There is likely tumor involvement in the left cavernous sinus. Stable tumor arising from the posterolateral aspect of the right anterior clinoid measuring 1 x 0.9 cm. Chronic Change: Scattered punctate foci of increased T2 and FLAIR signal are noted in the supratentorial white matter which is a nonspecific finding, but likely represents minimal chronic microvascular ischemia. Parenchyma: There is moderate generalized parenchymal volume loss. The brain parenchyma is otherwise within normal limits of signal intensity and morphology. Ventricles: Ventriculomegaly corresponds to the degree of parenchymal volume loss. Skull Base: Craniocervical junction is normal. No significant marrow replacement process. Vasculature: Major intracranial arterial structures, and dural venous sinuses show typical flow void, suggesting patency by spin echo criteria. Other: The visualized paranasal sinuses and mastoid air cells are clear. The orbits and extracranial soft tissues are unremarkable. IMPRESSION: Postsurgical changes in the left frontal lobe and orbit related to tumor resection are again seen. Residual tumor has slightly increased. Please refer to the body of the report. Normal pituitary gland. Inspector Material Disposition: [facility] Transcribe Date/Time: Nov 04 2024 2:04P Dictated by : LORI JUAREZ MD This examination was interpreted and the report reviewed and electronically signed by: LORI JUAREZ MD on Nov 04 2024 2:44PM EST [id number] Normal [facility] MRI PITUITARY WO/W IVCONon 0 11-04-2024 MRI PITUITARY WO/W IVCON * * *Final Report* * * DATE OF EXAM: Nov 04 2024 11:03AM [facility] 0314 - MRI PITUITARY WO/W IVCON / PROCEDURE REASON: Benign neoplasm of meninges (HCC) * * * * Physician Interpretation * * * * EXAMINATION: MRI BRAIN WO/W IVCON, MRI PITUITARY WO/W IVCON CLINICAL HISTORY: Benign neoplasm of meninges (HCC) TECHNIQUE: Routine brain MRI protocol without and with contrast including diffusion images. Specific Attention to the pituitary gland MQ: MRBWOW_2 Contrast: 17 mL Dotarem IV COMPARISON: MR brain 08/01/2024 RESULT: Acute Change: There is no evidence of an acute intracranial process. Mass Lesion/ Mass Effect: Postsurgical changes from left anterior frontal and left temporal craniotomy, left orbital ceiling resection are again seen. Stable focal blood degradation products at the surgical site. Stable encephalomalacia in the left anterior frontal and temporal lobes. Stable dural thickening and enhancement over the left frontotemporal convexity, likely post operative. Again noted is extra-axial dural based enhancing mass in the left anterior frontal lobe, left superior and lateral orbit, left greater wing and lesser wing, left temporalis, left paranasal sinus, compatible with residual tumor. The portion arising from the left anterior frontal sinus has slightly enlarged, now measuring 1 cm in thickness (13:40) previously 0.7 cm. The portion in the lateral aspect of the left sphenoid sinus has slightly enlarged, now measuring 0.9 cm thickness on image 71, previously 0.7 cm. Again noted is tumor in the left optic canal and orbital apex. Stable left proptosis. The left optic nerve is likely compressed. Stable tumor in the left foramen of rotundum. The pituitary gland is normal. There is likely tumor involvement in the left cavernous sinus. Stable tumor arising from the posterolateral aspect of the right anterior clinoid measuring 1 x 0.9 cm. Chronic Change: Scattered punctate foci of increased T2 and FLAIR signal are noted in the supratentorial white matter which is a nonspecific finding, but likely represents minimal chronic microvascular ischemia. Parenchyma: There is moderate generalized parenchymal volume loss. The brain parenchyma is otherwise within normal limits of signal intensity and morphology. Ventricles: Ventriculomegaly corresponds to the degree of parenchymal volume loss. Skull Base: Craniocervical junction is normal. No significant marrow replacement process. Vasculature: Major intracranial arterial structures, and dural venous sinuses show typical flow void, suggesting patency by spin echo criteria. Other: The visualized paranasal sinuses and mastoid air cells are clear. The orbits and extracranial soft tissues are unremarkable. IMPRESSION: Postsurgical changes in the left frontal lobe and orbit related to tumor resection are again seen. Residual tumor has slightly increased. Please refer to the body of the report. Normal pituitary gland. Inspector Material Disposition: [facility] Transcribe Date/Time: Nov 04 2024 2:04P Dictated by : LORI JUAREZ MD This examination was interpreted and the report reviewed and electronically signed by: LORI JUAREZ MD on Nov 04 2024 2:44PM EST [id number] Normal [facility] No Panel Informationon 11-04 IMPRESSION: Postsurgical changes in the left frontal lobe and orbit related to tumor resection are again seen. Residual tumor has slightly increased. Please refer to the body of the report. Normal pituitary gland. Inspector [facility] Transcribe Date/Time: Nov 04 2024 2:04P Dictated by : LORI JUAREZ MD This examination was interpreted and the report reviewed and electronically signed by: LORI JUAREZ MD on Nov 04 2024 2:44PM EST [facility] Radiology Study observation (narrative) [facility] No Panel InformationOrdered By: [facility] Provider on 11-04-2024 [facility] 36on 10-22-2024 36 Blood pressure is excellent, continue current medications at current doses [facility] 36 Reshma stopped into the office requesting a BP check, her reading today was 123/74 pulse 70. Please advise, thank you! Patient arrived for nurse visit today and was verified by name and . Supervising provider for clinic visit Dr. Neville is taking Propanolol 15mg (1.5 mg 2x daily) for hypertension with excellent compliance and no side effects Shortness of breath no Medication compliance yes Medication Reconciliation yes BP Medication taken prior to visit no(hasn't taken it yet today) B/P Reading taken automatic Home Monitoring no Patient advised if follow up is needed, outreach will occur in [address] [facility] Progress Noteon 10-22-2024 Progress Note [address] [facility] [address] [facility] [id number] Patient arrived for nurse visit today and was verified by name and . Supervising provider for clinic visit Dr. Neville is taking Propanolol 15mg (1.5 mg 2x daily) for hypertension with excellent compliance and no side effects Shortness of breath no Medication compliance yes Medication Reconciliation yes BP Medication taken prior to visit no(hasn't taken it yet today) B/P Reading taken automatic Home Monitoring no Patient advised if follow up is needed, outreach will occur in [address] [facility] 36on 10-18-2024 36 Called pt who stated that she has issues trying to get in to sign the contract as she doesn't drive. I let her know I would upload a copy to her SmartDrive Systemshart, if her kids could help her print it out, have her sign and then re-upload it to her SmartDrive Systemshart so we can make sure it gets in her chart. Otherwise, there will be a copy at the front desk admin for her to sign when she is able to make it in to sign it. [facility] 36 Rx sent. OARRS repor t reviewed with no discrepancies. CSA needs signed. Follow up as scheduled. [place] [id number] Csa I don't see one [place] [id number] Medication name: gabapentin (Neurontin) 100 MG capsule Medication dosage: 100 mg (Miligrams Monthly quantity needed: 180 How many day supply requestin year Medication route: oral (PO) Medication administration time(s): 2 times a day (BID) If taking medication PRN, reason for taking medication: N/A If this is a controlled substance do you receive this or any other controlled medication from any other doctor or facility: No Ordering provider: CARLEE Barclay Date of last office visit: 06.21.2024 Date of next office visit: 12.20.2024 Date of last refill: (see medication tab): 07.15.2024 Updated/Validated preferred pharmacy: Yes Patient instructed to contact the pharmacy prior to picking up the medication: Yes [facility] CNOVon 08-01-2024 CNOV Office Visit (NEV) TRINH EVANSCÉSAR Cottrell ([id number]) 1940 F Date Time Provider Department 08/01/24 11:00 AM TRACY BARCENAS [facility] During your visit today, we recorded the following information about you: Pulse Respiration Blood pressure Weight 60/minute 16/minute 162/93 82.4 kg Tracy Barcenas MD 08/27/2024 11:24 PM Signed [facility] Initial Visit Reshma Evans PSYCHIATRIC#: [id number] Date of Service: 08/01/2024 Primary Care Provider: Zoë Kaplan NP, [employer] The patient was referred by Zoë Kaplan CNP for opinion regarding a 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 I will provide a written report of my findings to the referring through letter, e communication, or epic. OUTPATIENT CONSULTATION Reason for Visit: R ICA 5 mm intracranial aneurysm Handedness: right-handed Ms Evans is an 84 year old woman with multiple vascular risk factors, including hypertension, hyperlipidemia, DM and KIMBERLY. History also notable for left frontal craniotomy for meningioma resection; WHO grade I, in 2010; traumatic left frontal SDH in 02/2024; left pterional craniotomy for resection of sphenoid wing meningioma and decompression of the optic canal and lateral orbit in 04/2024. The meningioma was again WHO grade I. 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 Aneurysm risk factors: Family History: Subarachnoid hemorrhage: No Aneurysms: no Stroke: No Vascular malformations: No Other neurologic diseases: No Personal history: Hypertension: yes Coronary artery disease: no Diabetes: yes Dyslipidemia: yes Tobacco use: no Recreational drug use: no Stroke: no Previously ruptured intracranial aneurysm: no Past Medical History: ACTIVE PROBLEM LIST Benign Neoplasm of Cerebral Meninges (Hcc) Sdh (Subdural Hematoma) (Hcc) Trauma Fall Periorbital Hematoma of Left Eye Htn (Hypertension) Hyperlipidemia Tbi (Traumatic Brain Injury) (Hcc) Benign Meningioma (Hcc) Pre-Op Examination Type 2 Diabetes Mellitus Without Complication, Without Long-Term Current Use of Insulin (Hcc) Kimberly (Obstructive Sleep Apnea) Meningioma (Hcc) Aneurysm of Anterior Communicating Artery Aphasia Provoked Seizures (Hcc) PAST SURGICAL HISTORY Procedure Laterality Date ARTHRP KNE CONDYLEANDPLATU MEDIALANDLAT COMPARTMENTS 07/10/1979 right BRAIN SURGERY HX 04/26/2024 Left pterional craniotomy PAST SURGICAL HISTORY OF Bilateral total knees RECONSTRUCT CLEFT PALATE Infancy RECONSTRUCTION ROTATOR CUFF AVULSION CHRONIC 07/10/2007 right REPAIR CLEFT LIP Infancy REVISE MEDIAN N/CARPAL TUNNEL SURG Allergies: Patient has no known allergies. Medications: Current Outpatient Medications Medication Sig cyanocobalamin, vitamin B-12, (VITAMIN B-12 ORAL) Take by mouth once daily. levETIRAcetam (KEPPRA) 750 mg tablet Take 2 tablets by mouth two times a day. primidone (MYSOLINE) 50 mg tablet Take 1 tablet by mouth daily at bedtime. acetaminophen (TYLENOL) 500 mg tablet 2 tablets by ORAL/FEEDING TUBE route every 6 hours. fluorometholone (FML LIQUID FILM) 0.1 % ophthalmic suspension Use 1 Drop in the left eye two times a day. multivitamin/iron/folic acid (CENTRUM ORAL) Take by mouth. gabapentin (NEURONTIN) 100 mg capsule Take 100 mg by mouth two times a day. propranolol (INDERAL) 10 mg tablet Take 15 mg by mouth two times a day. Cunningham-3 Fatty Acids-Vitamin E (FISH OIL) 1,000 mg cap Take 1 capsule by mouth. Cholecalciferol, Vitamin D3, (VITAMIN D) 1,000 unit ORAL Cap Take one(1) tablet daily. ascorbic acid (VITAMIN C) 500 mg ORAL tablet Take one(1) tablet daily. rosuvastatin (CRESTOR) 10 mg tablet Take 1 tablet by mouth once daily. No current facility-administered medications for this visit. Social History Tobacco Use Smoking status: Never Passive exposure: Never Smokeless tobacco: Never Vaping Use Vaping status: Never Used Substance Use Topics Alcohol use: Not Currently Comment: occasional/social Drug use: No Review of Systems ROS negative unless otherwise noted in HPI Patient Entered Questionnaires PROMIS/NeuroQoL Score Percentiles Depression Screening: PHYSICAL EXAMINATION BP 162/93 (BP Site: Left Arm, BP Position: Sitting, BP Cuff Size: Large Adult) Pulse 60 Resp 16 Wt 82.4 kg (181 lb 10.5 oz) SpO2 98% BMI 29.32 kg/m? General: The patient was well-groomed, appeared to be of stated age, and was in no acute distress. Cardiovascular: Regular heart rate and rhythm. Radial pulses normal. Respiratory: Normal breaths and breathing effort. No apparent dyspnea on exam. Head and neck: Atraumatic and normocephalic. Normal and symmetric cervical range of motion. Integuments: No hematoma or ecchymoses. Neurological exam: - Awak (more content not included)... [facility] CNOV Office Visit (NEAGCL M) NATHANRESHMA ([id number]) 1940 F Date Time Provider Department 08/01/24 10:30 AM NEYMAR JERONIMO NEAGCLM During your visit today, we recorded the following information about you: Pulse Respiration Blood pressure Weight 60/minute 16/minute 162/93 82.4 kg Neymar Jeronimo MD 08/02/2024 10:40 AM Signed NEUROSURGERY FOLLOW UP OFFICE NOTE Neymar Jeronimo MD Date of visit: August 01, 2024 Patient Name: Ms.Miriam Ronit Evans Date of : 1940 Current Age: [age] year old Sex: female MRN/E# [id number] Last Office Visit: 05/20/2024 CLINICAL SUMMARY: * 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 Nicola Cruz - [facility] [phone] Dr. Cline - post op seizure, on Keppra 1500 mg bid SUBJECTIVE: History of Present Illness. Reshma Evans is a 84 year old female presenting . PMH including HTN, HLD, KIMBERLY, DM. Patient has a past surgical history of left frontal craniotomy for meningioma resection, exenteration of frontal sinus 09/24/[address] Lee Mckeon at [facility]. Pathology demonstrating Meningioma, meningotheliomatous-typ e (WHO Grade I). She was seen at [facility] on 02/13/2024 after a fall after stepping off the curb. She struck the left side of her face. CT brain demonstrated a small left frontal SDH. Repeat imaging was stable. She was recommended to keep her outpatient follow up appointment. She was seen on 02/19/2024 where she had been doing well since fall. She initially had MRIs ordered from Dr. Cruz with opthalmology due to the left eye exophthalmus. She noted that this had started about 2 months prior. She stated that when she looked out of the left eye that vision was a bit fuzzy. 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 Left sphenoid wing meningioma with most of its mass located away from the optic nerve. Small right anterior clinoid meningioma noted that was new from MRI in 2013. Since optic nerve was not well visualized, she was recommended to have MRI pituitary to better assess. Her CT brain showed improvement in the left lateral subdural collection, more chronic in appearance. She was seen on 04/04/2024 where she followed up with MRI imaging - vision was the same, fuzziness in the left eye. She had intermittent headaches, resolved with tylenol. Her MRI brain showed on FIESTA sequences there appears to be significant compression of the optic nerve within the optic canal secondary to bone expansion of the intraosseous component of the tumor. She underwent Left pterional craniotomy for resection of sphenoid wing meningioma, Decompression of the optic canal and lateral orbit on 04/26/2024. She had her 2 week post operative visit on 05/20/2024 where she had been doing well overall. She was discharged from [facility] today. Her incision was healing well and sutures were removed at the rehab facility. She denied any pain but sometimes had some pressure on the left side of her head since she sleeps on that side. She noticed her vision out of the left eye feels a little more clear with up close things but far away was still fuzzy. She had an upcoming appointment with Dr Cline 07/04/2024. Her optic canal was well compressed. Pathology showed Grade 1 meningioma with Ki67 of 5 %. She was recommended to follow up at 3 months post operative with MRI. She was recommended to see Dr. Barcenas for incidental rt ICA aneurysm. Today she reports that she has been doing well. She does still feel fatigued and sometimes feels like she doesn't want to do things that she used to do. She did follow up with Dr Cline. She is currently on Keppra still. She still has the left side head pressure some days. She feels like her left eye will sometimes feel swollen since she sleeps on her left. Keppra 1500mg bid PAIN EVALUATION 08/01/2024 1056 Pain Level: 5 Pain Location: Eye-Left Duration Units: Months Frequency: Continuous Intervention/Comfort measure: Medication PAST MEDICAL HISTORY Diagnosis Date Benign meningioma (HCC) BPPV (benign paroxysmal positional vertigo) Brain tumor (HCC) Diabetes (HCC) Epilepsy (HCC) HTN (hypertension) (more content not included)... [facility] CNPNon 08-01-2024 [facility] Telephone (NEAGCLM) RESHMA EVANS ([id number]) 1940 F Date Time Provider Department 08/01/24 NEYMAR JERONIMO NEAGCLM During your visit today, we recorded the following information about you: Karli Cox RN 08/01/2024 3:[address] Matson's office - ophthalmology [phone] - she is seeing him on 08/14/2023 - asked that after she sees if they can fax stuff to us. They have our fax # . ZOHREH Spear Lena, RN 10/21/2024 8:[address] Pompa office to get visit notes on patient for her eye exam. ZOHREH Spear Lena, RN 11/04/2024 9:34 AM Signed Called [facility] - patient has not had visual field study done since February 09, 2024. We already have this one. 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 - primidone (MYSOLINE) 50 mg tablet Take 1 tablet by mouth daily at bedtime for 10 days. Bridge supply - rosuvastatin (CRESTOR) 10 mg tablet Take 1 tablet by mouth once daily. - cyanocobalamin, vitamin B-12, (VITAMIN B-12 ORAL) Take by mouth once daily. - levETIRAcetam (KEPPRA) 750 mg tablet Take 2 tablets by mouth two times a day. - acetaminophen (TYLENOL) 500 mg tablet 2 tablets by ORAL/FEEDING TUBE route every 6 hours. - fluorometholone (FML LIQUID FILM) 0.1 % ophthalmic suspension Use 1 Drop in the left eye two times a day. - multivitamin/iron/folic acid (CENTRUM ORAL) Take by mouth. - gabapentin (NEURONTIN) 100 mg capsule Take 100 mg by mouth two times a day. - propranolol (INDERAL) 10 mg tablet Take 15 mg by mouth two times a day. - Cunningham-3 Fatty Acids-Vitamin E (FISH OIL) 1,000 mg cap Take 1 capsule by mouth. - Cholecalciferol, Vitamin D3, (VITAMIN D) 1,000 unit ORAL Cap Take one(1) tablet daily. - ascorbic acid (VITAMIN C) 500 mg ORAL tablet Take one(1) tablet daily. Problem List As Of Date 08/01/2024 Noted Resolved Benign neoplasm of cerebral meninges [D32.0] 10/05/2010 SDH (subdural hematoma) (HCC) [S06.5XAA] 02/13/2024 Trauma [T14.90XA] 02/14/2024 Fall [W19.XXXA] 02/14/2024 Periorbital hematoma of left eye [H05.232] 02/14/2024 HTN (hypertension) [I10] 02/14/2024 Hyperlipidemia [E78.5] 02/14/2024 TBI (traumatic brain injury) (HCC) [S06.9XAA] 02/14/2024 Benign meningioma (HCC) [D32.9] 04/16/2024 Pre-op examination [Z01.818] 04/16/2024 Type 2 diabetes mellitus without complication, *10/07/2016 KIMBERLY (obstructive sleep apnea) [G47.33] 04/18/2024 Meningioma (HCC) [D32.9] 04/26/2024 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.*04/27/2024 Aphasia [R47.01] 04/27/2024 Provoked seizures (HCC) [R56.9] 04/28/2024 Encounter Status:Closed by KARLI COX on 08/01/24 [facility] MRI BRAIN WO/W IVCONon 08-01 MRI BRAIN WO/W IVCON * * *Final Report* * * DATE OF EXAM: Aug 01 2024 10:33AM A1M 0295 - MRI BRAIN WO/W IVCON / PROCEDURE REASON: Intracranial meningioma (HCC) * * * * Physician Interpretation * * * * EXAMINATION: MRI BRAIN WO/W IVCON CLINICAL HISTORY: Remote left frontal craniotomy for resection of WHO grade 1 meningioma and subsequent left pterional craniotomy for resection of sphenoid wing meningioma 04/26/2024. Known right anterior clinoid meningioma. TECHNIQUE: Routine brain MRI protocol without and with contrast including diffusion images. MQ: [id number] Contrast: 8 mL Elucirem IV COMPARISON: 04/26/2024 RESULT: Acute Change: There is no evidence of an acute intracranial process. Hemorrhage: Small amount of chronic blood byproducts noted along the margins of the encephalomalacia in the left frontal pole on the gradient echo axial images. Mass Lesion/ Mass Effect: Again noted are left frontal and left frontotemporal craniotomy defects and a small bony defect along the lateral margin of the greater wing of the left sphenoid bone. Localized encephalomalacia is again noted involving gonzalez and white matter of the left temporal pole and medial and orbital frontal surface of the left frontal pole. There continues to be residual extra-axial soft tissue mass along the greater wing of the left sphenoid bone and left cavernous sinus which extends in a confluent fashion through the greater wing of the left sphenoid bone and ventral floor of the left middle cranial fossa into the extraconal space of the left orbit and left dealer support technician space. This mass is again noted to be hypointense on all pulse sequences and prominently enhances with gadolinium. When compared to the prior study, the large lobulated components along the greater wing of the left sphenoid bone, squamous portion of the left temporal bone, and smaller contiguous components along the lesser wing of the left sphenoid bone and orbital plate of the left frontal bone have been resected. The the residual component along the left cavernous sinus and greater wing of the left sphenoid bone are plaque-like in configuration without significant mass effect on the adjacent parenchyma. There is now somewhat more prominent dural thickening overlying the ventral left frontal convexity and ventral inferior aspect of the left frontal pole with this is discordant in signal intensity characteristics from the above-described mass suggesting this is postoperative in nature. No significant mass effect on the underlying parenchyma. A separate extra-axial dural based soft tissue mass again is noted along the lateral dorsal superior margins of the right anterior clinoid process which follows similar signal intensity characteristics to the above-described residual mass suggesting residual separate meningioma. Overall, this latter mass measures approximately 1.0 x 0.9 x 1.2 cm in greatest AP, transverse, and CC dimensions, respectively. When compared to the prior study, this is not significantly changed in size, configuration or signal intensity characteristics. There continues to be only mild mass effect on the overlying dorsal orbital frontal gyrus. No impact on the right optic nerve. There is no evidence of an intracranial mass elsewhere. No abnormal parenchymal or leptomeningeal enhancement is appreciated otherwise following gadolinium administration. Chronic Change: Stable encephalomalacia in the left frontal and temporal poles as outlined above. Scattered small patchy foci of hyperintensity are noted otherwise in the supratentorial white matter on FLAIR and T2 which are nonspecific but likely represent mild chronic microvascular ischemia in view of the patient's chronologic age. Parenchyma: No significant volume loss for age. The brain parenchyma is otherwise within normal limits of signal intensity and morphology. Ventricles: Normal caliber and morphology. Skull Base: Hypothalamic and pituitary region are grossly normal. Craniocervical junction is normal. No significant marrow replacement process. Vasculature: Major intracranial arterial structures, and dural venous sinuses show typical flow void, suggesting patency by spin echo criteria. Other: Again noted is left proptosis related to the orbital extension of the intraosseous meningioma. Bilateral cataract surgery is again noted. IMPRESSION: Postop changes following decompression of the left sphenoid intraosseous meningioma since 04/26/2024 with stable left proptosis and no significant residual mass effect on the underlying left frontal and temporal lobes. Stable small right anterior clinoid process meningioma. Inspector Material Disposition: [facility] Transcribe Date/Time: Aug 03 2024 12:11P Dictated by : KEATON MOJICA MD This examination was interpreted and the report reviewed and electronically signed by: KEATON MOJICA MD on Aug 03 2024 12:39PM EST [id number] [facility] 36on 07-25-2024 36 Noted. Thank you. Normal [facility] 36 Spoke to Reshma, she is not taking Simvastatin, aware now that Rosuvastatin replaced it. Offered to schedule NV to have her bring in all of her meds to go over them but she declined. She thinks she is all set now. Normal [facility] [employer] [facility] 36on 07-24-2024 36 Left a message to return call. Can you please attempt to call her tomorrow? Thank you! [place] [address] Rx sent. Thank you. [place] [address] Notified, yes send r x to [facility]. ----- Message from IFEANYI Barclay CNP sent at 07/24/2024 7:12 AM EST ----- Bad cholesterol levels have improved. Continue current dose of Rosuvastatin. Does she want her refill to [facility]? Liver enzymes are normal. [place] [address] Blood pressure and heart rate are good. Please make sure she is not taking both Simvastatin and Rosuvastatin. The Rosuvastatin was to be taken in place of her Simvastatin for her cholesterol. [place] [address]on 07-23-2024 36 Reshma was in today for blood work, but she also wanted to get her blood pressure checked as she thought that she was on some blood pressure medication. She had thought her rosuvastatin was a bp medication. Her reading today was 126/81 pulse 64. Please advise. Thank you! Patient arrived for nurse visit today and was verified by name and . Supervising provider for clinic visit CARLEE Barclay is currently not taking any anti- hypertensive medications Shortness of breath no B/P Reading taken automatic Home Monitoring yes Patient advised if follow up is needed, outreach will occur in 48 hours [place] [address] Rescheduled missed l ab appt. [place] [address] Rescheduled her miss ed lab appt yesterday for today. Needed prior to refill. Patient understands. [place] [address] Medication name: Rosuvastatin crestor 10 mg tablet completely out Medication dosage: 10 mg (Miligrams Monthly quantity needed: 30 How many day supply requestin days Medication route: oral (PO) Medication administration time(s): Take 1 tablet (10 mg) by mouth daily. If taking medication PRN, reason for taking medication: N/A If this is a controlled substance do you receive this or any other controlled medication from any other doctor or facility: N/A Ordering provider: Zoë Kaplan CNP Date of last office visit: 07.04.24 Date of next office visit: 12.20.24 Date of last refill: (see medication tab): 06.24.24 Updated/Validated preferred pharmacy: Yes Patient instructed to contact the pharmacy prior to picking up the medication: Yes [facility] Progress Noteon 07-23-2024 Progress Note [address] [place] [address] [place] [address] Patient arrived for nurse visit today and was verified by name and . Supervising provider for clinic visit CARLEE Barclay is currently not taking any anti- hypertensive medications Shortness of breath no B/P Reading taken automatic Home Monitoring yes Patient advised if follow up is needed, outreach will occur in [address] [facility] Progress Note Venipuncture complet ed by [facility]. [facility] 36on 07-15-2024 36 Rx sent for Gabapent in. OARRS report reviewed with no discrepancies. CSA needs signed. Rx was sent for Propranolol for a 90 day supply plus a refill to [email or web address] at the end of June. Due to have cholesterol levels rechecked around 07/22/24- I see lab visit on schedule. Will refill Rosuvastatin pending repeat lab results. [facility] 36 Ordering provider: Zoë Kaplan Date of last office visit: 06/21/24 Date of next office visit: 07/22/23 Updated/Validated preferred pharmacy: Yes [facility] Patient instructed to contact the pharmacy prior to picking up the medication: N/A (1) Medication name: gabapentin (Neurontin) 100 MG capsule Medication dosage: 100 mg (Miligrams Monthly quantity needed: 60 How many day supply requestin Medication route: oral Medication administration time(s): Take 1 capsule (100 mg) by mouth 2 times daily. If taking medication PRN, reason for taking medication: N/A If this is a controlled substance do you receive this or any other controlled medication from any other doctor or facility: N/A Date of last refill (see medication tab): 02/12/24 (2) Medication name: propranolol (Inderal) 10 MG tablet Medication dosage: 10 mg (Miligrams Monthly quantity needed: 90 How many day supply requestin Medication route: oral (PO) Medication administration time(s): Take 1.5 tablets (15 mg) by mouth 2 times daily. If taking medication PRN, reason for taking medication: N/A If this is a controlled substance do you receive this or any other controlled medication from any other doctor or facility: N/A Date of last refill (see medication tab): 06/21/24 (3) Medication name: rosuvastatin (Crestor) 10 MG tablet Medication dosage: 10 mg (Miligrams Monthly quantity needed: 30 How many day supply requestin days Medication route: oral (PO) Medication administration time(s): daily If taking medication PRN, reason for taking medication: N/A If this is a controlled substance do you receive this or any other controlled medication from any other doctor or facility: N/A [facility]see [facility] tab[facility] Office Visit (RENATEBA ) RESHMA EVANS ([id number]) 1940 F Date Time Provider Department 07/04/24 11:00 AM GERALD CLINE During your visit today, we recorded the following information about you: Pulse Respiration Blood pressure Weight 76/minute 16/minute 149/85 77.6 kg Height 1.676 m Gerald Cline MD 07/04/2024 12:04 PM Signed [facility] Patient Name: Reshma Evans Date of : 1940 ESTABLISHED EPILEPSY CLINIC NOTE 07/04/2024 11:00 AM Reason for Visit: New Patient and Hospital Follow Up Clinical Summary: Ms. Evans is a 83 year old right-handed female seen in [facility]. At today's visit, the patient is accompanied by: son HISTORY OF PRESENT ILLNESS Handedness: right-handed Age of onset: 83 years Seizure History and Evolution 04/30/24 - HPI from inpatient consultation by pr - 83 year old year old female presents with seizures after resection of meningioma. Timeline history: 09/25/2010 - MRI BRAIN W WO - Interval resection of extra-axial enhancing mass lesion located along the medial anterior aspect left frontal lobe. 08/05/2013 - MRI BRAIN W WO - There has been interval development of a small cystic encephalomalacia within the paramedian anterior inferior left frontal lobe in the region of prior meningioma resection. 02/07/24 - MRI BRAIN W WO - Left sphenoid wing mass, likely a meningioma with mild mass effect and mild signal changes of the left temporal lobe. Involvement of the left greater wing of the sphenoid wing with extension into left extraconal orbit as well as extension to the left orbital apex. Due to motion, effect on the optic nerve is poorly assessed. Left exophthalmos is noted. Extensive dural thickening and enhancement is nonspecific, though likely related to mass, either neoplastic (such as meningiomatosis) or reactive. See body of report for additional details. Neurosurgical evaluation is suggested. 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 Chronic parenchymal changes as discussed. 02/13/24-02/14/24 - admission - Patient was evaluated in the ED at [facility] on 02/13/2024 after a ground level fall. As a part of her workup, she would undergo CT imaging of her brain, facial bones, and cervical spine. She also had X-rays completed of her chest, pelvis, both hips, and left knee. These imaging studies would reveal an acute small left frontal subdural hematoma (brain injury/bleed). Due to this injury, she was admitted under the trauma surgery service to the regular nursing floor for further monitoring. Neurosurgery was consulted to manage her brain injury. She would have a repeat CT scan of the brain completed which was found to be stable. Ultimately her injury was treated conservatively with non-operative management. She would not require any medication for seizure prophylaxis. She tolerated a regular diet and worked with physical and occupational therapy. They would recommend home health care at her time of discharge. She was then deemed medically stable for discharge home with home health care by the attending trauma surgeon on 02/14/2024. She will need to follow up with her neurosurgeon on 02/19/2024 for routine follow up care. 04/26/24 - brief op note - Left pterional craniotomy for resection of sphenoid wing meningioma Decompression of the optic canal and lateral orbit 04/27/24 - PA-C NSG - Seen this am. Patient had been confused and had been improved but seen with nurse and then with NSICU TECHNICAL SALES ADVISOR and patient with some ? Delirium and ? Word finding difficulty. Able to answer her name to me, but then when seen with NSICU TECHNICAL SALES ADVISOR she was not. Able to intermittently answer location and month. Not able to now. Perseverates on someone's name but cannot discern. She says no when asked of headaches, nausea. 04/28/24 - Neuro ICU - 04/28: Seizures captured on EEG overnight. Keppra increased. Will call for BEM check later today 04/29/24 - Neuro ICU - 04/29: BEM overnight with no seizures. No acute events overnight. NSGY plan to transfer to floor today. Will monitor EEG through tomorrow am and will d/c if remains negative. 04/26/24 - BEM - Continuous Slow, Generalized, Maximum, Left hemisphere PLEDs, Regional, Left temporal region Background Slow Interictal: Asymmetry, Increased Beta, left frontotemporal Continuous Slow, Generalized, Maximum, left hemisphere PLEDs with Overriding Fast, Regional, left frontotemporal Ictal: EEG Seizure, Regional, left frontotemporal No Clinical Signs Asymmetry, Increased Beta, left frontotemporal Continuous Slow, Generalized, Maximum, left hemisphere Intermittent Rhythmic Slow, Regional, Right fronto-temporal Background Slow Interictal: Asymmetry, Increased Beta, left frontotemporal Continuous (more content not included)... [facility] 36on 06-25-2024 36 Spoke to patient, no questions. [facility] [address] [facility] 36 Name of caller: Jeanie moulton Contact phone number: [phone] Relationship to Patient: patient Provider: Rachid Neville MD Practice: [facility] Chief Complaint/Reason for Call: Pt called to ask if office can call her to let her know once levETIRAcetam (Keppra) 750 MG tablet has been sent to [facility]. She is also asking for propranolol (Inderal) 10 MG tablet to be sent to [facility] instead of [facility] as well due to needing it right away. Please advise. Best time of day caller can be reached: Any Patient advised that office/PCP has 24-48 business hours to return their call: Yes [facility] 36 Patient stated that they had eye surgery and were told they had a seizure during. Patient stated that they have been out of this medication, would like to get refill as soon as possible. Medication name: levETIRAcetam (Keppra) 750 MG tablet Medication dosage: 1500 mg (Miligrams Monthly quantity needed: 120 How many day supply requestin days Medication route: oral (PO) Medication administration time(s): 2 times a day (BID) If taking medication PRN, reason for taking medication: N/A If this is a controlled substance do you receive this or any other controlled medication from any other doctor or facility: No Ordering provider: Prescribed by hospital Date of last office visit: 06/21/2024 Date of next office visit: 12/20/2024 Date of last refill: (see medication tab): 05/03/2024 Updated/Validated preferred pharmacy: Yes Patient instructed to contact the pharmacy prior to picking up the medication: Yes [facility] 36on 06-24-2024 36 Rx sent and future l ab orders signed. Simvastatin removed from medication list. [facility] 36 Patient is agreeable , scheduled in 4 weeks, orders and med pended, pharmacy verified. [facility] 36 ----- Message from IFEANYI Barclay CNP sent at 06/24/2024 7:27 AM EST ----- Levetiracetam level is elevated at 60.6. Recommend consulting with specialist prescribing the medication for possible dose adjustment. Bad cholesterol levels are high, but other cholesterol levels are good. Recommend switching from Simvastatin to Rosuvastatin 10 mg daily and rechecking levels again in 4 weeks. Blood sugar was 110. Kidney function normal. Normal liver enzymes. Urine protein is normal. [facility] Comprehensive metabolic 1998 panelon 06-23-2024 Albumin [Mass/Vol] 4 g/dL 3.6 - 5.1 g/dL [facility] Albumin/Globulin [Mass ratio] 1.6 {ratio} [facility] ALP [Catalytic activity/Vol] 57 U/L 37 - 153 U/L [facility] ALT [Catalytic activity/Vol] 8 U/L 6 - 29 U/L [facility] AST [Catalytic activity/Vol] 14 U/L 10 - 35 U/L [facility] Bilirubin [Mass/Vol] 0.5 mg/dL 0.2 - 1 .2 mg/dL [facility] Calcium [Mass/Vol] 9.3 mg/dL 8.6 - 10. 4 mg/dL [facility] Chloride [Moles/Vol] 105 mmol/L 98 - 11 0 mmol/L [facility] CO2 [Moles/Vol] 31 mmol/L 20 - 32 mmol/L [facility] Creatinine [Mass/Vol] 0.83 mg/dL 0.60 - 0.95 mg/dL [facility] GFR/1.73 sq M.predicted among non-blacks MDRD (S/P/Bld) [Vol rate/Area] 69 mL/min/{1.73_m2} > OR = 60 mL/min/1.73m 2 [facility] Globulin (S) [Mass/Vol] 2.5 g/dL [facility] Glucose [Mass/Vol] 110 mg/dL High 65 - 99 mg/dL [facility] Comment on above: Fasting reference interval For someone without known diabetes, a glucose value between 100 and 125 mg/dL is consistent with prediabetes and should be confirmed with a follow-up test. Potassium [Moles/Vol] 4 mmol/L 3.5 - 5.3 mmol/L [facility] Protein [Mass/Vol] 6.5 g/dL 6.1 - 8.1 g/dL [facility] Sodium [Moles/Vol] 143 mmol/L 135 - 146 mmol/L [facility] Urea nitrogen [Mass/Vol] 14 mg/dL 7 - 25 mg/dL [facility] Urea nitrogen/Creatinine [Mass ratio] SEE NOTE: [facility] Comment on above: Not Reported: BUN an d Creatinine are within reference range. LEVETIRACETAM LEVELon 2023 levETIRAcetam [Mass/Vol] 60.6 ug/mL High [facility] Comment on above: Brivaracetam (Briviact(R), Rikelta(R)) exhibits significant cross-reactivity in the Levetiracetam (Keppra(R), Spritam(R)) immunoassay. If Brivaracetam has been prescribed, order test code 39527 Levetiracetam by LCMSMS. Lipid 1996 panelon 4 Cholesterol [Mass/Vol] 196 mg/dL [facility] - 200 mg/dL [facility] Cholesterol in HDL [Mass/Vol] 54 mg/dL > OR = 50 [facility] Cholesterol in LDL [Mass/Vol] 117 mg/dL High mg/dL (calc) [facility] Comment on above: Reference range: <10 0 Desirable range <100 mg/dL for primary prevention; <70 mg/dL for patients with CHD or diabetic patients with > or = 2 CHD risk factors. LDL-C is now calculated using the Eliel-Olguin calculation, which is a validated novel method providing better accuracy than the Friedewald equation in the estimation of LDL-C. Eliel SS et al. KAYLEE. 2013;310(19): 8227-9096 (http://[employer]/faq/ZBY121) Cholesterol non HDL [Mass/Vol] 142 mg/dL High [facility] Comment on above: For patients with di abetes plus 1 major ASCVD risk factor, treating to a non-HDL-C goal of <100 mg/dL (LDL-C of <70 mg/dL) is considered a therapeutic option. Cholesterol.total/Chol esterol in HDL [Mass ratio] 3.6 {ratio} [facility] Triglyceride [Mass/Vol] 136 mg/dL [facility] - 150 mg/dL [facility] Microalbumin/Creatinine rati o panel (U)on 06-23-2024 Albumin DL <= 20 mg/L (U) [Mass/Vol] 0.7 mg/dL See Note: [facility] Comment on above: Reference Range: Reference Range Not established Albumin/Creatinine (U) [Mass ratio] 8 [facility] Comment on above: The ADA defines abnormalities in albumin excretion as follows: Albuminuria Category Result (mg/g creatinine) Normal to Mildly increased <30 Moderately increased 30-299 Severely increased > OR = 300 The ADA recommends that at least two of three specimens collected within a 3-6 month period be abnormal before considering a patient to be within a diagnostic category. Creatinine (U) [Mass/Vol] 84 mg/dL 20 - 275 mg/dL [facility] No Panel Informationon 06-23 Interpretation and review of laboratory results Abnormal [facility] [employer] 37on 06-21-2024 37 Personalized Preventative Plan for Reshmacésar Evans - 06/21/2024 Medicare offers a range of preventative health benefits. Some of the tests and screenings are paid in full while others may be subject to a deductible, co-insurance, and / or copay. Some of these benefits include a comprehensive review of your medical history including lifestyle, illnesses that may run in your family, and various assessments and screenings as appropriate. After reviewing your medical record and screening and assessments performed today, your provider may have ordered immunizations, labs, imaging, and / or referrals for you. A list of these orders (if applicable) as well as your Preventative Care list are included within your After Visit Summary for your review. Other Preventative Recommendations: A preventive eye exam by an community support specialist is recommended every 1-2 years to screen for glaucoma, cataracts, macular degeneration, and other eye disorders. A preventive dental visit is recommended every 6 months. Try to get at least 150 minutes of exercise per week or 10,000 steps per day on a pedometer. You need 1200-1500mg of calcium and 4369-9614 international units of vitamin D per day. It is possible to meet your calcium requirement with diet alone, but a vitamin D supplement is usually necessary to meet this goal. When exposed to the sun, use a sunscreen that protects against both UVA and UVB radiation with an SPF of 30 or greater. Reapply every 2-3 hours or after sweating, drying off with a towel, or swimming. Always wear a seat belt when traveling in a car. Always wear a helmet when riding a bicycle or a motorcycle [facility] Office Visiton 06-21-2024 Follow-up visit [id number] Reshma Evans 1940 F Date Provider Department Center 06/21/2024 [id number] BRICENO [facility] Family History Problem Relation Age of Onset No Known Problems Mother No Known Problems Father High Blood Pressure Brother High Blood Pressure Sister Family Status - Relation Status Age at Mother Father Brother Sister Level of Service:G0439 ME PPPS, SUBSEQ VISIT Reason for Visit and Comments: Medicare Annual Wellness Visit Subsequent [677] Health Maintenance [872] - RSV- not done Derm- 3rd Covid- Blood Work [717374] [facility] Progress Noteon 06-21-2024 Progress Note Patient verified by last name and . [facility] Progress Note [facility] [address] [facility] [id number] Dept: [phone] Dept Chief Complaint: Reshma Evans is an 83 y.o. female here for an annual wellness visit. Assessment/Plan : Problem List Items Addressed This Visit Essential hypertension Relevant Orders Comprehensive metabolic panel Stable off of medications. Type 2 diabetes mellitus with hyperlipidemia (HCC) Relevant Orders Microalbumin / creatinine urine ratio Diabetes Foot Exam (Completed) Comprehensive metabolic panel Stable with lifestyle modifications. Overweight (BMI 25.0-29.9) Relevant Orders Comprehensive metabolic panel Encouraged a healthy diet low in carbohydrates and sugar. Tremor Relevant Medications propranolol (Inderal) 10 MG tablet propranolol (Inderal) 10 MG tablet Other Relevant Orders Comprehensive metabolic panel Stable with Propranolol. Will continue current treatment plan. Hyperlipidemia Relevant Orders Lipid panel Comprehensive metabolic panel Stable with Simvastatin. Will continue current treatment plan. History of meningioma Stable. Follow up with specialist as directed. Seizures (HCC) Relevant Orders Comprehensive metabolic panel LEVETIRACETAM LEVEL Stable. Will notify of blood work results. Continue Keppra as prescribed by specialist. Neuropathy Stable with Gabapentin. Will continue current treatment plan. Other Visit Diagnoses Medicare annual wellness visit, subsequent - Primary Encouraged a healthy diet low in cholesterol and saturated fats. Encouraged regular exercise. Encounter for diabetic foot exam (HCC) Relevant Orders Diabetes Foot Exam (Completed) I have reviewed and reconciled the medication list with the patient today. Current Outpatient Medications Medication Sig Dispense Refill acetaminophen (Tylenol) 500 MG tablet 1,000 mg by Enteral route 4 times a day. ascorbic acid (Vitamin C) 500 MG tablet Take 500 mg by mouth daily. Cyanocobalamin (Vitamin B-12) [address] under the tongue. fluorometholone (FML) 0.1 % ophthalmic suspension INSTILL 1 DROP INTO LEFT EYE TWICE DAILY gabapentin (Neurontin) 100 MG capsule Take 1 capsule (100 mg) by mouth 2 times daily. 180 capsule 0 levETIRAcetam (Keppra) 750 MG tablet Take 1,500 mg by mouth twice a day. Multiple Vitamin (multivitamin) capsule Take 1 capsule by mouth daily. nystatin (Mycostatin) 427316 UNIT/GM powder Apply topically three times daily. 30 g 0 omega-3 (Fish Oil) 1000 MG capsule Take 3,000 mg by mouth. pantoprazole (ProtoNix) 40 MG EC tablet Take 40 mg by mouth. simvastatin (Zocor) 40 MG tablet TAKE 1 TABLET NIGHTLY 90 tablet 1 triamcinolone (Kenalog) 0.5 % cream Apply topically 3 times daily. 30 g 0 VITAMIN D PO Take by mouth. vitamin E 180 MG (400 UNIT) capsule Take 180 mg by mouth daily. propranolol (Inderal) 10 MG tablet Take 1.5 tablets (15 mg) by mouth 2 times daily. 270 tablet 1 propranolol (Inderal) 10 MG tablet Take 1.5 tablets (15 mg) by mouth 2 times daily. 90 tablet 0 No current facility-administered medications for this visit. Also reviewed during this visit: The following health maintenance schedule was reviewed with the patient and provided in printed form in the after visit summary: Health Maintenance Topic Date Due RSV Immunization for Adults (1 - 1-dose 75+ series) Never done Medicare Advantage Annual Wellness Visit 07/10/2023 Derm Melanoma Skin Check 10/10/2023 COVID-19 Vaccine ( season) 2024 Diabetes: Urine Albumin-Creatinine Ratio for Kidney Health 04/24/2024 Depression Screening 04/15/2025 Diabetes: Estimated Glomerular Filtration Rate for Kidney Health 05/03/2025 DTaP/Tdap/Td Vaccines (2 - Td or Tdap) 12/10/2028 Hepatitis B Vaccines Completed Influenza Vaccine Completed Pneumococcal Vaccine: 65+ Years Completed Zoster Vaccines Completed Bone Density Scan Completed RSV Immunization under 20 Months Aged Out HIB Vaccines Aged Out IPV Vaccines Aged Out Hepatitis A Vaccines Aged Out Meningococcal Vaccine Aged Out Rotavirus Vaccines Aged Out HPV Vaccines Aged Out List of current healthcare providers: Patient Care Team: Rachid Neville MD as PCP - General (Family Medicine) Orders Placed This Encounter Procedures Microalbumin / creatinine urine ratio Standing Status: Future Number of Occurrences: 1 Standing Expiration Date: 06/21/2025 Lipid panel Standing Status: Future Number of Occurrences: 1 Standing Expiration Date: 06/21/2025 Comprehensive metabolic panel Standing Status: Future Number of Occurrences: 1 Standing Expiration Date: 06/21/2025 LEVETIRACETAM LEVEL Last Dose: approximately 8 PM Standing Status: Future Number of Occurrences: 1 Standing Expiration Date: 06/21/2025 Diabetes Foot Exam Review of Systems Constitutional: Negative for chills and fever. HENT: (more content not included)... [facility] 36on 05-27-2024 36 Agree, thank you [facility] 36 Name of caller: Irene Contact phone number: [phone] Relationship to Patient: patient Provider: Dr Neville Practice: [facility] Chief Complaint/Reason for Call: POC update the pt will be seen one time a week for 4 week. Best time of day caller can be reached: any Patient advised that office/PCP has 24-48 business hours to return their call: No [facility] Office Visiton 05-27-2024 Follow-up visit [id number] Reshma Evans Ronit 1940 F Date Provider Department Center 05/27/2024 [id number] DRAPER [facility] Family History Problem Relation Age of Onset No Known Problems Mother No Known Problems Father High Blood Pressure Brother High Blood Pressure Sister Family Status - Relation Status Age at Mother Father Brother Sister Level of Service:32947 ME OFFICE/OUTPATIENT ESTABLISHED LOW MDM 20 MIN Reason for Visit and Comments: Follow-up [653012] - Follow up from rehab. States that she had fell and had messed up her eye [facility] Progress Noteon 05-27-2024 Progress Note 05/27/2024 Reshma Evans (: 1940) is a 83 y.o. female , Established patient, here for evaluation of the following chief complaint(s): Follow-up (Follow up from rehab. States that she had fell and had messed up her eye ) ASSESSMENT/PLAN: 1. Intracranial meningioma (HCC) - Improving. Follow up with specialists as directed. 2. Hospital discharge follow-up - Stable. Continue home therapy as scheduled. 3. Seizures (HCC) - Stable. Continue Keppra as prescribed and follow up with specialists as directed. 4. Aneurysm of anterior communicating artery - Stable. Follow up with specialist as directed. Follow up in 25 days (on 06/21/2024) for Next scheduled follow-up. SUBJECTIVE/OBJECTIVE: AMADOU Darlingiam presents today for follow up from hospitalization. Was in [facility] for a couple of weeks- had left eye surgery. Has been receiving home health services. Per notification on 05/23/24, she will be getting home therapy once a week for one week and then two times a week for four weeks for lower extremity strength and balance. Denies any falls since getting home. Daughter expresses concerns that Reshma does not use her walker as often as she would like. Scheduled for follow up with her community support specialist again in 3 months. Will be following up with neurology at the end of this month to see if she still needs to take her Keppra for her seizures. Will also being seeing a neurosurgeon in July for follow up on an aneurysm of her anterior communicating artery that was detected. Both daughter and Reshma feel she is doing well and is making progress since her surgery. Has family checking on her at least once daily and have no concerns for safety. Review of Systems Constitutional: Negative for chills and fever. Gastrointestinal: Negative for abdominal distention, abdominal pain and blood in stool. Genitourinary: Negative for dysuria and hematuria. Skin: Negative for color change, pallor, rash and wound. Neurological: Negative for seizures. Vitals: 05/27/24 0843 BP: 122/82 Pulse: 78 SpO2: 98% Weight: 171 lb (77.6 kg) Height: 5' 7 (1.702 m) Body mass index is 26.78 kg/m?. Physical Exam Constitutional: General: She is not in acute distress. Appearance: She is not ill-appearing or diaphoretic. HENT: Head: Normocephalic and atraumatic. Eyes: Extraocular Movements: Extraocular movements intact. Cardiovascular: Rate and Rhythm: Normal rate and regular rhythm. Heart sounds: Normal heart sounds. No murmur heard. No friction rub. Pulmonary: Effort: Pulmonary effort is normal. Breath sounds: Normal breath sounds. Skin: General: Skin is warm and dry. Coloration: Skin is not pale. Findings: No erythema or rash. Neurological: Mental Status: She is alert and oriented to person, place, and time. Psychiatric: Mood and Affect: Mood normal. Behavior: Behavior normal. Thought Content: Thought content normal. Judgment: Judgment normal. An electronic signature was used to authenticate this note. Zoë Kaplan APRN - NELLY 05/27/2024 9:[address] [facility] Progress Note Patient verified by last name and . [facility] 36on 05-23-2024 36 Notified Hortensia. [facility] 36 Ok, agree, thank you [facility] 36 Name of caller: Alicia nicholas Contact phone number: [phone] Relationship to Patient: [facility] Provider: Practice: [facility] Chief Complaint/Reason for Call: Hortensia states she is going to see patient once a week for one week and then two times a week for four weeks for lower extremity strength and balance. Please advise Best time of day caller can be reached: Any Patient advised that office/PCP has 24-48 business hours to return their call: No [facility] 36on 05-22-2024 36 Notified on confidential vm. [facility] 36 Agree with frequency and those medicines are okay for her to take [facility] 36 Name of caller: Connie Contact phone number: [phone] Relationship to Patient: Home Health Nurse with [facility] Provider: Dr. Neville Practice: [facility] Chief Complaint/Reason for Call: Connie called in to let Dr. Neville know that [facility] will be seeing Patient one time a week for the next 5 weeks and when they were doing a medication review with Patient they found 3 medications that Patient is taking that were not on their discharge summary list. Connie states that these medications are Vitamin B12, Vitamin E, and Metamucil as needed. Connie states that per Patient's discharge instructions advise if Patient went 3 days without a bowel movement they were recommended to take metamucil and this is what Patient is using this for. FYI Please advise. Best time of day caller can be reached: Any Patient advised that office/PCP has 24-48 business hours to return their call: No [facility] CNOVon 05-20-2024 CNOV Office Visit (NEAGCL M) RESHMA EVANS ([id number]) 1940 F Date Time Provider Department 05/20/24 2:00 PM NEYMAR JERONIMO NEAGCLM During your visit today, we recorded the following information about you: Pulse Blood pressure Weight Height 71/minute 136/79 80.3 kg 1.676 m Neymar Jeronimo MD 05/20/2024 4:36 PM Signed NEUROSURGERY POST-OP NOTE Neymar Jeronimo MD Date of visit: May 20, 2024 Patient Name: Ms.Miriam Ronit Evans Date of : 1940 Current Age: [age] year old Sex: female MRN/E# [id number] Last Office Visit: 05/14/2024 CLINICAL SUMMARY: * 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 Nicola Cruz - [facility] [phone] SURGERY: Left pterional craniotomy for resection of sphenoid wing meningioma, Decompression of the optic canal and lateral orbit on 04/26/2024 PATHOLOGY: FINAL DIAGNOSIS A. Left sided brain tumor, biopsy: - Meningioma. B. Left intradural brain tumor, biopsy: - Meningioma, meningothelial type, WHO Grade 1. Current Steroids dose: decadron 1mg daily - on taper Current AED Dose: keppra 1500mg bid Pre-Surgical Symptoms: fuzziness in the left eye PMH including HTN, HLD, KIMBERLY, DM. Patient has a past surgical history of left frontal craniotomy for meningioma resection, exenteration of frontal sinus 09/24/[address] Lee Mckeon at [facility]. Pathology demonstrating Meningioma, meningotheliomatous-typ e (WHO Grade I). She was seen at [facility] on 02/13/2024 after a fall after stepping off the curb. She struck the left side of her face. CT brain demonstrated a small left frontal SDH. Repeat imaging was stable. She was recommended to keep her outpatient follow up appointment. She was seen on 02/19/2024 where she had been doing well since fall. She initially had MRIs ordered from Dr. Cruz with opthalmology due to the left eye exophthalmus. She noted that this had started about 2 months prior. She stated that when she looked out of the left eye that vision was a bit fuzzy. 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 Left sphenoid wing meningioma with most of its mass located away from the optic nerve. Small right anterior clinoid meningioma noted that was new from MRI in 2013. Since optic nerve was not well visualized, she was recommended to have MRI pituitary to better assess. Her CT brain showed improvement in the left lateral subdural collection, more chronic in appearance. She was seen on 04/04/2024 where she followed up with MRI imaging - vision was the same, fuzziness in the left eye. She had intermittent headaches, resolved with tylenol. Her MRI brain showed on FIESTA sequences there appears to be significant compression of the optic nerve within the optic canal secondary to bone expansion of the intraosseous component of the tumor. She underwent Left pterional craniotomy for resection of sphenoid wing meningioma, Decompression of the optic canal and lateral orbit on 04/26/2024. Patient is having their 2 week post operative visit. She has been doing well overall. She was discharged from [facility] today. Her incision is healing well and sutures were removed at the rehab facility. She denies any pain but sometimes has some pressure on the left side of her head since she sleeps on that side. She noticed her vision out of the left eye feels a little more clear with up close things but far away is still fuzzy. She has an upcoming appointment with Dr Cline 07/04/2024. She is also scheduled with Dr. Barcenas with Smoker: no Diabetic: YES Anticoagulants / Antiplatelets: no Occupation: retired Incision: Healed PAIN EVALUATION No data found in the last 1 encounters. Current Outpatient Medications Medication Sig Dispense Refill cefADROxil (DURICEF) 500 mg capsule Take 500 mg by mouth two times a day. hydrALAZINE (APRESOLINE) 20 mg/mL injection Inject 0.5 mL intravenously every 6 hours as needed (sbp goal <160). dextrose (TRUEPLUS) 15 gram/32 mL oral gel Take 32 mL by mouth as needed. glucagon 1 mg/mL injection Inject 1 mg intramuscularly as needed. insulin glargine 100 unit/mL (3 mL) Inject 13 Units subcutaneously daily at bedtime. bisa (more content not included)... Normal [facility] Urine Cultureon 05-19-2024 [facility] Escherichia coli [place] Count >100,000 Escherichia coli: REACTION Ampicillin Islt MAURISIO 8 Ampicillin+Sulbac Islt MAURISIO 4 S ceFAZolin Islt MAURISIO <=4 S Cefepime Islt MAURISIO <=0.12 S cefTRIAXone Islt MAURISIO <=0.25 S Ciprofloxacin Islt MAURISIO <=0.25 S B-Lactamase Extended Susc Islt NEG Gentamicin Islt MAURISIO <=1 S Imipenem Islt MAURISIO <=0.25 S levoFLOXacin Islt MAURISIO <=0.12 S Nitrofurantoin Islt MAURISIO <=16 S Pip+Tazo Islt MAURISIO <=4 S Tobramycin Islt MAURISIO <=1 S TMP SMX Islt MAURISIO <=20 S Normal [facility] Comment on above: Performed By: #### L 501.2300, L100.0100, L500.4050 #### [facility] [address] [place], [address] URC Escherichia coli [place] Count >100,000 Escherichia coli: REACTION Ampicillin Islt MAURISIO 8 Ampicillin+Sulbac Islt MAURISIO 4 S ceFAZolin Islt MAURISIO <=4 S Cefepime Islt MAURISIO <=0.12 S cefTRIAXone Islt MAURISIO <=0.25 S Ciprofloxacin Islt MAURISIO <=0.25 S B-Lactamase Extended Susc Islt NEG Gentamicin Islt MAURISIO <=1 S Imipenem Islt MAURISIO <=0.25 S levoFLOXacin Islt MAURISIO <=0.12 S Nitrofurantoin Islt MAURISIO <=16 S Pip+Tazo Islt MAURISIO <=4 S Tobramycin Islt MAURISIO <=1 S TMP SMX Islt MAURISIO <=20 S Normal [facility] Comment on above: Performed By: #### M 100.2200, L400.0001 #### [facility] [address] [place], [address] Basic Metabolic Profile (BMP )on 05-17-2024 BUN/CRE 28.0 RATIO High 10-20 [facility] Comment on above: Performed By: #### L 501.2300, L100.0100, L500.4050 #### [facility] [address] [place], [address] CA,Total 9.3 mg/dL Normal 8.5-10.1 [facility] Comment on above: Performed By: #### L 501.2300, L100.0100, [id number] #### [facility] [address] [place], [address] Chloride [Moles/Vol] 106 mmol/L Normal 98-107 [facility] Comment on above: Performed By: #### L 501.2300, L100.0100, [id number] #### [facility] [address] [place], [address] CO2 [Moles/Vol] 28.0 mmol/L Normal 21.0-32.0 [facility] Comment on above: Performed By: #### L 501.2300, L100.0100, L500.4050 #### [facility] [address] [place], [address] Creatinine [Mass/Vol] 1.07 mg/dL High 0.55-1.02 [facility] Comment on above: Result Comment: The validity of the calculated GFR GFRAA in patients over 70 years has not been determined. Clinical correlation is essential. Performed By: #### L 501.2300, L100.0100, L500.4050 #### [facility] [address] [place], [address] ECRCL 41.09 ml/min Normal [facility] Comment on above: Performed By: #### L 501.2300, L100.0100, L500.4050 #### [facility] [address] [place], [address] EST GFR - AA 63 mL/min Normal >60 [facility] Comment on above: Result Comment: Afri can [place] GFR Calc Performed By: #### L 501.2300, L100.0100, L500.4050 #### [facility] [address] [place], [address] GAP 4 Low 5-15 [facility] Comment on above: Performed By: #### L 501.2300, L100.0100, L500.4050 #### [facility] [address] [place], [address] GFR/1.73 sq M.predicted among non-blacks MDRD (S/P/Bld) [Vol rate/Area] 52 mL/min/{1.73_m2} Low >60 [facility] Comment on above: Result Comment: Non- GFR Calc Performed By: #### L 501.2300, L100.0100, L500.4050 #### [facility] [address] [place], [address] Glucose [Mass/Vol] 118 mg/dL High 74-106 [facility] Comment on above: Result Comment: Fast ing Glucose result from 100 to 125 mg/dL suggests IMPAIRED HOMEOSTASIS per A.D.A. criteria. Performed By: #### L 501.2300, L100.0100, L500.4050 #### [facility] [address] [place], [address] Potassium [Moles/Vol] 4.1 mmol/L Normal 3.5-5.1 [facility] Comment on above: Performed By: #### L 501.2300, L100.0100, L500.4050 #### [facility] [address] [place], [address] Sodium [Moles/Vol] 137 mmol/L Normal 136-145 [facility] Comment on above: Performed By: #### L 501.2300, L100.0100, L500.4050 #### [facility] [address] [place], [address] Urea nitrogen [Mass/Vol] 30 mg/dL High 7-18 [facility] Comment on above: Performed By: #### L 501.2300, L100.0100, L500.4050 #### [facility] [address] [place], [address] Bedside Glucoseon 05-17-2024 FINGERSTICK GLU 148 mg/dL High 74-106 [facility] Comment on above: Result Comment: RON GEMENT OF PATIENT CARE PER NURSING PROTOCOL Performed By: #### L 501.2300, L100.0100, L500.4050 #### [facility] [address] [place], [address] FINGERSTICK GLU 88 mg/dL Normal 74-106 [facility] Comment on above: Result Comment: RON GEMENT OF PATIENT CARE PER NURSING PROTOCOL Performed By: #### M 100.2200, L400.0001 #### [facility] [address] [place], [address] CBC W/Diff, Automatedon 11-0 Absolute Lymph 1.83 X10 3/uL Normal 0.83-4.51 [facility] Comment on above: Performed By: #### L 501.2300, L100.0100, L500.4050 #### [facility] [address] [place], [address] Absolute Neut 3.8 X10 3/uL Normal 2.0-7.7 [facility] Comment on above: Performed By: #### L 501.2300, L100.0100, L500.4050 #### [facility] [address] [place], [address] Basophils/100 WBC (Bld) 0.5 % Normal 0-1 [facility] Comment on above: Performed By: #### L 501.2300, L100.0100, L500.4050 #### [facility] [address] [place], [address] Eosinophils/100 WBC (Bld) 3.1 % Normal 0-5 [facility] Comment on above: Performed By: #### L 501.2300, L100.0100, L500.4050 #### [facility] [address] [place], [address] Erythrocyte distribution width (RBC) [Ratio] 15.6 % High 11.6-14.6 [facility] Comment on above: Performed By: #### L 501.2300, L100.0100, L500.4050 #### [facility] [address] [place], [address] Hematocrit (Bld) [Volume fraction] 33.8 % Low 37-47 [facility] Comment on above: Performed By: #### L 501.2300, L100.0100, L500.4050 #### [facility] [address] [place], [address] Hemoglobin (Bld) [Mass/Vol] 11.0 g/dL Low 12.0-15.0 [facility] Comment on above: Performed By: #### L 501.2300, L100.0100, L500.4050 #### [facility] [address] [place], [address] IG% 0.300 Normal 0.0-0.9 [facility] Comment on above: Result Comment: IG% - Immature Granulocytes (promyelocytes, myelocytes and metamyelocytes) > 1% indicates that a LEFT SHIFT is Present. Performed By: #### L 501.2300, L100.0100, L500.4050 #### [facility] [address] [place], [address] Lymphocytes/100 WBC (Bld) 29.6 % Normal 19-41 [facility] Comment on above: Performed By: #### L 501.2300, L100.0100, L500.4050 #### [facility] [address] [place], [address] MCH (RBC) [Entitic mass] 31.4 pg Normal 27.0-32.0 [facility] Comment on above: Performed By: #### L 501.2300, L100.0100, L500.4050 #### [facility] [address] [place], [address] MCHC (RBC) [Mass/Vol] 32.5 g/dL Normal 32-36 [facility] Comment on above: Performed By: #### L 501.2300, L100.0100, L500.4050 #### [facility] [address] [place], [address] MCV (RBC) [Entitic vol] 96.6 fL Normal 81-99 [facility] Comment on above: Performed By: #### L 501.2300, L100.0100, L500.4050 #### [facility] [address] [place], [address] Monocytes/100 WBC (Bld) 5.5 % Normal 0-10 [facility] Comment on above: Performed By: #### L 501.2300, L100.0100, L500.4050 #### [facility] [address] [place], [address] Neutrophils/100 WBC (Bld) 61.0 % Normal 47-70 [facility] Comment on above: Performed By: #### L 501.2300, L100.0100, L500.4050 #### [facility] [address] [place], [address] Nucleated RBC (Bld) [#/Vol] 0 10*3/uL Normal 0-5 [facility] Comment on above: Performed By: #### L 501.2300, L100.0100, L500.4050 #### [facility] [address] [place], [address] Platelet mean volume (Bld) [Entitic vol] 9.3 fL Normal 6.2-12.0 [facility] Comment on above: Performed By: #### L 501.2300, L100.0100, L500.4050 #### [facility] [address] [place], [address] Platelets (Bld) [#/Vol] 196 10*3/uL Normal 150-450 [facility] Comment on above: Performed By: #### L 501.2300, L100.0100, L500.4050 #### [facility] [address] [place], [address] RBC (Bld) [#/Vol] 3.50 10*6/uL Low 4.2-5.4 [facility] Comment on above: Performed By: #### L 501.2300, L100.0100, L500.4050 #### [facility] [address] [place], [address] RDW SD 54.4 fl High 35.1-43.9 [facility] Comment on above: Performed By: #### L 501.2300, L100.0100, L500.4050 #### [facility] [address] [place], [address] WBC (Bld) [#/Vol] 6.2 10*3/uL Normal 4.4-11.0 [facility] Comment on above: Performed By: #### L 501.2300, L100.0100, L500.4050 #### [facility] [address] [place], [address] CORTISOL SERUMon 05-17-2024 CORTISOL 22.10 ug/dL Normal 3.44-22.45 [facility] Comment on above: Order Comment: 60M Result Comment: Adul t (AM) 5.27 - 22.45 ug/dL Adult (PM) 3.44 - 16.76 ug/dL Performed By: #### L 501.080 #### [facility] [address] [place], [address] CORTISOL 6.30 ug/dL Normal 3.44-22.45 [facility] Comment on above: Order Comment: B Result Comment: Adul t (AM) 5.27 - 22.45 ug/dL Adult (PM) 3.44 - 16.76 ug/dL Performed By: #### L 501.2300, L100.0100, L500.4050 #### [facility] [address] [place], [address] Discharge Instructionon Discharge Instruction [facility] Medical Records Department [address] [place] [address] Instructions for Home/Discharge Instructions 05/17/24 0744 MR#: [id number] Acct: [id number] Name: RESHMA EVANS Ronit Rep #: [id number] : 1940 83 From: Zoey Feng DO PCP: KEHINDE Barclay Status:ADM IN Discharge Instructions Diet Discharge Diet: - (2000 calorie cabr consistent diet. ) Activity Discharge Activity: May Not Drive, May Shower and Use Walker Weight Bearing Status: Full weight bearing Dressing / Incision Call your doctor if your incision/area has: Increased Pain/ Swelling, Increased Redness and Foul Smelling Discharge Call your doctor if you observe: Fever of 101 or Higher, Inability to urinate, Shortness of breath, Dizziness, Fainting spells, Chest pain, Increased palpitations (irregular heartbeat), Calf discomfort, Uncontrolled pain and - (seizure) Suture Line Care: Avoid Pulling/Pushing and Avoid Pinching/Bending Cleanse incision/area with: Soap Water and - (no dressing needed) Follow Up Care When: appts have been made for you to follow up with Dr. Jeronimo and others. They are listed later in this document. Test Results: Test results from this visit will be discussed in further detail at your follow-up appointment, if applicable. 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 You had a urinary tract infection when you arrived on rehab and were treated with appropriate antibiotics. Unfortunately just prior to discharge you developed another urinary tract infection. You have been on steroids to decrease the swelling of the brain post-op. Steroids suppress your immune system. Make sure to wipe from front to back when wiping your backside after a BM. If you are wearing a pad for urine leakage change the pad at least every 3 hours and also change if it gets wet. Go to the toilet and try to urinate at least every 3 hours while awake. Take ALL of the antibiotics prescribed to you. Constipation can lead to urine retention in women and this increases the risk for a urinary tract infection. You have had a problem with constipation for a long time. You have been taking 2 stool softeners while on rehab. You should continue taking both the Senna and the MiraLAX when you get home. They are both twice a day. IF you continue to have constipation while you are on both medications your PCP may want to refer you to a ed special education teacher OR you could try using a medication called Linzess.......you can discuss this with your PCP. 2. The blood sugars were elevated when you came to rehab and you were taking insulin. It is the steroids that made the blood sugars go up. The steroids are being tapered off and the blood sugars are good now with no insulin. 3. Your blood pressures have been low on rehab and your heart rate dropped into the 40's........normal is 60-100. I had to decrease the dose of the Propranolol to 15 mg twice a day. The heart rate improved with the decrease in the dose but, your blood pressure kept dropping. Propranolol treats the tremors BUT, it also decreases heart rate and blood pressure. We had to hold some doses of the propranolol due to low blood pressure and the tremors got worse. If the blood pressure stays low or the heart rate decreases again you may need to stop the Propranolol and try a new drug to control the tremors. If this happens you should discuss this with neurology. 4. You had a seizure after the operation and you were started on an anti-epileptic drug called Keppra. You have not had any seizures while on rehab. You are going to follow up in the epilepsy clinic at [facility]. After the swelling in the brain has resolved you MAY not need Keppra anymore. Continue taking this medication twice a day until the epilepsy doctor tells you otherwise. 5. It was a pleasure meeting you Reshma. You brightened everyone's day with your smile and good attitude. If you or your family have any questions after you leave rehab please do not hesitate to call me. OFFICE: [phone] CELL: [phone] NURSES STATION ON REHAB: [phone] If you have not had a BM in 3 days take a laxative on the 4th day. I think you are getting urinary tract infections (UTI) due to constipation. It is a frequent cause of UTI in women. You are now taking 2 stool softeners, MiraLAX and Senna. You need to continue taking both of these medications. Also, make sure to drink enough water daily to keep the urine a pale yellow. Discharge Orders/Prescriptions Prescriptions: New sennosides-docusate sodium [Stimulant Laxative Plus] 8.6-50 mg Tabl (more content not included)... Normal [facility] Urinalysis, Completeon 05-17 BACTERIA 3+ /hpf Normal None Seen [facility] Comment on above: Order Comment: DESTIN TER SPECIMEN Performed By: #### M 100.2200, L400.0001 #### [facility] [address] [place], [address] EPI,RENAL 0-5 SEEN Normal 0-5 [facility] Comment on above: Order Comment: DESTIN TER SPECIMEN Performed By: #### M 100.2200, L400.0001 #### [facility] [address] [place], [address] RBC 0-5 SEEN Normal 0-5 [facility] Comment on above: Order Comment: DESTIN TER SPECIMEN Performed By: #### M 100.2200, L400.0001 #### [facility] [address] [place], [address] WBC >100 SEEN Normal 0-5 [facility] Comment on above: Order Comment: DESTIN TER SPECIMEN Performed By: #### M 100.2200, L400.0001 #### [facility] [address] [place], [address] EPI,SQUAMOUS 0-5 SEEN Normal 5-10 [facility] Comment on above: Order Comment: DESTIN TER SPECIMEN Performed By: #### M 100.2200, L400.0001 #### [facility] [address] [place], [address] Mucus Ql (Urine sed) 0 SEEN Normal [facility] Comment on above: Order Comment: DESTIN TER SPECIMEN Performed By: #### M 100.2200, L400.0001 #### [facility] [address] [place], [address] 36on 05-16-20[address] [facility] 36 Okay, verbal orders for home health, PT OT, fci and speech therapy eval [facility] 36 Name of caller: Alicia nicholas Contact phone number: [phone] Relationship to Patient: [facility] Health Care Provider: Brandon Practice: [facility] Chief Complaint/Reason for Call: Requesting orders to follow with care for patient. PT, OT, MCFP and speech therapy. Please advise. Best time of day caller can be reached: any Patient advised that office/PCP has 24-48 business hours to return their call: No Normal [facility] Bedside Glucoseon 05-16-2024 FINGERSTICK GLU 164 mg/dL High 74-106 [facility] Comment on above: Result Comment: RON GEMENT OF PATIENT CARE PER NURSING PROTOCOL Performed By: #### L 501.080 #### [facility] [address] [facility] [address] FINGERSTICK GLU 120 mg/dL High [facility]106 [facility] Comment on above: Result Comment: RON GEMENT OF PATIENT CARE PER NURSING PROTOCOL Performed By: #### L 501.2300, L100.0100, L500.4050 #### [facility] [address] [facility] [address] FINGERSTICK GLU 115 mg/dL High [address] [place] [address] Comment on above: Result Comment: RON GEMENT OF PATIENT CARE PER NURSING PROTOCOL Performed By: #### L 501.2300, L100.0100, L500.4050 #### [facility] [address] [facility] [address] Bedside Glucoseon 05-15-2024 FINGERSTICK GLU 159 mg/dL High -106 [facility] Comment on above: Result Comment: RON GEMENT OF PATIENT CARE PER NURSING PROTOCOL Performed By: #### M 100.2200, L400.0001 #### [facility] [address] [facility] [address] FINGERSTICK GLU 160 mg/dL High [address] [place] [address] Comment on above: Result Comment: RON GEMENT OF PATIENT CARE PER NURSING PROTOCOL Performed By: #### L 501.080 #### [facility] [address] [facility] [address] FINGERSTICK GLU 131 mg/dL High [address] [place] [address] Comment on above: Result Comment: RON GEMENT OF PATIENT CARE PER NURSING PROTOCOL Performed By: #### M 100.2200, L400.0001 #### [facility] [address] [place], [address] FINGERSTICK GLU 106 mg/dL Normal 74-106 [facility] Comment on above: Result Comment: RON GEMENT OF PATIENT CARE PER NURSING PROTOCOL Performed By: #### M 100.2200, L400.0001 #### [facility] [address] [place], [address] FINGERSTICK GLU 118 mg/dL High 74-106 [facility] Comment on above: Result Comment: RON GEMENT OF PATIENT CARE PER NURSING PROTOCOL Performed By: #### L 501.080 #### [facility] [address] [place], [address] Basic Metabolic Profile (BMP )on 05-14-2024 BUN/CRE 38.2 RATIO High 10-20 [facility] Comment on above: Performed By: #### M 100.2200, L400.0001 #### [facility] [address] [place], [address] CA,Total 9.7 mg/dL Normal 8.5-10.1 [facility] Comment on above: Performed By: #### M 100.2200, L400.0001 #### [facility] [address] [place], [address] Chloride [Moles/Vol] 103 mmol/L Normal 98-107 [facility] Comment on above: Performed By: #### M 100.2200, L400.0001 #### [facility] [address] [place], [address] CO2 [Moles/Vol] 29.0 mmol/L Normal 21.0-32.0 [facility] Comment on above: Performed By: #### M 100.2200, L400.0001 #### [facility] [address] [place], [address] Creatinine [Mass/Vol] 0.99 mg/dL Normal 0.55-1.02 [facility] Comment on above: Result Comment: The validity of the calculated GFR GFRAA in patients over 70 years has not been determined. Clinical correlation is essential. Performed By: #### M 100.2200, L400.0001 #### [facility] [address] [place], [address] ECRCL 44.65 ml/min Normal [facility] Comment on above: Performed By: #### M 100.2200, L400.0001 #### [facility] [address] [place], [address] EST GFR - AA 68 mL/min Normal >60 [facility] Comment on above: Result Comment: Afri can [place] GFR Calc Performed By: #### M 100.2200, L400.0001 #### [facility] [address] [place], [address] GAP 5 Normal 5-15 [facility] Comment on above: Performed By: #### M 100.2200, L400.0001 #### [facility] [address] [place], [address] GFR/1.73 sq M.predicted among non-blacks MDRD (S/P/Bld) [Vol rate/Area] 56 mL/min/{1.73_m2} Low >60 [facility] Comment on above: Result Comment: Non- GFR Calc Performed By: #### M 100.2200, L400.0001 #### [facility] [address] [place], [address] Glucose [Mass/Vol] 100 mg/dL Normal 74-106 [facility] Comment on above: Result Comment: Fast ing Glucose result from 100 to 125 mg/dL suggests IMPAIRED HOMEOSTASIS per A.D.A. criteria. Performed By: #### M 100.2200, L400.0001 #### [facility] [address] [place], [address] Potassium [Moles/Vol] 4.5 mmol/L Normal 3.5-5.1 [facility] Comment on above: Performed By: #### M 100.2200, L400.0001 #### [facility] [address] [place], [address] Sodium [Moles/Vol] 137 mmol/L Normal 136-145 [facility] Comment on above: Performed By: #### M 100.2200, L400.0001 #### [facility] [address] [place], [address] Urea nitrogen [Mass/Vol] 38 mg/dL High 7-18 [facility] Comment on above: Performed By: #### M 100.2200, L400.0001 #### [facility] [address] [place], [address] Bedside Glucoseon 05-14-2024 FINGERSTICK GLU 126 mg/dL High 74-106 [facility] Comment on above: Result Comment: RON GEMENT OF PATIENT CARE PER NURSING PROTOCOL Performed By: #### M 100.2200, L400.0001 #### [facility] [address] [place], [address] FINGERSTICK GLU 116 mg/dL High 74-106 [facility] Comment on above: Result Comment: RON GEMENT OF PATIENT CARE PER NURSING PROTOCOL Performed By: #### L 501.080 #### [facility] [address] [place], [address] FINGERSTICK GLU 103 mg/dL Normal 74-106 [facility] Comment on above: Result Comment: RON GEMENT OF PATIENT CARE PER NURSING PROTOCOL Performed By: #### M 100.2200, L400.0001 #### [facility] [address] [place], [address] CBC-Complete Blood Cnt No Di ffon 05-14-2024 Erythrocyte distribution width (RBC) [Ratio] 15.4 % High 11.6-14.6 [facility] Comment on above: Performed By: #### M 100.2200, L400.0001 #### [facility] [address] [place], [address] Hematocrit (Bld) [Volume fraction] 36.9 % Low 37-47 [facility] Comment on above: Performed By: #### M 100.2200, L400.0001 #### [facility] [address] [place], [address] Hemoglobin (Bld) [Mass/Vol] 11.5 g/dL Low 12.0-15.0 [facility] Comment on above: Performed By: #### M 100.2200, L400.0001 #### [facility] [address] [place], [address] MCH (RBC) [Entitic mass] 30.2 pg Normal 27.0-32.0 [facility] Comment on above: Performed By: #### M 100.2200, L400.0001 #### [facility] [address] [place], [address] MCHC (RBC) [Mass/Vol] 31.2 g/dL Low 32-36 [facility] Comment on above: Performed By: #### M 100.2200, L400.0001 #### [facility] [address] [place], [address] MCV (RBC) [Entitic vol] 96.9 fL Normal 81-99 [facility] Comment on above: Performed By: #### M 100.2200, L400.0001 #### [facility] [address] [place], [address] Platelet mean volume (Bld) [Entitic vol] 9.0 fL Normal 6.2-12.0 [facility] Comment on above: Performed By: #### M 100.2200, L400.0001 #### [facility] [address] [place], [address] Platelets (Bld) [#/Vol] 282 10*3/uL Normal 150-450 [facility] Comment on above: Performed By: #### M 100.2200, L400.0001 #### [facility] [address] [place], [address] RBC (Bld) [#/Vol] 3.81 10*6/uL Low 4.2-5.4 [facility] Comment on above: Performed By: #### M 100.2200, L400.0001 #### [facility] [address] [place], [address] RDW SD 53.7 fl High 35.1-43.9 [facility] Comment on above: Performed By: #### M 100.2200, L400.0001 #### [facility] [address] [place], [address] WBC (Bld) [#/Vol] 8.6 10*3/uL Normal 4.4-11.0 [facility] Comment on above: Performed By: #### M 100.2200, L400.0001 #### [facility] [address] [place], [address] [facility] Telephone (NEAGCLM) RESHMA EVANS ([id number]) 1940 F Date Time Provider Department 05/14/24 NEYMAR JERONIMO During your visit today, we recorded the following information about you: Karli Cox RN 05/14/2024 10:53 AM Signed Spoke with ZOHREH Funes at [facility]. Let her know Reshma's sutures can come out if everything looks okay. I told them if they have any issues they can call me and I provided my phone number and extension. Confirmed with her that patient is on a Decadron taper. She stated that she is on a taper now. Karli Cox RN Allergies As of Date: 05/14/2024 (No Known Allergies) Date Reviewed: 04/30/2024 Reviewed by: Carolee Maher, RT(R) - Fully Assessed Prescriptions as of 05/14/2024 - hydrALAZINE (APRESOLINE) 20 mg/mL injection Inject 0.5 mL intravenously every 6 hours as needed (sbp goal <160). - dextrose (TRUEPLUS) 15 gram/32 mL oral gel Take 32 mL by mouth as needed. - glucagon 1 mg/mL injection Inject 1 mg intramuscularly as needed. - insulin glargine 100 unit/mL (3 mL) Inject 13 Units subcutaneously daily at bedtime. - bisacodyl (DULCOLAX) 10 mg supp 1 Suppository by RECTAL route once daily as needed. - magnesium hydroxide (MOM) 400 mg/5 mL suspension 30 mL by ORAL/FEEDING TUBE route once daily as needed. - ondansetron (ZOFRAN) 4 mg tablet Take 1 tablet by mouth every 6 hours as needed. - pantoprazole DR (PROTONIX) 40 mg tablet Take 1 tablet by mouth daily at 6 am. - senna-docusate (SENNA-S) 8.6-50 mg per tablet Take 1 tablet by mouth two times a day. - acetaminophen (TYLENOL) 500 mg tablet 2 tablets by ORAL/FEEDING TUBE route every 6 hours. - dexAMETHasone (DECADRON) 1 mg tablet Take 4 tablets by mouth two times a day with meals for 3 days, THEN 2 tablets two times a day with meals for 5 days, THEN 2 tablets daily with breakfast for 5 days, THEN 1 tablet daily with breakfast for 5 days. - levETIRAcetam (KEPPRA) 750 mg tablet Take 2 tablets by mouth two times a day. - bacitracin zinc-polymyxin B (POLYSPORIN) 500-10,000 unit/gram ointment Apply to affected area three times a day. - heparin 5,000 unit/mL injection Inject 1 mL subcutaneously every 8 hours. - nystatin (MYCOSTATIN) powder - fluorometholone (FML LIQUID FILM) 0.1 % ophthalmic suspension Use 1 Drop in the left eye two times a day. - multivitamin/iron/folic acid (CENTRUM ORAL) Take by mouth. - hydroCHLOROthiazide 12.5 mg tablet Take 12.5 mg by mouth once daily. - gabapentin (NEURONTIN) 100 mg capsule Take 100 mg by mouth two times a day. - lisinopril (ZESTRIL) 10 mg tablet Take 10 mg by mouth once daily. - propranolol (INDERAL) 20 mg tablet Take 20 mg by mouth two times a day. - Cunningham-3 Fatty Acids-Vitamin E (FISH OIL) 1,000 mg cap Take 1 capsule by mouth. - simvastatin (ZOCOR) 40 mg tablet Take by mouth. - Cholecalciferol, Vitamin D3, (VITAMIN D) 1,000 unit ORAL Cap Take one(1) tablet daily. - ascorbic acid (VITAMIN C) 500 mg ORAL tablet Take one(1) tablet daily. - CALCIUM/MAG OXIDE/VITAMIN D3 (CORAL CALCIUM PLUS ORAL) pt not sure of dosage takes 1 daily Problem List As Of Date 05/14/2024 Noted Resolved Benign neoplasm of cerebral meninges [D32.0] 10/05/2010 SDH (subdural hematoma) (HCC) [S06.5XAA] 02/13/2024 Trauma [T14.90XA] 02/14/2024 Fall [W19.XXXA] 02/14/2024 Periorbital hematoma of left eye [H05.232] 02/14/2024 HTN (hypertension) [I10] 02/14/2024 Hyperlipidemia [E78.5] 02/14/2024 TBI (traumatic brain injury) (HCC) [S06.9XAA] 02/14/2024 Benign meningioma (HCC) [D32.9] 04/16/2024 Pre-op examination [Z01.818] 04/16/2024 Type 2 diabetes mellitus without complication, *10/07/2016 KIMBERLY (obstructive sleep apnea) [G47.33] 04/18/2024 Meningioma (HCC) [D32.9] 04/26/2024 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, [address] FINGERSTICK GLU 136 mg/dL High 74-106 [facility] Comment on above: Result Comment: RON GEMENT OF PATIENT CARE PER NURSING PROTOCOL Performed By: #### L 501.080 #### [facility] [address] [place], [address] FINGERSTICK GLU 119 mg/dL High 74-106 [facility] Comment on above: Result Comment: RON GEMENT OF PATIENT CARE PER NURSING PROTOCOL Performed By: #### M 100.2200, L400.0001 #### [facility] [address] [place], [address] FINGERSTICK GLU 100 mg/dL Normal -106 [facility] Comment on above: Result Comment: RON GEMENT OF PATIENT CARE PER NURSING PROTOCOL Performed By: #### M 100.2200, L400.0001 #### [facility] [address] [place], [address] Bedside Glucoseon 05-12-2024 FINGERSTICK GLU 117 mg/dL High 74-106 [facility] Comment on above: Result Comment: RON GEMENT OF PATIENT CARE PER NURSING PROTOCOL Performed By: #### M 100.2200, L400.0001 #### [facility] [address] [place], [address] FINGERSTICK GLU 145 mg/dL High 74-106 [facility] Comment on above: Result Comment: RON GEMENT OF PATIENT CARE PER NURSING PROTOCOL Performed By: #### L 501.2300, L100.0100, L500.4050 #### [facility] [address] [place], [address] FINGERSTICK GLU 140 mg/dL High 74-106 [facility] Comment on above: Result Comment: RON GEMENT OF PATIENT CARE PER NURSING PROTOCOL Performed By: #### L 501.080 #### [facility] [address] [place], [address] FINGERSTICK GLU 125 mg/dL High 74-106 [facility] Comment on above: Result Comment: RON GEMENT OF PATIENT CARE PER NURSING PROTOCOL Performed By: #### L 501.2300, L100.0100, L500.4050 #### [facility] [address] [place], [address] Bedside Glucoseon 05-11-2024 FINGERSTICK GLU 145 mg/dL High 74-106 [facility] Comment on above: Result Comment: RON GEMENT OF PATIENT CARE PER NURSING PROTOCOL Performed By: #### L 501.080 #### [facility] [address] [place], [address] FINGERSTICK GLU 136 mg/dL High 74-106 [facility] Comment on above: Result Comment: RON GEMENT OF PATIENT CARE PER NURSING PROTOCOL Performed By: #### L 501.080 #### [facility] [address] [place], [address] FINGERSTICK GLU 107 mg/dL High 74-106 [facility] Comment on above: Result Comment: RON GEMENT OF PATIENT CARE PER NURSING PROTOCOL Performed By: #### L 501.2300, L100.0100, L500.4050 #### [facility] [address] [place], [address] FINGERSTICK GLU 94 mg/dL Normal 74-106 [facility] Comment on above: Result Comment: RON GEMENT OF PATIENT CARE PER NURSING PROTOCOL Performed By: #### L 501.080 #### [facility] [address] [place], [address] Bedside Glucoseon 05-10-2024 FINGERSTICK GLU 182 mg/dL High 74-106 [facility] Comment on above: Result Comment: RON GEMENT OF PATIENT CARE PER NURSING PROTOCOL Performed By: #### L 501.2300, L100.0100, L500.4050 #### [facility] [address] [place], [address] FINGERSTICK GLU 184 mg/dL High 74-106 [facility] Comment on above: Result Comment: RON GEMENT OF PATIENT CARE PER NURSING PROTOCOL Performed By: #### L 501.080 #### [facility] [address] [place], [address] FINGERSTICK GLU 113 mg/dL High 74-106 [facility] Comment on above: Result Comment: RON GEMENT OF PATIENT CARE PER NURSING PROTOCOL Performed By: #### L 501.2300, L100.0100, L500.4050 #### [facility] [address] [place], [address] FINGERSTICK GLU 103 mg/dL Normal 74-106 [facility] Comment on above: Result Comment: RON GEMENT OF PATIENT CARE PER NURSING PROTOCOL Performed By: #### L 501.080 #### [facility] [address] [place], [address] HH, Hemoglobin AND Hematocri ton 05-10-2024 Hematocrit (Bld) [Volume fraction] 31.9 % Low 37-47 [facility] Comment on above: Performed By: #### L 501.080 #### [facility] [address] [place], [address] Hemoglobin (Bld) [Mass/Vol] 10.3 g/dL Low 12.0-15.0 [facility] Comment on above: Performed By: #### L 501.080 #### [facility] [address] [place], [address] Thyroid Stim Hormone (TSH)on 05-10-2024 TSH 1.960 uIU/mL Normal 0.358-3.740 [facility] Comment on above: Performed By: #### M 100.2200, L400.0001 #### [facility] [address] [place], [address] Bedside Glucoseon 05-09-2024 FINGERSTICK GLU 138 mg/dL High 74-106 [facility] Comment on above: Result Comment: RON GEMENT OF PATIENT CARE PER NURSING PROTOCOL Performed By: #### L 501.080 #### [facility] [address] [place], [address] FINGERSTICK GLU 154 mg/dL High 74-106 [facility] Comment on above: Result Comment: RON GEMENT OF PATIENT CARE PER NURSING PROTOCOL Performed By: #### L 501.2300, L100.0100, L500.4050 #### [facility] [address] [place], [address] FINGERSTICK GLU 116 mg/dL High 74-106 [facility] Comment on above: Result Comment: RON GEMENT OF PATIENT CARE PER NURSING PROTOCOL Performed By: #### L 501.2300, L100.0100, L500.4050 #### [facility] [address] [place], [address] FINGERSTICK GLU 111 mg/dL High 74-106 [facility] Comment on above: Result Comment: RON GEMENT OF PATIENT CARE PER NURSING PROTOCOL Performed By: #### L 501.2300, L100.0100, L500.4050 #### [facility] [address] [place], [address] Bedside Glucoseon 05-08-2024 FINGERSTICK GLU 156 mg/dL High 74-106 [facility] Comment on above: Result Comment: RON GEMENT OF PATIENT CARE PER NURSING PROTOCOL Performed By: #### L 501.080 #### [facility] [address] [place], [address] FINGERSTICK GLU 175 mg/dL High 74-106 [facility] Comment on above: Result Comment: RON GEMENT OF PATIENT CARE PER NURSING PROTOCOL Performed By: #### M 100.2200, L400.0001 #### [facility] [address] [place], [address] FINGERSTICK GLU 106 mg/dL Normal 74-106 [facility] Comment on above: Result Comment: RON GEMENT OF PATIENT CARE PER NURSING PROTOCOL Performed By: #### L 501.080 #### [facility] [address] [place], [address] FINGERSTICK GLU 92 mg/dL Normal 74-106 [facility] Comment on above: Result Comment: RON GEMENT OF PATIENT CARE PER NURSING PROTOCOL Performed By: #### L 501.080 #### [facility] [address] [place], [address] Bedside Glucoseon 05-07-2024 FINGERSTICK GLU 143 mg/dL High 74-106 [facility] Comment on above: Result Comment: RON GEMENT OF PATIENT CARE PER NURSING PROTOCOL Performed By: #### L 501.2300, L100.0100, L500.4050 #### [facility] [address] [place], [address] FINGERSTICK GLU 138 mg/dL High 74-106 [facility] Comment on above: Result Comment: RON GEMENT OF PATIENT CARE PER NURSING PROTOCOL Performed By: #### L 501.2300, L100.0100, L500.4050 #### [facility] [address] [place], [address] FINGERSTICK GLU 116 mg/dL High 74-106 [facility] Comment on above: Result Comment: RON GEMENT OF PATIENT CARE PER NURSING PROTOCOL Performed By: #### M 100.2200, L400.0001 #### [facility] [address] [place], [place], [address] FINGERSTICK GLU 130 mg/dL High 74-106 [facility] Comment on above: Result Comment: RON GAO OF PATIENT CARE PER NURSING PROTOCOL Performed By: #### L 501.080 #### [facility] [address] [place], [address] CNPNon 05-07-2024 CNPN Telephone (NEAGCLM) RESHMA EVANS ([id number]) 1940 F Date Time Provider Department 05/07/24 NEYMAR JERONIMO NEAGCLM During your visit today, we recorded the following information about you: Karli Cox RN 05/07/2024 3:05 PM Signed Spoke with patient's daughter Trina, she was asking about her rehab facility checking her sugars and giving her insulin. I told her they may just be monitoring due to the fact that she is on Decadron which makes sugars go up. I told her to check with the nurse for doctor at the rehab facility and ask about the insulin. I told her long-term hopefully she will not need to be on this but this is something that will need to be managed by her PCP. She is currently at [facility]. 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 - dextrose (TRUEPLUS) 15 gram/32 mL oral gel Take 32 mL by mouth as needed. - glucagon 1 mg/mL injection Inject 1 mg intramuscularly as needed. - insulin glargine 100 unit/mL (3 mL) Inject 13 Units subcutaneously daily at bedtime. - bisacodyl (DULCOLAX) 10 mg supp 1 Suppository by RECTAL route once daily as needed. - magnesium hydroxide (MOM) 400 mg/5 mL suspension 30 mL by ORAL/FEEDING TUBE route once daily as needed. - ondansetron (ZOFRAN) 4 mg tablet Take 1 tablet by mouth every 6 hours as needed. - pantoprazole DR (PROTONIX) 40 mg tablet Take 1 tablet by mouth daily at 6 am. - senna-docusate (SENNA-S) 8.6-50 mg per tablet Take 1 tablet by mouth two times a day. - acetaminophen (TYLENOL) 500 mg tablet 2 tablets by ORAL/FEEDING TUBE route every 6 hours. - dexAMETHasone (DECADRON) 1 mg tablet Take 4 tablets by mouth two times a day with meals for 3 days, THEN 2 tablets two times a day with meals for 5 days, THEN 2 tablets daily with breakfast for 5 days, THEN 1 tablet daily with breakfast for 5 days. - levETIRAcetam (KEPPRA) 750 mg tablet Take 2 tablets by mouth two times a day. - bacitracin zinc-polymyxin B (POLYSPORIN) 500-10,000 unit/gram ointment Apply to affected area three times a day. - heparin 5,000 unit/mL injection Inject 1 mL subcutaneously every 8 hours. - nystatin (MYCOSTATIN) powder - fluorometholone (FML LIQUID FILM) 0.1 % ophthalmic suspension Use 1 Drop in the left eye two times a day. - multivitamin/iron/folic acid (CENTRUM ORAL) Take by mouth. - hydroCHLOROthiazide 12.5 mg tablet Take 12.5 mg by mouth once daily. - gabapentin (NEURONTIN) 100 mg capsule Take 100 mg by mouth two times a day. - lisinopril (ZESTRIL) 10 mg tablet Take 10 mg by mouth once daily. - propranolol (INDERAL) 20 mg tablet Take 20 mg by mouth two times a day. - Cunningham-3 Fatty Acids-Vitamin E (FISH OIL) 1,000 mg cap Take 1 capsule by mouth. - simvastatin (ZOCOR) 40 mg tablet Take by mouth. - Cholecalciferol, Vitamin D3, (VITAMIN D) 1,000 unit ORAL Cap Take one(1) tablet daily. - ascorbic acid (VITAMIN C) 500 mg ORAL tablet Take one(1) tablet daily. 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 SDH (subdural hematoma) (HCC) [S06.5XAA] 02/13/2024 Trauma [T14.90XA] 02/14/2024 Fall [W19.XXXA] 02/14/2024 Periorbital hematoma of left eye [H05.232] 02/14/2024 HTN (hypertension) [I10] 02/14/2024 Hyperlipidemia [E78.5] 02/14/2024 TBI (traumatic brain injury) (HCC) [S06.9XAA] 02/14/2024 Benign meningioma (HCC) [D32.9] 04/16/2024 Pre-op examination [Z01.818] 04/16/2024 Type 2 diabetes mellitus without complication, *10/07/2016 KIMBERLY (obstructive sleep apnea) [G47.33] 04/18/2024 Meningioma (HCC) [D32.9] 04/26/2024 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, [address] FINGERSTICK GLU 151 mg/dL High 74-106 [facility] Comment on above: Result Comment: RON GEMENT OF PATIENT CARE PER NURSING PROTOCOL Performed By: #### L 501.080 #### [facility] [address] [place], [address] FINGERSTICK GLU 112 mg/dL High 74-106 [facility] Comment on above: Result Comment: RON GEMENT OF PATIENT CARE PER NURSING PROTOCOL Performed By: #### M 100.2200, L400.0001 #### [facility] [address] [place], [address] FINGERSTICK GLU 126 mg/dL High 74-106 [facility] Comment on above: Result Comment: RON GEMENT OF PATIENT CARE PER NURSING PROTOCOL Performed By: #### L 501.080 #### [facility] [address] [place], [address] Bedside Glucoseon 05-05-2024 FINGERSTICK GLU 167 mg/dL High -106 [facility] Comment on above: Result Comment: RON GEMENT OF PATIENT CARE PER NURSING PROTOCOL Performed By: #### L 501.080 #### [facility] [address] [place], [address] FINGERSTICK GLU 159 mg/dL High 74-106 [facility] Comment on above: Result Comment: RON GEMENT OF PATIENT CARE PER NURSING PROTOCOL Performed By: #### L 501.080 #### [facility] [address] [place], [address] FINGERSTICK GLU 188 mg/dL High 74-106 [facility] Comment on above: Result Comment: RON GEMENT OF PATIENT CARE PER NURSING PROTOCOL Performed By: #### M 100.2200, L400.0001 #### [facility] [address] [place], [address] FINGERSTICK GLU 123 mg/dL High 74-106 [facility] Comment on above: Result Comment: RON GEMENT OF PATIENT CARE PER NURSING PROTOCOL Performed By: #### L 501.080 #### [facility] [address] [place], [address] Urine Cultureon 05-05-2024 [facility] Escherichia coli [place] Count >100,000 Escherichia coli: REACTION Ampicillin Islt MAURISIO 8 Ampicillin+Sulbac Islt MAURISIO 4 S ceFAZolin Islt MAURISIO <=4 S Cefepime Islt MAURISIO <=0.12 S cefTRIAXone Islt MAURISIO <=0.25 S Ciprofloxacin Islt MAURISIO <=0.25 S B-Lactamase Extended Susc Islt NEG Gentamicin Islt MAURISIO <=1 S Imipenem Islt MAURISIO <=0.25 S levoFLOXacin Islt MAURISIO <=0.12 S Nitrofurantoin Islt MAURISIO <=16 S Pip+Tazo Islt MAURISIO <=4 S Tobramycin Islt MAURISIO <=1 S TMP SMX Islt MAURISIO <=20 S Normal [facility] Comment on above: Performed By: #### M 100.2200, L400.0001 #### [facility] [address] [place], [address] Bedside Glucoseon 05-04-2024 FINGERSTICK GLU 190 mg/dL High 74-106 [facility] Comment on above: Result Comment: RON GEMENT OF PATIENT CARE PER NURSING PROTOCOL Performed By: #### L 501.080 #### [facility] [address] [facility] [address] FINGERSTICK GLU 102 mg/dL Normal 74-106 [facility] Comment on above: Result Comment: RON GEMENT OF PATIENT CARE PER NURSING PROTOCOL Performed By: #### L 501.2300, L100.0100, L500.4050 #### [facility] [address] [place], [address] FINGERSTICK GLU 130 mg/dL High 74-106 [facility] Comment on above: Result Comment: RON GEMENT OF PATIENT CARE PER NURSING PROTOCOL Performed By: #### L 501.080 #### [facility] [address] [place], [address] FINGERSTICK GLU 103 mg/dL Normal 74-106 [facility] Comment on above: Result Comment: RON GAO OF PATIENT CARE PER NURSING PROTOCOL Performed By: #### L 501.080 #### [facility] [address] [place], [address] CBC W/Diff, Automatedon 10-2 Absolute Lymph 1.57 X10 3/uL Normal 0.83-4.51 [facility] Comment on above: Performed By: #### L 501.2300, L100.0100, L500.4050 #### [facility] [address] [place], [address] Absolute Neut 9.0 X10 3/uL High 2.0-7.7 [facility] Comment on above: Performed By: #### L 501.2300, L100.0100, L500.4050 #### [facility] [address] [place], [address] Basophils/100 WBC (Bld) 0.1 % Normal 0-1 [facility] Comment on above: Performed By: #### L 501.2300, L100.0100, L500.4050 #### [facility] [address] [place], [address] Eosinophils/100 WBC (Bld) 1.6 % Normal 0-5 [facility] Comment on above: Performed By: #### L 501.2300, L100.0100, L500.4050 #### [facility] [address] [place], [address] Erythrocyte distribution width (RBC) [Ratio] 13.7 % Normal 11.6-14.6 [facility] Comment on above: Performed By: #### L 501.2300, L100.0100, L500.4050 #### [facility] [address] [place], [address] Hematocrit (Bld) [Volume fraction] 32.3 % Low 37-47 [facility] Comment on above: Performed By: #### L 501.2300, L100.0100, L500.4050 #### [facility] [address] [place], [address] Hemoglobin (Bld) [Mass/Vol] 10.8 g/dL Low 12.0-15.0 [facility] Comment on above: Performed By: #### L 501.2300, L100.0100, L500.4050 #### [facility] [address] [place], [address] IG% 0.700 Normal 0.0-0.9 [facility] Comment on above: Result Comment: IG% - Immature Granulocytes (promyelocytes, myelocytes and metamyelocytes) > 1% indicates that a LEFT SHIFT is Present. Performed By: #### L 501.2300, L100.0100, L500.4050 #### [facility] [address] [place], [address] Lymphocytes/100 WBC (Bld) 13.6 % Low 19-41 [facility] Comment on above: Performed By: #### L 501.2300, L100.0100, L500.4050 #### [facility] [address] [place], [address] MCH (RBC) [Entitic mass] 30.2 pg Normal 27.0-32.0 [facility] Comment on above: Performed By: #### L 501.2300, L100.0100, L500.4050 #### [facility] [address] [place], [address] MCHC (RBC) [Mass/Vol] 33.4 g/dL Normal 32-36 [facility] Comment on above: Performed By: #### L 501.2300, L100.0100, L500.4050 #### [facility] [address] [place], [address] MCV (RBC) [Entitic vol] 90.2 fL Normal 81-99 [facility] Comment on above: Performed By: #### L 501.2300, L100.0100, L500.4050 #### [facility] [address] [place], [address] Monocytes/100 WBC (Bld) 6.2 % Normal 0-10 [facility] Comment on above: Performed By: #### L 501.2300, L100.0100, L500.4050 #### [facility] [address] [place], [address] Neutrophils/100 WBC (Bld) 77.8 % High 47-70 [facility] Comment on above: Performed By: #### L 501.2300, L100.0100, L500.4050 #### [facility] [address] [place], [address] Nucleated RBC (Bld) [#/Vol] 0 10*3/uL Normal 0-5 [facility] Comment on above: Performed By: #### L 501.2300, L100.0100, L500.4050 #### [facility] [address] [place], [address] Platelet mean volume (Bld) [Entitic vol] 9.6 fL Normal 6.2-12.0 [facility] Comment on above: Performed By: #### L 501.2300, L100.0100, L500.4050 #### [facility] [address] [place], [address] Platelets (Bld) [#/Vol] 276 10*3/uL Normal 150-450 [facility] Comment on above: Performed By: #### L 501.2300, L100.0100, L500.4050 #### [facility] [address] [place], [address] RBC (Bld) [#/Vol] 3.58 10*6/uL Low 4.2-5.4 [facility] Comment on above: Performed By: #### L 501.2300, L100.0100, L500.4050 #### [facility] [address] [place], [address] RDW SD 44.6 fl High 35.1-43.9 [facility] Comment on above: Performed By: #### L 501.2300, L100.0100, L500.4050 #### [facility] [address] [place], [address] WBC (Bld) [#/Vol] 11.5 10*3/uL High 4.4-11.0 [facility] Comment on above: Performed By: #### L 501.2300, L100.0100, L500.4050 #### [facility] [address] [place], [address] Comprehensive Metabolic Prof [facility] 05-04-2024 Albumin [Mass/Vol] 2.4 g/dL Low 3.2-5.0 [facility] Comment on above: Performed By: #### L 501.2300, L100.0100, L500.4050 #### [facility] [address] [place], [address] Albumin/Globulin [Mass ratio] 0.8 {ratio} Low 0.9-2.4 [facility] Comment on above: Performed By: #### L 501.2300, L100.0100, L500.4050 #### [facility] [address] [place], [address] ALK P 42 U/L Low 45-117 [facility] Comment on above: Performed By: #### L 501.2300, L100.0100, L500.4050 #### [facility] [address] [place], [address] ALT [Catalytic activity/Vol] 14 U/L Normal 13-56 [facility] Comment on above: Performed By: #### L 501.2300, L100.0100, L500.4050 #### [facility] [address] [place], [address] AST [Catalytic activity/Vol] 8 U/L Low 15-37 [facility] Comment on above: Performed By: #### L 501.2300, L100.0100, L500.4050 #### [facility] [address] [place], [address] Bilirubin [Mass/Vol] 0.40 mg/dL Normal 0.20-1.00 [facility] Comment on above: Result Comment: For patients on eltrombopag therapy, use of Dimension [place] TBIL is not recommended. Performed By: #### L 501.2300, L100.0100, L500.4050 #### [facility] [address] [place], [address] BUN/CRE 36.0 RATIO High 10-20 [facility] Comment on above: Performed By: #### L 501.2300, L100.0100, L500.4050 #### [facility] [address] [place], [address] CA,Total 8.8 mg/dL Normal 8.5-10.1 [facility] Comment on above: Performed By: #### L 501.2300, L100.0100, L500.4050 #### [facility] [address] [place], [address] Chloride [Moles/Vol] 105 mmol/L Normal 98-107 [facility] Comment on above: Performed By: #### L 501.2300, L100.0100, L500.4050 #### [facility] [address] [place], [address] CO2 [Moles/Vol] 26.0 mmol/L Normal 21.0-32.0 [facility] Comment on above: Performed By: #### L 501.2300, L100.0100, L500.4050 #### [facility] [address] [place], [address] Creatinine [Mass/Vol] 0.92 mg/dL Normal 0.55-1.02 [facility] Comment on above: Result Comment: The validity of the calculated GFR GFRAA in patients over 70 years has not been determined. Clinical correlation is essential. Performed By: #### L 501.2300, L100.0100, L500.4050 #### [facility] [address] [place], [address] ECRCL 47.99 ml/min Normal [facility] Comment on above: Performed By: #### L 501.2300, L100.0100, L500.4050 #### [facility] [address] [place], [address] EST GFR - AA 75 mL/min Normal >60 [facility] Comment on above: Result Comment: Afri can [place] GFR Calc Performed By: #### L 501.2300, L100.0100, L500.4050 #### [facility] [address] [place], [address] GAP 4 Low 5-15 [facility] Comment on above: Performed By: #### L 501.2300, L100.0100, L500.4050 #### [facility] [address] [place], [address] GFR/1.73 sq M.predicted among non-blacks MDRD (S/P/Bld) [Vol rate/Area] 62 mL/min/{1.73_m2} Normal >60 [facility] Comment on above: Result Comment: Non- GFR Calc Performed By: #### L 501.2300, L100.0100, L500.4050 #### [facility] [address] [place], [address] Globulin (S) [Mass/Vol] 3.1 g/dL Normal 2.2-4.2 [facility] Comment on above: Performed By: #### L 501.2300, L100.0100, L500.4050 #### [facility] [address] [place], [address] Glucose [Mass/Vol] 105 mg/dL Normal 74-106 [facility] Comment on above: Result Comment: Fast ing Glucose result from 100 to 125 mg/dL suggests IMPAIRED HOMEOSTASIS per A.D.A. criteria. Performed By: #### L 501.2300, L100.0100, L500.4050 #### [facility] [address] [place], [address] Potassium [Moles/Vol] 4.1 mmol/L Normal 3.5-5.1 [facility] Comment on above: Performed By: #### L 501.2300, L100.0100, L500.4050 #### [facility] [address] [place], [address] Sodium [Moles/Vol] 135 mmol/L Low 136-145 [facility] Comment on above: Performed By: #### L 501.2300, L100.0100, L500.4050 #### [facility] [address] [place], [address] T PROT 5.5 g/dL Low 6.4-8.2 [facility] Comment on above: Performed By: #### L 501.2300, L100.0100, L500.4050 #### [facility] [address] [place], [address] Urea nitrogen [Mass/Vol] 33 mg/dL High 7-18 [facility] Comment on above: Performed By: #### L 501.2300, L100.0100, L500.4050 #### [facility] [address] [place], [address] Magnesiumon 05-04-2024 Magnesium [Mass/Vol] 2.2 mg/dL Normal 1.6-2.6 [facility] Comment on above: Order Comment: Comme nts: Use the a.m. blood. Performed By: #### L 501.080 #### [facility] [address] [place], [address] Phosphoruson 05-04-2024 Phosphate [Mass/Vol] 3.1 mg/dL Normal 2.5-4.9 [facility] Comment on above: Performed By: #### L 501.2300, L100.0100, L500.4050 #### [facility] [address] [place], [address] Basic metabolic 2000 panelon 05-03-2024 Anion gap [Moles/Vol] 8 mmol/L Normal 8-15 [facility] Comment on above: Order Comment: Speci men Type: BLOOD SPECIMENOrdering Facility: [facility] Address: [address] [place] [address] Performed By: #### 2 4321-2 ####[facility]ORY[facility] [id number] [place] [address] [place] Calcium [Mass/Vol] 9.5 mg/dL Normal 8.5-10.2 [facility] Comment on above: Order Comment: Speci men Type: BLOOD SPECIMENOrdering Facility: [facility] Address: [address] [place] [address] Performed By: #### 2 4321-2 ####[facility]ORY[facility] [id number] [place] [address] [place] Chloride [Moles/Vol] 98 mmol/L Normal 98-107 [facility] Comment on above: Order Comment: Speci men Type: BLOOD SPECIMENOrdering Facility: [facility] Address: [address] [place] [address] Performed By: #### 2 4321-2 ####[facility]ORATORYCLIA [id number] [place] [address] [place] CO2 [Moles/Vol] 27 mmol/L Normal 22-30 [facility] Comment on above: Order Comment: Speci men Type: BLOOD SPECIMENOrdering Facility: [facility] Address: [address] [place] [address] Performed By: #### 2 4321-2 ####[facility]ITALCLIA [id number] [address] STATES OF [facility] Creatinine [Mass/Vol] 0.85 mg/dL Normal 0.58-0.96 [facility] Comment on above: Order Comment: Speci men Type: BLOOD SPECIMENOrdering Facility: [facility] Address: [address] [place] [address] Performed By: #### 2 4321-2 ####[facility]ORATORYCLIA [id number] [address] Creatinine and Glomerular filtration rate.predicted panel (S/P/Bld) 67 mL/min/1.73m??? Normal >=60 [facility] Comment on above: Order Comment: Speci men Type: BLOOD SPECIMENOrdering Facility: [facility] Address: [address] [place] [address] Result Comment: Annalise mated Glomerular Filtration Rate (eGFR) is calculated using the 2020 CKD-EPI creatinine equation. This equation utilizes serum creatinine, sex, and age as parameters. The creatinine assay has traceable calibration to isotope dilution-mass spectrometry. Refer to KDIGO guidelines for clinical interpretation. In patients with unstable renal function, e.g. those with acute kidney injury, the eGFR may not accurately reflect actual GFR. Performed By: #### 2 4321-2 ####[facility]ORATORYCLIA [id number] [address] STATES OF [facility] Glucose [Mass/Vol] 91 mg/dL Normal 74-99 [facility] Comment on above: Order Comment: Speci men Type: BLOOD SPECIMENOrdering Facility: [facility] Address: [address] [place] [address] Result Comment: The [place] Diabetes Association (ADA) provides guidance for cutoff values for fasting glucose and random glucose. The ADA defines fasting as no caloric intake for at least 8 hours. Fasting plasma glucose results between 100 to 125 mg/dL indicate increased risk for diabetes (prediabetes). Fasting plasma glucose results greater than or equal to 126 mg/dL meet the criteria for diagnosis of diabetes. In the absence of unequivocal hyperglycemia, results should be confirmed by repeat testing. In a patient with classic symptoms of hyperglycemia or hyperglycemic crisis, random plasma glucose results greater than or equal to 200 mg/dL meet the criteria for diagnosis of diabetes. Reference: Standards of Medical Care in Diabetes 2016, [place] Diabetes Association. Diabetes Care. 2016.39(Suppl 1). Performed By: #### 2 4321-2 ####[facility]ORATORYCLIA [id number] [place] [address] [place] Potassium [Moles/Vol] 3.9 mmol/L Normal 3.7-5.1 [facility] Comment on above: Order Comment: [place]an[place] men Type: BLOOD SPECIMENOrdering Facility: [facility] Address: [address] [place] [address] Performed By: #### 2 4321-2 ####[facility]ORATORYCLIA [id number] [place] [address] [place] Sodium [Moles/Vol] 133 mmol/L Low 136-144 [facility] Comment on above: Order Comment: Speci men Type: BLOOD SPECIMENOrdering Facility: [facility] Address: [address] [address] Performed By: #### 2 4321-2 ####[facility]ORATORYCLIA [id number] [place] [address] [place] Urea nitrogen [Mass/Vol] 23 mg/dL High 7-21 [facility] Comment on above: Order Comment: Speci men Type: BLOOD SPECIMENOrdering Facility: [facility] Address: [address] [place] [address] Performed By: #### 2 4321-2 ####[facility]ORATORYCLIA [id number] [place] [address] [place] Bedside Glucoseon 05-03-2024 FINGERSTICK GLU 168 mg/dL High 74-106 [facility] Comment on above: Result Comment: RON GEMENT OF PATIENT CARE PER NURSING PROTOCOL Performed By: #### L 501.080 #### [facility] [address] [place], [address] FINGERSTICK GLU 83 mg/dL Normal 74-106 [facility] Comment on above: Result Comment: RON GEMENT OF PATIENT CARE PER NURSING PROTOCOL Performed By: #### L 501.080 #### [facility] [address] [place], [address] CBC panel Auto (Bld)on 05-03 Erythrocyte distribution width (RBC) [Ratio] 13.2 % Normal 11.5-15.0 [facility] Comment on above: Order Comment: Speci men Type: BLOOD SPECIMENOrdering Facility: [facility] Address: [address] [place] [address] Performed By: #### 5 8410-2 ####[facility]ORATORYCLIA [id number] [address] [place] Hematocrit (Bld) [Volume fraction] 37.8 % Normal 36.0-46.0 [facility] Comment on above: Order Comment: Speci men Type: BLOOD SPECIMENOrdering Facility: [facility] Address: [address] [place] [address] Performed By: #### 5 8410-2 ####[facility]ORATORYCLIA [id number] [place] [address] [place] Hemoglobin (Bld) [Mass/Vol] 13.1 g/dL Normal 11.5-15.5 [facility] Comment on above: Order Comment: Speci men Type: BLOOD SPECIMENOrdering Facility: [facility] Address: [address] [place] [address] Performed By: #### 5 8410-2 ####[facility]ORATORYCLIA [id number] [address] MCH (RBC) [Entitic mass] 31.1 pg Normal 26.0-34.0 [facility] Comment on above: Order Comment: Speci men Type: BLOOD SPECIMENOrdering Facility: [facility] Address: [address] [place] [address] Performed By: #### 5 8410-2 ####[facility]ORATORYCLIA [id number] [address] [place] MCHC (RBC) [Mass/Vol] 34.7 g/dL Normal 30.5-36.0 [facility] Comment on above: Order Comment: Speci men Type: BLOOD SPECIMENOrdering Facility: [facility] Address: [address] [place] [address] Performed By: #### 5 8410-2 ####[facility] LABORATORYCLIA [id number] [address] MCV (RBC) [Entitic vol] 89.8 fL Normal 80.0-100.0 [facility] Comment on above: Order Comment: Speci men Type: BLOOD SPECIMENOrdering Facility: [facility] Address: [address] [place] [address] Performed By: #### 5 8410-2 ####[facility]ORATORYCLIA [id number] [address] Nucleated RBC (Bld) [#/Vol] 10*3/uL Normal <0.01 [facility] Comment on above: Order Comment: Speci men Type: BLOOD SPECIMENOrdering Facility: [facility] Address: [address] [place] [address] Performed By: #### 5 8410-2 ####[facility]ORATORYCLIA [id number] [address] [place] Platelet mean volume (Bld) [Entitic vol] 9.8 fL Normal 9.0-12.7 [facility] Comment on above: Order Comment: Speci men Type: BLOOD SPECIMENOrdering Facility: [facility] Address: [address] [place] [address] Performed By: #### 5 8410-2 ####[facility]ORATORYCLIA [id number] [address] OF [facility] Platelets (Bld) [#/Vol] 287 10*3/uL Normal 150-400 [facility] Comment on above: Order Comment: Speci men Type: BLOOD SPECIMENOrdering Facility: [facility] Address: [address] [place] [address] Performed By: #### 5 8410-2 ####[facility]ORATORYCLIA [id number] [address] RBC (Bld) [#/Vol] 4.21 10*6/uL Normal 3.90-5.20 [facility] Comment on above: Order Comment: Speci men Type: BLOOD SPECIMENOrdering Facility: [facility] Address: [address] [place] [address] Performed By: #### 5 8410-2 ####[facility]ORATORYCLIA [id number] [address] WBC (Bld) [#/Vol] 8.70 10*3/uL Normal 3.70-11.00 [facility] Comment on above: Order Comment: Speci men Type: BLOOD SPECIMENOrdering Facility: [facility] Address: [address] [place] [address] Performed By: #### 5 8410-2 ####[facility] LABORATORYCLIA [id number] [address] NURSING PROGon 05-03-2024 NURSING PROG HNO ID: [id number] Author: LIGIA URENA RN Service: Nursing Author Type: Registered Nurse Type: Nursing Progress Note Filed: 05/03/2024 11:35 Note Text: This RN called report to [facility]. Pt and VS remained stable throughout shift. Two IV's and heart monitor were removed from Pt. Family to transport Pt to rehab. Normal [facility] NUTRITIONon 05-03-2024 NUTRITION HNO ID: [id number] Author: IZABEL GEE RD Service: Nutrition Therapy Author Type: Registered Dietitian Type: Nutrition Filed: 05/03/2024 11:15 Note Text: NUTRITION THERAPY SCREEN NOTE SERVICE DATE: 05/03/2024 SERVICE TIME: 1050 Care Plan: Continue current diet Supplements: Ensure Max Discharge Recommendations: Diet;Oral Supplements Diet: Carbohydrate Controlled, soft and bite size Oral Supplements: Ensure Max, or alternative, 1-2x/day Monitor and Evaluation: Meet greater than 75% of estimated needs Intake History: Nutrition Intake Prior to Admission: Greater than 75% estimated energy needs greater than or equal to 1 month Current Nutrition Intake: Less than 75% estimated energy needs Current Intake Over time: Greater than or equal to 5 days Average Daily Calorie Intake (kcal): 890 kcal Average Daily Protein Intake (gm): 47 gm Average intake over: 3 days Pt seen for LOS 7 days. Planning for discharge today. Pt c/o decreased appetite this admission. Only eating side items and ~25% entree at meals. Diet Orders (From admission, onward) Start Ordered 04/29/24 1800 DIET CARBOHYDRATE CONTROLLED START NOW Question Answer Comment Carbohydrate Control CONSISTENT CARBOHYDRATE Food Consistency SOFT AND BITE-SIZED (L6) Liquid Consistency THIN LIQUID (L0) 04/29/24 3760 Anthropometrics: Height: 167.6 cm (5' 5.98) Weight: 80.6 kg (177 lb 11.1 oz) Usual Weight: 79.8 kg (176 lb) 02/13/24 Weight Change: Stable weight(s) MNT Billing: $ Initial Assessment: 1-15 minutes SIGNATURE: Izabel Gee RD PATIENT NAME: Reshma Evans DATE: May 03, 2024 TIME: 11:13 AM Normal [facility] Urinalysis, Completeon 05-03 RBC 0-5 SEEN Normal 0-5 [facility] Comment on above: Order Comment: DESTIN TER SPECIMEN Performed By: #### M 100.2200, L400.0001 #### [facility] [address] [place], [address] WBC 25-50 SEEN Normal 0-5 [facility] Comment on above: Order Comment: DESTIN TER SPECIMEN Performed By: #### M 100.2200, L400.0001 #### [facility] [address] [place], [address] BACTERIA 2+ /hpf Normal None Seen [facility] Comment on above: Order Comment: DESTIN TER SPECIMEN Performed By: #### M 100.2200, L400.0001 #### [facility] [address] [place], [address] EPI,SQUAMOUS 0 SEEN Normal 5-10 [facility] Comment on above: Order Comment: DESTIN TER SPECIMEN Performed By: #### M 100.2200, L400.0001 #### [facility] [address] [place], [address] Mucus Ql (Urine sed) 0 SEEN Normal [facility] Comment on above: Order Comment: DESTIN TER SPECIMEN Performed By: #### M 100.2200, L400.0001 #### [facility] [address] [place], [address] CNDSon 05-02-2024 CNDS HNO ID: [id number] Author: NEYMAR JERONIMO MD Service: Neurosurgery Author Type: [employer] Type: Discharge Summary Filed: 05/09/2024 09:12 Note Text: Attestation signed by Neymar Jeronimo MD at 05/09/2024 9:12 AM Neymar Jeronimo MD DISCHARGE SUMMARY PATIENT NAME: Reshma Evans Code Status: Full Code Highest Readmission Risk Score: 30 The 30 day readmissions risk score is derived from an internally validated risk model which evaluates patient level characteristics, utilization history, medication orders and lab results up until the day of discharge. Patients with a score of 40 or above are considered highest risk for readmission. Specific patient level drivers will be listed at the bottom of the summary. Additional Provider to Provider Information: 04/26: Left craniotomy for resection with Dr. Jeronimo 04/27: s/p meningioma resections yesterday with Dr. Jeronimo. Post op CTH with pneumocephalus started on Q2h high flow oxygen. Had some confusion last night but was improving. Upon evaluation this morning was noted to be perseverating and seemed to have word finding difficulty. Also noted to have a tremor exacerbated by stimulation. Stat CTH and CTA h/n ordered. Will check 20 min EEG given fluctuating exam findings 04/28: Seizures captured on EEG overnight. Keppra increased. Will call for BEM check later today 04/29: BEM overnight with no seizures. No acute events overnight. NSGY plan to transfer to floor today. Will monitor EEG through tomorrow am and will d/c if remains negative. 04/30: NAEON 05/01: NAEON 05/02: NAEON. Denies any significant headaches. Denies nausea, emesis, numbness, tingling. Is in good spirits. 05/03: NAEON. Denies headaches, would like to be discharged today, discharged to acute rehab in stable condition Admitting diagnosis: meningioma Discharge dx: meningioma Admit date 04/26 discharge date 05/03 Treatment Team: Attending Provider: Neymar Jeronimo MD Consulting: MICHELLE JENSEN Transitions of Care Critical Issues: IMAGING FOLLOW-UP: Follow up MRI brain scan WWO IVCON in 3 months SPECIALIST FOLLOW-UP: Follow up in 3 months for incidental aneurysm with Dr. Barcenas, Follow up in 4-[address] Cline (Epilepsy), follow up 2 weeks from date of surgery for suture removal with Dr. Jeronimo PICKENS MEDICATION CHANGES: Keppra added, Dexamethasone taper LABS AND PROCEDURES PENDING AT DISCHARGE: Biopsy Results (brain) FOLLOW-UP APPOINTMENTS ALREADY SCHEDULED WITH A [facility] PROVIDER: Future Appointments Date Time Provider Department Center 05/20/2024 2:00 PM Neymar Jeronimo MD [facility] Fontanez [facility] ALLERGIES No Known Allergies DISCHARGE MEDICATION: Medication List START taking these medications acetaminophen 500 mg tablet Commonly known as: TYLENOL 2 tablets by ORAL/FEEDING TUBE route every 6 hours. bacitracin zinc-polymyxin B 500-10,000 unit/gram ointment Commonly known as: POLYSPORIN Apply to affected area three times a day. bisacodyl 10 mg Supp Commonly known as: DULCOLAX 1 Suppository by RECTAL route once daily as needed. dexAMETHasone 1 mg tablet Commonly known as: DECADRON Take 4 tablets by mouth two times a day with meals for 3 days, THEN 2 tablets two times a day with meals for 5 days, THEN 2 tablets daily with breakfast for 5 days, THEN 1 tablet daily with breakfast for 5 days. Start taking on: May 03, 2024 dextrose 15 gram/32 mL oral gel Commonly known as: TRUEPLUS Take 32 mL by mouth as needed. glucagon 1 mg/mL injection Inject 1 mg intramuscularly as needed. heparin 5,000 unit/mL injection Inject 1 mL subcutaneously every 8 hours. hydrALAZINE 20 mg/mL injection Commonly known as: APRESOLINE Inject 0.5 mL intravenously every 6 hours as needed (sbp goal <160). insulin glargine 100 unit/mL (3 mL) Inject 13 Units subcutaneously daily at bedtime. levETIRAcetam 750 mg tablet Commonly known as: KEPPRA Take 2 tablets by mouth two times a day. magnesium hydroxide 400 mg/5 mL suspension Commonly known as: MOM 30 mL by ORAL/FEEDING TUBE route once daily as needed. ondansetron 4 mg tablet Commonly known as: ZOFRAN Take 1 tablet by mouth every 6 hours as needed. oxyCODONE IR 5 mg immediate release tablet Commonly known as: ROXICODONE 1-2 tablets by ORAL/FEEDING TUBE route every 4 hours as needed for up to [address] 40 mg tablet Commonly known as: PROTONIX Take 1 tablet by mouth daily at 6 am. Start taking on: May 04, 2024 senna-docusate 8.6-50 mg per tablet Commonly known as: SENNA-S Take 1 tablet by mouth two times a day. CONTINUE taking these medications CENTRUM ORAL CORAL CALCIUM PLUS ORAL Fish OiL 1,000 mg Cap Generic drug: Cunningham-3 Fatty Acids-Vi (more content not included)... [facility] CONSULT PROGon 05-02-2024 CONSULT PROG HNO ID: [id number] Author: ADITYA PRATER MD Service: Hospital Medicine Author Type: Physician Type: Consult Progress Note Filed: 05/02/2024 14:25 Note Text: DEPARTMENT OF HOSPITAL MEDICINE PROGRESS NOTE SERVICE DATE: 05/02/2024 NIGHT AND WEEKEND COVERAGE: After 7pm please page [phone] SUBJECTIVE: Follow-up post meningioma resection Patient is up to the chair, no acute events, she denies any complaints denies CP/SOB. Denies nausea/vomiting/diarrhe a. OBJECTIVE: PHYSICAL EXAM: BP 158/70 Pulse 55 Temp (Src) 97.7 (Oral) Resp 16 Ht 5' 5.984 (1.68m) Wt 177 lb 11.1 oz (80.6kg) SpO2 97% BMI 28.69 kg/(m2). O2 Therapy: Room Air General: NAD, appears comfortable Resp: Clear to auscultation B/L, no wheeze/rhonchi, unlabored CV: RRR, Normal S1S2, No murmur/rub/gallop GI: soft, NT/ND, + BS Ext: no cyanosis/clubbing/edema MEDICATIONS: Current Facility-Administered Medications Medication Dose Route Frequency bacitracin zinc 500 units - polymyxin 10,000 units topical ointment (POLYSPORIN) TOPICAL TID dexAMETHasone 4 mg tab(s) (DECADRON) 4 mg ORAL BID w MEALS Followed by [START ON 05/06/2024] dexAMETHasone 2 mg tab(s) (DECADRON) 2 mg ORAL BID w MEALS Followed by [START ON 05/11/2024] dexAMETHasone 2 mg tab(s) (DECADRON) 2 mg ORAL DAILY WITH BREAKFAST Followed by [START ON 05/16/2024] dexAMETHasone 1 mg tab(s) (DECADRON) 1 mg ORAL DAILY WITH BREAKFAST heparin 5,000 Units injection 5,000 Units SUBCUTANEOUS q 8 H insulin glargine 13 Units pen (long acting) 13 Units SUBCUTANEOUS AT BEDTIME insulin lispro injection (rapid acting) (ADMElog) SUBCUTANEOUS w MEALS levETIRAcetam 1,500 mg injection (KEPPRA) 1,500 mg INTRAVENOUS BID dextrose 15 gram/32 mL 15 g (TRUEPLUS) 15 g ORAL PRN Or glucagon 1 mg injection 1 mg INTRAMUSCULAR PRN Or dextrose 10% iv bolus 12.5 g INTRAVENOUS PRN gabapentin 100 mg cap(s) (NEURONTIN) 100 mg ORAL BID fluorometholone 0.1 % 1 Drop ophthalmic drop (FML LIQUID FILM) 1 Drop LEFT EYE BID acetaminophen 1,000 mg tab(s) (TYLENOL) 1,000 mg ORAL/FEEDING TUBE q 6 H oxyCODONE IR 5-10 mg tab(s) (ROXICODONE) 5-10 mg ORAL/FEEDING TUBE q [address] 40 mg tab(s) (PROTONIX) 40 mg ORAL DAILY (6 AM) ondansetron 4 mg tab(s) (ZOFRAN) 4 mg ORAL q 6 H PRN Or ondansetron (PF) 4 mg injection (ZOFRAN) 4 mg INTRAVENOUS q 6 H PRN magnesium hydroxide 400 mg/5 mL 30 mL (MOM) 30 mL ORAL/FEEDING TUBE DAILY PRN bisacodyl 10 mg suppository (DULCOLAX) 10 mg RECTAL DAILY PRN senna-docusate 8.6-50 mg 1 tablet (SENNA-S) 1 tablet ORAL BID hydrALAZINE 10 mg injection (APRESOLINE) 10 mg INTRAVENOUS q 6 H PRN simvastatin 40 mg tab(s) (ZOCOR) 40 mg ORAL DAILY lisinopril 10 mg tab(s) (ZESTRIL) 10 mg ORAL DAILY DATA: Diagnostic tests reviewed for today's visit: CBC, Coags, BMP, Mg, Phos CSF AND Dilantin Liver Function, Amylase, AND Lipase Cardiac Enzymes ABGs Problem List Meningioma (HCC) (POA: Yes) HTN (hypertension) (POA: Yes) Hyperlipidemia (POA: Yes) Type 2 diabetes mellitus without complication, without long-term current use of insulin (HCC) (POA: Yes) KIMBERLY (obstructive sleep apnea) (POA: Yes) Aneurysm of anterior communicating artery (POA: Yes) Aphasia (POA: Clinically Undetermined) Seizure (HCC) (POA: Status not on file) HOSPITAL COURSE: #Left sphenoid wing meningioma -Management per primary team -On decadron q6h -PT/OT #Post-operative seizure -Seizure precautions. Continue Keppra 1500 mg BID per epilepsy recs #Incidental brain aneurysm -Neuro-interventional consulted. #HTN-continue lisinopril 10mg PO every day #HLD -Continue simvastatin 40 mg daily #DMII with hyperglycemia, BG at goal 140-180 -suspect steroid induced hyperglycemia -Hgb A1c 5.8. -accucheck trends , on lantus from 13 units nightly. Lispro SSIC. Carb control diet, hypoglycemia protocol. BG controlled Anemia - Hgb stable , will monitor GERD -PPI daily KIMBERLY -not currently on CPAP Will continue to follow VTE Prophylaxis: As per primary team Disposition: To be determined Plan of care discussed with: Provider, RN, Patient SIGNATURE: Aditya Prater MD PATIENT NAME: Reshma Evans PAGER/CONTACT #: [phone] [facility] CONSULT PROGon 05-01-2024 CONSULT PROG HNO ID: [id number] Author: ADITYA PRATER MD Service: Hospital Medicine Author Type: Physician Type: Consult Progress Note Filed: 05/01/2024 17:18 Note Text: DEPARTMENT OF HOSPITAL MEDICINE PROGRESS NOTE SERVICE DATE: 05/01/2024 SERVICE TIME: 5:16 PM NIGHT AND WEEKEND COVERAGE: After 7pm please page [phone] SUBJECTIVE: Follow-up post meningioma resection Patient is up to the chair, no acute acute events, she denies any complaints denies CP/SOB. Denies nausea/vomiting/diarrhe a. OBJECTIVE: PHYSICAL EXAM: BP 123/61 Pulse 63 Temp (Src) 98.1 (Oral) Resp 19 Ht 5' 5.984 (1.68m) Wt 177 lb 11.1 oz (80.6kg) SpO2 99% BMI 28.69 kg/(m2). O2 Therapy: Room Air General: NAD, appears comfortable Resp: Clear to auscultation B/L, no wheeze/rhonchi, unlabored CV: RRR, Normal S1S2, No murmur/rub/gallop GI: soft, NT/ND, + BS Ext: no cyanosis/clubbing/edema MEDICATIONS: Current Facility-Administered Medications Medication Dose Route Frequency bacitracin zinc 500 units - polymyxin 10,000 units topical ointment (POLYSPORIN) TOPICAL TID dexAMETHasone 4 mg tab(s) (DECADRON) 4 mg ORAL BID w MEALS Followed by [START ON 05/06/2024] dexAMETHasone 2 mg tab(s) (DECADRON) 2 mg ORAL BID w MEALS Followed by [START ON 05/11/2024] dexAMETHasone 2 mg tab(s) (DECADRON) 2 mg ORAL DAILY WITH BREAKFAST Followed by [START ON 05/16/2024] dexAMETHasone 1 mg tab(s) (DECADRON) 1 mg ORAL DAILY WITH BREAKFAST heparin 5,000 Units injection 5,000 Units SUBCUTANEOUS q 8 H insulin glargine 13 Units pen (long acting) 13 Units SUBCUTANEOUS AT BEDTIME insulin lispro injection (rapid acting) (ADMElog) SUBCUTANEOUS w MEALS levETIRAcetam 1,500 mg injection (KEPPRA) 1,500 mg INTRAVENOUS BID dextrose 15 gram/32 mL 15 g (TRUEPLUS) 15 g ORAL PRN Or glucagon 1 mg injection 1 mg INTRAMUSCULAR PRN Or dextrose 10% iv bolus 12.5 g INTRAVENOUS PRN gabapentin 100 mg cap(s) (NEURONTIN) 100 mg ORAL BID fluorometholone 0.1 % 1 Drop ophthalmic drop (FML LIQUID FILM) 1 Drop LEFT EYE BID acetaminophen 1,000 mg tab(s) (TYLENOL) 1,000 mg ORAL/FEEDING TUBE q 6 H oxyCODONE IR 5-10 mg tab(s) (ROXICODONE) 5-10 mg ORAL/FEEDING TUBE q [address] 40 mg tab(s) (PROTONIX) 40 mg ORAL DAILY (6 AM) ondansetron 4 mg tab(s) (ZOFRAN) 4 mg ORAL q 6 H PRN Or ondansetron (PF) 4 mg injection (ZOFRAN) 4 mg INTRAVENOUS q 6 H PRN magnesium hydroxide 400 mg/5 mL 30 mL (MOM) 30 mL ORAL/FEEDING TUBE DAILY PRN bisacodyl 10 mg suppository (DULCOLAX) 10 mg RECTAL DAILY PRN senna-docusate 8.6-50 mg 1 tablet (SENNA-S) 1 tablet ORAL BID hydrALAZINE 10 mg injection (APRESOLINE) 10 mg INTRAVENOUS q 6 H PRN simvastatin 40 mg tab(s) (ZOCOR) 40 mg ORAL DAILY lisinopril 10 mg tab(s) (ZESTRIL) 10 mg ORAL DAILY DATA: Diagnostic tests reviewed for today's visit: CBC, Coags, BMP, Mg, Phos Recent Labs 04/29/24 0434 WBC 10.84 HB 9.4* HCT 29.1* PLT 157 CSF AND Dilantin Liver Function, Amylase, AND Lipase Cardiac Enzymes ABGs Problem List Meningioma (HCC) (POA: Yes) HTN (hypertension) (POA: Yes) Hyperlipidemia (POA: Yes) Type 2 diabetes mellitus without complication, without long-term current use of insulin (HCC) (POA: Yes) KIMBERLY (obstructive sleep apnea) (POA: Yes) Aneurysm of anterior communicating artery (POA: Yes) Aphasia (POA: Clinically Undetermined) Seizure (HCC) (POA: Status not on file) HOSPITAL COURSE: #Left sphenoid wing meningioma -Management per primary team -On decadron q6h -PT/OT #Post-operative seizure -Seizure precautions. Continue Keppra 1500 mg BID per epilepsy recs -on cEEG #Incidental brain aneurysm -Neuro-interventional consulted. #HTN-continue lisinopril 10mg PO every day #HLD -Continue simvastatin 40 mg daily #DMII with hyperglycemia -suspect steroid induced hyperglycemia -Hgb A1c 5.8. -accucheck trends , on lantus from 13 units nightly. Lispro SSIC. Carb control diet, hypoglycemia protocol. BG controlled Anemia - Hgb stable , will monitor GERD -PPI daily KIMBERLY -not currently on CPAP Will continue to follow VTE Prophylaxis: As per primary team Disposition: To be determined Plan of care discussed with: Provider, RN, Patient SIGNATURE: Aditya Prater MD PATIENT NAME: Reshma Evans DATE: May 01, 2024 TIME: 5:16 PM PAGER/CONTACT #: [phone] [facility] THERAPY NTon 05-01-2024 THERAPY NT HNO ID: [id number] Author: ROHAN WHITE CCC-BRIDGE MANAGER Service: Speech/Swallow Author Type: Speech Language Pathologist Type: Therapy (PT/OT/Speech/Resp) Filed: 05/01/2024 16:32 Note Text: Speech Therapy Treatment SERVICE DATE: 05/01/2024 SERVICE TIME: 1605 to 1619 ROOM: [place] [address] IMPRESSION: Swallow Deficits Identified / Suspected: Oropharyngeal dysphagia Diet Recommendations: Soft and Bite-Sized IDDSI Level 6 Thin Liquids IDDSI Level 0 Swallowing Precautions Recommendations: 1:1 Supervision Feed / Eat at a slow rate Sit upright 90 degrees for all PO Small Bite/Sip Rigid Oral Hygiene Nursing Recommendations: Reinforce use of swallowing strategies Recommended Discharge Disposition: Acute Rehab Justification for Recommended Discharge Disposition: Patient requires an intensive inpatient rehabilitation therapy program due to:, dysphagia requiring frequent assessment and diet modification, requires active, intensive and ongoing intervention of multiple therapy disciplines Current Hospital Course: Admitted following planned craniotomy for resection of meningioma 04/26. 04/27 CT Brain: post op changes post left middle cranial fossa/frontal pole mass resection with scattered areas of worsening blood products/hemorrhage within resection tract, associated mass effect or midline shift Rehabilitation Precautions: Aspiration Precautions, Cognitive Linguistics Deficits, Dysphagia, Communication Deficits Reason for Speech Therapy Consult: post crani meningioma resection, failed RN swallow screen Relevant Past Medical History: BPPV, SDH Response to Therapy Interventions: Aphasia, Cognitive Deficits, Good Participation in activities Subjective: The patient is sitting up in chair and drowsy, able to participate. Current Status Oral Hygiene: Clear, dry oral cavity Dentition: Retains Natural Dentition Current Feeding Method: Oral Current Diet Textures: Soft and Bite-Sized IDDSI Level 6, Thin Liquids IDDSI Level 0 Current Level Of Communication: Verbal Current Management Of Secretions: Able to self-manage Oral Motor Exam: Within Functional Limits Swallow Position Of Patient During Assessment: Upright In Chair Consistencies Presented: Thin Liquids IDDSI Level 0, Solid, Soft and Bite-Sized IDDSI Level 6 Compensatory Strategies Utilized During Assessment: Sit upright 90 degrees for all PO, Small Bite/Sip, Alternate bites and sips, Feed / Eat at a slow rate Patient up in chair, drowsy but able to participate; minimal verbalization No excess oral or pharyngeal secretions Lingual protrusion is strong and coordinated 7/10 attempts Lingual elevation is strong and coordinated 5/10 attempts Effortful swallow for exercise timely 4/5 attempts Requires assist with feeding/tray set up Good lip seal on cup, straw and spoon Slow chewing with mild oral residual with solid; greater success when moistening agent (applesauce) added to the dry solid No signs/symptoms of aspiration with thin liquid Recommend continue the soft and bite sized diet with thin liquids Did not complete cognitive evaluation due to patient drowsiness Patient /Caregiver Goals: Eat/Drink Without Restrictions Goals for Plan of Care: Goals: SWALLOWING: Patient / Caregiver will demonstrate knowledge of taught compensatory strategies and dietary consistency recommendations to optimize functional swallow function without overt clinical signs and symptoms of aspiration or dysphagia Swallow Goals: Patient will tolerate Soft and Bite-Sized IDDSI Level 6 diet consistency while utilizing compensatory/swallowing strategies given minimal cues in 90% of trials so that the patient will minimize the signs/symptoms of dysphagia. - see above 05/01/2024 Patient will tolerate Thin Liquids IDDSI Level 0 consistency while utilizing compensatory/swallowing strategies given minimal cues in 90% of trials so that the patient will minimize the signs/symptoms of dysphagia. - see above 05/01/2024 Patient, Caregiver, Family will demonstrate adequate return of knowledge of all compensatory strategies/instruction to effectively assist the patient in immediate safety with oral intake and swallowing. Patient will participate with swallow re-assessment to determine if food and drink texture can be safely upgraded vs need for instrumentation. - see above 05/01/2024 Therapeutic objectives: oral pharyngeal strengthening - see above 05/01/2024 Patient will participate in Jzdzes-Gksfcgcu-Gdkpwdm ve evaluation to further assess communication and cognition to facilitate progress in therapy. Progress Toward Goals: Progressing as expected Speech Rehab Potential: Good Patient will be discontinued from speech therapy when no further skilled needs are identified in this setting. PLAN: ST Frequency: 3 Times Per Week Treatment Interventions: Dysphagia Management Plan for next visit: Dietary Consistencies, Dysphagia Management, S (more content not included)... [facility] 04-30-2024 ALLIED HEALTH HNO ID: [id number] Author: LUCIANO COYLE MRI Tech Service: Radiology Author Type: Anode Crew Supervisor Type: Allied Health Filed: 04/30/2024 20:28 Note Text: RADIOLOGY SERVICE PROGRESS NOTE DATE OF SERVICE: April 30, 2024 TIME OF SERVICE: 7:00pm EVENT: EXAM/PROCEDURE NOT COMPLETED - Patient refused exam/procedure. ADDITIONAL EVENT DETAILS: Pt refused MRI. Nurse was notified. SIGNATURE: DEREK Rubi PATIENT NAME: Reshma Evans DATE: April 30, 2024 TIME: 8:27 PM PAGER/CONTACT #: [facility] CASE MANAGEMon 04-30-2024 CASE MANAGEM HNO ID: [id number] Author: KRZYSZTOF CORBETT LISW Service: Care Management Author Type: Serging Machine Operator Automatic Type: Care Mgt Progress Note Filed: 04/30/2024 16:02 Note Text: CARE MANAGEMENT PROGRESS NOTE SERVICE DATE: 04/30/2024 SERVICE TIME: 4:00 PM LOS: 4 days Left message to inform Trina greenwood that [facility] can only provide ST twice a week. Acute Rehab referral sent to [facility] SIGNATURE: LISE Jacobo PATIENT NAME: Reshma Evans DATE: April 30, 2024 TIME: 4:00 PM PAGER/CONTACT #: [phone] [facility] CASE MGT INIT Tad 2023 CASE MGT INIT [place] HNO ID: [id number] Author: KRZYSZTOF CORBETT LISW Service: Care Management Author Type: Serging Machine Operator Automatic Type: Care Mgt Initial Assessment Filed: 04/30/2024 12:22 Note Text: CARE MANAGEMENT: ASSESSMENT AND DISCHARGE PLAN SERVICE DATE: April 30, 2024 SERVICE TIME: 12:12 PM PCP: Zoë Kaplan NP, OUTDOOR ADVENTURE INSTRUCTOR Primary Contact: Extended Emergency Contact Information Primary Emergency Contact: Conrad Evans Address: [address] [place] [address] Relation: Spouse Secondary Emergency Contact: WANDYTRINA Mobile Relation: Daughter Admission Status: Inpatient Insurance Provider: [employer] MEDICARE PPO Discharge Planning requested by: Per Department Practice Potential Transition Plans Longterm Facility/Intermediate Care Facility Advance Directives Current Advance Directive: Health Care Power of Hse Coordinator In Chart: Yes Up To Date and Valid: Yes Current Living Arrangements and Support Lives with: Spouse/significant other Type of Residence: Private Residence (House) Does the patient have to climb stairs at home?: Yes;stairs outside the home Support: Children, Spouse/significant other How do you manage to accomplish the following: Independent: Ambulation;Bathe/Shower ;Dress;Meals/Meal Prep;Going to the bathroom;Medication Management Dependent: Transportation to appointments/community Current Services/Equipment Current Post-Acute Service(s): None Current DME Type: None Discharge Planning Patient Goal(s): Be able to go home, General wellness [place] Explained: [place] Given: Yes Level of Care Discussed: Longterm Facility Are you interested in bedside delivery of your medications? No Discharge Planning Participant(s): Children Patient/Family Comments: Caregiver Assessment: Caregiver is ready, willing and able to meet the patient's needs as recommended by the inter-professional team: Yes Name of Caregiver: children Transport at Discharge: Transportation Arrangements: To Be Determined Needs Prior to Discharge: Needs Prior to Discharge: Precertification;Accept ing Facility;Discharge Transportation Post-Acute Discharge Plan: Met with pt who presents as pleasant but gives inconsistent info so contacted daughter, Trina Winston . Pt lives with (who is INAJA) in [facility] in [place]. Daughter explained pt had this same surgery 13 years ago. 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 Neither pt nor drive. Three supportive children live near and assist with needs as well [facility] Discussed with PT who recommends acute rehab. Daughter prefers [facility] as pt has been there before. 2nd choice is [facility]. Will send referral to [facility]. SIGNATURE: LISE Jacobo PATIENT NAME: Reshma Evans DATE: April 30, 2024 TIME: 12:12 PM CONTACT #: [phone] [facility] CONSULTon 04-30-2024 CONSULT HNO ID: [id number] Author: GERALD CLINE MD Service: Neurology Adult Epilepsy Author Type: Physician Type: Consults Filed: 04/30/2024 13:59 Note Text: This is a telephone bzdm-by-nmhy consultation. Recommendations communicated to Dr. Jeronimo. Reason for Consultation: ?seizures HPI History given by: chart 83 year old year old female presents with seizures after resection of meningioma. Timeline history: 09/25/2010 - MRI BRAIN W WO - ?Interval resection of extra-axial enhancing mass lesion located along the medial anterior aspect left frontal lobe.? 08/05/2013 - MRI BRAIN W WO - ?There has been interval development of a small cystic encephalomalacia within the paramedian anterior inferior left frontal lobe in the region of prior meningioma resection.? 02/07/24 - MRI BRAIN W WO - ?Left sphenoid wing mass, likely a meningioma with mild mass effect and mild signal changes of the left temporal lobe. Involvement of the left greater wing of the sphenoid wing with extension into left extraconal orbit as well as extension to the left orbital apex. Due to motion, effect on the optic nerve is poorly assessed. Left exophthalmos is noted. Extensive dural thickening and enhancement is nonspecific, though likely related to mass, either neoplastic (such as meningiomatosis) or reactive. See body of report for additional details. Neurosurgical evaluation is suggested. 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 Chronic parenchymal changes as discussed.? 02/13/24-02/14/24 - admission - ?Patient was evaluated in the ED at [facility] on 02/13/2024 after a ground level fall. As a part of her workup, she would undergo CT imaging of her brain, facial bones, and cervical spine. She also had X-rays completed of her chest, pelvis, both hips, and left knee. These imaging studies would reveal an acute small left frontal subdural hematoma (brain injury/bleed). Due to this injury, she was admitted under the trauma surgery service to the regular nursing floor for further monitoring. Neurosurgery was consulted to manage her brain injury. She would have a repeat CT scan of the brain completed which was found to be stable. Ultimately her injury was treated conservatively with non-operative management. She would not require any medication for seizure prophylaxis. She tolerated a regular diet and worked with physical and occupational therapy. They would recommend home health care at her time of discharge. She was then deemed medically stable for discharge home with home health care by the attending trauma surgeon on 02/14/2024. She will need to follow up with her neurosurgeon on 02/19/2024 for routine follow up care.? 04/26/24 - brief op note - ?Left pterional craniotomy for resection of sphenoid wing meningioma Decompression of the optic canal and lateral orbit? 04/27/24 - MARINO GREEN - ?Seen this am. Patient had been confused and had been improved but seen with nurse and then with NSICU TECHNICAL SALES ADVISOR and patient with some ? Delirium and ? Word finding difficulty. Able to answer her name to me, but then when seen with NSICU TECHNICAL SALES ADVISOR she was not. Able to intermittently answer location and month. Not able to now. Perseverates on someone's name but cannot discern. She says no when asked of headaches, nausea.? 04/28/24 - Neuro ICU - ?04/28: Seizures captured on EEG overnight. Keppra increased. Will call for BEM check later today? 04/29/24 - Neuro ICU - ?04/29: BEM overnight with no seizures. No acute events overnight. NSGY plan to transfer to floor today. Will monitor EEG through tomorrow am and will d/c if remains negative.? 04/26/24 - BEM - ?Continuous Slow, Generalized, Maximum, Left hemisphere PLEDs, Regional, Left temporal region Background Slow? ?Interictal: Asymmetry, Increased Beta, left frontotemporal Continuous Slow, Generalized, Maximum, left hemisphere PLEDs with Overriding Fast, Regional, left frontotemporal Ictal: EEG Seizure, Regional, left frontotemporal No Clinical Signs? ?Asymmetry, Increased Beta, left frontotemporal Continuous Slow, Generalized, Maximum, left hemisphere Intermittent Rhythmic Slow, Regional, Right fronto-temporal Background Slow? ?Interictal: Asymmetry, Increased Beta, left frontotemporal Continuous Slow, Generalized, Maximum, left hemisphere Background Slow,? Last seizure 0104 on 04/28/2024. Pathology is pending. PMHx: Active Ambulatory Problems Benign neoplasm of cerebral meninges (HCC) Date Noted: 10/05/2010 SDH (subdural hematoma) (HCC) Date Noted: 02/13/2024 Trauma Date Noted: 02/14/2024 Fall Date Noted: 02/14/2024 Periorbital hematoma of left eye Date Noted: 02/14/2024 HTN (hypertension) Date Noted: 02/14/2024 Hyperlipidemia Date Noted: 02/14/2024 TBI (traumatic brain injury) (HCC) Date Noted: 02/14/2024 Benign meningioma (HCC) Date Noted: 04/16/2024 Pre-op examination Date Noted: 04/16/2024 Type 2 diabetes mellitus without com (more content not included)... Normal [facility] THERAPY NTon 04-30-2024 THERAPY NT HNO ID: [id number] Author: JERRY THOMPSON, PT Service: Physical Therapy Author Type: Physical Therapist Type: Therapy (PT/OT/Speech/Resp) Filed: 04/30/2024 13:42 Note Text: Physical Therapy Summary SERVICE DATE: 04/30/2024 SERVICE TIME: 1039 to 1109 ROOM: [id number] PT 6 Clicks Score: 18 DISCHARGE RECOMMENDATIONS Acute Rehab Recommended Discharge Disposition Comments: Pt would benefit from skilled therapies in acute rehab setting. Would be able to tolerate 3 hours of therapies. Recommended Discharge Disposition Due to: Functional deficits requiring ongoing therapy service prior to discharge home., Patient requires active, intensive rehabilitation by multiple therapy disciplines. Anticipate the patient will tolerate 3 hours of therapy per day., Requires multiple therapy disciplines ASSESSMENT Response to Therapy Interventions: Good Participation in Activities Pt was able to complete all fuctional mobility as indicated in grid w/o remarkable event. Pt required physical assist from skilled PT as indicated in grid. Pt demonstrated fair balance in sitting and standing, requiring physical assist in standing to facilitate safety in walking while in confines of FWW. PRECAUTIONS Fall Risk, Bed/Chair Alarm, Lines/Tubes/Drains EEG CURRENT HOSPITAL COURSE benign mass s/p L pterional craniotomy for resection of sphenoid wing meningioma with decompression of lateral orbit and optic canal on 04/26/24 Relevant Past Medical History: Diabetes, hypertension, obesity, sleep apnea, brain tumor resection. 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 Still drives. SUBJECTIVE Pt in good mood and agreeable to PT session. Demonstrates severe aphasia. THERAPY DIAGNOSIS Reduced mobility-other, Decreased activities of daily living (ADL), Unsteadiness on feet, Abnormalities of gait and mobility-other, General symptoms and signs-other TREATMENT INTERVENTIONS Evaluation, Therapeutic Activity (58981) Timed Code Treatment (minutes): 8 Skilled Treatment Time (minutes): 30 Therapeutic Activity (37136) Treatment Minutes: 8 Pt educated to optimal body mechanics in transfers to increase participation, was receptive and able to complete in supine-sit tranfers in log-roll. Pt was educated to maintenance of standing tolerance and given opportunity to practice. $ Evaluation-Moderate (23846) Billed Units: 1 unit Therapeutic Activity (68066) Treatment Minutes: 8 $ Therapeutic Activity (43647) Billed Units: 1 unit TRAINING AND EDUCATION PROVIDED Anatomy and Impact on Deficits, Assistive Device Use, Benefits of In-Hospital Mobility, Bed Mobility, Equipment, Positioning, Pre-gait Activities, Precautions/Restriction s, Prosthetic Use AND Skin Preservation, Role of Physical Therapy THERAPEUTIC SKILLS USED Activity Dosing, Assessment of Tolerance Including Vitals Response to Activity, Cues for Sequencing/Proper Technique for Activity, Cuing Tactile, Cuing Verbal, Physical Assist, Postural Alignment Correction, Proprioceptive Input, Task Analysis Learning FUNCTIONAL STATUS Bed Mobility Rolling: Stand By Assistance Supine To Sit: Minimal Assistance Log-roll w/ verbal cues for facilitation, and hand assist for increased safety awareness. Sit to Supine: Stand By Assistance Scooting: Stand By Assistance Transfers Sit To Stand: Contact Guard Assistance Stand To Sit: Stand By Assistance Bed to Chair Gait Minimal Assistance FWW management and gait belt contact to facilitate direction. Gait Device: Wheeled Walker General Deviations/Observations : Flexed trunk posture, Lateral sway increased, Shuffling Gait, Step length decreased, Trunk Control Decreased Gait Distance (feet): 2 side steps to R Stairs Range of Motion: WFL Strength: WFL BALANCE Static Sitting Balance: Good Dynamic Sitting Balance: Fair Static Standing Balance: Good GOALS Able to Perform HEP with: Independent Transfer Sit to/from Stand with: Stand By Assistance Ambulate with: Contact Guard Assistance Distance: 40' Device: Wheeled Walker Ambulate Up and Down Steps with: Contact Guard Assistance Number of Steps: 4 Device: Rail, Cane Transfer: Pt will demonstrate stepping transfer from bed-chair w/ CGA Rehab Potential: Good PLAN PT Frequency: 4 Times Per Week (1-4) Treatment Interventions: Education, Self Care / Home Management, Energy Conservation Training, Joint Mobility, Strengthening, Functional Mobility Training, Balance Training, Neuromuscular Re-education, Pain Management Plan for Next (more content not included)... Normal [facility] CBC panel Auto (Bld)on 04-29 Erythrocyte distribution width (RBC) [Ratio] 13.6 % Normal 11.5-15.0 [facility] Comment on above: Order Comment: Speci men Type: BLOOD SPECIMENOrdering Facility: [facility] Address: [address] [place] [address] Performed By: #### 5 5454-3 ####[facility] LABCLIA [id number] [place] [address] [place]#### 31636-4 ####[facility] LABORATORYCLIA [id number] [address] [place] Hematocrit (Bld) [Volume fraction] 29.1 % Low 36.0-46.0 [facility] Comment on above: Order Comment: Speci men Type: BLOOD SPECIMENOrdering Facility: [facility] Address: [address] [place] [address] Performed By: #### 5 5454-3 ####[facility] LABCLIA [id number] [address] [place]#### 31126-8 ####[facility] LABORATORYCLIA [id number] [address] [place] Hemoglobin (Bld) [Mass/Vol] 9.4 g/dL Low 11.5-15.5 [facility] Comment on above: Order Comment: Speci men Type: BLOOD SPECIMENOrdering Facility: [facility] Address: [address] [place] [address] Performed By: #### 5 5454-3 ####[facility] LABCLIA [id number] [address] [place]#### 96912-7 ####[facility] LABORATORYCLIA [id number] [address] [place] MCH (RBC) [Entitic mass] 30.8 pg Normal 26.0-34.0 [facility] Comment on above: Order Comment: Speci men Type: BLOOD SPECIMENOrdering Facility: [facility] Address: [address] [place] [address] Performed By: #### 5 5454-3 ####[facility] LABCLIA [id number] [place] [address] [place]#### 32596-3 ####[facility] LABORATORYCLIA [id number] [address] [place] [facility] MCHC (RBC) [Mass/Vol] 32.3 g/dL Normal 30.5-36.0 [facility] Comment on above: Order Comment: Speci men Type: BLOOD SPECIMENOrdering Facility: [facility] Address: [address] [place] [address] Performed By: #### 5 5454-3 ####[facility] LABCLIA [id number] [place] [address] [place]#### 42987-6 ####[facility] LABORATORYCLIA [id number] [address] [place] [facility] MCV (RBC) [Entitic vol] 95.4 fL Normal 80.0-100.0 [facility] Comment on above: Order Comment: Speci men Type: BLOOD SPECIMENOrdering Facility: [facility] Address: [address] [place] [address] Performed By: #### 5 5454-3 ####[facility] LABCLIA [id number] [address] [place]#### 65571-6 ####[facility] LABORATORYCLIA [id number] [address] [place] Nucleated RBC (Bld) [#/Vol] 10*3/uL Normal <0.01 [facility] Comment on above: Order Comment: Speci men Type: BLOOD SPECIMENOrdering Facility: [facility] Address: [address] [place] [address] Performed By: #### 5 5454-3 ####[facility] LABCLIA [id number] [place] [address] [place]#### 41287-5 ####[facility] LABORATORYCLIA [id number] [place] [address] [place] Platelet mean volume (Bld) [Entitic vol] 10.7 fL Normal 9.0-12.7 [facility] Comment on above: Order Comment: Speci men Type: BLOOD SPECIMENOrdering Facility: [facility] Address: [facility] [place] [address] Performed By: #### 5 5454-3 ####[facility] LABCLIA [id number] [place] [address] [place]#### 16462-7 ####[facility] LABORATORYCLIA [id number] [address] Platelets (Bld) [#/Vol] 157 10*3/uL Normal 150-400 [facility] Comment on above: Order Comment: Speci men Type: BLOOD SPECIMENOrdering Facility: [facility] Address: [address] [place] [address] Performed By: #### 5 5454-3 ####[facility] LABCLIA [id number] [address]#### 98424-9 ####[facility] LABORATORYCLIA [id number] [address] [place] RBC (Bld) [#/Vol] 3.05 10*6/uL Low 3.90-5.20 [facility] Comment on above: Order Comment: Speci men Type: BLOOD SPECIMENOrdering Facility: [facility] Address: [facility] [place] [address] Performed By: #### 5 5454-3 ####[facility] LABCLIA [id number] [place] [address] [place]#### 66505-6 ####[facility] LABORATORYCLIA [id number] [address] [place] WBC (Bld) [#/Vol] 10.84 10*3/uL Normal 3.70-11.00 [facility] Comment on above: Order Comment: Speci men Type: BLOOD SPECIMENOrdering Facility: [facility] Address: [address] [place] [address] Performed By: #### 5 5454-3 ####[facility] LABCLIA [id number] [id number] [id number] [facility]#### 66253-9 ####[facility] LABORATORYCLIA [id number] [place] [address] [facility] CONSULTon 04-29-2024 CONSULT HNO ID: [id number] Author: FLYNN RODRIGUEZ MD Service: Hospital Medicine Author Type: Physician Type: Consults Filed: 04/29/2024 18:08 Note Text: DEPARTMENT OF HOSPITAL MEDICINE INITIAL CONSULTATION NOTE SERVICE DATE: 04/29/2024 SERVICE TIME: 5:40 PM Primary Care Physician: Zoë Kaplan NP, NELLY NIGHT AND WEEKEND COVERAGE: From 7am - 7pm, please call Team color After 7pm, please call cross cover pager #[phone] Subjective CHIEF COMPLAINT: Meningioma HPI: This is a 83 year old female with history of HTN, HLD, KIMBERLY (not on CPAP), T2DM (diet controlled), benign meningioma who presented for planned neurosurgical procedure for meningioma. She was taken to the OR 04/26 by neurosurgery and underwent left craniotomy and resection of sphenoid wing meningioma, decompression of optic canal and lateral orbit. She was admitted to neuro ICU post-operatively. Post-op imaging was notable for pneumocephalus for which she was started on intermittent high flow supplemental oxygen. She exhibited some word finding difficulty in the ICU, for which a CTH and CTA H/N were obtained, which were notable for post-operative changes with interval improvement of pneumocephalus, scattered areas of blood products/hemorrhage in resection tract. No evident infarct or new hemorrhage, incidental 5 mm R ICA aneurysm, no LVO. EEG obtained which was notable for seizure so Keppra was increased. She was transferred to medical floor 04/29. Medicine is consulted forperi-operative medical management. Patient currently resting in bed. Denies pain or complaints. Has been tolerating diet well. PAST MEDICAL HISTORY Diagnosis Date Benign meningioma (HCC) BPPV (benign paroxysmal positional vertigo) Diabetes (HCC) HTN (hypertension) 02/14/2024 Hyperlipidemia 02/14/2024 Obesity PONV (postoperative nausea and vomiting) SDH (subdural hematoma) (HCC) 02/13/2024 Sleep apnea PAST SURGICAL HISTORY Procedure Laterality Date ARTHRP KNE CONDYLEANDPLATU MEDIALANDLAT COMPARTMENTS 07/10/1979 right PAST SURGICAL HISTORY OF Bilateral total knees RECONSTRUCT CLEFT PALATE Infancy RECONSTRUCTION ROTATOR CUFF AVULSION CHRONIC 07/10/2007 right REPAIR CLEFT LIP Infancy REVISE MEDIAN N/CARPAL TUNNEL SURG FAMILY HISTORY Problem Relation Age of Onset other (leukemia [Other]) Sister 49 other (esophageal cancer [Other]) Brother 62 Social History Tobacco Use Smoking status: Never Smokeless tobacco: Never Vaping Use Vaping status: Never Used Substance Use Topics Alcohol use: Not Currently Comment: occasional/social Drug use: No HOME MEDICATIONS: Prior to Admission Medications Prescriptions Last Dose Informant Patient Reported? Taking? CALCIUM/MAG OXIDE/VITAMIN D3 (CORAL CALCIUM PLUS ORAL) 04/26/2024 at 0445 Patient Yes Yes Sig: pt not sure of dosage takes 1 daily Cholecalciferol, Vitamin D3, (VITAMIN D) 1,000 unit ORAL Cap Past Week Patient Yes Yes Sig: Take one(1) tablet daily. Cunningham-3 Fatty Acids-Vitamin E (FISH OIL) 1,000 mg cap 04/25/2024 Yes Yes Sig: Take 1 capsule by mouth. ascorbic acid (VITAMIN C) 500 mg ORAL tablet Past Week Patient Yes Yes Sig: Take one(1) tablet daily. fluorometholone (FML LIQUID FILM) 0.1 % ophthalmic suspension 04/25/2024 Yes Yes Sig: Use 1 Drop in the left eye two times a day. gabapentin (NEURONTIN) 100 mg capsule 04/25/2024 Yes Yes Sig: Take 100 mg by mouth two times a day. hydroCHLOROthiazide 12.5 mg tablet 04/25/2024 Yes Yes Sig: Take 12.5 mg by mouth once daily. lisinopril (ZESTRIL) 10 mg tablet 04/25/2024 Yes Yes Sig: Take 10 mg by mouth once daily. multivitamin/iron/folic acid (CENTRUM ORAL) Past Week Yes Yes Sig: Take by mouth. nitrofurantoin monohydrate and macrocrystal (MACROBID) 100 mg capsule 04/26/2024 at 0445 No Yes Sig: Take 1 capsule by mouth two times a day for 5 days. nystatin (MYCOSTATIN) powder 04/25/2024 Yes Yes propranolol (INDERAL) 20 mg tablet 04/26/2024 at 0445 Yes Yes Sig: Take 20 mg by mouth two times a day. simvastatin (ZOCOR) 40 mg tablet 04/25/2024 Patient Yes Yes Sig: Take by mouth. vitamin E, dl,tocopheryl acet, (VITAMIN E, DL, ACETATE,) 180 mg (400 unit) capsule Past Week Yes Yes Sig: Take 180 mg by mouth. Facility-Administered Medications: None ALLERGIES No Known Allergies REVIEW OF SYSTEM: All ROS are negative except those noted in HPI Objective PHYSICAL EXAM: BP 117/61 Pulse 59 Temp (Src) 98.1 (Temporal) Resp 12 Ht 5' 5.984 (1.68m) Wt 177 lb 11.1 oz (80.6kg) SpO2 99% BMI 28.69 kg/(m2). O2 Therapy: Nasal Cannula, Liters: 3.0 Constitutional - vitals as above, not in acute distress Eyes- Perrla, no scleral icterus Ear, Nose, throat and Mouth- Normal oral mucosa, Trachea midline Cardiovascular system- RRR, No murmur/gallop or rub, pulses 2+, no peripheral edema Respiratory- NO accessory muscle use, Clear to auscultate both sides, No wheezing/rales Gastrointestinal sy (more content not included)... Normal [facility] HbA1c (Bld)on 04-29-2024 Average glucose Estimated from glycated hemoglobin (Bld) [Mass/Vol] 120 mg/dL Normal [facility] Comment on above: Order Comment: Speci men Type: BLOOD SPECIMENOrdering Facility: [facility] Address: [address] [place] [address] Result Comment: eAG: (Estimated average glucose) is a calculated value from HgbA1c and is veterans service representative of the average blood glucose level in the last 2-3 month period. Performed By: #### 5 5454-3 ####[facility] LABCLIA [id number] [facility] [place] [address] [place]#### 99663-7 ####[facility] LABORATORYCLIA [id number] [place] [address] [place] [facility] HbA1c (Bld) [Mass fraction] 5.8 % High 4.3-5.6 [facility] Comment on above: Order Comment: Speci men Type: BLOOD SPECIMENOrdering Facility: [facility] Address: [address] [place] [address] Result Comment: Pedro [place] Diabetes Association guidelines indicate that patients with HgbA1c in the range 5.7-6.4% are at increased risk for development of diabetes, and intervention by lifestyle modification may be beneficial. HgbA1c greater or equal to 6.5% is considered diagnostic of diabetes. Performed By: #### 5 5454-3 ####[facility] LABCLIA [id number] [address]#### [address]84[address]-1 ####[facility] LABORATORYCLIA [id number] [place] [address] [facility] THERAPY NTon 04-29-2024 THERAPY NT HNO ID: [id number] Author: GRACE ADAMS OTR/Rohan Service: Occupational Therapy Author Type: Occupational Therapist Type: Therapy (PT/OT/Speech/Resp) Filed: 04/29/2024 15:35 Note Text: Occupational Therapy Evaluation Summary SERVICE DATE: 04/29/2024 SERVICE TIME: 1445 to 1510 ROOM: [place] [address] OT 6 Clicks Score: 17 DISCHARGE RECOMMENDATIONS Acute Rehab Recommended Discharge Disposition Due to: Functional deficits requiring ongoing therapy service prior to discharge home., Patient requires active, intensive rehabilitation by multiple therapy disciplines. Anticipate the patient will tolerate 3 hours of therapy per day., ADL impairment, Cognitive deficits new/worsened, Coordination deficits, Motor planning deficits, Requires multiple therapy disciplines ASSESSMENT Response to Therapy Interventions: Good Participation in Activities PRECAUTIONS Fall Risk, Bed/Chair Alarm, Lines/Tubes/Drains EEG CURRENT HOSPITAL COURSE benign mass s/p L pterional craniotomy for resection of sphenoid wing meningioma with decompression of lateral orbit and optic canal on 04/26/24 Relevant Past Medical History: Diabetes, hypertension, obesity, sleep apnea, brain tumor resection. 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 Still drives. Baseline Cognition: Oriented to self, Oriented to place, Oriented to time, Oriented to situation SUBJECTIVE agreeable to session; son and at bedside; reports she had another resection back in 2010; pt has been dealing with some short-term memory issues for past 4-5 mos COGNITION Communication Deficits: Other: See Comment (dysarthria noted; elongated words/sentences during conversation) Orientation Deficits: Not oriented to Situation (was unaware she had already had surgery) Responsiveness: Alert Follows Commands: 1-step Commands, With Repetition, Cueing Needed Cueing to Follow Commands: Minimum Memory Deficits: Short Term Executive Function Deficits: Sequencing, Insight to Deficits, Problem Solving, Motor Planning, Safety Awareness Clock Draw Test: 0-Abnormal (04/29/24) Word Recall: 1-recalled word (04/29/24) Mini Cog Score: 1 (04/29/24) THERAPY DIAGNOSIS Reduced mobility-other, Decreased activities of daily living (ADL), Unsteadiness on feet, Lack of coordination-other, Signs and Symptoms Involving Cognitive Functions and Awareness TREATMENT INTERVENTIONS Evaluation, Therapeutic Activity (78977) Timed Code Treatment (minutes): 8 Skilled Treatment Time (minutes): 25 $ Evaluation - Moderate (36067) Billed Units: 1 unit Therapeutic Activity (42260) Treatment Minutes: 8 $ Therapeutic Activity (23785) Billed Units: 1 unit Facilitated safe bed mobility with min verbal cues and minimal assistance due to intermittent moments of impaired balance, requiring min assistance to correct I.e. during LB dressing task and additional assessments. Instructed patient on safe hand and body placement during sit to stand transfers as well as proper wheeled walker management to improve stability with out of bed mobility and ADLs. Facilitated safe functional mobility to/from bathroom to assess functional mobility independence, activity tolerance, dynamic standing balance, and ability to complete safe household distances. Provided min verbal cues for proper hand/body placement while utilizing wheeled walker, minimal assistance / fall guarding to ensure safety due to slight unsteadiness, and cues to navigate safely around hospital room. Facilitated safe commode transfer in room to assess ADL independence providing min verbal cues to utilize grab bars and position self appropriately during [id number] transfers. Discussed role of OT in the hospital setting as well as OT goals to work towards to progress to her baseline. Discussion had with patient's and son re: d/c planning. TRAINING AND EDUCATION PROVIDED Activity Adaptation/Compensatory Strategies, Adaptive Equipment/DME, Assistive Device Use, Bed Mobility, Benefits of In-Hospital Mobility, Cognitive Skills, Command Following, Functional Mobility Involving ADLs, Lower Extremity Dressing, Orientation, Precautions/Restriction s, Role of Occupational Therapy, Sitting Balance to Improve Cobb with ADLs/Self-Care, Standing Balance to Improve Cobb with ADLs/Self-Care, Transfer - Sit to Stand THERAPEUTIC SKILLS USED Activity Dosing, Assessment of Tolerance Including Vitals Response to Activity, Cues for Sequencing/Proper Technique for Activity, Cuing Verbal, Physical Assist, Therapeutic Use of Self FUNCTIONAL STATUS Activities of Daily Living Assist Level Additional Information Feeding Set Up Dariana (more content not included)... Normal [facility] CBC panel Auto (Bld)on 04-28 Erythrocyte distribution width (RBC) [Ratio] 13.5 % Normal 11.5-15.0 [facility] Comment on above: Order Comment: Speci men Type: BLOOD SPECIMENOrdering Facility: [facility] Address: [address] [place] [address] Performed By: #### 5 8410-2 ####[facility] LABORATORYCLIA [id number] [place] [address] [place] Hematocrit (Bld) [Volume fraction] 28.9 % Low 36.0-46.0 [facility] Comment on above: Order Comment: Speci men Type: BLOOD SPECIMENOrdering Facility: [facility] Address: [address] [place] [address] Performed By: #### 5 8410-2 ####[facility] LABORATORYCLIA [id number] [place] [address] [place] Hemoglobin (Bld) [Mass/Vol] 9.5 g/dL Low 11.5-15.5 [facility] Comment on above: Order Comment: Speci men Type: BLOOD SPECIMENOrdering Facility: [facility] Address: [address] [place] [address] Performed By: #### 5 8410-2 ####[facility] LABORATORYCLIA [id number] [address] MCH (RBC) [Entitic mass] 30.4 pg Normal 26.0-34.0 [facility] Comment on above: Order Comment: Speci men Type: BLOOD SPECIMENOrdering Facility: [facility] Address: [address] [place] [address] Performed By: #### 5 8410-2 ####[facility] LABORATORYCLIA [id number] [address] STATES OF [facility] MCHC (RBC) [Mass/Vol] 32.9 g/dL Normal 30.5-36.0 [facility] Comment on above: Order Comment: Speci men Type: BLOOD SPECIMENOrdering Facility: [facility] Address: [address] [place] [address] Performed By: #### 5 8410-2 ####[facility] LABORATORYCLIA [id number] [address] MCV (RBC) [Entitic vol] 92.6 fL Normal 80.0-100.0 [facility] Comment on above: Order Comment: Speci men Type: BLOOD SPECIMENOrdering Facility: [facility] Address: [address] [place] [address] Performed By: #### 5 8410-2 ####[facility] LABORATORYCLIA [id number] [address] Nucleated RBC (Bld) [#/Vol] 10*3/uL Normal <0.01 [facility] Comment on above: Order Comment: Speci men Type: BLOOD SPECIMENOrdering Facility: [facility] Address: [address] [place] [address] Performed By: #### 5 8410-2 ####[facility] LABORATORYCLIA [id number] [address] Platelet mean volume (Bld) [Entitic vol] 10.2 fL Normal 9.0-12.7 [facility] Comment on above: Order Comment: Speci men Type: BLOOD SPECIMENOrdering Facility: [facility] Address: [address] [place] [address] Performed By: #### 5 8410-2 ####[facility] LABORATORYCLIA [id number] [address] OF [facility] Platelets (Bld) [#/Vol] 156 10*3/uL Normal 150-400 [facility] Comment on above: Order Comment: Speci men Type: BLOOD SPECIMENOrdering Facility: [facility] Address: [address] [place] [address] Performed By: #### 5 8410-2 ####[facility] LABORATORYCLIA [id number] [address] RBC (Bld) [#/Vol] 3.12 10*6/uL Low 3.90-5.20 [facility] Comment on above: Order Comment: Speci men Type: BLOOD SPECIMENOrdering Facility: [facility] Address: [address] [place] [address] Performed By: #### 5 8410-2 ####[facility] LABORATORYCLIA [id number] [address] WBC (Bld) [#/Vol] 14.25 10*3/uL High 3.70-11.00 [facility] Comment on above: Order Comment: Speci men Type: BLOOD SPECIMENOrdering Facility: [facility] Address: [address] [place] [address] Performed By: #### 5 8410-2 ####[facility] LABORATORYCLIA [id number] [address] ECG COMPLETEon 04-28-2024 ECG COMPLETE Ventricular Rate : 5 4 BPM Atrial Rate : 54 BPM P-R Interval : 228 ms QRS Duration : 94 ms Q-T Interval : 450 ms QTC Calculation(Bazett) : 426 ms Calculated P Lavinia : 45 degrees Calculated R Lavinia : 1 degrees Calculated T Lavinia : 12 degrees SINUS BRADYCARDIA WITH 1ST DEGREE A-V BLOCK OTHERWISE NORMAL ECG NO PREVIOUS ECGS AVAILABLE Confirmed by MD VARGHESE VINAYAK ([id number]) on 04/29/2024 2:53:47 PM NAME : RESHMA EVANS PID : [id number] : 1940 Gender : Female Race : ORD : [id number] Procedure Date : Apr 28 2024 01:50:35 Edit Date : Apr 29 2024 14:53:49 Diagnosis: SINUS BRADYCARDIA WITH 1ST DEGREE A-V BLOCK OTHERWISE NORMAL ECG NO PREVIOUS ECGS AVAILABLE Confirmed by MD VARGHESE VINAYAK ([id number]) on 04/29/2024 2:53:47 PM Test Reason : Arrhythmia Location : [address] : [place] [address] Overread By : MD VARGHESE VINAYAK Edited By : MD VARGHESE VINAYAK Referred By : NEYMAR JERONIMO Acquired by : PARISH BARAHONA [facility] THERAPY NTon 04-28-2024 THERAPY NT HNO ID: [id number] Author: LUIS CROSS CCC-BRIDGE MANAGER Service: Speech/Swallow Author Type: Speech Language Pathologist Type: Therapy (PT/OT/Speech/Resp) Filed: 04/28/2024 12:02 Note Text: Speech Therapy Clinical Swallow Evaluation SERVICE DATE: 04/28/2024 SERVICE TIME: 1138 to 1154 ROOM: [place] [address] IMPRESSION: Swallow Deficits Identified / Suspected: Oropharyngeal dysphagia Diet Recommendations: Soft and Bite-Sized IDDSI Level 6 Thin Liquids IDDSI Level 0 Swallowing Precautions Recommendations: 1:1 Supervision Feed / Eat at a slow rate Sit upright 90 degrees for all PO Small Bite/Sip Rigid Oral Hygiene Nursing Recommendations: Reinforce use of swallowing strategies Recommended Discharge Disposition: Continued Skilled Speech Therapy Current Hospital Course: Admitted following planned craniotomy for resection of meningioma 04/26. 04/27 CT Brain: post op changes post left middle cranial fossa/frontal pole mass resection with scattered areas of worsening blood products/hemorrhage within resection tract, associated mass effect or midline shift Rehabilitation Precautions: Aspiration Precautions, Cognitive Linguistics Deficits, Dysphagia, Communication Deficits Reason for Speech Therapy Consult: post crani meningioma resection, failed RN swallow screen Relevant Past Medical History: BPPV, SDH Response to Therapy Interventions: Cognitive Deficits, Good Participation in activities, Multiple medical concerns, Receptive Family / Caregivers Subjective: Alert, up in bed and agreeable to evaluation Current Status Oral Hygiene: Clear, dry oral cavity, Oral Health Assessment Tool (OHAT) Dentition: Retains Natural Dentition, Dentures-Upper Partial Current Feeding Method: IV Current Diet Textures: NPO Current Level Of Communication: Verbal Current Management Of Secretions: Able to self-manage Oral Motor Exam: Within Functional Limits Oral Health Assessment Tool (OHAT) Lips: 0 Tongue: 0 Gums and Tissues: 0 Saliva: 1 Natural Teeth: 0 Dentures: 0 Oral Cleanliness: 0 Dental Pain: 0 OHAT Total Score: 1 Swallow Assessment Position Of Patient During Assessment: Upright In Bed Consistencies Presented: Thin Liquids IDDSI Level 0, Pureed IDDSI Level 4, Solid Compensatory Strategies Utilized During Assessment: 1:1 Supervision, Alternate bites and sips, Feed / Eat at a slow rate, Sit upright 90 degrees for all PO, Small Bite/Sip Clinical Swallow Assessment Oral Pharyngeal Swallow Assessment: Preparatory / Oral Phase: Mastication: Suspect impairment Bolus Manipulation: Suspect impairment A-P Transit: Suspect impairment Oral Residue: Mildly Impaired Pharyngeal Phase: Initiation of Swallow: Suspect impairment Range of Hyoid/Laryngeal Elevation: Suspect impairment Reflexive Throat Clear and Cough after Swallowing: No Multiple Swallows: No -Patient alert, up in bed on BRIDGE MANAGER arrival, agreeable to evaluation -Able to feed self with assist -Mastication time increased for solids -Trace to min oral residuals post swallow, able to clear with cued liquid wash -Laryngeal movement detected upon palpation of swallow -No cough, throat clear, or change in vocal quality with po trials -Unable to follow commands to complete 3 oz water challenge -Recommend diet and strategies as above -May benefit from instrumental assessment to further evaluate oropharyngeal swallow function as clinically indicated Patient /Caregiver Goals: Eat/Drink Without Restrictions Goals for Plan of Care: Goals: SWALLOWING: Patient / Caregiver will demonstrate knowledge of taught compensatory strategies and dietary consistency recommendations to optimize functional swallow function without overt clinical signs and symptoms of aspiration or dysphagia Swallow Goals: Patient will tolerate Soft and Bite-Sized IDDSI Level 6 diet consistency while utilizing compensatory/swallowing strategies given minimal cues in 90% of trials so that the patient will minimize the signs/symptoms of dysphagia. Patient will tolerate Thin Liquids IDDSI Level 0 consistency while utilizing compensatory/swallowing strategies given minimal cues in 90% of trials so that the patient will minimize the signs/symptoms of dysphagia. Patient, Caregiver, Family will demonstrate adequate return of knowledge of all compensatory strategies/instruction to effectively assist the patient in immediate safety with oral intake and swallowing. Patient will participate with swallow re-assessment to determine if food and drink texture can be safely upgraded vs need for instrumentation. Patient will participate in Wbcoxz-Yvwptzwb-Lxjirvt ve evaluation to further assess communication and cognition to facilitate progress in therapy. Speech Rehab Potential: Good Patient will be discontinued from speech therapy when no further skilled needs are identified in this setting. PLAN: ST Frequency: 3 Times Per Week Treatment Interventi (more content not included)... Normal [facility] Basic metabolic 2000 panelon 04-27-2024 Anion gap [Moles/Vol] 9 mmol/L Normal 8-15 [facility] Comment on above: Order Comment: Jr thomas Type: BLOOD SPECIMENOrdering Facility: [facility] Address: [address] [place] [address] Performed By: #### 2 4321-2, , 2776-07 ####[facility] LABORATORYCLIA [id number] [place] [address] [place] Calcium [Mass/Vol] 8.6 mg/dL Normal 8.5-10.2 [facility] Comment on above: Order Comment: Jr thomas Type: BLOOD SPECIMENOrdering Facility: [facility] Address: [address] [place] [address] Performed By: #### 2 4321-2, , 2776-07 ####[facility] LABORATORYCLIA [id number] [place] [address] [place] Chloride [Moles/Vol] 102 mmol/L Normal 98-107 [facility] Comment on above: Order Comment: Speci men Type: BLOOD SPECIMENOrdering Facility: [facility] Address: [address] [place] [address] Performed By: #### 2 4321-2, , 2776-07 ####[facility] LABORATORYCLIA [id number] [place] [address] [place] CO2 [Moles/Vol] 25 mmol/L Normal 22-30 [facility] Comment on above: Order Comment: Speci men Type: BLOOD SPECIMENOrdering Facility: [facility] Address: [address] [place] [address] Performed By: #### 2 4321-2, , 2776-07 ####[facility] LABORATORYCLIA [id number] [place] [id number] [place] Creatinine [Mass/Vol] 0.90 mg/dL Normal 0.58-0.96 [facility] Comment on above: Order Comment: Speci men Type: BLOOD SPECIMENOrdering Facility: [facility] Address: [address] [place] [address] Performed By: #### 2 4321-2, , 2776-07 ####[facility]PITALCLIA [id number] [address] STATES OF [facility] Creatinine and Glomerular filtration rate.predicted panel (S/P/Bld) 63 mL/min/1.73m??? Normal >=60 [facility] Comment on above: Order Comment: Speci men Type: BLOOD SPECIMENOrdering Facility: [facility] Address: [address] [place] [address] Result Comment: Annalise mated Glomerular Filtration Rate (eGFR) is calculated using the 2020 CKD-EPI creatinine equation. This equation utilizes serum creatinine, sex, and age as parameters. The creatinine assay has traceable calibration to isotope dilution-mass spectrometry. Refer to KDIGO guidelines for clinical interpretation. In patients with unstable renal function, e.g. those with acute kidney injury, the eGFR may not accurately reflect actual GFR. Performed By: #### 2 4321-2, , 2776-07 ####[facility] LABORATORYCLIA [id number] [place] [id number] [place] Glucose [Mass/Vol] 167 mg/dL High 74-99 [facility] Comment on above: Order Comment: Speci men Type: BLOOD SPECIMENOrdering Facility: [facility] Address: [address] [place] [address] Result Comment: The [place] Diabetes [employer] (ADA) provides guidance for cutoff values for fasting glucose and random glucose. The ADA defines fasting as no caloric intake for at least 8 hours. Fasting plasma glucose results between 100 to 125 mg/dL indicate increased risk for diabetes (prediabetes). Fasting plasma glucose results greater than or equal to 126 mg/dL meet the criteria for diagnosis of diabetes. In the absence of unequivocal hyperglycemia, results should be confirmed by repeat testing. In a patient with classic symptoms of hyperglycemia or hyperglycemic crisis, random plasma glucose results greater than or equal to 200 mg/dL meet the criteria for diagnosis of diabetes. Reference: Standards of Medical Care in Diabetes 2016, [place] [employer]. Diabetes Care. 2016.39(Suppl 1). Performed By: #### 2 4321-2, , 2776-07 ####[facility] LABORATORYCLIA [id number] [place] [address] [place] Potassium [Moles/Vol] 3.8 mmol/L Normal 3.7-5.1 [facility] Comment on above: Order Comment: Speci men Type: BLOOD SPECIMENOrdering Facility: [facility] Address: [address] [place] [address] Performed By: #### 2 4321-2, , 2776-07 ####[facility] LABORATORYCLIA [id number] [place] [address] [place] Sodium [Moles/Vol] 136 mmol/L Normal 136-144 [facility] Comment on above: Order Comment: Speci men Type: BLOOD SPECIMENOrdering Facility: [facility] Address: [address] [place] [address] Performed By: #### 2 4321-2, , 2776-07 ####[facility] LABORATORYCLIA [id number] [place] [address] [place] Urea nitrogen [Mass/Vol] 20 mg/dL Normal 7-21 [facility] Comment on above: Order Comment: Speci men Type: BLOOD SPECIMENOrdering Facility: [facility] Address: [address] [place] [address] Performed By: #### 2 4321-2, , 2776-07 ####[facility] LABORATORYCLIA [id number] [address] STATES OF [facility] CBC panel Auto (Bld)on 04-27 Erythrocyte distribution width (RBC) [Ratio] 13.2 % Normal 11.5-15.0 [facility] Comment on above: Order Comment: Speci men Type: BLOOD SPECIMENOrdering Facility: [facility] Address: [address] [place] [address] Performed By: #### 5 8410-2 ####[facility] LABORATORYCLIA [id number] [address] Hematocrit (Bld) [Volume fraction] 31.4 % Low 36.0-46.0 [facility] Comment on above: Order Comment: Speci men Type: BLOOD SPECIMENOrdering Facility: [facility] Address: [address] [place] [address] Performed By: #### 5 8410-2 ####[facility]PITALCLIA [id number] [address] Hemoglobin (Bld) [Mass/Vol] 10.6 g/dL Low 11.5-15.5 [facility] Comment on above: Order Comment: Speci men Type: BLOOD SPECIMENOrdering Facility: [facility] Address: [address] [place] [address] Performed By: #### 5 8410-2 ####[facility] LABORATORYCLIA [id number] [address] MCH (RBC) [Entitic mass] 30.8 pg Normal 26.0-34.0 [facility] Comment on above: Order Comment: Speci men Type: BLOOD SPECIMENOrdering Facility: [facility] Address: [address] [place] [address] Performed By: #### 5 8410-2 ####[facility] LABORATORYCLIA [id number] [address] [place] MCHC (RBC) [Mass/Vol] 33.8 g/dL Normal 30.5-36.0 [facility] Comment on above: Order Comment: Speci men Type: BLOOD SPECIMENOrdering Facility: [facility] Address: [address] [place] [address] Performed By: #### 5 8410-2 ####[facility] LABORATORYCLIA [id number] [address] MCV (RBC) [Entitic vol] 91.3 fL Normal 80.0-100.0 [facility] Comment on above: Order Comment: Speci men Type: BLOOD SPECIMENOrdering Facility: [facility] Address: [address] [place] [address] Performed By: #### 5 8410-2 ####[facility] LABORATORYCLIA [id number] [address] OF [facility] Nucleated RBC (Bld) [#/Vol] 10*3/uL Normal <0.01 [facility] Comment on above: Order Comment: Speci men Type: BLOOD SPECIMENOrdering Facility: [facility] Address: [address] [place] [address] Performed By: #### 5 8410-2 ####[facility] LABORATORYCLIA [id number] [address] Platelet mean volume (Bld) [Entitic vol] 10.1 fL Normal 9.0-12.7 [facility] Comment on above: Order Comment: Speci men Type: BLOOD SPECIMENOrdering Facility: [facility] Address: [address] [place] [address] Performed By: #### 5 8410-2 ####[facility] LABORATORYCLIA [id number] [address] Platelets (Bld) [#/Vol] 164 10*3/uL Normal 150-400 [facility] Comment on above: Order Comment: Speci men Type: BLOOD SPECIMENOrdering Facility: [facility] Address: [address] [place] [address] Performed By: #### 5 8410-2 ####[facility] LABORATORYCLIA [id number] [place] [address] [place] RBC (Bld) [#/Vol] 3.44 10*6/uL Low 3.90-5.20 [facility] Comment on above: Order Comment: Speci men Type: BLOOD SPECIMENOrdering Facility: [facility] Address: [address] [place] [address] Performed By: #### 5 8410-2 ####[facility] LABORATORYCLIA [id number] [place] [id number] [facility] WBC (Bld) [#/Vol] 11.00 10*3/uL Normal 3.70-11.00 [facility] Comment on above: Order Comment: Speci men Type: BLOOD SPECIMENOrdering Facility: [facility] Address: [address] [place] [address] Performed By: #### 5 8410-2 ####[facility] LABORATORYCLIA [id number] [place] [id number] [facility] CT BRAIN WO IVCONon 04-27-[address] BRAIN WO IVCON * * *Final Report* * * DATE OF EXAM: Apr 27 2024 5:15AM [facility] 0504 - CT BRAIN WO IVCON / PROCEDURE REASON: Mental status change, unknown cause * * * * Physician Interpretation * * * * EXAMINATION: CTA HEAD W IVCON, CTA NECK W IVCON, CT BRAIN WO IVCON HISTORY: Aphasia TECHNIQUE: Routine CT of the brain without IV contrast. Next, high resolution axial images were obtained through the head, neck and superior mediastinum following bolus administration of intravenous contrast for CT angiography. 3D maximum intensity projection images were created, reviewed and archived . MQ: [id number]_4 Contrast: 100 mL Omnipaque [address] Radiation dose: Integrated Dose-Length Product (DLP) for this visit = 1271 mGy*cm. CT Dose Reduction Employed: Automated exposure control(AEC) and iterative recon COMPARISON: CT head 04/26/2024 4:45 PM RESULT: BRAIN: Acute change: Postoperative changes status post left middle cranial fossa and frontal bone extra-axial mass resection with interval improvement of nondependent pneumocephalus with redemonstration of right frontal pole and anterior temporal vasogenic edema which is at least unchanged to possibly slightly worsened however this could also be somewhat artifactual given improvement of nondependent pneumocephalus. Additionally, scattered areas of blood products/hemorrhage within the operative tract is intervally worsened specifically in the middle cranial fossa where isolated area of hemorrhage within operative resection track now measures 15 x 26 mm, previously this area had only 2 serpiginous areas of hemorrhage which measure approximately 3 mm x 26 mm. Also, postoperative hemorrhage within the resection cavity along the anterior middle cranial fossa has intervally worsened now measuring 2.0 x 2.8 cm, previously 1.0 x 2.7 cm. Also, hemorrhage along the right frontal pole has also intervally worsened now measuring 6 x 10 mm, previously this was largely obscured by postoperative pneumocephalus. Another focus of linear hemorrhage on image 20 series 3 is also more conspicuous however this also is largely secured by nondependent pneumocephalus. Otherwise, no new large cortical infarct or acute hemorrhage unrelated to operative resection tract. Hemorrhage: No evidence of acute intracranial hemorrhage as discussed Mass Lesion / Mass Effect: Overall similar appearance of mass effect with again approximately 5 to 6 mm of midline shift. Chronic change: Unchanged Parenchyma: Similar appearance of generalized volume loss. The brain parenchyma is otherwise within normal limits for age. Ventricles: Unchanged ventricle size without interval enlargement to suggest new or worsening hydrocephalus. Other: The visualized paranasal sinuses are grossly clear. The skull and visualized extracranial soft tissues are grossly normal. NECK: Soft tissues: The soft tissue planes are maintained throughout. No evidence of a soft tissue mass in the neck or superior mediastinum. No significant lymphadenopathy is seen. Spine: Age-related degenerative changes of the cervical spine without significant central canal stenosis. Minimal retrolisthesis of C4 on C5. Lung apices: The visualized lung apices are clear. CT ARTERIOGRAM: Extracranial Circulation: Aortic Arch: There is a normal branching pattern from the aortic arch. There is no significant stenosis in the proximal brachiocephalic vessels. Carotid Stenosis: Right Common: No significant stenosis. Right Internal Carotid Plaque: Mild plaque formation. Right Internal Carotid Stenosis (% by NASCET Criteria): Less than 30 Left Common: No significant stenosis. Left Internal Carotid Plaque: Mild plaque formation. Left Internal Carotid Stenosis (% by NASCET Criteria): Less than 30 Cervical Vertebral Arteries: Patency: Bilaterally Dominance: Left No abrupt short segment caliber change or internal filling defect on CTA neck to suggest dissection. 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 Otherwise, mild calcification of the bilateral ICA siphon with no large vessel occlusion of the proximal anterior circulation as well as no cut off of the proximal anterior circulation second segments. The left M1 M2 bifurcation is somewhat displaced related to vasogenic edema but does not have severe short segment stenosis or cut off of the proximal second segments. Otherwise, no cut off of the proximal anterior circulation second segments or severe short segment stenosis. Vertebrobasilar Circulation: No large vessel occlusion or significant short segment stenosis. No cut off of the proximal [employer] arteries of the cerebellum. No outpouching to suggest aneurysm. No filling defect of the opacified dural venous sinuses to suggest thrombus. No cutoff of any visualized proximal opacified sup (more content not included)... [facility] CTA HEAD W IVCONon CTA HEAD W IVCON * * *Final Report* * * DATE OF EXAM: Apr 27 2024 5:15AM [facility] 0022 - CTA HEAD W IVCON / PROCEDURE REASON: Focal neuro deficit, new, fixed, or worsening, < 4.5 hours, stroke suspected * * * * Physician Interpretation * * * * EXAMINATION: CTA HEAD W IVCON, CTA NECK W IVCON, CT BRAIN WO IVCON HISTORY: Aphasia TECHNIQUE: Routine CT of the brain without IV contrast. Next, high resolution axial images were obtained through the head, neck and superior mediastinum following bolus administration of intravenous contrast for CT angiography. 3D maximum intensity projection images were created, reviewed and archived . MQ: CTABNPlus_4 Contrast: 100 mL Omnipaque [address] Radiation dose: Integrated Dose-Length Product (DLP) for this visit = 1271 mGy*cm. CT Dose Reduction Employed: Automated exposure control(AEC) and iterative recon COMPARISON: CT head 04/26/2024 4:45 PM RESULT: BRAIN: Acute change: Postoperative changes status post left middle cranial fossa and frontal bone extra-axial mass resection with interval improvement of nondependent pneumocephalus with redemonstration of right frontal pole and anterior temporal vasogenic edema which is at least unchanged to possibly slightly worsened however this could also be somewhat artifactual given improvement of nondependent pneumocephalus. Additionally, scattered areas of blood products/hemorrhage within the operative tract is intervally worsened specifically in the middle cranial fossa where isolated area of hemorrhage within operative resection track now measures 15 x 26 mm, previously this area had only 2 serpiginous areas of hemorrhage which measure approximately 3 mm x 26 mm. Also, postoperative hemorrhage within the resection cavity along the anterior middle cranial fossa has intervally worsened now measuring 2.0 x 2.8 cm, previously 1.0 x 2.7 cm. Also, hemorrhage along the right frontal pole has also intervally worsened now measuring 6 x 10 mm, previously this was largely obscured by postoperative pneumocephalus. Another focus of linear hemorrhage on image 20 series 3 is also more conspicuous however this also is largely secured by nondependent pneumocephalus. Otherwise, no new large cortical infarct or acute hemorrhage unrelated to operative resection tract. Hemorrhage: No evidence of acute intracranial hemorrhage as discussed Mass Lesion / Mass Effect: Overall similar appearance of mass effect with again approximately 5 to 6 mm of midline shift. Chronic change: Unchanged Parenchyma: Similar appearance of generalized volume loss. The brain parenchyma is otherwise within normal limits for age. Ventricles: Unchanged ventricle size without interval enlargement to suggest new or worsening hydrocephalus. Other: The visualized paranasal sinuses are grossly clear. The skull and visualized extracranial soft tissues are grossly normal. NECK: Soft tissues: The soft tissue planes are maintained throughout. No evidence of a soft tissue mass in the neck or superior mediastinum. No significant lymphadenopathy is seen. Spine: Age-related degenerative changes of the cervical spine without significant central canal stenosis. Minimal retrolisthesis of C4 on C5. Lung apices: The visualized lung apices are clear. CT ARTERIOGRAM: Extracranial Circulation: Aortic Arch: There is a normal branching pattern from the aortic arch. There is no significant stenosis in the proximal brachiocephalic vessels. Carotid Stenosis: Right Common: No significant stenosis. Right Internal Carotid Plaque: Mild plaque formation. Right Internal Carotid Stenosis (% by NASCET Criteria): Less than 30 Left Common: No significant stenosis. Left Internal Carotid Plaque: Mild plaque formation. Left Internal Carotid Stenosis (% by NASCET Criteria): Less than 30 Cervical Vertebral Arteries: Patency: Bilaterally Dominance: Left No abrupt short segment caliber change or internal filling defect on CTA neck to suggest dissection. 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 Otherwise, mild calcification of the bilateral ICA siphon with no large vessel occlusion of the proximal anterior circulation as well as no cut off of the proximal anterior circulation second segments. The left M1 M2 bifurcation is somewhat displaced related to vasogenic edema but does not have severe short segment stenosis or cut off of the proximal second segments. Otherwise, no cut off of the proximal anterior circulation second segments or severe short segment stenosis. Vertebrobasilar Circulation: No large vessel occlusion or significant short segment stenosis. No cut off of the proximal DIRECTOR TRADE arteries of the cerebellum. No outpouching to suggest aneurysm. No filling defect of the opacified dural venous sinuses to suggest thrombus. No cutof (more content not included)... [facility] CTA NECK W IVCONon CTA NECK W IVCON * * *Final Report* * * DATE OF EXAM: Apr 27 2024 5:15AM [facility] 0024 - CTA NECK W IVCON / PROCEDURE REASON: Focal neuro deficit, new, fixed, or worsening, < 4.5 hours, stroke suspected * * * * Physician Interpretation * * * * EXAMINATION: CTA HEAD W IVCON, CTA NECK W IVCON, CT BRAIN WO IVCON HISTORY: Aphasia TECHNIQUE: Routine CT of the brain without IV contrast. Next, high resolution axial images were obtained through the head, neck and superior mediastinum following bolus administration of intravenous contrast for CT angiography. 3D maximum intensity projection images were created, reviewed and archived . MQ: CTABNPlus_4 Contrast: 100 mL Omnipaque [address] Radiation dose: Integrated Dose-Length Product (DLP) for this visit = 1271 mGy*cm. CT Dose Reduction Employed: Automated exposure control(AEC) and iterative recon COMPARISON: CT head 04/26/2024 4:45 PM RESULT: BRAIN: Acute change: Postoperative changes status post left middle cranial fossa and frontal bone extra-axial mass resection with interval improvement of nondependent pneumocephalus with redemonstration of right frontal pole and anterior temporal vasogenic edema which is at least unchanged to possibly slightly worsened however this could also be somewhat artifactual given improvement of nondependent pneumocephalus. Additionally, scattered areas of blood products/hemorrhage within the operative tract is intervally worsened specifically in the middle cranial fossa where isolated area of hemorrhage within operative resection track now measures 15 x 26 mm, previously this area had only 2 serpiginous areas of hemorrhage which measure approximately 3 mm x 26 mm. Also, postoperative hemorrhage within the resection cavity along the anterior middle cranial fossa has intervally worsened now measuring 2.0 x 2.8 cm, previously 1.0 x 2.7 cm. Also, hemorrhage along the right frontal pole has also intervally worsened now measuring 6 x 10 mm, previously this was largely obscured by postoperative pneumocephalus. Another focus of linear hemorrhage on image 20 series 3 is also more conspicuous however this also is largely secured by nondependent pneumocephalus. Otherwise, no new large cortical infarct or acute hemorrhage unrelated to operative resection tract. Hemorrhage: No evidence of acute intracranial hemorrhage as discussed Mass Lesion / Mass Effect: Overall similar appearance of mass effect with again approximately 5 to 6 mm of midline shift. Chronic change: Unchanged Parenchyma: Similar appearance of generalized volume loss. The brain parenchyma is otherwise within normal limits for age. Ventricles: Unchanged ventricle size without interval enlargement to suggest new or worsening hydrocephalus. Other: The visualized paranasal sinuses are grossly clear. The skull and visualized extracranial soft tissues are grossly normal. NECK: Soft tissues: The soft tissue planes are maintained throughout. No evidence of a soft tissue mass in the neck or superior mediastinum. No significant lymphadenopathy is seen. Spine: Age-related degenerative changes of the cervical spine without significant central canal stenosis. Minimal retrolisthesis of C4 on C5. Lung apices: The visualized lung apices are clear. CT ARTERIOGRAM: Extracranial Circulation: Aortic Arch: There is a normal branching pattern from the aortic arch. There is no significant stenosis in the proximal brachiocephalic vessels. Carotid Stenosis: Right Common: No significant stenosis. Right Internal Carotid Plaque: Mild plaque formation. Right Internal Carotid Stenosis (% by NASCET Criteria): Less than 30 Left Common: No significant stenosis. Left Internal Carotid Plaque: Mild plaque formation. Left Internal Carotid Stenosis (% by NASCET Criteria): Less than 30 Cervical Vertebral Arteries: Patency: Bilaterally Dominance: Left No abrupt short segment caliber change or internal filling defect on CTA neck to suggest dissection. 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 Otherwise, mild calcification of the bilateral ICA siphon with no large vessel occlusion of the proximal anterior circulation as well as no cut off of the proximal anterior circulation second segments. The left M1 M2 bifurcation is somewhat displaced related to vasogenic edema but does not have severe short segment stenosis or cut off of the proximal second segments. Otherwise, no cut off of the proximal anterior circulation second segments or severe short segment stenosis. Vertebrobasilar Circulation: No large vessel occlusion or significant short segment stenosis. No cut off of the proximal DIRECTOR [employer] arteries of the cerebellum. No outpouching to suggest aneurysm. No filling defect of the opacified dural venous sinuses to suggest thrombus. No cutof (more content not included)... Normal [facility] Magnesium SerPl-mCncon 04-27 Magnesium [Mass/Vol] 1.8 mg/dL Normal 1.7-2.3 [facility] Comment on above: Order Comment: Jr thomas Type: BLOOD SPECIMENOrdering Facility: [facility] Address: [address] [place] [address] Performed By: #### 2 4321-2, 71556-6, 2777-1 ####[facility] LABORATORYCLIA [id number] [place], [place] [id number] [place] [address] OF [facility] PT panel Coag (PPP)on 2023 INR Coag (PPP) [Relative time] 1.0 {INR} Normal 0.9-1.3 [facility] Comment on above: Order Comment: Jr thomas Type: BLOOD SPECIMENOrdering Facility: [facility] Address: [address] [place] [address] Result Comment: Rae min K Antagonist (VKA) Therapeutic Range: INR 2 to 3 (Target INR of 2.5) Note: For patients treated with VKA drugs, such as warfarin, the [place] [employer] 2012 Guideline recommends a therapeutic INR range of 2 to 3 (target INR of 2.5). This recommendation includes high-risk patients with antiphospholipid syndrome with previous arterial or venous thromboembolism, current-generation mechanical or bioprosthetic aortic heart valve replacement. Note: Patients with mechanical aortic valve replacement and additional risk factors for thromboembolic events (atrial fibrillation, previous thromboembolism, LV dysfunction, hypercoagulable conditions) or an older generation mechanical AVR (i.e., ball in-Cage) or any mechanical MVR should have a INR therapeutic range of 2.5 to 3.5 (target INR of 3). Carlos GH, et al. Chest 2012, 141:7S-[address]S [address] RA, et al. JACC 2017, 70: 252-289 Performed By: #### 1 4979-9, 82382-6 ####[facility] LABORATORYCLIA [id number] [place] [address] [place] PT Coag (PPP) [Time] 10.9 s Normal 9.7-13.0 [facility] Comment on above: Order Comment: Speci men Type: BLOOD SPECIMENOrdering Facility: [facility] Address: [address] [place] [address] Performed By: #### 1 4979-9, 76219-6 ####[facility]ITALCLIA [id number] [address] OF [facility] Phosphate SerPl-mCncon 04-27 Phosphate [Mass/Vol] 3.3 mg/dL Normal 2.7-4.8 [facility] Comment on above: Order Comment: Speci men Type: BLOOD SPECIMENOrdering Facility: [facility] Address: [address] [place] [address] Performed By: #### 2 4321-2, 39632-6, 2777-1 ####[facility]PITALCLIA [id number] [address] STATES OF [facility] STAPHYLOCOCCUS AUREUS AND MR SA SCREEN, PCR, NASALon 04-27-2024 S. aureus and MRSA panel KAHLIL+probe (Nose) Not detected Normal Not Detected [facility] Comment on above: Order Comment: Speci men Type: SWABOrdering Facility: [facility] Address: [address] [place] [address] Performed By: #### S APCR ####[facility] LABORATORYCLIA [id number] [place] [address] [place] aPTT PPPon 04-27-2024 aPTT Coag (PPP) [Time] 26.1 s Normal 23.0-32.4 [facility] Comment on above: Order Comment: Speci men Type: BLOOD SPECIMENOrdering Facility: [facility] Address: [address] [place] [address] Performed By: #### 1 4979-9, 04698-7 ####[facility] LABORATORYCLIA [id number] [address] ALLIED HEALTHon 04-26-2024 ALLIED HEALTH HNO ID: [id number] Author: KEVIN ALVARADO Chaplain Service: Spiritual Care Author Type: Accordion Maker Type: Allied Health Filed: 04/26/2024 06:54 Note Text: SPIRITUAL CARE PROGRESS NOTE SERVICE DATE: 04/26/2024 SERVICE TIME: 6:47 AM As a systems program manager I responded to a page for pre surgery prayer. PT's two sons were at the bedside. PT indicated a Yazidism marito. Prayed. To contact the Spiritual Care Department: Please call [phone]. SIGNATURE: Chaplain Catalina PATIENT NAME: Reshma Evans DATE: April 26, 2024 TIME: 6:52 AM PAGER/CONTACT #: [phone] [facility] ALLIED HEALTH HNO ID: [id number] Author: TERE BRAVO RT(R) Service: Radiology Author Type: Anode Crew Supervisor Type: Allied Health Filed: 04/26/2024 07:52 Note Text: Radiology Service Progress Note PATIENT NAME: Reshma Evans DATE OF SERVICE: April 26, 2024 TIME: 7:52 AM PATIENT IDENTITY VERIFICATION COMPLETED USING TWO (2) IDENTIFIERS: Name and Date of confirmed by patient verbally and Name and Date of confirmed by identification band. FALL SCREENING: Has the patient had 2 falls in the last year or 1 fall with injury or currently using an Ambulatory Assistive Device (Walker, Cane, Wheelchair, Crutches, etc.)? Inpatient: Screened on floor PATIENT GENDER DATA: Female. status: : No status: NO. PATIENT RELEVANT IMPLANT DATA REVIEWED: Not Applicable PATIENT PRESENTS WITH AN IMPLANTABLE OR ATTACHED ASSISTED LIVING COORDINATOR: No RADIOLOGY DEPARTMENT: CT; Exam(s) Completed: Brain PERIPHERAL IV DATA: Not applicable SIGNED BY: RT Jazz(R) April 26, 2024 7:52 AM [facility] ANES POSTPROC EVALon 024 ANES POSTPROC EVAL HNO ID: [id number] Author: JULIANNE GLEASON MD Service: Anesthesiology Author Type: Anesthesiologist Type: Anesthesia Postprocedure Evaluation Filed: 04/30/2024 09:31 Note Text: POST ANESTHESIA EVALUATION NOTE : 1940 Procedure Summary Date: 04/26/24 [place] Anesthesia Start: 818 Anesthesia Stop: 150 Procedures: CRANIOTOMY FOR EXCISION SUPRATENTORIAL MENINGIOMA (Left: Brain) MICROSURGICAL TECHNIQUE FOR CRANIOTOMY PROCEDURES (Left: Brain) BRAINLAB STEREOTACTIC COMPUTER-ASSISTED NAVIGATIONAL PROCEDURE CRANIAL (Left: Brain) Diagnosis: Benign meningioma (HCC) (Benign meningioma (HCC) [D32.9]) Surgeons: Neymar Jeronimo MD Responsible Provider: Julianne Gleason MD Anesthesia Type: general ASA Status: 3 Anesthesia Type: general Airway Type: ETT Last Vitals Vitals Value Taken Time BP 163/74 04/30/24 0758 Temp 36.5 ?C (97.7 ?F) 04/30/24 0758 HR SpO2 57 04/29/24 1321 Resp 17 04/30/24 0758 SpO2 95 % 04/30/24 0758 Vitals shown include unfiled device data. Post Anesthesia Patient Status Anticipated Disposition: ICU planned admission. Neurological Status: sleepy but arousable. Pulmonary Status: breathing comfortably on supplemental oxygen Airway Control: returned to baseline unsupported. Cardiovascular Status: stable. Pain Management: clinically adequate Postoperative Hydration: acceptable. Intraoperative Events: no significant anesthesia events Post Operative Nausea/Vomiting Status: no significant post operative nausea or vomiting Recommendation: further care per PACU/ICU/floor team. Anesthesia Observations No Documentation SIGNATURE: Julianne Gleason MD PATIENT NAME: Reshma Evans DATE: April 30, 2024 TIME: 9:30 AM CSN: [id number] [facility] ANES PRE-OPon 04-26-2024 ANES PRE-OP HNO ID: [id number] Author: JULIANNE GLEASON MD Service: Anesthesiology Author Type: Anesthesiologist Type: Anesthesia Preprocedure Evaluation Filed: 04/26/2024 07:49 Note Text: ANESTHESIOLOGY DAY OF SURGERY NOTE : 1940 Procedure Information Date/Time: 04/26/24 0800 Procedures: CRANIOTOMY FOR EXCISION SUPRATENTORIAL MENINGIOMA (Left: Brain) MICROSURGICAL TECHNIQUE FOR CRANIOTOMY PROCEDURES (Left: Brain) BRAINLAB STEREOTACTIC COMPUTER-ASSISTED NAVIGATIONAL PROCEDURE CRANIAL (Left: Brain) Location: [place] Surgeons: Neymar Jeronimo MD Estimated body mass index is 28.25 kg/m? as calculated from the following: Height as of 04/18/24: 167.6 cm (5' 6). Weight as of 04/18/24: 79.4 kg (175 lb). Most recent hematocrit and potassium results: Hematocrit 40.9 04/18/2024 Potassium 5.2 04/18/2024 Relevant Problems ANESTHESIA (+) KIMBERLY (obstructive sleep apnea) CARDIO (+) HTN (hypertension) ENDO (+) Type 2 diabetes mellitus without complication, without long-term current use of insulin (HCC) PULMONARY (+) KIMBERLY (obstructive sleep apnea) Oncology (+) Benign meningioma (HCC) (+) Meningioma (HCC) -HTN on HCTZ and lisinopril - took both yesterday - took propanolol this AM - Hgb 13.1, has active TANDS - K 5.2 on 04/18, no prior elevated values, will repeat today - DM - KIMBERLY - L sphenoid wing meningioma I - PHYSICAL EVALUATION AIRWAY Patient intubated: No. Tracheostomy tube not present Mallampati: III. TM distance: >3 FB. Neck ROM: full ROM without neurological symptoms. Mouth opening: adequate. Short neck: no. Thick neck: no II - ANESTHESIA PLAN ASA Score: 3 Anesthetic Plan: general Airway type: ETT The patient is not a current smoker. NPO Status: adequate Beta Zully Monitoring Plan Monitoring plan: standard ASA and invasive hemodynamic monitoring. Monitoring method: arterial Line Post Procedure Analgesic Plan Postoperative analgesic plan: parenteral or oral opioids and multimodal analgesia. Informed Consent Anesthetic risks, benefits, alternatives, personnel and consent discussed: yes. Patient / Responsible Alliance Party agrees to proceed: yes Patient / Surrogate agrees to blood products: blood products not planned Potential Anesthesia issues that may suggest increased risk of complications or contraindication to planned procedure: none. Vitals Value Taken Time BP 136/68 04/26/24 0643 Pulse 100 04/26/24 0640 Resp 16 04/26/24 0640 Temp 36.9 ?C (98.4 ?F) 04/26/24 0640 SpO2 100 % 04/26/24 0640 Vitals shown include unfiled device data. Facility-Administered Medications as of 04/26/2024 Medication Dose Route Frequency lidocaine 10 mg/mL (1 %) 1-2 mg injection (XYLOCAINE) 1-2 mg INTRADERMAL ONCE lidocaine (PF) 10 mg/mL (1 %) 1-2 mg injection (XYLOCAINE) 0.1-0.2 mL INTRADERMAL PRN NaCl 0.9% iv flush bag 20 mL INTRAVENOUS PRN ceFAZolin iv piggyback 2 g in D5W (iso-osmotic) 100 mL (ANCEF) 2 g INTRAVENOUS Pre-Op Once Outpatient Medications as of 04/26/2024 Medication Sig nystatin (MYCOSTATIN) powder fluorometholone (FML LIQUID FILM) 0.1 % ophthalmic suspension Use 1 Drop in the left eye two times a day. vitamin E, dl,tocopheryl acet, (VITAMIN E, DL, ACETATE,) 180 mg (400 unit) capsule Take 180 mg by mouth. multivitamin/iron/folic acid (CENTRUM ORAL) Take by mouth. hydroCHLOROthiazide 12.5 mg tablet Take 12.5 mg by mouth once daily. gabapentin (NEURONTIN) 100 mg capsule Take 100 mg by mouth two times a day. lisinopril (ZESTRIL) 10 mg tablet Take 10 mg by mouth once daily. propranolol (INDERAL) 20 mg tablet Take 20 mg by mouth two times a day. Cunningham-3 Fatty Acids-Vitamin E (FISH OIL) 1,000 mg cap Take 1 capsule by mouth. simvastatin (ZOCOR) 40 mg tablet Take by mouth. Cholecalciferol, Vitamin D3, (VITAMIN D) 1,000 unit ORAL Cap Take one(1) tablet daily. ascorbic acid (VITAMIN C) 500 mg ORAL tablet Take one(1) tablet daily. CALCIUM/MAG OXIDE/VITAMIN D3 (CORAL CALCIUM PLUS ORAL) pt not sure of dosage takes 1 daily I have interviewed and examined the patient. I have reviewed the medical record and/or the pre-anesthesia evaluation, pertinent labs, and test results. This contains updated information obtained within 48 hours of Surgery/Procedure. SIGNATURE: Julianne Gleason MD PATIENT NAME: Reshma Evans DATE: April 26, 2024 TIME: 7:30 AM CSN: [id number] [facility] BRIEF OP NOTon 04-26-2024 BRIEF OP NOT HNO ID: [id number] Author: NEYMAR JERONIMO MD Service: Neurosurgery Author Type: Physician Type: Brief Op Note Filed: 04/26/2024 14:51 Note Text: BRIEF OPERATIVE / PROCEDURE NOTE LOG ID: [id number] SURGERY/PROCEDURE DATE: 04/26/2024 INCISION/PROCEDURE START TIME: 9:20 AM INCISION CLOSE/PROCEDURE END TIME: 2:38 PM SURGEON(S)/PROCEDURALIS T(S) AND CHIP MIXER(S): Surgeons and Role: * Neymar Jeronimo MD - Primary Human Resources Trainer: Keaton Shaw SA; Robert Sena SA SURGERY/PROCEDURE(S): Left pterional craniotomy for resection of sphenoid wing meningioma Decompression of the optic canal and lateral orbit ANESTHESIA: General FINDINGS: large vascular lesion with extensive bone involvement ESTIMATED BLOOD LOSS: 500 mls SPECIMENS: for frozen and permanent COMPLICATIONS: None CLOSURE TECHNIQUE: Primary PRE-OP/PRE-PROCEDURE DIAGNOSIS: meningioma POST-OP/POST-PROCEDURE DIAGNOSIS: Same as Preop Patient was accompanied to the next level of care by a licensed practitioner from the surgical team pending completion of this brief op note (or operative note) SIGNATURE: Neymar Jeronimo MD PATIENT NAME: Reshma Evans DATE: April 26, 2024 TIME: 2:50 PM [facility] CT BRAIN WO IVCONon 04-26-[address] BRAIN WO IVCON * * *Final Report* * * DATE OF EXAM: Apr 26 2024 4:49PM [facility] 0[facility] - CT BRAIN WO IVCON / PROCEDURE REASON: Post-operative / post-procedure assessment, asymptomatic * * * * Physician Interpretation * * * * EXAMINATION: CT BRAIN WO IVCON CLINICAL HISTORY: Postoperative assessment. TECHNIQUE: Serial axial images without IV contrast were obtained from the vertex to the foramen magnum. MQ: CTBWO_3 CT Radiation dose: Integrated Dose-Length Product (DLP) for this visit = 808 mGy*cm CT Dose Reduction Employed: Automated exposure control(AEC) and iterative recon COMPARISON: CT dated 04/26/2024 at 7:50 AM RESULT: Localizer images: No additional findings. Post-operative change: Left frontal craniotomy redemonstrated. Interval LEFT pterional craniotomy, resection of LEFT greater than RIGHT sphenoid meningioma. Expected postoperative changes with significant pneumocephalus along the LEFT frontal and temporal convexity. Small volume extra-axial hemorrhage along the LEFT frontal and temporal lobes. Mass effect and midline shift towards RIGHT by 6 mm in interval. Acute change: No evidence of an acute infarct or other acute parenchymal process. Hemorrhage: No evidence of acute intracranial hemorrhage. ECASS hemorrhagic transformation score: Not Applicable Mass Lesion / Mass Effect: Vasogenic edema in the LEFT temporal lobe redemonstrated, unchanged. Chronic change: Scattered patchy foci of low attenuation are present within supratentorial white matter which is a nonspecific finding but likely represents mild microvascular ischemia. Parenchyma: There is mild generalized volume loss. The brain parenchyma is otherwise within normal limits for age. Ventricles: The ventricles are within normal limits of size and configuration for age. Paranasal sinuses and skull base: The visualized paranasal sinuses are grossly clear. Soft tissue swelling along the LEFT frontal and temporal scalp. Soft tissue IMPRESSION: Expected postoperative changes post LEFT temporal craniotomy and resection of the middle cranial fossa meningioma. Significant pneumocephalus and small volume extra-axial hemorrhage along the craniotomy with mass effect and midline shift of 5 to 6 mm towards LEFT. Recommend close CT follow-up imaging. Evaluation for residual tumor limited on this CT study. Recommend attention on follow-up MRI. COMMUNICATION: Communicated with Dr. Jeronimo on 04/26/2024 5:14 PM via verbal communication. Inspector Material Disposition: TRAVIS Transcribe Date/Time: Apr 26 2024 4:51P Dictated by : KADEEM CARBAJAL MD This examination was interpreted and the report reviewed and electronically signed by: KADEEM CARBAJAL MD on Apr 26 2024 5:14PM EST [id number] [facility] CT BRAIN WO IVCON * * *Final Report* * * DATE OF EXAM: Apr 26 2024 7:53AM [facility] 0504 - CT BRAIN WO IVCON / PROCEDURE REASON: Meningioma * * * * Physician Interpretation * * * * EXAMINATION: CT BRAIN WO IVCON CLINICAL HISTORY: Meningioma TECHNIQUE: Spiral axial images without IV contrast were obtained from the vertex to the foramen magnum. MQ: CTBWO_3 CT Radiation dose: Integrated Dose-Length Product (DLP) for this visit = 997 mGy*cm CT Dose Reduction Employed: Automated exposure control(AEC) and iterative recon COMPARISON: Outside MR brain 02/07/2024 RESULT: Localizer images: No additional findings. Post-operative change: None. Acute change: No evidence of an acute infarct or other acute parenchymal process. Hemorrhage: No evidence of acute intracranial hemorrhage. ECASS hemorrhagic transformation score: Not Applicable Mass Lesion / Mass Effect: There is a 2.3 x 2.4 cm isodense mass in the left middle cranial fossa, corresponding to the known tumor. There is vasogenic edema in the adjacent temporal lobe. No midline shift. Chronic change: There is old left frontal craniotomy. There is left anterior frontal encephalomalacia. Parenchyma: There is mild generalized volume loss. The brain parenchyma is otherwise within normal limits for age. Ventricles: Ventricular enlargement concordant with the degree of parenchymal volume loss. Paranasal sinuses and skull base: The visualized paranasal sinuses are grossly clear. The skull base and imaged soft tissues are unremarkable. IMPRESSION: Stereotactic CT brain for surgical planning. Redemonstration of left middle cranial fossa tumor. Inspector Material Disposition: PSCB Transcribe Date/Time: Apr 26 2024 8:00A Dictated by : LORI JUAREZ MD This examination was interpreted and the report reviewed and electronically signed by: LORI JUAREZ MD on Apr 26 2024 8:04AM EST [id number] [facility] HISTORY PHYSICALon HISTORY PHYSICAL HNO ID: [id number] Author: KAYODE RAINEY APRN.OUTDOOR ADVENTURE INSTRUCTOR Service: Neurology ICU Author Type: Nurse Practitioner Type: H&P Filed: 04/26/2024 16:46 Note Text: SERVICE DATE: 04/26/2024 SERVICE TIME: 4:23 PM NEUROLOGICAL INTENSIVE CARE UNIT HISTORY AND PHYSICAL REASON FOR ADMISSION: meningioma resection Subjective HPI: 83yo female with PMHx significant for HTN, DM, KIMBERLY and L sphenoid wing meningioma. Pt presented for craniotomy for resection of meningioma by Dr Jeronimo. Pt admitted to NSICU post-op with NSICU consult for medical management. PAST MEDICAL HISTORY Diagnosis Date Benign meningioma (HCC) BPPV (benign paroxysmal positional vertigo) Diabetes (HCC) HTN (hypertension) 02/14/2024 Hyperlipidemia 02/14/2024 Obesity PONV (postoperative nausea and vomiting) SDH (subdural hematoma) (HCC) 02/13/2024 Sleep apnea PAST SURGICAL HISTORY Procedure Laterality Date ARTHRP KNE CONDYLEANDPLATU MEDIALANDLAT COMPARTMENTS 07/10/1979 right PAST SURGICAL HISTORY OF Bilateral total knees RECONSTRUCT CLEFT PALATE Infancy RECONSTRUCTION ROTATOR CUFF AVULSION CHRONIC 07/10/2007 right REPAIR CLEFT LIP Infancy REVISE MEDIAN N/CARPAL TUNNEL SURG FAMILY HISTORY Problem Relation Age of Onset other (leukemia [Other]) Sister 49 other (esophageal cancer [Other]) Brother 62 ALLERGIES No Known Allergies PRIOR TO ADMISSION MEDICATIONS: nitrofurantoin monohydrate and macrocrystal (MACROBID) 100 mg capsule, Take 1 capsule by mouth two times a day for 5 days., Disp: 10 capsule, Rfl: 0, 04/26/2024 at 0445 nystatin (MYCOSTATIN) powder, , Disp: , Rfl: , 04/25/2024 fluorometholone (FML LIQUID FILM) 0.1 % ophthalmic suspension, Use 1 Drop in the left eye two times a day., Disp: , Rfl: , 04/25/2024 vitamin E, dl,tocopheryl acet, (VITAMIN E, DL, ACETATE,) 180 mg (400 unit) capsule, Take 180 mg by mouth., Disp: , Rfl: , Past Week multivitamin/iron/folic acid (CENTRUM ORAL), Take by mouth., Disp: , Rfl: , Past Week hydroCHLOROthiazide 12.5 mg tablet, Take 12.5 mg by mouth once daily., Disp: , Rfl: , 04/25/2024 gabapentin (NEURONTIN) 100 mg capsule, Take 100 mg by mouth two times a day., Disp: , Rfl: , 04/25/2024 lisinopril (ZESTRIL) 10 mg tablet, Take 10 mg by mouth once daily., Disp: , Rfl: , 04/25/2024 propranolol (INDERAL) 20 mg tablet, Take 20 mg by mouth two times a day., Disp: , Rfl: , 04/26/2024 at 0445 Cunningham-3 Fatty Acids-Vitamin E (FISH OIL) 1,000 mg cap, Take 1 capsule by mouth., Disp: , Rfl: , 04/25/2024 simvastatin (ZOCOR) 40 mg tablet, Take by mouth., Disp: , Rfl: , 04/25/2024 Cholecalciferol, Vitamin D3, (VITAMIN D) 1,000 unit ORAL Cap, Take one(1) tablet daily., Disp: , Rfl: , Past Week ascorbic acid (VITAMIN C) 500 mg ORAL tablet, Take one(1) tablet daily., Disp: , Rfl: , Past Week CALCIUM/MAG OXIDE/VITAMIN D3 (CORAL CALCIUM PLUS ORAL), pt not sure of dosage takes 1 daily, Disp: , Rfl: , 04/26/2024 at 0445 Social History Tobacco Use Smoking status: Never Smokeless tobacco: Never Vaping Use Vaping status: Never Used Substance Use Topics Alcohol use: Not Currently Comment: occasional/social Drug use: No 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 Objective Vital Signs (Last 24hrs min/max): BP 128/78 Pulse 62 Temp 36.4 ?C (97.5 ?F) Resp 13 SpO2 100% PHYSICAL EXAM: NEUROLOGICAL: GCS: Eyes: 3: To Speech Verbal: 5: Oriented Motor: 6: Obeys Motor commands Total: 14 Pt lethargic post op, wakes to verbal stim but remains drowsy Minimal speech, denies pain PERRL +tracking +BTT No facial asym MAEx4 limited strength testing, follows some simple commands CV: RRR Pulm: CTAB even unlabored GI/: abd soft NT/ND +BS Skin/Extremities: Edema- No Peripheral pulses- Present all extremities Wounds/Drsgs- Yes Breakdown- No DATA: Diagnostic tests reviewed for today's visit: Most recent labs and imaging results. Lines, Drains, and Airways Line Duration Arterial Line/Sheath 04/26/24 0833 Right Radial <1 day Peripheral 04/26/24 0655 Right Hand 20 Gauge <1 day Peripheral 04/26/24 0830 Left Forearm 18 Gauge <1 day Drain Duration Indwelling Urinary Catheter 04/26/24 0835 [facility] Armendariz 16 Fr <1 day PERSONAL INVOLVEMENT IN CARE: Reviewing initiation, responses and adjustments to therapies, coordination of care, and updating family with Staff Physician, Dr. Hall. Assessment AND Plan 83yo female with PMHx significant for HTN, DM, KIMBERLY and L sphenoid wing meningioma. Pt presented for craniotomy for resection of meningioma by Dr Jeronimo. Active Hospital Problems as of 04/26/2024 Noted - Resolved [facility] Hospital HTN (hypertension) 02/14/2024 - Present Yes Current Assessment AND Plan - (more content not included)... [facility] HISTORY PHYSICAL HNO ID: [id number] Author: NEYMAR JERONIMO MD Service: Neurosurgery Author Type: Physician Type: H&P Filed: 04/26/2024 08:33 Note Text: UPDATED HISTORY AND PHYSICAL EXAMINATION SERVICE DATE: 04/26/2024 SERVICE TIME: 8:00 am PHYSICAL EXAM MUST BE COMPLETED ON ADMISSION The History and Physical (completed in the past 30 days) has been reviewed and the patient has been examined. The contents accurately reflect the patient's condition with the following additions or revisions since the HANDP was completed. Examination indicates no changes. This HANDP can be found in the Electronic Medical Record dated 04/18. Patient is seen in preoperative area with two sons. No new issues/symptoms. All questions of the family answered. Will proceed with left pterional craniotomy for resection of meningioma and optic canal decompression, as scheduled. Patient marked. SIGNATURE: Neymar Jeronimo MD PATIENT NAME: Reshma Evans DATE: April 26, 2024 TIME: 8:32 AM [facility] MRI BRAIN WO/W IVCONon 04-26 MRI BRAIN WO/W IVCON * * *Final Report* * * DATE OF EXAM: Apr 26 2024 8:28AM [facility] 0295 - MRI BRAIN WO/W IVCON / PROCEDURE REASON: Intracranial meningioma (HCC) * * * * Physician Interpretation * * * * EXAMINATION: MRI BRAIN WO/W IVCON CLINICAL HISTORY: Intracranial meningioma (HCC) TECHNIQUE: Volumetric T1 pre and postcontrast, T2 and FLAIR sequences of the brain for surgical planning MQ: [id number]_2 Contrast: 15 mL Dotarem IV COMPARISON: MR brain 04/04/2024 RESULT: Left anterior frontal craniotomy related to meningioma resection are again seen. Left anterior frontal encephalomalacia. Again noted is residual mass over the left anterior frontal convexity and in the left middle cranial fossa. The largest portion is in the left middle cranial fossa measuring approximately 3 x 2.2 cm (5: 121), stable. There is stable involvement of the left sphenoid bone greater wing. The mass is again noted to extend to the superolateral left orbit intraconal space measuring up to 5 mm in thickness. The mass is again noted to extend to the left temporal region. Medially, the mass extends to the left anterior clinoid. There is vasogenic edema in the left frontal and temporal lobes. A second enhancing lesion is noted abutting the right anterior clinoid measuring 1.1 x 1.2 cm on 5:130. IMPRESSION: Stereotactic MRI brain for surgical planning. Inspector Material Disposition: PSCB Transcribe Date/Time: May 01 2024 10:05A Dictated by : LORI JUAREZ MD This examination was interpreted and the report reviewed and electronically signed by: LORI JUAREZ MD on May 01 2024 10:17AM EST [id number] [facility] NURSING PROGon 04-26-2024 NURSING PROG HNO ID: [id number] Author: KEATON GUERRA, ZOHREH Service: Nursing Author Type: Registered Nurse Type: Nursing Progress Note Filed: 04/26/2024 21:05 Note Text: Other: patient able to follow commands and identify fingers on Left eye. Pt still very drowsy and disoriented but is improving. Oriented to self, family members and event. Will continue to monitor [facility] NURSING PROG HNO ID: [id number] Author: MARINA MCKEON RN Service: ? Author Type: Registered Nurse Type: Nursing Progress Note Filed: 04/26/2024 17:06 Note Text: Other: Attempted to do neuro peripheral vision assessment but patient too drowsy. CT head was done at 1645 [facility] NURSING PROG HNO ID: [id number] Author: MARINA MCKEON RN Service: ? Author Type: Registered Nurse Type: Nursing Progress Note Filed: 04/26/2024 15:40 Note Text: Other: At 1520 patient was hypotensive map (58), not responding to noxious stimuli and orange fluid pooled in patient's left ear. We contacted Dr. S. Baaj, she came to bedside and ordered IV phenylephrine for hypotensive. We paged Neurosurgery and TECHNICAL SALES ADVISOR Eladia came to bedside. The orange fluid pooled in patient's ear was betadine from cleaning off patients head. The patient was responsive to Eladia's commands, moving her upper and lower extremities. [facility] OPERATIVE NOon 04-26-2024 OPERATIVE NO HNO ID: [id number] Author: NEYMAR JERONIMO MD Service: Neurosurgery Author Type: Physician Type: Operative Report Filed: 05/14/2024 09:43 Note Text: OPERATIVE/PROCEDURE REPORT LOG ID: [id number] SURGERY/PROCEDURE DATE: 04/26/2024 INCISION/PROCEDURE START TIME: 9:20 AM INCISION CLOSE/PROCEDURE END TIME: 2:38 PM SURGEON(S)/PROCEDURALIS T(S) AND CHIP MIXER(S): Surgeons and Role: * Neymar Jeronimo MD - Primary Human Resources Trainer: Keaton Shaw SA; Robert Sena SA SURGERY/PROCEDURE(S): Left pterional craniotomy for resection of left sphenoid wing meningioma Decompression of left optic canal Intraoperative neuironavigation Microscope use ANESTHESIA: General FINDINGS: Extensively infiltrating into the bone meningioma involving the lateral orbit and the squamous part of the temporal bone, extremely vascular. Complete resection of intradural portion of the tumor with coagulation of dural attachment. Preliminary pathology - meningioma. Decompression of the lateral orbit and optic canal. The optic nerve was fully decompressed superiorly at the end of the decompression. CLINICAL NOTE: In summary, Reshma Evans is a 83 year old female with hx of prior left frontal meningioma resection presenting with left eye exophthalmus and decline of vision in left eye with subsequent imaging work-up revealing recurrent left sphenoid wing meningioma with extensive intraosseous component that was narrowing the optic canal resulting in optic nerve compression. Given these imaging findings and symptomatic presentation, surgical resection was offered to the patient and she elected to proceed with surgery for resection. SURGERY/PROCEDURE DETAILS: The patient was brought into the pre-operative area and surgical huddle was conducted. Patient's name, date of , and the medical record number were identified. The site of the operation was confirmed by the team. The patient was then brought into the operating room and transferred onto the operating table. General anesthesia was then induced, and the appropriate lines were placed. The patient was positioned supine with the head turned. The head was fixed in the 3 point fixation Corrales clamp. Surface registration was then acquired and registered with the frameless, stereotactic navigation system. The preoperatively planned surgical trajectory was then mapped onto the patients scalp. A linear incision was then fashioned to allow optimal site of craniotomy and connected with the prior incision. The area of the incision was minimally clipped then prepped and draped in the usual fashion. The incision was infiltrated with local anesthetic 1% lidocaine with epinephrine. The skin was then cut sharply using #10 scalpel blade and the coagulation was achieved using monopolar and bipolar electrocautery. Intraoperative image guidance was then used to optimize the size and the site of the craniotomy. Devon holes were placed, and the craniotomy was completed using craniotome equipped with a footplate. The bone was abnormal and very vascular suggesting extensive infiltration with meningoma. The bone flap was elevated and dura was opened in a circumferential fashion. The preexisting craniotomy site was visualized, all plates left in place as no revision was required. The tumor was visualized within the middle fossa. This was quite vascular, and initially, the tumor was disconnected from the dural supply as much as possible. This was then debulked internally, and the external capsule followed circumferentially. There was no good arachnoid plane around the tumor. Samples were sent for frozen and permanent pathology, and that came back consistent with meningioma. All visible tumor was resected, and dural attachment was coagulated extensively. We then visualized intracranially the optic nerve. The intracranial component of the tumor was not invading the optic canal. We then turned our attention to the bony part of optic canal. The sphenoid ridge was extensively drilled down. Part of the lateral and superior orbit was removed to expose orbital contents. Microscope was then brought in. The superior wall of the optic canal was carefully drilled using irrigating 4 mm sacha drill until all superior wall of the optic canal was removed. The optic nerve visualized and fully decompressed. Several pieces of gelfoam and a piece of Duragen placed over the optic nerve and a small defect in the dura. We then inspected the intracranial resection cavity and ensured hemostasis, lined the cavity with Surgicel. Dura was then closed primarily with 4-0 Neurolon sutures. A large piece of Duragen was then placed over the defect and secured with duraseal, the bone was replaced using cranioplasty plates (GAURAV Julian). The temporalis muscle and galea were closed using 2-0 Vicryl. The skin was closed using 4-0 Nylon. The patient's head was taken out of pins, and a strip (more content not included)... [facility] SURGICAL PATHOLOGYon 024 CASE REPORT [facility] Comment on above: Order Comment: Speci men Type: TISSUE SPECIMEN Ordering Facility: [facility] Address: [address] [place] [address] Result Comment: Surg ica Pathology Report Case: [id number] Authorizing Provider: Neymar Jeronimo MD Collected: 04/26/2024 11:13 AM Ordering Location: [facility] Received: 04/26/2024 11:23 AM Pathologist: Jose De Jesus Zepeda MD Intraop: Angelia Berry MD Specimens: A) - Brain, Biopsy, left sided brain lesion B) - Brain, Biopsy, left intradural tumor Performed By: #### S #### [facility] CLIA [id number] [address] CLINICAL HISTORY [facility] Comment on above: Order Comment: Speci martha Type: TISSUE SPECIMEN Ordering Facility: [facility] Address: [address] [place] [address] Result Comment: Pre- op diagnosis: Benign meningioma (HCC) [D32.9] Performed By: #### S #### [facility] CLIA [id number] [address] DIAGNOSIS COMMENT [facility] Comment on above: Order Comment: Speci men Type: TISSUE SPECIMEN Ordering Facility: [facility] Address: [address] [place] [address] Result Comment: Ther e are no atypical features identified. An immunohistochemical stain for Ki-67 reveals a staining index of approximately 5%. Methods Analyst slides were reviewed by Dr. Navin Santoro who agrees with this assessment. Laboratory Developed Test (LDT) Disclaimer: Performance characteristics of immunohistochemical, immunofluorescent and chromogenic in-situ hybridization tests have been determined by the performing laboratory within [facility]???s [place] [facility]ology and Laboratory Medicine Department ([facility], [facility], [facility], [facility], [facility], [facility], or [facility]) in a manner consistent with CLIA requirements. One or more of these tests have not been cleared or approved by the FDA. [facility] is regulated under CLIA as qualified to perform high-complexity testing. These tests are used for clinical purposes. They should not be regarded as investigational or for research. Positive and negative controls stain appropriately. Performed By: #### S #### [facility] CLIA [id number] [address] FINAL DIAGNOSIS Normal [facility] Comment on above: Order Comment: Speci men Type: TISSUE SPECIMEN Ordering Facility: [facility] Address: [address] [place] [address] Result Comment: A. L eft sided brain tumor, biopsy: - Meningioma. B. Left intradural brain tumor, biopsy: - Meningioma, meningothelial type, WHO Grade 1. See comment. Performed By: #### S #### [facility] CLIA [id number] [address] FINAL PERFORMING LAB Normal [facility] Comment on above: Order Comment: Jr thomas Type: TISSUE SPECIMEN Ordering Facility: [facility] Address: [address] [place] [address] Result Comment: Diag nostic interpretation performed at [facility], [address] [place] [address] CLIA# [id number] Customer Care Professional: Jose De Jesus Zepeda M.D. Performed By: #### S #### [facility] CLIA [id number] [address] [place] [address] GROSS DESCRIPTION [facility] Comment on above: Order Comment: Jr thomas Type: TISSUE SPECIMEN Ordering Facility: [facility] Address: [address] [place] [address] Result Comment: Rafaela rodriguez, Biopsy Received fresh for frozen section diagnosis labeled left sided brain lesion are multiple red-brown hemorrhagic appearing soft segments of tissue aggregating to 1.2 x 1.0 x 0.5 cm. A touch prep is performed. One half of the specimens are submitted for frozen section permanent. The tissue is totally submitted as follows: FSA 1 veterans service representative sections A2 remaining tissue totally submitted Gross examination performed at [facility], [address] [place] [address] KVB April 26, 2024 11:45 AM B. Brain, Biopsy Received in formalin labeled left intradural tumor is a red-gonzalez rubbery appearing segment of tissue measuring 4.1 x 2.7 x 1.7 cm. The specimen is serially sectioned to reveal a red-brown hemorrhagic appearing cut surface with gonzalez areas veterans service representative sections are submitted in formalin in 4 cassettes. Gross examination performed at [facility], [address] [place] [address] KVB April 29, 2024 10:57 AM Performed By: #### S #### [facility] CLIA [id number] [address] [place] [address] INTRAOPERATIVE DIAGNOSIS [facility] Comment on above: Order Comment: Speci men Type: TISSUE SPECIMEN Ordering Facility: [facility] Address: [address] [place] [address] Result Comment: A. B rain, Biopsy FSA 1-touch prep, left sided brain lesion-compatible with meningioma. No atypical features. Dr. Berry. Dr. Vegas. Intraoperative examination performed at [facility], [address] [place] [address] CLIA# [id number] Performed By: #### S #### [facility] CLIA [id number] [address] [place] [address] Della 04-25-2024 NELLYN Telephone ([facility]) RESHMA EVANS ([id number]) 1940 F Date Time Provider Department 04/25/24 NEYMAR JERONIMO [facility] During your visit today, we recorded the following information about you: Kael Marvin 04/25/2024 10:59 AM Signed Contacted patient to remind them of their arrival time for surgery with Dr. Neymar Jeronimo on 04/26/24. Patient is to arrive at [facility] at 6:00am for surgery at 8:00am. Spoke with patient and they are aware of all arrival information. Karli Cox RN 04/25/2024 11:07 AM Signed Spoke with patient, let her know she can take antibiotic tomorrow morning with a sip of water. Reminded her 6 am arrival for surgery. She was very thankful. Karli Cox RN Allergies As of Date: 04/25/2024 (No Known Allergies) Date Reviewed: 04/18/2024 Reviewed by: Ericka Winters APRN.OUTDOOR ADVENTURE INSTRUCTOR - Fully Assessed Reason for Visit: Preparations For Surgery [898] Prescriptions as of 04/25/2024 - nitrofurantoin monohydrate and macrocrystal (MACROBID) 100 mg capsule Take 1 capsule by mouth two times a day for 5 days. - nystatin (MYCOSTATIN) powder - fluorometholone (FML LIQUID FILM) 0.1 % ophthalmic suspension Use 1 Drop in the left eye two times a day. - vitamin E, dl,tocopheryl acet, (VITAMIN E, DL, ACETATE,) 180 mg (400 unit) capsule Take 180 mg by mouth. - multivitamin/iron/folic acid (CENTRUM ORAL) Take by mouth. - hydroCHLOROthiazide 12.5 mg tablet Take 12.5 mg by mouth once daily. - gabapentin (NEURONTIN) 100 mg capsule Take 100 mg by mouth two times a day. - lisinopril (ZESTRIL) 10 mg tablet Take 10 mg by mouth once daily. - propranolol (INDERAL) 20 mg tablet Take 20 mg by mouth two times a day. - Cunningham-3 Fatty Acids-Vitamin E (FISH OIL) 1,000 mg cap Take 1 capsule by mouth. - simvastatin (ZOCOR) 40 mg tablet Take by mouth. - Cholecalciferol, Vitamin D3, (VITAMIN D) 1,000 unit ORAL Cap Take one(1) tablet daily. - ascorbic acid (VITAMIN C) 500 mg ORAL tablet Take one(1) tablet daily. 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] 10/05/2010 SDH (subdural hematoma) (HCC) [S06.5XAA] 02/13/2024 Trauma [T14.90XA] 02/14/2024 Fall [W19.XXXA] 02/14/2024 Periorbital hematoma of left eye [H05.232] 02/14/2024 HTN (hypertension) [I10] 02/14/2024 Hyperlipidemia [E78.5] 02/14/2024 TBI (traumatic brain injury) (HCC) [S06.9XAA] 02/14/2024 Benign meningioma (HCC) [D32.9] 04/16/2024 Pre-op examination [Z01.818] 04/16/2024 Type 2 diabetes mellitus without complication, *10/07/2016 KIMBERLY (obstructive sleep apnea) [G47.33] 04/18/2024 Encounter Status:Closed by KAEL MARVIN on 04/25/24 [facility] CNPN Telephone (NEAGCLM) RESHMA EVANS ([id number]) 1940 F Date Time Provider Department 04/25/24 NEYMAR JERONIMO During your visit today, we recorded the following information about you: Kael Marvin 04/25/2024 12:49 PM Signed Contacted patient to remind them of their arrival time for surgery with Dr. Neymar Jeronimo on 04/26/24. Patient is to arrive at [facility] at 5:30 am for surgery at 7:30 am. Spoke with patient and they are aware of all arrival information. Allergies As of Date: 04/25/2024 (No Known Allergies) Date Reviewed: 04/18/2024 Reviewed by: Ericka Winters APRN.OUTDOOR ADVENTURE INSTRUCTOR - Fully Assessed Reason for Visit: Preparations For Surgery [898] Prescriptions as of 04/25/2024 - nitrofurantoin monohydrate and macrocrystal (MACROBID) 100 mg capsule Take 1 capsule by mouth two times a day for 5 days. - nystatin (MYCOSTATIN) powder - fluorometholone (FML LIQUID FILM) 0.1 % ophthalmic suspension Use 1 Drop in the left eye two times a day. - vitamin E, dl,tocopheryl acet, (VITAMIN E, DL, ACETATE,) 180 mg (400 unit) capsule Take 180 mg by mouth. - multivitamin/iron/folic acid (CENTRUM ORAL) Take by mouth. - hydroCHLOROthiazide 12.5 mg tablet Take 12.5 mg by mouth once daily. - gabapentin (NEURONTIN) 100 mg capsule Take 100 mg by mouth two times a day. - lisinopril (ZESTRIL) 10 mg tablet Take 10 mg by mouth once daily. - propranolol (INDERAL) 20 mg tablet Take 20 mg by mouth two times a day. - Cunningham-3 Fatty Acids-Vitamin E (FISH OIL) 1,000 mg cap Take 1 capsule by mouth. - simvastatin (ZOCOR) 40 mg tablet Take by mouth. - Cholecalciferol, Vitamin D3, (VITAMIN D) 1,000 unit ORAL Cap Take one(1) tablet daily. - ascorbic acid (VITAMIN C) 500 mg ORAL tablet Take one(1) tablet daily. 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] 10/05/2010 SDH (subdural hematoma) (HCC) [S06.5XAA] 02/13/2024 Trauma [T14.90XA] 02/14/2024 Fall [W19.XXXA] 02/14/2024 Periorbital hematoma of left eye [H05.232] 02/14/2024 HTN (hypertension) [I10] 02/14/2024 Hyperlipidemia [E78.5] 02/14/2024 TBI (traumatic brain injury) (HCC) [S06.9XAA] 02/14/2024 Benign meningioma (HCC) [D32.9] 04/16/2024 Pre-op examination [Z01.818] 04/16/2024 Type 2 diabetes mellitus without complication, *10/07/2016 KIMBERLY (obstructive sleep apnea) [G47.33] 04/18/2024 Encounter Status:Closed by KAEL MARVIN on 04/25/24 [facility] Della 04-23-2024 CNPN Telephone (NEAGCLM) RESHMA EVANS ([id number]) 1940 F Date Time Provider Department 04/23/24 NEYMAR JERONIMO NEAGCLM During your visit today, we recorded the following information about you: Myrtle Brand RN 04/23/2024 10:15 AM Signed Patient is scheduled to undergo a craniotomy with Dr. Jeronimo on 04/26/2024. I called and spoke to patient's daughter Trina, returning her voice message. I educated her that her mother was placed on Macrobid bid x5 days for UTI. Patient is to take antiobotic as prescribed up until surgery and the inpatient team will manage while she is admitted. Educated to avoid NSAIDs, vitamins for 7 days prior to surgery as well. Patient is not on any blood thinners. Daughter verbalized understanding and was appreciaitive of all. She will contact the office with any questions or concerns. Myrtle Brand RN Allergies As of Date: 04/23/2024 (No Known Allergies) Date Reviewed: 04/18/2024 Reviewed by: Ericka Winters APRN.OUTDO[employer] ADVENTURE INSTRUCTOR - Fully Assessed Reason for Visit: Returning Patient's Call [408] Prescriptions as of 04/23/2024 - nitrofurantoin monohydrate and macrocrystal (MACROBID) 100 mg capsule Take 1 capsule by mouth two times a day for 5 days. - nystatin (MYCOSTATIN) powder - fluorometholone (FML LIQUID FILM) 0.1 % ophthalmic suspension Use 1 Drop in the left eye two times a day. - vitamin E, dl,tocopheryl acet, (VITAMIN E, DL, ACETATE,) 180 mg (400 unit) capsule Take 180 mg by mouth. - multivitamin/iron/folic acid (CENTRUM ORAL) Take by mouth. - hydroCHLOROthiazide 12.5 mg tablet Take 12.5 mg by mouth once daily. - gabapentin (NEURONTIN) 100 mg capsule Take 100 mg by mouth two times a day. - lisinopril (ZESTRIL) 10 mg tablet Take 10 mg by mouth once daily. - propranolol (INDERAL) 20 mg tablet Take 20 mg by mouth two times a day. - Cunningham-3 Fatty Acids-Vitamin E (FISH OIL) 1,000 mg cap Take 1 capsule by mouth. - simvastatin (ZOCOR) 40 mg tablet Take by mouth. - Cholecalciferol, Vitamin D3, (VITAMIN D) 1,000 unit ORAL Cap Take one(1) tablet daily. - ascorbic acid (VITAMIN C) 500 mg ORAL tablet Take one(1) tablet daily. 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] 10/05/2010 SDH (subdural hematoma) (HCC) [S06.5XAA] 02/13/2024 Trauma [T14.90XA] 02/14/2024 Fall [W19.XXXA] 02/14/2024 Periorbital hematoma of left eye [H05.232] 02/14/2024 HTN (hypertension) [I10] 02/14/2024 Hyperlipidemia [E78.5] 02/14/2024 TBI (traumatic brain injury) (HCC) [S06.9XAA] 02/14/2024 Benign meningioma (HCC) [D32.9] 04/16/2024 Pre-op examination [Z01.818] 04/16/2024 Type 2 diabetes mellitus without complication, *10/07/2016 KIMBERLY (obstructive sleep apnea) [G47.33] 04/18/2024 Encounter Status:Closed by MYRTLE BRAND on 04/23/24 [facility] Bacteria Ur Culton Bacteria identified Cx Nom (U) ORGANISM ID: 1 >=100,000 CFU/ml Escherichia coli ORGANISM ID: 1 (ESCHERICHIA COLI) ANTIBIOTIC INTERPRETATION MAURISIO STATUS REFERENCE RANGE Ampicillin S <=4 F Susceptible <=8 , Intermediate >8 , Resistant >16 Cefazolin S <=1 F Susceptible 0-16 , Intermediate <0 or >16 , Resistant >16 For uncomplicated urinary tract infections, cefazolin results can be used to predict susceptibility or resistance to cephalexin. Ceftriaxone S <=1 F Susceptible <=1 , Intermediate >1 , Resistant >=4 Cefepime S <=1 F Susceptible <=2 , Susceptible-Dose Dependent >2 , Resistant >=16 Ertapenem S <=0.25 F Susceptible <=0.5 , Intermediate >.5 , Resistant >1 Meropenem S <=0.5 F Susceptible <=1 , Intermediate >1 , Resistant >2 Aztreonam S <=2 F Susceptible <=4 , Intermediate >4 , Resistant >=16 Ampicillin/Sulbact S 2 F Piperacillin/Tazobac S <=2 F Gentamicin S <=2 F Susceptible <=4 , Intermediate >4 , Resistant >8 Trimeth sulfameth S <=0.5 F Ciprofloxacin S <=0.25 F Susceptible <0.5 , Intermediate >=.5 , Resistant >=1 Nitrofurantoin S <=16 F Susceptible <=32 , Intermediate >32 , Resistant >64 Abnormal [facility] Comment on above: Performed By: #### 6 30-4 ####[facility] LABORATORYCLIA [id number] [address] STATES OF [facility] CBC panel Auto (Bld)on 04-18 Erythrocyte distribution width (RBC) [Ratio] 13.5 % Normal 11.5-15.0 [facility] Comment on above: Order Comment: Speci men Type: BLOOD SPECIMENOrdering Facility: [facility] Address: [address] [place] [address] Performed By: #### 5 8410-2 ####[facility] LABORATORYCLIA [id number] [address] STATES [facility] Hematocrit (Bld) [Volume fraction] 40.9 % Normal 36.0-46.0 [facility] Comment on above: Order Comment: Speci men Type: BLOOD SPECIMENOrdering Facility: [facility] Address: [address] [place] [address] Performed By: #### 5 8410-2 ####[facility] LABORATORYCLIA [id number] [address] STATES [facility] Hemoglobin (Bld) [Mass/Vol] 13.1 g/dL Normal 11.5-15.5 [facility] Comment on above: Order Comment: Speci men Type: BLOOD SPECIMENOrdering Facility: [facility] Address: [address] [place] [address] Performed By: #### 5 8410-2 ####[facility] LABORATORYCLIA [id number] [address] STATES [facility] MCH (RBC) [Entitic mass] 30.2 pg Normal 26.0-34.0 [facility] Comment on above: Order Comment: Speci men Type: BLOOD SPECIMENOrdering Facility: [facility] Address: [address] [place] [address] Performed By: #### 5 8410-2 ####[facility] LABORATORYCLIA [id number] [address] [place] [facility] MCHC (RBC) [Mass/Vol] 32.0 g/dL Normal 30.5-36.0 [facility] Comment on above: Order Comment: Speci men Type: BLOOD SPECIMENOrdering Facility: [facility] Address: [address] [place] [address] Performed By: #### 5 8410-2 ####[facility] LABORATORYCLIA [id number] [address] OF [facility] MCV (RBC) [Entitic vol] 94.2 fL Normal 80.0-100.0 [facility] Comment on above: Order Comment: Speci men Type: BLOOD SPECIMENOrdering Facility: [facility] Address: [address] [place] [address] Performed By: #### 5 8410-2 ####[facility] LABORATORYCLIA [id number] [address] Nucleated RBC (Bld) [#/Vol] 10*3/uL Normal <0.01 [facility] Comment on above: Order Comment: Speci men Type: BLOOD SPECIMENOrdering Facility: [facility] Address: [address] [place] [address] Performed By: #### 5 8410-2 ####[facility] LABORATORYCLIA [id number] [address] [place] Platelet mean volume (Bld) [Entitic vol] 10.0 fL Normal 9.0-12.7 [facility] Comment on above: Order Comment: Speci men Type: BLOOD SPECIMENOrdering Facility: [facility] Address: [address] [place] [address] Performed By: #### 5 8410-2 ####[facility] LABORATORYCLIA [id number] [address] [place] Platelets (Bld) [#/Vol] 230 10*3/uL Normal 150-400 [facility] Comment on above: Order Comment: Speci men Type: BLOOD SPECIMENOrdering Facility: [facility] Address: [address] [place] [address] Performed By: #### 5 8410-2 ####[facility] LABORATORYCLIA [id number] [address] OF [facility] RBC (Bld) [#/Vol] 4.34 10*6/uL Normal 3.90-5.20 [facility] Comment on above: Order Comment: Speci men Type: BLOOD SPECIMENOrdering Facility: [facility] Address: [address] [place] [address] Performed By: #### 5 8410-2 ####[facility] LABORATORYCLIA [id number] [address] OF [facility] WBC (Bld) [#/Vol] 7.04 10*3/uL Normal 3.70-11.00 [facility] Comment on above: Order Comment: Speci men Type: BLOOD SPECIMENOrdering Facility: [facility] Address: [address] [place] [address] Performed By: #### 5 8410-2 ####[facility] LABORATORYCLIA [id number] [address] CNPValery 04-18-2024 CNPN Telephone (NEAGCLM) RESHMA EVANS ([id number]) 1940 F Date Time Provider Department 04/18/24 NEYMAR JERONIMO During your visit today, we recorded the following information about you: Karli Cox, ZOHREH 04/18/2024 4:21 PM Signed Trina Taylor, radiology scheduler let me know that patient's dtr called in asking why moms surgery was moved from Monday to Monday. I called Trina, patient's daughter back and let her know that due to OR scheduling/conflict that Reshma had to be moved to Monday. I left my phone # and ext to call back. Karli Cox RN Allergies As of Date: 04/18/2024 (No Known Allergies) Date Reviewed: 04/18/2024 Reviewed by: Ericka Winters APRN.OUTDOOR ADVENTURE INSTRUCTOR - Fully Assessed Reason for Visit: 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ther [3602] Prescriptions as of 04/18/2024 - nystatin (MYCOSTATIN) powder - fluorometholone (FML LIQUID FILM) 0.1 % ophthalmic suspension Use 1 Drop in the left eye two times a day. - vitamin E, dl,tocopheryl acet, (VITAMIN E, DL, ACETATE,) 180 mg (400 unit) capsule Take 180 mg by mouth. - multivitamin/iron/folic acid (CENTRUM ORAL) Take by mouth. - hydroCHLOROthiazide 12.5 mg tablet Take 12.5 mg by mouth once daily. - gabapentin (NEURONTIN) 100 mg capsule Take 100 mg by mouth two times a day. - lisinopril (ZESTRIL) 10 mg tablet Take 10 mg by mouth once daily. - propranolol (INDERAL) 20 mg tablet Take 20 mg by mouth two times a day. - Cunningham-3 Fatty Acids-Vitamin E (FISH OIL) 1,000 mg cap Take 1 capsule by mouth. - simvastatin (ZOCOR) 40 mg tablet Take by mouth. - Cholecalciferol, Vitamin D3, (VITAMIN D) 1,000 unit ORAL Cap Take one(1) tablet daily. - ascorbic acid (VITAMIN C) 500 mg ORAL tablet Take one(1) tablet daily. 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] 10/05/2010 SDH (subdural hematoma) (HCC) [S06.5XAA] 02/13/2024 Trauma [T14.90XA] 02/14/2024 Fall [W19.XXXA] 02/14/2024 Periorbital hematoma of left eye [H05.232] 02/14/2024 HTN (hypertension) [I10] 02/14/2024 Hyperlipidemia [E78.5] 02/14/2024 TBI (traumatic brain injury) (HCC) [S06.9XAA] 02/14/2024 Benign meningioma (HCC) [D32.9] 04/16/2024 Pre-op examination [Z01.818] 04/16/2024 Type 2 diabetes mellitus without complication, *10/07/2016 KIMBERLY (obstructive sleep apnea) [G47.33] 04/18/2024 Encounter Status:Closed by KARLI COX on 04/18/24 Normal [facility] Comprehensive metabolic 2000 panelon 04-18-2024 Albumin [Mass/Vol] 4.3 g/dL Normal 3.9-4.9 [facility] Comment on above: Order Comment: Speci men Type: BLOOD SPECIMENOrdering Facility: [facility] Address: [address] [place] [address] Performed By: #### 2 4323-8 ####[facility] LABORATORYCLIA [id number] [address] [place] ALP [Catalytic activity/Vol] 59 U/L Normal 34-123 [facility] Comment on above: Order Comment: Speci men Type: BLOOD SPECIMENOrdering Facility: [facility] Address: [address] [place] [address] Performed By: #### 2 4323-8 ####[facility] LABORATORYCLIA [id number] [place] [address] [place] ALT With P-5'-P [Catalytic activity/Vol] 10 U/L Normal 7-38 [facility] Comment on above: Order Comment: Speci men Type: BLOOD SPECIMENOrdering Facility: [facility] Address: [address] [place] [address] Performed By: #### 2 4323-8 ####[facility] LABORATORYCLIA [id number] [address] [place] Anion gap [Moles/Vol] 11 mmol/L Normal 8-15 [facility] Comment on above: Order Comment: Speci men Type: BLOOD SPECIMENOrdering Facility: [facility] Address: [address] [place] [address] Performed By: #### 2 4323-8 ####[facility]ORATORYCLIA [id number] [address] [place] AST With P-5'-P [Catalytic activity/Vol] 18 U/L Normal 13-35 [facility] Comment on above: Order Comment: Speci men Type: BLOOD SPECIMENOrdering Facility: [facility] Address: [address] [place] [address] Performed By: #### 2 4323-8 ####[facility]ORATORYCLIA [id number] [place] [address] [place] Bilirubin [Mass/Vol] 0.3 mg/dL Normal 0.2-1.3 [facility] Comment on above: Order Comment: Speci men Type: BLOOD SPECIMENOrdering Facility: [facility] Address: [address] [place] [address] Performed By: #### 2 4323-8 ####[facility] LABORATORYCLIA [id number] [place] [address] [place] Calcium [Mass/Vol] 10.7 mg/dL High 8.5-10.2 [facility] Comment on above: Order Comment: Speci men Type: BLOOD SPECIMENOrdering Facility: [facility] Address: [address] [place] [address] Performed By: #### 2 4323-8 ####[facility]ORATORYCLIA [id number] [place] [address] [place] Chloride [Moles/Vol] 104 mmol/L Normal 98-107 [facility] Comment on above: Order Comment: Speci men Type: BLOOD SPECIMENOrdering Facility: [facility] Address: [address] [place] [address] Performed By: #### 2 4323-8 ####[facility]ORATORYCLIA [id number] [place] [address] [place] CO2 [Moles/Vol] 29 mmol/L Normal 22-30 [facility] Comment on above: Order Comment: Speci men Type: BLOOD SPECIMENOrdering Facility: [facility] Address: [address] [place] [address] Performed By: #### 2 4323-8 ####[facility]ITALCLIA [id number] [address] STATES [facility] Creatinine [Mass/Vol] 1.07 mg/dL High 0.58-0.96 [facility] Comment on above: Order Comment: Speci men Type: BLOOD SPECIMENOrdering Facility: [facility] Address: [address] [place] [address] Performed By: #### 2 4323-8 ####[facility]ITALCLIA [id number] [address] Creatinine and Glomerular filtration rate.predicted panel (S/P/Bld) 51 mL/min/1.73m??? Low >=60 [facility] Comment on above: Order Comment: Speci men Type: BLOOD SPECIMENOrdering Facility: [facility] Address: [address] [place] [address] Result Comment: Annalise mated Glomerular Filtration Rate (eGFR) is calculated using the 2020 CKD-EPI creatinine equation. This equation utilizes serum creatinine, sex, and age as parameters. The creatinine assay has traceable calibration to isotope dilution-mass spectrometry. Refer to KDIGO guidelines for clinical interpretation. In patients with unstable renal function, e.g. those with acute kidney injury, the eGFR may not accurately reflect actual GFR. Performed By: #### 2 4323-8 ####[facility] LABORATORYCLIA [id number] [address] STATES OF [facility] Glucose [Mass/Vol] 106 mg/dL High 74-99 [facility] Comment on above: Order Comment: Speci men Type: BLOOD SPECIMENOrdering Facility: [facility] Address: [address] [place] [address] Result Comment: The [place] Diabetes [employer] (ADA) provides guidance for cutoff values for fasting glucose and random glucose. The ADA defines fasting as no caloric intake for at least 8 hours. Fasting plasma glucose results between 100 to 125 mg/dL indicate increased risk for diabetes (prediabetes). Fasting plasma glucose results greater than or equal to 126 mg/dL meet the criteria for diagnosis of diabetes. In the absence of unequivocal hyperglycemia, results should be confirmed by repeat testing. In a patient with classic symptoms of hyperglycemia or hyperglycemic crisis, random plasma glucose results greater than or equal to 200 mg/dL meet the criteria for diagnosis of diabetes. Reference: Standards of Medical Care in Diabetes 2016, [place] [employer]. Diabetes Care. 2016.39(Suppl 1). Performed By: #### 2 4323-8 ####[facility] LABORATORYCLIA [id number] [place] [address] [place] Potassium [Moles/Vol] 5.2 mmol/L High 3.7-5.1 [facility] Comment on above: Order Comment: Jr thomas Type: BLOOD SPECIMENOrdering Facility: [facility] Address: [address] [place] [address] Performed By: #### 2 4323-8 ####[facility] LABORATORYCLIA [id number] [place] [address] [place] Protein [Mass/Vol] 7.4 g/dL Normal 6.3-8.0 [facility] Comment on above: Order Comment: Jr thomas Type: BLOOD SPECIMENOrdering Facility: [facility] Address: [address] [place] [address] Performed By: #### 2 4323-8 ####[facility] LABORATORYCLIA [id number] [place] [address] [place] Sodium [Moles/Vol] 144 mmol/L Normal 136-144 [facility] Comment on above: Order Comment: Jr thomas Type: BLOOD SPECIMENOrdering Facility: [facility] Address: [address] [place] [address] Performed By: #### 2 4323-8 ####[facility] LABORATORYCLIA [id number] [place] [address] [place] Urea nitrogen [Mass/Vol] 29 mg/dL High 7-21 [facility] Comment on above: Order Comment: Jr thomas Type: BLOOD SPECIMENOrdering Facility: [facility] Address: [address] [place] [address] Performed By: #### 2 4323-8 ####[facility] LABORATORYCLIA [id number] [place] [address] [place] [facility] ECG COMPLETEon 04-18-2024 Atrial Rate 78 BPM [facility] Calculated P Lavinia 39 degrees [facility] Calculated R Lavinia -22 degrees [facility] Calculated T Lavinia -2 degrees [facility] P-R Interval 198 ms [facility] QRS Duration 100 ms [facility] QT Interval 398 ms [facility] QTC Calculation (Bazett) 453 ms [facility] Ventricular Rate 78 BPM [facility] NORMAL SINUS RHYTHM POSSIBLE ANTERIOR INFARCT , AGE UNDETERMINED LOW VOLTAGE NONSPECIFIC ST CHANGES NO PREVIOUS ECGS AVAILABLE Confirmed by MD LINDQUIST DAVID ([id number]) on 04/18/2024 3:45:18 PM [facility] NAME : TRINH EVANS PID : [id number] : 1940 Gender : Female Race : ORD : [id number] Procedure Date : Apr 18 2024 10:59:57 Edit Date : Apr 18 2024 15:45:20 Diagnosis: NORMAL SINUS RHYTHM POSSIBLE ANTERIOR INFARCT , AGE UNDETERMINED LOW VOLTAGE NONSPECIFIC ST CHANGES NO PREVIOUS ECGS AVAILABLE Confirmed by MD LINDQUIST DAVID ([id number]) on 04/18/2024 3:45:18 PM Test Reason : HCS Location : 11 : 11 Overread By : MD LINDQUIST DAVID Edited By : MD LINDQUIST DAVID Referred By : NEYMAR JERONIMO Acquired by : ERICKA WINTERS [facility] ECG COMPLETE Ventricular Rate : 7 8 BPM Atrial Rate : 78 BPM P-R Interval : 198 ms QRS Duration : 100 ms Q-T Interval : 398 ms QTC Calculation(Bazett) : 453 ms Calculated P Lavinia : 39 degrees Calculated R Lavinia : -22 degrees Calculated T Lavinia : -2 degrees NORMAL SINUS RHYTHM POSSIBLE ANTERIOR INFARCT , AGE UNDETERMINED LOW VOLTAGE NONSPECIFIC ST CHANGES NO PREVIOUS ECGS AVAILABLE Confirmed by MD LINDQUIST DAVID ([id number]) on 04/18/2024 3:45:18 PM NAME : RESHMA EVANS PID : [id number] : 1940 Gender : Female Race : ORD : [id number] Procedure Date : Apr 18 2024 10:59:57 Edit Date : Apr 18 2024 15:45:20 Diagnosis: NORMAL SINUS RHYTHM POSSIBLE ANTERIOR INFARCT , AGE UNDETERMINED LOW VOLTAGE NONSPECIFIC ST CHANGES NO PREVIOUS ECGS AVAILABLE Confirmed by MD LINDQUIST DAVID ([id number]) on 04/18/2024 3:45:18 PM Test Reason : HCS Location : 11 : Overread By : MD LINDQUIST DAVID Edited By : MD LINDQUIST DAVID Referred By : NEYMAR JERONIMO Acquired by : ERICKA WINTERS [facility] HISTORY PHYSICALon HISTORY PHYSICAL HNO ID: [id number] Author: ERICKA WINTERS APRN.CNP Service: ? Author Type: Nurse Practitioner Type: H&P Filed: 04/18/2024 12:44 Note Text: [facility] [facility] HISTORY AND PHYSICAL EXAMINATION SERVICE DATE: 04/18/2024 SERVICE TIME: 10:40 AM PRIMARY CARE PHYSICIAN: Zoë Kaplan NP, OUTDOOR ADVENTURE INSTRUCTOR Assessment Patient has the following medical conditions which may affect howard-operative course: Benign meningioma (HCC) Surgery scheduled 04/26/24 Hyperlipidemia Stable on statin Instructed to take DOS HTN (hypertension) On Lisinopril, propranolol, HCTZ Instructed to hold lisinopril DOS and take HCTZ and propranolol DOS Pre-op examination Medical conditions which may affect the perioperative course were address in today's visit. Type 2 diabetes mellitus without complication, without long-term current use of insulin (HCC) Reports diet controlled Used to take medications - not on any medication for more than 20 years KIMBERLY (obstructive sleep apnea) Reports no need for CPAP for a long time , more than 20 years Marquez Activity Status Index: METS: Walk a block or two on level ground (2.75 METs) DASI Score: 2.75 Patient denies any chest pain or undue shortness of breath with the above physical activity. Clinical Frailty Scale: 3. Well, with treated comorbid disease ARISCAT Score: Age: >80 Preoperative SpO2: >=96% Respiratory infection in the last month: No Preoperative anemia: No Surgical incision: peripheral Duration of surgery: >3 hrs Emergency procedure: No ARISCAT Score: 39 ANESTHESIA FINDINGS: Intubation History: No history of difficult intubation. No abnormal airway history Significant Anesthesia Considerations: none Airway History: No history of difficult airway No abnormal airway history I - PHYSICAL EVALUATION AIRWAY Patient intubated: No. DENTAL Dental findings: teeth intact. Dentures, upper: partial. II - ANESTHESIA PLAN Anesthetic Plan: general Beta Zully Monitoring Plan Post Procedure Analgesic Plan Prepared for Surgery: CONSULTS: The following consults have been initiated at this time: primary care/internal medicine. Planned Anesthetic: general The Following Tests/Procedures Have Been Initiated: No orders of the defined types were placed in this encounter. REASON FOR VISIT: Reshma Evans is a 83 year old female who is scheduled for Procedure(s): CRANIOTOMY FOR EXCISION SUPRATENTORIAL MENINGIOMA (Left) MICROSURGICAL TECHNIQUE FOR CRANIOTOMY PROCEDURES (Left) BRAINLAB STEREOTACTIC COMPUTER-ASSISTED NAVIGATIONAL PROCEDURE CRANIAL (Left) at the request of Dr. Neymar Jeronimo for routine HANDP. My final recommendation will be communicated back to the requesting physician by way of shared medical record or letter. Subjective The patient has the following: COVID-19 Immunization Status Overdue - Covid-19 Vaccine () Overdue since 03/10/2024 10/23/2020 Imm Admin: COVID-19 original vaccine, full dose, monovalent (MODERNA) 09/09/2020 Imm Admin: COVID-19 original vaccine, full dose, monovalent (MODERNA) CHIEF COMPLAINT: The reason for this visit is to perform a comprehensive review of the patient's past medical history, assess their current health status and obtain any additional testing required based on anesthesia guidelines. We will also identify any potential anesthesia problems or contraindications to the planned procedure. HPI: Patient is a 83 year old female who presents for pre surgical testing. Patient reports a history of meningioma, s/p left frontal craniotomy for meningioma resection in 09/24/10. Reports a vision changes in the left eye. 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 There is edema noted within the anterior left temporal lobe which is new/more pronounced than on the MRI dated 02/07/2024. After discussing with surgeon, patient agrees to surgical intervention. Risk and benefits discussed by surgeon. Patient denies any other problems or concerns at this time. REVIEW OF SYSTEMS: General: Negative for: fever. Neurological: Negative for: delirium, dementia, seizures, TIA and strokes. Respiratory: Positive for: obstructive sleep apnea and CPAP/BiPAP noncompliant (reports had it a log time ago, no need for CPAP anymore). Negative for: asthma, COPD, pneumonia within 6 weeks and URI < 2 weeks. Cardiovascular: Positive for: hyperlipidemia and hypertension Negative for: atrial fibrillation, CAD, chest pain, DVT/PE and recent [place]. GI: Negative for: abdominal pain, dysphagia, hepatitis, liver disease, nausea, vomiting and ETOH >2 drinks/day. : Negative for: dysuria, hematuria, urinary incontinence and renal failure. EXPANDED DUTY DENTAL ASSISTANT: Negative for abnormal vaginal bleeding, abnormal vaginal discharge. Endocri (more content not included)... Normal [facility] PT panel Coag (PPP)on 2023 INR Coag (PPP) [Relative time] 1.0 {INR} Normal 0.9-1.3 [facility] Comment on above: Order Comment: Speci men Type: BLOOD SPECIMENOrdering Facility: [facility] Address: [address] [place] [address] Result Comment: Rae min K Antagonist (VKA) Therapeutic Range: INR 2 to 3 (Target INR of 2.5) Note: For patients treated with VKA drugs, such as warfarin, the [place] [employer] 2012 Guideline recommends a therapeutic INR range of 2 to 3 (target INR of 2.5). This recommendation includes high-risk patients with antiphospholipid syndrome with previous arterial or venous thromboembolism, current-generation mechanical or bioprosthetic aortic heart valve replacement. Note: Patients with mechanical aortic valve replacement and additional risk factors for thromboembolic events (atrial fibrillation, previous thromboembolism, LV dysfunction, hypercoagulable conditions) or an older generation mechanical AVR (i.e., ball in-Cage) or any mechanical MVR should have a INR therapeutic range of 2.5 to 3.5 (target INR of 3). Carlos GH, et al. Chest 2012, 141:7S-47S Lane RA, et al. [facility] 2017, 70: 252-289 Performed By: #### 3 4528-0, 73322-5 ####[facility] LABORATORYCLIA [id number] [address] [place] PT Coag (PPP) [Time] 10.5 s Normal 9.7-13.0 [facility] Comment on above: Order Comment: Speci men Type: BLOOD SPECIMENOrdering Facility: [facility] Address: [address] [place] [address] Performed By: #### 3 4528-0, 39351-0 ####[facility] LABORATORYCLIA [id number] [address] STAPHYLOCOCCUS AUREUS AND MR SA SCREEN, PCR, NASALon 04-18-2024 S. aureus and MRSA panel KAHLIL+probe (Nose) Not detected Normal Not Detected [facility] Comment on above: Order Comment: Speci men Type: SWABOrdering Facility: [facility] Address: [address] [place] [address] Performed By: #### S APCR ####[facility] LABORATORYCLIA [id number] [address] OF [facility] TYPE AND SCREEN,30 DAYon ABO A Normal [facility] Comment on above: Order Comment: Speci men Type: BLOOD SPECIMEN [facility] Address: [address] [place] [address] Performed By: #### T SCR30 #### [facility] CLIA [id number] [address] Rh Nom (Bld) Negative Normal [facility] Comment on above: Order Comment: Speci men Type: BLOOD SPECIMEN [facility] Address: [address] [place] [address] Performed By: #### T SCR30 #### [facility] CLIA [id number] [address] Urinalysis complete panel (U )on 04-18-2024 Bacteria LM.HPF (Urine sed) [#/Area] Few Abnormal None Seen [facility] Comment on above: Order Comment: Speci men Type: URINE SPECIMENOrdering Facility: [facility] Address: [address] [place] [address] Performed By: #### 2 4356-8 ####[facility] LABORATORYCLIA [id number] [address] [place] Bilirubin Ql (U) Negative Normal Negative [facility] Comment on above: Order Comment: Speci men Type: URINE SPECIMENOrdering Facility: [facility] Address: [address] [place] [address] Performed By: #### 2 4356-8 ####[facility] LABORATORYCLIA [id number] [address] [place] Clarity (Unsp spec) Turbid Abnormal Clear [facility] Comment on above: Order Comment: Speci men Type: URINE SPECIMENOrdering Facility: [facility] Address: [address] [place] [address] Performed By: #### 2 4356-8 ####[facility] LABORATORYCLIA [id number] [address] Color (U) Yellow Normal yellow [facility] Comment on above: Order Comment: Speci men Type: URINE SPECIMENOrdering Facility: [facility] Address: [address] [place] [address] Performed By: #### 2 4356-8 ####[facility] LABORATORYCLIA [id number] [address] Epithelial cells LM.HPF (Urine sed) [#/Area] Few Normal [facility] Comment on above: Order Comment: Speci men Type: URINE SPECIMENOrdering Facility: [facility] Address: [address] [place] [address] Result Comment: Few Performed By: #### 2 4356-8 ####[facility] LABORATORYCLIA [id number] [address] [place] Glucose Test strip (U) [Mass/Vol] Negative Normal Trace, Negative [facility] Comment on above: Order Comment: Speci men Type: URINE SPECIMENOrdering Facility: [facility] Address: [address] [place] [address] Performed By: #### 2 4356-8 ####[facility] LABORATORYCLIA [id number] [address] [place] Hemoglobin Ql (U) Negative Normal Negative, Trace [facility] Comment on above: Order Comment: Speci men Type: URINE SPECIMENOrdering Facility: [facility] Address: [address] [place] [address] Performed By: #### 2 4356-8 ####[facility] LABORATORYCLIA [id number] [address] [place] Hyaline casts (Urine sed) [#/Area] 1-3 /LPF Abnormal 0 /LPF [facility] Comment on above: Order Comment: Speci men Type: URINE SPECIMENOrdering Facility: [facility] Address: [address] [place] [address] Performed By: #### 2 4356-8 ####[facility] LABORATORYCLIA [id number] [address] Ketones Ql (U) Negative Normal Negative, Trace [facility] Comment on above: Order Comment: Speci men Type: URINE SPECIMENOrdering Facility: [facility] Address: [address] [place] [address] Performed By: #### 2 4356-8 ####[facility] LABORATORYCLIA [id number] [address] Leukocyte esterase Test strip Ql (U) 500 Dawn/uL Abnormal Negative, 25 Dawn/uL [facility] Comment on above: Order Comment: Speci men Type: URINE SPECIMENOrdering Facility: [facility] Address: [address] [place] [address] Performed By: #### 2 4356-8 ####[facility] LABORATORYCLIA [id number] [address] STATES OF [facility] Nitrite Ql (U) 2+ Abnormal Negative [facility] Comment on above: Order Comment: Speci men Type: URINE SPECIMENOrdering Facility: [facility] Address: [address] [place] [address] Performed By: #### 2 4356-8 ####[facility] LABORATORYCLIA [id number] [address] STATES OF [facility] pH (U) 6.5 [pH] Normal 5.0-8.0 [facility] Comment on above: Order Comment: Speci men Type: URINE SPECIMENOrdering Facility: [facility] Address: [address] [place] [address] Performed By: #### 2 4356-8 ####[facility] LABORATORYCLIA [id number] [address] STATES [facility] Protein (U) [Mass/Vol] Trace Normal Trace , Negative [facility] Comment on above: Order Comment: Speci men Type: URINE SPECIMENOrdering Facility: [facility] Address: [address] [place] [address] Performed By: #### 2 4356-8 ####[facility]ITALCLIA [id number] [address] [place] RBC LM.HPF (Urine sed) [#/Area] 6-10 /HPF Abnormal 0-3 /HPF [facility] Comment on above: Order Comment: Speci men Type: URINE SPECIMENOrdering Facility: [facility] Address: [address] [place] [address] Performed By: #### 2 4356-8 ####[facility]PITALCLIA [id number] [address] Specific gravity (U) [Rel density] 1.018 Normal 1.005-1.030 [facility] Comment on above: Order Comment: Speci men Type: URINE SPECIMENOrdering Facility: [facility] Address: [address] [place] [address] Performed By: #### 2 4356-8 ####[facility] LABORATORYCLIA [id number] [address] Urobilinogen Ql (U) Normal Normal Normal [facility] Comment on above: Order Comment: Speci men Type: URINE SPECIMENOrdering Facility: [facility] Address: [address] [place] [address] Performed By: #### 2 4356-8 ####[facility] LABORATORYCLIA [id number] [address] WBC LM.HPF (Urine sed) [#/Area] /[HPF] Abnormal 0-5 /HPF [facility] Comment on above: Order Comment: Speci men Type: URINE SPECIMENOrdering Facility: [facility] Address: [address] [place], [place] [address] Performed By: #### 2 4356-8 ####[facility] LABORATORYCLIA [id number] [address] [place] XR CHEST 2V FRONTAL/LATon XR CHEST 2V FRONTAL/LAT * * *Final Report* * * DATE OF EXAM: Apr 18 2024 1:28PM AKX [id number] - XR CHEST 2V FRONTAL/LAT / PROCEDURE REASON: Intracranial meningioma (HCC) * * * * Physician Interpretation * * * * EXAMINATION: CHEST RADIOGRAPH (2 VIEW FRONTAL and LATERAL) CLINICAL HISTORY: Intracranial meningioma (HCC) MQ: XC2_6 EXAM DATE/TIME: 04/18/2024 1:28 PM COMPARISON: 02/13/2024. RESULT: Lines, tubes, and devices: None. Lungs and pleura: There is a very small granuloma or focal area of fibrosis seen in the left lung base near the heart apex. No consolidation. No lung mass. No pleural effusion. No pneumothorax. Cardiomediastinal silhouette: Normal cardiomediastinal silhouette. Bones and soft tissues: Unremarkable. IMPRESSION: Unremarkable exam with no evidence of acute disease. Inspector Material Disposition: PSCB Transcribe Date/Time: Apr 20 2024 11:03A Dictated by : WINTER BATISTA MD This examination was interpreted and the report reviewed and electronically signed by: WINTER BATISTA MD on Apr 20 2024 11:04AM EST [id number] Normal [facility] aPTT PPPon 04-18-2024 aPTT Coag (PPP) [Time] 25.9 s Normal 23.0-32.4 [facility] Comment on above: Order Comment: Speci men Type: BLOOD SPECIMENOrdering Facility: [facility] Address: [address] [place], [place] [address] Performed By: #### 3 4528-0, 29428-6 ####[facility] LABORATORYIA [id number] [address] OF [facility] Della 04-15-2024 CNPN Telephone ([facility]) BRIELLERESHMA HOUSTON ([id number]) 1940 F Date Time Provider Department 04/15/24 NEYMAR JERONIMO [facility] During your visit today, we recorded the following information about you: Kristi Marvinin Nicolas 04/15/2024 2:39 PM Signed Spoke with patient regarding moving surgery date from 04/24 to 04/26. Patient is good with this plan. Explained PST will not change and time of surgery and arrival time remains the same. Patient was appreciative. 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 If Pt. has a central line or IVAD, may access for administration according to line specific nursing protocol.Once exam is complete flush line and de-access according to line specific nursing protocol in the MR contrast administration guidelines link - fluorometholone (FML LIQUID FILM) 0.1 % ophthalmic suspension Use 1 Drop in the left eye two times a day. - vitamin E, dl,tocopheryl acet, (VITAMIN E, DL, ACETATE,) 180 mg (400 unit) capsule Take 180 mg by mouth. - multivitamin/iron/folic acid (CENTRUM ORAL) Take by mouth. - hydroCHLOROthiazide 12.5 mg tablet Take 12.5 mg by mouth once daily. - gabapentin (NEURONTIN) 100 mg capsule Take 100 mg by mouth two times a day. - lisinopril (ZESTRIL) 10 mg tablet Take 10 mg by mouth once daily. - propranolol (INDERAL) 20 mg tablet Take 20 mg by mouth two times a day. - Cunningham-3 Fatty Acids-Vitamin E (FISH OIL) 1,000 mg cap Take 1 capsule by mouth. - simvastatin (ZOCOR) 40 mg tablet Take by mouth. - Cholecalciferol, Vitamin D3, (VITAMIN D) 1,000 unit ORAL Cap Take one(1) tablet daily. - ascorbic acid (VITAMIN C) 500 mg ORAL tablet Take one(1) tablet daily. - CALCIUM/MAG OXIDE/VITAMIN D3 (CORAL CALCIUM PLUS ORAL) pt not sure of dosage takes 1 daily Problem List As Of Date 04/15/2024 Noted Resolved Benign neoplasm of cerebral meninges [D32.0] 10/05/2010 SDH (subdural hematoma) ([facility]) [S06.5XAA] 02/13/2024 Trauma [T14.90XA] 02/14/2024 Fall [W19.XXXA] 02/14/2024 Periorbital hematoma of left eye [H05.232] 02/14/2024 HTN (hypertension) [I10] 02/14/2024 Hyperlipidemia [E78.5] 02/14/2024 TBI (traumatic brain injury) ([facility]) [S06.9XAA] 02/14/2024 Encounter Status:Closed by KAEL MARVIN on 04/15/24 [facility] Office Visiton 04-15-2024 Follow-up visit [id number] Reshma Evans 1940 F Date Provider Department Center 04/15/2024 [id number] KAPLAN [facility] Family History Problem Relation Age of Onset No Known Problems Mother No Known Problems Father High Blood Pressure Brother High Blood Pressure Sister Family Status - Relation Status Age at Mother Father Brother Sister Level of Service:35827 ME OFFICE/OUTPATIENT ESTABLISHED LOW MDM 20 MIN Reason for Visit and Comments: Follow-up [236840] - Surgical Clearance for eye surgery (04/24) [facility] Progress Noteon 04-15-2024 Progress Note 04/15/2024 Reshma Evans (: 1940) is a 83 y.o. female , Established patient, here for evaluation of the following chief complaint(s): Follow-up (Surgical Clearance for eye surgery (04/24) ) ASSESSMENT/PLAN: 1. Pre-operative clearance - Stable exam findings. Will await PAT results and sign clearance forms accordingly. 2. Intracranial meningioma (HCC) - Stable. Follow up with specialist as directed. 3. Skin yeast infection - nystatin (Mycostatin) 501955 UNIT/GM powder; Apply topically three times daily., Starting 04/15/2024, Normal - Encouraged to keep skin clean and dry. - Discussed signs and symptoms warranting follow up in the office- verbalized understanding. Follow up in about 2 months (around 06/15/2024) for AWV and fasting blood work. SUBJECTIVE/OBJECTIVE: HPI - Reshma presents today for surgical clearance for a left frontotemporal craniotomy for meningioma resection on 04/24/[address] Neymar Jeronimo through the [facility]. Is scheduled for PAT on 04/18/24 through the [facility]. Has had surgeries in the past and denies history of complications from anesthesia. Has concerns regarding a rash in her abdominal folds that she would like looked at today while she is here as well. Health Maintenance: Flu vaccine current: 04/08/24. Review of Systems Constitutional: Negative for chills and fever. Respiratory: Negative for chest tightness and shortness of breath. Cardiovascular: Negative for chest pain, palpitations and leg swelling. Gastrointestinal: Negative for abdominal distention and abdominal pain. Skin: Positive for rash. Vitals: 04/15/24 1057 BP: 112/64 Pulse: 67 SpO2: 97% Weight: 174 lb 3.2 oz (79 kg) Height: 5' 7 (1.702 m) Body mass index is 27.28 kg/m?. Physical Exam Constitutional: General: She is not in acute distress. Appearance: She is not ill-appearing or diaphoretic. HENT: Head: Normocephalic and atraumatic. Neck: Vascular: No carotid bruit. Cardiovascular: Rate and Rhythm: Normal rate and regular rhythm. Pulses: Normal pulses. Heart sounds: Normal heart sounds. No friction rub. Pulmonary: Effort: Pulmonary effort is normal. Breath sounds: Normal breath sounds. No wheezing, rhonchi or rales. Abdominal: General: Bowel sounds are normal. There is no distension. Palpations: Abdomen is soft. There is no mass. Tenderness: There is no abdominal tenderness. There is no guarding. Musculoskeletal: Cervical back: Neck supple. Right lower leg: No edema. Left lower leg: No edema. Lymphadenopathy: Cervical: No cervical adenopathy. Skin: General: Skin is warm. Findings: Rash (erythematous rash with satellite lesion in abdominal folds) present. Neurological: Mental Status: She is alert and oriented to person, place, and time. Psychiatric: Mood and Affect: Mood normal. Behavior: Behavior normal. Thought Content: Thought content normal. Judgment: Judgment normal. An electronic signature was used to authenticate this note. IFEANYI Fernandes CNP 04/15/2024 11:[address] [facility] Progress Note Patient verified by last name and . [place] [address]on 04-10-[address] [facility] 36 I recommend getting the PAT done through the facility performing the surgery so the workup includes everything they need. [facility] 36 Spoke to kashif Thurston that she is unsure of the date as of right now, date is projected for 04/18 at [facility] in [place]. Is there anyway that she would be able to get the pre-admission testing done here? As it is hard for both her and her to drive that far. I scheduled patient for 04/15/2024 at 11:00 am as that was the only available we had. [facility] 36 Okay to use. Does gema have a date and location set for her pre-admission testing? [facility] 36on 04-09-2024 36 Name of caller: jeanie kenney Contact phone number: [phone] Relationship to Patient: patient Provider: Zoë Kaplan Practice: [facility] Chief Complaint/Reason for Call: pt called in to report having surgery on the 16th Best time of day caller can be reached: AM Patient advised that office/PCP has 24-48 business hours to return their call: Yes [facility] Della 04-09-2024 [facility] Telephone ([facility]) NATHANRESHMA Ronit ([id number]) 1940 F Date Time Provider Department 04/09/24 ARNIE KWONG [facility] During your visit today, we recorded the following information about you: Allergies As of Date: 04/09/2024 (No Known Allergies) Date Reviewed: 04/04/2024 Reviewed by: Neymar Jeronimo MD - Fully Assessed Prescriptions as of 04/09/2024 - fluorometholone (FML LIQUID FILM) 0.1 % ophthalmic suspension Use 1 Drop in the left eye two times a day. - vitamin E, dl,tocopheryl acet, (VITAMIN E, DL, ACETATE,) 180 mg (400 unit) capsule Take 180 mg by mouth. - multivitamin/iron/folic acid (CENTRUM ORAL) Take by mouth. - hydroCHLOROthiazide 12.5 mg tablet Take 12.5 mg by mouth once daily. - gabapentin (NEURONTIN) 100 mg capsule Take 100 mg by mouth two times a day. - lisinopril (ZESTRIL) 10 mg tablet Take 10 mg by mouth once daily. - propranolol (INDERAL) 20 mg tablet Take 20 mg by mouth two times a day. - Cunningham-3 Fatty Acids-Vitamin E (FISH OIL) 1,000 mg cap Take 1 capsule by mouth. - simvastatin (ZOCOR) 40 mg tablet Take by mouth. - Cholecalciferol, Vitamin D3, (VITAMIN D) 1,000 unit ORAL Cap Take one(1) tablet daily. - ascorbic acid (VITAMIN C) 500 mg ORAL tablet Take one(1) tablet daily. - CALCIUM/MAG OXIDE/VITAMIN D3 (CORAL CALCIUM PLUS ORAL) pt not sure of dosage takes 1 daily Problem List As Of Date 04/09/2024 Noted Resolved Benign neoplasm of cerebral meninges [D32.0] 10/05/2010 SDH (subdural hematoma) (HCC) [S06.5XAA] 02/13/2024 Trauma [T14.90XA] 02/14/2024 Fall [W19.XXXA] 02/14/2024 Periorbital hematoma of left eye [H05.232] 02/14/2024 HTN (hypertension) [I10] 02/14/2024 Hyperlipidemia [E78.5] 02/14/2024 TBI (traumatic brain injury) (HCC) [S06.9XAA] 02/14/2024 Encounter Status:Closed by KAEL MARVIN on 04/09/24 [facility] CNPN Telephone (NEAGCLM) RESHMA EVANS ([id number]) 1940 F Date Time Provider Department 04/09/24 NEYMAR JERONIMO NEAGCLM During your visit today, we recorded the following information about you: Kael Marvin 04/09/2024 3:59 PM Signed Called patient and left a VM requesting a phone call back to discuss surgery details. 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 - vitamin E, dl,tocopheryl acet, (VITAMIN E, DL, ACETATE,) 180 mg (400 unit) capsule Take 180 mg by mouth. - multivitamin/iron/folic acid (CENTRUM ORAL) Take by mouth. - hydroCHLOROthiazide 12.5 mg tablet Take 12.5 mg by mouth once daily. - gabapentin (NEURONTIN) 100 mg capsule Take 100 mg by mouth two times a day. - lisinopril (ZESTRIL) 10 mg tablet Take 10 mg by mouth once daily. - propranolol (INDERAL) 20 mg tablet Take 20 mg by mouth two times a day. - Cunningham-3 Fatty Acids-Vitamin E (FISH OIL) 1,000 mg cap Take 1 capsule by mouth. - simvastatin (ZOCOR) 40 mg tablet Take by mouth. - Cholecalciferol, Vitamin D3, (VITAMIN D) 1,000 unit ORAL Cap Take one(1) tablet daily. - ascorbic acid (VITAMIN C) 500 mg ORAL tablet Take one(1) tablet daily. - CALCIUM/MAG OXIDE/VITAMIN D3 (CORAL CALCIUM PLUS ORAL) pt not sure of dosage takes 1 daily Problem List As Of Date 04/09/2024 Noted Resolved Benign neoplasm of cerebral meninges [D32.0] 10/05/2010 SDH (subdural hematoma) (HCC) [S06.5XAA] 02/13/2024 Trauma [T14.90XA] 02/14/2024 Fall [W19.XXXA] 02/14/2024 Periorbital hematoma of left eye [H05.232] 02/14/2024 HTN (hypertension) [I10] 02/14/2024 Hyperlipidemia [E78.5] 02/14/2024 TBI (traumatic brain injury) (HCC) [S06.9XAA] 02/14/2024 Encounter Status:Closed by KAEL MARVIN on 04/09/24 [facility] 36on 04-08-2024 36 Noted. Will see as scheduled. Make sure to update medication list when she comes for her visit. [facility] 36 S: Patient spoke geraldine de souza [facility] nurse regarding schedule an appointment. B: Eye surgery, she will find out tomorrow what the date and time is for the surgery. A: Patient states she is having eye surgery and would like to see Zoë before the surgery. Patient was also reviewing old paperwork and noticed test strips were listed on the paperwork and she said she is not a diabetic and does not test her blood sugars and is confused on why they are on her list. R: Insurance was verified. Appointment was scheduled for 04/08/24 at 1:40 pm with CARLEE Barclay. Instructed to bring insurance and ID. Denies COVID symptoms or exposure. Advised patient she will be able to talk it over with provider today regarding diabetes and testing sugars. Patient understands care advice. No further needs at this time. Patient instructed to call back with new or worsening symptoms. Reason for Disposition Caller requesting an appointment, triage offered and declined Protocols used: PCP Call - [id number]-08-2024 Follow-up visit [id number] Reshma Evans 1940 F Date Provider Department Center 04/08/2024 [id number] KAPLAN [facility] Family History Problem Relation Age of Onset No Known Problems Mother No Known Problems Father High Blood Pressure Brother High Blood Pressure Sister Family Status - Relation Status Age at Mother Father Brother Sister Level of Service:[id number] ME OFFICE/OUTPATIENT ESTABLISHED [facility] 10 MIN Reason for Visit and Comments: Pre-op Exam [[id number]] - Is having eye surgery and was told that she needed to be seen to make sure she is in good health. Unknown of date. [facility] Progress Noteon 04-08-2024 Progress Note Patient verified by last name and . After obtaining consent, and per orders of Zoë Kaplan CNP, injection of Influenza given in the Right Deltoid by Theodora Bennett. Patient instructed to report any adverse reactions immediately. [facility] Progress Note 04/08/2024 Reshma Evans (: 1940) is a 83 y.o. female , Established patient, here for evaluation of the following chief complaint(s): Pre-op Exam (Is having eye surgery and was told that she needed to be seen to make sure she is in good health. Unknown of date. ) ASSESSMENT/PLAN: 1. Intracranial meningioma (HCC) - Called and spoke with specialist office. States they are hoping to have a date set for the surgery within the next week or so. Reshma will update us once the date is set and get her scheduled for a surgical clearance visit accordingly. Will get PAT completed through [facility] as directed. 2. Flu vaccine need - Flu vaccine (FLUAD), trivalent, adjuvanted, preservative-free (ages 65+/high dose) - VIS provided in AVS. Follow up for surgical clearance once date for surgery is set. SUBJECTIVE/OBJECTIVE: AMADOU Thurston presents today with a friend stating she was told she needs seen by her PCP before she can have eye surgery for her intracranial meningioma. When asking about this she actually just agreed to have the surgery today and does not have a date set yet. Will be getting PAT completed through the [facility], which is where her neurosurgeon is. Health Maintenance: Would like a flu vaccine. Review of Systems Constitutional: Negative for chills and fever. Respiratory: Negative for chest tightness and shortness of breath. Cardiovascular: Negative for chest pain. Vitals: 04/08/24 1333 BP: 124/84 Pulse: 71 SpO2: 97% Weight: 173 lb 3.2 oz (78.6 kg) Height: 5' 7 (1.702 m) Body mass index is 27.13 kg/m?. Physical Exam Constitutional: General: She is not in acute distress. Appearance: She is not ill-appearing or diaphoretic. Cardiovascular: Rate and Rhythm: Normal rate and regular rhythm. Heart sounds: Normal heart sounds. No murmur heard. No friction rub. Pulmonary: Effort: Pulmonary effort is normal. Breath sounds: Normal breath sounds. No wheezing, rhonchi or rales. Skin: General: Skin is warm and dry. Coloration: Skin is not pale. Findings: No erythema or rash. Neurological: Mental Status: She is alert and oriented to person, place, and time. Psychiatric: Mood and Affect: Mood normal. Behavior: Behavior normal. Thought Content: Thought content normal. Judgment: Judgment normal. An electronic signature was used to authenticate this note. Zoë Kaplan APRN - NELLY 04/08/2024 2:03 PM [facility] MR Pituitary and Sella turci ca WO and W contrast Robby 04-05-2024 IMPRESSION: 1. Study focused on the central skull base, with large left-sided sphenoid wing meningioma with involvement of the left optic canal likely compression of the optic nerve within the canal. Thin rim of dural enhancement along the anterior convexity and middle fossa. 2. 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 There is edema noted within the anterior left temporal lobe which is new/more pronounced than on the MRI dated 02/07/2024. This could be better assessed with a standard brain MRI with and without contrast. 4. Small right-sided anterior clinoid meningioma, similar to previous. Inspector Material Disposition: PSCB Transcribe Date/Time: Apr 05 2024 3:08P Dictated by : GASTON COWAN MD This examination was interpreted and the report reviewed and electronically signed by: GASTON COWAN MD on Apr 05 2024 3:24PM EST NivelaO * * *Final Report* * * DATE OF EXAM: Apr 04 2024 9:40AM A1M 0314 - MRI PITUITARY WO/W IVCON / PROCEDURE REASON: Benign neoplasm of meninges (HCC) * * * * Physician Interpretation * * * * EXAMINATION: MRI PITUITARY WO/W IVCON CLINICAL HISTORY: Benign neoplasm of the meninges TECHNIQUE: MRI of the brain with specific attention to the pituitary and skull base. MQ: MRBWOW_2 Contrast: 16ml mL Dotarem IV COMPARISON: CT performed 02/19/2024 and outside MRI performed 02/07/2024 RESULT: Acute Change: There is no evidence of an acute intracranial process. Hemorrhage: No focal hemorrhage in the visualized portions of the brain imaged. Mass Lesion/ Mass Effect: Again noted is a large enhancing extra-axial mass centered in the left greater wing of the sphenoid. The bulky portion of the mass measures approximately 3.3 x 3.1 x 2.5 cm in the anterior portion of the left middle fossa, with thickening of the greater wing of the sphenoid and enhancing tissue along the lateral left orbital wall, consistent with meningioma and bone thickening. Proptosis is noted on the left. Specific attention to the left optic canal demonstrates enhancement circumferentially within the optic canal and involving the anterior clinoid, as well as the left sphenoid, consistent with meningioma involvement. There is dural enhancement overlying the left frontal and temporal convexity as well as the floor of the anterior fossa on the left. This is similar to the previous MRI dated 02/07/2024. Small presumed meningioma along the left anterior clinoid process measuring 1 cm in diameter. No definite compression of the optic nerve. This is also similar to the previous study. Chronic Change: Encephalomalacia in the left frontal lobe. Edema within the anterior left temporal lobe does appear slightly more apparent than on the MRI performed 02/07/2024. The edema could be due to mass effect or brain invasion, favoring the former [facility] Provider, [facility] - 04/05/2024 * * *Final Report* * * DATE OF EXAM: Apr 04 2024 9:40AM A1M 0314 - MRI PITUITARY WO/W IVCON / PROCEDURE REASON: Benign neoplasm of meninges (HCC) * * * * Physician Interpretation * * * * EXAMINATION: MRI PITUITARY WO/W IVCON CLINICAL HISTORY: Benign neoplasm of the meninges TECHNIQUE: MRI of the brain with specific attention to the pituitary and skull base. MQ: MRBWOW_2 Contrast: 16ml mL Dotarem IV COMPARISON: CT performed 02/19/2024 and outside MRI performed 02/07/2024 RESULT: Acute Change: There is no evidence of an acute intracranial process. Hemorrhage: No focal hemorrhage in the visualized portions of the brain imaged. Mass Lesion/ Mass Effect: Again noted is a large enhancing extra-axial mass centered in the left greater wing of the sphenoid. The bulky portion of the mass measures approximately 3.3 x 3.1 x 2.5 cm in the anterior portion of the left middle fossa, with thickening of the greater wing of the sphenoid and enhancing tissue along the lateral left orbital wall, consistent with meningioma and bone thickening. Proptosis is noted on the left. Specific attention to the left optic canal demonstrates enhancement circumferentially within the optic canal and involving the anterior clinoid, as well as the left sphenoid, consistent with meningioma involvement. There is dural enhancement overlying the left frontal and temporal convexity as well as the floor of the anterior fossa on the left. This is similar to the previous MRI dated 02/07/2024. Small presumed meningioma along the left anterior clinoid process measuring 1 cm in diameter. No definite compression of the optic nerve. This is also similar to the previous study. Chronic Change: Encephalomalacia in the left frontal lobe. Edema within the anterior left temporal lobe does appear slightly more apparent than on the MRI performed 02/07/2024. The edema could be due to mass effect or brain invasion, favoring the former IMPRESSION IMPRESSION: 1. Study focused on the central skull base, with large left-sided sphenoid wing meningioma with involvement of the left optic canal likely compression of the optic nerve within the canal. Thin rim of dural enhancement along the anterior convexity and middle fossa. 2. 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 There is edema noted within the anterior left temporal lobe which is new/more pronounced than on the MRI dated 02/07/2024. This could be better assessed with a standard brain MRI with and without contrast. 4. Small right-sided anterior clinoid meningioma, similar to previous. Inspector Material Disposition: TRAVIS Transcribe Date/Time: Apr 05 2024 3:08P Dictated by : GASTON COWAN MD This examination was interpreted and the report reviewed and electronically signed by: GASTON COWAN MD on Apr 05 2024 3:24PM [facility] MR Pituitary and Sella turci ca WO and W contrast IVOrdered By: [facility] Provider on 04-05-2024 [facility] CNOVon 04-04-2024 CNOV Office Visit (NEAGCL M) PRISCILARESHMA MAI ([id number]) 1940 F Date Time Provider Department 04/04/24 9:30 AM NEYMAR JERONIMO NEAGCLM During your visit today, we recorded the following information about you: Pulse Respiration Blood pressure Weight 69/minute 16/minute 160/80 79.8 kg Height 1.702 m Neymar Jeronimo MD 04/19/2024 10:45 AM Signed NEUROSURGERY FOLLOW UP OFFICE NOTE Neymar Jeronimo MD Date of visit: April 04, 2024 Patient Name: Ms.Miriam Cottrell Nathan Date of : 1940 Current Age: [age] year old Sex: female MRN/E# [id number] Last Office Visit: 02/19/2024 CLINICAL SUMMARY: * 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 Dr. Mario Cruz - [facility] [phone] SUBJECTIVE: History of Present Illness. Reshma Evans is a 83 year old right-handed female presenting with son. PMH including HTN, HLD, KIMBERLY, DM. Patient has a past surgical history of left frontal craniotomy for meningioma resection, exenteration of frontal sinus 09/24/[address] Lee Mckeon [facility]. Pathology demonstrating Meningioma, meningotheliomatous-typ e (WHO Grade I). She was seen at [facility] on 02/13/2024 after a fall after stepping off the curb. She struck the left side of her face. CT brain demonstrated a small left frontal SDH. Repeat imaging was stable. She was recommended to keep her outpatient follow up appointment. She was seen on 02/19/2024 where she had been doing well since fall. She initially had MRIs ordered from Dr. Cruz with opthalmology due to the left eye exophthalmus. She noted that this had started about 2 months prior. She stated that when she looked out of the left eye that vision was a bit fuzzy. 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 Left sphenoid wing meningioma with most of its mass located away from the optic nerve. Small right anterior clinoid meningioma noted that was new from MRI in 2013. Since optic nerve was not well visualized, she was recommended to have MRI pituitary to better assess. Her CT brain showed improvement in the left lateral subdural collection, more chronic in appearance. Today she follow up with new MRI imaging. She reports that she has been doing well overall. States vision is about the same - had a fuzziness on the left eye. Denies double vision. She has mild headaches intermittently, not everyday, resolve well with tylenol. She noted that from laying down in MRI left leg was stiff and had some pain. She is eager to go over MRI results. She is here for image review, evaluation and plan of care. 02/19/2024 04/04/2024 [place] Outcome Scale Extended (JANNETH-E) Is the head injured person able to obey simple commands, or say any words? Yes Yes Is the head injured person able to obey simple commands, or say any words? Yes Yes Is the assistance of another person at home essential every day for some activities of daily living? No No Are they able to shop without assistance? Yes Yes Are they able to travel locally without assistance? Yes Yes Are they currently able to work to their previous capacity? Yes Yes Are they able to resume regulare social and leisure activities outside home? Yes Yes Have there been psychological problems which have resulted in ongoing family disruption or disruption to friendships? No No Are there any other current problems relating to the injury which affect daily life? 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 PAST MEDICAL HISTORY Diagnosis Date Diabetes (HCC) HTN (hypertension) 02/14/2024 Hyperlipidemia 02/14/2024 Obesity Sleep apnea PAST SURGICAL HISTORY Procedure Laterality Date ARTHRP KNE CONDYLEANDPLATU MEDIALANDLAT COMPARTMENTS 1979 right RECONSTRUCT CLEFT PALATE Infancy RECONSTRUCTION ROTATOR CUFF AVULSION CHRONIC 2008 right REPAIR CLEFT LIP Infancy FAMILY HISTORY Problem Relation Age of Onset other (esophageal cancer [Other]) Brother 62 other (leukemia [Other]) Sister 49 ALLERGIES No Known Allergies Current Outpatient Medications Medication Sig Dispense Refill fluorometholone (FML LIQUID FILM) 0.1 % ophthalmic suspension Use 1 Drop in the left eye two times a day. vitamin E, dl,tocopheryl acet, (VITAMIN E, DL, ACETATE,) 180 mg (400 unit) capsu (more content not included)... [facility] MR Pituitary and Sella turci ca WO and W contrast Robby 04-04-2024 Radiology Study observation (narrative) [facility] MRI PITUITARY WO/W IVCONon 0 04-04-2024 MRI PITUITARY WO/W IVCON * * *Final Report* * * DATE OF EXAM: Apr 04 2024 9:40AM A1M 0314 - MRI PITUITARY WO/W IVCON / PROCEDURE REASON: Benign neoplasm of meninges (HCC) * * * * Physician Interpretation * * * * EXAMINATION: MRI PITUITARY WO/W IVCON CLINICAL HISTORY: Benign neoplasm of the meninges TECHNIQUE: MRI of the brain with specific attention to the pituitary and skull base. MQ: MRBWOW_2 Contrast: 16ml mL Dotarem IV COMPARISON: CT performed 02/19/2024 and outside MRI performed 02/07/2024 RESULT: Acute Change: There is no evidence of an acute intracranial process. Hemorrhage: No focal hemorrhage in the visualized portions of the brain imaged. Mass Lesion/ Mass Effect: Again noted is a large enhancing extra-axial mass centered in the left greater wing of the sphenoid. The bulky portion of the mass measures approximately 3.3 x 3.1 x 2.5 cm in the anterior portion of the left middle fossa, with thickening of the greater wing of the sphenoid and enhancing tissue along the lateral left orbital wall, consistent with meningioma and bone thickening. Proptosis is noted on the left. Specific attention to the left optic canal demonstrates enhancement circumferentially within the optic canal and involving the anterior clinoid, as well as the left sphenoid, consistent with meningioma involvement. There is dural enhancement overlying the left frontal and temporal convexity as well as the floor of the anterior fossa on the left. This is similar to the previous MRI dated 02/07/2024. Small presumed meningioma along the left anterior clinoid process measuring 1 cm in diameter. No definite compression of the optic nerve. This is also similar to the previous study. Chronic Change: Encephalomalacia in the left frontal lobe. Edema within the anterior left temporal lobe does appear slightly more apparent than on the MRI performed 02/07/2024. The edema could be due to mass effect or brain invasion, favoring the former IMPRESSION: 1. Study focused on the central skull base, with large left-sided sphenoid wing meningioma with involvement of the left optic canal likely compression of the optic nerve within the canal. Thin rim of dural enhancement along the anterior convexity and middle fossa. 2. 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 There is edema noted within the anterior left temporal lobe which is new/more pronounced than on the MRI dated 02/07/2024. This could be better assessed with a standard brain MRI with and without contrast. 4. Small right-sided anterior clinoid meningioma, similar to previous. Inspector Material Disposition: TRAVIS Transcribe Date/Time: Apr 05 2024 3:08P Dictated by : GASTON COWAN MD This examination was interpreted and the report reviewed and electronically signed by: GASTON COWAN MD on Apr 05 2024 3:24PM EST [id number] [facility] XR Sacrum and Coccyx 2 Views on 03-13-2024 1. Degenerative changes. Report Dictated on Electronically Signed By: Paul Sherman MD Electronically Signed Date/Time: 03/13/2024 5:04 PM EDT [facility] Patient Name: RESHMA EVANS : 1940 Exam Date/Time: 03/13/2024 14:13 Procedure: XR SACRUM COCCYX 2+ VIEWS Ordering Provider: SPIVEY REBECCA Reason For Exam: s/p fall - tailbone pain THREE VIEWS OF THE SACRUM AND COCCYX CLINICAL INDICATION: s/p fall - tailbone pain TECHNIQUE: Three views of the sacrum and coccyx. COMPARISON: None FINDINGS: Normal appearance of the SI joints. Degenerative changes at the pubic symphysis. Mild osteoarthrosis at the hip joints bilaterally. Severe degenerative changes involving lower lumbar spine. Sacrum and coccyx appear intact on lateral view. No acute fracture seen. [facility] Paul Sherman MD - 03/13/2024 Patient Name: RESHMA EVANS : 1940 Exam Date/Time: 03/13/2024 14:13 Procedure: XR SACRUM COCCYX 2+ VIEWS Ordering Provider: SPIVEY REBECCA Reason For Exam: s/p fall - tailbone pain THREE VIEWS OF THE SACRUM AND COCCYX CLINICAL INDICATION: s/p fall - tailbone pain TECHNIQUE: Three views of the sacrum and coccyx. COMPARISON: None FINDINGS: Normal appearance of the SI joints. Degenerative changes at the pubic symphysis. Mild osteoarthrosis at the hip joints bilaterally. Severe degenerative changes involving lower lumbar spine. Sacrum and coccyx appear intact on lateral view. No acute fracture seen. IMPRESSION: 1. Degenerative changes. Report Dictated on Electronically Signed By: Paul Sehrman MD Electronically Signed Date/Time: 03/13/2024 5:04 PM EDT [facility] [employer] Radiology Study observation (narrative) [facility] XR Sacrum and Coccyx 2 Views Ordered By: Paul Sherman on 03-13-2024 [facility] Work Phone: MR Brain WO and W contrast I Mark Anthony 02-09-2024 [facility]ANS : 1940 [id number] Exam Date/Time: 02/07/2024 11:43 Procedure: MR BRAIN W AND WO CONTRAST Ordering Provider: CRUZ ANSON. Reason For Exam: h05.20 CLINICAL INDICATION: History of left visual changes. History of tumor resection in 2010.. TECHNIQUE: Multiplanar multisequence MR images of the brain and orbits were obtained before and after the intravenous administration of contrast. ml of . COMPARISON: None available RESULTS: MRI BRAIN: Study was not presented to me for interpretation until time of dictation on 02/09/2024. Mass/Skull base/orbits: Postoperative changes of left frontal craniotomy with fat packing of the left frontal sinus. T1 hypointense, T2 hyperintense, diffusion restricting avidly enhancing extra-axial dural based mass in the left middle cranial fossa along the greater wing of the sphenoid measuring at least 2.0 x 2.5 x 2.9 cm (TV X AP X CC) involving the greater wing of sphenoid, likely a meningioma. Extracranial extension into the left temporalis muscle as well as extension into the lateral extraconal orbital soft tissues is noted though difficult to measure. There is extensive dural thickening and enhancement particularly of the left frontal and temporal convexities measuring up to 0.7cm in thickness which is nonspecific though is likely related to mass. Component of postoperative dural thickening/enhancement is not excluded though thought less likely. Mass and dural thickening/enhancement extend into the orbital apex and into the posterior extraconal orbit, poorly assessed due to motion with potential effects on the left optic nerve poorly assessed. There is involvement of the left anterior clinoid and optic strut. Left sided exophthalmos is noted. The left cavernous sinus and Meckel's cave appear grossly intact. Foramen rotundum is poorly assessed due to motion. Mild mass effect on the adjacent inferior left frontal lobe and superior left temporal lobe with mild parenchymal T2/FLAIR hyperintensity in the left temporal lobe suggesting edema (series 6 images 11-13). An additional extra-axial dural based enhancing mass of the right anterior clinoid process measures 0.9 x 0.8 x 0.9 cm (TV X AP X CC), likely an additional meningioma without significant associated mass effect. Acute Change: There is no evidence of restricted diffusion to suggest an acute infarct. Hemorrhage: Scattered patchy areas of increased T2 and FLAIR signal are present in the supratentorial white matter which is a nonspecific finding but likely represents mild chronic microvascular ischemia. No evidence of prior parenchymal hemorrhage on the gradient echo images. Chronic Change: Postoperative changes of left frontal craniotomy with encephalomalacia in the left frontal lobe. Fat packing material in the left frontal sinus. Parenchyma: There is mild to moderate generalized parenchymal volume loss. Ventricles: Ventriculomegaly corresponds to the degree of parenchymal volume loss. Vasculature: Major intracranial arterial structures, and dural venous sinuses show typical flow void, suggesting patency by spin echo criteria. Other: Bilateral lens replacements. The remaining visualized paranasal sinuses and mastoid air cells are clear. [facility] Abisai Bhatia MD - 02/09/2024 [facility] : 1940 [id number] Exam Date/Time: 02/07/2024 11:43 Procedure: MR BRAIN W AND WO CONTRAST Ordering Provider: CRUZ ANSON. Reason For Exam: h05.20 CLINICAL INDICATION: History of left visual changes. History of tumor resection in 2010.. TECHNIQUE: Multiplanar multisequence MR images of the brain and orbits were obtained before and after the intravenous administration of contrast. ml of . COMPARISON: None available RESULTS: MRI BRAIN: Study was not presented to me for interpretation until time of dictation on 02/09/2024. Mass/Skull base/orbits: Postoperative changes of left frontal craniotomy with fat packing of the left frontal sinus. T1 hypointense, T2 hyperintense, diffusion restricting avidly enhancing extra-axial dural based mass in the left middle cranial fossa along the greater wing of the sphenoid measuring at least 2.0 x 2.5 x 2.9 cm (TV X AP X CC) involving the greater wing of sphenoid, likely a meningioma. Extracranial extension into the left temporalis muscle as well as extension into the lateral extraconal orbital soft tissues is noted though difficult to measure. There is extensive dural thickening and enhancement particularly of the left frontal and temporal convexities measuring up to 0.7cm in thickness which is nonspecific though is likely related to mass. Component of postoperative dural thickening/enhancement is not excluded though thought less likely. Mass and dural thickening/enhancement extend into the orbital apex and into the posterior extraconal orbit, poorly assessed due to motion with potential effects on the left optic nerve poorly assessed. There is involvement of the left anterior clinoid and optic strut. Left sided exophthalmos is noted. The left cavernous sinus and Meckel's cave appear grossly intact. Foramen rotundum is poorly assessed due to motion. Mild mass effect on the adjacent inferior left frontal lobe and superior left temporal lobe with mild parenchymal T2/FLAIR hyperintensity in the left temporal lobe suggesting edema (series 6 images 11-13). An additional extra-axial dural based enhancing mass of the right anterior clinoid process measures 0.9 x 0.8 x 0.9 cm (TV X AP X CC), likely an additional meningioma without significant associated mass effect. Acute Change: There is no evidence of restricted diffusion to suggest an acute infarct. Hemorrhage: Scattered patchy areas of increased T2 and FLAIR signal are present in the supratentorial white matter which is a nonspecific finding but likely represents mild chronic microvascular ischemia. No evidence of prior parenchymal hemorrhage on the gradient echo images. Chronic Change: Postoperative changes of left frontal craniotomy with encephalomalacia in the left frontal lobe. Fat packing material in the left frontal sinus. Parenchyma: There is mild to moderate generalized parenchymal volume loss. Ventricles: Ventriculomegaly corresponds to the degree of parenchymal volume loss. Vasculature: Major intracranial arterial structures, and dural venous sinuses show typical flow void, suggesting patency by spin echo criteria. Other: Bilateral lens replacements. The remaining visualized paranasal sinuses and mastoid air cells are clear. IMPRESSION: Left sphenoid wing mass, likely a meningioma with mild mass effect and mild signal changes of the left temporal lobe. Involvement of the left greater wing of the sphenoid wing with extension into left extraconal orbit as well as extension to the left orbital apex. Due to motion, affect on the optic nerve is poorly assessed. Left exophthalmos is noted. Extensive dural thickening and enhancement is nonspecific, though likely related to mass, either neoplastic (such as meningiomatosis) or reactive. See body of report for additional details. Neurosurgical evaluation is suggested. 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 Chronic parenchymal changes as discussed. COMMUNICATION: Notification of these findings was made to Dr. MARIO CRUZ via phone call on 02/09/2024 4:26 PM EDT. Report Dictated on Electronically Signed By: Abisai Bhatia MD Electronically Signed Date/Time: 02/09/2024 4:44 PM EDT [employer] MR Orbit and Face and Neck W O and W contrast Robby 02-09-2024 Patient Name: RESHMA EVANS : 1940 Exam Date/Time: 02/07/2024 11:30 Procedure: MR ORBIT FACE NECK W AND WO IV CONTRAST Ordering Provider: CRUZ ANSON. Reason For Exam: h05.20 CLINICAL INDICATION: History of left visual changes. History of tumor resection in 2010.. TECHNIQUE: Multiplanar multisequence MR images of the brain and orbits were obtained before and after the intravenous administration of contrast. ml of . COMPARISON: None available RESULTS: MRI BRAIN: Study was not presented to me for interpretation until time of dictation on 02/09/2024. Mass/Skull base/orbits: Postoperative changes of left frontal craniotomy with fat packing of the left frontal sinus. T1 hypointense, T2 hyperintense, diffusion restricting avidly enhancing extra-axial dural based mass in the left middle cranial fossa along the greater wing of the sphenoid measuring at least 2.0 x 2.5 x 2.9 cm (TV X AP X CC) involving the greater wing of sphenoid, likely a meningioma. Extracranial extension into the left temporalis muscle as well as extension into the lateral extraconal orbital soft tissues is noted though difficult to measure. There is extensive dural thickening and enhancement particularly of the left frontal and temporal convexities measuring up to 0.7cm in thickness which is nonspecific though is likely related to mass. Component of postoperative dural thickening/enhancement is not excluded though thought less likely. Mass and dural thickening/enhancement extend into the orbital apex and into the posterior extraconal orbit, poorly assessed due to motion with potential effects on the left optic nerve poorly assessed. There is involvement of the left anterior clinoid and optic strut. Left sided exophthalmos is noted. The left cavernous sinus and Meckel's cave appear grossly intact. Foramen rotundum is poorly assessed due to motion. Mild mass effect on the adjacent inferior left frontal lobe and superior left temporal lobe with mild parenchymal T2/FLAIR hyperintensity in the left temporal lobe suggesting edema (series 6 images 11-13). An additional extra-axial dural based enhancing mass of the right anterior clinoid process measures 0.9 x 0.8 x 0.9 cm (TV X AP X CC), likely an additional meningioma without significant associated mass effect. Acute Change: There is no evidence of restricted diffusion to suggest an acute infarct. Hemorrhage: Scattered patchy areas of increased T2 and FLAIR signal are present in the supratentorial white matter which is a nonspecific finding but likely represents mild chronic microvascular ischemia. No evidence of prior parenchymal hemorrhage on the gradient echo images. Chronic Change: Postoperative changes of left frontal craniotomy with encephalomalacia in the left frontal lobe. Fat packing material in the left frontal sinus. Parenchyma: There is mild to moderate generalized parenchymal volume loss. Ventricles: Ventriculomegaly corresponds to the degree of parenchymal volume loss. Vasculature: Major intracranial arterial structures, and dural venous sinuses show typical flow void, suggesting patency by spin echo criteria. Other: Bilateral lens replacements. The remaining visualized paranasal sinuses and mastoid air cells are clear. [facility] Abisai Bhatia MD - 02/09/2024 [facility] Name: [facility] : 1940 [id number] Exam Date/Time: 02/07/2024 11:30 Procedure: MR ORBIT FACE NECK W AND WO IV CONTRAST Ordering Provider: CRUZ ANSON. Reason For Exam: h05.20 CLINICAL INDICATION: History of left visual changes. History of tumor resection in 2010.. TECHNIQUE: Multiplanar multisequence MR images of the brain and orbits were obtained before and after the intravenous administration of contrast. ml of . COMPARISON: None available RESULTS: MRI BRAIN: Study was not presented to me for interpretation until time of dictation on 02/09/2024. Mass/Skull base/orbits: Postoperative changes of left frontal craniotomy with fat packing of the left frontal sinus. T1 hypointense, T2 hyperintense, diffusion restricting avidly enhancing extra-axial dural based mass in the left middle cranial fossa along the greater wing of the sphenoid measuring at least 2.0 x 2.5 x 2.9 cm (TV X AP X CC) involving the greater wing of sphenoid, likely a meningioma. Extracranial extension into the left temporalis muscle as well as extension into the lateral extraconal orbital soft tissues is noted though difficult to measure. There is extensive dural thickening and enhancement particularly of the left frontal and temporal convexities measuring up to 0.7cm in thickness which is nonspecific though is likely related to mass. Component of postoperative dural thickening/enhancement is not excluded though thought less likely. Mass and dural thickening/enhancement extend into the orbital apex and into the posterior extraconal orbit, poorly assessed due to motion with potential effects on the left optic nerve poorly assessed. There is involvement of the left anterior clinoid and optic strut. Left sided exophthalmos is noted. The left cavernous sinus and Meckel's cave appear grossly intact. Foramen rotundum is poorly assessed due to motion. Mild mass effect on the adjacent inferior left frontal lobe and superior left temporal lobe with mild parenchymal T2/FLAIR hyperintensity in the left temporal lobe suggesting edema (series 6 images 11-13). An additional extra-axial dural based enhancing mass of the right anterior clinoid process measures 0.9 x 0.8 x 0.9 cm (TV X AP X CC), likely an additional meningioma without significant associated mass effect. Acute Change: There is no evidence of restricted diffusion to suggest an acute infarct. Hemorrhage: Scattered patchy areas of increased T2 and FLAIR signal are present in the supratentorial white matter which is a nonspecific finding but likely represents mild chronic microvascular ischemia. No evidence of prior parenchymal hemorrhage on the gradient echo images. Chronic Change: Postoperative changes of left frontal craniotomy with encephalomalacia in the left frontal lobe. Fat packing material in the left frontal sinus. Parenchyma: There is mild to moderate generalized parenchymal volume loss. Ventricles: Ventriculomegaly corresponds to the degree of parenchymal volume loss. Vasculature: Major intracranial arterial structures, and dural venous sinuses show typical flow void, suggesting patency by spin echo criteria. Other: Bilateral lens replacements. The remaining visualized paranasal sinuses and mastoid air cells are clear. IMPRESSION: Left sphenoid wing mass, likely a meningioma with mild mass effect and mild signal changes of the left temporal lobe. Involvement of the left greater wing of the sphenoid wing with extension into left extraconal orbit as well as extension to the left orbital apex. Due to motion, affect on the optic nerve is poorly assessed. Left exophthalmos is noted. Extensive dural thickening and enhancement is nonspecific, though likely related to mass, either neoplastic (such as meningiomatosis) or reactive. See body of report for additional details. Neurosurgical evaluation is suggested. 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 Chronic parenchymal changes as discussed. COMMUNICATION: Notification of these findings was made to Dr. MARIO CRUZ via phone call on 02/09/2024 4:26 PM EDT. Report Dictated on Electronically Signed By: Abisai Bhatia MD Electronically Signed Date/Time: 02/09/2024 4:[address] [facility] No Panel Informationon 02-08 Left sphenoid wing mass, likely a meningioma with mild mass effect and mild signal changes of the left temporal lobe. Involvement of the left greater wing of the sphenoid wing with extension into left extraconal orbit as well as extension to the left orbital apex. Due to motion, affect on the optic nerve is poorly assessed. Left exophthalmos is noted. Extensive dural thickening and enhancement is nonspecific, though likely related to mass, either neoplastic (such as meningiomatosis) or reactive. See body of report for additional details. Neurosurgical evaluation is suggested. 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 Chronic parenchymal changes as discussed. COMMUNICATION: Notification of these findings was made to Dr. MARIO CRUZ via phone call on 02/09/2024 4:26 PM EDT. Report Dictated on Electronically Signed By: Abisai Bhatia MD Electronically Signed Date/Time: 02/09/2024 4:44 PM EDT [facility] No Panel InformationOrdered By: Aibsai Bhatia on 02-09-2024 [facility] [employer] Work Phone: MR Brain WO and W contrast I Von 02-07-2024 Radiology Study observation (narrative) [facility] MR Orbit and Face and Neck W O and W contrast Robby 02-07-2024 Radiology Study observation (narrative) [facility] AMB POC HEMOGLOBIN A1Con HbA1c (Bld) [Mass fraction] 5.9 % Abnormal - 5.7 % [facility] HbA1c (Bld) [Mass fraction]o n 01-02-2024 Interpretation and review of laboratory results Abnormal [facility] Radiology Study observation (narrative) [facility] CR Spine Lumbosacral 4+ View son 05-02-2020 CR Spine Lumbosacral 4+ Views Patient Name: RESHMA EVANS Diagnostic Radiology Exam Date/Time 05/01/2020 17:30:44 EDT Exam CR Spine Lumbosacral 4+ Views Ordering Physician ROBERT LU Accession Number [id number] CPT4 Codes 33946 () Reason For Exam lumbar radiculopathy Report LUMBAR SPINE, AP and LATERAL, WITH FLEXION AND EXTENSION: INDICATION: Low back pain COMPARISON: No previous studies are available for comparison. Frontal, lateral and flexion/extension lateral views of the lumbosacral spine were obtained. There are 5 typical lumbar vertebrae. The bone mineral density is normal. The vertebral body heights are within normal limits. Multilevel disc space narrowing is present with marginal spurring. No spondylolisthesis nor spondylolysis is seen. The facet joints are within normal limits. No fracture is noted. The paravertebral soft tissues are unremarkable. Dense atherosclerotic changes of the aorta and iliac arteries are noted. IMPRESSION: Arthritic changes. No instability. Report Dictated on Final Dictating Physician: DO JUNG ALFRED Signed Date and Time: 05/02/2020 2:33 pm Signed by: DO JUNG ALFRED Transcribed Date and Time: 05/02/2020 2:[address] [facility] EMG REPORTon 04-20-2020 José Marquez MD - 04/20/2020 10:57 AM EDT PATIENT: RESHMA EVANS DATE OF SERVICE: 04/20/2020 ORDER NUMBER: DATE OF : 1940 AGE: 79 ADMITTING PHYSICIAN: Robert Lu JR, MD ATTENDING PHYSICIAN: Robert Lu JR, MD DICTATING PHYSICIAN: José Marquez MD EMG REFERRING PHYSICIAN: Robert Lu Jr., M.D. TEST #: [id number] and 20-EMB-294. A REPORT OF NERVE CONDUCTION STUDIES AND ELECTROMYOGRAPHY OF BOTH LOWER EXTREMITIES LOCATION: Testing was conducted at [facility] as an outpatient. FINDINGS: Sensory nerve conduction studies disclosed normal response latencies and amplitudes in the sural and superficial peroneal nerves bilaterally. Motor nerve conduction studies disclosed a mildly reduced response amplitude and slightly slow conduction velocity in the right peroneal/fibular nerve. The distal latency in the right peroneal/fibular nerve was normal. Distal latencies, response amplitudes and conduction velocities were normal in the left peroneal/fibular and bilateral tibial nerves. F-waves were normal in the peroneal/fibular and tibial nerves bilaterally. The H-reflex was normal in the tibial nerve bilaterally. Needle EMG examination disclosed reduced insertional activity in the right abductor hallucis. Otherwise, spontaneous activity was normal in the vastus medialis and lateralis, tibialis anterior, medial and lateral gastrocnemius, peroneus longus, extensor hallucis longus, extensor digitorum brevis, abductor hallucis, and low lumbar and sacral paraspinal muscles bilaterally. Recruitment of motor unit potentials was moderately decreased in the left abductor hallucis and slightly decreased in the right abductor hallucis and bilateral peroneus longus, extensor hallucis longus and extensor digitorum brevis. The motor unit potentials were enlarged and sometimes polyphasic, primarily in the right extensor digitorum brevis and in the extensor hallucis longus bilaterally, but also to a lesser extent in the left extensor digitorum brevis, right lateral gastrocnemius, and bilateral peroneus longus and abductor hallucis. Motor unit potential recruitment and morphology were normal in all other muscles examined, except the paraspinal muscles where they were not assessed. 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 There was no evidence of ongoing denervation. There was no evidence of peripheral mononeuropathy or polyneuropathy. Please note that, due to anatomic considerations, the ability of this testing to detect sensory radiculopathies is very limited. Clinical correlation is advised. Alessia Job ID: [id number] DOD:04/20/2020 10:12 A ANÍBAL/al DOT:04/20/2020 10:57 A Job Number: [id number] Document Number: [id number] ###### cc: Robert Lu JR, MD [address] [facility] [address] [facility], [place] CR Hip w/ Pelvis 2 or 3 View s Righton 12-06-2019 CR Hip w/ Pelvis 2 or 3 Views Right Patient Name: RESHMA EVANS Diagnostic Radiology Exam Date/Time 12/06/2019 10:50:05 EDT Exam CR Hip w/ Pelvis 2 or 3 Views Right n Ordering Physician NELLY KAPLAN HOLLY S Accession Number [id number] CPT4 Codes 51223 () Reason For Exam chronic right hip pain Report CLINICAL INFORMATION: Chronic right hip pain. AP view of the pelvis and AP and frog-leg lateral views of both hips are provided. There are no comparison studies. FINDINGS: Moderate symmetric degenerative changes are noted about both hips. There is medial/axial joint space narrowing with sclerosis and osteophyte formation. There is no fracture or dislocation. The sacroiliac joints are symmetric bilaterally without focal abnormality. The bone mineralization is within normal limits. IMPRESSION: 1. Moderate symmetric degenerative changes. 2. No acute radiographic findings. Report Dictated on Workstation: [id number] Final Dictating Physician: MD DAMICO JEFFREY Signed Date and Time: 12/06/2019 12:46 pm Signed by: MD DAMICO JEFFREY Transcribed Date and Time: 12/06/2019 12:47 Normal [facility] XR HIP RIGHT (2-3 VIEWS)on 0 12-06-2019 Patient Name: RESHMA EVANS ---Diagnostic Radiology--- Exam Date/Time 12/06/2019 10:50:05 EDT Exam CR Hip w/ Pelvis 2 or 3 Views Right n Ordering Physician NELLY KAPLAN HOLLY S Accession Number [id number] CPT4 Codes 75698 () Reason For Exam chronic right hip pain Report CLINICAL INFORMATION: Chronic right hip pain. AP view of the pelvis and AP and frog-leg lateral views of both hips are provided. There are no comparison studies. FINDINGS: Moderate symmetric degenerative changes are noted about both hips. There is medial/axial joint space narrowing with sclerosis and osteophyte formation. There is no fracture or dislocation. The sacroiliac joints are symmetric bilaterally without focal abnormality. The bone mineralization is within normal limits. IMPRESSION: 1. Moderate symmetric degenerative changes. 2. No acute radiographic findings. Report Dictated on --- Final --- Dictating Physician: MD DAMICO JEFFREY Signed Date and Time: 12/06/2019 12:46 pm Signed by: MD DAMICO JEFFREY Transcribed Date and Time: 12/06/2019 12:47 [place], [place] [facility] Incoming Rad[facility] Results From [facility] - 12/06/2019 12:47 PM EDT Patient Name: RESHMA EVANS ---Diagnostic Radiology--- Exam Date/Time 12/06/2019 10:50:05 EDT Exam CR Hip w/ Pelvis 2 or 3 Views Right n Ordering Physician NELLY KAPLAN HOLLY S Accession Number [id number] CPT4 Codes 02195 () Reason For Exam chronic right hip pain Report CLINICAL INFORMATION: Chronic right hip pain. AP view of the pelvis and AP and frog-leg lateral views of both hips are provided. There are no comparison studies. FINDINGS: Moderate symmetric degenerative changes are noted about both hips. There is medial/axial joint space narrowing with sclerosis and osteophyte formation. There is no fracture or dislocation. The sacroiliac joints are symmetric bilaterally without focal abnormality. The bone mineralization is within normal limits. IMPRESSION: 1. Moderate symmetric degenerative changes. 2. No acute radiographic findings. Report Dictated on --- Final --- Dictating Physician: MD DAMICO JEFFREY Signed Date and Time: 12/06/2019 12:46 pm Signed by: MD DAMICO JEFFREY Transcribed Date and Time: 12/06/2019 12:47 [place], [place] Vital Signs Date Time Vital Sign Value Performing Clinician Facility 03-24-2025 10:51-0400 Body mass index (BMI) [Ratio] 28.82 kg/m2 Lashaun Bridenthal [employer] Work Phone: [facility] [employer] 03-24-2025 10:51-0400 Body temperature 99 [degF] Lashaun Bridenthal [employer] Work Phone: [facility] [employer] 03-24-2025 10:51-0400 Body weight 83.46 kg Lashaun Bridenthal [employer] Work Phone: [facility] [employer] 03-24-2025 10:51-0400 Diastolic blood pressure 67 mm[Hg] Lashaun Bridenthal [employer] Work Phone: [facility] [employer] 03-24-2025 10:51-0400 Heart rate 90 /min Lashaun Bridenthal [employer] Work Phone: [facility] [employer] 03-24-2025 10:51-0400 Respiratory rate 24 /min Lashaun Bridenthal [employer] Work Phone: [facility] [employer] 03-24-2025 10:51-0400 SaO2% (BldA) [Mass fraction] 92 % Lashaun Bridenthal [employer] Work Phone: [facility] 03-24-2025 10:51-0400 Systolic blood pressure 116 mm[Hg] Lashaun Bridenthal [employer] Work Phone: [facility] 02-25-2025 10:55-0400 Body temperature 98.8 [degF] Linda Mckeon MD Work Phone: [facility] 02-25-2025 10:55-0400 Diastolic blood pressure 66 mm[Hg] Linda Mckeon MD Work Phone: [facility] 02-25-2025 10:55-0400 Heart rate 75 /min Linda Mckeon MD Work Phone: [facility] 02-25-2025 10:55-0400 SaO2% (BldA) [Mass fraction] 95 % Linda Mckeon MD Work Phone: [facility] 02-25-2025 10:55-0400 Systolic blood pressure 100 mm[Hg] Linda Mckeon MD Work Phone: [facility] 02-19-2025 10:45-0400 Body temperature 99 [degF] Linda Mckeon MD Work Phone: [facility] 02-19-2025 10:45-0400 Diastolic blood pressure 80 mm[Hg] Linda Mckeon MD Work Phone: [facility] 02-19-2025 10:45-0400 Heart rate 84 /min Linda Mckeon MD Work Phone: [facility] 02-19-2025 10:45-0400 Respiratory rate 18 /min Linda Mckeon MD Work Phone: [facility] 02-19-2025 10:45-0400 SaO2% (BldA) [Mass fraction] 95 % Linda Mckeon MD Work Phone: [facility] 02-19-2025 10:45-0400 Systolic blood pressure 125 mm[Hg] Linda Mckeon MD Work Phone: [facility] 02-04-2025 10:42-0400 Body temperature 99 [degF] Linda Mckeon MD Work Phone: [facility] 02-04-2025 10:42-0400 Diastolic blood pressure 74 mm[Hg] Linda Mckeon MD Work Phone: [facility] 02-04-2025 10:42-0400 Heart rate 85 /min Linda Mckeon MD Work Phone: [facility] 02-04-2025 10:42-0400 Respiratory rate 16 /min Linda Mckeon MD Work Phone: [facility] 02-04-2025 10:42-0400 SaO2% (BldA) [Mass fraction] 99 % Linda Mckeon MD Work Phone: [facility] 02-04-2025 10:42-0400 Systolic blood pressure 115 mm[Hg] Linda Mckeon MD Work Phone: [facility] 01-28-2025 10:45-0400 Body temperature 99 [degF] Linda Mckeon MD Work Phone: [facility] 01-28-2025 10:45-0400 Diastolic blood pressure 79 mm[Hg] Linda Mckeon MD Work Phone: [facility] 01-28-2025 10:45-0400 Heart rate 65 /min Linda Mckeon MD Work Phone: [facility] 01-28-2025 10:45-0400 SaO2% (BldA) [Mass fraction] 96 % Linda Mckeon MD Work Phone: [facility] 01-28-2025 10:45-0400 Systolic blood pressure 149 mm[Hg] Linda Mckeon MD Work Phone: [facility] 01-22-2025 10:35-0400 Body temperature 99.9 [degF] Linda Mckeon MD Work Phone: [facility] 01-22-2025 10:35-0400 Diastolic blood pressure 83 mm[Hg] Linda Mckeon MD Work Phone: [facility] 01-22-2025 10:35-0400 Heart rate 63 /min Linda Mckeon MD Work Phone: [facility] 01-22-2025 10:35-0400 Respiratory rate 18 /min Linda Mckeon MD Work Phone: [facility] 01-22-2025 10:35-0400 SaO2% (BldA) [Mass fraction] 96 % Linda Mckeon MD Work Phone: [facility] 01-22-2025 10:35-0400 Systolic blood pressure 145 mm[Hg] Linda Mckeon MD Work Phone: [facility] 01-21-2025 11:18-0400 Body mass index (BMI) [Ratio] 30.57 kg/m2 Neymar Jeronimo MD Work Phone: [facility] 01-21-2025 11:18-0400 Body weight 85.9 kg Neymar Jeronimo MD Work Phone: [facility] 01-21-2025 11:18-0400 Diastolic blood pressure 79 mm[Hg] Neymar Jeronimo MD Work Phone: [facility] 01-21-2025 11:18-0400 Heart rate 59 /min Neymar Jeronimo MD Work Phone: [facility] 01-21-2025 11:18-0400 Respiratory rate 16 /min Neymar Jeronimo MD Work Phone: [facility] 01-21-2025 11:18-0400 SaO2% (BldA) [Mass fraction] 97 % Neymar Jeronimo MD Work Phone: [facility] 01-21-2025 11:18-0400 Systolic blood pressure 119 mm[Hg] Neymar Jeronimo MD Work Phone: [facility] 01-16-2025 09:37-0400 Diastolic blood pressure 80 mm[Hg] Gerald Cline MD Work Phone: [facility] 01-16-2025 09:37-0400 Heart rate 73 /min Gerald Cline MD Work Phone: [facility] 01-16-2025 09:37-0400 Systolic blood pressure 128 mm[Hg] Gerald Cline MD Work Phone: [facility] 01-16-2025 09:35-0400 Body mass index (BMI) [Ratio] 27.6 kg/m2 Gerald Cline MD Work Phone: [facility] 01-16-2025 09:35-0400 Body weight 77.56 kg Gerald Cline MD Work Phone: [facility] 01-16-2025 09:35-0400 Respiratory rate 16 /min Gerald Cline MD Work Phone: [facility] 12-26-2024 09:33-0400 Body mass index (BMI) [Ratio] 30.18 kg/m2 Linda Mckeon MD Work Phone: [facility] 12-26-2024 09:33-0400 Body temperature 98.1 [degF] Linda Mckeon MD Work Phone: [facility] 12-26-2024 09:33-0400 Body weight 84.82 kg Linda Mckeon MD Work Phone: [facility] 12-26-2024 09:33-0400 Diastolic blood pressure 6 mm[Hg] Linda Mckeon MD Work Phone: [facility] 12-26-2024 09:33-0400 Heart rate 70 /min Linda Mckeon MD Work Phone: [facility] 12-26-2024 09:33-0400 Respiratory rate 14 /min Linda Mckeon MD Work Phone: [facility] 12-26-2024 09:33-0400 SaO2% (BldA) [Mass fraction] 97 % Linda Mckeon MD Work Phone: [facility] 12-26-2024 09:33-0400 Systolic blood pressure 123 mm[Hg] Linda Mckeon MD Work Phone: [facility] 12-06-2024 08:53-0400 Diastolic blood pressure 72 mm[Hg] [employer] Work Phone: [facility] 12-06-2024 08:53-0400 Heart rate 65 /min [employer] Work Phone: [facility] 12-06-2024 08:53-0400 Respiratory rate 14 /min [employer] Work Phone: [facility] 12-06-2024 08:53-0400 SaO2% (BldA) [Mass fraction] 97 % [employer] Work Phone: [facility] 12-06-2024 08:53-0400 Systolic blood pressure 161 mm[Hg] [employer] Work Phone: [facility] 11-04-2024 12:46-0400 Diastolic blood pressure 84 mm[Hg] Neymar Jeronimo MD Work Phone: [facility] Comment on above: re-check 11-04-2024 12:46-0400 Systolic blood pressure 138 mm[Hg] Neymar Jeronimo MD Work Phone: [facility] Comment on above: re-check 11-04-2024 11:46-0400 Body height 167.6 cm Neymar Jeronimo MD Work Phone: [facility] 11-04-2024 11:46-0400 Body mass index (BMI) [Ratio] 29.61 kg/m2 Neymar Jeronimo MD Work Phone: [facility] 11-04-2024 11:46-0400 Body weight 83.2 kg Neymar Jeronimo MD Work Phone: [facility] 11-04-2024 11:46-0400 Heart rate 60 /min Neymar Jeronimo MD Work Phone: [facility] 11-04-2024 11:46-0400 Respiratory rate 16 /min Neymar Jeronimo MD Work Phone: [facility] 11-04-2024 11:46-0400 SaO2% (BldA) [Mass fraction] 98 % Neymar Jeronimo MD Work Phone: [facility] 08-01-2024 10:57-0500 Body mass index (BMI) [Ratio] 29.32 kg/m2 Neymar Jeronimo MD Work Phone: [facility] 08-01-2024 10:57-0500 Body weight 82.4 kg Neymar Jeronimo MD Work Phone: [facility] 08-01-2024 10:57-0500 Diastolic blood pressure 93 mm[Hg] Neymar Jeronimo MD Work Phone: [facility] 08-01-2024 10:57-0500 Heart rate 60 /min Neymar Jeronimo MD Work Phone: [facility] 08-01-2024 10:57-0500 Respiratory rate 16 /min Neymar Jeronimo MD Work Phone: [facility] 08-01-2024 10:57-0500 SaO2% (BldA) [Mass fraction] 98 % Neymar Jeronimo MD Work Phone: [facility] 08-01-2024 10:57-0500 Systolic blood pressure 162 mm[Hg] Neymar Jeronimo MD Work Phone: [facility] 08-01-2024 10:48-0500 Body mass index (BMI) [Ratio] 29.32 kg/m2 Tracy Barcenas MD Work Phone: [facility] 08-01-2024 10:48-0500 Body weight 82.4 kg Tracy Barcenas MD Work Phone: [facility] 08-01-2024 10:48-0500 Diastolic blood pressure 93 mm[Hg] Tracy Barcenas MD Work Phone: [facility] 08-01-2024 10:48-0500 Heart rate 60 /min Tracy Barcenas MD Work Phone: [facility] 08-01-2024 10:48-0500 Respiratory rate 16 /min Tracy Barcenas MD Work Phone: [facility] 08-01-2024 10:48-0500 SaO2% (BldA) [Mass fraction] 98 % Tracy Barcenas MD Work Phone: [facility] 08-01-2024 10:48-0500 Systolic blood pressure 162 mm[Hg] Tracy Barcenas MD Work Phone: [facility] 07-23-2024 09:53-0500 Diastolic blood pressure 81 mm[Hg] Schedule [facility] 07-23-2024 09:53-0500 Heart rate 64 /min Schedule [facility] 07-23-2024 09:53-0500 Systolic blood pressure 126 mm[Hg] Schedule [facility] [employer] 07-04-2024 11:08-0500 Body height 167.6 cm Gerald Cline MD Work Phone: [facility] 07-04-2024 11:08-0500 Body mass index (BMI) [Ratio] 27.6 kg/m2 Gerald Cline MD Work Phone: [facility] 07-04-2024 11:08-0500 Body weight 77.56 kg Gerald Cline MD Work Phone: [facility] 07-04-2024 11:08-0500 Diastolic blood pressure 85 mm[Hg] Gerald Cline MD Work Phone: [facility] 07-04-2024 11:08-0500 Heart rate 76 /min Gerald Cline MD Work Phone: [facility] 07-04-2024 11:08-0500 Respiratory rate 16 /min Gerald Cline MD Work Phone: [facility] 07-04-2024 11:08-0500 Systolic blood pressure 149 mm[Hg] Gerald Cline MD Work Phone: [facility] 06-21-2024 08:50-0500 Body height 170.2 cm Zoë Kaplan [employer] Work Phone: [facility] [employer] 06-21-2024 08:50-0500 Body mass index (BMI) [Ratio] 27.25 kg/m2 Zoë Kaplan APRN - [employer]CTOR Work Phone: [facility] [employer] 06-21-2024 08:50-0500 Body weight 78.93 kg Zoë Kaplan [employer]EL[employer] - [employer] Work Phone: [facility] [employer] 06-21-2024 08:50-0500 Diastolic blood pressure 82 mm[Hg] Zoë Kaplan [employer]EL[employer] - [employer] Work Phone: [facility] [employer] 06-21-2024 08:50-0500 Heart rate 71 /min Zoë Kaplan [employer]EL[employer] - [employer] Work Phone: [facility] [employer] 06-21-2024 08:50-0500 SaO2% (BldA) [Mass fraction] 98 % Zoë Kaplan [employer] - [employer] Work Phone: [facility] [employer] 06-21-2024 08:50-0500 Systolic blood pressure 130 mm[Hg] Zoë Kaplan [employer] - [employer] Work Phone: [facility] [employer] 05-27-2024 08:43-0500 Body height 170.2 cm Zoë Kaplan [employer]OVELER - [employer] Work Phone: [facility] [employer] 05-27-2024 08:43-0500 Body mass index (BMI) [Ratio] 26.78 kg/m2 Zoë Kaplan [employer]ER - [employer] Work Phone: [facility] [employer] 05-27-2024 08:43-0500 Body weight 77.56 kg Zoë Kaplan [employer] - [employer] Work Phone: [facility] [employer] 05-27-2024 08:43-0500 Diastolic blood pressure 82 mm[Hg] Zoë Kaplan [employer]ELER - [employer] Work Phone: [facility] [employer] 05-27-2024 08:43-0500 Heart rate 78 /min Zoë Kaplan SHOVELER - [employer]CTOR Work Phone: [facility] [employer] 05-27-2024 08:43-0500 SaO2% (BldA) [Mass fraction] 98 % Zoë Kaplan [employer]ELER - [employer] Work Phone: [facility] [employer] 05-27-2024 08:43-0500 Systolic blood pressure 122 mm[Hg] Zoë Kaplan [employer]ELER - [employer] Work Phone: [facility] 05-20-2024 13:57-0500 Body height 167.6 cm Neymar Jeronimo MD Work Phone: [facility] 05-20-2024 13:57-0500 Body mass index (BMI) [Ratio] 28.57 kg/m2 Neymar Jeronimo MD Work Phone: [facility] 05-20-2024 13:57-0500 Body weight 80.29 kg Neymar Jeronimo MD Work Phone: [facility] 05-20-2024 13:57-0500 Diastolic blood pressure 79 mm[Hg] Neymar Jeronimo MD Work Phone: [facility] 05-20-2024 13:57-0500 Heart rate 71 /min Neymar Jeronimo MD Work Phone: [facility] 05-20-2024 13:57-0500 SaO2% (BldA) [Mass fraction] 97 % Neymar Jeronimo MD Work Phone: [facility] 05-20-2024 13:57-0500 Systolic blood pressure 136 mm[Hg] Neymar Jeronimo MD Work Phone: [facility] 04-18-2024 10:47-0400 Body height 167.6 cm [facility] 2 [facility] 04-18-2024 10:47-0400 Body mass index (BMI) [Ratio] 28.25 kg/m2 [facility] 2 [facility] 04-18-2024 10:47-0400 Body temperature 97.2 [degF] [address] 04-18-2024 10:47-0400 Body weight 79.38 kg [facility] 2 [facility] 04-18-2024 10:47-0400 Diastolic blood pressure 71 mm[Hg] [facility] 2 [facility] 04-18-2024 10:47-0400 Heart rate 81 /min [facility] 2 [facility] 04-18-2024 10:47-0400 Respiratory rate 16 /min [facility] 04-18-2024 10:47-0400 SaO2% (BldA) [Mass fraction] 100 % [facility] 2 [facility] 04-18-2024 10:47-0400 Systolic blood pressure 109 mm[Hg] [facility] 2 [facility] 04-15-2024 10:57-0400 Body height 170.2 cm Zoë Kaplan APRN - [employer] Work Phone: [facility] [employer] 04-15-2024 10:57-0400 Body mass index (BMI) [Ratio] 27.28 kg/m2 Zoë Kaplan APRN - [employer] Work Phone: [employer] 04-15-2024 10:57-0400 Body weight 79.02 kg Zoë Kaplan SHOVELER - [employer] Work Phone: [employer] 04-15-2024 10:57-0400 Diastolic blood pressure 64 mm[Hg] Zoë Kaplan SHOVELER - [employer]CTOR Work Phone: [employer] 04-15-2024 10:57-0400 Heart rate 67 /min Zoë Kaplan SHOVELER - [employer]CTOR Work Phone: [employer] 04-15-2024 10:57-0400 SaO2% (BldA) [Mass fraction] 97 % Zoë Kaplan SH[employer]ELER - [employer] Work Phone: [facility] [employer] 04-15-2024 10:57-0400 Systolic blood pressure 112 mm[Hg] Zoë Kaplan SHOVELER - [employer]CTOR Work Phone: [facility] [employer] 04-08-2024 13:33-0400 Body height 170.2 cm Zoë Kaplan SH[employer]ELER - [employer] Work Phone: [employer] 04-08-2024 13:33-0400 Body mass index (BMI) [Ratio] 27.13 kg/m2 Zoë Kaplan SHOVELER - [employer] Work Phone: [employer] 04-08-2024 13:33-0400 Body weight 78.56 kg Zoë aKplan SHOVELER - [employer] IN[employer]CTOR Work Phone: [employer] 04-08-2024 13:33-0400 Diastolic blood pressure 84 mm[Hg] Zoë Kaplan SHOVELER - [employer]CTOR Work Phone: [employer] 04-08-2024 13:33-0400 Heart rate 71 /min Zoë Kaplan SHOVELER - [employer]CTOR Work Phone: [employer] 04-08-2024 13:33-0400 SaO2% (BldA) [Mass fraction] 97 % Zoë Kaplan SH[employer]ELER - [employer] Work Phone: [employer] 04-08-2024 13:33-0400 Systolic blood pressure 124 mm[Hg] Zoë Kaplan SHOVELER - [employer]CTOR Work Phone: [facility] 04-04-2024 09:55-0400 Body height 170.2 cm Neymar Jeronimo MD Work Phone: [facility] 04-04-2024 09:55-0400 Body mass index (BMI) [Ratio] 27.55 kg/m2 Neymar Jeronimo MD Work Phone: [facility] 04-04-2024 09:55-0400 Body weight 79.8 kg Neymar Jeronimo MD Work Phone: [facility] 04-04-2024 09:55-0400 Diastolic blood pressure 80 mm[Hg] Neymar Jeronimo MD Work Phone: [facility] 04-04-2024 09:55-0400 Heart rate 69 /min Neymar Jeronimo MD Work Phone: [facility] 04-04-2024 09:55-0400 Respiratory rate 16 /min Neymar Jeronimo MD Work Phone: [facility] 04-04-2024 09:55-0400 SaO2% (BldA) [Mass fraction] 98 % Neymar Jeronimo MD Work Phone: [facility] 04-04-2024 09:55-0400 Systolic blood pressure 160 mm[Hg] Neymar Jeronimo MD Work Phone: [facility] 02-19-2024 14:11-0400 Body mass index (BMI) [Ratio] 27.76 kg/m2 Neymar Jeronimo MD Work Phone: [facility] 02-19-2024 14:11-0400 Body weight 80.4 kg Neymar Jeronimo MD Work Phone: [facility] 02-19-2024 14:11-0400 Diastolic blood pressure 77 mm[Hg] Neymar Jeronimo MD Work Phone: [facility] 02-19-2024 14:11-0400 Heart rate 60 /min Neymar Jeronimo MD Work Phone: [facility] 02-19-2024 14:11-0400 Respiratory rate 16 /min Neymar Jeronimo MD Work Phone: [facility] 02-19-2024 14:11-0400 SaO2% (BldA) [Mass fraction] 99 % Neymar Jeronimo MD Work Phone: [facility] 02-19-2024 14:11-0400 Systolic blood pressure 119 mm[Hg] Neymar Jeronimo MD Work Phone: [facility] 02-12-2024 13:07-0400 Body height 170.2 cm Rachid Neville MD Work Phone: [facility] [employer] 02-12-2024 13:07-0400 Body mass index (BMI) [Ratio] 27.63 kg/m2 Rachid Neville MD Work Phone: [employer] 02-12-2024 13:07-0400 Body weight 80.02 kg Rachid Neville MD Work Phone: [employer] 02-12-2024 13:07-0400 Diastolic blood pressure 69 mm[Hg] Rachid Neville MD Work Phone: [employer] 02-12-2024 13:07-0400 Heart rate 61 /min Rachid Neville MD Work Phone: [employer] 02-12-2024 13:07-0400 SaO2% (BldA) [Mass fraction] 96 % Rachid Neville MD Work Phone: [employer] 02-12-2024 13:07-0400 Systolic blood pressure 116 mm[Hg] Rachid Neville MD Work Phone: [employer] 01-02-2024 11:35-0400 Body height 167.6 cm Rachid Neville MD Work Phone: [employer] 01-02-2024 11:35-0400 Body mass index (BMI) [Ratio] 29.02 kg/m2 Rachid Neville MD Work Phone: [facility] [employer] 01-02-2024 11:35-0400 Body weight 81.56 kg Rachid Neville MD Work Phone: [facility] [employer] 01-02-2024 11:35-0400 Diastolic blood pressure 72 mm[Hg] Rachid Neville MD Work Phone: [facility] [employer] 01-02-2024 11:35-0400 Heart rate 85 /min Rachid Neville MD Work Phone: [facility] [employer] 01-02-2024 11:35-0400 SaO2% (BldA) [Mass fraction] 97 % Rachid Neville MD Work Phone: [facility] [employer] 01-02-2024 11:35-0400 Systolic blood pressure 134 mm[Hg] Rachid Neville MD Work Phone: [facility] [employer] 08-23-2023 11:17-0500 Body mass index (BMI) [Ratio] 30.51 kg/m2 Lashaun Bridenthal [employer] Work Phone: [facility] [employer] 08-23-2023 11:17-0500 Body temperature 96.91 [degF] Lashaun Bridenthal [employer] - [employer] Work Phone: [facility] [employer] 08-23-2023 11:17-0500 Body weight 85.73 kg Lashaun Bridenthal [employer] - [employer] Work Phone: [facility] [employer] 08-23-2023 11:17-0500 Diastolic blood pressure 83 mm[Hg] Lashaun Bridenthal [employer] - [employer] Work Phone: [facility] [employer] 08-23-2023 11:17-0500 Heart rate 71 /min Lashaun Bridenthal [employer] - [employer] Work Phone: [facility] [employer] 08-23-2023 11:17-0500 Respiratory rate 18 /min Lashaun Bridenthal [employer]ER - [employer] Work Phone: [employer] 08-23-2023 11:17-0500 SaO2% (BldA) [Mass fraction] 94 % Lashaun Spivey [employer] - [employer] Work Phone: [employer] 08-23-2023 11:17-0500 Systolic blood pressure 137 mm[Hg] Lashaun Spivey [employer] - [employer] Work Phone: [employer] 06-27-2023 14:12-0500 Body height 167.6 cm Rachid Neville MD Work Phone: [employer] 06-27-2023 14:12-0500 Body mass index (BMI) [Ratio] 30.6 kg/m2 Rachid Neville MD Work Phone: [employer] 06-27-2023 14:12-0500 Body weight 86 kg Rachid Neville MD Work Phone: [employer] 06-27-2023 14:12-0500 Diastolic blood pressure 61 mm[Hg] Rachid Neville MD Work Phone: [employer] 06-27-2023 14:12-0500 Heart rate 96 /min Rachid Neville MD Work Phone: [employer] 06-27-2023 14:12-0500 SaO2% (BldA) [Mass fraction] 96 % Rachid Neville MD Work Phone: [employer] 06-27-2023 14:12-0500 Systolic blood pressure 104 mm[Hg] Rachid Neville MD Work Phone: [employer] 04-24-2023 09:41-0400 Body height 167.6 cm Zoë Kaplan [employer] Work Phone: [employer] 04-24-2023 09:41-0400 Body mass index (BMI) [Ratio] 30.15 kg/m2 Zoë Kaplan [employer] Work Phone: [employer] 04-24-2023 09:41-0400 Body temperature 97.3 [degF] Zoë Eusebio [employer]ELER - [employer] Work Phone: [employer] 04-24-2023 09:41-0400 Body weight 84.73 kg Zoë Kaplan [employer] - [employer] Work Phone: [employer] 04-24-2023 09:41-0400 Diastolic blood pressure 78 mm[Hg] Zoë Kaplan [employer]ER - [employer] Work Phone: [employer] 04-24-2023 09:41-0400 Heart rate 64 /min Zoë Kaplan [employer]ELER - [employer] Work Phone: [employer] 04-24-2023 09:41-0400 Respiratory rate 24 /min Zoë Kaplan [employer]ER - [employer] Work Phone: [employer] 04-24-2023 09:41-0400 SaO2% (BldA) [Mass fraction] 94 % Zoë Kaplan [employer] - [employer] Work Phone: [employer] 04-24-2023 09:41-0400 Systolic blood pressure 124 mm[Hg] Zoë Kaplan [employer] - [employer] Work Phone: [employer] 10-24-2022 10:45-0400 Body height 167.6 cm Zoë Kaplan [employer] - [employer] Work Phone: [employer] 10-24-2022 10:45-0400 Body mass index (BMI) [Ratio] 29.38 kg/m2 Zoë Kaplan [employer] - [employer] Work Phone: [employer] 10-24-2022 10:45-0400 Body weight 82.56 kg Zoë Kaplan [employer] - [employer] Work Phone: [employer] 10-24-2022 10:45-0400 Diastolic blood pressure 74 mm[Hg] Zoë Kaplan SHOVELER - OUTDOOR ADVENTURE INSTRUCTOR Work Phone: [employer] 10-24-2022 10:45-0400 Heart rate 63 /min Zoë Kaplan SHOVELER - OUTDOOR ADVENTURE INSTRUCTOR Work Phone: [employer] 10-24-2022 10:45-0400 SaO2% (BldA) [Mass fraction] 98 % Zoë Kaplan SHOVELER - OUTDOOR ADVENTURE INSTRUCTOR Work Phone: [facility] [employer] 10-24-2022 10:45-0400 Systolic blood pressure 120 mm[Hg] Zoë Kaplan SHOVELER - OUTDOOR ADVENTURE INSTRUCTOR Work Phone: [facility] [employer] Encounters Encounter Date Encounter Type Care Provider Facility Start: 04-02-2025 End: 04-02-2025 ambulatory LINDA MCKEON Facility:[facility] Start: 04-01-2025 End: 04-01-2025 ambulatory NEYMAR JERONIMO Facility:[facility] Start: 03-28-2025 End: 03-28-2025 ambulatory UNKNOWN PROVIDER Facility:[facility] Start: 03-26-2025 End: 03-26-2025 ambulatory [facility] Facility:[facility] Start: 03-25-2025 End: 03-25-2025 Follow-up encounter Rachid Neville MD Work Phone: [facility] Comment on above: Comprehensive metabo lic panel, CBC auto differential, TSH, Hemoglobin A1c Start: 03-25-2025 End: 03-25-2025 Telephone encounter Neymar Jeronimo MD Work Phone: [facility] Comment on above: 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 ther Start: 03-24-2025 End: 03-24-2025 [facility] Start: 03-24-2025 End: 03-24-2025 ambulatory [facility] Start: 03-24-2025 End: 03-24-2025 Office outpatient visit 15 minutes Lashaunabhijeet Spivey SHOVELER - OUTDOOR ADVENTURE INSTRUCTOR Work Phone: [facility] Comment on above: Weakness of both leg s (Primary Dx); Type 2 diabetes mellitus with hyperlipidemia (HCC) ; Neuropathy Start: 03-24-2025 End: 03-24-2025 Office outpatient visit 25 minutes Lashaun Danni SHOVELER - OUTDOOR ADVENTURE INSTRUCTOR Work Phone: [facility] Comment on above: Weakness of both leg s (Primary Dx); Type 2 diabetes mellitus with hyperlipidemia (HCC) ; Neuropathy Start: 02-25-2025 End: 03-05-2025 Radiation Oncology Note Linda Mckeon MD Work Phone: Radiation Oncology Comment on above: Completion Note Start: 02-25-2025 End: 03-05-2025 Patient encounter procedure Linda Mckeon MD Work Phone: Radiation Oncology Comment on above: Intracranial meningi samantha (HCC) (Primary Dx) Start: 02-25-2025 End: 02-25-2025 ambulatory Linda Mckeon MD Work Phone: Radiation Oncology Comment on above: Patient Education Start: 02-24-2025 End: 02-24-2025 ambulatory LINDA MCKEON Facility:[facility] Start: 02-21-2025 End: 02-21-2025 ambulatory LINDA MCKEON Facility:[facility] Start: 02-20-2025 End: 02-20-2025 [facility] Start: 02-19-2025 End: 02-19-2025 Patient encounter procedure Linda Mckeon MD Work Phone: Radiation Oncology Comment on above: Intracranial meningi samantha (HCC) (Primary Dx) Start: 02-19-2025 End: 02-19-2025 ambulatory LINDA MCKEON Facility:[facility] Start: 02-18-2025 End: 02-18-2025 ambulatory LINDA MCKEON Facility:[facility] Start: 02-17-2025 End: 02-17-2025 ambulatory [facility] Start: 02-14-2025 End: 02-14-2025 ambulatory [facility] Facility[facility] Start: 02-13-2025 End: 02-13-2025 ambulatory [facility] Facility[facility] Start: 02-12-2025 End: 02-12-2025 ambulatory LINDA MCKEON Facility:[facility] Start: 02-11-2025 End: 02-11-2025 ambulatory LINDA MCKEON Facility:[facility] Start: 02-10-2025 End: 02-10-2025 ambulatory Zoë BUSBY Work Phone: [facility] Start: 02-10-2025 End: 02-10-2025 ambulatory DAESUNG MIKE Facility:[facility] Start: 02-07-2025 End: 02-07-2025 ambulatory DAUNG MIKE Facility:[facility] Start: 02-06-2025 End: 02-06-2025 ambulatory DAUNG MIKE Facility:[facility] Start: 02-05-2025 End: 02-05-2025 [facility] Start: 02-04-2025 End: 02-04-2025 Patient encounter procedure Linda Mckeon MD Work Phone: Radiation Oncology Comment on above: Intracranial meningi samantha (HCC) (Primary Dx) Start: 02-04-2025 End: 02-04-2025 [facility] Start: 02-03-2025 End: 02-03-2025 [facility] Start: 01-31-2025 End: 01-31-2025 ambulatory [facility] Facility:[facility] Start: 01-30-2025 End: 01-30-2025 ambulatory [facility] Facility:[facility] Start: 01-29-2025 End: 01-29-2025 [facility] Start: 01-28-2025 End: 01-28-2025 Patient encounter procedure Linda Mckeon MD Work Phone: Radiation Oncology Comment on above: Intracranial meningi samantha (HCC) (Primary Dx) Start: 01-28-2025 End: 01-28-2025 ambulatory DAUNG MIKE Facility:[facility] Start: 01-27-2025 End: 01-27-2025 [facility] Start: 01-24-2025 End: 01-24-2025 ambulatory DAUNG MIKE Facility:[facility] Start: 01-23-2025 End: 01-23-2025 ambulatory [facility] Facility:[facility] Start: 01-22-2025 End: 01-22-2025 Patient encounter procedure Linda Mckeon MD Work Phone: Radiation Oncology Comment on above: Intracranial meningi samantha (HCC) (Primary Dx) Start: 01-22-2025 End: 01-22-2025 ambulatory LINDA MCKEON Facility:[facility] Start: 01-21-2025 End: 01-21-2025 Postop follow up visit related to original px Neymar Jeronimo MD Work Phone: [facility] Comment on above: Intracranial meningi samantha (HCC) (Primary Dx); Essential tremor Start: 01-21-2025 End: 01-21-2025 ambulatory NEYMAR JERONIMO Facility:[facility] Start: 01-21-2025 End: 01-21-2025 ambulatory LINDA MCKEON Facility:[facility] Start: 01-20-2025 End: 01-20-2025 ambulatory LINDA MCKEON Facility:[facility] Start: 01-17-2025 End: 01-17-2025 ambulatory LINDA MCKEON Facility:[facility] Start: 01-16-2025 End: 01-16-2025 Subsequent hospital visit by physician Mri Radio [facility] (I-Stat/1.5t) Work Phone: Radiology Comment on above: Benign meningioma (H CC) [D32.9] Start: 01-16-2025 End: 01-16-2025 Patient encounter procedure Gerald Cline MD Work Phone: Neurology Epilepsy Comment on above: Provoked seizures (H CC) (Primary Dx); Essential tremor Start: 01-16-2025 End: 01-16-2025 ambulatory NEYMAR JERONIMO Facility:[facility] Start: 01-02-2025 End: 01-02-2025 ambulatory ZOË KAPLAN Facility:[facility] Start: 01-02-2025 End: 01-15-2025 Patient encounter procedure Linda Mckeon MD Work Phone: Radiation Oncology Start: 01-02-2025 End: 01-15-2025 Radiation Oncology Note Linda Mckeon MD Work Phone: Radiation Oncology Comment on above: Simulation Note Treatment Planning Start: 01-02-2025 End: 01-02-2025 Nursing evaluation of patient and report Nurse Jennifer [facility] Work Phone: Radiation Oncology Comment on above: Intracranial meningi samantha (HCC) (Primary Dx) Start: 01-02-2025 End: 01-02-2025 ambulatory LINDA MCKEON Facility:[facility] Start: 01-01-2025 End: 01-30-2025 Orders Only Linda Mckeon MD Work Phone: Radiation Oncology Comment on above: Intracranial meningi samantha (HCC) (Primary Dx) Start: 12-26-2024 End: 12-26-2024 Patient encounter procedure Linda Mckeon MD Work Phone: Radiation Oncology Comment on above: Intracranial meningi samantha (HCC) Start: 12-26-2024 End: 12-26-2024 ambulatory NEYMAR JERONIMO Facility:[facility] Start: 12-18-2024 End: 12-18-2024 Telephone encounter Neymar Jeronimo MD Work Phone: [facility] Start: 12-13-2024 End: 12-13-2024 Telephone encounter Neymar Jeronimo MD Work Phone: [facility] Comment on above: Patient Question Start: 12-06-2024 End: 12-08-2024 Radiation Oncology Note Mendel Maxwell MD Work Phone: Radiation Oncology Comment on above: Procedure Treatment Planning Completion Note Simulation Note Start: 12-06-2024 End: 12-06-2024 ambulatory MENDEL MAXWELL Facility:[facility] Start: 12-06-2024 End: 12-08-2024 Patient encounter procedure Placement Neus Ca Ll Work Phone: Neurosurgery Comment on above: Benign meningioma (H CC) (Primary Dx) Start: 12-06-2024 End: 12-06-2024 ambulatory ZOË KAPLAN Facility:[facility] Start: 12-06-2024 End: 12-06-2024 Subsequent hospital visit by physician Joan Main Ca Work Phone: Radiology Comment on above: Benign meningioma (H CC) [D32.9] Start: 11-28-2024 End: 12-09-2024 Telephone encounter Todd Castro RN Work Phone: [facility] Start: 11-27-2024 End: 11-27-2024 ambulatory NEYMAR JERONIMO Facility:[facility] Start: 11-21-2024 End: 11-21-2024 Refill Zoë Kaplan SHOVELER - OUTDOOR ADVENTURE INSTRUCTOR Work Phone: [facility] Comment on above: Tremor Start: 11-12-2024 End: 11-13-2024 Telephone encounter Neymar Jeronimo MD Work Phone: [facility] Comment on above: 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 ther Start: 11-04-2024 End: 11-04-2024 ambulatory NEYMAR JERONIMO Facility:[facility] Start: 11-04-2024 End: 11-04-2024 Office outpatient visit 40 minutes Neymar Jeronimo MD Work Phone: [facility] Comment on above: Intracranial meningi samantha (HCC) (Primary Dx) Start: 11-04-2024 ambulatory NEYMAR JERONIMO Facili ty:[facility] Start: 11-04-2024 End: 11-04-2024 Subsequent hospital visit by physician Mri [place] (1.5t/Lg Bore 70cm) Work Phone: [facility] Comment on above: Intracranial meningi samantha (HCC) [D32.0] Start: 10-22-2024 End: 10-22-2024 ambulatory [facility] Start: 10-18-2024 End: 10-18-2024 Refill Zoë Kaplan SHOVELER - OUTDOOR ADVENTURE INSTRUCTOR Work Phone: [facility] Start: 10-08-2024 End: 10-08-2024 Refill Gerald Cline MD Work Phone: Neurology Comment on above: Refill Request Start: 08-01-2024 End: 08-01-2024 Telephone encounter Neymar Jeronimo MD Work Phone: [facility] Comment on above: 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 ther Start: 08-01-2024 End: 08-01-2024 Patient encounter procedure Tracy Barcenas MD Work Phone: NEUROLOGY Comment on above: Nonruptured cerebral aneurysm (Primary Dx) Start: 08-01-2024 End: 08-01-2024 ambulatory NEYMAR JERONIMO [facility] Start: 08-01-2024 End: 08-01-2024 Office outpatient visit 25 minutes Neymar Jeronimo MD Work Phone: [facility] Comment on above: Intracranial meningi samantha (HCC) (Primary Dx); Benign neoplasm of meninges (HCC) Start: 08-01-2024 ambulatory ZOË KAPLAN Facil ity:[facility] Start: 08-01-2024 End: 08-01-2024 Subsequent hospital visit by physician Mri [facility] [employer] [facility] [place] [employer] Comment on above: Intracranial meningi samantha (HCC) [D32.0] Start: 07-24-2024 End: 07-24-2024 Orders Only Zoë Kaplan SHOVELER - OUTDOOR ADVENTURE INSTRUCTOR Work Phone: [facility] Comment on above: Hyperlipidemia, unsp ecified hyperlipidemia type Start: 07-23-2024 End: 07-25-2024 Clinical Support Schedule Nathalie [facility] Comment on above: Blood Pressure Check Start: 07-04-2024 End: 07-04-2024 ambulatory GERALD CLINE [facility] Start: 07-04-2024 End: 07-04-2024 Patient encounter procedure Gerald Cline MD Work Phone: Neurology Epilepsy Comment on above: Provoked seizures (H CC) (Primary Dx) Start: 06-21-2024 End: 06-21-2024 ambulatory RACHID NEVILLE [facility] Start: 06-21-2024 End: 06-21-2024 Encounter for general adult medical examination without abnormal findings ZOË KAPLAN [facility] Start: 06-21-2024 End: 06-21-2024 Patient encounter procedure Zoë S Eusebio SHOVELER - OUTDOOR ADVENTURE INSTRUCTOR Work Phone: [facility] Comment on above: Medicare annual well ness visit, subsequent (Primary Dx); History of meningioma; Type 2 diabetes mellitus with hyperlipidemia (HCC) ; Encounter for diabetic foot exam (HCC); Neuropathy; Overweight (BMI 25.0-29.9); Essential hypertension; Hyperlipidemia, unspecified hyperlipidemia type; Seizures (HCC); Tremor Start: 05-27-2024 End: 05-27-2024 Office outpatient visit 15 minutes Zoë Kaplan SHOVELER - OUTDOOR ADVENTURE INSTRUCTOR Work Phone: [facility] Comment on above: Intracranial meningi samantha (HCC) (Primary Dx); Hospital discharge follow-up; Seizures (HCC); Aneurysm of anterior communicating artery Start: 05-27-2024 End: 05-27-2024 ambulatory RACHID NEVILLE [facility] Start: 05-20-2024 End: 05-20-2024 Postop follow up visit related to original px Neymar Jeronimo MD Work Phone: [facility] Comment on above: Intracranial meningi samantha (HCC) (Primary Dx) Start: 05-20-2024 End: 05-20-2024 ambulatory NEYMAR JERONIMO Facility[facility] Start: 05-14-2024 End: 05-14-2024 Telephone encounter Neymar Jeronimo MD Work Phone: [facility] Start: 05-07-2024 End: 05-07-2024 Telephone encounter Neymar Jeronimo MD Work Phone: [facility] Comment on above: 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 ther Start: 05-03-2024 ambulatory Zoey Feng Facility:[facility] Start: 05-03-2024 End: 05-20-2024 Evaluation and management of inpatient Zoey Feng Facility:[facility] Start: 04-26-2024 End: 05-03-2024 Evaluation and management of inpatient Mri 1 [facility] (I-Stat/Lg Bore/3t) [facility] Comment on above: Intracranial meningi samantha (HCC) [D32.0] Start: 04-25-2024 End: 04-25-2024 Telephone encounter Neymar Jeronimo MD Work Phone: [facility] Comment on above: Preparations For X[facility] luis alfredo Start: 04-23-2024 End: 04-23-2024 Telephone encounter Neymar Jeronimo MD Work Phone: [facility] Comment on above: Returning Patient's Call Start: 04-22-2024 End: 04-22-2024 Patient encounter status Neymar Jeronimo MD Work Phone: [facility] Start: 04-22-2024 End: 04-22-2024 Refill Neymar Jeronimo MD Work Phone: [facility] Comment on above: Refill Request Start: 04-18-2024 End: 04-18-2024 Telephone encounter Neymar Jeronimo MD Work Phone: [facility] Comment on above: 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 ther Start: 04-18-2024 ambulatory NEYMAR JERONIMO Facili ty:[facility] Start: 04-18-2024 End: 04-18-2024 Subsequent hospital visit by physician Xr [facility] GENER[facility] Comment on above: Presurgical Testing Start: 04-18-2024 End: 04-18-2024 Admission to [facility] 2 Pre Surgical Testing Start: 04-18-2024 End: 04-18-2024 Preprocedural examination done [facility] 2 [facility] Start: 04-18-2024 End: 04-18-2024 ambulatory NEYMAR JERONIMO Pre Surgical Testing Comment on above: Benign meningioma (H CC) (Primary Dx); Mixed hyperlipidemia; Primary hypertension; Pre-op examination; Intracranial meningioma (HCC); Type 2 diabetes mellitus without complication, without long-term current use of insulin (HCC); KIMBERLY (obstructive sleep apnea) Start: 04-16-2024 Encounter for other preprocedural examination NEYMAR JERONIMO [facility] Start: 04-16-2024 Preprocedural examination done Pst 2 [facility] Start: 04-15-2024 End: 04-15-2024 Telephone encounter Neymar Jeronimo MD Work Phone: [facility] Comment on above: 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 ther Start: 04-15-2024 End: 04-15-2024 Office outpatient visit 15 minutes Zoë Kaplan SHOVELER - OUTDOOR ADVENTURE INSTRUCTOR Work Phone: [facility] Comment on above: Pre-operative cleara nce (Primary Dx); Intracranial meningioma (HCC); Skin yeast infection Start: 04-15-2024 End: 04-15-2024 Preoperative state Zoë Kaplan SHOVELER - OUTDOOR ADVENTURE INSTRUCTOR Work Phone: [facility] [employer] Work Phone: Start: 04-15-2024 End: 04-15-2024 ambulatory [facility] Start: 04-15-2024 End: 04-15-2024 Encounter for other preprocedural examination [facility] Start: 04-09-2024 End: 04-10-2024 Orders Only Neymar Jeronimo MD Work Phone: [facility] Comment on above: Benign meningioma (H CC) (Primary Dx) 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 Start: 04-08-2024 End: 04-08-2024 Patient encounter procedure Ale Franks RN [facility] Clinical Communication Start: 04-08-2024 End: 04-08-2024 Office outpatient visit 10 minutes Zoë Kaplan SHOVELER - OUTDOOR ADVENTURE INSTRUCTOR Work Phone: [facility] Comment on above: Intracranial meningi samantha (HCC) (Primary Dx); Flu vaccine need Start: 04-08-2024 End: 04-08-2024 ambulatory Ale Franks RN [facility] Clinical Communication Start: 04-04-2024 End: 04-04-2024 ambulatory NEYMAR JERONIMO Facility:[facility] Start: 04-04-2024 End: 04-04-2024 Office outpatient visit 40 minutes Neymar Jeronimo MD Work Phone: [facility] Comment on above: Intracranial meningi samantha (HCC) (Primary Dx) Start: 04-04-2024 ambulatory NEYMAR JERONIMO Facili ty[facility] Start: 04-04-2024 End: 04-04-2024 Subsequent hospital visit by physician Mri [place] [employer] [facility] [place] [employer] Comment on above: Benign neoplasm of m eninges (HCC) [D32.9] Start: 03-13-2024 End: 03-13-2024 Orders Only Lashaun Spivey APRN - OUTDOOR ADVENTURE INSTRUCTOR Work Phone: [facility] Comment on above: Coccyx pain (Primary Dx) Coccyx pain Start: 02-19-2024 End: 02-19-2024 Office outpatient visit 40 minutes Neymar Jeronimo MD Work Phone: [facility] Comment on above: Benign neoplasm of m eninges (HCC) (Primary Dx); Subdural hematoma (HCC) Start: 02-19-2024 End: 02-19-2024 Telephone encounter Neymar Jeronimo MD Work Phone: [facility] Comment on above: 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 (Home Health U pdate ) Start: 02-19-2024 End: 02-19-2024 Subsequent hospital visit by physician Ct [facility] CT SCAN [place] [employer] Comment on above: SDH (subdural hemato ma) (HCC) [S06.5XAA] Start: 02-14-2024 End: 03-01-2024 Orders Only Eladia Jensen PA-C Work Phone: [place] [facility] Comment on above: SDH (subdural hemato ma) (HCC) (Primary Dx); Meningioma, cerebral (HCC) Orders Appointment Start: 02-12-2024 End: 02-12-2024 ambulatory Akilah Nevarez RN [facility] Clinical Communication Start: 02-12-2024 End: 02-12-2024 Patient encounter procedure Akilah Nevarez RN [facility] Clinical Communication Start: 02-12-2024 End: 02-12-2024 Office outpatient visit 10 minutes Rachid Neville MD Work Phone: [facility] Comment on above: Poison ro (Primary Dx) Start: 02-07-2024 End: 02-07-2024 Subsequent hospital visit by physician Anson. Cruz Work Phone: [facility] MRI Comment on above: Unspecified exophtha lmos Start: 01-25-2024 End: 04-25-2024 Refill Rachid Neville MD Work Phone: [facility] Comment on above: Unspecified exophtha lmos (Primary Dx) Start: 01-02-2024 End: 01-02-2024 Office outpatient visit 25 minutes Rachid Neville MD Work Phone: [facility] Comment on above: Acute left-sided low back pain with left-sided sciatica (Primary Dx); Type 2 diabetes mellitus with hyperlipidemia (HCC) (HCC) Start: 08-23-2023 End: 08-23-2023 Office outpatient visit 15 minutes Lashaun Spivey SHOVELER - OUTDOOR ADVENTURE INSTRUCTOR Work Phone: [facility] Comment on above: Nasal congestion (Pr imary Dx); Acute cough Start: 08-11-2023 Documentation procedure Tracey Alfredo er PT [facility] Start: 08-07-2023 End: 08-07-2023 ambulatory Rachid Neville MD Work Phone: [facility] Comment on above: Benign paroxysmal po sitional vertigo of left ear Start: 07-04-2023 Refill Zoë Kaplan SHOVELER - OUTDOOR ADVENTURE INSTRUCTOR Work Phone: [facility] Start: 06-27-2023 End: 06-27-2023 Office outpatient visit 15 minutes Rachid Neville MD Work Phone: [facility] Comment on above: Greater trochanteric bursitis of right hip (Primary Dx); Benign paroxysmal positional vertigo of left ear Start: 05-05-2023 Telephone encounter Rachid Woody MD Work Phone: [facility] Medicine Comment on above: dry eye and tumor co ncerned Start: 04-24-2023 End: 04-24-2023 Patient encounter procedure Zoë Kaplan SHOVELER - OUTDOOR ADVENTURE INSTRUCTOR Work Phone: [facility] Medicine Comment on above: Medicare annual well ness visit, subsequent (Primary Dx); Type 2 diabetes mellitus with hyperlipidemia ([facility]) ; Encounter for diabetic foot exam ([facility]); Class 1 obesity due to excess calories with serious comorbidity and body mass index (BMI) of 30.0 to 30.9 in adult; Essential hypertension; Hyperlipidemia, unspecified hyperlipidemia type; Urge incontinence; Frequency of urination; Arthritis of right hip; Tremor; Flu vaccine need Start: 03-10-2023 Refill Rachid Neville MD Work Phone: [facility] Start: 11-14-2022 End: 11-14-2022 Patient encounter procedure Zoë Kalpan SHOVELER - OUTDOOR ADVENTURE INSTRUCTOR Work Phone: [facility] Comment on above: Neoplasm of uncertai n behavior of skin of back (Primary Dx) Start: 10-24-2022 End: 10-24-2022 Office outpatient visit 25 minutes Zoë Kaplan SHOVELER - OUTDOOR ADVENTURE INSTRUCTOR Work Phone: [facility] Comment on above: Type 2 diabetes gale itus without complication, without long- term current use of insulin ([facility]/HCC) (HCC) (Primary Dx); Overweight (BMI 25.0-29.9); Essential hypertension; Hyperlipidemia, unspecified hyperlipidemia type; Neoplasm of uncertain behavior of skin of back Start: 05-01-2020 End: 05-01-2020 Subsequent hospital visit by physician Robert Lu Work Phone: [facility] Radiology Comment on above: Lumbar radiculopathy Start: 04-20-2020 End: 04-20-2020 Subsequent hospital visit by physician Robert Lu Work Phone: [facility] Comment on above: Arrived Start: 12-06-2019 End: 12-06-2019 Subsequent hospital visit by physician Zoë Kaplan Work Phone: [facility] Comment on above: Chronic right hip pa in Procedures Date Procedure Procedure Detail Performing Clinician Start: 03-24-2025 Complete blood count with white cell differential, automated Lashaun Bridenthal SHOVELER - OUTDOOR ADVENTURE INSTRUCTOR Work Phone: Start: 03-24-2025 Comprehensive metabo lic panel Lashaun Bridenthal SHOVELER - OUTDOOR ADVENTURE INSTRUCTOR Work Phone: Start: 03-24-2025 Thyrotropin [Units/v olume] in Serum or Plasma Lashaun Bridenthal SHOVELER - OUTDOOR ADVENTURE INSTRUCTOR Work Phone: Start: 01-16-2025 Mri brain brain stem w/o w/contrast material Neymar Jeronimo MD Work Phone: Start: 12-06-2024 Ct head/brain w/o co ntrast material Neymar Jeronimo MD Work Phone: Start: 12-06-2024 Unlisted magnetic re sonance procedure Neymar Jeronimo MD Work Phone: Start: 11-04-2024 Mri brain brain stem w/o w/contrast material Neymar Jeronimo MD Work Phone: Start: 06-21-2024 Comprehensive metabo lic panel Zoë Kaplan SHOVELER - OUTDOOR [employer] Work Phone: Start: 06-21-2024 Lipid panel Zoë Kim SHOVELER - OUTDOOR [employer] Work Phone: Start: 06-21-2024 Urine albumin quantitative Zoë Kaplan SHOVELER - OUTDOOR [employer] Work Phone: Start: 06-21-2024 Adult depression scr eening assessment Zoë Kaplan SHOVELER - OUTDOOR [employer]CTOR Work Phone: Start: 04-18-2024 Antibody screen NEYMAR GERARD Comment on above: Order Comment: Speci men Type: BLOOD SPECIMEN Ordering Facility: [facility] Address: [facility] [place] [address] Performed By: #### T [id number] #### [facility] BLOOD BANK [place] [id number] [address] [place] [address] [place] [facility] Start: 04-18-2024 Ecg routine ecg w/le ast 12 lds i&r only Neymar Jeronimo MD Work Phone: Start: 04-15-2024 Adult depression scr eening assessment Zoë Kaplan SHOVELER - OUTDOOR [employer] Work Phone: Start: 04-04-2024 Mri brain brain stem w/o w/contrast material Neymar Jeronimo MD Work Phone: Start: 03-13-2024 Radex sacrum & coccy x minimum 2 views Lashaun Bridenthal SHOVELER - OUTDOOR [employer] Work Phone: Start: 01-02-2024 Hemoglobin glycosylated a1c Rachid Neville MD Work Phone: Start: 04-24-2023 Adult depression scr eening assessment Zoë Kaplan SHOVELER - OUTDOOR [employer] Work Phone: Start: 04-01-2022 Lipid 1996 panel - S marium or Plasma Zoë Kaplan SHOVELER - OUTDOOR [employer]CTOR Work Phone: Start: 04-20-2020 EMG REPORT José galvan Work Phone: Start: 12-06-2019 Radex hip unilateral with pelvis 2-3 views Zoë Kaplan Work Phone: Plan of Treatment Date Care Activity Detail Author Start: 12-10-2028 DTaP/Tdap/Td vaccine (2 - Td) DTaP/Tdap/Td vaccine (2 - Td) [facility] [place], [place] Start: 12-10-2028 DTaP/Tdap/Td Vaccine s (2 - Td or Tdap) DTaP/Tdap/Td Vaccines (2 - Td or Tdap) [facility] Start: 12-10-2028 Urine microalbumin profile DTaP,Tdap,Td Vaccine (2 - Td or Tdap) [facility] Start: 02-13-2027 Diabetes Screening Diabetes Screenin g [facility] Start: 08-10-2025 End: 09-26-2025 MRA Head vessels WO contrast MRA BRAIN WO IVCON Radiology Routine Nonruptured cerebral aneurysm Expected: 08/10/2025, Expires: 09/26/2025 [facility] Work Phone: Comment on above: Expected: 08/10/2025 , Expires: 09/26/2025 Start: 2025 End: 2025 Patient encounter procedure 2025 1:00 PM EST Office Visit Family Medicine [facility] [address] [place], [place] [id number] Jerry Zepeda MD [address] [place] [address] [facility] Comment on above: [facility] Start: 07-23-2025 Hepatitis B surface antibody level LDL Cholesterol [facility] Start: 06-21-2025 Depression Screening Depression Scre [facility] Start: 06-21-2025 Diabetes: Estimated Glomerular Filtration Rate for [facility] Diabetes: Estimated Glomerular Filtration Rate for [facility] Start: 06-21-2025 Diabetes: Urine Albumin-Creatinine Ratio for [facility] Diabetes: Urine Albumin-Creatinine Ratio for [facility] Start: 06-21-2025 Hepatitis B screening Urine Albumin:Creatinine Ratio [facility] Start: 06-21-2025 Hepatitis B surface antibody level LDL Cholesterol [facility] Start: 06-02-2025 End: 06-02-2025 Patient encounter procedure 06/02/2025 11:30 AM EST Office Visit [facility] [address] [facility] [place] [phone] Neymar Jeronimo MD [address] [facility] [place] [address] MRI follow up [facility] Comment on above: MRI follow up Start: 05-26-2025 End: 05-26-2025 Patient encounter procedure 05/26/2025 10:15 AM EST Appointment [facility] [address] [place] [address] MRI BRAIN WO/W IVCON [facility] Comment on above: MRI BRAIN WO/W IVCON Start: 05-03-2025 Diabetes: Estimated Glomerular Filtration Rate for [facility] Diabetes: Estimated Glomerular Filtration Rate for [facility] Start: 04-24-2025 End: 04-24-2025 Patient encounter procedure [facility] Comment on above: MRI BRAIN WO/W IVCON MRI follow up Start: 04-15-2025 Depression Screening Depression Scre [facility] Start: 04-02-2025 End: 04-02-2025 Follow-up encounter 04/02/2025 3:30 PM EDT [facility] Radiation Oncology [address] [place] [address] Linda Mckeon MD [address] [place] [address] 4 WK FOLLOW UP Radiation Oncology Comment on above: 4 WK FOLLOW UP Start: 03-28-2025 End: 03-28-2025 Patient encounter procedure 03/28/2025 10:00 AM EDT Appointment Radiology [address] [place] [address] CT BRAIN WO IVCON Radiology Comment on above: CT BRAIN WO IVCON Start: 03-26-2025 End: 03-26-2025 Follow-up encounter 03/26/2025 3:30 PM EDT [facility] Radiation Oncology [address] [place] [address] Linda Mckeon MD [address] [place] [id number] symptoms since having started radiation - pcp stated to follow up with Dr. Mckeon Radiation Oncology Comment on above: symptoms since havin g started radiation - pcp stated to follow up with Dr. Mckeon Start: 03-25-2025 End: 06-24-2025 Bacteria identified in Urine by Culture BACTERIAL CULTURE, URINE Microbiology Routine Urinary tract infection without hematuria, site unspecified Expected: 03/25/2025, Expires: 06/24/2025 [facility] Comment on above: Expected: 03/25/2025 , Expires: 06/24/2025 Start: 03-25-2025 End: 06-24-2025 Urinalysis complete panel - Urine URINALYSIS, WITH MICROSCOPIC Lab Routine Urinary tract infection without hematuria, site unspecified Expected: 03/25/2025, Expires: 06/24/2025 [facility] Work Phone: Comment on above: Expected: 03/25/2025 , Expires: 06/24/2025 Start: 03-24-2025 End: 03-24-2026 CBC W Auto Differential panel - Blood CBC auto differential Lab Routine Weakness of both legs Expected: 03/24/2025 (Approximate), Expires: 03/24/2026 [facility] Comment on above: Expected: 03/24/2025 (Approximate), Expires: 03/24/2026 Start: 03-24-2025 End: 03-24-2026 Comprehensive metabolic 1998 panel - Serum or Plasma Comprehensive metabolic panel Lab Routine Weakness of both legs Expected: 03/24/2025 (Approximate), Expires: 03/24/2026 [facility] Work Phone: Comment on above: Expected: 03/24/2025 (Approximate), Expires: 03/24/2026 Start: 03-24-2025 End: 03-24-2026 Hemoglobin A1c measurement Hemoglobin A1c Lab Routine Type 2 diabetes mellitus with hyperlipidemia (HCC) Expected: 03/24/2025 (Approximate), Expires: 03/24/2026 [facility] Comment on above: Expected: 03/24/2025 (Approximate), Expires: 03/24/2026 Start: 03-24-2025 End: 03-24-2026 Thyrotropin [Units/volume] in Serum or Plasma TSH Lab Routine Weakness of both legs Expected: 03/24/2025 (Approximate), Expires: 03/24/2026 [facility] Comment on above: Expected: 03/24/2025 (Approximate), Expires: 03/24/2026 Start: 03-10-2025 COVID-19 Vaccine ( season) COVID-19 Vaccine ( season) [facility] Start: 03-10-2025 Influenza vaccination Influenza Vacc ine (#1) [facility] Start: 02-25-2025 End: 02-25-2025 Patient encounter procedure Radiation Oncology Comment on above: Location: [facility] Location: W-ON TREAT MENT VISIT Start: 02-24-2025 End: 02-24-2025 Patient encounter procedure 02/24/2025 10:30 AM EDT Appointment Radiation Oncology [address] [place] [address] Location: [email or web address] Radiation Oncology Comment on above: Location: [facility] Start: 02-21-2025 End: 02-21-2025 Patient encounter procedure 02/21/2025 10:30 AM EDT Appointment Radiation Oncology [address] [place] [address] Location: [email or web address] Radiation Oncology Comment on above: Location: [facility] Start: 02-20-2025 End: 02-20-2025 Patient encounter procedure 02/20/2025 10:30 AM EDT Appointment Radiation Oncology [address] [place] [address] Location: [email or web address] Radiation Oncology Comment on above: Location: [facility] Start: 02-19-2025 End: 02-19-2025 Patient encounter procedure 02/19/2025 10:30 AM EDT Appointment Radiation Oncology [address] [place] [address] Location: [email or web address] Radiation Oncology Comment on above: Location: [facility] Start: 02-18-2025 End: 02-18-2025 Patient encounter procedure Radiation Oncology Comment on above: Location: [facility] Location: W-ON TREAT MENT VISIT Start: 02-17-2025 End: 02-17-2025 Patient encounter procedure 02/17/2025 10:30 AM EDT Appointment Radiation Oncology [address] [place], [place] [id number] Location: [email or web address] Radiation Oncology Comment on above: Location: [facility] Start: 02-14-2025 End: 02-14-2025 Patient encounter procedure 02/14/2025 10:30 AM EDT Appointment Radiation Oncology [address] [place] [address] Location: [email or web address] Radiation Oncology Comment on above: Location: [facility] Start: 02-13-2025 End: 02-13-2025 Patient encounter procedure Radiation Oncology Comment on above: Location: [facility] today only Start: 02-12-2025 End: 02-12-2025 Patient encounter procedure Radiation Oncology Comment on above: Location: [facility] 8 tomorrow only Start: 02-11-2025 End: 02-11-2025 Patient encounter procedure Radiation Oncology Comment on above: Location: [facility] Location: W-ON TREAT MENT VISIT Start: 02-10-2025 End: 02-10-2025 Patient encounter procedure 02/10/2025 10:30 AM EDT Appointment Radiation Oncology [address] [place] [address] Location: [email or web address] Rad[facility] Oncology Comment on above: Location: [facility] Start: 02-07-2025 End: 02-07-2025 Patient encounter procedure 02/07/2025 10:30 AM EDT Appointment Radiation Oncology [address] [place] [address] Location: [email or web address] Rad[facility] Oncology Comment on above: Location: [facility] Start: 02-06-2025 End: 02-06-2025 Patient encounter procedure 02/06/2025 10:30 AM EDT Appointment Radiation Oncology [address] [place] [address] Location: [email or web address] On[facility] Comment on above: Location: [facility] Start: 02-05-2025 End: 02-05-2025 Patient encounter procedure 02/05/2025 10:30 AM EDT Appointment Radiation Oncology [address] [place] [address] Location: [email or web address] Rad[facility] Oncology Comment on above: Location: [facility] Start: 02-04-2025 End: 02-04-2025 Patient encounter procedure Radiation Oncology Comment on above: Location: [facility] Location: W-ON TREAT MENT VISIT Start: 02-03-2025 End: 02-03-2025 Patient encounter procedure 02/03/2025 10:30 AM EDT Appointment Radiation Oncology [address] [place] [address] Location: [email or web address] Rad[facility] Oncology Comment on above: Location: [facility] Start: 01-31-2025 End: 01-31-2025 Patient encounter procedure 01/31/2025 10:30 AM EDT Appointment Radiation Oncology [address] [place] [address] Location: [email or web address] Rad[facility] On[facility] Comment on above: Location: [facility] Start: 01-30-2025 End: 01-30-2025 Patient encounter procedure 01/30/2025 10:30 AM EDT Appointment Radiation Oncology [address] [place] [address] Location: [email or web address] Radiation Oncology Comment on above: Location: [facility] Start: 01-29-2025 End: 01-29-2025 Patient encounter procedure Radiation Oncology Comment on above: Location: [facility] today only Start: 01-28-2025 End: 01-28-2025 Patient encounter procedure Radiation Oncology Comment on above: Location: [facility] Location: W-ON TREAT MENT VISIT 8 tomorrow only Start: 01-27-2025 End: 01-27-2025 Patient encounter procedure 01/27/2025 10:30 AM EDT Appointment Radiation Oncology [address] [place] [address] Location: [email or web address] Rad[facility] Oncology Comment on above: Location: [facility] Start: 01-24-2025 End: 01-24-2025 Patient encounter procedure 01/24/2025 10:30 AM EDT Appointment Radiation Oncology [address] [place] [address] Location: [email or web address] Rad[facility] Oncology Comment on above: Location: [facility] Start: 01-23-2025 End: 01-23-2025 Patient encounter procedure 01/23/2025 10:30 AM EDT Appointment Radiation Oncology [address] [place] [address] Location: [email or web address] Radiation Oncology Comment on above: Location: [facility] Start: 01-22-2025 End: 01-22-2025 Patient encounter procedure Radiation Oncology Comment on above: Location: [facility] Location: W-ON TREAT MENT VISIT Start: 01-21-2025 End: 01-21-2025 Patient encounter procedure [facility] Comment on above: 1st gamma post op, M RI done 01/17 Location: [facility] Location: W-ON TREAT MENT VISIT needs earlier Start: 01-21-2025 End: 01-21-2025 Patient encounter procedure 01/21/2025 8:30 AM EDT Appointment Radiation Oncology [address] [place] [address] today only Radiation Oncology Comment on above: today only Start: 01-20-2025 End: 01-20-2025 Patient encounter procedure Radiation Oncology Comment on above: Location: [facility] needs earlier tomorr ow today only Start: 01-17-2025 End: 01-17-2025 Patient encounter procedure 01/17/2025 12:45 PM EDT Appointment Radiation Oncology [address] [place] [address] this time today due to mri Radiation Oncology Comment on above: this time today due to mri Start: 01-17-2025 End: 01-17-2025 Patient encounter procedure [facility] Comment on above: Benign meningioma (H CC) [D32.9] Location: [facility] Start: 01-16-2025 End: 01-16-2025 Patient encounter procedure 01/16/2025 2:30 PM EDT Appointment Radiology [address] [place] [address] Benign meningioma (HCC) [D32.9] Radiology Comment on above: Benign meningioma (H CC) [D32.9] Start: 01-16-2025 End: 01-16-2025 Patient encounter procedure Radiation Oncology Comment on above: this time only today Start: 01-16-2025 End: 01-16-2025 Patient encounter procedure 01/16/2025 9:40 AM EDT Office Visit Neurology Epilepsy [address] [facility] [address] [place] [address] Gerald Cline MD [address] [facility] [address] [place] [address] 6 month follow-up Neurology Epilepsy Comment on above: 6 month follow-up Start: 01-15-2025 End: 01-15-2025 Patient encounter procedure 01/15/2025 10:30 AM EDT Appointment Radiation Oncology [address] [place] [id number] Location: [email or web address] Radiation Oncology Comment on above: Location: [facility] Start: 01-14-2025 End: 01-14-2025 Patient encounter procedure Radiation Oncology Comment on above: Location: [facility] Location: W-ON TREAT MENT VISIT Start: 01-13-2025 End: 01-13-2025 Patient encounter procedure Radiation Oncology Comment on above: tent time has other appt this week and needs changed Start: 01-02-2025 End: 01-02-2025 Nursing evaluation of patient and report 01/02/2025 1:30 PM EDT Nurse Visit Radiation Oncology [address] [place], [place] [phone] Wstr, Nurse Radt [facility] [address] [place] [phone] Location: W-NURSING Radiation Oncology Comment on above: Location: W-NURSING Start: 01-02-2025 End: 01-02-2025 Patient encounter procedure 01/02/2025 1:00 PM EDT Office Visit Radiation Oncology [address] [place], [place] [phone] Linda Mckeon MD [address] [place] [id number] sim at this time. mask Radiation Oncology Comment on above: sim at this time. risa perry Start: 12-20-2024 End: 12-20-2024 Patient encounter procedure 12/20/2024 10:00 AM EDT Office Visit [facility] [address] [place] [address] [place] [address] Zoë Kaplan APRN - CNP [address] [place] [address] [facility] Start: 12-06-2024 End: 12-06-2024 Radiation delivery stereotactic cranial cobalt RADIATION TX STEREOTACTIC RADIOSURGERY (SRS) TX CRANIAL LESION(S) 1 SESSION MULTI-SOURCE COBALT Benign meningioma (HCC) 12/06/2024 9:30 AM EDT [facility] ANESTHESIA ONLY Start: 12-06-2024 End: 12-06-2024 Stereotactic radiosurgery 1 complex cranial les STEREOTACTIC RADIOSURGERY 1 COMPLEX CRANIAL LESION Benign meningioma (HCC) 12/06/2024 9:30 AM EDT [facility] ANESTHESIA ONLY Start: 11-27-2024 End: 11-27-2024 ambulatory 11/27/2024 2:00 PM EDT [facility] Radiation Oncology [address] [place] [address] [place] [address] [place], [place] [id number] Dx: Meningioma. Radiation Oncology Comment on above: Dx: Meningioma. Start: 11-04-2024 End: 11-04-2024 Patient encounter procedure 11/04/2024 11:30 AM EDT Office Visit [facility] [address] [facility] [address] [place] [phone] Neymar Jeronimo MD [address] [facility] [address] [place], [place] [address] follow up MRI's done today [facility] Comment on above: follow up MRI's done today Start: 11-04-2024 End: 11-04-2024 Patient encounter procedure 11/04/2024 10:15 AM EDT Appointment RADIO MRI [facility] [address] [facility] [place] [address] brain and pituitary [facility] Comment on above: brain and pituitary Start: 10-28-2024 Hemoglobin A1c measurement HbA1C [facility] Start: 08-01-2024 End: 08-01-2024 Patient encounter procedure NEUROLOGY Comment on above: new 3 month follow u p 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 Start: 07-04-2024 End: 07-04-2024 Patient encounter procedure 07/04/2024 11:00 AM EST Office Visit Neurology Epilepsy [address] [facility] [place] [place] [address] Gerald Cline MD [address] [facility] [place] [place] [address] Seizures Neurology Epilepsy Comment on above: Seizures Start: 07-03-2024 Hemoglobin A1c measurement HbA1C [facility] Start: 06-21-2024 End: 06-21-2025 Comprehensive metabolic 1998 panel - Serum or Plasma Comprehensive metabolic panel Lab Routine Type 2 diabetes mellitus with hyperlipidemia (HCC) Overweight (BMI 25.0-29.9) Essential hypertension Hyperlipidemia, unspecified hyperlipidemia type Seizures (HCC) Tremor Expected: 06/21/2024 (Approximate), Expires: 06/21/2025 [facility] Comment on above: Expected: 06/21/2024 (Approximate), Expires: 06/21/2025 Start: 06-21-2024 End: 06-21-2025 LEVETIRACETAM LEVEL LEVETIRACETAM LEVEL Lab Routine Seizures (HCC) Expected: 06/21/2024 (Approximate), Expires: 06/21/2025 [facility] Comment on above: Expected: 06/21/2024 (Approximate), Expires: 06/21/2025 Start: 06-21-2024 End: 06-21-2025 Lipid 1996 panel - Serum or Plasma Lipid panel Lab Routine Hyperlipidemia, unspecified hyperlipidemia type Expected: 06/21/2024 (Approximate), Expires: 06/21/2025 [facility] Comment on above: Expected: 06/21/2024 (Approximate), Expires: 06/21/2025 Start: 06-21-2024 End: 06-21-2025 Microalbumin/Creatinine panel in random Urine Microalbumin / creatinine urine ratio Lab Routine Type 2 diabetes mellitus with hyperlipidemia (HCC) Expected: 06/21/2024 (Approximate), Expires: 06/21/2025 [facility] Work Phone: Comment on above: Expected: 06/21/2024 (Approximate), Expires: 06/21/2025 Start: 06-21-2024 End: 06-21-2024 Patient encounter procedure 06/21/2024 8:40 AM EST Office Visit [facility] [address] [place] [address] [place] [address] Zoë Kaplan, IFEANYI - NELLY [address] [facility] [place] [address] [facility] Start: 05-24-2024 Medicare Advantage Annual Wellness Visit (AWV) Medicare Advantage Annual Wellness Visit (AWV) [facility] Start: 05-20-2024 End: 05-20-2024 Patient encounter procedure 05/20/2024 2:00 PM EST Office Visit [facility] [address] [place] [phone] Neymar Jeronimo MD [address] [place] [address] 1st post op [facility] Comment on above: 1st post op Start: 05-07-2024 End: 05-07-2024 Patient encounter procedure 05/07/2024 10:30 AM EDT Office Visit [facility] [address] [facility] [place] [phone] Neymar Jeronimo MD [address] [facility] [place] [place] [address] 1st post op [facility] Comment on above: 1st post op Start: 04-26-2024 End: 04-26-2024 Patient encounter procedure [facility] Start: 04-26-2024 End: 04-26-2024 Admission to [facility] day surgery center [facility] Comment on above: CRANIOTOMY FOR EXCIS ION SUPRATENTORIAL MENINGIOMA Start: 04-26-2024 End: 04-26-2024 Crnec trephine bone flap meningioma supratentor [facility] Start: 04-26-2024 End: 04-26-2024 Microsurg tqs req use operating microscope [facility] Start: 04-26-2024 End: 04-26-2024 Strtctc cptr asstd px cranial intradural [facility] Start: 04-26-2024 Subsequent hospital visit by physician [facility] Comment on above: Benign meningioma (H CC) [D32.9] Start: 04-24-2024 Depression Screening Depression Scre ening [facility] Start: 04-24-2024 Diabetes: Urine Albumin-Creatinine Ratio for [facility] Diabetes: Urine Albumin-Creatinine Ratio for [facility] Start: 04-24-2024 Hepatitis B screening Urine Albumin:Creatinine Ratio [facility] Start: 04-24-2024 Hepatitis B surface antibody level LDL Cholesterol [facility] Start: 04-24-2024 End: 04-24-2024 Admission to same day surgery center 04/24/2024 8:30 AM EDT - 04/24/2024 4:35 PM EDT Surgery [place] [facility] [place] [address] [facility] [place] [address] Neymar Jeronimo MD [address] [place] [address] CRANIOTOMY FOR EXCISION SUPRATENTORIAL MENINGIOMA [facility] Comment on above: CRANIOTOMY FOR EXCIS ION SUPRATENTORIAL MENINGIOMA Start: 04-24-2024 End: 04-24-2024 Crnec trephine bone flap meningioma supratentor CRANIOTOMY FOR EXCISION SUPRATENTORIAL MENINGIOMA Benign meningioma (HCC) 04/24/2024 8:30 AM EDT [facility] Start: 04-24-2024 End: 04-24-2024 Microsurg tqs req use operating microscope MICROSURGICAL TECHNIQUE FOR CRANIOTOMY PROCEDURES Benign meningioma (HCC) 04/24/2024 8:30 AM EDT [facility] Start: 04-24-2024 End: 04-24-2024 [facility]rad[facility] B[facility]INLAB STEREOTACTIC COMPUTER-ASSISTED NAVIGATIONAL PROCEDURE CRANIAL Benign meningioma (HCC) 04/24/2024 8:30 AM EDT [facility] Start: 04-24-2024 Subsequent hospital visit by physician 04/24/2024 8:30 AM EDT Hospital Encounter [facility] 1 [place] [address] Neymar Jeronimo MD [address] [place] [address] Benign meningioma (HCC) [D32.9] [facility] Comment on above: Benign meningioma (H CC) [D32.9] Start: 04-18-2024 End: 04-18-2024 ambulatory 04/18/2024 10:40 AM EDT PAT Pre Surgical Testing 1 [place] [address] Craniotomy Pre Surgical Testing Comment on above: Craniotomy Start: 04-15-2024 End: 04-15-2024 Patient encounter procedure 04/15/2024 11:00 AM EDT Office Visit [facility] [address] [place] [address] [place] [address] Zoë Kaplan, IFEANYI - NELLY [address] [place] [address] [place] [address] [facility] Start: 03-25-2024 End: 03-25-2024 Patient encounter procedure 03/25/2024 2:30 PM EDT Office Visit [facility] [address] [facility] [place] [phone] Neymar Jeronimo MD [address] [facility] [place] [address] fu with mri today [facility] Comment on above: fu with mri today Start: 03-25-2024 End: 03-25-2024 Patient encounter procedure RADIO MRI [facility] Comment on above: mri pituitary w/ & w /o-DK MRI PITUITARY WO/W Start: 03-10-2024 COVID-19 Vaccine ( season) COVID-19 Vaccine ( season) [facility] Start: 03-10-2024 Covid-19 Vaccine ( season) Covid-19 Vaccine ( season) [facility] Start: 03-10-2024 Influenza vaccination Influenza Vacc ine (#1) [facility] Start: 02-19-2024 End: 02-19-2024 Patient encounter procedure 02/19/2024 2:30 PM EDT Office Visit [facility] [address] [place] [phone] Neymar Jeronimo MD [address] [place], [place] [address] New Meningioma. Patient to bring disc [facility] Comment on above: New Meningioma. Tonya ent to bring disc Start: 02-08-2024 Glaucoma screening Diabetes: R etinopathy Screening [facility] Start: 02-07-2024 End: 02-07-2024 Patient encounter procedure [facility] Start: 10-27-2023 End: 10-27-2023 Patient encounter procedure 10/27/2023 10:40 AM EDT Office Visit [facility] [address] [facility] [place] [address] Zoë Kaplan, SHOVELER - OUTDOOR ADVENTURE INSTRUCTOR [address] [facility] [place] [address] [facility] Start: 10-25-2023 COVID-19 Vaccine (3 - Booster for Moderna series) COVID-19 Vaccine (3 - Booster for Moderna series) [facility] Comment on above: Postponed from 12/18 (Patient Refused) Start: 10-25-2023 COVID-19 Vaccine (3 - Moderna series) COVID-19 Vaccine (3 - Moderna series) [facility] Comment on above: Postponed from 12/18 (Patient Refused) Start: 10-10-2023 Examination of skin Derm Melan samantha Skin Check [facility] Start: 08-15-2023 End: 08-15-2023 Follow-up encounter 08/15/2023 12:00 PM EST Follow-Up [facility] Therapy at [address] [place] [address] Tracey Disla, PT [facility] Therapy at [facility] Start: 08-07-2023 End: 08-07-2023 ambulatory 08/07/2023 9:[address] [facility] Therapy at [address] [place] [address] Rachid Neville MD [address] [place] [address] [place] [address] Trcaey Disla, PT [facility] Therapy at [facility] Start: 07-11-2023 End: 07-11-2023 Patient encounter procedure 07/11/2023 8:45 AM EST Office Visit [address] [place] [address] Rachid Neville MD [address] [place] [address] [place] [address] [facility] Start: 07-10-2023 Advance Directive Discussion Advance Directive Discussion [facility] Start: 07-10-2023 Medicare Advantage Annual Wellness Visit Medicare Advantage Annual Wellness Visit [facility] Start: 06-27-2023 End: 06-27-2024 Large Joint Injection/Arthrocentesis Large Joint Injection/Arthrocentesi s Procedures Routine Greater trochanteric bursitis of right hip Expected: 06/27/2023 (Approximate), Expires: 06/27/2024 [employer] Work Phone: Comment on above: Expected: 06/27/2023 (Approximate), Expires: 06/27/2024 Start: 06-09-2023 Preventive dental service Diabetes: Dental Exam [facility] [employer] Start: 06-05-2023 End: 06-05-2023 Patient encounter procedure 06/05/2023 10:00 AM EST Office Visit [facility] Medicine [address] [place] [address] Zoë Kaplan S, SHOVELER - [employer]DOOR AD[employer]URE INSTRUCTOR [address] [place] [address] [facility] Start: 04-24-2023 End: 04-24-2024 CBC panel - Blood by Automated count CBC Lab Routine Type 2 diabetes mellitus with hyperlipidemia (HCC) Essential hypertension Hyperlipidemia, unspecified hyperlipidemia type Urge incontinence Arthritis of right hip Class 1 obesity due to excess calories with serious comorbidity and body mass index (BMI) of 30.0 to 30.9 in adult Frequency of urination Tremor Expected: 04/24/2023 (Approximate), Expires: 04/24/2024 [employer] Work Phone: Comment on above: Expected: 04/24/2023 (Approximate), Expires: 04/24/2024 Start: 04-24-2023 End: 04-24-2024 Comprehensive metabolic 1998 panel - Serum or Plasma Comprehensive metabolic panel Lab Routine Type 2 diabetes mellitus with hyperlipidemia (HCC) Essential hypertension Hyperlipidemia, unspecified hyperlipidemia type Urge incontinence Arthritis of right hip Class 1 obesity due to excess calories with serious comorbidity and body mass index (BMI) of 30.0 to 30.9 in adult Frequency of urination Tremor Expected: 04/24/2023 (Approximate), Expires: 04/24/2024 [facility] Comment on above: Expected: 04/24/2023 (Approximate), Expires: 04/24/2024 Start: 04-24-2023 End: 04-24-2024 Hemoglobin A1c measurement Hemoglobin A1c Lab Routine Type 2 diabetes mellitus with hyperlipidemia (HCC) Expected: 04/24/2023 (Approximate), Expires: 04/24/2024 [facility] Comment on above: Expected: 04/24/2023 (Approximate), Expires: 04/24/2024 Start: 04-24-2023 End: 04-24-2024 Lipid 1996 panel - Serum or Plasma Lipid panel Lab Routine Hyperlipidemia, unspecified hyperlipidemia type Expected: 04/24/2023 (Approximate), Expires: 04/24/2024 [facility] Comment on above: Expected: 04/24/2023 (Approximate), Expires: 04/24/2024 Start: 04-24-2023 End: 04-24-2024 Microalbumin/Creatinine panel in random Urine Microalbumin / creatinine, urine ratio Lab Routine Type 2 diabetes mellitus with hyperlipidemia (HCC) Expected: 04/24/2023 (Approximate), Expires: 04/24/2024 [facility] Comment on above: Expected: 04/24/2023 (Approximate), Expires: 04/24/2024 Start: 04-24-2023 End: 04-24-[address] [facility] Start: 04-18-2023 Urine screening for protein Diabetes: Urine Protein Screening [facility] Start: 04-01-2023 Diabetic foot examination Diabetes: Foot Exam [facility] Comment on above: Postponed from 07/29 (Other Medical Reasons) Start: 04-01-2023 Lipid panel Lipid Panel [facility] Start: 03-10-2023 COVID-19 Vaccine () COVID-19 Vaccine () [facility] Start: 03-10-2023 Influenza vaccination [facility] Start: 01-23-2023 Hemoglobin A1c measurement Diabetes: Hemoglobin A1C [facility] Start: 11-14-2022 End: 11-14-2022 Patient encounter procedure 11/14/2022 Office Visit Family Medicine Zoë Kaplan, SHOVELER - OUTDOOR ADVENTURE INSTRUCTOR [address] [place] [address] [facility] Start: 10-24-2022 End: 10-22-2023 Basic metabolic 1998 panel - Serum or Plasma Basic metabolic panel Lab Routine Type 2 diabetes mellitus without complication, without long-term current use of insulin ([facility]) ([facility]) Overweight (BMI 25.0-29.9) Essential hypertension Expected: 10/24/2022, Expires: 10/22/2023 [facility] Comment on above: Expected: 10/24/2022 , Expires: 10/22/2023 Start: 10-24-2022 End: 10-22-2023 Hemoglobin A1c/Hemoglobin.total in Blood Hemoglobin A1c Lab Routine Type 2 diabetes mellitus without complication, without long-term current use of insulin ([facility]) ([facility]) Expected: 10/24/2022, Expires: 10/22/2023 [facility] [employer] Work Phone: Comment on above: Expected: 10/24/2022 , Expires: 10/22/2023 Start: 07-01-2022 Hemoglobin A1c measurement Diabetes: Hemoglobin A1C [facility] Start: 12-06-2020 Annual Wellness Visi t (AWV) Annual Wellness Visit (AWV) [place] Start: 12-05-2020 Creatinine measurement Creatinine mo nitoring [place] Start: 12-05-2020 Lipid panel Lipid screen [place] Start: 12-05-2020 Potassium monitoring Potassium monit [place]ing [place] Start: 07-01-2020 End: 07-01-2020 Office Visit 07/01/2020 Office Visit Neurology Robert Lu MD [address] [place] [address] [phone] [facility] Start: 06-08-2020 End: 06-08-2020 Office Visit 06/08/2020 Office Visit Family Medicine Zoë Kaplan, SHOVELER - OUTDOOR ADVENTURE INSTRUCTOR [address] [place] [address] [phone] [facility] Start: 05-13-2020 Creatinine measurement Creatinine mo nitoring [place] Start: 05-13-2020 Potassium monitoring Potassium monit [place]ing [place] Start: 04-30-2020 End: 04-30-2020 Office Visit 04/30/2020 Office Visit Neurology Robert Lu MD [address] [place] [address] [phone] [facility] [place] Start: 04-17-2020 Influenza vaccination Flu vacc ine (Season Ended) [place] Comment on above: Postponed from 03/10 (Patient Refused) Start: 12-11-2019 Lipid panel Lipid screen [place] Start: 12-28-2018 Annual Wellness Visi t (AWV) Annual Wellness Visit (AWV) [place] Start: 2013 RSV Immunization for Adults (1 - 1-dose 75+ series) RSV Immunization for Adults (1 - 1-dose 75+ series) [facility] Start: 2013 RSV Vaccine (1 - 1-d ose 75+ series) RSV Vaccine (1 - 1-dose 75+ series) [facility] Start: 1998 RSV Immunization age d 60 or older (1 - 1-dose 60+ series) RSV Immunization aged 60 or older (1 - 1-dose 60+ series) [facility] Start: 1998 RSV Vaccine (1 - 1-d ose 60+ series) RSV Vaccine (1 - 1-dose 60+ series) [facility] Start: 1956 Anxiety Screening Anxiety Screening [facility] Start: 1956 Depression Screening Depression Scre ening [facility] Start: 1950 Depression Screening Depression Scre [facility] Start: 1948 Diabetic foot examination Diabetic Foot Exam [facility] Start: 1948 Glaucoma screening Dilated Retinal E xam [facility] Start: 01-26-1939 Examination of skin Derm Melan samantha Skin Check [facility] CT Guidance for radiation treatment of Unspecified body region CT SIM PLANNING RADIATION ONCOLOGY Radiology Routine Intracranial meningioma (HCC) Ordered: 01/30/2025 [facility] Work Phone: Comment on above: Ordered: 01/30/2025 End: 03-15-2025 CT Head WO contrast CT BRAIN WO IVCON Radiology Routine SDH (subdural hematoma) (HCC) Meningioma, cerebral (HCC) 1 Occurrences starting 02/14/2024 until 03/15/2025 [facility] Work Phone: Comment on above: 1 Occurrences starti ng 02/14/2024 until 03/15/2025 CT Head WO contrast CT BRAIN WO IVCON Radiology Routine SDH (subdural hematoma) (HCC) Meningioma, cerebral (HCC) 02/19/2024 2:00 PM EDT [facility] Work Phone: End: 04-24-2026 CT Head WO contrast CT BRAIN WO IVCON Radiology Routine Intracranial meningioma (HCC) 1 Occurrences starting 03/25/2025 until 04/24/2026 [facility] Comment on above: 1 Occurrences starti ng 03/25/2025 until 04/24/2026 End: 02-07-2024 MR [facility] Work Phone: Comment on above: Once for 1 Occurrenc es starting 02/07/2024 until 02/07/2024 MR Brain WO and W contrast IV MRI BRAIN WO/W IVCON Radiology Routine Intracranial meningioma (HCC) 04/26/2024 8:28 AM EDT [facility] Work Phone: End: 06-19-2025 MR Brain WO and W contrast IV MRI BRAIN WO/W IVCON Radiology Routine Intracranial meningioma (HCC) 1 Occurrences starting 05/20/2024 until 06/19/2025 [facility] Work Phone: Comment on above: 1 Occurrences starti ng 05/20/2024 until 06/19/2025 MR Brain WO and W contrast IV MRI BRAIN WO/W IVCON Radiology Routine Intracranial meningioma (HCC) 08/01/2024 10:34 AM [facility] Work Phone: End: 08-31-2025 MR Brain WO and W contrast IV MRI BRAIN WO/W IVCON Radiology Routine Intracranial meningioma (HCC) 1 Occurrences starting 08/01/2024 until 08/31/2025 [facility] Work Phone: Comment on above: 1 Occurrences starti ng 08/01/2024 until 08/31/2025 End: 02-20-2026 MR Brain WO and W contrast IV MRI BRAIN WO/W IVCON Radiology Routine Intracranial meningioma (HCC) 1 Occurrences starting 01/21/2025 until 02/20/2026 [facility] Work Phone: Comment on above: 1 Occurrences starti ng 01/21/2025 until 02/20/2026 End: 02-07-2024 MR Orbit and Face and Neck WO and W contrast IV [employer] Work Phone: Comment on above: Once for 1 Occurrenc es starting 02/07/2024 until 02/07/2024 End: 03-20-2025 MR Pituitary and Sella turcica WO and W contrast IV MRI PITUITARY WO/W IVCON Radiology Routine Benign neoplasm of meninges (HCC) 1 Occurrences starting 02/19/2024 until 03/20/2025 [facility] Work Phone: Comment on above: 1 Occurrences starti ng 02/19/2024 until 03/20/2025 End: 08-31-2025 MR Pituitary and Sella turcica WO and W contrast IV MRI PITUITARY WO/W IVCON Radiology Routine Benign neoplasm of meninges (HCC) 1 Occurrences starting 08/01/2024 until 08/31/2025 [facility] Comment on above: 1 Occurrences starti ng 08/01/2024 until 08/31/2025 Tissue exam Tissue exam Path ology and Cytology Routine Neoplasm of uncertain behavior of skin of back 11/14/2022 11:57 AM EDT [employer] Work Phone: End: 04-18-2024 XR Chest PA and Lateral [facility] Work Phone: Comment on above: 1 Occurrences starti ng 04/18/2024 until 04/18/2024 End: 05-01-2020 XR LUMBAR SPINE (MIN 4 VIEWS) XR LUMBAR SPINE (MIN 4 VIEWS) Imaging Routine Once for 1 Occurrences starting 05/01/2020 until 05/01/2020 [employer] [place] Comment on above: Once for 1 Occurrenc es starting 05/01/2020 until 05/01/2020 XR LUMBAR SPINE (MIN 4 VIEWS) XR LUMBAR SPINE (MIN 4 VIEWS) Imaging Routine 05/01/2020 4:55 PM EDT [facility] [place] [place] End: 05-01-2020 XR LUMBAR SPINE AP LATERAL FLEXION AND EXTENSION XR LUMBAR SPINE AP LATERAL FLEXION AND EXTENSION Imaging Routine Lumbar radiculopathy 1 Occurrences starting 05/01/2020 until 05/01/2020 [facility] [place], [place] Comment on above: 1 Occurrences starti ng 05/01/2020 until 05/01/2020 Immunizations Immunization Date Immunization Notes Care Provider [facility] 04-08-2024 Seasonal trivalent influenza vaccine, adjuvanted, preservative free Ale Franks RN [facility] 04-08-2024 influenza virus vacc ine, unspecified formulation Linda Mckeon MD Work Phone: [facility] 04-04-2024 Influenza High-Dose Quadrivalent Zoë Kaplan TECHNICAL SALES ADVISOR-C Work Phone: [facility] 04-24-2023 influenza, injectabl e, quadrivalent, preservative free Zoë Kaplan TECHNICAL SALES ADVISOR-C Work Phone: [facility] 04-24-2023 Influenza, Seasonal, Quadrivalent, Adjuvanted Zoë Kaplan SHOVELER - [employer]DOOR ADVENTURE INSTRUCTOR Work Phone: [facility] 04-24-2023 influenza virus vacc ine, unspecified formulation Rachid Neville MD Work Phone: [facility] 06-08-2021 Influenza, High-dose Seasonal, Quadrivalent, Preservative Free Zoë Kaplan SHOVELER - OUTDOOR ADVENTURE INSTRUCTOR Work Phone: [facility] 06-08-2021 influenza virus vacc ine, unspecified formulation Zoë Kaplan SHOVELER - OUTDOOR ADVENTURE INSTRUCTOR Work Phone: [facility] 10-23-2020 Covid (Moderna) Zoë Kaplan TECHNICAL SALES ADVISOR-C Work Phone: [facility] 09-09-2020 Covid (Moderna) Zoë Kaplan TECHNICAL SALES ADVISOR-C Work Phone: [facility] 03-26-2020 Influenza, High-dose , Quadv, 65 yrs +, IM (Fluzone) Robert Lu [facility] 03-14-2019 zoster vaccine recombinant Zoë Eusebio SHOVELER - OUTDOOR ADVENTURE INSTRUCTOR Work Phone: [facility] 12-10-2018 tetanus toxoid, redu elizabeth diphtheria toxoid, and acellular pertussis vaccine, adsorbed Zoëjanki Kaplan [facility], [place] 11-27-2018 zoster vaccine recombinant Zoëjanki Kaplan [facility] 11-12-2018 pneumococcal polysaccharide vaccine, 23 val[address] Zoëjanki Kaplan [facility] 10-28-2018 zoster vaccine recombinant Zoëjanki Kaplan [facility] 01-23-2017 pneumococcal conjuga te vaccine, 13 valent [facility] 07-07-2008 hepatitis A vaccine, pediatric/adolescent dosage, 2 dose schedule [facility] [place] 07-07-2008 hepatitis B vaccine, adult dosage Zoë Eusebio SHOVELER - OUTDOOR ADVENTURE INSTRUCTOR Work Phone: [facility] 07-07-2008 hepatitis B vaccine, unspecified formulation [facility]anki [facility] [place] 02-04-2008 hepatitis B vaccine, adult dosage Zoë Eusebio SHOVELER - OUTDOOR ADVENTURE INSTRUCTOR Work Phone: [facility] 02-04-2008 hepatitis B vaccine, unspecified formulation [facility]anki [facility] [place] 01-01-2008 hepatitis A vaccine, pediatric/adolescent dosage, 2 dose schedule [facility]anki [facility] [place] 01-01-2008 hepatitis B vaccine, adult dosage Zoë Eusebio SHOVELER - OUTDOOR ADVENTURE INSTRUCTOR Work Phone: [facility] 01-01-2008 hepatitis B vaccine, unspecified formulation [facility] [place] 01-01-2008 tetanus toxoid, adsorbed Zoëjanki Kaplan [facility], [place] 01-01-2008 typhoid capsular polysaccharide vaccine [place] Eusebio [facility], [place] Payers Date Payer Category Payer Self-pay 2023 Medicare (Managed Care) [employer] DICARE [id number] 2021 Medicare [id number] 2021 Medicare HMO AETNA MEDICARE [place] [facility] Address: [address] [place] [address] [id number] 2021 Private Health Insurance [facility] [id number] 2014 Medicare AETNA MEDICARE A ETNA MEDICARE-ADVANTAGE O [id number] 2014-Present [address] [place] [address] Medicare [id number] 2014 Medicare AETNA MEDICARE A ETNA MEDICARE-ADVANTAGE O xxxxxxxx 2014-Present [address] [place] [address] Medicare [id number] Unknown [id number] Unknown [id number] Unknown [id number] 462 Unknown [id number] 462 Unknown [id number] 462 Unknown [id number] 462 Unknown [id number] 462 Unknown [id number] 462 Unknown [id number] 462 Unknown [id number] 462 Unknown [id number] 462 Social History Date Type Detail Facility Start: 04-06-2020 End: 07-04-2024 Tobacco smoking status NHIS Never smoker [place] Start: 04-06-2020 End: 07-04-2024 Tobacco use and exposure Never used [place] Start: 04-06-2020 End: 03-24-2025 Alcohol intake Current drinker of alcohol (finding) [place] Start: 04-06-2020 History SDOH Alcohol Frequency 2 [place] Start: 1940 Sex Assigned At Not on file [place] Start: 10-14-2022 End: 10-24-2022 Exposure to SARS-CoV-2 (event) Not sure [place] Exposure to SARS-CoV -2 (event) Unable to assess [place] Start: 10-24-2022 End: 04-15-[address] [facility] Start: 11-14-2022 End: 04-15-[address] [facility] Start: 05-13-2013 Adolescent depressio n screening assessment 0 [facility] Has the [employer], [employer], or water company threatened to shut off services in your home in past 12Mo No [facility] (I/We) worried sara er (my/our) food would run out before (I/we) got money to buy more. Never true [facility] Start: 07-06-2010 End: 04-08-2024 Alcohol Comment occasional [facility] Start: 02-19-2024 End: 01-21-2025 Alcohol intake Ex-drinker (finding) [facility] Do you belong to any clubs or organizations such as uatsdin groups, unions, fraternal or athletic groups, or school groups? Yes [facility] Are you now , , , , never or living with a partner? [facility] How often to you hav e a drink containing alcohol? Never [facility] Do you feel stress - tense, restless, nervous, or anxious, or unable to sleep at night because your mind is troubled all the time - these days [OSQ] Not at all [facility] Start: 02-07-2022 Sex Female (finding) [facility] How often do you nee d to have someone help you when you read instructions, pamphlets, or other written material from your doctor or pharmacy [SILS] Rarely [facility] Start: 1940 Sex Assigned At Female W [facility] NEGATED: Highlighted rowStart: NINF History of tobacco use Passive smoker [facility] Medical Equipment Procedure Code Equipment Code Equipment Original Text Equipment Identifier Dates [id number] Start: 09-27-2021 End: 04-08-2024 use to TEST BLOO D SUGAR once daily and if needed [id number] Start: 09-27-2021 Max Bn Smpx P Tobra Fd - [id number] Start: 05-07-2013 Comment on above: Description: full do se Graft Dura 2x2in Ptch Rsrb - [id number] Start: 09-24-2010 Qry-Us-V-Kind Implant - [id number] Start: 09-24-2010 Comment on above: Description: LOW PRO FILE BUR HOLE COVER Yaj-Db-C-Kind Implant - [id number] Start: 09-24-2010 Comment on above: Description: LOW PRO FILE DOGBONE Ins Tib 4 Thk9mm 9mm Kn X3 - [id number] Start: 05-07-2013 Comment on above: Description: [employer] X3 Tibial Bearing Insert - PS, 4, 9mm Comp Pat 10mm 32mm Asym Trthln - [id number] Start: 05-07-2013 Comment on above: Description: [place] [employer] X3 Asymmetric Patella, A32, 10mm Comp Fem 4 Lt Kn Ps Max Trthln - [id number] Start: 05-07-2013 Comment on above: Description: [place] [employer] Posterior Stabilized Femoral #4, PS, LFT Baseplt Tib Trthln 4 Prim - [id number] Start: 05-07-2013 Comment on above: Description: [employer] Primary Tibial Baseplaste #4 Screw Selftap 1.5x4mm - [id number] Start: 09-24-2010 Graft Duragen Plus Bovine Collagen Matrix 3x3in Soft Tissue Patch - [id number] Start: 04-26-2024 Scrw Ond Mandib Ul Lp Df 1.5x4 [id number] Start: 04-26-2024 Level One Neuro Screw Onedrive Drill Free V2 1.5 X 5 Mm Ti-6al-4v Qty1ea - [id number] Start: 04-26-2024 L1 Neuro [facility] [facility] Cov Ultraone Contour W/Tab Scrw 6 Hl 18mm D T0.35mm Ti - [id number] Start: 04-26-2024 Goals Date Patient Goal Desired Activity /State Comment on above: Self- Management Goa ls: Below is a list of objectives your doctor would like you to consider working on help improve your overall health. Which objectives would you like to work on: Objective: overall health Barriers to success: none Plan for overcoming my barriers: n/a Confidence: moderate in terms of implementation Date goal set: today Patient given educational materials below via AVS. Patient received counseling about current lifestyle goal. Patient was informed that they should never smoke. If they are smoker, the need to work on quitting. Advised Alcohol only in moderation. Advised approximately 150 minutes of cardio, i.e treadmill, exercise in a week. Advised strive for 5 a total 5 servings of fruits and vegetables in a day. Advised a diet lower in carbohydrates and simple sugars. They need to watch consumption of bread, rice, pasta, potatoes, corn, soda, sweetened tea, lemonade, and all other sugar drinks. Patient given after visit summary which includes this educational information Discussed use, benefit, and side effects of prescribed medications and barriers to medication compliance addressed, if applicable. All patient questions answered. Patient was given a copy of this, and was advised to call if any questions. Comment on above: Self- Management Goa ls: Below is a list of objectives your doctor would like you to consider working on help improve your overall health. Which objectives would you like to work on: Objective: overall health Barriers to success: none Plan for overcoming my barriers: n/a Confidence: moderate in terms of implementation Date goal set: today Patient given educational materials below via AVS. Patient received counseling about current lifestyle goal. Patient was informed that they should never smoke. If they are smoker, the need to work on quitting. Advised Alcohol only in moderation. Advised approximately 150 minutes of cardio, i.e treadmill, exercise in a week. Advised strive for 5 a total 5 servings of fruits and vegetables in a day. Advised a diet lower in carbohydrates and simple sugars. They need to watch consumption of bread, rice, pasta, potatoes, corn, soda, sweetened tea, lemonade, and all other sugar drinks. Patient given after visit summary which includes this educational information Discussed use, benefit, and side effects of prescribed medications and barriers to medication compliance addressed, if applicable. All patient questions answered. Patient was given a copy of this, and was advised to call if any questions. Functional Status Date Assessment Result Facility 05-03-2024 Are you deaf, or do you have serious difficulty hearing No 05/03/2024 11:03 AM BOGDANT Ligia Urena RN No [facility] 05-03-2024 Are you blind, or do you have serious difficulty seeing, even when wearing glasses No 05/03/2024 11:03 AM Ligia Bermudez RN No [facility] 05-03-2024 Do you have serious difficulty walking or climbing stairs No 05/03/2024 11:03 AM Ligia Bermudez RN No [facility] 05-03-2024 Do you have difficul ty dressing or bathing No 05/03/2024 11:03 AM Ligia Bermudez RN No [facility] 05-03-2024 Because of a physica l, mental, or emotional condition, do you have difficulty doing errands alone such as visiting a physician's office or shopping No 05/03/2024 11:03 AM Ligia Bermudez RN No [facility] Mental Status Date Assessment Result Facility 05-03-2024 Because of a physica l, mental, or emotional condition, do you have serious difficulty concentrating, remembering, or making decisions No 05/03/2024 11:03 AM Ligia Bermudez RN No [facility] Clinical Notes 10-24-2022 to 04-03-2025 Addendum Note - Karli Cox RN - 03/25/2025 5:01 PM EDTAddendum Note - Karli Cox RN - 03/25/2025 5:01 PM EDTTelephone Encounter - Karli Cox RN - 03/25/2025 4:51 PM EDTPatient Instructions Note Date & Type Note Facility 04-03-2025 Note HNO ID: [id number] Author: LINDA MCKEON MD Service: ? Author Type: Physician Type: Progress Notes Filed: 04/03/2025 14:06 Note Text: I have communicated my name and active licensure. The patient's identity and physical location were verified at the time of this visit. Either the patient or their legal veterans service representative has been informed of the risks and benefits of -- and alternatives to -- treatment through a remote evaluation and consents to proceed with the evaluation remotely. Omar Evans is a 84 year old female. 1. 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 s/p radiation treatment finished on 02/25/25. 2. 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 She denies any headaches. She continues to have fatigue and episodes of confusion. She has urine culture results pending. CT brain on 03/30/25 showed, Postoperative changes as detailed above with increasing vasogenic edema within the anterior LEFT frontal lobe which could be posttreatment related Assessment AND Plan Radiotherapy follow-up Intracranial meningioma (HCC) Her symptoms may be possibly from underlying UTI. Her urine culture is pending. She was found to have increasing vasogenic edema on CT brain that could be post-treatment related. She doesn't have any headaches or nausea, though. Steroids also have side effects such as insomnia which could worsen her confusion. She is scheduled to have MRI brain next month and then see her neurosurgeon, Dr. Jeronimo. I will see her in three months for a follow-up. Visit was conducted via Audio-only Patient Location: Patient Home or Place of Residence [facility] 04-01-2025 Note Unfortunately, I was advised that they are not taking any new clients at this time. [facility] was my initial plan. Our jewelry sales coordinator had found the other provider that accepted the insurance. Maybe Amanda can reach out with alternative option? [facility] 03-31-2025 Note HNO ID: [id number] Author: LINDA MCKEON MD Service: ? Author Type: Physician Type: Progress Notes Filed: 03/31/2025 14:18 Note Text: I have communicated my name and active licensure. The patient's identity and physical location were verified at the time of this visit. Either the patient or their legal veterans service representative has been informed of the risks and benefits of -- and alternatives to -- treatment through a remote evaluation and consents to proceed with the evaluation remotely. Omar Evans is a 84 year old female. 1. 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 s/p radiation treatment finished on 02/25/25. 2. 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 Her daughter told me that the patient has increased general weakness/fatigue and episodes of confusion. She was seen by her PCP and blood work was done. Physical therapy was recommended. She then reached out to her neurosurgeon, Dr. Jeronimo. Urine culture and UA were ordered. CT brain is scheduled this Monday. Assessment AND Plan Radiotherapy follow-up Intracranial meningioma (HCC) I encouraged her to take her mother to a lab for urine culture and UA. I explained to her that UTI in elderly can possibly cause fatigue and confusion. She expressed understandings and told me that she will do that. She will have CT brain on Monday. She is scheduled to have a follow-up with me next week. Visit was conducted via Audio-only Patient Location: Patient Home or Place of Residence [facility] 03-28-2025 Note HNO ID: [id number] Author: WYATT CARNEY RT(Ronit) Service: Radiology Author Type: Technologist Type: Progress Notes Filed: 03/28/2025 10:09 Note Text: Radiology Service Progress Note PATIENT NAME: Reshma Evans DATE OF SERVICE: March 28, 2025 TIME: 10:09 AM PATIENT IDENTITY VERIFICATION COMPLETED USING TWO (2) IDENTIFIERS: Name and Date of confirmed by patient verbally and Name and Date of confirmed by identification band. FALL SCREENING: Has the patient had 2 falls in the last year or 1 fall with injury or currently using an Ambulatory Assistive Device (Walker, Cane, Wheelchair, Crutches, etc.)? No PATIENT GENDER DATA: Assigned female at . status: : No status: NO. PATIENT RELEVANT IMPLANT DATA REVIEWED: Not Applicable PATIENT PRESENTS WITH AN IMPLANTABLE OR ATTACHED ASSISTED LIVING COORDINATOR: No RADIOLOGY DEPARTMENT: CT; Exam(s) Completed: Brain . Anesthesia: No PERIPHERAL IV DATA: Not applicable SIGNED BY: RT Marina(R) March 28, 2025 10:09 AM [facility] 03-25-2025 Note Addended by: KARLI COX on: 03/25/2025 05:01 PM Modules accepted: Orders [facility] 03-25-2025 Miscellaneous Notes Addended by: KARLI COX on: 03/25/2025 05:01 PM Modules accepted: Orders Called patient's daughter, she stated that Reshma's PCP stated her labs were fine, but they did not order a UA. I told her we can order a UA and UC to see how her urine looks. I told them they could go to any [facility] lab to get these done. I told her as well that Dr Jeronimo said we can do a CT brain on Reshma to rule out anything due to her new confusion and weakness. Let Trina know I would have someone call her to get this scheduled. She is aware that we can move up the MRI to April depending on the CT scan and how Reshma is doing. Trina was very appreciative of all the help today. Karli Cox RN Patient's daughter Trina called in. They've noticed these changes after radiation - radiation completed 02/25/2025. They noticed her energy has decreased since then. A week ago Monday she started having more weakness. She stated last week she had an episode of weakness, trouble getting out of bed, no strength, no energy, once they got her out of bed she was able to walk with rollator. Her found her one day of the ground next to the bed, she was stretching but when asked why she was on the ground she said I dont know and she couldn't remember if she fell or not. She has been having episodes of confusion, weakness, and confusion. They were concerned and wanted to call in. They said she has been saying I don't know I'm so confused She saw her PCP yesterday who did they blood work, and recommended to do physical therapy. I asked if they did a urine culture - her daughter was not sure if they did a urine. I recommended she get a urine sample done to rule out a UTI. They are waiting for PCP to call back with blood work results. I told Trina I would discuss with with Dr. Jeronimo and get back to her. Karli Cox RN documented in this encounter [facility] 03-25-2025 Telephone encounter Note Called patient's daughter, she stated that Reshma's PCP stated her labs were fine, but they did not order a UA. I told her we can order a UA and UC to see how her urine looks. I told them they could go to any [facility] lab to get these done. I told her as well that Dr Jeronimo said we can do a CT brain on Reshma to rule out anything due to her new confusion and weakness. Let Trina know I would have someone call her to get this scheduled. She is aware that we can move up the MRI to April depending on the CT scan and how Reshma is doing. Trina was very appreciative of all the help today. Karli Cox RN [facility] 03-25-2025 Note Please sign new refe rral. You will need to fill in two spots regarding the situation and why PT is being ordered. [facility] 03-25-2025 Telephone encounter Note Called and spoke to daughter Trina. Patient had previously given permission to speak to daughter who helps coordinate patient's care and transportation, reviewed results of recent labs. Recommend patient follow-up with oncology and her neurologist. Begin physical therapy. Referral was previously placed. [facility] 03-25-2025 Miscellaneous Notes Called and spoke to daughter Trina. Patient had previously given permission to speak to daughter who helps coordinate patient's care and transportation, reviewed results of recent labs. Recommend patient follow-up with oncology and her neurologist. Begin physical therapy. Referral was previously placed. Left message-not available. Will try again later today Name of caller: Trina Contact phone number: [phone] Relationship to Patient: family member patient and daughter Provider: Dr. Neville Practice: [facility] Chief Complaint/Reason for Call: Trina requesting a call back to discuss patients results. Did not release information to Trina as she is not on new communication form. Please advise. Best time of day caller can be reached: any Patient advised that office/PCP has 24-48 business hours to return their call: Yes documented in this encounter [facility] [employer] 03-25-2025 Telephone encounter Note Left message-not available. Will try again later today [facility] [employer] 03-25-2025 Telephone encounter Note Patient's daughter Trina called in. They've noticed these changes after radiation - radiation completed 02/25/2025. They noticed her energy has decreased since then. A week ago Monday she started having more weakness. She stated last week she had an episode of weakness, trouble getting out of bed, no strength, no energy, once they got her out of bed she was able to walk with rollator. Her found her one day of the ground next to the bed, she was stretching but when asked why she was on the ground she said I dont know and she couldn't remember if she fell or not. She has been having episodes of confusion, weakness, and confusion. They were concerned and wanted to call in. They said she has been saying I don't know I'm so confused She saw her PCP yesterday who did they blood work, and recommended to do physical therapy. I asked if they did a urine culture - her daughter was not sure if they did a urine. I recommended she get a urine sample done to rule out a UTI. They are waiting for PCP to call back with blood work results. I told Trina I would discuss with with Dr. Jeronimo and get back to her. Karli Cox, RN [facility] 03-25-2025 Telephone encounter Note Name of caller: Trina Contact phone number: [phone] Relationship to Patient: family member patient and daughter Provider: Dr. Neville Practice: [facility] Chief Complaint/Reason for Call: Trina requesting a call back to discuss patients results. Did not release information to Trina as she is not on new communication form. Please advise. Best time of day caller can be reached: any Patient advised that office/PCP has 24-48 business hours to return their call: Yes [facility] 03-24-2025 Evaluation + Plan note Associated Problem(s): Weakness of both legs Unsure etiology. Does have some generalized weakness. Will check labs. Follow-up with neurologist as directed, will start home physical therapy for strength training [facility] 03-24-2025 Miscellaneous Notes Associated Problem(s): Weakness of both legs Unsure etiology. Does have some generalized weakness. Will check labs. Follow-up with neurologist as directed, will start home physical therapy for strength training Associated Problem(s): Neuropathy Controlled, continue gabapentin 100 mg twice daily Associated Problem(s): Type 2 diabetes mellitus with hyperlipidemia (HCC) Check hemoglobin A1c. documented in this encounter [facility] 03-24-2025 Miscellaneous Notes Associated Problem(s): Weakness of both legs Unsure etiology. Does have some generalized weakness. Will check labs. Follow-up with neurologist as directed, will start home physical therapy for strength training Associated Problem(s): Neuropathy Controlled, continue gabapentin 100 mg twice daily Associated Problem(s): Type 2 diabetes mellitus with hyperlipidemia (HCC) Check hemoglobin A1c. Addended by: LASHAUN SPIVEY on: 03/25/2025 04:11 PM Modules accepted: Level of Service documented in this encounter [facility] 03-24-2025 Evaluation + Plan note Associated Problem(s): Neuropathy Controlled, continue gabapentin [address] [facility] 03-24-2025 Evaluation + Plan note Associated Problem(s): Type 2 diabetes mellitus with hyperlipidemia (HCC) Check hemoglobin A1c. [facility] 03-24-2025 History of Present illness Narrative Patient was identified by name and Date of . Health Maintenance Due Topic RSV Immunization for Adults- Derm Melanoma Skin Check - Medicare Advantage Annual Wellness Visit- COVID-19 Vaccine- Influenza Vaccine Images from the original note were not included. 03/24/2025 Reshma Evans (: 1940) is a 84 y.o. female , Established patient, here for evaluation of the following chief complaint(s): Weakness, Gen; Extremity Weakness; Shaking; and Fall ASSESSMENT/PLAN: 1. Weakness of both legs Assessment & Plan: Unsure etiology. Does have some generalized weakness. Will check labs. Follow-up with neurologist as directed, will start home physical therapy for strength training Orders: - Comprehensive metabolic panel - CBC auto differential - TSH - [facility] 2. Type 2 diabetes mellitus with hyperlipidemia (HCC) Assessment & Plan: Check hemoglobin A1c. Orders: - Hemoglobin A1c 3. Neuropathy Assessment & Plan: Controlled, continue gabapentin 100 mg twice daily Follow up for as directed pending test results. SUBJECTIVE/OBJECTIVE: HPI - Reshma Evans (: 1940) is a 84 y.o. female , Established patient, here for the evaluation of the following chief complaint(s): Weakness, Gen; Extremity Weakness; Shaking; and Fall Presents with son in law. (Trina- old est daughter) For increased falls and weakness. Reports having weakness, shaking and falls at home. Had fallen last week out of the recliner (slid out of it). PENNY worried that she may not be eating well. No loss of conscioiiusness. Patient reports her symptoms have been gradually worsening. She does see neurology for seizure disorder and history of intracranial meningioma. She had brain surgery earlier this year and follows with oncology for radiation therapy and neurology. She sees radiology oncology on April 02, 2025 and her neurosurgeon on June 02, 2025. She is not getting any physical therapy at home. She is using a front wheel walker consistently. Family is helping with medications. Using a med box reminder. She has not had any labs done in quite some time. Diabetes-previously very well-controlled her hemoglobin A1c was less than 6 in April 2024. Current Medications[1] Review of Systems Constitutional: Positive for activity change and fatigue. Negative for appetite change and fever. HENT: Negative. Respiratory: Negative. Cardiovascular: Negative. Musculoskeletal: Negative. Neurological: Positive for weakness (mostly in her legs). Negative for dizziness, seizures, speech difficulty, light-headedness and headaches. Vitals: 03/24/25 1051 BP: 116/67 Pulse: 90 Resp: 24 Temp: 37.2 C (99 F) TempSrc: Infrared SpO2: 92% Weight: 184 lb (83.5 kg) Physical Exam Constitutional: General: She is not in acute distress. Appearance: She is not ill-appearing. Comments: Using front wheel walker. Get up and go less than 20, gait steady with walker HENT: Head: Normocephalic and atraumatic. Ears: Comments: Bilateral hearing loss Mouth/Throat: Mouth: Mucous membranes are moist. Pharynx: Oropharynx is clear. Eyes: Comments: She does have some periorbital swelling noted over the left eye-reports this is unchanged since her brain surgery earlier this year. Musculoskeletal: Comments: Push pull 4 out of 5 lower extremities bilaterally. 4 out of 5 upper right extremity push pull. 4 out of 5 pull on left upper extemity. Limited strength upper extremity push on the left. Grasp equal bilateral Neurological: Mental Status: She is alert. An electronic signature was used to authenticate this note. Lashaun Spivey, IFEANYI - NELLY 03/24/2025 4:54 PM [1] Current Outpatient Medications Medication Sig Dispense Refill acetaminophen (Tylenol) 500 MG tablet 1,000 mg by Enteral route 4 times a day. ascorbic acid (Vitamin C) 500 MG tablet Take 500 mg by mouth daily. Cyanocobalamin (Vitamin B-12) [address] under the tongue. fluorometholone (FML) 0.1 % ophthalmic suspension INSTILL 1 DROP INTO LEFT EYE TWICE DAILY gabapentin (Neurontin) 100 MG capsule TAKE 1 CAPSULE TWICE A DAY 180 capsule 3 levETIRAcetam (Keppra) 750 MG tablet Take 2 tablets (1,500 mg) by mouth daily. 180 tablet 1 Multiple Vitamin (multivitamin) capsule Take 1 capsule by mouth daily. nystatin (Mycostatin) 375046 UNIT/GM powder Apply topically three times daily. 30 g 0 omega-3 (Fish Oil) 1000 MG capsule Take 3,000 mg by mouth. pantoprazole (ProtoNix) 40 MG EC tablet Take 40 mg by mouth. propranolol (Inderal) 10 MG tablet TAKE ONE AND ONE-HALF TABLETS TWICE A DAY 270 tablet 3 rosuvastatin (Crestor) 10 MG tablet TAKE 1 TABLET DAILY 90 tablet 1 triamcinolone (Kenalog) 0.5 % cream Apply topically 3 times daily. 30 g 0 VITAMIN D PO Take by mouth. vitamin E 180 MG (400 UNIT) capsule Take 180 mg by mouth daily. No current facility-administered medications for this visit. documented in this encounter [facility] 03-24-2025 History of Present illness Narrative Patient was identified by name and Date of . Health Maintenance Due Topic RSV Immunization for Adults- Derm Melanoma Skin Check - Medicare Advantage Annual Wellness Visit- COVID-19 Vaccine- Influenza Vaccine Images from the original note were not included. 03/24/2025 Reshma Evans (: 1940) is a 84 y.o. female , Established patient, here for evaluation of the following chief complaint(s): Weakness, Gen; Extremity Weakness; Shaking; and Fall ASSESSMENT/PLAN: 1. Weakness of both legs Assessment & Plan: Unsure etiology. Does have some generalized weakness. Will check labs. Follow-up with neurologist as directed, will start home physical therapy for strength training Orders: - Comprehensive metabolic panel - CBC auto differential - TSH - [facility] 2. Type 2 diabetes mellitus with hyperlipidemia (HCC) Assessment & Plan: Check hemoglobin A1c. Orders: - Hemoglobin A1c 3. Neuropathy Assessment & Plan: Controlled, continue gabapentin 100 mg twice daily Follow up for as directed pending test results. SUBJECTIVE/OBJECTIVE: HPI - Reshma Evans (: 1940) is a 84 y.o. female , Established patient, here for the evaluation of the following chief complaint(s): Weakness, Gen; Extremity Weakness; Shaking; and Fall Presents with son in law. (Trina- old est daughter) For increased falls and weakness. Reports having weakness, shaking and falls at home. Had fallen last week out of the recliner (slid out of it). PENNY worried that she may not be eating well. No loss of conscioiiusness. Patient reports her symptoms have been gradually worsening. She does see neurology for seizure disorder and history of intracranial meningioma. She had brain surgery earlier this year and follows with oncology for radiation therapy and neurology. She sees radiology oncology on April 02, 2025 and her neurosurgeon on June 02, 2025. She is not getting any physical therapy at home. She is using a front wheel walker consistently. Family is helping with medications. Using a med box reminder. She has not had any labs done in quite some time. Diabetes-previously very well-controlled her hemoglobin A1c was less than 6 in April 2024. Current Medications[1] Review of Systems Constitutional: Positive for activity change and fatigue. Negative for appetite change and fever. HENT: Negative. Respiratory: Negative. Cardiovascular: Negative. Musculoskeletal: Negative. Neurological: Positive for weakness (mostly in her legs). Negative for dizziness, seizures, speech difficulty, light-headedness and headaches. Vitals: 03/24/25 1051 BP: 116/67 Pulse: 90 Resp: 24 Temp: 37.2 C (99 F) TempSrc: Infrared SpO2: 92% Weight: 184 lb (83.5 kg) Physical Exam Constitutional: General: She is not in acute distress. Appearance: She is not ill-appearing. Comments: Using front wheel walker. Get up and go less than 20, gait steady with walker HENT: Head: Normocephalic and atraumatic. Ears: Comments: Bilateral hearing loss Mouth/Throat: Mouth: Mucous membranes are moist. Pharynx: Oropharynx is clear. Eyes: Comments: She does have some periorbital swelling noted over the left eye-reports this is unchanged since her brain surgery earlier this year. Musculoskeletal: Comments: Push pull 4 out of 5 lower extremities bilaterally. 4 out of 5 upper right extremity push pull. 4 out of 5 pull on left upper extemity. Limited strength upper extremity push on the left. Grasp equal bilateral Neurological: Mental Status: She is alert. An electronic signature was used to authenticate this note. Lashaun Spivey, IFEANYI - [facility] 03/24/2025 4:54 PM [1] Current Outpatient Medications Medication Sig Dispense Refill acetaminophen (Tylenol) 500 MG tablet 1,000 mg by Enteral route 4 times a day. ascorbic acid (Vitamin C) 500 MG tablet Take 500 mg by mouth daily. Cyanocobalamin (Vitamin B-12) [address] under the tongue. fluorometholone (FML) 0.1 % ophthalmic suspension INSTILL 1 DROP INTO LEFT EYE TWICE DAILY gabapentin (Neurontin) 100 MG capsule TAKE 1 CAPSULE TWICE A DAY 180 capsule 3 levETIRAcetam (Keppra) 750 MG tablet Take 2 tablets (1,500 mg) by mouth daily. 180 tablet 1 Multiple Vitamin (multivitamin) capsule Take 1 capsule by mouth daily. nystatin (Mycostatin) 121769 UNIT/GM powder Apply topically three times daily. 30 g 0 omega-3 (Fish Oil) 1000 MG capsule Take 3,000 mg by mouth. pantoprazole (ProtoNix) 40 MG EC tablet Take 40 mg by mouth. propranolol (Inderal) 10 MG tablet TAKE ONE AND ONE-HALF TABLETS TWICE A DAY 270 tablet 3 rosuvastatin (Crestor) 10 MG tablet TAKE 1 TABLET DAILY 90 tablet 1 triamcinolone (Kenalog) 0.5 % cream Apply topically 3 times daily. 30 g 0 VITAMIN D PO Take by mouth. vitamin E 180 MG (400 UNIT) capsule Take 180 mg by mouth daily. No current facility-administered medications for this visit. documented in this encounter [facility] 03-24-2025 Note Addended by: LASHAUN ADAMS on: 03/25/2025 04:11 PM Modules accepted: Level of Service [facility] 03-24-2025 Note Addended by: LASHAUN ADAMS on: 03/25/2025 04:11 PM Modules accepted: Level of Service [facility] 03-24-2025 Note Patient was identifi ed by name and Date of . Health Maintenance Due Topic RSV Immunization for Adults- Derm Melanoma Skin Check - Medicare Advantage Annual Wellness Visit- [facility]-19 Vaccine- Influenza Vaccine [facility] 03-24-2025 Telephone encounter Note S: Patient's spouse spoke with CAC nurse regarding patient's weak B: Onset of symptoms/concern several weeks A: Patient is weak, fallen several times. Patient is eating and drinking. Patient had radiation treatments following surgery. Spouse is seeking an appointment to have patient checked out. Patient denies flu/covid sx, has not tested for either. R: Patient scheduled for OV today with Judie Spivey CNP at 10:40 am. Insurance verified. Patient instructed to arrive 15 minutes prior to appointment, bring photo ID, insurance cards, copayment if required. Patient understands home care advice. Patient instructed to call back with new or worsening symptoms. Reason for Disposition MODERATE weakness (e.g., interferes with work, school, normal activities) and cause unknown (Exceptions: Weakness from acute minor illness or from poor fluid intake; weakness is chronic and not worse.) Protocols used: Weakness (Generalized) and [id number] [facility] 03-24-2025 Miscellaneous Notes S: Patient's spouse spoke with CAC nurse regarding patient's weak B: Onset of symptoms/concern several weeks A: Patient is weak, fallen several times. Patient is eating and drinking. Patient had radiation treatments following surgery. Spouse is seeking an appointment to have patient checked out. Patient denies flu/covid sx, has not tested for either. R: Patient scheduled for OV today with Judie Spivey CNP at 10:40 am. Insurance verified. Patient instructed to arrive 15 minutes prior to appointment, bring photo ID, insurance cards, copayment if required. Patient understands home care advice. Patient instructed to call back with new or worsening symptoms. Reason for Disposition MODERATE weakness (e.g., interferes with work, school, normal activities) and cause unknown (Exceptions: Weakness from acute minor illness or from poor fluid intake; weakness is chronic and not worse.) Protocols used: Weakness (Generalized) and [id number] documented in this encounter [facility] 02-25-2025 Note HNO ID: [id number] Author: OFELIA BEAN RN Service: ? Author Type: Registered Nurse Type: Progress Notes Filed: 02/25/2025 13:45 Note Text: Written discharge instructions given and reviewed with patient. Patient verbalizes understanding. Encouraged to call with any questions or concerns. Instruction for 4 week follow up appointment given by Dr. Mckeon.Offered patient, in person, virtual and phone call visit, she and son chose to do phone call as most convenient. [facility] 02-25-2025 History of Present illness Narrative Written discharge instructions given and reviewed with patient. Patient verbalizes understanding. Encouraged to call with any questions or concerns. Instruction for 4 week follow up appointment given by Dr. Mckeon.Offered patient, in person, virtual and phone call visit, she and son chose to do phone call as most convenient. documented in this encounter [facility] 02-25-2025 Note HNO ID: [id number] Author: LINDA MCKEON MD Service: ? Author Type: Physician Type: Progress Notes Filed: 02/25/2025 11:12 Note Text: Radiation Oncology - On Treatment Review (OTR) Note PATIENT NAME: Reshma Evans PATIENT DIAGNOSIS: 1. 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 2. 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 EXAM: KPS: 90 General Appearance: Alert and oriented. No acute distress. Radiation dermatitis: No IMAGING/LAB RESULTS: None Treatment chart checked: Yes Patient treatment site reviewed and verified:Yes CBCTs reviewed and current:Yes Medications started: None ASSESSMENT/PLAN: Clinically stable. Side effects within expected parameters. Regarding her hearing, I recommended hearing tests. She and her son will contact her PCP to arrange it. She finished radiation treatment as planned today. Follow-up in 4 weeks. Linda Mckeon MD [facility] 02-25-2025 History of Present illness Narrative Radiation Oncology - On Treatment Review (OTR) Note PATIENT NAME: Reshma Evans PATIENT DIAGNOSIS: 1. 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 2. 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 EXAM: KPS: 90 General Appearance: Alert and oriented. No acute distress. Radiation dermatitis: No IMAGING/LAB RESULTS: None Treatment chart checked: Yes Patient treatment site reviewed and verified:Yes CBCTs reviewed and current:Yes Medications started: None ASSESSMENT/PLAN: Clinically stable. Side effects within expected parameters. Regarding her hearing, I recommended hearing tests. She and her son will contact her PCP to arrange it. She finished radiation treatment as planned today. Follow-up in 4 weeks. Linda Mckeon MD Radiation Therapy - Nursing Note (OTV) PATIENT NAME: Reshma Evans PATIENT February 25, 2025 [facility] FACILITY/LOCATION: [place] NURSING NOTE TYPE: DIAMOND GRADER Subjective Data Still has occasional headache at night but not bad: Additional Data Do you want to see a Metal Tile Lather? No Status: Post-menopausal. Stress Scale: On a scale of 0 to 10, what number best describes how much distress you have experienced in the past week?(0 being no distress and 10 being extreme distress) 3 Social work notified: Pt denied need to see social work case manager at this time. Nursing Assessment Fatigue: none Appetite: good Nutritional Intake: Regular oral intake. Weight Gain/Loss: Not applicable Ambulatory weight history: Last 6 Encounter Wt Readings: Date: Wt: 01/21/2025 85.9 kg (189 lb 6 oz) 01/16/2025 77.6 kg (171 lb) 12/26/2024 84.8 kg (187 lb) 11/04/2024 83.2 kg (183 lb 6.8 oz) 08/01/2024 82.4 kg (181 lb 10.5 oz) 08/01/2024 82.4 kg (181 lb 10.5 oz) Nausea:None Vomiting: None Bowel Function: normal bowel movements Erythema/Hyperpigmentation:some redness above left eye Desquamation:none Rash:none Skin Care: Aquaphor Skin Sensation: Within Normal Limits Focused Assessment DIAMOND GRADER: Alopecia: no. Headache: mild. Vision changes: no changes. Arm/leg numbness: none. Limb coordination: none. Memory changes: yes per - son reported this. Syncope: none. Disorientation: none. Seizures: none. Hearing changes: No.- Son states pts hearing does seem to be worse and discussed with Dr Mckeon last week, encouraged to discusse again SIGNED by: Ofelia Bean RN documented in this encounter [facility] 02-25-2025 Note HNO ID: [id number] Author: OFELIA BEAN RN Service: ? Author Type: Registered Nurse Type: Progress Notes Filed: 02/25/2025 11:12 Note Text: Radiation Therapy - Nursing Note (OTV) PATIENT NAME: Reshma Evans PATIENT February 25, 2025 [facility] FACILITY/LOCATION: [place] NURSING NOTE TYPE: DIAMOND GRADER Subjective Data Still has occasional headache at night but not bad: Additional Data Do you want to see a Metal Tile Lather? No Status: Post-menopausal. Stress Scale: On a scale of 0 to 10, what number best describes how much distress you have experienced in the past week?(0 being no distress and 10 being extreme distress) 3 Social work notified: Pt denied need to see social work case manager at this time. Nursing Assessment Fatigue: none Appetite: good Nutritional Intake: Regular oral intake. Weight Gain/Loss: Not applicable Ambulatory weight history: Last 6 Encounter Wt Readings: Date: Wt: 01/21/2025 85.9 kg (189 lb 6 oz) 01/16/2025 77.6 kg (171 lb) 12/26/2024 84.8 kg (187 lb) 11/04/2024 83.2 kg (183 lb 6.8 oz) 08/01/2024 82.4 kg (181 lb 10.5 oz) 08/01/2024 82.4 kg (181 lb 10.5 oz) Nausea:None Vomiting: None Bowel Function: normal bowel movements Erythema/Hyperpigmentation:some redness above left eye Desquamation:none Rash:none Skin Care: Aquaphor Skin Sensation: Within Normal Limits Focused Assessment DIAMOND GRADER: Alopecia: no. Headache: mild. Vision changes: no changes. Arm/leg numbness: none. Limb coordination: none. Memory changes: yes per - son reported this. Syncope: none. Disorientation: none. Seizures: none. Hearing changes: No.- Son states pts hearing does seem to be worse and discussed with Dr Mckeon last week, encouraged to discusse again SIGNED by: Ofelia Bean RN [facility] 02-25-2025 History of Present illness Narrative RESHMA EVANS [id number] : 1940 02/25/2025 [facility] Department of Radiation Oncology RADIATION ONCOLOGY - COMPLETION NOTE DATE OF SIMULATION: 01/02/25 DATES OF TREATMENT: 01/16/25 - 02/25/25 UNIT: [facility] AREA TREATED: Left skull base DISEASE: 1. 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 2. 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 ELAPSED TIME: 40 days. TOLERANCE/ RESPONSE: She noted mildly decreased hearing in both ears. She will talk to her PCP about hearing test. REMARKS: She tolerated radiation treatment well. Four week follow-up with me. Staff Physician LINDA MCKEON M.D. / :14 PM Electronically Signed cc: Zoë Kaplan NP [address] [place] [address] Neym[address] Jasmeet [address] [facility] [place] [address] documented in this encounter [facility] 02-25-2025 Note HNO ID: [id number] Author: LINDA MCKEON MD Service: Radiation Oncology Author Type: Physician Type: Progress Notes Filed: 03/04/2025 14:14 Note Text: RESHMA EVANS [id number] : 1940 02/25/2025 [facility] Department of Radiation Oncology RADIATION ONCOLOGY - COMPLETION NOTE DATE OF SIMULATION: 01/02/25 DATES OF TREATMENT: 01/16/25 - 02/25/25 UNIT: [facility] AREA TREATED: Left skull base DISEASE: 1. 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 2. 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 ELAPSED TIME: 40 days. TOLERANCE/ RESPONSE: She noted mildly decreased hearing in both ears. She will talk to her PCP about hearing test. REMARKS: She tolerated radiation treatment well. Four week follow-up with me. Staff Physician LINDA MCKEON M.D. / :14 PM Electronically Signed cc: Zoë Kaplan NP [address] [place] [address] Neym[address] Jeronimo [address] [facility] [place] [address] [facility] 02-25-2025 Note Education (RADTWS) RESHMA EVANS ([id number]) 1940 F Date Time Provider Department 02/25/25 LINDA MCKEON Reason for Visit: Patient Education [91] During your visit today, we recorded the following information about you: Allergies As of Date: 02/25/2025 (No Known Allergies) Date Reviewed: 02/19/2025 Reviewed by: Theodora Gaona, ZOHREH - Fully Assessed Prescriptions as of 02/25/2025 - solifenacin (VESICARE) 10 mg tablet Take 5 mg by mouth once daily. - primidone (MYSOLINE) 50 mg tablet Take 2 tablets by mouth daily at bedtime for 7 days. Take until the script from [facility] comes in - propranolol (INDERAL) 10 mg tablet Take 1 tablet by mouth two times a day for 30 days, THEN 0.5 tablets two times a day. Then Stop.. - primidone (MYSOLINE) 50 mg tablet Take 2 tablets by mouth daily at bedtime. - levETIRAcetam (KEPPRA) 750 mg tablet Take 2 tablets by mouth two times a day. - iv contrast (will be provided with radiology test) MRI Brain Inject, intravenously, once for 1 dose.No IV access, insert saline lock prior to beginning of sedation, infusion, injection of imaging exam.Discontinue saline lock post exam. If Pt. has a central line or IVAD, may access for administration according to line specific nursing protocol.Once exam is complete flush line and de-access according to line specific nursing protocol in the MR contrast administration guidelines link - iv contrast (will be provided with radiology test) MRI Brain Localization Inject, intravenously, once for 1 dose.No IV access, insert saline lock prior to beginning of sedation, infusion, injection of imaging exam.Discontinue saline lock post exam. If Pt. has a central line or IVAD, may access for administration according to line specific nursing protocol.Once exam is complete flush line and de-access according to line specific nursing protocol in the MR contrast administration guidelines link - rosuvastatin (CRESTOR) 10 mg tablet Take 1 tablet by mouth once daily. - acetaminophen (TYLENOL) 500 mg tablet 2 tablets by ORAL/FEEDING TUBE route every 6 hours. - fluorometholone (FML LIQUID FILM) 0.1 % ophthalmic suspension Use 1 Drop in the left eye two times a day. - gabapentin (NEURONTIN) 100 mg capsule Take 100 mg by mouth two times a day. Encounter Status:Closed by OFELIA BEAN on 02/25/25 [facility] 02-19-2025 History of Present illness Narrative Radiation Therapy - Nursing Note (OTV) PATIENT NAME: Reshma Evans PATIENT February 19, 2025 [facility] FACILITY/LOCATION: [facility] NOTE TYPE: DIAMOND GRADER Subjective Data C/o hard time hearing Additional Data Do you want to see a Metal Tile Lather? No Status: Post-menopausal. Stress Scale: On a scale of 0 to 10, what number best describes how much distress you have experienced in the past week?(0 being no distress and 10 being extreme distress) 4 Social work notified: Pt denied need to see social work case manager at this time. Nursing Assessment Fatigue: moderate; causing difficulty performing some activities Appetite: excellent Nutritional Intake: Regular oral intake. Weight Gain/Loss: Not applicable Ambulatory weight history: Last 6 Encounter Wt Readings: Date: Wt: 01/21/2025 85.9 kg (189 lb 6 oz) 01/16/2025 77.6 kg (171 lb) 12/26/2024 84.8 kg (187 lb) 11/04/2024 83.2 kg (183 lb 6.8 oz) 08/01/2024 82.4 kg (181 lb 10.5 oz) 08/01/2024 82.4 kg (181 lb 10.5 oz) Nausea:None Vomiting: None Bowel Function: normal bowel movements Erythema/Hyperpigmentation:none Desquamation:none Rash:none Skin Care: Aquaphor Skin Sensation: Within Normal Limits Focused Assessment DIAMOND GRADER: Alopecia: no. Headache: none. Vision changes: mild. Arm/leg numbness: none. Limb coordination: none. Memory changes: none. Syncope: none. Disorientation: none. Seizures: none. Hearing changes: Yes both ears, noticed is about last week. Vision changes- left eye moderately blurred SIGNED by: Theodora Gaona RN Radiation Oncology - On Treatment Review (OTR) Note PATIENT NAME: Reshma Evans PATIENT DIAGNOSIS: 1. 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 2. 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 EXAM: KPS: 90 General Appearance: Alert and oriented. No acute distress. Radiation dermatitis: No IMAGING/LAB RESULTS: None Treatment chart checked: Yes Patient treatment site reviewed and verified:Yes CBCTs reviewed and current:Yes Medications started: None ASSESSMENT/PLAN: Clinically stable. Side effects within expected parameters. Regarding her hearing, I recommended hearing tests. She and her son will contact her PCP. Continue radiation treatment as planned. Linda Mckeon MD documented in this encounter [facility] 02-19-2025 Note HNO ID: [id number] Author: THEODORA GAONA RN Service: ? Author Type: Registered Nurse Type: Progress Notes Filed: 02/19/2025 11:13 Note Text: Radiation Therapy - Nursing Note (OTV) PATIENT NAME: Reshma Evans PATIENT February 19, 2025 [facility] FACILITY/LOCATION: [place] NURSING NOTE TYPE: DIAMOND GRADER Subjective Data C/o hard time hearing Additional Data Do you want to see a Metal Tile Lather? No Status: Post-menopausal. Stress Scale: On a scale of 0 to 10, what number best describes how much distress you have experienced in the past week?(0 being no distress and 10 being extreme distress) 4 Social work notified: Pt denied need to see social work case manager at this time. Nursing Assessment Fatigue: moderate; causing difficulty performing some activities Appetite: excellent Nutritional Intake: Regular oral intake. Weight Gain/Loss: Not applicable Ambulatory weight history: Last 6 Encounter Wt Readings: Date: Wt: 01/21/2025 85.9 kg (189 lb 6 oz) 01/16/2025 77.6 kg (171 lb) 12/26/2024 84.8 kg (187 lb) 11/04/2024 83.2 kg (183 lb 6.8 oz) 08/01/2024 82.4 kg (181 lb 10.5 oz) 08/01/2024 82.4 kg (181 lb 10.5 oz) Nausea:None Vomiting: None Bowel Function: normal bowel movements Erythema/Hyperpigmentation:none Desquamation:none Rash:none Skin Care: Aquaphor Skin Sensation: Within Normal Limits Focused Assessment DIAMOND GRADER: Alopecia: no. Headache: none. Vision changes: mild. Arm/leg numbness: none. Limb coordination: none. Memory changes: none. Syncope: none. Disorientation: none. Seizures: none. Hearing changes: Yes both ears, noticed is about last week. Vision changes- left eye moderately blurred SIGNED by: Theodora Gaona RN [facility] 02-19-2025 Note HNO ID: [id number] Author: LINDA MCKEON MD Service: ? Author Type: Physician Type: Progress Notes Filed: 02/19/2025 11:13 Note Text: Radiation Oncology - On Treatment Review (OTR) Note PATIENT NAME: Reshma Evans PATIENT DIAGNOSIS: 1. 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 2. 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 EXAM: KPS: 90 General Appearance: Alert and oriented. No acute distress. Radiation dermatitis: No IMAGING/LAB RESULTS: None Treatment chart checked: Yes Patient treatment site reviewed and verified:Yes CBCTs reviewed and current:Yes Medications started: None ASSESSMENT/PLAN: Clinically stable. Side effects within expected parameters. Regarding her hearing, I recommended hearing tests. She and her son will contact her PCP. Continue radiation treatment as planned. Linda Mckeon MD [facility] 02-11-2025 Note HNO ID: [id number] Author: LINDA MCKEON MD Service: ? Author Type: Physician Type: Progress Notes Filed: 02/11/2025 11:12 Note Text: Radiation Oncology - On Treatment Review (OTR) Note PATIENT NAME: Reshma Evans PATIENT DIAGNOSIS: 1. 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 2. 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 EXAM: KPS: 90 General Appearance: Alert and oriented. No acute distress. Radiation dermatitis: No IMAGING/LAB RESULTS: None Treatment chart checked: Yes Patient treatment site reviewed and verified:Yes CBCTs reviewed and current:Yes Medications started: None ASSESSMENT/PLAN: Clinically stable. Side effects within expected parameters. Continue radiation treatment as planned. Linda Mckeon MD [facility] 02-11-2025 Note HNO ID: [id number] Author: OFELIA BEAN RN Service: ? Author Type: Registered Nurse Type: Progress Notes Filed: 02/11/2025 11:12 Note Text: Radiation Therapy - Nursing Note (OTV) PATIENT NAME: Reshma Evans PATIENT February 11, 2025 [facility] FACILITY/LOCATION: [place] NURSING NOTE TYPE: DIAMOND GRADER Subjective Data occasional headache at night takes one tylenol that help Additional Data Do you want to see a Metal Tile Lather? No Status: Post-menopausal. Stress Scale: On a scale of 0 to 10, what number best describes how much distress you have experienced in the past week?(0 being no distress and 10 being extreme distress) 4 Social work notified: Pt denied need to see social work case manager at this time. Nursing Assessment Fatigue: increased fatigue over baseline but not altering normal activities Appetite: good Nutritional Intake: Regular oral intake. Weight Gain/Loss: Not applicable Ambulatory weight history: Last 6 Encounter Wt Readings: Date: Wt: 01/21/2025 85.9 kg (189 lb 6 oz) 01/16/2025 77.6 kg (171 lb) 12/26/2024 84.8 kg (187 lb) 11/04/2024 83.2 kg (183 lb 6.8 oz) 08/01/2024 82.4 kg (181 lb 10.5 oz) 08/01/2024 82.4 kg (181 lb 10.5 oz) Nausea:None Vomiting: None Bowel Function: normal bowel movements Erythema/Hyperpigmentation:none Desquamation:none Rash:none Skin Care: Aquaphor Skin Sensation: Within Normal Limits Focused Assessment DIAMOND GRADER: Alopecia: no. Headache: mild. Vision changes: none. Arm/leg numbness: none. Limb coordination: none. Memory changes: none. Syncope: none. Disorientation: none. Seizures: none. Hearing changes: No. No new DIAMOND GRADER issues SIGNED by: Ofelia Bean RN [facility] 02-04-2025 Note HNO ID: [id number] Author: LINDA MCKEON MD Service: ? Author Type: Physician Type: Progress Notes Filed: 02/04/2025 11:02 Note Text: Radiation Oncology - On Treatment Review (OTR) Note PATIENT NAME: Reshma Evans PATIENT DIAGNOSIS: 1. 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 2. 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 EXAM: KPS: 90 General Appearance: Alert and oriented. No acute distress. Radiation dermatitis: No IMAGING/LAB RESULTS: None Treatment chart checked: Yes Patient treatment site reviewed and verified:Yes CBCTs reviewed and current:Yes Medications started: None ASSESSMENT/PLAN: Clinically stable. No significant treatment-related side effects. Continue radiation treatment as planned. Linda Mckeon MD [facility] 02-04-2025 History of Present illness Narrative Radiation Oncology - On Treatment Review (OTR) Note PATIENT NAME: Reshma Evans PATIENT DIAGNOSIS: 1. 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 2. 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 EXAM: KPS: 90 General Appearance: Alert and oriented. No acute distress. Radiation dermatitis: No IMAGING/LAB RESULTS: None Treatment chart checked: Yes Patient treatment site reviewed and verified:Yes CBCTs reviewed and current:Yes Medications started: None ASSESSMENT/PLAN: Clinically stable. No significant treatment-related side effects. Continue radiation treatment as planned. Linda Mckeon MD Radiation Therapy - Nursing Note (OTV) PATIENT NAME: Reshma Evans PATIENT February 04, 2025 [facility] FACILITY/LOCATION: [facility] NURSING NOTE TYPE: DIAMOND GRADER Subjective Data I'm having some dizziness when I lay down just for a few seconds. Additional Data Do you want to see a Metal Tile Lather? No Status: Post-menopausal. Stress Scale: On a scale of 0 to 10, what number best describes how much distress you have experienced in the past week?(0 being no distress and 10 being extreme distress) 2 Social work notified: Pt denied need to see social work case manager at this time. Nursing Assessment Fatigue: none Appetite: good Nutritional Intake: Regular oral intake. Weight Gain/Loss: Not applicable Ambulatory weight history: Last 6 Encounter Wt Readings: Date: Wt: 01/21/2025 85.9 kg (189 lb 6 oz) 01/16/2025 77.6 kg (171 lb) 12/26/2024 84.8 kg (187 lb) 11/04/2024 83.2 kg (183 lb 6.8 oz) 08/01/2024 82.4 kg (181 lb 10.5 oz) 08/01/2024 82.4 kg (181 lb 10.5 oz) Nausea:None Vomiting: None Bowel Function: normal bowel movements Erythema/Hyperpigmentation:none Desquamation:none Rash:none Skin Care: Aquaphor Skin Sensation: Within Normal Limits Focused Assessment DIAMOND GRADER: Alopecia: no. Headache: none. Vision changes: none. Arm/leg numbness: none. Limb coordination: none. Memory changes: none. Syncope: none. Disorientation: none. Seizures: none. Hearing changes: No. and c/o dizziness in the last couple weeks when laying down during radiation for only a quick second SIGNED by: Theodora Gaona RN documented in this encounter [facility] 02-04-2025 Note HNO ID: [id number] Author: THEODORA GAONA RN Service: ? Author Type: Registered Nurse Type: Progress Notes Filed: 02/04/2025 11:02 Note Text: Radiation Therapy - Nursing Note (OTV) PATIENT NAME: Reshma Evans PATIENT February 04, 2025 [facility] FACILITY/LOCATION: [facility] NURSING NOTE TYPE: DIAMOND GRADER Subjective Data I'm having some dizziness when I lay down just for a few seconds. Additional Data Do you want to see a Metal Tile Lather? No Status: Post-menopausal. Stress Scale: On a scale of 0 to 10, what number best describes how much distress you have experienced in the past week?(0 being no distress and 10 being extreme distress) 2 Social work notified: Pt denied need to see social work case manager at this time. Nursing Assessment Fatigue: none Appetite: good Nutritional Intake: Regular oral intake. Weight Gain/Loss: Not applicable Ambulatory weight history: Last 6 Encounter Wt Readings: Date: Wt: 01/21/2025 85.9 kg (189 lb 6 oz) 01/16/2025 77.6 kg (171 lb) 12/26/2024 84.8 kg (187 lb) 11/04/2024 83.2 kg (183 lb 6.8 oz) 08/01/2024 82.4 kg (181 lb 10.5 oz) 08/01/2024 82.4 kg (181 lb 10.5 oz) Nausea:None Vomiting: None Bowel Function: normal bowel movements Erythema/Hyperpigmentation:none Desquamation:none Rash:none Skin Care: Aquaphor Skin Sensation: Within Normal Limits Focused Assessment DIAMOND GRADER: Alopecia: no. Headache: none. Vision changes: none. Arm/leg numbness: none. Limb coordination: none. Memory changes: none. Syncope: none. Disorientation: none. Seizures: none. Hearing changes: No. and c/o dizziness in the last couple weeks when laying down during radiation for only a quick second SIGNED by: Theodora Gaona RN [facility] 01-28-2025 Note HNO ID: [id number] Author: LINDA MCKEON MD Service: ? Author Type: Physician Type: Progress Notes Filed: 01/28/2025 11:07 Note Text: Radiation Oncology - On Treatment Review (OTR) Note PATIENT NAME: Reshma Evans PATIENT DIAGNOSIS: 1. 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 2. 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 She continues to have hyper-tearing of the left eye since her surgery last year without significant changes. She is scheduled to see her housekeeping associate tomorrow. EXAM: KPS: 90 General Appearance: Alert and oriented. No acute distress. Radiation dermatitis: No IMAGING/LAB RESULTS: None Treatment chart checked: Yes Patient treatment site reviewed and verified:Yes CBCTs reviewed and current:Yes Medications started: None ASSESSMENT/PLAN: Clinically stable. No significant treatment-related side effects. Continue radiation treatment as planned. Linda Mckeon MD [facility] 01-28-2025 Note HNO ID: [id number] Author: OFELIA BEAN RN Service: ? Author Type: Registered Nurse Type: Progress Notes Filed: 01/28/2025 11:07 Note Text: Radiation Therapy - Nursing Note (OTV) PATIENT NAME: Reshma Evans PATIENT January 28, 2025 [facility] FACILITY/LOCATION: [place] NURSING NOTE TYPE: DIAMOND GRADER Subjective Data no complaints Additional Data Do you want to see a Metal Tile Lather? No Status: Post-menopausal. Stress Scale: On a scale of 0 to 10, what number best describes how much distress you have experienced in the past week?(0 being no distress and 10 being extreme distress) 5 Social work notified: Pt denied need to see social work case manager at this time. Nursing Assessment Fatigue: none Appetite: good Nutritional Intake: Regular oral intake. Weight Gain/Loss: Not applicable Ambulatory weight history: Last 6 Encounter Wt Readings: Date: Wt: 01/21/2025 85.9 kg (189 lb 6 oz) 01/16/2025 77.6 kg (171 lb) 12/26/2024 84.8 kg (187 lb) 11/04/2024 83.2 kg (183 lb 6.8 oz) 08/01/2024 82.4 kg (181 lb 10.5 oz) 08/01/2024 82.4 kg (181 lb 10.5 oz) Nausea:None Vomiting: None Bowel Function: normal bowel movements Erythema/Hyperpigmentation:none Desquamation:none Rash:none Skin Care: Aquaphor Skin Sensation: Within Normal Limits Focused Assessment DIAMOND GRADER: Alopecia: no. Headache: none. Vision changes: see Dr Matson for check up. Arm/leg numbness: none. Limb coordination: none. Memory changes: mild. Syncope: none. Disorientation: none. Seizures: none. Hearing changes: No. SIGNED by: Ofelia Bean RN [facility] 01-28-2025 History of Present illness Narrative Radiation Oncology - On Treatment Review (OTR) Note PATIENT NAME: Reshma Evans PATIENT DIAGNOSIS: 1. 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 2. 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 She continues to have hyper-tearing of the left eye since her surgery last year without significant changes. She is scheduled to see her housekeeping associate tomorrow. EXAM: KPS: 90 General Appearance: Alert and oriented. No acute distress. Radiation dermatitis: No IMAGING/LAB RESULTS: None Treatment chart checked: Yes Patient treatment site reviewed and verified:Yes CBCTs reviewed and current:Yes Medications started: None ASSESSMENT/PLAN: Clinically stable. No significant treatment-related side effects. Continue radiation treatment as planned. Linda Mckeon MD Radiation Therapy - Nursing Note (OTV) PATIENT NAME: Reshma Evans PATIENT January 28, 2025 [facility] FACILITY/LOCATION: [place] NURSING NOTE TYPE: DIAMOND GRADER Subjective Data no complaints Additional Data Do you want to see a Metal Tile Lather? No Status: Post-menopausal. Stress Scale: On a scale of 0 to 10, what number best describes how much distress you have experienced in the past week?(0 being no distress and 10 being extreme distress) 5 Social work notified: Pt denied need to see social work case manager at this time. Nursing Assessment Fatigue: none Appetite: good Nutritional Intake: Regular oral intake. Weight Gain/Loss: Not applicable Ambulatory weight history: Last 6 Encounter Wt Readings: Date: Wt: 01/21/2025 85.9 kg (189 lb 6 oz) 01/16/2025 77.6 kg (171 lb) 12/26/2024 84.8 kg (187 lb) 11/04/2024 83.2 kg (183 lb 6.8 oz) 08/01/2024 82.4 kg (181 lb 10.5 oz) 08/01/2024 82.4 kg (181 lb 10.5 oz) Nausea:None Vomiting: None Bowel Function: normal bowel movements Erythema/Hyperpigmentation:none Desquamation:none Rash:none Skin Care: Aquaphor Skin Sensation: Within Normal Limits Focused Assessment DIAMOND GRADER: Alopecia: no. Headache: none. Vision changes: see Dr Matson for check up. Arm/leg numbness: none. Limb coordination: none. Memory changes: mild. Syncope: none. Disorientation: none. Seizures: none. Hearing changes: No. SIGNED by: Ofelia Bean RN documented in this encounter [facility] 01-22-2025 History of Present illness Narrative Radiation Therapy - Nursing Note (OTV) PATIENT NAME: Reshma Evans PATIENT January 22, 2025 [facility] FACILITY/LOCATION: [facility] NOTE TYPE: HEAD AND NECK Subjective Data My left eye is just irritating because it keeps watering. Additional Data Do you want to see a Metal Tile Lather? No Status: Post-menopausal. Stress Scale: On a scale of 0 to 10, what number best describes how much distress you have experienced in the past week?(0 being no distress and 10 being extreme distress) 5 Social work notified: Pt denied need to see social work case manager at this time. Nursing Assessment Fatigue: increased fatigue over baseline but not altering normal activities Appetite: good Nutritional Intake: Regular oral intake. Weight Gain/Loss: Not applicable Ambulatory weight history: Last 6 Encounter Wt Readings: Date: Wt: 01/21/2025 85.9 kg (189 lb 6 oz) 01/16/2025 77.6 kg (171 lb) 12/26/2024 84.8 kg (187 lb) 11/04/2024 83.2 kg (183 lb 6.8 oz) 08/01/2024 82.4 kg (181 lb 10.5 oz) 08/01/2024 82.4 kg (181 lb 10.5 oz) Nausea:None Vomiting: None Bowel Function: normal bowel movements Erythema/Hyperpigmentation:none Desquamation:none Rash:none Skin Care: Aquaphor Skin Sensation: Within Normal Limits Focused Assessment HEAD AND NECK: Mouth sores: no. Other: not utilizing anything (per day): 0 and Salivary Changes: increased dryness SIGNED by: Theodora Gaona RN Radiation Oncology - On Treatment Review (OTR) Note PATIENT NAME: Reshma Evans PATIENT DIAGNOSIS: 1. 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 2. 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 She continues to have hyper-tearing of the left eye since her surgery last year without significant changes. She sees an housekeeping associate. EXAM: KPS: 90 General Appearance: Alert and oriented. No acute distress. Radiation dermatitis: No IMAGING/LAB RESULTS: None Treatment chart checked: Yes Patient treatment site reviewed and verified:Yes CBCTs reviewed and current:Yes Medications started: None ASSESSMENT/PLAN: Clinically stable. No significant treatment-related side effects Continue radiation treatment as planned. Linda Mckeon MD documented in this encounter [facility] 01-22-2025 Note HNO ID: [id number] Author: THEODORA GAONA RN Service: ? Author Type: Registered Nurse Type: Progress Notes Filed: 01/22/2025 10:59 Note Text: Radiation Therapy - Nursing Note (OTV) PATIENT NAME: Reshma Evans PATIENT January 22, 2025 [facility] FACILITY/LOCATION: [place] NURSING NOTE TYPE: HEAD AND NECK Subjective Data My left eye is just irritating because it keeps watering. Additional Data Do you want to see a Metal Tile Lather? No Status: Post-menopausal. Stress Scale: On a scale of 0 to 10, what number best describes how much distress you have experienced in the past week?(0 being no distress and 10 being extreme distress) 5 Social work notified: Pt denied need to see social work case manager at this time. Nursing Assessment Fatigue: increased fatigue over baseline but not altering normal activities Appetite: good Nutritional Intake: Regular oral intake. Weight Gain/Loss: Not applicable Ambulatory weight history: Last 6 Encounter Wt Readings: Date: Wt: 01/21/2025 85.9 kg (189 lb 6 oz) 01/16/2025 77.6 kg (171 lb) 12/26/2024 84.8 kg (187 lb) 11/04/2024 83.2 kg (183 lb 6.8 oz) 08/01/2024 82.4 kg (181 lb 10.5 oz) 08/01/2024 82.4 kg (181 lb 10.5 oz) Nausea:None Vomiting: None Bowel Function: normal bowel movements Erythema/Hyperpigmentation:none Desquamation:none Rash:none Skin Care: Aquaphor Skin Sensation: Within Normal Limits Focused Assessment HEAD AND NECK: Mouth sores: no. Other: not utilizing anything (per day): 0 and Salivary Changes: increased dryness SIGNED by: Theodora Gaona RN [facility] 01-22-2025 Note HNO ID: [id number] Author: LINDA MCKEON MD Service: ? Author Type: Physician Type: Progress Notes Filed: 01/22/2025 10:59 Note Text: Radiation Oncology - On Treatment Review (OTR) Note PATIENT NAME: Reshma Evans PATIENT DIAGNOSIS: 1. 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 2. 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 She continues to have hyper-tearing of the left eye since her surgery last year without significant changes. She sees an housekeeping associate. EXAM: KPS: 90 General Appearance: Alert and oriented. No acute distress. Radiation dermatitis: No IMAGING/LAB RESULTS: None Treatment chart checked: Yes Patient treatment site reviewed and verified:Yes CBCTs reviewed and current:Yes Medications started: None ASSESSMENT/PLAN: Clinically stable. No significant treatment-related side effects Continue radiation treatment as planned. Linda Mckeon MD [facility] 01-21-2025 History of Present illness Narrative NEUROSURGERY POST-OP NOTE Neymar Jeronimo MD Date of visit: January 21, 2025 Patient Name: Ms.Miriam Ronit Evans Date of : 1940 Current Age: [age] year old Sex: female MRN/E# [id number] Last Office Visit: 12/18/2024 CLINICAL SUMMARY: * 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 Barcenas * GKRS to right anterior clinoid meningioma to 14 Gy on 12/06/2024 Dr. Mario Cruz - [facility] [phone] Dr. Matson [facility] [place] Dr. Cline - post op seizure, on Keppra 1500 mg bid SURGERY: GKRS to right anterior clinoid meningioma to 14 Gy on 12/06/2024 Current AED Dose: keppra 1500mg bid PMH including HTN, HLD, KIMBERLY, DM. Patient has a past surgical history of left frontal craniotomy for meningioma resection, exenteration of frontal sinus 09/24/[address] Lee Mckeon at [facility]. 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 She was seen at [facility] on 02/13/2024 after a fall after stepping off the curb. She struck the left side of her face. CT brain demonstrated a small left frontal SDH. Repeat imaging was stable. She was recommended to keep her outpatient follow up appointment. She was seen on 02/19/2024 where she had been doing well since fall. She initially had MRIs ordered from Dr. Cruz with opthalmology due to the left eye exophthalmus. She noted that this had started about 2 months prior. She stated that when she looked out of the left eye that vision was a bit fuzzy. 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 Left sphenoid wing meningioma with most of its mass located away from the optic nerve. Small right anterior clinoid meningioma noted that was new from MRI in 2013. Since optic nerve was not well visualized, she was recommended to have MRI pituitary to better assess. Her CT brain showed improvement in the left lateral subdural collection, more chronic in appearance. She was seen on 04/04/2024 where she followed up with MRI imaging - vision was the same, fuzziness in the left eye. She had intermittent headaches, resolved with tylenol. Her MRI brain showed on FIESTA sequences there appears to be significant compression of the optic nerve within the optic canal secondary to bone expansion of the intraosseous component of the tumor. She underwent Left pterional craniotomy for resection of sphenoid wing meningioma, Decompression of the optic canal and lateral orbit on 04/26/2024. She had her 2 week post operative visit on 05/20/2024 where she had been doing well overall. She was discharged from [facility] today. Her incision was healing well and sutures were removed at the rehab facility. She denied any pain but sometimes had some pressure on the left side of her head since she sleeps on that side. She noticed her vision out of the left eye feels a little more clear with up close things but far away was still fuzzy. She had an upcoming appointment with Dr Cline 07/04/2024. Her optic canal was well compressed. Pathology showed Grade 1 meningioma with Ki67 of 5 %. She was recommended to follow up at 3 months post operative with MRI. She was recommended to see Dr. Barcenas for incidental rt ICA aneurysm. She was last seen on 08/01/2024 where she had been doing well overall. She felt fatigued and sometimes felt like she doesn't want to do things that she used to do. She did follow up with Dr Cline and was still on Keppra. She still had the left side head pressure some days. She felt like her left eye will sometimes feel swollen since she sleeps on her left. MRI brain showed a stable right ant clinoid meningioma with postoperative changes on the left with no evidence of nodular tumor recurrence, extensive dural thickening, postoperative and tumor involvement. Small post operative epidural fluid collection above the orbit. No significant mass effect. She was recommended to follow up in 3 months with MRI imaging. She would consider GKRS to right anterior clinoid meningioma. She was last seen on 11/04/2024 where she felt like the head pressure on her left was better than prior. She had been compliant with keppra, but doesn't like how it makes her feel. They will discuss this with Dr Cline, has follow up with him scheduled in January. She also felt like her legs feel weak since surgery. Just does not feel as strong as they were prior to surgery. She felt like her vision is about the same. Has been using readers. She had an appointment with Dr. Matson with ophthalmology @ [facility] on Monday11/11/2024. MRI brain showed complete resection of the intracranial component of meningioma with no evidence of recurrence. There has been significant progression of the howard osseous component of tumor however along the frontal and sphenoid bone. Slight increase of the right anterior clinoid tumor that was separate from the left sided tumor (and this is new from 2013). Given significant progression on the left and the extent of the tumor involvement, recommend radiation to the involved area. Since this was diffuse disease, conventional radiation treatment is a better option. We also discussed that the right sided small meningioma that was new since 2013 and slight increase when compared to 04/2024 scan was separate from the left sided tumor and was well localized and would be a good candidate for receiving Gamma Knife radiosurgery to the lesion to prevent further growth. She underwent GKRS to right anterior clinoid meningioma to 14 Gy on 12/06/2024 She met with Radiation Oncology Dr. Mckeon on 12/26/2024. She is currently undergoing radiation treatments. Patient is having their 6 week post operative visit. She reports that she did well overall post gamma knife. She started radiation to left skull base on . She is currently undergoing radiation with Dr. Mckeon and has had decreased energy since starting radiation. Otherwise does not have new concerns. She stated that Dr Cline increased her primidone. She is here for image review, evaluation and plan of care. Incision: mask used no incision PAIN EVALUATION No data found in the last 1 encounters. Current Outpatient Medications Medication Sig Dispense Refill propranolol (INDERAL) 10 mg tablet Take 1 tablet by mouth two times a day for 30 days, THEN 0.5 tablets two times a day. Then Stop.. 90 tablet 0 primidone (MYSOLINE) 50 mg tablet Take 2 tablets by mouth daily at bedtime. 180 tablet 1 levETIRAcetam (KEPPRA) 750 mg tablet Take 2 tablets by mouth two times a day. 360 tablet 3 rosuvastatin (CRESTOR) 10 mg tablet Take 1 tablet by mouth once daily. acetaminophen (TYLENOL) 500 mg tablet 2 tablets by ORAL/FEEDING TUBE route every 6 hours. fluorometholone (FML LIQUID FILM) 0.1 % ophthalmic suspension Use 1 Drop in the left eye two times a day. gabapentin (NEURONTIN) 100 mg capsule Take 100 mg by mouth two times a day. iv contrast (will be provided with radiology test) MRI Brain Inject, intravenously, once for 1 dose.No IV access, insert saline lock prior to beginning of sedation, infusion, injection of imaging exam.Discontinue saline lock post exam. If Pt. has a central line or IVAD, may access for administration according to line specific nursing protocol.Once exam is complete flush line and de-access according to line specific nursing protocol in the MR contrast administration guidelines link (Patient not taking: Reported on 01/21/2025) 1 each 0 iv contrast (will be provided with radiology test) MRI Brain Localization Inject, intravenously, once for 1 dose.No IV access, insert saline lock prior to beginning of sedation, infusion, injection of imaging exam.Discontinue saline lock post exam. If Pt. has a central line or IVAD, may access for administration according to line specific nursing protocol.Once exam is complete flush line and de-access according to line specific nursing protocol in the MR contrast administration guidelines link (Patient not taking: Reported on 01/21/2025) 1 each 0 No current facility-administered medications for this visit. OBJECTIVE: BP 119/79 Pulse 59 Resp 16 Wt 189 lb 6 oz (85.9kg) SpO2 97% A&Ox3, speech - slow and dysarthric but fluent CN II-XII grossly intact. With left eye proptosis and erythema No pronator drift Motor: Strength grossly intact in UEs and LEs Sensorium: grossly intact. WOUND ASSESSMENT: mask used, no incision DATA REVIEW: IMAGING STUDIES: MRI brain w/wo obtained on 01/17/2025 demonstrates: IMPRESSION: Stable appearance of the brain. Stable meningioma centered about the LEFT greater sphenoid and stable RIGHT anterior clinoid process meningioma as above. Dictated by : ELAINA GARZON MD Images independently reviewed The following portions of the patient's history were reviewed, confirmed, updated as necessary: allergies, current medications, past family history, past medical history, past social history, past surgical history, problem list, HPI and ROS obtained by others. The clinical and radiographic findings as well as the risks, benefits, and alternatives of treatment have been reviewed in detail with the patient. ASSESSMENT/PLAN 1. Intracranial meningioma (HCC) (Primary) Reviewed MRI brain -stable appearance of right clinoid meningioma and an extensive left-sided meningioma centered at the left sphenoid wing - Started radiation treatments for left convexity skull base intraosseous meningioma. Extensive involvement of sphenoid bone surrounding the orbit that is contributing to her ongoing proptosis -Stable to possibly slightly improved right sided anterior clinoid meningioma, status post gamma knife - Will continue to follow with repeat MRI brain in 4 months, which will make it 3 months after completion of her radiation treatments - Follow-up in office to review results - MRI BRAIN WO/W IVCON; Future 2. Essential tremor Has seen Dr. Cline recently who increased her primidone medication. Unfortunately, the prescription is coming via mail. They have requested 2 weeks worth supply of primidone to enable her to continue this medication. Prescription sent - primidone (MYSOLINE) 50 mg tablet; Take 2 tablets by mouth daily at bedtime for 7 days. Take until the script from express script comes in Dispense: 14 tablet; Refill: 0 Encouraged patient to contact our office should there be any further questions, concerns, or change in symptoms. Patient expressed understanding and is in agreement with plan. Some elements may have been copied from a previous note and have been updated/reviewed where appropriate. All portions reflect current medical decision making from today. Neymar Jeronimo MD documented in this encounter [facility] 01-21-2025 Note HNO ID: [id number] Author: NEYMAR JERONIMO MD Service: ? Author Type: Physician Type: Progress Notes Filed: 01/21/2025 13:02 Note Text: NEUROSURGERY POST-OP NOTE Neymar Jeronimo MD Date of visit: January 21, 2025 Patient Name: Ms.Miriam Ronit Evans Date of : 1940 Current Age: [age] year old Sex: female MRN/E# [id number] Last Office Visit: 12/18/2024 CLINICAL SUMMARY: * 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 Barcenas * GKRS to right anterior clinoid meningioma to 14 Gy on 12/06/2024 Dr. Mario Cruz - [facility] [phone] Dr[facility] [place] Dr. Cline - post op seizure, on Keppra 1500 mg bid SURGERY: GKRS to right anterior clinoid meningioma to 14 Gy on 12/06/2024 Current AED Dose: keppra 1500mg bid PMH including HTN, HLD, KIMBERLY, DM. Patient has a past surgical history of left frontal craniotomy for meningioma resection, exenteration of frontal sinus 09/24/[address] Lee Mckeon at [facility]. 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 She was seen at [facility] on 02/13/2024 after a fall after stepping off the curb. She struck the left side of her face. CT brain demonstrated a small left frontal SDH. Repeat imaging was stable. She was recommended to keep her outpatient follow up appointment. She was seen on 02/19/2024 where she had been doing well since fall. She initially had MRIs ordered from Dr. Cruz with opthalmology due to the left eye exophthalmus. She noted that this had started about 2 months prior. She stated that when she looked out of the left eye that vision was a bit fuzzy. 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 Left sphenoid wing meningioma with most of its mass located away from the optic nerve. Small right anterior clinoid meningioma noted that was new from MRI in 2013. Since optic nerve was not well visualized, she was recommended to have MRI pituitary to better assess. Her CT brain showed improvement in the left lateral subdural collection, more chronic in appearance. She was seen on 04/04/2024 where she followed up with MRI imaging - vision was the same, fuzziness in the left eye. She had intermittent headaches, resolved with tylenol. Her MRI brain showed on FIESTA sequences there appears to be significant compression of the optic nerve within the optic canal secondary to bone expansion of the intraosseous component of the tumor. She underwent Left pterional craniotomy for resection of sphenoid wing meningioma, Decompression of the optic canal and lateral orbit on 04/26/2024. She had her 2 week post operative visit on 05/20/2024 where she had been doing well overall. She was discharged from [facility] today. Her incision was healing well and sutures were removed at the rehab facility. She denied any pain but sometimes had some pressure on the left side of her head since she sleeps on that side. She noticed her vision out of the left eye feels a little more clear with up close things but far away was still fuzzy. She had an upcoming appointment with Dr Cline 07/04/2024. Her optic canal was well compressed. Pathology showed Grade 1 meningioma with Ki67 of 5 %. She was recommended to follow up at 3 months post operative with MRI. She was recommended to see Dr. Barcenas for incidental rt ICA aneurysm. She was last seen on 08/01/2024 where she had been doing well overall. She felt fatigued and sometimes felt like she doesn't want to do things that she used to do. She did follow up with Dr Cline and was still on Keppra. She still had the left side head pressure some days. She felt like her left eye will sometimes feel swollen since she sleeps on her left. MRI brain showed a stable right ant clinoid meningioma with postoperative changes on the left with no evidence of nodular tumor recurrence, extensive dural thickening, postoperative and tumor involvement. Small post operative epidural fluid collection above the orbit. No significant mass effect. She was recommended to follow up in 3 months with MRI imaging. She would consider GKRS to right anterior clinoid meningioma. She was last seen on 11/04/2024 where she felt like the head pressure on her left was better than prior. She had been comp (more content not included)... [facility] 01-16-2025 History of Present illness Narrative Radiology Service Progress Note DATE OF SERVICE: January 16, 2025 TIME: 2:55 PM PATIENT IDENTITY VERIFICATION COMPLETED USING TWO (2) STANDARD IDENTIFIERS: Name and Date of confirmed by patient verbally. FALL SCREENING: Has the patient had 2 falls in the last year or 1 fall with injury or currently using an Ambulatory Assistive Device (Walker, Cane, Wheelchair, Crutches, etc.)? No PATIENT GENDER DATA: Assigned female at . status: : No status: NO. PATIENT RELEVANT IMPLANT DATA REVIEWED: Yes PATIENT PRESENTS WITH AN IMPLANTABLE OR ATTACHED ASSISTED LIVING COORDINATOR: No ALLERGIES: Reviewed and unchanged CONTRAST ALLERGY: NO. EXAM: MRI - CONTRAST TYPE: GROUP II PERIPHERAL IV DATA: Ambulatory: A peripheral IV was started in the Left antecubital site with a Angio cath: 22 gauge. RADIOLOGY DEPARTMENT: MR; Exam(s) Completed: Head: Routine Brain. Aromatherapy Administered: No SIGNATURE: RT Manish(Ronit) PATIENT NAME: Reshma Evans DATE: January 16, 2025 TIME: 2:55 PM documented in this encounter [facility] 01-16-2025 Note HNO ID: [id number] Author: BREONNA SIDDIQI RT(Ronit) Service: ? Author Type: Technologist Type: Progress Notes Filed: 01/16/2025 14:55 Note Text: Radiology Service Progress Note DATE OF SERVICE: January 16, 2025 TIME: 2:55 PM PATIENT IDENTITY VERIFICATION COMPLETED USING TWO (2) STANDARD IDENTIFIERS: Name and Date of confirmed by patient verbally. FALL SCREENING: Has the patient had 2 falls in the last year or 1 fall with injury or currently using an Ambulatory Assistive Device (Walker, Cane, Wheelchair, Crutches, etc.)? No PATIENT GENDER DATA: Assigned female at . status: : No status: NO. PATIENT RELEVANT IMPLANT DATA REVIEWED: Yes PATIENT PRESENTS WITH AN IMPLANTABLE OR ATTACHED ASSISTED LIVING COORDINATOR: No ALLERGIES: Reviewed and unchanged CONTRAST ALLERGY: NO. EXAM: MRI - CONTRAST TYPE: GROUP II PERIPHERAL IV DATA: Ambulatory: A peripheral IV was started in the Left antecubital site with a Angio cath: 22 gauge. RADIOLOGY DEPARTMENT: MR; Exam(s) Completed: Head: Routine Brain. Aromatherapy Administered: No SIGNATURE: RT Manish(R) PATIENT NAME: Reshma Evans DATE: January 16, 2025 TIME: 2:55 PM [facility] 01-16-2025 Note HNO ID: [id number] Author: GERALD CLINE MD Service: ? Author Type: Physician Type: Progress Notes Filed: 01/16/2025 10:04 Note Text: [facility] Patient Name: Reshma Evans Date of : 1940 ESTABLISHED EPILEPSY CLINIC NOTE 01/16/2025 9:40 AM Reason for Visit: Follow Up Clinical Summary: Ms. Evans is a 84 year old right-handed female seen in [facility]. At today's visit, the patient is accompanied by: son Recording using Yelp software for draft documentation of the visit was discussed with the patient/authorized veterans service representative; all questions welcomed and answered. Patient/authorized veterans service representative agreed to proceed HISTORY OF PRESENT ILLNESS Handedness: right-handed Age of onset: 83 years Interval History 07/04/24 - last visit 12/06/24 - MRI BRAIN W WO - Similar residual left orbitofrontal meningioma with involvement concerning structures, as detailed. Additional small right-sided paraclinoid meningioma. 12/26/24 - oncology - 84 year old woman with 1. 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 2. 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 I recommend radiation treatment there. Reshma Evans is an 84-year-old female with a history of brain tumor and seizures, presenting for follow-up. Reshma was last seen on July 04. Since then, she has undergone several MRIs, the most recent on December 06, which revealed residual tumor on the left orbitofrontal region. She underwent a gamma knife procedure on December 06 and is scheduled to start radiation therapy today at the [facility] in [place]. She does not report any unusual symptoms or side effects from the increased Keppra dosage (750 mg, two tablets in the morning and two at night). She does not endorse waking up with blood in her mouth or loss of bladder control related to seizures. She is incontinent at night and wears pads. She recalls two instances of waking up to a messed up bed shortly after her surgery last year but has not experienced this recently. Reshma reports nocturnal urinary incontinence, requiring the use of diapers at night. She does not endorse any side effects from her medications. She is currently taking primidone 50 mg at night for tremors, which she reports has helped reduce the severity of her tremors. However, she notes that the tremors worsen when she is nervous. She does not report any side effects from the primidone. She is also taking propranolol 15 mg twice daily but does not feel it has been effective in managing her tremors. Total # of Current Anti-seizure Medications: 2 Side Effects to Current Anti-seizure Medications: none Seizure Frequency at First Visit: Longest Seizure-free Interval: Number of seizure types: 1 Hx of generalized tonic-clonic seizures: No Tongue bite: No Urine or Bowel Incontinence: No Triggers: meningioma Postictal Deficits: No Memory complaints: none Status Epilepticus or clusters: No Postictal Agitation: No Significant Injuries from Seizures: none Seizure-related driving accidents: No Driving: No Lives Alone: No ED Visits in Last 3 Months: No Hospitalizations in Last 3 Months: No Highest Level of Education: High school graduate (includes GED) CURRENT OUTPATIENT ANTISEIZURE MEDICATIONS (as of the start of the encounter) gabapentin (NEURONTIN) 100 mg capsule (Taking) Take 100 mg by mouth two times a day. primidone (MYSOLINE) 50 mg tablet Take 1 tablet by mouth daily at bedtime. levETIRAcetam (KEPPRA) 750 mg tablet Take 2 tablets by mouth two times a day. Prior Anti-seizure Therapies: Trial Adequacy: Max Daily Dose Achieved: Side Effects: Effectiveness: Comments: Gabapentin, other use Levetiracetam None Primidone, other use Comorbidities: Minor: Obesity, Obstructive Sleep Apnea, Hyperlipidemia/Hypercholesterolemi a, Hypertension, Diabetes Type 2, Brain Tumor Episode Description: SEIZURE TYPE 1: Subclinical seizure on BEM Onset: 04/2024 Aura: no Description: EEG Seizure, Regional, left frontotemporal No Clinical Signs Loss of awareness: Duration: Frequency: Last occurred: no April 28 2024 VITAL SIGNS: BP 128/80 (BP Site: Right Arm, BP Position: Sitting, BP Cuff Size: Regular Adult) Pulse 73 Resp 16 Wt 77.6 kg (171 lb) BMI 27.60 kg/m? IMPRESSION: Impression 04/30/2024 - 83-year-old woman presents for elective meningioma resection. She underwent left pterional craniotomy for resection of sphenoid wing meningioma and decompression of the optic canal and lateral orbit on 04/26. She has a history of prior left frontal resecti (more content not included)... [facility] 01-16-2025 History of Present illness Narrative [facility] Patient Name: Reshma Evans Date of : 1940 ESTABLISHED EPILEPSY CLINIC NOTE 01/16/2025 9:40 AM Reason for Visit: Follow Up Clinical Summary: Ms. Evans is a 84 year old right-handed female seen in [facility]. At today's visit, the patient is accompanied by: son Recording using Yelp software for draft documentation of the visit was discussed with the patient/authorized veterans service representative; all questions welcomed and answered. Patient/authorized veterans service representative agreed to proceed HISTORY OF PRESENT ILLNESS Handedness: right-handed Age of onset: 83 years Interval History 07/04/24 - last visit 12/06/24 - MRI BRAIN W WO - Similar residual left orbitofrontal meningioma with involvement concerning structures, as detailed. Additional small right-sided paraclinoid meningioma. 12/26/24 - oncology - 84 year old woman with 1. 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 2. 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 I recommend radiation treatment there. Reshma Evans is an 84-year-old female with a history of brain tumor and seizures, presenting for follow-up. Reshma was last seen on July 04. Since then, she has undergone several MRIs, the most recent on December 06, which revealed residual tumor on the left orbitofrontal region. She underwent a gamma knife procedure on December 06 and is scheduled to start radiation therapy today at the [facility] in [place]. She does not report any unusual symptoms or side effects from the increased Keppra dosage (750 mg, two tablets in the morning and two at night). She does not endorse waking up with blood in her mouth or loss of bladder control related to seizures. She is incontinent at night and wears pads. She recalls two instances of waking up to a messed up bed shortly after her surgery last year but has not experienced this recently. Reshma reports nocturnal urinary incontinence, requiring the use of diapers at night. She does not endorse any side effects from her medications. She is currently taking primidone 50 mg at night for tremors, which she reports has helped reduce the severity of her tremors. However, she notes that the tremors worsen when she is nervous. She does not report any side effects from the primidone. She is also taking propranolol 15 mg twice daily but does not feel it has been effective in managing her tremors. Total # of Current Anti-seizure Medications: 2 Side Effects to Current Anti-seizure Medications: none Seizure Frequency at First Visit: Longest Seizure-free Interval: Number of seizure types: 1 Hx of generalized tonic-clonic seizures: No Tongue bite: No Urine or Bowel Incontinence: No Triggers: meningioma Postictal Deficits: No Memory complaints: none Status Epilepticus or clusters: No Postictal Agitation: No Significant Injuries from Seizures: none Seizure-related driving accidents: No Driving: No Lives Alone: No ED Visits in Last 3 Months: No Hospitalizations in Last 3 Months: No Highest Level of Education: High school graduate (includes GED) CURRENT OUTPATIENT ANTISEIZURE MEDICATIONS (as of the start of the encounter) gabapentin (NEURONTIN) 100 mg capsule (Taking) Take 100 mg by mouth two times a day. primidone (MYSOLINE) 50 mg tablet Take 1 tablet by mouth daily at bedtime. levETIRAcetam (KEPPRA) 750 mg tablet Take 2 tablets by mouth two times a day. Prior Anti-seizure Therapies: Trial Adequacy: Max Daily Dose Achieved: Side Effects: Effectiveness: Comments: Gabapentin, other use Levetiracetam None Primidone, other use Comorbidities: Minor: Obesity, Obstructive Sleep Apnea, Hyperlipidemia/Hypercholesterolemi a, Hypertension, Diabetes Type 2, Brain Tumor Episode Description: SEIZURE TYPE 1: Subclinical seizure on BEM Onset: 04/2024 Aura: no Description: EEG Seizure, Regional, left frontotemporal No Clinical Signs Loss of awareness: Duration: Frequency: Last occurred: no April 28 2024 VITAL SIGNS: BP 128/80 (BP Site: Right Arm, BP Position: Sitting, BP Cuff Size: Regular Adult) Pulse 73 Resp 16 Wt 77.6 kg (171 lb) BMI 27.60 kg/m IMPRESSION: Impression 04/30/2024 - 83-year-old woman presents for elective meningioma resection. She underwent left pterional craniotomy for resection of sphenoid wing meningioma and decompression of the optic canal and lateral orbit on 04/26. She has a history of prior left frontal resection of meningioma and residual encephalomalacia. Recently she fell and diagnosed with small left frontal SDH. She had confusion postop. BEM recorded a subclinical seizure in left FT region. Keppra was started. No further seizures, last one 0104 on 04/28/2024. BEM negative for 48 hours. Recommendations: Continue Keppra 1500 mg BID Discontinue BEM since 48 hours negative Follow up with epilepsy in 4-8 weeks Please call or chat with any questions Interval Impression: 1. 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 Undergoing radiation therapy starting today at [facility]. - No new seizure activity reported; patient continues on Keppra (levetiracetam) 750 mg, two tablets in the morning and two tablets at night. No side effects reported from increased dose. - Educated patient on signs of nocturnal seizures, including blood in the mouth, tongue biting, and disordered bed sheets. - Will reassess the need for Keppra after completion of radiation therapy. 2. Essential tremor (G25.0) - Mild improvement in tremor with current primidone 50 mg, one tablet at night. - Increase primidone to 50 mg, two tablets at night to further control tremor. - Gradual tapering of propranolol from 15 mg BID to 10 mg BID for 30 days, then 5 mg BID for 30 days, with discontinuation by March 16. - Monitor for any worsening of tremor during propranolol taper; may adjust primidone dose if necessary. - Follow-up in 6 months. The patient's compliance with therapy has been: Excellent PLAN: 1. 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 Undergoing radiation therapy starting today at [facility] in [place]. - No new seizure activity reported; patient continues on Keppra (levetiracetam) 750 mg, two tablets in the morning and two tablets at night. No side effects reported from increased dose. - Educated patient on signs of nocturnal seizures, including blood in the mouth, tongue biting, and disordered bed sheets. - Will reassess the need for Keppra after completion of radiation therapy. 2. Essential tremor (G25.0) - Mild improvement in tremor with current primidone 50 mg, one tablet at night. - Increase primidone to 50 mg, two tablets at night to further control tremor. - Gradual tapering of propranolol from 15 mg BID to 10 mg BID for 30 days, then 5 mg BID for 30 days, with discontinuation by March 16. - Monitor for any worsening of tremor during propranolol taper; may adjust primidone dose if necessary. - Follow-up in 6 months. Data reviewed as above including: electronic medical record, MRI images Education The following issues were discussed with the patient on this visit and written instructions provided as below- Seizure precautions and safety, seizure first aide, when to seek emergency care. Counseling was provided to the patient that missed medications, addition of some new medications, use of alcohol or other substances, and sleep deprivation can lower the seizure threshold. Patient was advised to not drive until released by a physician. I discussed the risk of depression and psychological comorbidities in patients with epilepsy and when to seek help as well as all anti-seizure medication level medications which can increase risk for suicidality. Patient was given my clinic contact information. She does not drive for other medical reasons. Medical Management Continue current medications. Prescriptions sent to pharmacy. Medication changes were discussed. The possibility of serious and adverse reactions were discussed in detail as well as proper use of medication. I discussed that not taking this medication as directed could worsen seizures and can be dangerous. I discussed the risks, benefits and alternatives of the medical plan with the patient. Questions were answered. The patient agreed with the plan as discussed. FOLLOW-UP: Return in about 6 months (around 07/19/2025). I spent a total of 15 minutes on the date of the service which included: preparing to see the patient [id number] patient care completing clinical documentation obtaining and/or reviewing separately obtained history counseling and educating the patient/family/caregiver ordering medications, tests, or procedures communicating results to the patient/family/caregiver Gerald Cline MD cc: Primary Care Physician: Zoë Kaplan NP, [employer] [address] [place] [id number] Referring: Patient: Ms. Reshma Evans [id number] [facility] [id number] documented in this encounter [facility] 01-16-2025 Instructions Gerald Cline MD - 01/16/2025 9:58 AM EDT - Continue your Keppra as prescribed: take two 750 mg tablets in the morning and two 750 mg tablets at night; refills have been sent to [email or web address] for home delivery. - Increase your primidone for tremor control from 50 mg to 100 mg at bedtime (take two 50 mg tablets each night); the new prescription has been sent to [facility]. - Taper off propranolol (Inderal) over two months to avoid sudden heart changes: for the first 30 days, take one 10 mg tablet twice daily; for the next 30 days, take half of a 10 mg tablet twice daily; then stop completely. Refills and taper instructions have been sent to [facility]. - If you notice an increase in tremor, call office so we may increase the primidone dose. - Watch for any signs of a nighttime seizure--blood on the pillow, a bitten tongue or cheek, very messy sheets, or waking up feeling sore--and call our office right away if any of these occur. - Plan to return for follow-up in six months to review your progress and adjust treatment as needed. documented in this encounter [facility] 01-02-2025 Note HNO ID: [id number] Author: VINCE TEJEDA RN Service: ? Author Type: Registered Nurse Type: Progress Notes Filed: 01/02/2025 14:15 Note Text: Radiation Therapy - Patient Education Note PATIENT NAME: Reshma Evans PATIENT January 02, 2025 [facility] FACILITY/LOCATION: [place] READINESS TO LEARN Cognitive Ability: Alert and oriented Motivation to learn: Eager Interested Family Support: High - Very involved in pt care Instruction provide to: Patient and Family member Patient learns best by: Multiple Methods Factors effecting learning: None Physical limitations effecting learning: None LEARNING RESPONSE Diagnosis: Pt simulated today for radiation therapy to brain. Education Topic/Teaching Points: Radiation therapy, Side effects, and OTV: Method of instruction: Teach Back skin care Individual instruction Written instruction/Handouts Verbal instruction Patient /Family response: Patient and family verbalized understanding of radiation treatments, side effects, OTV, and transportation. Follow-up plan: Patient instructed to call with any further issues Contact information given. Supplemental material: Informational handouts on Department phone list, Brain tumor packet, Fatigue, and [place] instructions, XRT sheet and Aquaphor handout. 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 Was PED reviewed? No Patient has an Onbody or Implanted device: Yes, person notified was: Person had on a [employer] heart monitor that was applied yesterday. It was removed prior to simulation and device was given to patient. Signed by: Vince Tejeda RN [facility] 01-02-2025 History of Present illness Narrative Radiation Therapy - Patient Education Note PATIENT NAME: Reshma Evans PATIENT January 02, 2025 [facility] FACILITY/LOCATION: [place] READINESS TO LEARN Cognitive Ability: Alert and oriented Motivation to learn: Eager Interested Family Support: High - Very involved in pt care Instruction provide to: Patient and Family member Patient learns best by: Multiple Methods Factors effecting learning: None Physical limitations effecting learning: None LEARNING RESPONSE Diagnosis: Pt simulated today for radiation therapy to brain. Education Topic/Teaching Points: Radiation therapy, Side effects, and OTV: Method of instruction: Teach Back skin care Individual instruction Written instruction/Handouts Verbal instruction Patient /Family response: Patient and family verbalized understanding of radiation treatments, side effects, OTV, and transportation. Follow-up plan: Patient instructed to call with any further issues Contact information given. Supplemental material: Informational handouts on Department phone list, Brain tumor packet, Fatigue, and [place] instructions, XRT sheet and Aquaphor handout. 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 Was PED reviewed? No Patient has an Onbody or Implanted device: Yes, person notified was: Person had on a [employer] heart monitor that was applied yesterday. It was removed prior to simulation and device was given to patient. Signed by: Vince Tejeda RN documented in this encounter [facility] 01-02-2025 History of Present illness Narrative RESHMA EVANS [id number] 01/02/2025 [facility] Department of Radiation Oncology [facility] RADIATION ONCOLOGY SIMULATION NOTE DATE OF SIMULATION: 01/02/2025 MACHINE: Siemens Definition CT Simulator Diagnosis: 1. 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 2. 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 CONTRAST: None PROTOCOL: None BLOCKING: Custom blocking to be determined at treatment planning. FIXATION DEVICE: In order to achieve accurate and reproducible treatments, the patient is to be immobilized with AIO orfit system and mask. PROCEDURE: A time-out was conducted and recorded by the therapist. Patient was simulated on the CT scanner for external beam radiation therapy. Treatment site was marked by the simulation therapist. ASSESSMENT/PLAN: Patient tolerated simulation procedure well. Treatments will be initiated after treatment planning. The patient is scheduled for a verification simulation on the treatment machine to ensure proper set-up and field arrangement is correct prior to the first treatment of primary and boost pandya if applicable. Electronically Signed Linda Mckeon M.D./yelitza 52:11 PM documented in this encounter [facility] 01-02-2025 History of Present illness Narrative RESHMA EVANS R [id number] 01/02/2025 [facility] [place] [facility] - Department of Radiation Oncology Treatment Planning Note For reasons stated in the consult note, Reshma Evans is a candidate for radiation therapy. Based on review and interpretation of the relevant diagnostic studies together with the exam findings, Reshma Evans was simulated on 01/02/2025 at which time the target volume and/or requisite pandya were delineated, as indicated in the simulation note, to be treated according to the prescription. The treatment target and organs at risk were contoured on the simulation scan Using the fused / MRI. After reviewing multiple treatment plans with dosimetry, the best plan was approved to deliver the prescribed course of radiation to the target area using inverse planning to allow for the best isodose distribution, treating to the 97.3% isodose line with 6 MV and 3 pandya. Custom MLC for IMRT were the treatment device(s) used to shape/modify the beams. Limiting dose to normal tissue was confirmed upon review of the calculated dose volume histogram. IMRT planning was used because it best met the dose/volume constraints for the organs at risk for this patient, better than what could be achieved using conventional or 3D planning. The specific dose requirements for the PTV, organs at risk and dose-volume histograms are contained in this treatment plan and/or elsewhere in the medical record. A completed summary of this plan dated 01/14/2025 incorporated herein by reference includes dose, beam arrangements, energy, blocking, isodose distribution, and/or ports and DVH. Electronically Signed Linda Mckeon M.D. 0:56 AM documented in this encounter [facility] 01-02-2025 Note HNO ID: [id number] Author: LINDA MCKEON MD Service: Radiation Oncology Author Type: Physician Type: Progress Notes Filed: 01/09/2025 14:11 Note Text: NATHAN RESHMA Ronit [id number] 01/02/2025 [facility] Department of Radiation Oncology [facility] RADIATION ONCOLOGY SIMULATION NOTE DATE OF SIMULATION: 01/02/2025 MACHINE: its learning Definition CT Simulator Diagnosis: 1. 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 2. 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 CONTRAST: None PROTOCOL: None BLOCKING: Custom blocking to be determined at treatment planning. FIXATION DEVICE: In order to achieve accurate and reproducible treatments, the patient is to be immobilized with AIO orfit system and mask. PROCEDURE: A time-out was conducted and recorded by the therapist. Patient was simulated on the CT scanner for external beam radiation therapy. Treatment site was marked by the simulation therapist. ASSESSMENT/PLAN: Patient tolerated simulation procedure well. Treatments will be initiated after treatment planning. The patient is scheduled for a verification simulation on the treatment machine to ensure proper set-up and field arrangement is correct prior to the first treatment of primary and boost pandya if applicable. Electronically Signed Linda Mckeon M.D./ :11 PM [facility] 01-02-2025 Note HNO ID: [id number] Author: LINDA MCKEON MD Service: Radiation Oncology Author Type: Physician Type: Progress Notes Filed: 01/14/2025 10:56 Note Text: RESHMA EVANS [id number] 01/02/2025 [facility] [place] [facility] Department of Radiation Oncology Treatment Planning Note For reasons stated in the consult note, Reshma Evans is a candidate for radiation therapy. Based on review and interpretation of the relevant diagnostic studies together with the exam findings, Reshma Evans was simulated on 01/02/2025 at which time the target volume and/or requisite pandya were delineated, as indicated in the simulation note, to be treated according to the prescription. The treatment target and organs at risk were contoured on the simulation scan Using the fused / MRI. After reviewing multiple treatment plans with dosimetry, the best plan was approved to deliver the prescribed course of radiation to the target area using inverse planning to allow for the best isodose distribution, treating to the 97.3% isodose line with 6 MV and 3 pandya. Custom MLC for IMRT were the treatment device(s) used to shape/modify the beams. Limiting dose to normal tissue was confirmed upon review of the calculated dose volume histogram. IMRT planning was used because it best met the dose/volume constraints for the organs at risk for this patient, better than what could be achieved using conventional or 3D planning. The specific dose requirements for the PTV, organs at risk and dose-volume histograms are contained in this treatment plan and/or elsewhere in the medical record. A completed summary of this plan dated 01/14/2025 incorporated herein by reference includes dose, beam arrangements, energy, blocking, isodose distribution, and/or ports and DVH. Electronically Signed Linda Mckeon M.D. 510:56 AM [facility] 12-27-2024 Note HNO ID: [id number] Author: LINDA MCKEON MD Service: ? Author Type: Physician Type: Progress Notes Filed: 12/31/2024 09:57 Note Text: Radiation Oncology - New Patient/Consult Note PATIENT NAME: Reshma Evans PATIENT REQUESTING PROVIDER: Dr. Neymar Jeronimo DIAGNOSIS: 1. 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 2. 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 Final recommendations will be communicated back to the requesting physician by way of the shared medical record, or letter to requesting physician via [place] mail. 84 year old woman who initially had WHO grade 1 meningioma in 2010 in the left frontal pole. He underwent left frontal craniotomy for meningioma resection, exenteration of frontal sinus on 09/24/[address] Lee Mckeon. 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 She had left eye proptosis and fuzzy vision last year. MRI brain on 02/07/24 showed T1 hypointense, T2 hyperintense, diffusion restricting avidly enhancing extra-axial dural based mass in the left middle cranial fossa along the greater wing of the sphenoid measuring at least 2.0 x 2.5 x 2.9 cm (TV X AP X CC) involving the greater wing of sphenoid, likely a meningioma. Extracranial extension into the left temporalis muscle as well as extension into the lateral extraconal orbital soft tissues is noted. There is extensive dural thickening and enhancement particularly of the left frontal and temporal convexities measuring up to 0.7cm in thickness which is nonspecific though is likely related to mass. There is involvement of the left anterior clinoid and optic strut. An additional extra-axial dural based enhancing mass of the right anterior clinoid process measures 0.9 x 0.8 x 0.9 cm (TV X AP X CC), likely an additional meningioma without significant associated mass effect. 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 Ki-67 index was about 5%. MRI brain on 11/04/24 showed that the left sided residual tumor increased in size slightly. She underwent GK SRS of the right anterior clinoid small meningioma on 12/06/24. ALLERGIES No Known Allergies Current Outpatient Medications on File Prior to Visit Medication Sig dexAMETHasone (DECADRON) 2 mg tablet Start the day after your Gamma Knife Procedure: Decadron (dexamethasone) Take 4 mg (2 tablets) daily for 3 days. Take 2 mg (1 tablet) daily for 3 days then Stop Decadron Patient should start on December 07, 2024. (Patient not taking: Reported on 12/26/2024) iv contrast (will be provided with radiology test) MRI Brain Inject, intravenously, once for 1 dose.No IV access, insert saline lock prior to beginning of sedation, infusion, injection of imaging exam.Discontinue saline lock post exam. If Pt. has a central line or IVAD, may access for administration according to line specific nursing protocol.Once exam is complete flush line and de-access according to line specific nursing protocol in the MR contrast administration guidelines link iv contrast (will be provided with radiology test) MRI Brain Localization Inject, intravenously, once for 1 dose.No IV access, insert saline lock prior to beginning of sedation, infusion, injection of imaging exam.Discontinue saline lock post exam. If Pt. has a central line or IVAD, may access for administration according to line specific nursing protocol.Once exam is complete flush line and de-access according to line specific nursing protocol in the MR contrast administration guidelines link primidone (MYSOLINE) 50 mg tablet Take 1 tablet by mouth daily at bedtime. rosuvastatin (CRESTOR) 10 mg tablet Take 1 tablet by mouth once daily. levETIRAcetam (KEPPRA) 750 mg tablet Take 2 tablets by mouth two times a day. acetaminophen (TYLENOL) 500 mg tablet 2 tablets by ORAL/FEEDING TUBE route every 6 hours. fluorometholone (FML LIQUID FILM) 0.1 % ophthalmic suspension Use 1 Drop in the left eye two times a day. multivitamin/iron/folic acid (CENTRUM ORAL) Take by mouth. gabapentin (NEURONTIN) 100 mg capsule Take 100 mg by mouth two times a day. propranolol (INDERAL) 10 mg tablet Take 15 mg by mouth two times a day. Cunningham-3 Fatty Acids-Vitamin E (FISH OIL) 1,000 mg cap Take 1 capsule by mouth. Cholecalciferol, Vitamin D3, (VITAMIN D) 1,000 unit ORAL Cap Take one(1) tablet daily. No current facility-administered medications on file prior to visit. PAST MEDICAL HISTORY Diagnosis Date Benign meningioma (HCC) BPPV (benign paroxysmal positional vertigo) Brain tumor (HCC) (more content not included)... [facility] 12-27-2024 History of Present illness Narrative Radiation Oncology - New Patient/Consult Note PATIENT NAME: Reshma Evans PATIENT REQUESTING PROVIDER: Dr. Neymar Jeronimo DIAGNOSIS: 1. 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 2. 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 Final recommendations will be communicated back to the requesting physician by way of the shared medical record, or letter to requesting physician via [place] mail. 84 year old woman who initially had WHO grade 1 meningioma in 2010 in the left frontal pole. He underwent left frontal craniotomy for meningioma resection, exenteration of frontal sinus on 09/24/[address] Lee Mckeon. 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 She had left eye proptosis and fuzzy vision last year. MRI brain on 02/07/24 showed T1 hypointense, T2 hyperintense, diffusion restricting avidly enhancing extra-axial dural based mass in the left middle cranial fossa along the greater wing of the sphenoid measuring at least 2.0 x 2.5 x 2.9 cm (TV X AP X CC) involving the greater wing of sphenoid, likely a meningioma. Extracranial extension into the left temporalis muscle as well as extension into the lateral extraconal orbital soft tissues is noted. There is extensive dural thickening and enhancement particularly of the left frontal and temporal convexities measuring up to 0.7cm in thickness which is nonspecific though is likely related to mass. There is involvement of the left anterior clinoid and optic strut. An additional extra-axial dural based enhancing mass of the right anterior clinoid process measures 0.9 x 0.8 x 0.9 cm (TV X AP X CC), likely an additional meningioma without significant associated mass effect. 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 Ki-67 index was about 5%. MRI brain on 11/04/24 showed that the left sided residual tumor increased in size slightly. She underwent GK SRS of the right anterior clinoid small meningioma on 12/06/24. ALLERGIES No Known Allergies Current Outpatient Medications on File Prior to Visit Medication Sig dexAMETHasone (DECADRON) 2 mg tablet Start the day after your Gamma Knife Procedure: Decadron (dexamethasone) Take 4 mg (2 tablets) daily for 3 days. Take 2 mg (1 tablet) daily for 3 days then Stop Decadron Patient should start on December 07, 2024. (Patient not taking: Reported on 12/26/2024) iv contrast (will be provided with radiology test) MRI Brain Inject, intravenously, once for 1 dose.No IV access, insert saline lock prior to beginning of sedation, infusion, injection of imaging exam.Discontinue saline lock post exam. If Pt. has a central line or IVAD, may access for administration according to line specific nursing protocol.Once exam is complete flush line and de-access according to line specific nursing protocol in the MR contrast administration guidelines link iv contrast (will be provided with radiology test) MRI Brain Localization Inject, intravenously, once for 1 dose.No IV access, insert saline lock prior to beginning of sedation, infusion, injection of imaging exam.Discontinue saline lock post exam. If Pt. has a central line or IVAD, may access for administration according to line specific nursing protocol.Once exam is complete flush line and de-access according to line specific nursing protocol in the MR contrast administration guidelines link primidone (MYSOLINE) 50 mg tablet Take 1 tablet by mouth daily at bedtime. rosuvastatin (CRESTOR) 10 mg tablet Take 1 tablet by mouth once daily. levETIRAcetam (KEPPRA) 750 mg tablet Take 2 tablets by mouth two times a day. acetaminophen (TYLENOL) 500 mg tablet 2 tablets by ORAL/FEEDING TUBE route every 6 hours. fluorometholone (FML LIQUID FILM) 0.1 % ophthalmic suspension Use 1 Drop in the left eye two times a day. multivitamin/iron/folic acid (CENTRUM ORAL) Take by mouth. gabapentin (NEURONTIN) 100 mg capsule Take 100 mg by mouth two times a day. propranolol (INDERAL) 10 mg tablet Take 15 mg by mouth two times a day. Cunningham-3 Fatty Acids-Vitamin E (FISH OIL) 1,000 mg cap Take 1 capsule by mouth. Cholecalciferol, Vitamin D3, (VITAMIN D) 1,000 unit ORAL Cap Take one(1) tablet daily. No current facility-administered medications on file prior to visit. PAST MEDICAL HISTORY Diagnosis Date Benign meningioma (HCC) BPPV (benign paroxysmal positional vertigo) Brain tumor (HCC) Diabetes (HCC) Epilepsy (HCC) HTN (hypertension) 02/14/2024 Hyperlipidemia 02/14/2024 Obesity Obstructive sleep apnea PONV (postoperative nausea and vomiting) SDH (subdural hematoma) (HCC) 02/13/2024 Sleep apnea Traumatic brain injury (HCC) Prior radiation therapy, collagen vascular disease, or inflammatory bowel disease: Yes, GK SRS to the right meningioma on 12/06/24 Any implanted or external electric devices? No status: Post-menopausal. PAST SURGICAL HISTORY Procedure Laterality Date ARTHRP KNE CONDYLE&PLATU MEDIAL&LAT COMPARTMENTS 07/10/1979 right BRAIN SURGERY HX 04/26/2024 Left pterional craniotomy PAST SURGICAL HISTORY OF Bilateral total knees RECONSTRUCT CLEFT PALATE Infancy RECONSTRUCTION ROTATOR CUFF AVULSION CHRONIC 07/10/2007 right REPAIR CLEFT LIP Infancy REVISE MEDIAN N/CARPAL TUNNEL SURG FAMILY HISTORY Problem Relation Age of Onset other (esophageal cancer [Other]) Brother 62 other (leukemia [Other]) Sister 49 Tremor No Family History Seizures No Family History Social History Tobacco Use Smoking status: Never Passive exposure: Never Smokeless tobacco: Never Vaping Use Vaping status: Never Used Substance Use Topics Alcohol use: Not Currently Comment: occasional/social Drug use: No COMPLETE REVIEW OF SYSTEMS: GENERAL: feeling well without fatigue, no recent change in weight HEENT: denies COSTELLO, change in hearing or vision, no other ENT complaints NECK: denies swelling or pain in neck RESPIRATORY: h/o sleep apnea. CARDIOVASCULAR: no chest pain, no palpitations GI: constipation : urination is normal MUSCULOSKELETAL: denies any painful or swollen joints, no muscle aches SKIN: no rash HEMATOLOGY/LYMPHOLOGY: negative for prolonged bleeding, no swollen lymph nodes NEURO: no numbness or paresthesias and no weakness of the extremities PHYSICAL EXAM: VS: BP (!) 123/6 Pulse 70 Temp 36.7 C (98.1 F) (Temporal) Resp 14 Wt 84.8 kg (187 lb) SpO2 97% BMI 30.18 kg/m KPS: 100 General Appearance: Alert and oriented. No acute distress. HEENT: NCAT. Sclera anicteric. EOMI. Neck: Normal ROM. Chest: No respiratory distress. Musculoskeletal: Normal ROM in extremities. Neuro: Speech fluent. Gait normal. No focal deficits. Hematologic: No signs of active bleeding. RADIOLOGY/LABORATORY DATA: see HPI ASSESSMENT AND PLAN: 84 year old woman with 1. 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 2. 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 I recommend radiation treatment there. I explained the rationale, benefits, alternative management options and potential complications of radiation treatment to the patient and she understands and agrees to proceed. It was explained and understood that other personnel such as radiation therapists, accelerator technician, and physicists will participate in planning and delivery of radiation treatment. Permanent tattoo brown will be placed to aid with positioning for daily treatment and the patient consented. Patient will have a simulation procedure within a week. Thank you very much for allowing us to participate in her care. Signed by: Linda Mckeon MD cc: Zoë Kaplan NP [address] [place] [address] Neymar Jasmeet [phone] [facility] [id number] Radiation Therapy - Nursing Note (Consult) PATIENT NAME: Reshma Evans PATIENT December 26, 2024 [facility] FACILITY/LOCATION: [place] Chief Complaint: concult Reason for visit: Consult. Referring physician: Internal provider Dr Costa Subjective Data: no complaints Additional Data Do you want to see a Metal Tile Lather? No Are you interested in information about fertility? No Status: Post-menopausal Stress Scale: On a scale of 0 to 10, what number best describes how much distress you have experienced in the past week?(0 being no distress and 10 being extreme distress) 5 Social work notified: Pt denied need to see social work case manager at this time. SIGNED by: Vince Tejeda RN documented in this encounter [facility] 12-26-2024 Note HNO ID: [id number] Author: VINCE TEJEDA RN Service: ? Author Type: Registered Nurse Type: Progress Notes Filed: 12/31/2024 09:57 Note Text: Radiation Therapy - Nursing Note (Consult) PATIENT NAME: Reshma Evans PATIENT December 26, 2024 [facility] FACILITY/LOCATION: [place] Chief Complaint: concult Reason for visit: Consult. Referring physician: Internal provider Dr Costa Subjective Data: no complaints Additional Data Do you want to see a Metal Tile Lather? No Are you interested in information about fertility? No Status: Post-menopausal Stress Scale: On a scale of 0 to 10, what number best describes how much distress you have experienced in the past week?(0 being no distress and 10 being extreme distress) 5 Social work notified: Pt denied need to see social work case manager at this time. SIGNED by: Vince Tejeda RN [facility] 12-18-2024 Telephone encounter Note Spoke with Sujatha, patients son. Let him know we would place consult for radiation oncology at [place] - Dr. Linda Mckeon. Provided him with phone # for Dr Mckeon's office. Let him know Dr Jeronimo told me on Monday she was going to email their team, I told Usjatha I would check with Dr Jeronimo tomorrow on this. Karli Cox RN [facility] 12-18-2024 Miscellaneous Notes Spoke with Sujatha, patients son. Let him know we would place consult for radiation oncology at [place] - Dr. Linda Mckeon. Provided him with phone # for Dr Mckeon's office. Let him know Dr Jeronimo told me on Monday she was going to email their team, I told Sujatha I would check with Dr Jeronimo tomorrow on this. Karli Cox RN documented in this encounter [facility] 12-13-2024 Telephone encounter Note The patients son called wanted to know how they need to go about scheduling for radiation in [place]. I told him we would talk with Dr. Jeronimo and her primary nurse on Monday and give him a call back as I did not see any details noted in the chart. He was thankful and understanding. Pete Butterfield RN [facility] 12-13-2024 Miscellaneous Notes The patients son called wanted to know how they need to go about scheduling for radiation in [place]. I told him we would talk with Dr. Jeronimo and her primary nurse on Monday and give him a call back as I did not see any details noted in the chart. He was thankful and understanding. Pete Butterfield RN documented in this encounter [facility] 12-06-2024 History of Present illness Narrative Radiology Service Progress Note PATIENT NAME: Reshma Evans DATE OF SERVICE: December 06, 2024 TIME: 8:16 AM PATIENT IDENTITY VERIFICATION COMPLETED USING TWO (2) IDENTIFIERS: Name and Date of confirmed by patient verbally and Name and Date of confirmed by identification band. FALL SCREENING: Has the patient had 2 falls in the last year or 1 fall with injury or currently using an Ambulatory Assistive Device (Walker, Cane, Wheelchair, Crutches, etc.)? No PATIENT GENDER DATA: Assigned female at . status: : No status: NO. PATIENT RELEVANT IMPLANT DATA REVIEWED: Not Applicable PATIENT PRESENTS WITH AN IMPLANTABLE OR ATTACHED ASSISTED LIVING COORDINATOR: No RADIOLOGY DEPARTMENT: CT; Exam(s) Completed: Brain PERIPHERAL IV DATA: Not applicable SIGNED BY: RT Constance(Ronit) December 06, 2024 8:16 AM documented in this encounter [facility] 12-06-2024 Note HNO ID: [id number] Author: SOCORRO SMITH RT(R) Service: Radiology Author Type: Technologist Type: Progress Notes Filed: 12/06/2024 08:20 Note Text: Radiology Service Progress Note PATIENT NAME: Reshma Evans DATE OF SERVICE: December 06, 2024 TIME: 8:16 AM PATIENT IDENTITY VERIFICATION COMPLETED USING TWO (2) IDENTIFIERS: Name and Date of confirmed by patient verbally and Name and Date of confirmed by identification band. FALL SCREENING: Has the patient had 2 falls in the last year or 1 fall with injury or currently using an Ambulatory Assistive Device (Walker, Cane, Wheelchair, Crutches, etc.)? No PATIENT GENDER DATA: Assigned female at . status: : No status: NO. PATIENT RELEVANT IMPLANT DATA REVIEWED: Not Applicable PATIENT PRESENTS WITH AN IMPLANTABLE OR ATTACHED ASSISTED LIVING COORDINATOR: No RADIOLOGY DEPARTMENT: CT; Exam(s) Completed: Brain PERIPHERAL IV DATA: Not applicable SIGNED BY: RT Constance(Ronit) December 06, 2024 8:16 AM [facility] 12-06-2024 Instructions Manju Mendosa RN - 12/06/2024 7:48 AM EDT [facility] Gamma Knife Center Discharge Instructions - As with any surgery there are risks and potential side effects. There is a slight chance of developing brain swelling days or months after the Gamma Knife radiosurgery. If you experience nausea, vomiting, severe headache, visual changes, difficulty speaking, a seizure or any other symptom unusual for you, contact your physician immediately or go to the nearest emergency room. These may or may not be symptoms of brain swelling. If you go to a physician or hospital other than the [facility] with any problem related to the Gamma Knife procedure, please notify your physician, Dr. Justin Jeronimo at [phone]. - Rarely, patients experience pain the day after their radiosurgery. You may take non-aspirin pain medication, such as Tylenol, if you are having any discomfort. - Some patients are placed on steroids, such as Decadron, and an antacid, such as Pepcid, following their radiosurgery. Certain conditions require these medications to lessen the chance of swelling around the treated area. When prescribed, these medications are extremely important in the period immediately following your Gamma Knife treatment and must be taken exactly as directed. The Gamma Knife nurse will discuss your particular situation with you. Do not take any decadron for the remainder of today. Begin following the below regimen on 12/07/24: Decadron (dexamethasone) 2 mg each tablet (take with food or snack and avoid taking near bedtime hours): Take 4 mg (2 tablets) daily for 3 days (MON, MON, MON). Take 2 mg (1 tablet) daily for 3 days (MON, MON, ). Stop Decadron Pepcid (famotidine) Take Pepcid 20 mg daily while on Decadron. Stop Pepcid when you stop Decadron. Resume all other regular medications. - Taking good care of your general health is an important step to recovery. Continue to eat well and get plenty of rest. If you have any non-urgent questions or concerns, please call your physician, Dr. Justin Jeronimo at [phone] Monday through Monday 8:00 am to 5:00 pm. In the evening or on weekends, call [phone] or toll-free [phone] and ask the wire machine operator to page your neurosurgeon's resident occupational therapy program director. documented in this encounter [facility] 12-06-2024 Note HNO ID: [id number] Author: MANJU MENDOSA RN Service: ? Author Type: Registered Nurse Type: Progress Notes Filed: 12/06/2024 11:08 Note Text: December 06, [id number] Reshma arrived ambulatory with slow gait with: Sujatha sterling [phone] Transportation home verified: yes, with son. [phone] Mask completed. To imaging for CT Scan and MRI. Reshma here for today for imaging, mask fitting, pre-planning for Icon mask based Gamma Knife Stereotactic Radiosurgery by radiation therapist, and single session mask based treatment. 0845 Reshma Evans returned to department for treatment # 1 of . ID verified with patient with two identifiers, name and birthdate. ID band applied. ZOHREH Hernadez assessed for the following: Does Reshma have any pain? No. Pain 0 on scale of 0-10 Does Reshma have: Difficulty chewing and/or swallowing: no Fall risk assessment: Not at risk for falls Concerns about physical or emotional abuse: no Allergies reviewed with patient, yes. Reshma is taking all her routine morning medications now. Denies pain or any other concerns. Is patient on immunotherapy? No. Patient's Age: 84 Menstruation Status: Post Menopausal 904 Decadron 10 mg po given prior to Gamma Knife SRS per order of Dr David Jeronimo MD. Patient assisted to treatment room. Gamma Knife SRS begun. 1010 Printed and verbal discharge instructions given to patient's sonSujatha as per Reshma's request. Instructions reviewed by this nurse and family verbalized an understanding. 1015 Gamma Knife Stereotactic Radiosurgery Completed. 1018 Pt then discharged. Manju Mendosa RN [facility] 12-06-2024 History of Present illness Narrative December 06, [id number] Reshma arrived ambulatory with slow gait with: Sujatha sterling [phone] Transportation home verified: yes, with son. [phone] Mask completed. To imaging for CT Scan and MRI. Reshma here for today for imaging, mask fitting, pre-planning for Icon mask based Gamma Knife Stereotactic Radiosurgery by radiation therapist, and single session mask based treatment. 08Tony Evans returned to department for treatment # 1 of . ID verified with patient with two identifiers, name and birthdate. ID band applied. ZOHREH Hernadez assessed for the following: Does Reshma have any pain? No. Pain 0 on scale of 0-10 Does Reshma have: Difficulty chewing and/or swallowing: no Fall risk assessment: Not at risk for falls Concerns about physical or emotional abuse: no Allergies reviewed with patient, yes. Reshma is taking all her routine morning medications now. Denies pain or any other concerns. Is patient on immunotherapy? No. Patient's Age: 84 Menstruation Status: Post Menopausal 904 Decadron 10 mg po given prior to Gamma Knife SRS per order of Dr David Jeronimo MD. Patient assisted to treatment room. Gamma Knife SRS begun. 1010 Printed and verbal discharge instructions given to patient's son, Sujatha as per Reshma's request. Instructions reviewed by this nurse and family verbalized an understanding. 1015 Gamma Knife Stereotactic Radiosurgery Completed. 1018 Pt then discharged. Manju Mendosa RN documented in this encounter [facility] 12-06-2024 History of Present illness Narrative Radiology Service Progress Note DATE OF SERVICE: December 06, 2024 TIME: 7:33 AM PATIENT WEIGHT: 183 LBS PATIENT IDENTITY VERIFICATION COMPLETED USING TWO (2) STANDARD IDENTIFIERS: Name and Date of confirmed by patient verbally and Name and Date of confirmed by identification band. FALL SCREENING: Has the patient had 2 falls in the last year or 1 fall with injury or currently using an Ambulatory Assistive Device (Walker, Cane, Wheelchair, Crutches, etc.)? No PATIENT GENDER DATA: Assigned female at . status: : No status: NO. ALLERGIES: Reviewed and unchanged CONTRAST ALLERGY: No EXAM: MRI - CONTRAST TYPE: GROUP II IV SITE: Ambulatory: A peripheral IV was started in the Left antecubital site with a Angio cath: 22 gauge. and A Saline lock was inserted per protocol IV SITE APPEARANCE: Clean,Dry and Intact SIGNATURE: Dorina Lovett RN PATIENT NAME: Reshma Evans DATE: December 06, 2024 TIME: 7:33 AM Radiology Service Progress Note PATIENT NAME: Reshma Evans DATE OF SERVICE: December 06, 2024 TIME: 7:50 AM PATIENT IDENTITY VERIFICATION COMPLETED USING TWO (2) IDENTIFIERS: Name and Date of confirmed by patient verbally. FALL SCREENING: Has the patient had 2 falls in the last year or 1 fall with injury or currently using an Ambulatory Assistive Device (Walker, Cane, Wheelchair, Crutches, etc.)? No PATIENT GENDER DATA: Assigned female at . status: : No status: NO. PATIENT RELEVANT IMPLANT DATA REVIEWED: Yes PATIENT PRESENTS WITH AN IMPLANTABLE OR ATTACHED ASSISTED LIVING COORDINATOR: No RADIOLOGY DEPARTMENT: MR; Exam(s) Completed: Head: Localization. Lavender Administered: Yes PERIPHERAL IV DATA: Site assessment: Clean,Dry and Intact, Site disposition Discontinued SIGNED BY: RT Anuel(Ronti) December 06, 2024 7:50 AM documented in this encounter [facility] 12-06-2024 Note HNO ID: [id number] Author: DORINA LOVETT RN Service: Nursing Author Type: Registered Nurse Type: Progress Notes Filed: 12/06/2024 07:41 Note Text: Radiology Service Progress Note DATE OF SERVICE: December 06, 2024 TIME: 7:33 AM PATIENT WEIGHT: 183 LBS PATIENT IDENTITY VERIFICATION COMPLETED USING TWO (2) STANDARD IDENTIFIERS: Name and Date of confirmed by patient verbally and Name and Date of confirmed by identification band. FALL SCREENING: Has the patient had 2 falls in the last year or 1 fall with injury or currently using an Ambulatory Assistive Device (Walker, Cane, Wheelchair, Crutches, etc.)? No PATIENT GENDER DATA: Assigned female at . status: : No status: NO. ALLERGIES: Reviewed and unchanged CONTRAST ALLERGY: No EXAM: MRI - CONTRAST TYPE: GROUP II IV SITE: Ambulatory: A peripheral IV was started in the Left antecubital site with a Angio cath: 22 gauge. and A Saline lock was inserted per protocol IV SITE APPEARANCE: Clean,Dry and Intact SIGNATURE: Dorina Lovett RN PATIENT NAME: Reshma Evans DATE: December 06, 2024 TIME: 7:33 AM [facility] 12-06-2024 Note HNO ID: [id number] Author: COLETTE PHAM RT(R) Service: Radiology Author Type: Technologist Type: Progress Notes Filed: 12/06/2024 11:39 Note Text: Radiology Service Progress Note PATIENT NAME: Reshma Evans DATE OF SERVICE: December 06, 2024 TIME: 7:50 AM PATIENT IDENTITY VERIFICATION COMPLETED USING TWO (2) IDENTIFIERS: Name and Date of confirmed by patient verbally. FALL SCREENING: Has the patient had 2 falls in the last year or 1 fall with injury or currently using an Ambulatory Assistive Device (Walker, Cane, Wheelchair, Crutches, etc.)? No PATIENT GENDER DATA: Assigned female at . status: : No status: NO. PATIENT RELEVANT IMPLANT DATA REVIEWED: Yes PATIENT PRESENTS WITH AN IMPLANTABLE OR ATTACHED ASSISTED LIVING COORDINATOR: No RADIOLOGY DEPARTMENT: MR; Exam(s) Completed: Head: Localization. 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 PROCEDURE: Under my direct supervision the patient was set up on the treatment table and all treatment parameters were verified, including patient identity and treatment site. CBCT obtained which was co-registered using the treatment planning system. Adaptive replan was verified and approved. Once the beam was turned on, the patient position and target location were continuously monitored during delivery of the SRS using infrared tracking. At all points of decision-making with regard to patient setup, I conferred with the certified medical assistant to approve the final setup. I was available throughout the SRS treatment to manage the execution of the treatment and make real-time adjustments in response to patient motion, target movement, or equipment issues to ensure accuracy and safety. The patient was evaluated by me after treatment and was discharged in stable condition. TREATMENT VOLUMES: GTV (Defined by neurosurgeon) PHYSICIST NAME: Huber Zapata, PhD INTERVENTIONS: None ASSESSMENT/PLAN: Patient tolerated procedure well. We will continue as planned. Electronically Signed AXEL MAXWELL M.D. 511:52 AM documented in this encounter [facility] 12-06-2024 History of Present illness Narrative RESHMA EVANS R [id number] 12/06/2024 [facility] Department of Radiation Oncology [facility] RADIATION ONCOLOGY GAMMA KNIFE TREATMENT PLANNING NOTE For reasons stated in the consult note, RESHMA EVANS is a candidate for definitive radiosurgery. Based on review and interpretation of the relevant diagnostic studies together with the exam findings, RESHMA EVANS was imaged on 12/06/2024. The CT and MRI imaging was fused and checked in Gamma Plan by the radiation oncologist/neurosurgeon and physicist and the target volume to be treated as well as the critical normal structure(s) were delineated. After participating in the treatment planning process with neurosurgery and medical physics, I approved the best plan to deliver my prescribed course of radiosurgery. The target tissue was planned using Gamma Plan to allow for the best isodose distribution and dosimetry/DVH. The dose to normal tissue and target tissue was confirmed upon review of the calculated dose. A completed summary of this plan dated 12/06/2024 incorporated herein by reference includes dose, isodose distribution and DVH. Electronically Signed Axel Maxwell M.D. 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 DELIVERED DOSE: 1400.0 cGy was prescribed to the 53% isodose line, which covered 100% of the target. The plan utilized 13 shots using 4 mm and composite sectors. GTV volume = 0.62 cm3. Maximum dose = 2640.0 cGy. Maximum diameter = 1.3 cm. MD/PD = 1.886. PIV/CTV = 1.645. Gradient Index = 2.9. Number of Fractions = 1. 1 separate treatment plans were devised. ELAPSED TREATMENT TIME: 53 minutes (one session). TIME [id number] TOLERANCE: Excellent. RESPONSE: To be evaluated. REMARKS: The patient will follow-up in 6 months with repeat MRI scan. Authorized user was present during the entire treatment. The total treatment time was within 10% of the written directive. Staff Physician Axel Maxwell M.D./ 1:56 AM Electronically Signed cc: Dr. 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 AREA:Brain PATIENT POSITION: Supine CONTRAST: None PROTOCOL: None FIXATION DEVICE: In order to achieve accurate and reproducible treatments, the patient is immobilized with custom 3-point mask and mold care. PROCEDURE: A time-out was conducted and recorded by the therapist. Patient was simulated on the Gamma Knife for SRS therapy. ASSESSMENT/PLAN: Patient tolerated simulation procedure well. Treatments will be initiated after treatment planning. Electronically Signed Axel Maxwell M.D. 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 AREA:Brain PATIENT POSITION: Supine CONTRAST: None PROTOCOL: None FIXATION DEVICE: In order to achieve accurate and reproducible treatments, the patient is immobilized with custom 3-point mask and mold care. PROCEDURE: A time-out was conducted and recorded by the therapist. Patient was simulated on the Gamma Knife for SRS therapy. ASSESSMENT/PLAN: Patient tolerated simulation procedure well. Treatments will be initiated after treatment planning. Electronically Signed Aexl Maxwell M.D. 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 PROCEDURE: Under my direct supervision the patient was set up on the treatment table and all treatment parameters were verified, including patient identity and treatment site. CBCT obtained which was co-registered using the treatment planning system. Adaptive replan was verified and approved. Once the beam was turned on, the patient position and target location were continuously monitored during delivery of the SRS using infrared tracking. At all points of decision-making with regard to patient setup, I conferred with the certified medical assistant to approve the final setup. I was available throughout the SRS treatment to manage the execution of the treatment and make real-time adjustments in response to patient motion, target movement, or equipment issues to ensure accuracy and safety. The patient was evaluated by me after treatment and was discharged in stable condition. TREATMENT VOLUMES: GTV (Defined by neurosurgeon) PHYSICIST NAME: Huber Zapata, PhD INTERVENTIONS: None ASSESSMENT/PLAN: Patient tolerated procedure well. We will continue as planned. Electronically Signed AXEL MAXWELL M.D. 511:52 AM [facility] 12-06-2024 Note HNO ID: [id number] Author: MENDEL MAXWELL MD Service: Radiation Oncology Author Type: Physician Type: Progress Notes Filed: 12/07/2024 11:52 Note Text: RESHMA EVANS [id number] 12/06/2024 [facility] Department of Radiation Oncology [facility] RADIATION ONCOLOGY GAMMA KNIFE TREATMENT PLANNING NOTE For reasons stated in the consult note, RESHMA EVANS is a candidate for definitive radiosurgery. Based on review and interpretation of the relevant diagnostic studies together with the exam findings, RESHMA EVANS was imaged on 12/06/2024. The CT and MRI imaging was fused and checked in Gamma Plan by the radiation oncologist/neurosurgeon and physicist and the target volume to be treated as well as the critical normal structure(s) were delineated. After participating in the treatment planning process with neurosurgery and medical physics, I approved the best plan to deliver my prescribed course of radiosurgery. The target tissue was planned using Gamma Plan to allow for the best isodose distribution and dosimetry/DVH. The dose to normal tissue and target tissue was confirmed upon review of the calculated dose. A completed summary of this plan dated 12/06/2024 incorporated herein by reference includes dose, isodose distribution and DVH. Electronically Signed Axel Maxwell M.D. 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 DELIVERED DOSE: 1400.0 cGy was prescribed to the 53% isodose line, which covered 100% of the target. The plan utilized 13 shots using 4 mm and composite sectors. GTV volume = 0.62 cm3. Maximum dose = 2640.0 cGy. Maximum diameter = 1.3 cm. MD/PD = 1.886. PIV/CTV = 1.645. Gradient Index = 2.9. Number of Fractions = 1. 1 separate treatment plans were devised. ELAPSED TREATMENT TIME: 53 minutes (one session). TIME [id number] TOLERANCE: Excellent. RESPONSE: To be evaluated. REMARKS: The patient will follow-up in 6 months with repeat MRI scan. Authorized user was present during the entire treatment. The total treatment time was within 10% of the written directive. Staff Physician Axel Maxwell M.D./ 511:56 AM Electronically Signed cc: Dr. Jeronimo, [facility] 11-28-2024 Telephone encounter Note Date of 12/06/2024--mask Krivosheya/Hiro meningioma PRE tx MRI and CT [place] to schedule post ops Received a phone call today from the pt's son Pina who was requesting to schedule GK for his mom. Let him know we could schedule pt for next Wednesday 12/06. He agreed and we discussed the plan for GK. Went over the plan for the day of GK, directions and where to report. Made sure to remind pt to bring any medications pt may need as they will be here the majority of the day. Additionally, let them know the GK team will call them the day before with arrival time. He verbalized understanding. Todd Castro RN BSN 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 [facility] Work Phone: 11-28-2024 Miscellaneous Notes Date of 12/06/2024--mask Krivosheya/Hiro meningioma PRE tx MRI and CT [place] to schedule post ops Received a phone call today from the pt's son Pina who was requesting to schedule GK for his mom. Let him know we could schedule pt for next Wednesday 12/06. He agreed and we discussed the plan for GK. Went over the plan for the day of GK, directions and where to report. Made sure to remind pt to bring any medications pt may need as they will be here the majority of the day. Additionally, let them know the GK team will call them the day before with arrival time. He verbalized understanding. Todd Castro RN BSN 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 documented in this encounter [facility] 11-27-2024 Note HNO ID: [id number] Author: MENDEL MAXWELL MD Service: ? Author Type: Physician Type: Progress Notes Filed: 11/27/2024 20:26 Note Text: DISTANCE HEALTH CONSULT VISIT I have communicated my name and active licensure. The patient?s identity and physical location were verified at the time of this visit. Reshma Evans or their legal veterans service representative has been informed of the risks and benefits of -- and alternatives to -- treatment through a remote evaluation and consents to proceed with the evaluation remotely. This visit is a MyChart Zoom encounter which required patient-provider interaction for the medical decision making as documented below. Total Time Spent: I spent a total of 30 minutes on the date of the service which included preparing to see the patient, [id number] patient care, completing clinical documentation, and counseling and educating the patient/family/caregiver. PATIENT NAME: Reshma Evans PATIENT REQUESTING PROVIDER: Neymar Jeronimo MD. 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 - Left pterional craniotomy for resection of sphenoid wing meningioma, Decompression of the optic canal and lateral orbit on 04/26/2024 - path: Meningioma, meningothelial type, WHO Grade 1, Ki76 ~ 5% 2.) Right anterior clinoid small meningioma, new since 2013. HPI: The patient is a 84 year old female who presents with above diagnosis, for an opinion regarding the role of radiation therapy in the management of the patient's disease. Final recommendations will be communicated back to the requesting physician by way of the shared medical record, or letter to requesting physician via US mail. Mrs. Evans has a known history of meningioma, initially resected by Dr. Mckeon in 2010. More recently, she was found to have progression when it was noted she had proptosis of her left eye and MRI was ordered showing progression of L orbital/sphenoid wing meningioma. She had fuzzy vision out of the left eye. She underwent resection and decompression, pathology c/w menintioma, meningothelial type, WHO Grade 1. She is doing well post resection. She has noted R anterior clinoid meningioma, which is new since 2013. Dr. Jeronimo reviewed the case with me. Plan is to discuss GKRS for her R clinoid meningioma, and consideration of conventional RT to L orbital meningioma. HISTORY REVIEWED (electronic chart updated): REVIEW OF SYSTEMS: GENERAL: feeling well without fatigue, no recent change in weight VIDEO PHYSICAL EXAMINATION: (if done, performed via video enabled technology) GENERAL: alert and appropriate, in no distress, well-hydrated, well nourished, and happy, smiling, interactive RADIOLOGY/LABORATORY DATA: * * *Final Report* * * DATE OF EXAM: Nov 04 2024 11:03AM [facility] [id number] - MRI PITUITARY WO/W IVCON / PROCEDURE REASON: Benign neoplasm of meninges (HCC) * * * * Physician Interpretation * * * * EXAMINATION: MRI BRAIN WO/W IVCON, MRI PITUITARY WO/W IVCON CLINICAL HISTORY: Benign neoplasm of meninges (HCC) TECHNIQUE: Routine brain MRI protocol without and with contrast including diffusion images. Specific Attention to the pituitary gland MQ: [id number] Contrast: 17 mL Dotarem IV COMPARISON: MR brain 08/01/2024 RESULT: Acute Change: There is no evidence of an acute intracranial process. Mass Lesion/ Mass Effect: Postsurgical changes from left anterior frontal and left temporal craniotomy, left orbital ceiling resection are again seen. Stable focal blood degradation products at the surgical site. Stable encephalomalacia in the left anterior frontal and temporal lobes. Stable dural thickening and enhancement over the left frontotemporal convexity, likely post operative. Again noted is extra-axial dural based enhancing mass in the left anterior frontal lobe, left superior and lateral orbit, left greater wing and lesser wing, left temporalis, left paranasal sinus, compatible with residual tumor. The portion arising from the left anterior frontal sinus has slightly enlarged, now measuring 1 cm in thickness (13:40) previously 0.7 cm. The portion in the lateral aspect of the left sphenoid sinus has slightly enlarged, now measuring 0.9 cm thickness on image 71, previously 0.7 cm. Again noted is tumor in the left optic canal and orbital apex. Stable left proptosis. The left optic nerve is likely compressed. Stable tumor in the left foramen of rotundum. The pituitary gland is normal. There is likely tumor involvement in the left cavernous sinus. Stable tumor arising from the posterolateral aspect of the right anterior clinoid measuring 1 x 0.9 cm. Chronic Change: Scatter (more content not included)... [facility] 11-21-2024 Telephone encounter Note Prescription Request: Last medication check: 01/02/2024 Last physical exam: 06/21/2024 Next scheduled appointment: 12/20/2024 Last date of refill on this medication: 06/21/2024 [facility] 11-21-2024 Miscellaneous Notes Prescription Request: Last medication check: 01/02/2024 Last physical exam: 06/21/2024 Next scheduled appointment: 12/20/2024 Last date of refill on this medication: 06/21/2024 documented in this encounter [facility] 11-12-2024 Telephone encounter Note Patient's son called to speak with Rohan Varghese RN. [phone] [facility] 11-12-2024 Miscellaneous Notes Patient's son called to speak with Rohan Varghese RN. [phone] documented in this encounter [facility] 11-12-2024 Telephone encounter Note Also called her son, Sujatha [phone] Maxwell's contact info: ZOHREH Joyce [phone]. Karli Cox RN [facility] 11-12-2024 Miscellaneous Notes Also called her son, Sujatha [phone] Maxwell's contact info: ZOHREH Joyce [phone]. Karli Cox RN Spoke with patient, asked to get her son's phone # that always is with her for appt - his name is Sujatha phone # [phone], she was ok with me adding him to her emergency contacts. I asked her if Dr Maxwell's office reached out and she did not know. She said the answering machine was not working well. I spoke with Trina patient's daughter and she is aware that radiation oncology called her mom. She is aware of radiation oncology phone # [phone] - ZOHREH Joyce Dr's RN. Karli Cox RN documented in this encounter [facility] 11-12-2024 Telephone encounter Note Spoke with patient, asked to get her son's phone # that always is with her for appt - his name is Sujatha phone # [phone], she was ok with me adding him to her emergency contacts. I asked her if Dr Maxwell's office reached out and she did not know. She said the answering machine was not working well. I spoke with Trina patient's daughter and she is aware that radiation oncology called her mom. She is aware of radiation oncology phone # [phone] - ZOHREH Joyce Dr RN. Karli Cox RN [facility] 11-04-2024 Instructions Neymar Jeronimo MD - 11/04/2024 12:43 PM EDT Reviewed MRI brain in detail. There appears to be diffuse enlargement of the howard-osseous (around the bone) component of the tumor on the left side. Given the slow increase in size, recommend radiation to the involved areas. We will help to arrange radiation consult in [place]. Also discussed GammaKnife treatment to the right sided nodule as it appears to be separate. Reviewed details of procedure and risks/benefits. Patient is agreeable to the procedure. We will call with details and to make the necessary arrangements. documented in this encounter [facility] 11-04-2024 History of Present illness Narrative Images from the original note were not included. 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 Nicola Cruz - [facility] [phone] Dr. Matson - [facility] Dr. Cline - post op seizure, on Keppra 1500 mg bid SUBJECTIVE: History of Present Illness. Reshma Evans is a 84 year old right-handed female presenting with son. PMH including HTN, HLD, KIMBERLY, DM. Patient has a past surgical history of left frontal craniotomy for meningioma resection, exenteration of frontal sinus 09/24/[address] Lee [facility]keon [facility] 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 She was seen at [facility] on 02/13/2024 after a fall after stepping off the curb. She struck the left side of her face. CT brain demonstrated a small left frontal SDH. Repeat imaging was stable. She was recommended to keep her outpatient follow up appointment. She was seen on 02/19/2024 where she had been doing well since fall. She initially had MRIs ordered from Dr. Cruz with opthalmology due to the left eye exophthalmus. She noted that this had started about 2 months prior. She stated that when she looked out of the left eye that vision was a bit fuzzy. 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 Left sphenoid wing meningioma with most of its mass located away from the optic nerve. Small right anterior clinoid meningioma noted that was new from MRI in 2013. Since optic nerve was not well visualized, she was recommended to have MRI pituitary to better assess. Her CT brain showed improvement in the left lateral subdural collection, more chronic in appearance. She was seen on 04/04/2024 where she followed up with MRI imaging - vision was the same, fuzziness in the left eye. She had intermittent headaches, resolved with tylenol. Her MRI brain showed on FIESTA sequences there appears to be significant compression of the optic nerve within the optic canal secondary to bone expansion of the intraosseous component of the tumor. She underwent Left pterional craniotomy for resection of sphenoid wing meningioma, Decompression of the optic canal and lateral orbit on 04/26/2024. She had her 2 week post operative visit on 05/20/2024 where she had been doing well overall. She was discharged from [place] [facility] today. Her incision was healing well and sutures were removed at the rehab facility. She denied any pain but sometimes had some pressure on the left side of her head since she sleeps on that side. She noticed her vision out of the left eye feels a little more clear with up close things but far away was still fuzzy. She had an upcoming appointment with Dr Cline 07/04/2024. Her optic canal was well compressed. Pathology showed Grade 1 meningioma with Ki67 of 5 %. She was recommended to follow up at 3 months post operative with MRI. She was recommended to see Dr. Barcenas for incidental rt ICA aneurysm. She was last seen on 08/01/2024 where she had been doing well overall. She felt fatigued and sometimes felt like she doesn't want to do things that she used to do. She did follow up with Dr Cline and was still on Keppra. She still had the left side head pressure some days. She felt like her left eye will sometimes feel swollen since she sleeps on her left. MRI brain showed a stable right ant clinoid meningioma with postoperative changes on the left with no evidence of nodular tumor recurrence, extensive dural thickening, postoperative and tumor involvement. Small post operative epidural fluid collection above the orbit. No significant mass effect. She was recommended to follow up in 3 months with MRI imaging. She would consider GKRS to right anterior clinoid meningioma. Today she reports that she has been doing well overall. She feels like the head pressure on her left is better than prior. She has been compliant with keppra, but doesn't love how it makes her feel. They will discuss this with Dr Cline, has follow up with him scheduled in January. She also feels like her legs feel weak since surgery. Just does not feel as strong as they were prior to surgery. She feels like her vision is about the same. Has been using readers. She has an appointment with Dr. Matson with ophthalmology @ [place] on Monday11/11/2024. Keppra 1500mg bid PAIN EVALUATION No data found in the last 1 encounters. PAST MEDICAL HISTORY Diagnosis Date Benign meningioma (HCC) BPPV (benign paroxysmal positional vertigo) Brain tumor (HCC) Diabetes (HCC) Epilepsy (HCC) HTN (hypertension) 02/14/2024 Hyperlipidemia 02/14/2024 Obesity Obstructive sleep apnea PONV (postoperative nausea and vomiting) SDH (subdural hematoma) (HCC) 02/13/2024 Sleep apnea Traumatic brain injury (HCC) PAST SURGICAL HISTORY Procedure Laterality Date ARTHRP KNE CONDYLE&PLATU MEDIAL&LAT COMPARTMENTS 07/10/1979 right BRAIN SURGERY HX 04/26/2024 Left pterional craniotomy PAST SURGICAL HISTORY OF Bilateral total knees RECONSTRUCT CLEFT PALATE Infancy RECONSTRUCTION ROTATOR CUFF AVULSION CHRONIC 07/10/2007 right REPAIR CLEFT LIP Infancy REVISE MEDIAN N/CARPAL TUNNEL SURG FAMILY HISTORY Problem Relation Age of Onset other (esophageal cancer [Other]) Brother 62 other (leukemia [Other]) Sister 49 Tremor No Family History Seizures No Family History ALLERGIES No Known Allergies Current Outpatient Medications Medication Sig Dispense Refill primidone (MYSOLINE) 50 mg tablet Take 1 tablet by mouth daily at bedtime. 90 tablet 1 rosuvastatin (CRESTOR) 10 mg tablet Take 1 tablet by mouth once daily. levETIRAcetam (KEPPRA) 750 mg tablet Take 2 tablets by mouth two times a day. 360 tablet 3 acetaminophen (TYLENOL) 500 mg tablet 2 tablets by ORAL/FEEDING TUBE route every 6 hours. fluorometholone (FML LIQUID FILM) 0.1 % ophthalmic suspension Use 1 Drop in the left eye two times a day. multivitamin/iron/folic acid (CENTRUM ORAL) Take by mouth. gabapentin (NEURONTIN) 100 mg capsule Take 100 mg by mouth two times a day. propranolol (INDERAL) 10 mg tablet Take 15 mg by mouth two times a day. Cunningham-3 Fatty Acids-Vitamin E (FISH OIL) 1,000 mg cap Take 1 capsule by mouth. Cholecalciferol, Vitamin D3, (VITAMIN D) 1,000 unit ORAL Cap Take one(1) tablet daily. No current facility-administered medications for this visit. OBJECTIVE: BP 146/85 Pulse 60 Resp 16 Ht 5' 6 (1.68m) Wt 183 lb 6.8 oz (83.2kg) SpO2 98% BMI 29.62 kg/(m^2). PHYSICAL EXAM A&Ox3, speech fluent but mechanical, not changed SUJIT 3 mm EOM are full Per patient, the vision in left eye has significantly improved from pre op Left eye - persistent proptosis and swelling Face symmetric No pronator drift Grossly inta in UEs and LEs Data Review IMAGING STUDIES: MRI brain and MRI pituitary obtained on 11/04/2024 demonstrates: Final read pending 11/04/2024 vs 04/04/2025 11/04/2024 vs 08/01/2024 Images independently reviewed The following portions of the patient's history were reviewed, confirmed, updated as necessary: allergies, current medications, past family history, past medical history, past social history, past surgical history, problem list, HPI and ROS obtained by others. The clinical and radiographic findings as well as the risks, benefits, and alternatives of treatment have been reviewed in detail with the patient. ASSESSMENT/PLAN 1. Intracranial meningioma (HCC) (Primary) Reviewed MRI brain - complete resection of the intracranial component of meningioma with no evidence of recurrence. There has been significant progression of the howard osseous component of tumor however along the frontal and sphenoid bone. Slight increase of the right anterior clinoid tumor that is separate from the left sided tumor (and this is new from 2013). Given significant progression on the left and the extent of the tumor involvement, recommend radiation to the involved area. Since this is diffuse disease, conventional radiation treatment is a better option. We also discussed that the right sided small meningioma that is new since 2013 and slight increase when compared to 04/2024 scan is separate from the left sided tumor and is well localized and would be a good candidate for receiving Gamma Knife radiosurgery to the lesion to prevent further growth. Will arrange referral to the radiation oncology to further discuss treatments. If they decided to proceed with both treatments, will set up GKRS in [place] and XRT locally in [place]. Encouraged patient to contact our office should there be any further questions, concerns, or change in symptoms. Patient expressed understanding and is in agreement with plan. Some elements may have been copied from a previous note and have been updated/reviewed where appropriate. All portions reflect current medical decision making from today. Neymar Jeronimo MD I spent a total of 40 minutes on the date of the service which included preparing to see the patient, [id number] patient care, completing clinical documentation, obtaining and/or reviewing separately obtained history, performing a medically appropriate examination, counseling and educating the patient/family/caregiver, ordering medications, tests, or procedures, independently interpreting results (not separately reported), and communicating results to the patient/family/caregiver. documented in this encounter [facility] 11-04-2024 Note HNO ID: [id number] Author: NEYMAR JERONIMO MD Service: ? 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 Nicola Cruz - [facility] [phone] Dr. Matson - [facility] Dr. Cline - post op seizure, on Keppra 1500 mg bid SUBJECTIVE: History of Present Illness. Reshma Evans is a 84 year old right-handed female presenting with son. PMH including HTN, HLD, KIMBERLY, DM. Patient has a past surgical history of left frontal craniotomy for meningioma resection, exenteration of frontal sinus 09/24/[address] Lee Mckeon [facility]. 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 She was seen at [facility] on 02/13/2024 after a fall after stepping off the curb. She struck the left side of her face. CT brain demonstrated a small left frontal SDH. Repeat imaging was stable. She was recommended to keep her outpatient follow up appointment. She was seen on 02/19/2024 where she had been doing well since fall. She initially had MRIs ordered from Dr. Cruz with opthalmology due to the left eye exophthalmus. She noted that this had started about 2 months prior. She stated that when she looked out of the left eye that vision was a bit fuzzy. 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 Left sphenoid wing meningioma with most of its mass located away from the optic nerve. Small right anterior clinoid meningioma noted that was new from MRI in 2013. Since optic nerve was not well visualized, she was recommended to have MRI pituitary to better assess. Her CT brain showed improvement in the left lateral subdural collection, more chronic in appearance. She was seen on 04/04/2024 where she followed up with MRI imaging - vision was the same, fuzziness in the left eye. She had intermittent headaches, resolved with tylenol. Her MRI brain showed on FIESTA sequences there appears to be significant compression of the optic nerve within the optic canal secondary to bone expansion of the intraosseous component of the tumor. She underwent Left pterional craniotomy for resection of sphenoid wing meningioma, Decompression of the optic canal and lateral orbit on 04/26/2024. She had her 2 week post operative visit on 05/20/2024 where she had been doing well overall. She was discharged from [facility] today. Her incision was healing well and sutures were removed at the rehab facility. She denied any pain but sometimes had some pressure on the left side of her head since she sleeps on that side. She noticed her vision out of the left eye feels a little more clear with up close things but far away was still fuzzy. She had an upcoming appointment with Dr Cline 07/04/2024. Her optic canal was well compressed. Pathology showed Grade 1 meningioma with Ki67 of 5 %. She was recommended to follow up at 3 months post operative with MRI. She was recommended to see Dr. Barcenas for incidental rt ICA aneurysm. She was last seen on 08/01/2024 where she had been doing well overall. She felt fatigued and sometimes felt like she doesn't want to do things that she used to do. She did follow up with Dr Cline and was still on Keppra. She still had the left side head pressure some days. She felt like her left eye will sometimes feel swollen since she sleeps on her left. MRI brain showed a stable right ant clinoid meningioma with postoperative changes on the left with no evidence of nodular tumor recurrence, extensive dural thickening, postoperative and tumor involvement. Small post operative epidural fluid collection above the orbit. No significant mass effect. She was recommended to follow up in 3 months with MRI imaging. She would consider GKRS to right anterior clinoid meningioma. Today she reports that she has been doing well overall. She feels like the head pressure on her left is better than prior. She has been compliant with keppra, but does (more content not included)... [facility] 11-04-2024 History of Present illness Narrative Radiology Service Progress Note DATE OF SERVICE: November 04, 2024 TIME: 10:37 AM PATIENT IDENTITY VERIFICATION COMPLETED USING TWO (2) STANDARD IDENTIFIERS: Name and Date of confirmed by patient verbally. FALL SCREENING: Has the patient had 2 falls in the last year or 1 fall with injury or currently using an Ambulatory Assistive Device (Walker, Cane, Wheelchair, Crutches, etc.)? No PATIENT GENDER DATA: Assigned female at . status: : No status: NO. PATIENT RELEVANT IMPLANT DATA REVIEWED: Not Applicable PATIENT PRESENTS WITH AN IMPLANTABLE OR ATTACHED ASSISTED LIVING COORDINATOR: No ALLERGIES: Reviewed and unchanged CONTRAST ALLERGY: NO. EXAM: MRI - CONTRAST TYPE: GROUP II PERIPHERAL IV DATA: Ambulatory: A peripheral IV was started in the Right antecubital site with a Angio cath: 22 gauge. RADIOLOGY DEPARTMENT: MR; Exam(s) Completed: Head: Routine Brain Pituitary. Lavender Administered: No SIGNATURE: RT Michelet(Ronit) PATIENT NAME: Reshma Evans DATE: November 04, 2024 TIME: 10:37 AM documented in this encounter [facility] 11-04-2024 Note HNO ID: [id number] Author: GLENDY ZAPATA RT(R) Service: Radiology Author Type: Technologist Type: Progress Notes Filed: 11/04/2024 10:37 Note Text: Radiology Service Progress Note DATE OF SERVICE: November 04, 2024 TIME: 10:37 AM PATIENT IDENTITY VERIFICATION COMPLETED USING TWO (2) STANDARD IDENTIFIERS: Name and Date of confirmed by patient verbally. FALL SCREENING: Has the patient had 2 falls in the last year or 1 fall with injury or currently using an Ambulatory Assistive Device (Walker, Cane, Wheelchair, Crutches, etc.)? No PATIENT GENDER DATA: Assigned female at . status: : No status: NO. PATIENT RELEVANT IMPLANT DATA REVIEWED: Not Applicable PATIENT PRESENTS WITH AN IMPLANTABLE OR ATTACHED ASSISTED LIVING COORDINATOR: No ALLERGIES: Reviewed and unchanged CONTRAST ALLERGY: NO. EXAM: MRI - CONTRAST TYPE: GROUP II PERIPHERAL IV DATA: Ambulatory: A peripheral IV was started in the Right antecubital site with a Angio cath: 22 gauge. RADIOLOGY DEPARTMENT: MR; Exam(s) Completed: Head: Routine Brain Pituitary. Lavender Administered: No SIGNATURE: Glendy Zapata, RT(R) PATIENT NAME: Reshma Evans DATE: November 04, 2024 TIME: 10:37 AM [facility] 10-18-2024 Telephone encounter Note Called pt who stated that she has issues trying to get in to sign the contract as she doesn't drive. I let her know I would upload a copy to her MyChart, if her kids could help her print it out, have her sign and then re-upload it to her MyChart so we can make sure it gets in her chart. Otherwise, there will be a copy at the front desk admin for her to sign when she is able to make it in to sign it. [facility] 10-18-2024 Miscellaneous Notes Called pt who stated that she has issues trying to get in to sign the contract as she doesn't drive. I let her know I would upload a copy to her MyChart, if her kids could help her print it out, have her sign and then re-upload it to her MyChart so we can make sure it gets in her chart. Otherwise, there will be a copy at the front desk admin for her to sign when she is able to make it in to sign it. Rx sent. OARRS report reviewed with no discrepancies. CSA needs signed. Follow up as scheduled. Csa I don't see one Medication name: gabapentin (Neurontin) 100 MG capsule Medication dosage: 100 mg (Miligrams Monthly quantity needed: 180 How many day supply requestin year Medication route: oral (PO) Medication administration time(s): 2 times a day (BID) If taking medication PRN, reason for taking medication: N/A If this is a controlled substance do you receive this or any other controlled medication from any other doctor or facility: No Ordering provider: CARLEE Barclay Date of last office visit: 06.21.2024 Date of next office visit: 12.20.2024 Date of last refill: (see medication tab): 07.15.2024 Updated/Validated preferred pharmacy: Yes Patient instructed to contact the pharmacy prior to picking up the medication: Yes documented in this encounter [facility] 10-18-2024 Telephone encounter Note Rx sent. OARRS report reviewed with no discrepancies. CSA needs signed. Follow up as scheduled. [facility] 10-18-2024 Telephone encounter Note Csa I don't see one [facility] 10-18-2024 Telephone encounter Note Medication name: gabapentin (Neurontin) 100 MG capsule Medication dosage: 100 mg (Miligrams Monthly quantity needed: 180 How many day supply requestin year Medication route: oral (PO) Medication administration time(s): 2 times a day (BID) If taking medication PRN, reason for taking medication: N/A If this is a controlled substance do you receive this or any other controlled medication from any other doctor or facility: No Ordering provider: CARLEE Barclay Date of last office visit: 06.21.2024 Date of next office visit: 12.20.2024 Date of last refill: (see medication tab): 07.15.2024 Updated/Validated preferred pharmacy: Yes Patient instructed to contact the pharmacy prior to picking up the medication: Yes [facility] 10-08-2024 Telephone encounter Note The following approved medication requests have been transmitted electronically. Requested Prescriptions Signed Prescriptions Disp Refills primidone (MYSOLINE) 50 mg tablet 10 tablet 0 Sig: Take 1 tablet by mouth daily at bedtime for 10 days. Bridge supply Authorizing Provider: MELO TIPTON PA-C [facility] 10-08-2024 Miscellaneous Notes The following approved medication requests have been transmitted electronically. Requested Prescriptions Signed Prescriptions Disp Refills primidone (MYSOLINE) 50 mg tablet 10 tablet 0 Sig: Take 1 tablet by mouth daily at bedtime for 10 days. Bridge supply Authorizing Provider: MELO TIPTON PA-C 10 day Bridge supply Request to local pharmacy. New Rx needed for 90 day fill with Mail Order Pharmacy (routed today as well). Patient will be out of medication before mail order delivery arrives Prescription Refill: Requested by: patient's son: Sujatha Please E-Scribe Caller Contact Number: [phone] Pharmacy Name: [facility] [place], [place] Pharmacy Number: [phone] Generic/ brand: generic 30 or 90 day supply requested: 10 day Bridge Supply Last appointment: 07/04/2024 Next Appointment: 01/16/[address] Marlyn Evans [id number] [facility] [address] documented in this encounter [facility] 10-08-2024 Telephone encounter Note The following approved medication requests have been transmitted electronically. Requested Prescriptions Signed Prescriptions Disp Refills primidone (MYSOLINE) 50 mg tablet 90 tablet 1 Sig: Take 1 tablet by mouth daily at bedtime. Authorizing Provider: MELO TIPTON PA-C [facility] 10-08-2024 Miscellaneous Notes The following approved medication requests have been transmitted electronically. Requested Prescriptions Signed Prescriptions Disp Refills primidone (MYSOLINE) 50 mg tablet 90 tablet 1 Sig: Take 1 tablet by mouth daily at bedtime. Authorizing Provider: MELO TIPTON PA-C New Rx required by [email or web address] to fill as a 90 day supply, unable to continue further refills on prior Rx from 07/04/24 Prescription Refill: Requested by: patient's son: Sujatha Please E-Scribe Caller Contact Number: [phone] Pharmacy Name: [email or web address] Pharmacy Number: [phone] Generic/ brand: generic 30 or 90 day supply requested: 90 day with refills. Last appointment: 07/04/2024 Next Appointment: 01/16/[address] Marlyn Evans [id number] [facility] [id number] documented in this encounter [facility] 10-08-2024 Telephone encounter Note 10 day Bridge supply Request to local pharmacy. New Rx needed for 90 day fill with Mail Order Pharmacy (routed today as well). Patient will be out of medication before mail order delivery arrives Prescription Refill: Requested by: patient's son: Sujatha Please E-Scribe Caller Contact Number: [phone] Pharmacy Name: [facility] [place], [place] Pharmacy Number: [id number] Generic/ brand: generic 30 or 90 day supply requested: 10 day Bridge Supply Last appointment: 07/04/2024 Next Appointment: 01/16/[address] Marlyn Evans [id number] [facility] [address] [facility] 10-08-2024 Telephone encounter Note New Rx required by [facility] to fill as a 90 day supply, unable to continue further refills on prior Rx from 07/04/24 Prescription Refill: Requested by: patient's son: Sujatha Cruz Caller Contact Number: [phone] Pharmacy Name: [email or web address] Pharmacy Number: [phone] Generic/ brand: generic 30 or 90 day supply requested: 90 day with refills. Last appointment: 07/04/2024 Next Appointment: 01/16/[address] Marlyn Evans [id number] [facility] [address] [facility] 08-01-2024 Telephone encounter Note Called Dr Matson's office - ophthalmology [phone] - she is seeing him on 08/14/2023 - asked that after she sees if they can fax stuff to us. They have our fax # . Karli Cox RN [facility] 08-01-[address] Matson's office - ophthalmology [phone] - she is seeing him on 08/14/2023 - asked that after she sees if they can fax stuff to us. They have our fax # . Karli Cox RN documented in this encounter [facility] 08-01-2024 Instructions Tracy Barcenas MD - 08/01/2024 12:29 PM EST Images from the original note were not included. You have a small aneurysm in your right carotid artery in your brain, it's about 5 mm in size. We will continue monitoring it, at least with an MRI in a year. (We will coordinate with Dr Jeronimo for timing.) We will see each other back in about a year. Brain Aneurysm The Basics Written by the doctors and editors at [facility] What is a brain aneurysm? -- A brain aneurysm is a bulge or ballooning in the wall of a blood vessel in the brain (figure 1). A small aneurysm often causes no symptoms. But if it grows, an aneurysm can press on nerves inside your brain, causing pain and other symptoms. It can also leak blood or burst, causing a sudden, severe headache. A burst aneurysm is a very serious, life-threatening emergency that needs to be treated right away. It leads to a bleeding (hemorrhagic) stroke. Stroke is the term doctors use when a part of the brain is damaged because of a problem with blood flow. The stroke that happens after a brain aneurysm bursts is called a subarachnoid hemorrhage. What are the symptoms of a brain aneurysm? -- Most small brain aneurysms cause no symptoms and are found during an imaging test (which a doctor does to look at pictures of a person's brain). For example, a person might get an imaging test because a family member had an aneurysm, or for an unrelated reason. But a large aneurysm can cause symptoms that include: A bad headache Pain in the face Blurry or double vision If the aneurysm bursts, symptoms can include: A sudden, severe headache - People often say the headache is the worst they have ever had. A stiff neck Nausea and vomiting Passing out Are there tests for a brain aneurysm? -- Yes. If you have symptoms of a brain aneurysm, or if you are at risk of having one, your doctor might do several different tests, including: Imaging tests - These tests include a CT scan and an MRI. Both show pictures of your brain. During these tests, you might also get an injection of a dye that makes it easier for doctors to see blood flow in the brain. Lumbar puncture (sometimes called a spinal tap) - During this procedure, a doctor puts a needle into your lower back and takes out a small sample of spinal fluid. Spinal fluid is the fluid that surrounds the brain and spinal cord. If this fluid has more red blood cells than usual, you could have a subarachnoid hemorrhage. Cerebral angiogram - For this test, your doctor puts a thin, plastic tube into a large blood vessel, usually near the top of your thigh. Then they will advance the tube through your blood vessels past your heart to your brain. Your doctor then injects dye that shows up on an X-ray. This lets the doctor see the blood vessels in your brain and find the aneurysm. How is a brain aneurysm treated? -- There are 2 main ways to treat a brain aneurysm: Endovascular coiling - The first part of this treatment is like a cerebral angiogram (see above). But instead of injecting dye into the tube, your doctor advances a soft wire up through your blood vessels into the aneurysm. The wire coils up inside the aneurysm and seals it off from the blood vessel. Surgical clipping - In this surgery, your doctor puts a tiny metal clip on the base of the aneurysm to stop the blood flow to it. If your aneurysm is leaking or bursts, your doctor will do one of these treatments right away. If it has not burst, you might not be treated. The decision depends on the size of the aneurysm, your age, and whether you have other health problems. Whether or not your aneurysm is treated, your doctor will likely do more imaging tests over time. This is to make sure the aneurysm isn't growing or coming back, and that new aneurysms aren't forming. Are there things that make people more likely to have a brain aneurysm? -- Yes. Having a parent, brother, or sister who had an aneurysm makes you more likely to have one. People with certain medical conditions also have a higher risk of aneurysm than other people. Other things that can raise your chances include: Having high blood pressure Smoking cigarettes Drinking too much alcohol Using illegal drugs, such as cocaine or amphetamines Avoiding these things might help lower your chance of getting an aneurysm. All topics are updated as new evidence becomes available and our peer review process is complete. This topic retrieved from [employer] on: November 08, 2021. Topic 18096 Version 8.0 Release: 30.2.2 - C30.121 2021 [employer] and/or its affiliates. All rights reserved. A brain aneurysm is a swollen bulge or ballooning in the wall of a blood vessel in the brain. Consumer Information Use and Disclaimer This generalized information is a limited summary of diagnosis, treatment, and/or medication information. It is not meant to be comprehensive and should be used as a tool to help the user understand and/or assess potential diagnostic and treatment options. It does NOT include all information about conditions, treatments, medications, side effects, or risks that may apply to a specific patient. It is not intended to be medical advice or a substitute for the medical advice, diagnosis, or treatment of a health care provider based on the health care provider's examination and assessment of a patient's specific and unique circumstances. Patients must speak with a health care provider for complete information about their health, medical questions, and treatment options, including any risks or benefits regarding use of medications. This information does not endorse any treatments or medications as safe, effective, or approved for treating a specific patient. [employer] and its affiliates disclaim any warranty or liability relating to this information or the use thereof.The use of this information is governed by the Terms of Use, available at https://www.[employer].com/en/k now/wxziyiss-rfdrqaefaddae-dmqrd 2021 [employer] and its affiliates and/or licensors. All rights reserved. Call 911 or get to the nearest emergency room as soon as possible if you have these symptoms. documented in this encounter [facility] 08-01-2024 History of Present illness Narrative [facility] Initial Visit Reshma Evans [facility]#: [id number] Date of Service: 08/01/2024 Primary Care Provider: Zoë Kaplan NP, [employer]DOOR ADVENTURE INSTRUCTOR The patient was referred by Zoë Kaplan CNP for opinion regarding a 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 I will provide a written report of my findings to the referring through letter, e communication, or epic. OUTPATIENT CONSULTATION Reason for Visit: R ICA 5 mm intracranial aneurysm Handedness: right-handed Ms Evans is an 84 year old woman with multiple vascular risk factors, including hypertension, hyperlipidemia, DM and KIMBERLY. History also notable for left frontal craniotomy for meningioma resection; WHO grade I, in 2010; traumatic left frontal SDH in 02/2024; left pterional craniotomy for resection of sphenoid wing meningioma and decompression of the optic canal and lateral orbit in 04/2024. The meningioma was again WHO grade I. 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 Aneurysm risk factors: Family History: Subarachnoid hemorrhage: No Aneurysms: no Stroke: No Vascular malformations: No Other neurologic diseases: No Personal history: Hypertension: yes Coronary artery disease: no Diabetes: yes Dyslipidemia: yes Tobacco use: no Recreational drug use: no Stroke: no Previously ruptured intracranial aneurysm: no Past Medical History: ACTIVE PROBLEM LIST Benign Neoplasm of Cerebral Meninges (Hcc) Sdh (Subdural Hematoma) (Hcc) Trauma Fall Periorbital Hematoma of Left Eye Htn (Hypertension) Hyperlipidemia Tbi (Traumatic Brain Injury) (Hcc) Benign Meningioma (Hcc) Pre-Op Examination Type 2 Diabetes Mellitus Without Complication, Without Long-Term Current Use of Insulin (Hcc) Kimberly (Obstructive Sleep Apnea) Meningioma (Hcc) Aneurysm of Anterior Communicating Artery Aphasia Provoked Seizures (Hcc) PAST SURGICAL HISTORY Procedure Laterality Date ARTHRP KNE CONDYLE&PLATU MEDIAL&LAT COMPARTMENTS 07/10/1979 right BRAIN SURGERY HX 04/26/2024 Left pterional craniotomy PAST SURGICAL HISTORY OF Bilateral total knees RECONSTRUCT CLEFT PALATE Infancy RECONSTRUCTION ROTATOR CUFF AVULSION CHRONIC 07/10/2007 right REPAIR CLEFT LIP Infancy REVISE MEDIAN N/CARPAL TUNNEL SURG Allergies: Patient has no known allergies. Medications: Current Outpatient Medications Medication Sig cyanocobalamin, vitamin B-12, (VITAMIN B-12 ORAL) Take by mouth once daily. levETIRAcetam (KEPPRA) 750 mg tablet Take 2 tablets by mouth two times a day. primidone (MYSOLINE) 50 mg tablet Take 1 tablet by mouth daily at bedtime. acetaminophen (TYLENOL) 500 mg tablet 2 tablets by ORAL/FEEDING TUBE route every 6 hours. fluorometholone (FML LIQUID FILM) 0.1 % ophthalmic suspension Use 1 Drop in the left eye two times a day. multivitamin/iron/folic acid (CENTRUM ORAL) Take by mouth. gabapentin (NEURONTIN) 100 mg capsule Take 100 mg by mouth two times a day. propranolol (INDERAL) 10 mg tablet Take 15 mg by mouth two times a day. Cunningham-3 Fatty Acids-Vitamin E (FISH OIL) 1,000 mg cap Take 1 capsule by mouth. Cholecalciferol, Vitamin D3, (VITAMIN D) 1,000 unit ORAL Cap Take one(1) tablet daily. ascorbic acid (VITAMIN C) 500 mg ORAL tablet Take one(1) tablet daily. rosuvastatin (CRESTOR) 10 mg tablet Take 1 tablet by mouth once daily. No current facility-administered medications for this visit. Social History Tobacco Use Smoking status: Never Passive exposure: Never Smokeless tobacco: Never Vaping Use Vaping status: Never Used Substance Use Topics Alcohol use: Not Currently Comment: occasional/social Drug use: No Review of Systems ROS negative unless otherwise noted in HPI Patient Entered Questionnaires PROMIS/NeuroQoL Score Percentiles Depression Screening: PHYSICAL EXAMINATION BP 162/93 (BP Site: Left Arm, BP Position: Sitting, BP Cuff Size: Large Adult) Pulse 60 Resp 16 Wt 82.4 kg (181 lb 10.5 oz) SpO2 98% BMI 29.32 kg/m General: The patient was well-groomed, appeared to be of stated age, and was in no acute distress. Cardiovascular: Regular heart rate and rhythm. Radial pulses normal. Respiratory: Normal breaths and breathing effort. No apparent dyspnea on exam. Head and neck: Atraumatic and normocephalic. Normal and symmetric cervical range of motion. Integuments: No hematoma or ecchymoses. Neurological exam: - Awake, alert, aware of events. Oriented to month/ year; self; place. Provided own history. - Language normal in fluency, conversational comprehension. No paraphasias. - Normal visual pandya OU to confrontation. ZOLTAN. Extraocular movements full, conjugate, and with normal accomodation and no nystagmus or drift. - Facial movements normal. Normal speech; no dysarthria. Normal and symmetric palate rise. Normal head turn and sternocleidomastoid activation. Midline tongue protrusion. - Per body habitus, normal tone, bulk and power in bilateral upper and lower extremities. No pronator drift. No adventitious movements. - Normal primary sensory modalities (proprioception, touch). No spatial inattention or extinction. - Normal truncal and appendicular coordination. - Normal stance and gait RESULTS IMAGING I have independently reviewed and interpreted the following imaging studies and laboratory test results. CT brain (04/27/2024) CTA head & neck (04/27/2024) Postoperative changes status post left middle cranial fossa/frontal pole extra-axial mass resection with interval improvement of pneumocephalus but scattered areas of interval worsening of blood products/hemorrhage within the resection tract as discussed above. 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 Image 313 series 5. No large vessel occlusion or severe short segment stenosis of the proximal shawnee of Ramírez. No flow-limiting stenosis on CTA neck. MRI brain wo/w con (08/01/2024) Postop changes following decompression of the left sphenoid intraosseous meningioma since 04/26/2024 with stable left proptosis and no significant residual mass effect on the underlying left frontal and temporal lobes. Stable small right anterior clinoid process meningioma. Labs Glucose (mg/dL) Date Value 05/03/2024 91 05/10/2013 128 Potassium (mmol/L) Date Value 05/03/2024 3.9 05/10/2013 4.0 Sodium (mmol/L) Date Value 05/03/2024 133 05/10/2013 137 Chloride (mmol/L) Date Value 05/03/2024 98 05/10/2013 99 CO2 (mmol/L) Date Value 05/03/2024 27 05/10/2013 28 Creatinine (mg/dL) Date Value 05/03/2024 0.85 05/10/2013 0.83 Creatinine (POCT) (mg/dL) Date Value 08/05/2013 1.01 BUN (mg/dL) Date Value 05/03/2024 23 05/10/2013 18 Anion Gap (mmol/L) Date Value 05/03/2024 8 05/10/2013 14 Calcium (mg/dL) Date Value 05/10/2013 9.7 Calcium, Total (mg/dL) Date Value 05/03/2024 9.5 Protein, Total (g/dL) Date Value 04/18/2024 7.4 Albumin (g/dL) Date Value 04/18/2024 4.3 Bilirubin, Total (mg/dL) Date Value 04/18/2024 0.3 Alkaline Phosphatase (U/L) Date Value 04/18/2024 59 AST (U/L) Date Value 04/18/2024 18 ALT (U/L) Date Value 04/18/2024 10 IMPRESSION 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 The natural history of incidental brain aneurysms was discussed with the patient and her family. As follows: - An aneurysm's hemorrhage risk is related to individual and aneurysm characteristic. - Her modifiable risk factors include hypertension, which is not optimized. - Considering the aneurysm's maximal diameter at 5 mm, it is associated with an estimated 5-year risk of rupture of up to 2% - In case of rupture, subarachnoid hemorrhage has potentially serious consequences, including , neurologic morbidity, and residential disability. The most important intervention is the elimination of all modifiable risk factors. In parallel with optimization of risk factors, there are various management options: 1. Routine monitoring with serial follow-up imaging. 2. Endovascular embolization, via exclusion of the aneurysm with placement of a flow-diverting stent. 3. Open microsurgical clipping, which we typically do not advise in her age range. Considering the aneurysm's natural history and the patient's overall health and comorbidities, I recommend serial monitoring, alongside her meningioma monitoring MRI's. The patient would like to proceed with this plan. We will obtain a follow-up MR angiogram without contrast in 1 year. We have reviewed the signs and symptoms of subarachnoid hemorrhage and the importance of immediate medical attention if they occur. PLAN MRA brain wo contrast in 1 year Return to clinic after MRA SIGNATURE Tracy Barcenas MD Staff, Neuroendovascular Intervention documented in this encounter [facility] 08-01-2024 Note HNO ID: [id number] Author: TRACY BARCENAS MD Service: ? Author Type: Physician Type: Progress Notes Filed: 08/27/2024 23:24 Note Text: [facility] Initial Visit Reshma Evans [facility]#: [id number] Date of Service: 08/01/2024 Primary Care Provider: Zoë Kaplan NP, [employer]CTOR The patient was referred by Zoë Kaplan CNP for opinion regarding a 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 I will provide a written report of my findings to the referring through letter, e communication, or epic. OUTPATIENT CONSULTATION Reason for Visit: R ICA 5 mm intracranial aneurysm Handedness: right-handed Ms Evans is an 84 year old woman with multiple vascular risk factors, including hypertension, hyperlipidemia, DM and KIMBERLY. History also notable for left frontal craniotomy for meningioma resection; WHO grade I, in 2010; traumatic left frontal SDH in 02/2024; left pterional craniotomy for resection of sphenoid wing meningioma and decompression of the optic canal and lateral orbit in 04/2024. The meningioma was again WHO grade I. 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 Aneurysm risk factors: Family History: Subarachnoid hemorrhage: No Aneurysms: no Stroke: No Vascular malformations: No Other neurologic diseases: No Personal history: Hypertension: yes Coronary artery disease: no Diabetes: yes Dyslipidemia: yes Tobacco use: no Recreational drug use: no Stroke: no Previously ruptured intracranial aneurysm: no Past Medical History: ACTIVE PROBLEM LIST Benign Neoplasm of Cerebral Meninges (Hcc) Sdh (Subdural Hematoma) (Hcc) Trauma Fall Periorbital Hematoma of Left Eye Htn (Hypertension) Hyperlipidemia Tbi (Traumatic Brain Injury) (Hcc) Benign Meningioma (Hcc) Pre-Op Examination Type 2 Diabetes Mellitus Without Complication, Without Long-Term Current Use of Insulin (Hcc) Kimberly (Obstructive Sleep Apnea) Meningioma (Hcc) Aneurysm of Anterior Communicating Artery Aphasia Provoked Seizures (Hcc) PAST SURGICAL HISTORY Procedure Laterality Date ARTHRP KNE CONDYLEANDPLATU MEDIALANDLAT COMPARTMENTS 07/10/1979 right BRAIN SURGERY HX 04/26/2024 Left pterional craniotomy PAST SURGICAL HISTORY OF Bilateral total knees RECONSTRUCT CLEFT PALATE Infancy RECONSTRUCTION ROTATOR CUFF AVULSION CHRONIC 07/10/2007 right REPAIR CLEFT LIP Infancy REVISE MEDIAN N/CARPAL TUNNEL SURG Allergies: Patient has no known allergies. Medications: Current Outpatient Medications Medication Sig cyanocobalamin, vitamin B-12, (VITAMIN B-12 ORAL) Take by mouth once daily. levETIRAcetam (KEPPRA) 750 mg tablet Take 2 tablets by mouth two times a day. primidone (MYSOLINE) 50 mg tablet Take 1 tablet by mouth daily at bedtime. acetaminophen (TYLENOL) 500 mg tablet 2 tablets by ORAL/FEEDING TUBE route every 6 hours. fluorometholone (FML LIQUID FILM) 0.1 % ophthalmic suspension Use 1 Drop in the left eye two times a day. multivitamin/iron/folic acid (CENTRUM ORAL) Take by mouth. gabapentin (NEURONTIN) 100 mg capsule Take 100 mg by mouth two times a day. propranolol (INDERAL) 10 mg tablet Take 15 mg by mouth two times a day. Cunningham-3 Fatty Acids-Vitamin E (FISH OIL) 1,000 mg cap Take 1 capsule by mouth. Cholecalciferol, Vitamin D3, (VITAMIN D) 1,000 unit ORAL Cap Take one(1) tablet daily. ascorbic acid (VITAMIN C) 500 mg ORAL tablet Take one(1) tablet daily. rosuvastatin (CRESTOR) 10 mg tablet Take 1 tablet by mouth once daily. No current facility-administered medications for this visit. Social History Tobacco Use Smoking status: Never Passive exposure: Never Smokeless tobacco: Never Vaping Use Vaping status: Never Used Substance Use Topics Alcohol use: Not Currently Comment: occasional/social Drug use: No Review of Systems ROS negative unless otherwise noted in HPI Patient Entered Questionnaires PROMIS/NeuroQoL Score Percentiles Depression Screening: PHYSICAL EXAMINATION BP 162/93 (BP Site: Left Arm, BP Position: Sitting, BP Cuff Size: Large Adult) Pulse 60 Resp 16 Wt 82.4 kg (181 lb 10.5 oz) SpO2 98% BMI 29.32 kg/m? General: The patient was well-groomed, appeared to be of stated age, and was in no acute distress. Cardiovascular: Regular heart rate and rhythm. Radial pulses normal. Respiratory: Normal breaths and breathing effort. No apparent dyspnea on exam. Head and neck: Atraumatic and normocephalic. Normal and symmetric cervical range of motion. Integuments: No hematoma or ecchymoses. Neurological exam: - Awake, alert, aware of events. Oriented to month/ year; self; place. Provided own history. - Language normal in fluency, conversational comprehension. No paraphasias. - Normal visual pandya OU to confrontation. ZOLTAN. Extraocular movements full, conjugate, and with normal accomodation (more content not included)... [facility] 08-01-2024 History of Present illness Narrative NEUROSURGERY FOLLOW UP OFFICE NOTE Neymar Jeronimo MD Date of visit: August 01, 2024 Patient Name: Ms.Miriam Ronit Evans Date of : 1940 Current Age: [age] year old Sex: female MRN/E# [id number] Last Office Visit: 05/20/2024 CLINICAL SUMMARY: * 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 Nicola Cruz - [facility] [phone] Dr. Cline - post op seizure, on Keppra 1500 mg bid SUBJECTIVE: History of Present Illness. Reshma Evans is a 84 year old female presenting . PMH including HTN, HLD, KIMBERLY, DM. Patient has a past surgical history of left frontal craniotomy for meningioma resection, exenteration of frontal sinus 09/24/[address] Lee Mckeon [facility]. 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 She was seen at [facility] on 02/13/2024 after a fall after stepping off the curb. She struck the left side of her face. CT brain demonstrated a small left frontal SDH. Repeat imaging was stable. She was recommended to keep her outpatient follow up appointment. She was seen on 02/19/2024 where she had been doing well since fall. She initially had MRIs ordered from Dr. Cruz with opthalmology due to the left eye exophthalmus. She noted that this had started about 2 months prior. She stated that when she looked out of the left eye that vision was a bit fuzzy. 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 Left sphenoid wing meningioma with most of its mass located away from the optic nerve. Small right anterior clinoid meningioma noted that was new from MRI in 2013. Since optic nerve was not well visualized, she was recommended to have MRI pituitary to better assess. Her CT brain showed improvement in the left lateral subdural collection, more chronic in appearance. She was seen on 04/04/2024 where she followed up with MRI imaging - vision was the same, fuzziness in the left eye. She had intermittent headaches, resolved with tylenol. Her MRI brain showed on FIESTA sequences there appears to be significant compression of the optic nerve within the optic canal secondary to bone expansion of the intraosseous component of the tumor. She underwent Left pterional craniotomy for resection of sphenoid wing meningioma, Decompression of the optic canal and lateral orbit on 04/26/2024. She had her 2 week post operative visit on 05/20/2024 where she had been doing well overall. She was discharged from [facility] today. Her incision was healing well and sutures were removed at the rehab facility. She denied any pain but sometimes had some pressure on the left side of her head since she sleeps on that side. She noticed her vision out of the left eye feels a little more clear with up close things but far away was still fuzzy. She had an upcoming appointment with Dr Cline 07/04/2024. Her optic canal was well compressed. Pathology showed Grade 1 meningioma with Ki67 of 5 %. She was recommended to follow up at 3 months post operative with MRI. She was recommended to see Dr. Barcenas for incidental rt ICA aneurysm. Today she reports that she has been doing well. She does still feel fatigued and sometimes feels like she doesn't want to do things that she used to do. She did follow up with Dr Cline. She is currently on Keppra still. She still has the left side head pressure some days. She feels like her left eye will sometimes feel swollen since she sleeps on her left. Keppra 1500mg bid PAIN EVALUATION 08/01/2024 1056 Pain Level: 5 Pain Location: Eye-Left Duration Units: Months Frequency: Continuous Intervention/Comfort measure: Medication PAST MEDICAL HISTORY Diagnosis Date Benign meningioma (HCC) BPPV (benign paroxysmal positional vertigo) Brain tumor (HCC) Diabetes (HCC) Epilepsy (HCC) HTN (hypertension) 02/14/2024 Hyperlipidemia 02/14/2024 Obesity Obstructive sleep apnea PONV (postoperative nausea and vomiting) SDH (subdural hematoma) (HCC) 02/13/2024 Sleep apnea Traumatic brain injury ([facility]) PAST SURGICAL HISTORY Procedure Laterality Date ARTHRP KNE CONDYLE&PLATU MEDIAL&LAT COMPARTMENTS 07/10/1979 right BRAIN SURGERY HX 04/26/2024 Left pterional craniotomy PAST SURGICAL HISTORY OF Bilateral total knees RECONSTRUCT CLEFT PALATE Infancy RECONSTRUCTION ROTATOR CUFF AVULSION CHRONIC 07/10/2007 right REPAIR CLEFT LIP Infancy REVISE MEDIAN N/CARPAL TUNNEL SURG FAMILY HISTORY Problem Relation Age of Onset other (esophageal cancer [Other]) Brother 62 other (leukemia [Other]) Sister 49 Tremor No Family History Seizures No Family History ALLERGIES No Known Allergies Current Outpatient Medications Medication Sig Dispense Refill rosuvastatin (CRESTOR) 10 mg tablet Take 1 tablet by mouth once daily. cyanocobalamin, vitamin B-12, (VITAMIN B-12 ORAL) Take by mouth once daily. levETIRAcetam (KEPPRA) 750 mg tablet Take 2 tablets by mouth two times a day. 360 tablet 3 primidone (MYSOLINE) 50 mg tablet Take 1 tablet by mouth daily at bedtime. 30 tablet 5 acetaminophen (TYLENOL) 500 mg tablet 2 tablets by ORAL/FEEDING TUBE route every 6 hours. fluorometholone (FML LIQUID FILM) 0.1 % ophthalmic suspension Use 1 Drop in the left eye two times a day. multivitamin/iron/folic acid (CENTRUM ORAL) Take by mouth. gabapentin (NEURONTIN) 100 mg capsule Take 100 mg by mouth two times a day. propranolol (INDERAL) 10 mg tablet Take 15 mg by mouth two times a day. Cunningham-3 Fatty Acids-Vitamin E (FISH OIL) 1,000 mg cap Take 1 capsule by mouth. Cholecalciferol, Vitamin D3, (VITAMIN D) 1,000 unit ORAL Cap Take one(1) tablet daily. ascorbic acid (VITAMIN C) 500 mg ORAL tablet Take one(1) tablet daily. No current facility-administered medications for this visit. OBJECTIVE: BP 162/93 Pulse 60 Resp 16 Wt 181 lb 10.5 oz (82.4kg) SpO2 98% PHYSICAL EXAM A&Ox3, speech fluent SUJIT 3 mm EOM are full Left eye proptosis and slight ptosis, unchanged from prio Face symmetric No pronator drift Strength grossly intact in UEs and LEs Data Review IMAGING STUDIES: MRI brain obtained on 08/01/2024 demonstrates: Final read pending Images independently reviewed The following portions of the patient's history were reviewed, confirmed, updated as necessary: allergies, current medications, past family history, past medical history, past social history, past surgical history, problem list, HPI and ROS obtained by others. The clinical and radiographic findings as well as the risks, benefits, and alternatives of treatment have been reviewed in detail with the patient. ASSESSMENT/PLAN 1. Intracranial meningioma (HCC) Doing well, most of her concerns relate to tearing of left eye. She is seeing Dr Matson from ophthalmology on 08/14 Reviewed MRI brain - radiology report is pending. Stable right ant clinoid meningioma Postoperative changes on the left with no evidence of nodular tumor recurrence. Extensive dural thickening, postoperative and tumor involvement. Small post operative epidural fluid collection above the orbit. No significant mass effect - encouraged f/up with ophthalmology to reassess her vision - will continue to monitor with repeat MRI brain in 3 mo - consider GKRS to right ant clinoid meningioma - f/up with imaging to review results to review results - MRI BRAIN WO/W IVCON; Future - MRI PITUITARY WO/W IVCON; Future Encouraged patient to contact our office should there be any further questions, concerns, or change in symptoms. Patient expressed understanding and is in agreement with plan. Some elements may have been copied from a previous note and have been updated/reviewed where appropriate. All portions reflect current medical decision making from today. Neymar Jeronimo MD I spent a total of 30 minutes on the date of the service which included preparing to see the patient, [id number] patient care, completing clinical documentation, obtaining and/or reviewing separately obtained history, performing a medically appropriate examination, counseling and educating the patient/family/caregiver, ordering medications, tests, or procedures, independently interpreting results (not separately reported), and communicating results to the patient/family/caregiver. documented in this encounter [facility] 08-01-2024 Note HNO ID: [id number] Author: NEYMAR JERONIMO MD Service: ? Author Type: Physician Type: Progress Notes Filed: 08/02/2024 10:40 Note Text: NEUROSURGERY FOLLOW UP OFFICE NOTE Neymar Jeronimo MD Date of visit: August 01, 2024 Patient Name: Ms.Miriam Ronit Evans Date of : 1940 Current Age: [age] year old Sex: female MRN/E# [id number] Last Office Visit: 05/20/2024 CLINICAL SUMMARY: * 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 Nicola Cruz - [facility] [phone] Dr. Cline - post op seizure, on Keppra 1500 mg bid SUBJECTIVE: History of Present Illness. Reshma Evans is a 84 year old female presenting . PMH including HTN, HLD, KIMBERLY, DM. Patient has a past surgical history of left frontal craniotomy for meningioma resection, exenteration of frontal sinus 09/24/[address] Lee Mckeon [facility]. 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 She was seen at [facility] on 02/13/2024 after a fall after stepping off the curb. She struck the left side of her face. CT brain demonstrated a small left frontal SDH. Repeat imaging was stable. She was recommended to keep her outpatient follow up appointment. She was seen on 02/19/2024 where she had been doing well since fall. She initially had MRIs ordered from Dr. Cruz with opthalmology due to the left eye exophthalmus. She noted that this had started about 2 months prior. She stated that when she looked out of the left eye that vision was a bit fuzzy. 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 Left sphenoid wing meningioma with most of its mass located away from the optic nerve. Small right anterior clinoid meningioma noted that was new from MRI in 2013. Since optic nerve was not well visualized, she was recommended to have MRI pituitary to better assess. Her CT brain showed improvement in the left lateral subdural collection, more chronic in appearance. She was seen on 04/04/2024 where she followed up with MRI imaging - vision was the same, fuzziness in the left eye. She had intermittent headaches, resolved with tylenol. Her MRI brain showed on FIESTA sequences there appears to be significant compression of the optic nerve within the optic canal secondary to bone expansion of the intraosseous component of the tumor. She underwent Left pterional craniotomy for resection of sphenoid wing meningioma, Decompression of the optic canal and lateral orbit on 04/26/2024. She had her 2 week post operative visit on 05/20/2024 where she had been doing well overall. She was discharged from [facility] today. Her incision was healing well and sutures were removed at the rehab facility. She denied any pain but sometimes had some pressure on the left side of her head since she sleeps on that side. She noticed her vision out of the left eye feels a little more clear with up close things but far away was still fuzzy. She had an upcoming appointment with Dr Cline 07/04/2024. Her optic canal was well compressed. Pathology showed Grade 1 meningioma with Ki67 of 5 %. She was recommended to follow up at 3 months post operative with MRI. She was recommended to see Dr. Barcenas for incidental rt ICA aneurysm. Today she reports that she has been doing well. She does still feel fatigued and sometimes feels like she doesn't want to do things that she used to do. She did follow up with Dr Cline. She is currently on Keppra still. She still has the left side head pressure some days. She feels like her left eye will sometimes feel swollen since she sleeps on her left. Keppra 1500mg bid PAIN EVALUATION 08/01/2024 1056 Pain Level: 5 Pain Location: Eye-Left Duration Units: Months Frequency: Continuous Intervention/Comfort measure: Medication PAST MEDICAL HISTORY Diagnosis Date Benign meningioma (HCC) BPPV (benign paroxysmal positional vertigo) Brain tumor (HCC) Diabetes (HCC) Epilepsy (HCC) HTN (hypertension) 02/14/2024 Hyperlipidemia 02/14/2024 Obesity Obstructive sleep apnea PONV (postoperative nausea and vomiting) SDH (subdural hematoma) (HCC) 02/13/2024 Sleep apnea Traumatic brain injury (HCC) PAST SURGICAL HISTORY Procedure Laterality Date ARTHRP DEEPAK LYNCH (more content not included)... [facility] 08-01-2024 History of Present illness Narrative Radiology Service Progress Note DATE OF SERVICE: August 01, 2024 TIME: 10:11 AM PATIENT IDENTITY VERIFICATION COMPLETED USING TWO (2) STANDARD IDENTIFIERS: Name and Date of confirmed by patient verbally. FALL SCREENING: Has the patient had 2 falls in the last year or 1 fall with injury or currently using an Ambulatory Assistive Device (Walker, Cane, Wheelchair, Crutches, etc.)? No PATIENT GENDER DATA: PATIENT RELEVANT IMPLANT DATA REVIEWED: Not Applicable PATIENT PRESENTS WITH AN IMPLANTABLE OR ATTACHED ASSISTED LIVING COORDINATOR: No ALLERGIES: Reviewed and unchanged CONTRAST ALLERGY: NO. EXAM: MRI - CONTRAST TYPE: GROUP II PERIPHERAL IV DATA: Ambulatory: A peripheral IV was started in the Left antecubital site with a Butterfly: 25 gauge. RADIOLOGY DEPARTMENT: MR; Exam(s) Completed: Head: Routine Brain SIGNATURE: NORBERTO Roque) PATIENT NAME: Reshma Evans DATE: August 01, 2024 TIME: 10:11 AM documented in this encounter [facility] 08-01-2024 Note HNO ID: [id number] Author: KAYODE WALL RT(R) Service: ? Author Type: Technologist Type: Progress Notes Filed: 08/01/2024 10:11 Note Text: Radiology Service Progress Note DATE OF SERVICE: August 01, 2024 TIME: 10:11 AM PATIENT IDENTITY VERIFICATION COMPLETED USING TWO (2) STANDARD IDENTIFIERS: Name and Date of confirmed by patient verbally. FALL SCREENING: Has the patient had 2 falls in the last year or 1 fall with injury or currently using an Ambulatory Assistive Device (Walker, Cane, Wheelchair, Crutches, etc.)? No PATIENT GENDER DATA: PATIENT RELEVANT IMPLANT DATA REVIEWED: Not Applicable PATIENT PRESENTS WITH AN IMPLANTABLE OR ATTACHED ASSISTED LIVING COORDINATOR: No ALLERGIES: Reviewed and unchanged CONTRAST ALLERGY: NO. EXAM: MRI - CONTRAST TYPE: GROUP II PERIPHERAL IV DATA: Ambulatory: A peripheral IV was started in the Left antecubital site with a Butterfly: 25 gauge. RADIOLOGY DEPARTMENT: MR; Exam(s) Completed: Head: Routine Brain SIGNATURE: RT Mya(R) PATIENT NAME: Reshma Evans DATE: August 01, 2024 TIME: 10:11 AM [facility] 07-25-2024 Telephone encounter Note Noted. Thank you. [employer] 07-25-2024 Miscellaneous Notes Noted. Thank you. Spoke to Reshma, she is not taking Simvastatin, aware now that Rosuvastatin replaced it. Offered to schedule NV to have her bring in all of her meds to go over them but she declined. She thinks she is all set now. Left a message to return call. Can you please attempt to call her tomorrow? Thank you! Blood pressure and heart rate are good. Please make sure she is not taking both Simvastatin and Rosuvastatin. The Rosuvastatin was to be taken in place of her Simvastatin for her cholesterol. Reshma was in today for blood work, but she also wanted to get her blood pressure checked as she thought that she was on some blood pressure medication. She had thought her rosuvastatin was a bp medication. Her reading today was 126/81 pulse 64. Please advise. Thank you! Patient arrived for nurse visit today and was verified by name and . Supervising provider for clinic visit CARLEE Barclay is currently not taking any anti- hypertensive medications Shortness of breath no B/P Reading taken automatic Home Monitoring yes Patient advised if follow up is needed, outreach will occur in 48 hours documented in this encounter [employer] 07-25-2024 Telephone encounter Note Spoke to Reshma, she is not taking Simvastatin, aware now that Rosuvastatin replaced it. Offered to schedule NV to have her bring in all of her meds to go over them but she declined. She thinks she is all set now. [facility] 07-24-2024 Telephone encounter Note Left a message to return call. Can you please attempt to call her tomorrow? Thank you! [facility] 07-24-2024 Telephone encounter Note Blood pressure and heart rate are good. Please make sure she is not taking both Simvastatin and Rosuvastatin. The Rosuvastatin was to be taken in place of her Simvastatin for her cholesterol. [facility] 07-23-2024 Telephone encounter Note Reshma was in today for blood work, but she also wanted to get her blood pressure checked as she thought that she was on some blood pressure medication. She had thought her rosuvastatin was a bp medication. Her reading today was 126/81 pulse 64. Please advise. Thank you! Patient arrived for nurse visit today and was verified by name and . Supervising provider for clinic visit CARLEE Barclay is currently not taking any anti- hypertensive medications Shortness of breath no B/P Reading taken automatic Home Monitoring yes Patient advised if follow up is needed, outreach will occur in [address] [facility] 07-23-2024 History of Present illness Narrative Venipuncture completed by [facility]. Images from the original note were not included. [address] [facility] [address] [facility] [id number] Patient arrived for nurse visit today and was verified by name and . Supervising provider for clinic visit CARLEE Barclay is currently not taking any anti- hypertensive medications Shortness of breath no B/P Reading taken automatic Home Monitoring yes Patient advised if follow up is needed, outreach will occur in 48 hours documented in this encounter [facility] 07-04-2024 Note HNO ID: [id number] Author: GERALD CLINE MD Service: ? Author Type: Physician Type: Progress Notes Filed: 07/04/2024 12:04 Note Text: [facility] Patient Name: Reshma Evans Date of : 1940 ESTABLISHED EPILEPSY CLINIC NOTE 07/04/2024 11:00 AM Reason for Visit: New Patient and Hospital Follow Up Clinical Summary: Ms. Evans is a 83 year old right-handed female seen in [facility]. At today's visit, the patient is accompanied by: son HISTORY OF PRESENT ILLNESS Handedness: right-handed Age of onset: 83 years Seizure History and Evolution 04/30/24 - HPI from inpatient consultation by pr - 83 year old year old female presents with seizures after resection of meningioma. Timeline history: 09/25/2010 - MRI BRAIN W WO - Interval resection of extra-axial enhancing mass lesion located along the medial anterior aspect left frontal lobe. 08/05/2013 - MRI BRAIN W WO - There has been interval development of a small cystic encephalomalacia within the paramedian anterior inferior left frontal lobe in the region of prior meningioma resection. 02/07/24 - MRI BRAIN W WO - Left sphenoid wing mass, likely a meningioma with mild mass effect and mild signal changes of the left temporal lobe. Involvement of the left greater wing of the sphenoid wing with extension into left extraconal orbit as well as extension to the left orbital apex. Due to motion, effect on the optic nerve is poorly assessed. Left exophthalmos is noted. Extensive dural thickening and enhancement is nonspecific, though likely related to mass, either neoplastic (such as meningiomatosis) or reactive. See body of report for additional details. Neurosurgical evaluation is suggested. 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 Chronic parenchymal changes as discussed. 02/13/24-02/14/24 - admission - Patient was evaluated in the ED at [facility] on 02/13/2024 after a ground level fall. As a part of her workup, she would undergo CT imaging of her brain, facial bones, and cervical spine. She also had X-rays completed of her chest, pelvis, both hips, and left knee. These imaging studies would reveal an acute small left frontal subdural hematoma (brain injury/bleed). Due to this injury, she was admitted under the trauma surgery service to the regular nursing floor for further monitoring. Neurosurgery was consulted to manage her brain injury. She would have a repeat CT scan of the brain completed which was found to be stable. Ultimately her injury was treated conservatively with non-operative management. She would not require any medication for seizure prophylaxis. She tolerated a regular diet and worked with physical and occupational therapy. They would recommend home health care at her time of discharge. She was then deemed medically stable for discharge home with home health care by the attending trauma surgeon on 02/14/2024. She will need to follow up with her neurosurgeon on 02/19/2024 for routine follow up care. 04/26/24 - brief op note - Left pterional craniotomy for resection of sphenoid wing meningioma Decompression of the optic canal and lateral orbit 04/27/24 - [facility]INO GREEN - Seen this am. Patient had been confused and had been improved but seen with nurse and then with NSICU TECHNICAL SALES ADVISOR and patient with some ? Delirium and ? Word finding difficulty. Able to answer her name to me, but then when seen with NSICU TECHNICAL SALES ADVISOR she was not. Able to intermittently answer location and month. Not able to now. Perseverates on someone's name but cannot discern. She says no when asked of headaches, nausea. 04/28/24 - Neuro ICU - 04/28: Seizures captured on EEG overnight. Keppra increased. Will call for BEM check later today 04/29/24 - Neuro ICU - 04/29: BEM overnight with no seizures. No acute events overnight. NSGY plan to transfer to floor today. Will monitor EEG through tomorrow am and will d/c if remains negative. 04/26/24 - BEM - Continuous Slow, Generalized, Maximum, Left hemisphere PLEDs, Regional, Left temporal region Background Slow Interictal: Asymmetry, Increased Beta, left frontotemporal Continuous Slow, Generalized, Maximum, left hemisphere PLEDs with Overriding Fast, Regional, left frontotemporal Ictal: EEG Seizure, Regional, left frontotemporal No Clinical Signs Asymmetry, Increased Beta, left frontotemporal Continuous Slow, Generalized, Maximum, left hemisphere Intermittent Rhythmic Slow, Regional, Right fronto-temporal Background Slow Interictal: Asymmetry, Increased Beta, left frontotemporal Continuous Slow, Generalized, Maximum, left hemisphere Background Slow, Last seizure 0104 on 04/28/2024. Pathology is pending. Interval Seizure History 04/26/24 - pathology - A. Left sided brain tumor, biopsy: - Meningioma. B. Left intradural brain tumor, biopsy: - Meningioma, meningotheli (more content not included)... [facility] 07-04-2024 History of Present illness Narrative [facility] Patient Name: Reshma Evans Date of : 1940 ESTABLISHED EPILEPSY CLINIC NOTE 07/04/2024 11:00 AM Reason for Visit: New Patient and Hospital Follow Up Clinical Summary: Ms. Evans is a 83 year old right-handed female seen in [facility]. At today's visit, the patient is accompanied by: son HISTORY OF PRESENT ILLNESS Handedness: right-handed Age of onset: 83 years Seizure History and Evolution 04/30/24 - HPI from inpatient consultation by pr - 83 year old year old female presents with seizures after resection of meningioma. Timeline history: 09/25/2010 - MRI BRAIN W WO - Interval resection of extra-axial enhancing mass lesion located along the medial anterior aspect left frontal lobe. 08/05/2013 - MRI BRAIN W WO - There has been interval development of a small cystic encephalomalacia within the paramedian anterior inferior left frontal lobe in the region of prior meningioma resection. 02/07/24 - MRI BRAIN W WO - Left sphenoid wing mass, likely a meningioma with mild mass effect and mild signal changes of the left temporal lobe. Involvement of the left greater wing of the sphenoid wing with extension into left extraconal orbit as well as extension to the left orbital apex. Due to motion, effect on the optic nerve is poorly assessed. Left exophthalmos is noted. Extensive dural thickening and enhancement is nonspecific, though likely related to mass, either neoplastic (such as meningiomatosis) or reactive. See body of report for additional details. Neurosurgical evaluation is suggested. 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 Chronic parenchymal changes as discussed. 02/13/24-02/14/24 - admission - Patient was evaluated in the ED at [facility] on 02/13/2024 after a ground level fall. As a part of her workup, she would undergo CT imaging of her brain, facial bones, and cervical spine. She also had X-rays completed of her chest, pelvis, both hips, and left knee. These imaging studies would reveal an acute small left frontal subdural hematoma (brain injury/bleed). Due to this injury, she was admitted under the trauma surgery service to the regular nursing floor for further monitoring. Neurosurgery was consulted to manage her brain injury. She would have a repeat CT scan of the brain completed which was found to be stable. Ultimately her injury was treated conservatively with non-operative management. She would not require any medication for seizure prophylaxis. She tolerated a regular diet and worked with physical and occupational therapy. They would recommend home health care at her time of discharge. She was then deemed medically stable for discharge home with home health care by the attending trauma surgeon on 02/14/2024. She will need to follow up with her neurosurgeon on 02/19/2024 for routine follow up care. 04/26/24 - brief op note - Left pterional craniotomy for resection of sphenoid wing meningioma Decompression of the optic canal and lateral orbit 04/27/24 - [facility] NSG - Seen this am. Patient had been confused and had been improved but seen with nurse and then with NSICU TECHNICAL SALES ADVISOR and patient with some ? Delirium and ? Word finding difficulty. Able to answer her name to me, but then when seen with NSICU TECHNICAL SALES ADVISOR she was not. Able to intermittently answer location and month. Not able to now. Perseverates on someone's name but cannot discern. She says no when asked of headaches, nausea. 04/28/24 - Neuro ICU - 04/28: Seizures captured on EEG overnight. Keppra increased. Will call for BEM check later today 04/29/24 - Neuro ICU - 04/29: BEM overnight with no seizures. No acute events overnight. NSGY plan to transfer to floor today. Will monitor EEG through tomorrow am and will d/c if remains negative. 04/26/24 - BEM - Continuous Slow, Generalized, Maximum, Left hemisphere PLEDs, Regional, Left temporal region Background Slow Interictal: Asymmetry, Increased Beta, left frontotemporal Continuous Slow, Generalized, Maximum, left hemisphere PLEDs with Overriding Fast, Regional, left frontotemporal Ictal: EEG Seizure, Regional, left frontotemporal No Clinical Signs Asymmetry, Increased Beta, left frontotemporal Continuous Slow, Generalized, Maximum, left hemisphere Intermittent Rhythmic Slow, Regional, Right fronto-temporal Background Slow Interictal: Asymmetry, Increased Beta, left frontotemporal Continuous Slow, Generalized, Maximum, left hemisphere Background Slow, Last seizure 0104 on 04/28/2024. Pathology is pending. Interval Seizure History 04/26/24 - pathology - A. Left sided brain tumor, biopsy: - Meningioma. B. Left intradural brain tumor, biopsy: - Meningioma, meningothelial type, WHO Grade 1. 04/30/24 - last encounter in the hospital 05/03/24 - discharged 83 year old woman presents for a follow up after hospitalization for elective resection of meningioma. During admission, BEM recorded a subclinical seizure. Keppra was started at 1500 mg BID. She denied any further events. No TB out of sleep. No witnessed events by who lives with her. She denied any change in personality or side effects from the Keppra. She also has a chronic tremor since her 60s. No family history of tremor. The tremor affected both hands early on and then involved voice and head. It calms down at rest and when not anxious. Anxiety and movement will bring it on including eating and drinking or holding objects. She did not notice any improvement with alcohol when she drank in the past. She has been on propranolol for a long time at 40 mg once daily extended release and now takes 15 mg BID with no difference in the tremor. She has not tried any other medications. Total # of Current Anti-seizure Medications: 1 Side Effects to Current Anti-seizure Medications: none Seizure Frequency at First Visit: Longest Seizure-free Interval: Number of seizure types: 1 Hx of generalized tonic-clonic seizures: No Tongue bite: No Urine or Bowel Incontinence: No Triggers: meningioma Postictal Deficits: No Memory complaints: none Status Epilepticus or clusters: No Postictal Agitation: No Significant Injuries from Seizures: none Seizure-related driving accidents: No Driving: No Lives Alone: No ED Visits in Last 3 Months: No Hospitalizations in Last 3 Months: No Highest Level of Education: High school graduate (includes GED) Current Vocation: see history CURRENT OUTPATIENT ANTISEIZURE MEDICATIONS (as of the start of the encounter) gabapentin (NEURONTIN) 100 mg capsule (Taking) levETIRAcetam (KEPPRA) 750 mg tablet Take 2 tablets by mouth two times a day. Prior Anti-seizure Therapies: Trial Adequacy: Max Daily Dose Achieved: Side Effects: Effectiveness: Comments: Gabapentin, other use Levetiracetam None Primidone, other use Comorbidities: Minor: Obesity, Obstructive Sleep Apnea, Hyperlipidemia/Hypercholesterolemi a, Hypertension, Diabetes Type 2, Brain Tumor Episode Description: SEIZURE TYPE 1: Subclinical seizure on BEM Onset: 04/2024 Aura: no Description: EEG Seizure, Regional, left frontotemporal No Clinical Signs Loss of awareness: Duration: Frequency: Last occurred: no April 28 2024 Seizure risk factors: Brain Tumor Yes DI[employer]OND GR[employer]ER Infections No Developmental Delay No Family history of seizures No Febrile Seizure No Complications No Stroke No Traumatic Brain Injury Yes Previous Epilepsy Evaluations 09/25/2010 - MRI BRAIN W WO - Interval resection of extra-axial enhancing mass lesion located along the medial anterior aspect left frontal lobe. 08/05/2013 - MRI BRAIN W WO - There has been interval development of a small cystic encephalomalacia within the paramedian anterior inferior left frontal lobe in the region of prior meningioma resection. 02/07/24 - MRI BRAIN W WO - Left sphenoid wing mass, likely a meningioma with mild mass effect and mild signal changes of the left temporal lobe. Involvement of the left greater wing of the sphenoid wing with extension into left extraconal orbit as well as extension to the left orbital apex. Due to motion, effect on the optic nerve is poorly assessed. Left exophthalmos is noted. Extensive dural thickening and enhancement is nonspecific, though likely related to mass, either neoplastic (such as meningiomatosis) or reactive. See body of report for additional details. Neurosurgical evaluation is suggested. 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 Chronic parenchymal changes as discussed. 02/13/24-02/14/24 - admission - Patient was evaluated in the ED at [facility] on 02/13/2024 after a ground level fall. As a part of her workup, she would undergo CT imaging of her brain, facial bones, and cervical spine. She also had X-rays completed of her chest, pelvis, both hips, and left knee. These imaging studies would reveal an acute small left frontal subdural hematoma (brain injury/bleed). Due to this injury, she was admitted under the trauma surgery service to the regular nursing floor for further monitoring. Neurosurgery was consulted to manage her brain injury. She would have a repeat CT scan of the brain completed which was found to be stable. Ultimately her injury was treated conservatively with non-operative management. She would not require any medication for seizure prophylaxis. She tolerated a regular diet and worked with physical and occupational therapy. They would recommend home health care at her time of discharge. She was then deemed medically stable for discharge home with home health care by the attending trauma surgeon on 02/14/2024. She will need to follow up with her neurosurgeon on 02/19/2024 for routine follow up care. 04/26/24 - brief op note - Left pterional craniotomy for resection of sphenoid wing meningioma Decompression of the optic canal and lateral orbit 04/27/24 - [facility]INO GREEN - Seen this am. Patient had been confused and had been improved but seen with nurse and then with NSICU TECHNICAL SALES ADVISOR and patient with some ? Delirium and ? Word finding difficulty. Able to answer her name to me, but then when seen with NSICU TECHNICAL SALES ADVISOR she was not. Able to intermittently answer location and month. Not able to now. Perseverates on someone's name but cannot discern. She says no when asked of headaches, nausea. 04/28/24 - Neuro ICU - 04/28: Seizures captured on EEG overnight. Keppra increased. Will call for BEM check later today 04/29/24 - Neuro ICU - 04/29: BEM overnight with no seizures. No acute events overnight. NSGY plan to transfer to floor today. Will monitor EEG through tomorrow am and will d/c if remains negative. 04/26/24 - BEM - Continuous Slow, Generalized, Maximum, Left hemisphere PLEDs, Regional, Left temporal region Background Slow Interictal: Asymmetry, Increased Beta, left frontotemporal Continuous Slow, Generalized, Maximum, left hemisphere PLEDs with Overriding Fast, Regional, left frontotemporal Ictal: EEG Seizure, Regional, left frontotemporal No Clinical Signs Asymmetry, Increased Beta, left frontotemporal Continuous Slow, Generalized, Maximum, left hemisphere Intermittent Rhythmic Slow, Regional, Right fronto-temporal Background Slow Interictal: Asymmetry, Increased Beta, left frontotemporal Continuous Slow, Generalized, Maximum, left hemisphere Background Slow, Last seizure 0104 on 04/28/2024. Pathology is pending. Other caregivers: Primary Care Provider: Zoë Kaplan NP, [employer] Current Outpatient Medications Medication Sig rosuvastatin (CRESTOR) 10 mg tablet Take 1 tablet by mouth once daily. cyanocobalamin, vitamin B-12, (VITAMIN B-12 ORAL) Take by mouth once daily. acetaminophen (TYLENOL) 500 mg tablet 2 tablets by ORAL/FEEDING TUBE route every 6 hours. fluorometholone (FML LIQUID FILM) 0.1 % ophthalmic suspension Use 1 Drop in the left eye two times a day. multivitamin/iron/folic acid (CENTRUM ORAL) Take by mouth. gabapentin (NEURONTIN) 100 mg capsule Take 100 mg by mouth two times a day. propranolol (INDERAL) 10 mg tablet Take 15 mg by mouth two times a day. Cunningham-3 Fatty Acids-Vitamin E (FISH OIL) 1,000 mg cap Take 1 capsule by mouth. Cholecalciferol, Vitamin D3, (VITAMIN D) 1,000 unit ORAL Cap Take one(1) tablet daily. ascorbic acid (VITAMIN C) 500 mg ORAL tablet Take one(1) tablet daily. levETIRAcetam (KEPPRA) 750 mg tablet Take 2 tablets by mouth two times a day. primidone (MYSOLINE) 50 mg tablet Take 1 tablet by mouth daily at bedtime. No current facility-administered medications for this visit. ALLERGIES No Known Allergies PAST MEDICAL HISTORY Diagnosis Date Benign meningioma (HCC) BPPV (benign paroxysmal positional vertigo) Brain tumor (HCC) Diabetes (HCC) Epilepsy (HCC) HTN (hypertension) 02/14/2024 Hyperlipidemia 02/14/2024 Obesity Obstructive sleep apnea PONV (postoperative nausea and vomiting) SDH (subdural hematoma) (HCC) 02/13/2024 Sleep apnea Traumatic brain injury (HCC) PAST SURGICAL HISTORY Procedure Laterality Date ARTHRP KNE CONDYLE&PLATU MEDIAL&LAT COMPARTMENTS 07/10/1979 right BRAIN SURGERY HX 04/26/2024 Left pterional craniotomy PAST SURGICAL HISTORY OF Bilateral total knees RECONSTRUCT CLEFT PALATE Infancy RECONSTRUCTION ROTATOR CUFF AVULSION CHRONIC 07/10/2007 right REPAIR CLEFT LIP Infancy REVISE MEDIAN N/CARPAL TUNNEL SURG FAMILY HISTORY Problem Relation Age of Onset other (esophageal cancer [Other]) Brother 62 other (leukemia [Other]) Sister 49 Tremor No Family History Seizures No Family History SOCIAL HISTORY: -Lives in [place], [place] -Patient lives alone? No -Vocation: see history -Education: High school graduate (includes GED) -Cigarette, alcohol, substance use: see history -Functional status: independent in activities of daily living -Patient driving? No Review of Systems All other systems reviewed and are negative. VITAL SIGNS: BP 149/85 Pulse 76 Resp 16 Ht 167.6 cm (5' 6) Wt 77.6 kg (171 lb) BMI 27.60 kg/m Neurological Exam Mental Status Alert, fully oriented, attentive, with normal cognition, memory, and affect. Tremor in voice. Cranial Nerves Visual pandya intact. Fundi with normal discs and vasculature (could no visualize left side well). Reports blurry vision in both eyes without evidence for diplopia on near and far testing. Pupils reactive. Extraocular movements conjugate and full. No ptosis. Visible tissue edema over left upper eyelid. No nystagmus. Facial sensation intact. Face symmetric and strong. Palate and tongue normal. XI normal. Motor Examination and Coordination Motor examination with normal bulk, strength and tone. No drift. Normal coordination. Fast, bilateral arm, tremor worsening with movement and abating with rest. Reflexes Not examined, distance exam Sensation Not examined Gait Arises with caution. Casual gait and Romberg are normal. IMPRESSION: Impression 04/30/2024 - 83-year-old woman presents for elective meningioma resection. She underwent left pterional craniotomy for resection of sphenoid wing meningioma and decompression of the optic canal and lateral orbit on 04/26. She has a history of prior left frontal resection of meningioma and residual encephalomalacia. Recently she fell and diagnosed with small left frontal SDH. She had confusion postop. BEM recorded a subclinical seizure in left FT region. Keppra was started. No further seizures, last one 0104 on 04/28/2024. BEM negative for 48 hours. Recommendations: Continue Keppra 1500 mg BID Discontinue BEM since 48 hours negative Follow up with epilepsy in 4-8 weeks Please call or chat with any questions Interval Impression: 83 year old woman presents for a follow up after hospitalization for elective resection of meningioma. During admission, BEM recorded a subclinical seizure. Keppra was started at 1500 mg BID. She denied any further events. No TB out of sleep. No witnessed events by who lives with her. She denied any change in personality or side effects from the Keppra. She also has a chronic tremor since her 60s. No family history of tremor. The tremor affected both hands early on and then involved voice and head. It calms down at rest and when not anxious. Anxiety and movement will bring it on including eating and drinking or holding objects. She did not notice any improvement with alcohol when she drank in the past. She has been on propranolol for a long time at 40 mg once daily extended release and now takes 15 mg BID with no difference in the tremor. She has not tried any other medications. We discussed plan to continue ASM for now for 1-2 years. Once inflammation and subsequent MRIs show resolution of brain tumor then may plan to reduce ASM and possibly discontinue it. 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 Discussed primidone as a treatment and she was willing to try it. If it helps, may discontinue propranolol gradually. If none of these are helping then will consult with movement disorders. The patient's compliance with therapy has been: Excellent PLAN: - Resume LEV [id number] (was only taking it once daily) - Start primidone 50 mg once daily at bedtime for tremor; may increase gradually if no side effects and notices a benefit - May consider weaning off propranolol if primidone helps - If nothing helps, then will refer to movement disorders - Return in 6 months Data reviewed as above including: electronic medical record, MRI images Education The following issues were discussed with the patient on this visit and written instructions provided as below- Seizure precautions and safety, seizure first aide, when to seek emergency care. Counseling was provided to the patient that missed medications, addition of some new medications, use of alcohol or other substances, and sleep deprivation can lower the seizure threshold. Patient was advised to not drive until released by a physician. I discussed the risk of depression and psychological comorbidities in patients with epilepsy and when to seek help as well as all anti-seizure medication level medications which can increase risk for suicidality. Patient was given my clinic contact information. Medical Management Continue current medications. Prescriptions sent to pharmacy. Medication changes were discussed. The possibility of serious and adverse reactions were discussed in detail as well as proper use of medication. I discussed that not taking this medication as directed could worsen seizures and can be dangerous. I discussed the risks, benefits and alternatives of the medical plan with the patient. Questions were answered. The patient agreed with the plan as discussed. FOLLOW-UP: Return in about 6 months (around 01/02/2025). I spent a total of 40 minutes on the date of the service which included: preparing to see the patient [id number] patient care completing clinical documentation obtaining and/or reviewing separately obtained history performing a medically appropriate examination counseling and educating the patient/family/caregiver ordering medications, tests, or procedures communicating results to the patient/family/caregiver Gerald Cline MD cc: Primary Care Physician: Zoë Kaplan NP, [facility] [address] [facility] [address] Referring: Patient: Ms. Reshma Evans [id number] [facility] [id number] documented in this encounter [facility] 06-21-2024 History of Present illness Narrative Patient verified by last name and . Images from the original note were not included. [facility] [address] [facility] [address] Dept: [phone] Dept Chief Complaint: Reshma Evans is an 83 y.o. female here for an annual wellness visit. Assessment/Plan : Problem List Items Addressed This Visit Essential hypertension Relevant Orders Comprehensive metabolic panel Stable off of medications. Type 2 diabetes mellitus with hyperlipidemia (HCC) Relevant Orders Microalbumin / creatinine urine ratio Diabetes Foot Exam (Completed) Comprehensive metabolic panel Stable with lifestyle modifications. Overweight (BMI 25.0-29.9) Relevant Orders Comprehensive metabolic panel Encouraged a healthy diet low in carbohydrates and sugar. Tremor Relevant Medications propranolol (Inderal) 10 MG tablet propranolol (Inderal) 10 MG tablet Other Relevant Orders Comprehensive metabolic panel Stable with Propranolol. Will continue current treatment plan. Hyperlipidemia Relevant Orders Lipid panel Comprehensive metabolic panel Stable with Simvastatin. Will continue current treatment plan. History of meningioma Stable. Follow up with specialist as directed. Seizures (HCC) Relevant Orders Comprehensive metabolic panel LEVETIRACETAM LEVEL Stable. Will notify of blood work results. Continue Keppra as prescribed by specialist. Neuropathy Stable with Gabapentin. Will continue current treatment plan. Other Visit Diagnoses Medicare annual wellness visit, subsequent - Primary Encouraged a healthy diet low in cholesterol and saturated fats. Encouraged regular exercise. Encounter for diabetic foot exam ([facility]) Relevant Orders Diabetes Foot Exam (Completed) I have reviewed and reconciled the medication list with the patient today. Current Outpatient Medications Medication Sig Dispense Refill acetaminophen (Tylenol) 500 MG tablet 1,000 mg by Enteral route 4 times a day. ascorbic acid (Vitamin C) 500 MG tablet Take 500 mg by mouth daily. Cyanocobalamin (Vitamin B-12) [address] under the tongue. fluorometholone (FML) 0.1 % ophthalmic suspension INSTILL 1 DROP INTO LEFT EYE TWICE DAILY gabapentin (Neurontin) 100 MG capsule Take 1 capsule (100 mg) by mouth 2 times daily. 180 capsule 0 levETIRAcetam (Keppra) 750 MG tablet Take 1,500 mg by mouth twice a day. Multiple Vitamin (multivitamin) capsule Take 1 capsule by mouth daily. nystatin (Mycostatin) 364112 UNIT/GM powder Apply topically three times daily. 30 g 0 omega-3 (Fish Oil) 1000 MG capsule Take 3,000 mg by mouth. pantoprazole (ProtoNix) 40 MG EC tablet Take 40 mg by mouth. simvastatin (Zocor) 40 MG tablet TAKE 1 TABLET NIGHTLY 90 tablet 1 triamcinolone (Kenalog) 0.5 % cream Apply topically 3 times daily. 30 g 0 VITAMIN D PO Take by mouth. vitamin E 180 MG (400 UNIT) capsule Take 180 mg by mouth daily. propranolol (Inderal) 10 MG tablet Take 1.5 tablets (15 mg) by mouth 2 times daily. 270 tablet 1 propranolol (Inderal) 10 MG tablet Take 1.5 tablets (15 mg) by mouth 2 times daily. 90 tablet 0 No current facility-administered medications for this visit. Also reviewed during this visit: The following health maintenance schedule was reviewed with the patient and provided in printed form in the after visit summary: Health Maintenance Topic Date Due RSV Immunization for Adults (1 - 1-dose 75+ series) Never done Medicare Advantage Annual Wellness Visit 07/10/2023 Derm Melanoma Skin Check 10/10/2023 COVID-19 Vaccine ( season) 2024 Diabetes: Urine Albumin-Creatinine Ratio for Kidney Health 04/24/2024 Depression Screening 04/15/2025 Diabetes: Estimated Glomerular Filtration Rate for Kidney Health 05/03/2025 DTaP/Tdap/Td Vaccines (2 - Td or Tdap) 12/10/2028 Hepatitis B Vaccines Completed Influenza Vaccine Completed Pneumococcal Vaccine: 65+ Years Completed Zoster Vaccines Completed Bone Density Scan Completed RSV Immunization under 20 Months Aged Out HIB Vaccines Aged Out IPV Vaccines Aged Out Hepatitis A Vaccines Aged Out Meningococcal Vaccine Aged Out Rotavirus Vaccines Aged Out HPV Vaccines Aged Out List of current healthcare providers: Patient Care Team: Rachid Neville MD as PCP - General (Family Medicine) Orders Placed This Encounter Procedures Microalbumin / creatinine urine ratio Standing Status: Future Number of Occurrences: 1 Standing Expiration Date: 06/21/2025 Lipid panel Standing Status: Future Number of Occurrences: 1 Standing Expiration Date: 06/21/2025 Comprehensive metabolic panel Standing Status: Future Number of Occurrences: 1 Standing Expiration Date: 06/21/2025 LEVETIRACETAM LEVEL Last Dose: approximately 8 PM Standing Status: Future Number of Occurrences: 1 Standing Expiration Date: 06/21/2025 Hm Diabetes Foot Exam Review of Systems Constitutional: Negative for chills and fever. HENT: Negative for hearing loss and trouble swallowing. Eyes: Negative for pain. Respiratory: Negative for cough, chest tightness, shortness of breath and wheezing. Cardiovascular: Negative for chest pain, palpitations and leg swelling. Gastrointestinal: Negative for abdominal distention, abdominal pain, blood in stool, constipation and diarrhea. Endocrine: Negative for polydipsia, polyphagia and polyuria. Genitourinary: Negative for dysuria and hematuria. Musculoskeletal: Negative for gait problem. Skin: Negative for color change, pallor, rash and wound. Neurological: Negative for dizziness, syncope, weakness and headaches. Hematological: Does not bruise/bleed easily. Psychiatric/Behavioral: Negative for dysphoric mood. The patient is not nervous/anxious. Physical Exam Constitutional: General: Not in acute distress. Appearance: Not ill-appearing or diaphoretic. HENT: Head: Normocephalic and atraumatic. Right Ear: Tympanic membrane, ear canal and external ear normal. There is no impacted cerumen. Left Ear: Tympanic membrane, ear canal and external ear normal. There is no impacted cerumen. Nose: Nose normal. No congestion or rhinorrhea. Mouth/Throat: Mouth: Mucous membranes are moist. Pharynx: Oropharynx is clear. No oropharyngeal exudate or posterior oropharyngeal erythema. Eyes: General: No scleral icterus. Extraocular Movements: Extraocular movements intact. Pupils: Pupils are equal, round, and reactive to light. Neck: Thyroid: No thyroid mass or thyromegaly. Vascular: No carotid bruit. Cardiovascular: Rate and Rhythm: Normal rate and regular rhythm. Pulses: Normal pulses. Heart sounds: Normal heart sounds. No murmur heard. No friction rub. Pulmonary: Effort: Pulmonary effort is normal. Breath sounds: Normal breath sounds. No wheezing, rhonchi or rales. Abdominal: General: Bowel sounds are normal. There is no distension. Palpations: Abdomen is soft. There is no hepatomegaly, splenomegaly or mass. Tenderness: There is no abdominal tenderness. There is no guarding or rebound. Musculoskeletal: General: No deformity. Normal range of motion. Cervical back: Normal range of motion and neck supple. Right lower leg: No edema. Left lower leg: No edema. Lymphadenopathy: Cervical: No cervical adenopathy. Skin: General: Skin is warm and dry. Capillary Refill: Capillary refill takes less than 2 seconds. Coloration: Skin is not jaundiced or pale. Findings: No erythema or rash. Diabetic foot check: Normal strength and range of motion of toes, feet, and ankles bilaterally. No joint deformity. No cyanosis or clubbing. 100% sensation with 10 gram filament. Dorsalis pedis pulses intact bilaterally. Capillary refill at the toes was less than 2 seconds. Light touch sensation intact bilaterally. Hair growth present on feet and toes bilaterally. No skin breakdown, erythema, rub spots, blisters, scaling, or ulcers. No calluses or corns. Toenails thin and not ingrown. No evidence of fungal infection. Neurological: Mental Status: Alert and oriented to person, place, and time. Resting tremor noted in head and hands. Motor: No weakness. Coordination: Coordination normal. Gait: Gait normal. Psychiatric: Mood and Affect: Mood normal. Behavior: Behavior normal. Thought Content: Thought content normal. Judgment: Judgment normal. Objective : BP 130/82 (BP Location: Left arm, Patient Position: Sitting) Pulse 71 Ht 5' 7 (1.702 m) Wt 174 lb (78.9 kg) SpO2 98% BMI 27.25 kg/m No results found. Subjective : Reshma presents today with her daughter for her annual Medicare physical. Recently had a left frontotemporal craniotomy for meningioma resection on 04/24/24 and had blood work drawn prior to her surgery. Has not had her cholesterol checked in over a year so we will check this today. Diabetes Mellitus Type II: Most recent hemoglobin A1c was 5.8% on 04/29/24. Known diabetic complications: peripheral neuropathy- takes Gabapentin Cardiovascular risk factors: advanced age (older than 55 for men, 65 for women), diabetes mellitus, dyslipidemia, hypertension, obesity (BMI >= 30 kg/m2), and sedentary lifestyle Current diabetic medications include: None. Eye exam current (within one year): yes - around 04/09/24 Dental exam current (within one year): yes - 12/09/23 Weight trend: Has lost 12 pounds over the past year. Current diet: in general, a healthy diet Current exercise: none Current monitoring regimen: none Home blood sugar records: Does not test. Any episodes of hypoglycemia? Denies signs or symptoms. Is She on EDDIE inhibitor or angiotensin II receptor zully? No- was taken off of her lisinopril due to hypotension- blood pressure is stable today at 130/82 Currently on statin therapy? Yes - Simvastatin Last urine microalbumin was 1 mg/L on 04/24/23- will recheck today. Last foot exam was 04/24/23- will do today. Seizures: Takes her Keppra 1,500 mg twice a day as prescribed. Last dose was yesterday evening. Tremor: Takes Propranolol 15 mg twice a day as prescribed. Feels symptoms are stable. Health Maintenance: DEXA: 12/14/16. Vaccinated for COVID-19 x2 with the most recent dose on 10/23/20- declines additional vaccinations at this time. Is fully vaccinated for shingles and pneumonia. Tdap current: 12/10/18. Flu vaccination current: 04/08/24. Saw a steam and power superintendent for skin cancer screening on 04/10/23- has not been seen this year. Declines to be vaccinated for RSV. Health Risk Assessment: General: General In general, how would you say your health is?: (!) Fair In the past 7 days, have you experienced any of the following: New or Increased Pain, New or Increased Fatigue, Loneliness, Social Isolation, Stress or Anger?: No Do you get the social and emotional suppport you need?: Yes Following up with specialists as directed. Health Habits/Nutrition: Health Habits / Nutrition On average, how many days per week do you engage in moderate to strenous exercise (like a brisk walk)?: (!) 0 days On average, how man minutes do you engage in exercise at this level?: (!) 0 min Have you lost any weight without trying in the past 3 months? : No Have you seen the dentist within the past year?: Yes Declines increase in physical activity at this time. Hearing/ Vision: Hearing / Vision Do you or your family notice any trouble with your hearing that hasn't been managed with hearing aids?: No Do you have difficulty driving, watching TV, or doing any of your daily activities because of your eyesight?: (!) Yes Have you had an eye exam within the past year?: Yes No results found. Encouraged follow up with ophthalmology. Safety: Safety Do you have a working smoke detector?: Yes Do you have any tripping hazards - loose or unsecured carpets or rugs?: No Do you have any tripping hazards - clutter in doorways, halls, or stairs?: No Do you have either shower bars, grab bars, non-slip mats or non-slip surfaces in your shower or bathtub? : Yes Do all your stairways have a railing or banister? : Not Applicable Do you fasten your seatbelt when you are in a car?: Yes ADL: ADL In the past 7 days, did you need help from others to perform any of the following everyday activities: Eating, dressing, grooming,bathing, toileting, or walking / balance? : No In the past 7 days, did you need help from others to take care of any of the following: laundry, housekeeping, banking / finances,shopping, telephone use, food preparation, transportation, or taking medications? : Yes Select all that apply: Transportation, Shopping, Banking / Finances, Taking Medications (daughter does the daily containers) Living Will: Living Will Do you have a living will?: Yes Cognitive: Cognitive Screening: Mini-Cog Clock Drawing Test (CDT): 2 Words Recalled: 2 Total Score: 4 Total Score Interpretation: Normal Mini-Cog Hypertension: Yes Fall Risk: Fall Risk One or more falls in the last year:: Yes Advised to use a cane or walker to get around safely:: No Feels unsteady when walking:: No (sometimes) Steadies self on furniture while walking at home:: Yes Worried about falling:: No Home safety tips provided. Depression Screening: Over the past 2 weeks, how often have you been bothered by any of the following problems? Little interest or pleasure in doing things: Not at all Feeling down, depressed, or hopeless: Not at all Patient Health Questionnaire-2 Score: 0 Interventions: N/A Tobacco Use: Social History Tobacco Use Smoking Status Never Smokeless Tobacco Never Alcohol Use: Social Drivers of Health: SDOH risk assessment performed and documented today by members of the health care team. A total time of 15+ minutes was spent obtaining information from the patient and discussing options to address the patient's social risk factors and unmet needs. Social Drivers of Health with Concerns Concerns Present Physical Activity: Insufficiently Active (04/15/2024)- Declines increased activity at this time Unknown Concern Housing Stability: Unknown (04/30/2024) Received from [facility]- confirmed no concerns 06/21/24 [address] this encounter [facility] 06-21-2024 Instructions IFEANYI Fernandes CNP - 06/21/2024 8:40 AM EST Personalized Preventative Plan for Reshma Evans - 06/21/2024 Medicare offers a range of preventative health benefits. Some of the tests and screenings are paid in full while others may be subject to a deductible, co-insurance, and / or copay. Some of these benefits include a comprehensive review of your medical history including lifestyle, illnesses that may run in your family, and various assessments and screenings as appropriate. After reviewing your medical record and screening and assessments performed today, your provider may have ordered immunizations, labs, imaging, and / or referrals for you. A list of these orders (if applicable) as well as your Preventative Care list are included within your After Visit Summary for your review. Other Preventative Recommendations: A preventive eye exam by an community support specialist is recommended every 1-2 years to screen for glaucoma, cataracts, macular degeneration, and other eye disorders. A preventive dental visit is recommended every 6 months. Try to get at least 150 minutes of exercise per week or 10,000 steps per day on a pedometer. You need 1200-1500mg of calcium and 2162-7125 international units of vitamin D per day. It is possible to meet your calcium requirement with diet alone, but a vitamin D supplement is usually necessary to meet this goal. When exposed to the sun, use a sunscreen that protects against both UVA and UVB radiation with an SPF of 30 or greater. Reapply every 2-3 hours or after sweating, drying off with a towel, or swimming. Always wear a seat belt when traveling in a car. Always wear a helmet when riding a bicycle or a motorcycle The following attachments cannot be sent through Care Everywhere.Preventing Falls in Older Adults (Ukrainian)documented in this encounter [facility] 05-27-2024 History of Present illness Narrative Patient verified by last name and . Images from the original note were not included. 05/27/2024 Reshma Evans (: 1940) is a 83 y.o. female , Established patient, here for evaluation of the following chief complaint(s): Follow-up (Follow up from rehab. States that she had fell and had messed up her eye ) ASSESSMENT/PLAN: 1. Intracranial meningioma (HCC) - Improving. Follow up with specialists as directed. 2. Hospital discharge follow-up - Stable. Continue home therapy as scheduled. 3. Seizures (HCC) - Stable. Continue Keppra as prescribed and follow up with specialists as directed. 4. Aneurysm of anterior communicating artery - Stable. Follow up with specialist as directed. Follow up in 25 days (on 06/21/2024) for Next scheduled follow-up. SUBJECTIVE/OBJECTIVE: HPI - Reshma presents today for follow up from hospitalization. Was in [facility] for a couple of weeks- had left eye surgery. Has been receiving home health services. Per notification on 05/23/24, she will be getting home therapy once a week for one week and then two times a week for four weeks for lower extremity strength and balance. Denies any falls since getting home. Daughter expresses concerns that Reshma does not use her walker as often as she would like. Scheduled for follow up with her community support specialist again in 3 months. Will be following up with neurology at the end of this month to see if she still needs to take her Keppra for her seizures. Will also being seeing a neurosurgeon in July for follow up on an aneurysm of her anterior communicating artery that was detected. Both daughter and Reshma feel she is doing well and is making progress since her surgery. Has family checking on her at least once daily and have no concerns for safety. Review of Systems Constitutional: Negative for chills and fever. Gastrointestinal: Negative for abdominal distention, abdominal pain and blood in stool. Genitourinary: Negative for dysuria and hematuria. Skin: Negative for color change, pallor, rash and wound. Neurological: Negative for seizures. Vitals: 05/27/24 0843 BP: 122/82 Pulse: 78 SpO2: 98% Weight: 171 lb (77.6 kg) Height: 5' 7 (1.702 m) Body mass index is 26.78 kg/m . Physical Exam Constitutional: General: She is not in acute distress. Appearance: She is not ill-appearing or diaphoretic. HENT: Head: Normocephalic and atraumatic. Eyes: Extraocular Movements: Extraocular movements intact. Cardiovascular: Rate and Rhythm: Normal rate and regular rhythm. Heart sounds: Normal heart sounds. No murmur heard. No friction rub. Pulmonary: Effort: Pulmonary effort is normal. Breath sounds: Normal breath sounds. Skin: General: Skin is warm and dry. Coloration: Skin is not pale. Findings: No erythema or rash. Neurological: Mental Status: She is alert and oriented to person, place, and time. Psychiatric: Mood and Affect: Mood normal. Behavior: Behavior normal. Thought Content: Thought content normal. Judgment: Judgment normal. An electronic signature was used to authenticate this note. IFEANYI Fernandes CNP 05/27/2024 9:23 AM documented in this encounter 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 Nicola Cruz - [facility] [phone] SURGERY: Left pterional craniotomy for resection of sphenoid wing meningioma, Decompression of the optic canal and lateral orbit on 04/26/2024 PATHOLOGY: FINAL DIAGNOSIS A. Left sided brain tumor, biopsy: - Meningioma. B. Left intradural brain tumor, biopsy: - Meningioma, meningothelial type, WHO Grade 1. Current Steroids dose: decadron 1mg daily - on taper Current AED Dose: keppra 1500mg bid Pre-Surgical Symptoms: fuzziness in the left eye PMH including HTN, HLD, IKMBERLY, DM. Patient has a past surgical history of left frontal craniotomy for meningioma resection, exenteration of frontal sinus 09/24/[address] Lee Mckeon at [facility]. 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 She was seen at [facility] on 02/13/2024 after a fall after stepping off the curb. She struck the left side of her face. CT brain demonstrated a small left frontal SDH. Repeat imaging was stable. She was recommended to keep her outpatient follow up appointment. She was seen on 02/19/2024 where she had been doing well since fall. She initially had MRIs ordered from Dr. Cruz with opthalmology due to the left eye exophthalmus. She noted that this had started about 2 months prior. She stated that when she looked out of the left eye that vision was a bit fuzzy. 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 Left sphenoid wing meningioma with most of its mass located away from the optic nerve. Small right anterior clinoid meningioma noted that was new from MRI in 2013. Since optic nerve was not well visualized, she was recommended to have MRI pituitary to better assess. Her CT brain showed improvement in the left lateral subdural collection, more chronic in appearance. She was seen on 04/04/2024 where she followed up with MRI imaging - vision was the same, fuzziness in the left eye. She had intermittent headaches, resolved with tylenol. Her MRI brain showed on FIESTA sequences there appears to be significant compression of the optic nerve within the optic canal secondary to bone expansion of the intraosseous component of the tumor. She underwent Left pterional craniotomy for resection of sphenoid wing meningioma, Decompression of the optic canal and lateral orbit on 04/26/2024. Patient is having their 2 week post operative visit. She has been doing well overall. She was discharged from [facility] today. Her incision is healing well and sutures were removed at the rehab facility. She denies any pain but sometimes has some pressure on the left side of her head since she sleeps on that side. She noticed her vision out of the left eye feels a little more clear with up close things but far away is still fuzzy. She has an upcoming appointment with Dr Cline 07/04/2024. She is also scheduled with Dr. Barcenas with Smoker: no Diabetic: YES Anticoagulants / Antiplatelets: no Occupation: retired Incision: Healed PAIN EVALUATION No data found in the last 1 encounters. Current Outpatient Medications Medication Sig Dispense Refill cefADROxil (DURICEF) 500 mg capsule Take 500 mg by mouth two times a day. hydrALAZINE (APRESOLINE) 20 mg/mL injection Inject 0.5 mL intravenously every 6 hours as needed (sbp goal <160). dextrose (TRUEPLUS) 15 gram/32 mL oral gel Take 32 mL by mouth as needed. glucagon 1 mg/mL injection Inject 1 mg intramuscularly as needed. insulin glargine 100 unit/mL (3 mL) Inject 13 Units subcutaneously daily at bedtime. bisacodyl (DULCOLAX) 10 mg supp 1 Suppository by RECTAL route once daily as needed. magnesium hydroxide (MOM) 400 mg/5 mL suspension 30 mL by ORAL/FEEDING TUBE route once daily as needed. ondansetron (ZOFRAN) 4 mg tablet Take 1 tablet by mouth every 6 hours as needed. pantoprazole DR (PROTONIX) 40 mg tablet Take 1 tablet by mouth daily at 6 am. senna-docusate (SENNA-S) 8.6-50 mg per tablet Take 1 tablet by mouth two times a day. acetaminophen (TYLENOL) 500 mg tablet 2 tablets by ORAL/FEEDING TUBE route every 6 hours. dexAMETHasone (DECADRON) 1 mg tablet Take 4 tablets by mouth two times a day with meals for 3 days, THEN 2 tablets two times a day with meals for 5 days, THEN 2 tablets daily with breakfast for 5 days, THEN 1 tablet daily with breakfast for 5 days. 59 tablet 0 levETIRAcetam (KEPPRA) 750 mg tablet Take 2 tablets by mouth two times a day. 120 tablet 5 bacitracin zinc-polymyxin B (POLYSPORIN) 500-10,000 unit/gram ointment Apply to affected area three times a day. nystatin (MYCOSTATIN) powder fluorometholone (FML LIQUID FILM) 0.1 % ophthalmic suspension Use 1 Drop in the left eye two times a day. multivitamin/iron/folic acid (CENTRUM ORAL) Take by mouth. hydroCHLOROthiazide 12.5 mg tablet Take 12.5 mg by mouth once daily. gabapentin (NEURONTIN) 100 mg capsule Take 100 mg by mouth two times a day. lisinopril (ZESTRIL) 10 mg tablet Take 10 mg by mouth once daily. propranolol (INDERAL) 20 mg tablet Take 20 mg by mouth two times a day. Cunningham-3 Fatty Acids-Vitamin E (FISH OIL) 1,000 mg cap Take 1 capsule by mouth. simvastatin (ZOCOR) 40 mg tablet Take by mouth. Cholecalciferol, Vitamin D3, (VITAMIN D) 1,000 unit ORAL Cap Take one(1) tablet daily. ascorbic acid (VITAMIN C) 500 mg ORAL tablet Take one(1) tablet daily. CALCIUM/MAG OXIDE/VITAMIN D3 (CORAL CALCIUM PLUS ORAL) pt not sure of dosage takes 1 daily heparin 5,000 unit/mL injection Inject 1 mL subcutaneously every 8 hours. (Patient not taking: Reported on 05/20/2024) No current facility-administered medications for this visit. OBJECTIVE: BP 136/79 Pulse 71 Ht 5' 6 (1.68m) Wt 177 lb (80.3kg) SpO2 97% BMI 28.58 kg/(m^2). A&Ox3, speech fluent, back to baseline SUJIT 3 mm EOM are full Lt eye still proptotic, some erythema in the eyelid, similar to prior Vision in Lt eye is improved post surgery, still blurry in distance Face symmetric No pronator drift Strength grossly intact in UEs and LEs Ambulates with walker WOUND ASSESSMENT: Incision healed DATA REVIEW: IMAGING STUDIES: No new imaging Images independently reviewed The following portions of the patient's history were reviewed, confirmed, updated as necessary: allergies, current medications, past family history, past medical history, past social history, past surgical history, problem list, HPI and ROS obtained by others. The clinical and radiographic findings as well as the risks, benefits, and alternatives of treatment have been reviewed in detail with the patient. ASSESSMENT/PLAN 1. Intracranial meningioma (HCC) Doing really well post op. Incision is healing really well. Speech is back to pre op. Significant improvement in left sided vision post op per patient. Still blurry at distance. Optic canal well decompressed. Still has proptosis. Discussed pathology - Grade 1 meningioma with Ki67 of 5 % - will plan to do MRI brain in 3 months post op - patient will f/up with their housekeeping associate to re-assess vision - f/up with Dr Barcenas to reeval for rt ICA aneurysm - MRI BRAIN WO/W IVCON; Future Encouraged patient to contact our office should there be any further questions, concerns, or change in symptoms. Patient expressed understanding and is in agreement with plan. Some elements may have been copied from a previous note and have been updated/reviewed where appropriate. All portions reflect current medical decision making from today. Neymar Jeronimo MD I spent a total of 30 minutes on the date of the service which included preparing to see the patient, [id number] patient care, completing clinical documentation, obtaining and/or reviewing separately obtained history, performing a medically appropriate examination, counseling and educating the patient/family/caregiver, ordering medications, tests, or procedures, independently interpreting results (not separately reported), and communicating results to the patient/family/caregiver. documented in this encounter [facility] 05-20-2024 Note HNO ID: [id number] Author: NEYMAR JERONIMO MD Service: ? Author Type: Physician Type: Progress Notes Filed: 05/20/2024 16:36 Note Text: NEUROSURGERY POST-OP NOTE Neymar Jeronimo MD Date of visit: May 20, 2024 Patient Name: Ms.Miriam Ronit Evans Date of : 1940 Current Age: [age] year old Sex: female MRN/E# [id number] Last Office Visit: 05/14/2024 CLINICAL SUMMARY: * 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 Nicola Cruz - [facility] [phone] SURGERY: Left pterional craniotomy for resection of sphenoid wing meningioma, Decompression of the optic canal and lateral orbit on 04/26/2024 PATHOLOGY: FINAL DIAGNOSIS A. Left sided brain tumor, biopsy: - Meningioma. B. Left intradural brain tumor, biopsy: - Meningioma, meningothelial type, WHO Grade 1. Current Steroids dose: decadron 1mg daily - on taper Current AED Dose: keppra 1500mg bid Pre-Surgical Symptoms: fuzziness in the left eye PMH including HTN, HLD, KIMBERLY, DM. Patient has a past surgical history of left frontal craniotomy for meningioma resection, exenteration of frontal sinus 09/24/[address] Lee Mckeon at [facility]. 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 She was seen at [facility] on 02/13/2024 after a fall after stepping off the curb. She struck the left side of her face. CT brain demonstrated a small left frontal SDH. Repeat imaging was stable. She was recommended to keep her outpatient follow up appointment. She was seen on 02/19/2024 where she had been doing well since fall. She initially had MRIs ordered from Dr. Cruz with opthalmology due to the left eye exophthalmus. She noted that this had started about 2 months prior. She stated that when she looked out of the left eye that vision was a bit fuzzy. 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 Left sphenoid wing meningioma with most of its mass located away from the optic nerve. Small right anterior clinoid meningioma noted that was new from MRI in 2013. Since optic nerve was not well visualized, she was recommended to have MRI pituitary to better assess. Her CT brain showed improvement in the left lateral subdural collection, more chronic in appearance. She was seen on 04/04/2024 where she followed up with MRI imaging - vision was the same, fuzziness in the left eye. She had intermittent headaches, resolved with tylenol. Her MRI brain showed on FIESTA sequences there appears to be significant compression of the optic nerve within the optic canal secondary to bone expansion of the intraosseous component of the tumor. She underwent Left pterional craniotomy for resection of sphenoid wing meningioma, Decompression of the optic canal and lateral orbit on 04/26/2024. Patient is having their 2 week post operative visit. She has been doing well overall. [facility] Her incision is healing well and sutures were removed at the rehab facility. She denies any pain but sometimes has some pressure on the left side of her head since she sleeps on that side. She noticed her vision out of the left eye feels a little more clear with up close things but far away is still fuzzy. She has an upcoming appointment with Dr Cline 07/04/2024. She is also scheduled with Dr. Barcenas with Smoker: no Diabetic: YES Anticoagulants / Antiplatelets: no Occupation: retired Incision: Healed PAIN EVALUATION No data found in the last 1 encounters. Current Outpatient Medications Medication Sig Dispense Refill cefADROxil (DURICEF) 500 mg capsule Take 500 mg by mouth two times a day. hydrALAZINE (APRESOLINE) 20 mg/mL injection Inject 0.5 mL intravenously every 6 hours as needed (sbp goal <160). dextrose (TRUEPLUS) 15 gram/32 mL oral gel Take 32 mL by mouth as needed. glucagon 1 mg/mL injection Inject 1 mg intramuscularly as needed. insulin glargine 100 unit/mL (3 mL) Inject 13 Units subcutaneously daily at bedtime. bisacodyl (DULCOLAX) 10 mg supp 1 Suppository by RECTAL route once daily as needed. magnesium hydroxide (MOM) 400 mg/5 mL suspension 30 mL by ORAL/FEEDING TUBE route once daily as needed. ondansetron (ZOFRAN) 4 mg tablet Take 1 tablet by mouth every 6 hours as needed. (more content not included)... [facility] 05-20-2024 Note [facility] Medical Records Department [address] [place] [address] Discharge Summary 05/20/24 0918 MR#: [id number] Acct: [id number] Name: RESHMA EVANS Rep #: [id number] : 1940 83 From: Zoey Feng DO PCP: KEHINDE Barclay Status:ADM IN Location: [email or web address][id number] [facility] Date of Admission: 05/03/24 Date of Discharge: 05/20/24 Primary Care Physician: KEHINDE Barclay Reason For Visit: CRANIOTOMY TO EXCISE RECURRENT MENINGIOMA Diagnosis Discharge Diagnosis (1) Debility: Status: Acute Code(s): R53.81 - Other malaise (2) Meningioma: Status: Chronic Code(s): D32.9 - Benign neoplasm of meninges, unspecified Plan: Recurrent meningioma. Excised on 04/26/[address] Jeronimo. (3) Status post craniotomy: Status: Acute Code(s): Z98.890 - Other specified postprocedural states (4) Seizures: Status: Acute Code(s): R56.9 - Unspecified convulsions Plan: Reshma had no seizures while on rehab. She is being discharged on Keppra 1500 mg twice daily and will follow-up with the epilepsy clinic at [facility]. (5) Hypotension: Status: Resolved Code(s): I95.9 - Hypotension, unspecified Qualifiers: Hypotension type: unspecified hypotension type Qualified Code(s): I95.9 - Hypotension, unspecified Plan: Reshma was taking lisinopril 10 mg daily and propranolol 20 mg twice daily (for essential tremor) at admission to rehab. She required as needed hydralazine to control the blood pressure the first week in rehab. As the dexamethasone was tapered the blood pressure started to fall and lisinopril had to be discontinued. Propranolol was decreased to 15 mg twice daily due to bradycardia. On 05/17/24 she was hypotensive and Propranolol had to be held and then restarted at 10 mg BID. W/U revealed a recurrent UTI. She was treated with appropriate antibiotics and the BP recovered. At the time of DC her BP was 118/65 - 141/71. Propranolol was increased to 15 mg BID at DC from rehab. (6) Acute cystitis: Status: Acute Code(s): N30.00 - Acute cystitis without hematuria Qualifiers: Hematuria presence: without hematuria Qualified Code(s): N30.00 - Acute cystitis without hematuria Plan: She had a UTI at admission to rehab due to a pansensitive E. Coli which was likely related to a Armendariz catheter. She was treated with a 7 day course of antibiotics. Prior to DC she had a recurrent UTI, also due to a pansensitive E. coli. She was treated with 4 days of IV Rocephin and then transitioned to Cefadroxil for an additional 6 days. Reshma has had a problem with chronic constipation for many years. When she gets constipated she retains urine and I suspect this leads to the UTIs. She has been taking senna 2 tabs twice a day and MiraLAX 17 g twice daily while on rehab. I recommended at discharge that if she goes 3 days without a bowel movement on the fourth day she should take a laxative in the AM on the 4th day. (7) Oropharyngeal dysphagia: Status: Chronic Code(s): R13.12 - Dysphagia, oropharyngeal phase Plan: Improved since admission to rehab. Will continue with with [facility] at [facility] for swallowing and for cognitive dysfunction. (8) Dysarthria: Status: Chronic Code(s): R47.1 - Dysarthria and anarthria Plan: She is at her baseline at [facility] from rehab. (9) Cognitive dysfunction: Status: Acute Code(s): F09 - Unspecified mental disorder due to known physiological condition (10) Acute blood loss anemia: Status: Acute Code(s): D62 - Acute posthemorrhagic anemia Plan: Hemoglobin is stable at 11 at discharge from rehab. (11) Diabetes mellitus, type 2: Status: Chronic Code(s): E11.9 - Type 2 diabetes mellitus without complications Qualifiers: Diabetes mellitus residential insulin use: without residential use Diabetes mellitus complication status: with hyperglycemia Qualified Code(s): E11.65 - Type 2 diabetes mellitus with hyperglycemia Plan: Initially was on Glargine and SSI TID AC at admission to rehab. She was also on a 2000 calorie carb controlled diet. As the Dexamethasone was tapered the blood sugars dropped and both Glargine and SSI were discontinued. She had not been getting any insulin for a few days prior to DC and there were no BS's > 160. She will continue a carb controlled diet at [facility] from rehab. (12) Essential tremor: Status: Chronic Code(s): G25.0 - Essential tremor (13) Constipation: Status: Chronic Code(s): K59.00 - Constipation, unspecified Qualifiers: Constipation type: chronic idiopathic constipation Qualified Code(s): K59.04 - Chronic idiopathic constipation Plan: This may be contributing to intermittent urine retention. This has been a problem for quite some time. she is now on Senna and MiraLAX BID and she had a BM yesterday and a BM today. Plan 1. DC home with [facility] home health care for PT/OT/ST/SN/COSTELLO. 2. She costello (more content not included)... [facility] 05-14-2024 Telephone encounter Note Spoke with ZOHREH Funes at [facility]. Let her know Reshma's sutures can come out if everything looks okay. I told them if they have any issues they can call me and I provided my phone number and extension. Confirmed with her that patient is on a Decadron taper. She stated that she is on a taper now. Karli Cox RN [facility] 05-14-2024 Miscellaneous Notes Spoke with ZOHREH Funes at [facility]. Let her know Reshma's sutures can come out if everything looks okay. I told them if they have any issues they can call me and I provided my phone number and extension. Confirmed with her that patient is on a Decadron taper. She stated that she is on a taper now. Karli Cox RN documented in this encounter [facility] 05-07-2024 Telephone encounter Note Spoke with patient's daughter Trina, she was asking about her rehab facility checking her sugars and giving her insulin. I told her they may just be monitoring due to the fact that she is on Decadron which makes sugars go up. I told her to check with the nurse for doctor at the rehab facility and ask about the insulin. I told her long-term hopefully she will not need to be on this but this is something that will need to be managed by her PCP. She is currently at [facility] rehab. Karli Cox RN [facility] 05-07-2024 Miscellaneous Notes Spoke with patient's daughter Trina, she was asking about her rehab facility checking her sugars and giving her insulin. I told her they may just be monitoring due to the fact that she is on Decadron which makes sugars go up. I told her to check with the nurse for doctor at the rehab facility and ask about the insulin. I told her long-term hopefully she will not need to be on this but this is something that will need to be managed by her PCP. [facility]. Karli Cox RN documented in this encounter [facility] 05-03-2024 Note [facility] Medical Records Department [address] [place] [id number] History Physical Exam 05/03/24 1445 MR#: [id number] Acct: [id number] Name: RESHMA EVANS Rep #: [id number] : 1940 83 From: Zoey Feng DO PCP: KEHINDE Barclay Status:ADM IN Location: [id number] [facility] - General General Date of Admission: 05/03/24 Date of Service: 05/03/24 Chief Complaint: Debility due to craniotomy to resect a Left sphenoid wing meningioma. HPI Narrative RESHMA EVANS, is a 83 YO F with a PMH of hypertension, diabetes mellitus type 2 (HGBA1C was 5.8% at [facility]), obstructive sleep apnea and a left sphenoid wing meningioma (had a meningioma resection in 2010 and now it is recurrent) who underwent a left frontal craniotomy on 04/26/[address] [facility] by Dr. Jeronimo to resect a meningioma. Post operatively she had a seizure and was started on Keppra. She has not had additional seizures in the past few days. She has had some difficulty with speech/word finding and oropharyngeal dysphagia post operatively. She was transferred to the acute inpt rehab unit at [facility] on 05/03/24 for 3 hours of therapy daily to restore function/independence at or near her level prior to the surgery. She had a Armendariz catheter post op and then a purewick catheter when transferred out of NICU at [facility]. She is c/o urinary urgency and frequency. She also has some suprapubic discomfort. Ambulated without and AD prior to the surgery. She saw an eye doctor or swollen left upper lid with impairment of vision and was noted to have proptosis. MRI showed a meningioma. She and her were independent prior to the surgery. They have 4 children who live locally and help out somewhat with stuff around the house. she is accompanied by her and her son Paul today. 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 She refused an MRI to better evaluate and did not want any intervention other than craniotomy. [facility] Medical History (Updated 05/04/24 @ 12:[address] Zoey Feng, DO) Essential tremor GERD (gastroesophageal reflux disease) Benign positional vertigo Subdural hematoma Obstructive sleep apnea Meningioma Hyperlipidemia HTN (hypertension) Diabetes mellitus, type 2 Home Medications ???Medication ???Instructions ???Recorded ???Last Taken ???Type acetaminophen 500 mg tablet 1,000 mg PO Q8 pain 05/03/24 05/03/24 History ascorbic acid (vitamin C) 500 mg 1 g PO DAILY supplement 05/03/24 Unknown History tablet (Vitamin C) bacitracin zinc 500 unit-polymyxin 1 applic topical Q12H wound 05/03/24 05/03/24 History B 10,000 unit/gram topical ointment calcium carbonate 500 mg PO DAILY supplement 05/03/24 Unknown History cholecalciferol (vitamin D3) 25 25 mcg PO DAILY supplement 05/03/24 Unknown History mcg (1,000 unit) capsule fluorometholone 0.1 % eye 1 drp LEFT EYE BID eye drop 05/03/24 Unknown History drops,suspension gabapentin 100 mg capsule 100 mg PO BID nerve pain 05/03/24 05/03/24 History heparin (porcine) 5,000 unit/mL 5,000 unit subcut Q8H clot 05/03/24 05/03/24 History injection solution prevention hydralazine 10 mg tablet 10 mg PO Q4H PRN hypertension 05/03/24 Unknown History levetiracetam 750 mg tablet 1,500 mg PO BID seizure 05/03/24 Unknown History (Keppra) lisinopril 10 mg tablet 10 mg PO DAILY blood pressure 05/03/24 05/03/24 History multivitamin-ferrous 1 tab PO DAILY supplement 05/03/24 Unknown History fumarate-folic acid 18 mg-400 mcg tablet (Centrum Women) nystatin 100,000 unit/gram topical 1 applic topical BID redness 05/03/24 Unknown History powder omega-3 900 mg-dha 360 mg-epa 455 1 cap PO DAILY supplement 05/03/24 Unknown History mg-fish oil 1,000 mg capsule (Fish Oil) ondansetron 4 mg disintegrating 4 mg PO Q6H PRN nausea and vomiting 05/03/24 Unknown History tablet oxycodone 5 mg tablet 5 mg PO Q4H PRN pain 05/03/24 Unknown History pantoprazole 40 mg tablet,delayed 40 mg PO DAILY acid reflux 05/03/24 05/03/24 History release (Protonix) propranolol 20 mg tablet 20 mg PO BID blood pressure 05/03/24 05/03/24 History simvastatin 40 mg tablet 40 mg PO QHS cholesterol 05/03/24 Unknown History Allergy/AdvReac Type Severity Reaction Status Date / Time No Known Allergies Allergy Verified 05/03/24 14:30 Family History Sister Cancer Leukemia. Brother Cancer Esophageal cancer Surgical History History of carpal tunnel surgery History of rotator cuff surgery History of repair of congenital cleft palate History of total knee arthroplasty Status post craniotomy Social History household members (more content not included)... [facility] 05-03-2024 Note HNO ID: [id number] Author: ALE FLORENTINO LISW Service: Care Management Author Type: Serging Machine Operator Automatic Type: Care Mgt Progress Note Filed: 05/03/2024 10:31 Note Text: 10:27 AM CARE MANAGEMENT DISCHARGE NOTE SERVICE DATE: May 03, 2024 SERVICE TIME: 10:27 AM [facility] Admission Date: 04/26/2024 LOS: 7 days Discharge Arrangement Discharge Arrangement: Acute Rehabilitation Facility Services Arranged Medical Services: Other: See Comment (transfer to Acute Rehab) Provider Name: [facility] Caregiver Assessment Caregiver is ready, willing and able to meet the patient's needs as recommended by the inter-professional team: Yes [facility] of Caregiver[facility] Arrangements Transportation Arrangements: Car Date of Trip: 05/03/24 Time of Trip: 1200 [facility] Communication: Handoff to: Primary Care Physician Primary Care Physician Name/Phone: Dr. Zoë Kaplan Additional Information: none Discharge Information Row Name Admission (Current) from 04/26/2024 in [place] [address] NEURO/CARD Rehab Facility Agency [facility] Insurance precert obtained for [facility].Called daughter, Jade to discuss and she wishes to have family transport by car. Discussed with bedside nurse and Juhi at [facility].Packet ready. Family to be here around 12 noon. Nurse will call in report for hand off. Will send over D/C summary when completd to [facility]. SIGNATURE: LISE Reich PATIENT NAME: Reshma Evans DATE: May 03, 2024 TIME: 10:27 AM CONTACT #: [phone] [facility] 05-03-2024 Note HNO ID: [id number] Author: ?, ?, ? Service: Care Management Author Type: ? Type: Care Mgt Progress Note Filed: 05/03/2024 10:08 Note Text: [facility] PRECERT NOTE [employer] MEDICARE PPO approved Inpatient Rehab Facility for [facility]. Precert approved through 05/10/24. For any additional questions regarding approvals, transport or care management needs, please contact the CM assigned to this patient in the Treatment Team. SIGNATURE: Dafne Vance DATE: May 03, 2024 TIME: 10:08 AM [facility] 05-03-2024 Note HNO ID: [id number] Author: WYATT SWIFT PA-C Service: Neurosurgery Author Type: Phys[employer] Type: Progress Notes Filed: 05/03/2024 08:55 Note Text: Neurosurgery Progress Note SERVICE DATE: 05/02/2024 SUBJECTIVE: No complaints at this time. No headache, nausea, emesis, numbness, tingling. Is in good spirits. OBJECTIVE: Vitals: Temp (24hrs), Av.5 ?C (97.7 ?F), Min:36.3 ?C (97.3 ?F), Max:36.7 ?C (98 ?F) BP 164/78 Pulse (!) 56 Temp 36.3 ?C (97.4 ?F) (Oral) Resp 18 Ht 167.6 cm (5' 5.98) Wt 80.6 kg (177 lb 11.1 oz) SpO2 98% BMI 28.69 kg/m? O2 Therapy: Room Air Physical Exam: General - Alert and Oriented x3, cooperative, appropriate. Respiratory- even, unlabored GI - abdomen soft, non-tender, non-distended HEENT - Normocephalic. Atraumatic. Neuro - GCS:Opens eyes spontaneously (4),Oriented (5),Obeys motor commands (6) =15 PERRLA, makes eye contact, TM, FS, EOMI Speech: appropriate Motor: FU, BUE and BLE 5/5 Sensation: SILT Drift: NT Extremities- Grossly normal. Symmetrical. No edema, deformity, coloration changes. Pulses- 2+ DP, 2+ radial Labs: Recent Labs 05/03/24 0451 WBC 8.70 HB 13.1 HCT 37.8 PLT 287 NA 133* K 3.9 CHLOR 98 CO2 27 BUN 23* CREAT 0.85 GLUC 91 CA 9.5 Diagnostic tests reviewed for today's visit: Most recent labs and imaging results. ASSESSMENT AND PLAN: Active Hospital Problems Diagnosis Date Noted Meningioma (HCC) 04/26/2024 Seizure (HCC) 04/28/2024 Aneurysm of anterior communicating artery 04/27/2024 Aphasia 04/27/2024 KIMBERLY (obstructive sleep apnea) 04/18/2024 HTN (hypertension) 02/14/2024 Chronic Hyperlipidemia 02/14/2024 Chronic Type 2 diabetes mellitus without complication, without long-term current use of insulin (HCC) 10/07/2016 83 year old female s/p left frontal craniotomy for meningioma resection on 04/26/24 -Neuro as above -Imaging: patient refused post op MRI last night- will plan for MRI 3mo outpatient -Diet: advance as tolerated -Activity: WBAT -Dexamethasone: taper in place -SBP <160 -Seizure ppx: Keppra 1.5 g BID -Epilepsy c/s; BEM discontinued yesterday; outpatient follow up 4-[address] Marlyn DC instructions placed -DVT ppx: SQH -Continue PT/OT/BRIDGE MANAGER -Dispo: PT rec AR at discharge; care management following; medically stable to start precertification; potential DC today vs tomorrow Medication and Non-Pharmacologic VTE Prophylaxis/Anticoagulants Anticoagulant AND Antiplatelet Medications (From admission, onward) Start Dose Route Frequency Last Action Ordered Stop 04/30/24 1400 heparin 5,000 Units injection 5,000 Units SUBCUTANEOUS EVERY 8 HOURS Given, 05/03 0527 04/30/24 1338 -- 04/26/24 1630 vte pharmacologic prophylaxis contraindicated (de,oh) 04/26/24 1630 pneumatic compression stockings (de,oh) 04/26/24 1630 activity - mobilize patient ([place]) Parts of this note may have been copied from one of my previous notes and remain pertinent. The documentation has been reviewed and edited as necessary to support the clinical decision making for today's visit. I spent a total of 25 minutes on the date of the service which included preparing to see the patient, [id number] patient care, completing clinical documentation, obtaining and/or reviewing separately obtained history, performing a medically appropriate examination, and counseling and educating the patient/family/caregiver. SIGNATURE: Wyatt Swift PA-C PATIENT NAME: Reshma Evans DATE: May 02, 2024 TIME: 6:41 AM Pager: [phone] [facility] 05-02-2024 Note HNO ID: [id number] Author: ALE FLORENTINO LISW Service: Care Management Author Type: Serging Machine Operator Automatic Type: Care Mgt Progress Note Filed: 05/02/2024 14:43 Note Text: CARE MANAGEMENT PROGRESS NOTE SERVICE DATE: 05/02/2024 SERVICE TIME: 2:42 PM LOS: 6 days IMM Follow Up Copy Given: Yes Copy given to:: Patient Method: In Person IMM letter given. Patient voiced understanding. Awaiting insurance precert for [facility]. SIGNATURE: LISE Reich PATIENT NAME: Reshma Evans DATE: May 02, 2024 TIME: 2:42 PM PAGER/CONTACT #: [phone] [facility] 05-02-2024 Note HNO ID: [id number] Author: WYATT SWIFT PA-C Service: Neurosurgery Author Type: [employer] Type: Progress Notes Filed: 05/02/2024 13:38 Note Text: Documentation Query Please clarify the diagnosis associated with clinically significant vasogenic edema This document will become part of the patient's medical record. [facility] 05-02-2024 Note HNO ID: [id number] Author: ALE FLORENTINO LISW Service: Care Management Author Type: Serging Machine Operator Automatic Type: Care Mgt Progress Note Filed: 05/02/2024 08:33 Note Text: CARE MANAGEMENT PROGRESS NOTE SERVICE DATE: 05/02/2024 SERVICE TIME: 8:32 AM LOS: 6 days ... Precert started yesterday for [facility].Spoke with daughter, Jade. Family may decide to transport by car they said. Have lots of family to help.Will follow. SIGNATURE: LISE Reich PATIENT NAME: Reshma Evans DATE: May 02, 2024 TIME: 8:31 AM PAGER/CONTACT #: [phone] [facility] 05-02-2024 Note HNO ID: [id number] Author: WYATT SWIFT PA-C Service: Neurosurgery Author Type: [employer] Type: Progress Notes Filed: 05/02/2024 08:30 Note Text: Neurosurgery Progress Note SERVICE DATE: 05/02/2024 SUBJECTIVE: NAEON. Denies any significant headaches. Denies nausea, emesis, numbness, tingling. Is in good spirits. OBJECTIVE: Vitals: Temp (24hrs), Av.6 ?C (97.8 ?F), Min:36.4 ?C (97.5 ?F), Max:36.8 ?C (98.2 ?F) BP 168/81 Pulse 60 Temp 36.4 ?C (97.5 ?F) (Oral) Resp 16 Ht 167.6 cm (5' 5.98) Wt 80.6 kg (177 lb 11.1 oz) SpO2 98% BMI 28.69 kg/m? O2 Therapy: Room Air Physical Exam: General - Alert and Oriented x3, cooperative, appropriate. Respiratory- even, unlabored GI - abdomen soft, non-tender, non-distended HEENT - Normocephalic. Atraumatic. Neuro - GCS:Opens eyes spontaneously (4),Oriented (5),Obeys motor commands (6) =15 PERRLA, makes eye contact, TM, FS, EOMI Speech: appropriate Motor: FU, BUE and BLE 5/5 Sensation: SILT Drift: NT Extremities- Grossly normal. Symmetrical. No edema, deformity, coloration changes. Pulses- 2+ DP, 2+ radial Labs: Diagnostic tests reviewed for today's visit: Most recent labs and imaging results. ASSESSMENT AND PLAN: Active Hospital Problems Diagnosis Date Noted Meningioma (HCC) 04/26/2024 Seizure (HCC) 04/28/2024 Aneurysm of anterior communicating artery 04/27/2024 Aphasia 04/27/2024 KIMBERLY (obstructive sleep apnea) 04/18/2024 HTN (hypertension) 02/14/2024 Chronic Hyperlipidemia 02/14/2024 Chronic Type 2 diabetes mellitus without complication, without long-term current use of insulin (HCC) 10/07/2016 83 year old female s/p left frontal craniotomy for meningioma resection on 04/26/24 -Neuro as above -Imaging: patient refused post op MRI last night- will plan for MRI 3mo outpatient -Diet: advance as tolerated -Activity: WBAT -Dexamethasone: 4 mg BID- taper in place -SBP <160 -Seizure ppx: Keppra 1.5 g BID -Epilepsy c/s; BEM discontinued yesterday; outpatient follow up 4-8 weeks -DVT ppx: SQH -Continue PT/OT/BRIDGE MANAGER -Dispo: PT rec AR at discharge; care management following; medically stable to start precertification; Medication and Non-Pharmacologic VTE Prophylaxis/Anticoagulants Anticoagulant AND Antiplatelet Medications (From admission, onward) Start Dose Route Frequency Last Action Ordered Stop 04/30/24 1400 heparin 5,000 Units injection 5,000 Units SUBCUTANEOUS EVERY 8 HOURS Given, 05/02 0449 04/30/24 1338 -- 04/26/24 1630 vte pharmacologic prophylaxis contraindicated (de,ri) 04/26/24 1630 pneumatic compression stockings (de,ri) 04/26/24 1630 activity - mobilize patient (de,ri) Parts of this note may have been copied from one of my previous notes and remain pertinent. The documentation has been reviewed and edited as necessary to support the clinical decision making for today's visit. I spent a total of 25 minutes on the date of the service which included preparing to see the patient, [id number] patient care, completing clinical documentation, obtaining and/or reviewing separately obtained history, performing a medically appropriate examination, and counseling and educating the patient/family/caregiver. SIGNATURE: Wyatt Swift PA-C PATIENT NAME: Reshma Mckeonraffy DATE: May 02, 2024 TIME: 6:41 AM Pager: [phone] [facility] 05-01-2024 Note HNO ID: [id number] Author: ALE FLORENTINO LISW Service: Care Management Author Type: Serging Machine Operator Automatic Type: Care Mgt Progress Note Filed: 05/01/2024 14:25 Note Text: CARE MANAGEMENT PROGRESS NOTE SERVICE DATE: 05/01/2024 SERVICE TIME: 9:02 AM LOS: 5 days ... Chart reviewed. Called [facility] regarding acceptance. They are waiting for their physician and should know an answer later this afternoon. [facility] can only provide speech 2x a week. Will reach out to daughter once we hear back from [facility]. Once we have accepting facility and choice, will need insurance precert. Addendum: 2:20pm [facility] has accepted.Called and spoke with daughter, Jade. Family has decided on [facility] now instead of [facility] due to speech not being available daily at [facility].Reached out to Neuro about starting the precert to see if she is ready. SIGNATURE: LISE Reich PATIENT NAME: Reshma Evans DATE: May 01, 2024 TIME: 9:02 AM PAGER/CONTACT #: [phone] [facility] 05-01-2024 Note HNO ID: [id number] Author: JESSIE HAM PA-C Service: Neurosurgery Author Type: Phys[employer] Type: Progress Notes Filed: 05/01/2024 09:15 Note Text: Neurosurgery Progress Note SERVICE DATE: 05/01/2024 SUBJECTIVE: NAEON OBJECTIVE: Vitals: Temp (24hrs), Av.6 ?C (97.8 ?F), Min:36.4 ?C (97.6 ?F), Max:36.8 ?C (98.2 ?F) BP 158/75 Pulse 60 Temp 36.4 ?C (97.6 ?F) (Temporal) Resp 18 Ht 167.6 cm (5' 5.98) Wt 80.6 kg (177 lb 11.1 oz) SpO2 98% BMI 28.69 kg/m? O2 Therapy: Room Air IANDO: Date 04/30/24699 - 05/01/24 0659 05/01/24 07 - 05/02/24 0659 Shift 7413-4589 5046-8757 2975-2771 24 Hour Total 7883-8825 7929-3475 9896-7240 24 Hour Total INTAKE Shift Total OUTPUT Urine 1000 1000 Urine Incontinence/Not Saved 1 x 1 x Output ( External Collection Device 04/28/24 1700 [facility]) 1000 1000 Shift Total 1000 1000 Weight (kg) 80.6 80.6 80.6 80.6 80.6 80.6 80.6 80.6 MEDICATIONS Current Facility-Administered Medications Medication Dose Route Frequency heparin 5,000 Units injection 5,000 Units SUBCUTANEOUS q 8 H insulin glargine 13 Units pen (long acting) 13 Units SUBCUTANEOUS AT BEDTIME insulin lispro injection (rapid acting) (ADMElog) SUBCUTANEOUS w MEALS levETIRAcetam 1,500 mg injection (KEPPRA) 1,500 mg INTRAVENOUS BID dextrose 15 gram/32 mL 15 g (TRUEPLUS) 15 g ORAL PRN Or glucagon 1 mg injection 1 mg INTRAMUSCULAR PRN Or dextrose 10% iv bolus 12.5 g INTRAVENOUS PRN gabapentin 100 mg cap(s) (NEURONTIN) 100 mg ORAL BID fluorometholone 0.1 % 1 Drop ophthalmic drop (FML LIQUID FILM) 1 Drop LEFT EYE BID acetaminophen 1,000 mg tab(s) (TYLENOL) 1,000 mg ORAL/FEEDING TUBE q 6 H oxyCODONE IR 5-10 mg tab(s) (ROXICODONE) 5-10 mg ORAL/FEEDING TUBE q [address] 40 mg tab(s) (PROTONIX) 40 mg ORAL DAILY (6 AM) ondansetron 4 mg tab(s) (ZOFRAN) 4 mg ORAL q 6 H PRN Or ondansetron (PF) 4 mg injection (ZOFRAN) 4 mg INTRAVENOUS q 6 H PRN magnesium hydroxide 400 mg/5 mL 30 mL (MOM) 30 mL ORAL/FEEDING TUBE DAILY PRN bisacodyl 10 mg suppository (DULCOLAX) 10 mg RECTAL DAILY PRN senna-docusate 8.6-50 mg 1 tablet (SENNA-S) 1 tablet ORAL BID hydrALAZINE 10 mg injection (APRESOLINE) 10 mg INTRAVENOUS q 6 H PRN dexAMETHasone sodium phosphate 4 mg injection (DECADRON) 4 mg INTRAVENOUS q 6 H simvastatin 40 mg tab(s) (ZOCOR) 40 mg ORAL DAILY lisinopril 10 mg tab(s) (ZESTRIL) 10 mg ORAL DAILY Labs: Recent Labs 04/29/24 0434 WBC 10.84 HB 9.4* HCT 29.1* PLT 157 Exam: GENERAL: Awake and alert; NAD NEURO: Orientedx2-3, some confusion; speech slow but clear; FU; no arm drift HEENT: Incision C/D/I; perrl/eomi; no facial droop LUNGS: Unlabored breathing CARDIAC: Rate and rhythm as above ABDOMEN: Soft, non-tender, non-distended EXTREMITIES: No deformities, No edema SKIN: Skin color normal; Temperature normal; no rashes or lesions ASSESSMENT AND PLAN: 83 year old female s/p left frontal craniotomy for meningioma resection POD#5 -Neuro as above -Imaging: patient refused post op MRI last night- will plan for MRI 3mo outpatient -Diet: advance as tolerated -Activity: WBAT -Dexamethasone: 4 mg BID- taper in place -SBP <160 -Seizure ppx: Keppra 1.5 g BID -Epilepsy c/s; BEM discontinued yesterday; outpatient follow up 4-8 weeks -DVT ppx: SQH -Continue PT/OT/BRIDGE MANAGER -Dispo: PT rec AR at discharge; care management following Parts of this note may have been copied from one of my previous notes and remain pertinent. The documentation has been reviewed and edited as necessary to support the clinical decision making for today's visit. SIGNATURE: Jessie Ham PA-C PATIENT NAME: Reshma Evans DATE: May 01, 2024 TIME: 7:16 AM Pager: [phone] [facility] 04-30-2024 Note HNO ID: [id number] Author: EMRE LOMBARDI RN Service: Nursing Author Type: Registered Nurse Type: Nursing Progress Note Filed: 04/30/2024 20:28 Note Text: Notified and spoke with sound that pt went down to MRI and stated she did not want it done. [facility] 04-30-2024 Note HNO ID: [id number] Author: DARRELL DAVIS DO Service: Hospital Medicine Author Type: Physician Type: Progress Notes Filed: 04/30/2024 14:35 Note Text: DEPARTMENT OF HOSPITAL MEDICINE PROGRESS NOTE SERVICE DATE: 04/30/2024 SERVICE TIME: 999 Hospital Medicine/Primary Attending: Darrell Davis DO NIGHT AND WEEKEND COVERAGE: After 7pm please page [phone] CHIEF COMPLAINT: no new complaints SUBJECTIVE: Pt seen and examined. Denies CP, SOB, NV, headache, fever/chills or abdominal pain OBJECTIVE: PHYSICAL EXAM: BP 129/61 Pulse 63 Temp (Src) 97.6 (Oral) Resp 18 Ht 5' 5.984 (1.68m) Wt 177 lb 11.1 oz (80.6kg) SpO2 99% BMI 28.69 kg/(m2). O2 Therapy: Room Air General - AANDOx2, NAD, Calm CV - RRR S1 S2, No rubs or gallops RESP - No wheezes, ronchi, rales ABD - soft, NT, ND +BS EXT - no gross joint deformity, no clubbing, cyanosis, moved all extremities MEDICATIONS: Current Facility-Administered Medications Medication Dose Route Frequency gabapentin 100 mg cap(s) (NEURONTIN) 100 mg ORAL BID fluorometholone 0.1 % 1 Drop ophthalmic drop (FML LIQUID FILM) 1 Drop LEFT EYE BID acetaminophen 1,000 mg tab(s) (TYLENOL) 1,000 mg ORAL/FEEDING TUBE q 6 H oxyCODONE IR 5-10 mg tab(s) (ROXICODONE) 5-10 mg ORAL/FEEDING TUBE q [address] 40 mg tab(s) (PROTONIX) 40 mg ORAL DAILY (6 AM) ondansetron 4 mg tab(s) (ZOFRAN) 4 mg ORAL q 6 H PRN Or ondansetron (PF) 4 mg injection (ZOFRAN) 4 mg INTRAVENOUS q 6 H PRN magnesium hydroxide 400 mg/5 mL 30 mL (MOM) 30 mL ORAL/FEEDING TUBE DAILY PRN bisacodyl 10 mg suppository (DULCOLAX) 10 mg RECTAL DAILY PRN senna-docusate 8.6-50 mg 1 tablet (SENNA-S) 1 tablet ORAL BID hydrALAZINE 10 mg injection (APRESOLINE) 10 mg INTRAVENOUS q 6 H PRN dexAMETHasone sodium phosphate 4 mg injection (DECADRON) 4 mg INTRAVENOUS q 6 H simvastatin 40 mg tab(s) (ZOCOR) 40 mg ORAL DAILY lisinopril 10 mg tab(s) (ZESTRIL) 10 mg ORAL DAILY dextrose 15 gram/32 mL 15 g (TRUEPLUS) 15 g ORAL PRN Or glucagon 1 mg injection 1 mg INTRAMUSCULAR PRN Or dextrose 10% iv bolus 12.5 g INTRAVENOUS PRN levETIRAcetam 1,500 mg injection (KEPPRA) 1,500 mg INTRAVENOUS BID insulin lispro injection (rapid acting) (ADMElog) SUBCUTANEOUS w MEALS insulin glargine 10 Units pen (long acting) 10 Units SUBCUTANEOUS AT BEDTIME heparin 5,000 Units injection 5,000 Units SUBCUTANEOUS q 8 H DATA: Diagnostic tests reviewed for today's visit: CBC: No results for input(s): WBC, RBC, HB, HCT, PLT, MCV, MCH, MPV, RDW in the last 24 hours. Coags: No results for input(s): PT, INR, APTT in the last 24 hours. BMP: No results for input(s): NA, K, CHLOR, CO2, BUN, CREAT, GLUC in the last 24 hours. CMP: No results for input(s): NA, K, CHLOR, CO2, BUN, CREAT, GLUC, TPROT, CA, MG, ALBUMIN, TBILI, ALKPHOS, ALT, AST, ANION in the last 24 hours. Cardiac Enzymes: No results for input(s): CK, MB, CKMB, TROPT in the last 24 hours. Liver Function, Amylase, Lipase: No results for input(s): TPROT, ALB, ALT, AST, ALKPHOS, TBILI, AMYLASE, LIPASE, LACTATE in the last 24 hours. MG/PHOS: No results for input(s): MG, P in the last 24 hours. Renal Panel: No results for input(s): ALBUMIN, CREAT, BUN, GLUC, CA, P, CHLOR, K, CO2, NA in the last 24 hours. Heme: No results for input(s): RETICP, ABSRETIC, LD, JUAN, FE, TIBC,TRANSFERSAT in the last 24 hours. No results found for: UALBCR Estimated Creatinine Clearance: 48.9 mL/min (based on SCr of 0.9 mg/dL). Most recent labs and radiology results reviewed. Assessment/Plan #Left sphenoid wing meningioma -Management per primary team -On decadron q6h -PT/OT #Post-operative seizure -Seizure precautions. Continue Keppra 1500 mg BID per epilepsy recs -on cEEG #Incidental brain aneurysm -Neuro-interventional consulted. #HTN-continue lisinopril 10mg PO every day #HLD -Continue simvastatin 40 mg daily #DMII with hyperglycemia -suspect steroid induced hyperglycemia -Hgb A1c 5.8. -I reviewed accucheck trends and in upper 100s and 200s. I will increase lantus from 10 to 13 units nightly. Lispro SSIC. Carb control diet, hypoglycemia protocol. Anemia - Hgb stable 9.4 (9.5). GERD -PPI daily KIMBERLY -not currently on CPAP VTE Prophylaxis: per primary team Plan of care discussed with: Provider, RN, Patient SIGNATURE: Darrell Davis DO PATIENT NAME: Reshma Evans DATE: April 30, 2024 TIME: 2:28 PM PAGER/CONTACT #: Team color pager Disclaimer: Portions of this note may have been generated using ZEB voice recognition software. Reasonable efforts were made to correct any dictation errors that resulted due to the programming of this software but some may still be present. Please note, the time of this note does not reflect the time I saw this patient today, but the nelda (more content not included)... [facility] 04-30-2024 Note HNO ID: [id number] Author: FLYNN RODRIGUEZ MD Service: Hospital Medicine Author Type: Physician Type: Progress Notes Filed: 04/30/2024 09:22 Note Text: Documentation Query Please clarify type of anemia acute Blood Loss anemia This document will become part of the patient's medical record. [facility] 04-30-2024 Note HNO ID: [id number] Author: JESSIE HAM PA-C Service: Neurosurgery Author Type: [employer] Type: Progress Notes Filed: 04/30/2024 13:40 Note Text: Neurosurgery Progress Note SERVICE DATE: 04/30/2024 SUBJECTIVE: NAEON OBJECTIVE: Vitals: Temp (24hrs), Av.6 ?C (97.8 ?F), Min:36.1 ?C (97 ?F), Max:36.8 ?C (98.3 ?F) BP 146/69 Pulse (!) 51 Temp 36.1 ?C (97 ?F) (Temporal) Resp 16 Ht 167.6 cm (5' 5.98) Wt 80.6 kg (177 lb 11.1 oz) SpO2 98% BMI 28.69 kg/m? O2 Therapy: Room Air IANDO: Date 04/29/24699 - 04/30/24 0604/30/24699 - 05/01/24 0659 Shift 4158-8625 4941-1474 0559-5255 24 Hour Total 9227-8776 9411-9375 0943-4293 24 Hour Total INTAKE Shift Total OUTPUT Urine 500 500 Urine Incontinence/Not Saved 1 x 1 x 2 x Output ( External Collection Device 04/28/24 1700 [facility]) 500 500 Shift Total 500 500 Weight (kg) 80.6 80.6 80.6 80.6 80.6 80.6 80.6 80.6 MEDICATIONS Current Facility-Administered Medications Medication Dose Route Frequency insulin lispro injection (rapid acting) (ADMElog) SUBCUTANEOUS w MEALS insulin glargine 10 Units pen (long acting) 10 Units SUBCUTANEOUS AT BEDTIME levETIRAcetam 1,500 mg injection (KEPPRA) 1,500 mg INTRAVENOUS BID dextrose 15 gram/32 mL 15 g (TRUEPLUS) 15 g ORAL PRN Or glucagon 1 mg injection 1 mg INTRAMUSCULAR PRN Or dextrose 10% iv bolus 12.5 g INTRAVENOUS PRN gabapentin 100 mg cap(s) (NEURONTIN) 100 mg ORAL BID fluorometholone 0.1 % 1 Drop ophthalmic drop (FML LIQUID FILM) 1 Drop LEFT EYE BID acetaminophen 1,000 mg tab(s) (TYLENOL) 1,000 mg ORAL/FEEDING TUBE q 6 H oxyCODONE IR 5-10 mg tab(s) (ROXICODONE) 5-10 mg ORAL/FEEDING TUBE q [address] 40 mg tab(s) (PROTONIX) 40 mg ORAL DAILY (6 AM) ondansetron 4 mg tab(s) (ZOFRAN) 4 mg ORAL q 6 H PRN Or ondansetron (PF) 4 mg injection (ZOFRAN) 4 mg INTRAVENOUS q 6 H PRN magnesium hydroxide 400 mg/5 mL 30 mL (MOM) 30 mL ORAL/FEEDING TUBE DAILY PRN bisacodyl 10 mg suppository (DULCOLAX) 10 mg RECTAL DAILY PRN senna-docusate 8.6-50 mg 1 tablet (SENNA-S) 1 tablet ORAL BID hydrALAZINE 10 mg injection (APRESOLINE) 10 mg INTRAVENOUS q 6 H PRN dexAMETHasone sodium phosphate 4 mg injection (DECADRON) 4 mg INTRAVENOUS q 6 H simvastatin 40 mg tab(s) (ZOCOR) 40 mg ORAL DAILY lisinopril 10 mg tab(s) (ZESTRIL) 10 mg ORAL DAILY Labs: Recent Labs 04/29/24 0434 04/28/24 0401 WBC 10.84 14.25* HB 9.4* 9.5* HCT 29.1* 28.9* PLT 157 156 Exam: GENERAL: Awake and alert; NAD NEURO: Orientedx2-3, some confusion; speech slow but clear; FU; no arm drift HEENT: Incision C/D/I; perrl/eomi; no facial droop LUNGS: Unlabored breathing CARDIAC: Rate and rhythm as above ABDOMEN: Soft, non-tender, non-distended EXTREMITIES: No deformities, No edema SKIN: Skin color normal; Temperature normal; no rashes or lesions ASSESSMENT AND PLAN: 83 year old female s/p left frontal craniotomy for meningioma resection POD#4 -Neuro as above -Imaging: post op MRI with CISS pending, OK to remove EEG leads and place them back on -Diet: advance as tolerated -Incision(s)/Dressing(s): Reinforce as needed -Activity: WBAT -Dexamethasone: 4 mg q6h -SBP <160 -Seizure ppx: Keppra 1.5 g BID -cEEG; Epilepsy c/s -DVT ppx: SQH -Continue PT/OT/BRIDGE MANAGER -Dispo: PT rec AR at discharge; patient's family considering SNF placement; care management following Parts of this note may have been copied from one of my previous notes and remain pertinent. The documentation has been reviewed and edited as necessary to support the clinical decision making for today's visit. SIGNATURE: Jessie Ham PA-C PATIENT NAME: Reshma Evans DATE: April 30, 2024 TIME: 6:49 AM Pager: [phone] [facility] 04-29-2024 Note HNO ID: [id number] Author: SUSAN FUNES APRN.[employer]URE INSTRUCTOR Service: Neurology ICU Author Type: Nurse Practitioner Type: Progress Notes Filed: 04/29/2024 09:36 Note Text: SERVICE DATE: 04/29/2024 SERVICE TIME: 9:35 AM NEURO ICU PROGRESS NOTE DATE OF ADMISSION: 04/26/2024 Subjective Hospital Course: 04/27: s/p meningioma resections yesterday with Dr. Jeronimo. Post op CTH with pneumocephalus started on Q2h high flow oxygen. Had some confusion last night but was improving. Upon evaluation this morning was noted to be perseverating and seemed to have word finding difficulty. Also noted to have a tremor exacerbated by stimulation. Stat CTH and CTA h/n ordered. Will check 20 min EEG given fluctuating exam findings 04/28: Seizures captured on EEG overnight. Keppra increased. Will call for BEM check later today 04/29: BEM overnight with no seizures. No acute events overnight. NSGY plan to transfer to floor today. Will monitor EEG through tomorrow am and will d/c if remains negative. Events Since Last Note: As above Objective BP 135/72 Pulse (!) 41 Temp 36.6 ?C (97.8 ?F) (Temporal) Resp 13 Ht 167.6 cm (5' 5.98) Wt 80.6 kg (177 lb 11.1 oz) SpO2 100% BMI 28.69 kg/m? Weight change: Neuro: GCS: Eyes: 4. Spontaneous Verbal: 4: Confused Motor: 6: Obeys Motor commands Total: 14 Awake, AANDO x2, disoriented to time Speech slightly dysarthric Follows commands PERRL, EOMI MAEx4 Strength 5/5 in all four extremities Sensation intact to light touch CV: HRR Pulm: CTAB GI/: soft, nontender Skin/Extremities: Edema- No Peripheral pulses- Present all extremities Wounds/Drsgs- Yes post op crani dsg c/d/i Breakdown- No Diagnostic tests reviewed for today's visit: Most recent labs and imaging results. Lines, Drains, and Airways Line Duration Peripheral 04/26/24 0830 Left Forearm 18 Gauge 3 days Peripheral 04/27/24 Right Forearm 20 Gauge 2 days Drain Duration External Collection Device 04/28/24 1700 [facility] <1 day ICU Checklist Last Documented/Reviewed time: 04/29/2024 9:33 AM ICU Consent Complete?: No ICU Code Status History assess/Full code by default: No, active code status present -------- A= Assess, Prevent, Manage Pain Pain adequately controlled?: No C= Choice of Sedation and Analgesia RASS at Goal?: No B= Both Spontaneous Awakening and Breathing Trials Ventilator: None D= Delirium: Assess, Prevent and Manage ICU Delirium Status: CAM Positive - new, will place orders Sleep adequate?: No Restraint Status: None E= Early Mobility/Excercise ICU Mobility: ICU Mobility Goal: Move to chair F= Family Engagement and Empowerment ICU plan of care visit at bedside in last 24 hours: Yes, Provider, RN, Patient/ designee ICU Disposition: ICU Disposition-POC Detail: To be determined Prevention: Line Status: Arterial line Arterial Line Status: Able to remove today Armendariz Status: None Pressure Injury Status: None GI/Stress Ulcer Prophylaxis: PPI Nutrition is at Goal: Yes VTE Prophylaxis: Chemoprophylaxis: No chemoprophylaxis Mechanical Prophylaxis: Knee high SCD No Chemoprophylaxis Reason: Bleeding risk PERSONAL INVOLVEMENT IN CARE: Reviewing initiation, responses and adjustments to therapies, coordination of care, and updating family with Staff Physician, Dr. Vasquez. Assessment AND Plan 83yo female with PMHx significant for HTN, DM, KIMBERLY and L sphenoid wing meningioma. Pt presented for craniotomy for resection of meningioma by Dr Jeronimo. Active Hospital Problems as of 04/29/2024 Noted - Resolved [facility] HTN (hypertension) 02/14/2024 - Present Yes Hyperlipidemia 02/14/2024 - Present Yes Aneurysm of anterior communicating artery 04/27/2024 - Present Yes Aphasia 04/27/2024 - Present Clinically Undetermined * (Principal) Meningioma (HCC) 04/26/2024 - Present Yes KIMBERLY (obstructive sleep apnea) 04/18/2024 - Present Yes Seizure (HCC) 04/28/2024 - Present Unknown Current Assessment AND Plan EEG - This bedside EEG was recorded from 2248 on 04/27/2024 until 0509 on 04/28 and is suggestive of an acute/subacute bilateral cortical dysfunction maximum in the left hemisphere with potential epileptogenicity in the left temporal region. An left frontotemporal EEG seizure was seen from 100 to 0104 on 04/28/2024 with no apparent clinical signs. There is evidence of left frontotemporal breach, consistent with known history of craniotomy. There is also evidence for a severe diffuse encephalopathy. PLAN - cEEG- 04/28 to 04/29 - no seizures - Seizure precautions - Keppra 1500 BID - NSGY planning to transfer to floor on 04/29 - will follow EEG read on 04/30- if negative will plan to d/c EEG - q4h neuro checks Type 2 diabetes mellitus without complication, without emerald (more content not included)... [facility] 04-29-2024 Note HNO ID: [id number] Author: WYATT SWIFT PA-C Service: Neurosurgery Author Type: Physician [employer] Type: Progress Notes Filed: 04/29/2024 10:04 Note Text: Neurosurgery Progress Note SERVICE DATE: 04/29/2024 SUBJECTIVE: NAEON. Improving cognition and speech. No documented seizures overnight. OBJECTIVE: Vitals: Temp (24hrs), Av.7 ?C (98.1 ?F), Min:36.3 ?C (97.3 ?F), Max:37.2 ?C (99 ?F) BP 136/60 Pulse (!) 37 Temp 36.4 ?C (97.6 ?F) Resp 15 Ht 167.6 cm (5' 5.98) Wt 80.6 kg (177 lb 11.1 oz) SpO2 100% BMI 28.69 kg/m? O2 Therapy: Nasal Cannula IANDO: Date 04/28/24 07 - 04/29/24 0659 04/29/24 07 - 04/30/24 0659 Shift 9404-1419 9981-2253 7739-3847 24 Hour Total 1212-7751 8332-6371 4545-7783 24 Hour Total INTAKE PO 60 60 PO 60 60 Shift Total 60 60 OUTPUT Urine 275 167 473 8382 Output ( External Collection Device 04/28/24 1700 [facility]) 600 600 Output ([REMOVED] Indwelling Urinary Catheter 04/26/24 0835 [facility] Armendariz 16 Fr 04/28/24 1700) 275 255 530 Shift Total 275 673 368 8889 Weight (kg) 80.6 80.6 80.6 80.6 80.6 80.6 80.6 80.6 Neuro: GCS: Eyes: Opens eyes spontaneously (4) Verbal: Confused (4) Motor: Obeys motor commands (6) Total: 14. AANDOx2 off for month/year FS. TM EOMI Facial sensation intact PERRL. Speech slowed though clear Motor Exam- RUE: 5/5 LUE: 5/5 RLE: 5/5 LLE: 5/5 Sensation: SILT General: NAD HEENT: - incision site c/d/I; eeg leads in place CV: HR 40-50s at rest Pulm: even, unlabored GI/: abdomen soft, non-tender, non-distended Skin/Extremities: Grossly normal. Symmetrical. No edema, deformity, coloration changes. Peripheral pulses -present all extremities Labs: Recent Labs 04/29/24 0434 04/28/24 0401 04/27/24 0320 WBC 10.84 14.25* 11.00 HB 9.4* 9.5* 10.6* HCT 29.1* 28.9* 31.4* PLT 157 156 164 INR -- -- 1.0 APTT -- -- 26.1 NA -- -- 136 K -- -- 3.8 CHLOR -- -- 102 CO2 -- -- 25 BUN -- -- 20 CREAT -- -- 0.90 GLUC -- -- 167* CA -- -- 8.6 MG -- -- 1.8 P -- -- 3.3 Recent Labs 04/26/24 1320 04/26/24 1018 04/26/24 0823 PCO2 31.4* 32.6* -- PO2 203* 180* -- BE 1 2 -1 HCO3 24.0 25.2 24.7 Diagnostic tests reviewed for today's visit: Most recent labs and imaging results. ASSESSMENT AND PLAN: Active Hospital Problems Diagnosis Date Noted Meningioma ([facility]) 04/26/2024 Seizure (HCC) 04/28/2024 Aneurysm of anterior communicating artery 04/27/2024 Aphasia 04/27/2024 KIMBERLY (obstructive sleep apnea) 04/18/2024 HTN (hypertension) 02/14/2024 Chronic Hyperlipidemia 02/14/2024 Chronic Type 2 diabetes mellitus without complication, without long-term current use of insulin (HCC) 10/07/2016 83 year old female POD #3 -Neuro as above -Pain control: continue current regimen -Imaging: post op MRI with CISS, OK to remove EEG leads today and place them back on; called MRI to update them but no one answered so left Voicemail. -Diet: Thin liquid -Incision(s)/Dressing(s): Reinforce as needed -Drain(s): No drains -Antibiotic(s): post op abx complete -Activity: WBAT -Dexamethasone: 4 mg q6h -SBP <160 -HOB >30 -Seizure ppx: Keppra 1.5 g BID -cEEG -DVT ppx: SCDs -GI ppx: protonix -Dispo: OK for RNF today Parts of this note may have been copied from one of my previous notes and remain pertinent. The documentation has been reviewed and edited as necessary to support the clinical decision making for today's visit. I spent a total of 20 minutes on the date of the service which included preparing to see the patient, [id number] patient care, completing clinical documentation, obtaining and/or reviewing separately obtained history, and performing a medically appropriate examination. SIGNATURE: Wyatt Swift PA-C PATIENT NAME: Reshma Evans DATE: April 29, 2024 TIME: 7:35 AM Pager: [phone] [facility] 04-28-2024 Note HNO ID: [id number] Author: KAYODE OSUNA APRN.CNP Service: Neurology ICU Author Type: Nurse Practitioner Type: Progress Notes Filed: 04/28/2024 17:31 Note Text: SERVICE DATE: 04/28/2024 SERVICE TIME: 5:31 PM NEURO ICU PROGRESS NOTE DATE OF ADMISSION: 04/26/2024 Subjective Hospital Course: 04/27: s/p meningioma resections yesterday with Dr. Jeronimo. Post op CTH with pneumocephalus started on Q2h high flow oxygen. Had some confusion last night but was improving. Upon evaluation this morning was noted to be perseverating and seemed to have word finding difficulty. Also noted to have a tremor exacerbated by stimulation. Stat CTH and CTA h/n ordered. Will check 20 min EEG given fluctuating exam findings 04/28: Seizures captured on EEG overnight. Keppra increased. Will call for BEM check later today Events Since Last Note: As above Objective BP 121/93 Pulse 66 Temp 36.8 ?C (98.2 ?F) (Temporal) Resp 14 Ht 167.6 cm (5' 5.98) Wt 80.6 kg (177 lb 11.1 oz) SpO2 99% BMI 28.69 kg/m? Weight change: 1.5 kg (3 lb 4.9 oz) Neuro: Opens eyes spontaneously PERRL, EOMI Speech clear, but there is mixed aphasia Not following commands likely 2/2 to above MAEx4 GCS: Eyes: 4. Spontaneous Verbal: 4: Confused Motor: 5: Localizes to stimulation Total: 13 CV: RRR, bradycardia on monitor Pulm: Even, unlabored, CTAB, Mechanical Ventilation: No GI/: Soft, non-tender, non-distended Skin/Extremities: Edema- No Peripheral pulses- Present all extremities Wounds/Drsgs- Yes Diagnostic tests reviewed for today's visit: Most recent labs and imaging results. Lines, Drains, and Airways Line Duration Peripheral 04/26/24 0830 Left Forearm 18 Gauge 1 day Peripheral 04/27/24 Right Forearm 20 Gauge 1 day Drain Duration Indwelling Urinary Catheter 04/26/24 0835 [facility] Armendariz 16 Fr 1 day ICU Checklist Last Documented/Reviewed time: 04/28/2024 8:09 AM ICU Consent Complete?: No ICU Code Status History assess/Full code by default: No, active code status present -------- A= Assess, Prevent, Manage Pain Pain adequately controlled?: No C= Choice of Sedation and Analgesia RASS at Goal?: No B= Both Spontaneous Awakening and Breathing Trials Ventilator: None D= Delirium: Assess, Prevent and Manage ICU Delirium Status: CAM Positive - new, will place orders Sleep adequate?: No Restraint Status: None E= Early Mobility/Excercise ICU Mobility: ICU Mobility Goal: Move to chair F= Family Engagement and Empowerment ICU plan of care visit at bedside in last 24 hours: Yes, Provider, RN, Patient/ designee ICU Disposition: ICU Disposition-POC Detail: To be determined Prevention: Line Status: Arterial line Arterial Line Status: Able to remove today Armendariz Status: None Pressure Injury Status: None GI/Stress Ulcer Prophylaxis: PPI Nutrition is at Goal: Yes VTE Prophylaxis: Chemoprophylaxis: No chemoprophylaxis Mechanical Prophylaxis: Knee high SCD No Chemoprophylaxis Reason: Bleeding risk PERSONAL INVOLVEMENT IN CARE: Reviewing initiation, responses and adjustments to therapies, coordination of care, and updating family with Staff Physician, Dr. Verma. Assessment AND Plan 83yo female with PMHx significant for HTN, DM, KIMBERLY and L sphenoid wing meningioma. Pt presented for craniotomy for resection of meningioma by Dr Jeronimo. 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 Image 313 series 5. No large vessel occlusion or severe short segment stenosis of the proximal [place] of Ramírez. No flow-limiting stenosis on CTA neck. Plan EEG with evidence of seizure BRIDGE MANAGER consult HTN (hypertension) 02/14/2024 - Present Yes Current Assessment AND Plan - hold HCTZ for now - resume home lisinopril and propranolol - SBP <160 - PRN hydralazine Hyperlipidemia 02/14/2024 - Present Yes Current Asses (more content not included)... [facility] 04-28-2024 Note HNO ID: [id number] Author: CLAUDIO VERMA MD Service: Neurology ICU Author Type: Physician Type: Plan of Care Filed: 04/28/2024 16:04 Note Text: ICU Progress Note (Staff Attestation) In brief, Reshma Evans is an 83 year old female with history of HTN, HLD, DM2 (HbA1c 6.1 04/2023), and KIMBERLY. The patient underwent L pterional craniotomy for resection of sphenoid wing meningioa, decompression of optic canal and lateral orbit on 04/26/24. She was admitted to the NSICU post-operatively. Post-op imaging notable for pneumocephalus for which she was started on intermittent high flow supplemental oxygen. She exhibited some word finding difficulty overnight, for which a CTH and CTA H/N were obtained, which were notable for post-operative changes with interval improvement of pneumocephalus, scattered areas of blood products/hemorrhage in resection tract. No evident infarct or new hemorrhage, incidental 5 mm R ICA aneurysm, no LVO. EEG obtained which was negative for seizure. Interval Events: Had worsening word finding difficulties again last night. EEG obtained and notable for seizure. LEV increased. I have personally performed a face to face assessment of the patient and have reviewed the PA/WOMEN'S LACROSSE COACH/Resident/Medical Student note. Plan of care discussed with: Provider, ICU Team, RN, and Consultants: MIKIE . Actions/Plans: Including but not necessarily limited to: Neurological #POD #2 s/p L pterional craniotomy for resection of sphenoid wing meningioma with decompression of lateral orbit and optic canal. -NSGY primary, appreciate ipnut -MRI brain w/wo pending -CTH, CTA H/N (04/27) Postoperative changes status post left middle cranial fossa/frontal pole extra-axial mass resection with interval improvement of pneumocephalus but scattered areas of interval worsening of blood products/hemorrhage within the resection tract as discussed above. 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 Image 313 series 5. No large vessel occlusion or severe short segment stenosis of the proximal [place] of Ram[place]rez. No flow-limiting stenosis on CTA neck. -Imaging reviewed by MIKIE -20 min EEG negative for seizures, monitor clinically closely. Had some worsening word-finding difficulties again last night and placed back on EEG. Impression: This bedside EEG was recorded from 8 on 04/27/2024 until 050 on 04/28 and is suggestive of an acute/subacute bilateral cortical dysfunction maximum in the left hemisphere with potential epileptogenicity in the left temporal region. An left frontotemporal EEG seizure was seen from 100 to 010 on 04/28/2024 with no apparent clinical signs. There is evidence of left frontotemporal breach, consistent with known history of craniotomy. There is also evidence for a severe diffuse encephalopathy. -Continue LEV 1.5 BID for now -Continue dexamethasone 4 mg Q6H with taper plans per NSGY -Post-op analgesia -Serial/close neurological monitoring CV #History of HTN -SBP <160 -Continue home lisinopril and propranolol for now -Continue home statin -Continuous telemetry and BP monitoring Pulmonary -SpO2 monitoring -Supplemental oxygen as indicated Renal -Trend I/O -Follow RFP/metabolic panel -Replete electrolytes as indicated GI -BRIDGE MANAGER consulted, appreciate input - soft and bite sized IDDSI level 6, thin liquids IDDSI level 0 -GI ppx -Bowel regimen Endocrine -Trend POCT glucose -SSI Heme -Trend CBC -SCDs, hold SQH until cleared by NSGY ID -Perioperative antibiotics completed -Trend temperature/WBC curve Signature: Claudio Verma MD [facility] Date: 04/28/2024 Time: 9:15 AM [facility] 04-28-2024 Note HNO ID: [id number] Author: ELADIA JENSEN PA-C Service: Neurosurgery Author Type: Physician Teacher [employer] Type: Progress Notes Filed: 04/28/2024 10:23 Note Text: Neurosurgery Progress Note SERVICE DATE: 04/28/2024 SUBJECTIVE: Awake and alert; RN present; more periods of appropriate speech; apparent seizure overnight; Keppra increased and BEM placed. Concern for dysphagia - awaiting ST assessment. Denies h/a this am. OBJECTIVE: Vitals: Temp (24hrs), Av.7 ?C (98.1 ?F), Min:36.1 ?C (97 ?F), Max:37.3 ?C (99.1 ?F) BP 121/93 Pulse 66 Temp 36.8 ?C (98.2 ?F) (Temporal) Resp 14 Ht 167.6 cm (5' 5.98) Wt 80.6 kg (177 lb 11.1 oz) SpO2 99% BMI 28.69 kg/m? O2 Therapy: Nasal Cannula IANDO: Date 04/27/24 0700 - 04/28/24 0659 04/28/24 07 - 04/29/24 0659 Shift 9135-3638 9280-0274 2645-1102 24 Hour Total 7844-9761 7784-5490 8514-9058 24 Hour Total INTAKE IV 1149 1149 Volume (mL) (NaCl 0.9% iv flush bag) 1149 1149 Shift Total 1149 1149 OUTPUT Urine 485 235 118 7829 275 275 Output ( Indwelling Urinary Catheter 04/26/24 0835 [facility] Armendar[place] 16 Fr) 485 818 773 4620 275 275 Shift Total 485 949 334 1271 275 275 Weight (kg) 78 78 80.6 80.6 80.6 80.6 80.6 80.6 MEDICATIONS Current Facility-Administered Medications Medication Dose Route Frequency levETIRAcetam 1,500 mg injection (KEPPRA) 1,500 mg INTRAVENOUS BID dextrose 15 gram/32 mL 15 g (TRUEPLUS) 15 g ORAL PRN Or glucagon 1 mg injection 1 mg INTRAMUSCULAR PRN Or dextrose 10% iv bolus 12.5 g INTRAVENOUS PRN insulin regular human injection (short acting) SUBCUTANEOUS w MEALS AND HS gabapentin 100 mg cap(s) (NEURONTIN) 100 mg ORAL BID fluorometholone 0.1 % 1 Drop ophthalmic drop (FML LIQUID FILM) 1 Drop LEFT EYE BID phosphorus 500 mg tab(s) (K PHOS NEUTRAL) 500 mg ORAL/FEEDING TUBE PRN(NO DISPENSE) acetaminophen 1,000 mg tab(s) (TYLENOL) 1,000 mg ORAL/FEEDING TUBE q 6 H oxyCODONE IR 5-10 mg tab(s) (ROXICODONE) 5-10 mg ORAL/FEEDING TUBE q [address] 40 mg tab(s) (PROTONIX) 40 mg ORAL DAILY (6 AM) ondansetron 4 mg tab(s) (ZOFRAN) 4 mg ORAL q 6 H PRN Or ondansetron (PF) 4 mg injection (ZOFRAN) 4 mg INTRAVENOUS q 6 H PRN magnesium hydroxide 400 mg/5 mL 30 mL (MOM) 30 mL ORAL/FEEDING TUBE DAILY PRN bisacodyl 10 mg suppository (DULCOLAX) 10 mg RECTAL DAILY PRN senna-docusate 8.6-50 mg 1 tablet (SENNA-S) 1 tablet ORAL BID hydrALAZINE 10 mg injection (APRESOLINE) 10 mg INTRAVENOUS q 6 H PRN dexAMETHasone sodium phosphate 4 mg injection (DECADRON) 4 mg INTRAVENOUS q 6 H simvastatin 40 mg tab(s) (ZOCOR) 40 mg ORAL DAILY lisinopril 10 mg tab(s) (ZESTRIL) 10 mg ORAL DAILY Labs: Recent Labs 04/28/24 0401 04/27/24 0320 04/26/24 1320 04/26/24 1018 NA -- 136 -- -- K -- 3.8 -- -- CHLOR -- 102 -- -- CO2 -- 25 -- -- BUN -- 20 -- -- CREAT -- 0.90 -- -- GLUC -- 167* -- -- ANION -- 9 -- -- CA -- 8.6 -- -- MG -- 1.8 -- -- P -- 3.3 -- -- WBC 14.25* 11.00 -- -- HB 9.5* 10.6* -- -- HCT 28.9* 31.4* -- -- PLT 156 164 -- -- INR -- 1.0 -- -- PCO2 -- -- 31.4* 32.6* PO2 -- -- 203* 180* BE -- -- 1 2 HCO3 -- -- 24.0 25.2 Exam: GENERAL: Awake and alert; NAD; cooperative; pleasant NEURO: Oriented to self; speech repetitive and slurred, expressive aphasia; follows commands easily; FU; no arm drift HEENT: dressing c/d/I (pt loosened it); perrl with mild rt neglect but will track across midline; mild persistent left temporal and periorbital edema LUNGS: Unlabored breathing CARDIAC: Rate and rhythm as above ASSESSMENT AND PLAN: 83 year old female s/p left frontal craniotomy for meningioma resection POD#2 - neuro as above - improving slowly - CTHx3 since admit (2 post op); MRIBx1 (awaiting post op MRI) - pain control: Tylenol, Oxy - BEM in place - sz mgmt per NSICU team - Willppra currently at 1500mg BID - continue Dex - will taper - PT/OT/ST - continue ICU today Parts of this note may have been copied from one of my previous notes and remain pertinent. The documentation has been reviewed and edited as necessary to support the clinical decision making for today's visit. SIGNATURE: Eladia Jensen PA-C PATIENT NAME: Reshma Evans DATE: April 28, 2024 TIME: 10:14 AM Pager: [phone] [facility] 04-27-2024 Note HNO ID: [id number] Author: ELADIA JENSEN PA-C Service: Neurosurgery Author Type: Physician [employer] Type: Plan of Care Filed: 04/27/2024 16:18 Note Text: Neurosurgery POC: Notified by RN that family is present and concerned about pt being drowsy and having difficulty speaking. On assessment shortly thereafter pt was wide awake and mostly appropriate. Having some WFD but otherwise following commands and answering questions. C/o headache. RN notified. Pt has not eaten much today but now endorses hunger. She is oriented to self, BD, family and 'hospital'. Has mild swelling to left temporal area (family states is actually improved). FU well. Pronator negative. Dressing dry and intact. Will continue in ICU tonight and if stable will transfer to [facility] Monday am. - encourage diet - PT/OT/ST assessments - pain control Eladia Jensen PA-C #[id number] [facility] 04-27-2024 Note HNO ID: [id number] Author: TRACY BARCENAS MD Service: Neuroendovascular Intervention Author Type: Physician Type: Plan of Care Filed: 04/28/2024 00:14 Note Text: Neuroendovascular Interventions 83 yo woman with HTN, DM, HLD, BPPV, KIMBERLY, SDH in 02/2024, left sphenoid wing meningioma admitted for elective meningioma resection. POD 1. CT/CTA done for postop intermittent word finding difficulty and delirium, verbal perseveration. Incidental 5 mm R ICA communicating segment aneurysm on CTA. Imaging reviewed. Sessile appearing, 5 mm x 2.7 mm. No definitive associated posterior communicating artery. Patient sleepy but easily arousable, opening eyes and following single step commands. EOMI. No facial asymmetry. Pleasant with intact fluency and conversational comprehension. Unrestricted UE and LE spontaneous movements and to commands. Given acute postoperative recovery issues, recommend outpatient visit for assessment and counseling for incidental aneurysm without high-risk morphology. My office will arrange for a 3-month new patient visit. Tracy Barcenas MD Staff, Neuroendovascular Intervention [facility] 04-27-2024 Note HNO ID: [id number] Author: CLAUDIO VERMA MD Service: Neurology ICU Author Type: Nurse Practitioner Type: Progress Notes Filed: 04/27/2024 14:38 Note Text: Attestation signed by Claudio Verma MD at 04/27/2024 2:38 PM ICU Progress Note (Staff Attestation) In brief, Reshma Evans is an 83 year old female with history of HTN, HLD, DM2 (HbA1c 6.1 04/2023), and KIMBERLY. The patient underwent L pterional craniotomy for resection of sphenoid wing meningioa, decompression of optic canal and lateral orbit on 04/26/24. She was admitted to the NSICU post-operatively. Post-op imaging notable for pneumocephalus for which she was started on intermittent high flow supplemental oxygen. She exhibited some word finding difficulty overnight, for which a CTH and CTA H/N were obtained, which were notable for post-operative changes with interval improvement of pneumocephalus, scattered areas of blood products/hemorrhage in resection tract. No evident infarct or new hemorrhage, incidental 5 mm R ICA aneurysm, no LVO. She was placed on EEG which was negative for seizures. Plan of care discussed with: Provider, ICU Team, RN, and MIKIE . Actions/Plans: Including but not necessarily limited to: Neurological #POD #1 s/p L pterional craniotomy for resection of sphenoid wing meningioma with decompression of lateral orbit and optic canal. -AIDENGY primary, appreciate ipnut -MRI brain w/wo pending -CTH, CTA H/N (04/27) Postoperative changes status post left middle cranial fossa/frontal pole extra-axial mass resection with interval improvement of pneumocephalus but scattered areas of interval worsening of blood products/hemorrhage within the resection tract as discussed above. 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 Image 313 series 5. No large vessel occlusion or severe short segment stenosis of the proximal shawnee of Ramírez. No flow-limiting stenosis on CTA neck. -Imaging reviewed by NSGY -20 min EEG negative for seizures, monitor clinically closely - consider BEM for exam fluctuations or signs of seizure -Continue LEV 1 gram BID -Continue dexamethasone 4 mg Q6H per NSGY -Post-op analgesia -Serial/close neurological monitoring CV #History of HTN -SBP <160 -Continue home lisinopril and propranolol for now -Continue home statin -Continuous telemetry and BP monitoring Pulmonary -SpO2 monitoring -Supplemental oxygen as indicated Renal -Trend I/O -Follow RFP/metabolic panel -Replete electrolytes as indicated -Discontinue MIVF when taking adequate PO GI -Continue diet as tolerated -GI ppx -Bowel regimen Endocrine -Trend POCT glucose -SSI Heme -Trend CBC -SCDs, hold SQH until cleared by NSGY ID -Perioperative antibiotics -Trend temperature/WBC curve Signature: Claudio Verma MD [facility] Date: 04/27/2024 Time: 10:40 AM SERVICE DATE: 04/27/2024 SERVICE TIME: 6:54 AM NEURO ICU PROGRESS NOTE DATE OF ADMISSION: 04/26/2024 Subjective Hospital Course: 04/27: s/p meningioma resections yesterday with Dr. Jeronimo. Post op CTH with pneumocephalus started on Q2h high flow oxygen. Had some confusion last night but was improving. Upon evaluation this morning was noted to be perseverating and seemed to have word finding difficulty. Also noted to have a tremor exacerbated by stimulation. Stat CTH and CTA h/n ordered. Events Since Last Note: as above Objective BP 152/71 Pulse 70 Temp 36.3 ?C (97.3 ?F) (Oral) Resp 13 Ht 167.6 cm (5' 5.98) Wt 79.1 kg (174 lb 6.1 oz) SpO2 99% BMI 28.16 kg/m? Weight change: Neuro: Alert repetitively says no to all questions PERRL, EOMI, VFF, edema to left eye lid with less eye opening Face symmetric, garbled speech, perseverates ?expressive aphasia Having some difficulties following commands but able to complete simple one step tasks with repeated direction FU 5/5 sustains AG, sensation intact to light touch GCS: Eyes: 4. Spontaneous Verbal: 4: Confused Motor: 6: Obeys Motor commands Total: 14 CV: RRR Pulm: CTA unlabored on RA GI/: soft +BS Skin/Extremities: Edema- No Peripheral pulses- Present all extremities Wounds/Drsgs- left head incision c/d/i Breakdown- No Diagnostic tests reviewed for today's visit: Most recent labs and imaging results. Lines, Drains, and Airways Line Duration Arterial Line/Sheath 04/26/24 0833 Right Radial <1 day Peripheral 04/26/24 0830 Left Forearm 18 Gauge <1 day Peripheral 04/27/24 Right Forearm 20 Gauge (more content not included)... [facility] 04-27-2024 Note HNO ID: [id number] Author: WYATT WSIFT PA-C Service: Neurosurgery Author Type: Physician Teacher Of The Deaf Type: Progress Notes Filed: 04/27/2024 04:59 Note Text: Neurosurgery Progress Note SERVICE DATE: 04/27/2024 SUBJECTIVE: Seen this am. Patient had been confused and had been improved but seen with nurse and then with NSICU TECHNICAL SALES ADVISOR and patient with some ? Delirium and ? Word finding difficulty. Able to answer her name to me, but then when seen with NSICU TECHNICAL SALES ADVISOR she was not. Able to intermittently answer location and month. Not able to now. Perseverates on someone's name but cannot discern. She says no when asked of headaches, nausea. OBJECTIVE: Vitals: Temp (24hrs), Av.4 ?C (97.5 ?F), Min:35.8 ?C (96.4 ?F), Max:36.9 ?C (98.4 ?F) BP 152/71 Pulse 61 Temp 36.4 ?C (97.6 ?F) (Oral) Resp 11 Ht 167.6 cm (5' 5.98) Wt 79.1 kg (174 lb 6.1 oz) SpO2 100% BMI 28.16 kg/m? O2 Therapy: Non-Rebreather Mask IANDO: Date 04/26/24 07 - 04/27/24 0659 04/27/24 07 - 04/28/24 0659 Shift 0846-0438 4433-8719 0545-0683 24 Hour Total 7315-9670 7288-5661 5926-1090 24 Hour Total INTAKE IV 2019 2520 Volume (mL) (ceFAZolin iv piggyback 2 g in D5W (iso-osmotic) 100 mL (ANCEF)) 20 20 Volume (mL) (lactated ringers iv infusion) 0138 657 1044 Volume (mL) (NaCl 0.9% iv infusion) 1000 1000 Shift Total 2019 500 2520 OUTPUT Urine 950 950 OR Urine Output 950 950 Blood 250 250 Estimated Blood loss 250 250 Shift Total 1200 1200 Weight (kg) 79.1 79.1 79.1 79.1 79.1 79.1 79.1 Neuro: GCS: Eyes: Opens eyes spontaneously (4) Verbal: Inappropriate (3) Motor: Obeys motor commands (6) Total: 13. AANDOx0-1 FS. TM EOMI PERRL. Speech dysarthric, perseverates on words Motor Exam- RUE: 5/5 LUE: 5/5 RLE: 5/5 LLE: 5/5 Sensation: SILT General: NAD. Awake HEENT: - L crani site telfa c/d/i CV: RRR on tele Pulm: even, unlabored GI/: abdomen soft, non-tender, non-distended Skin/Extremities: Grossly normal. Symmetrical. No edema, deformity, coloration changes. Peripheral pulses present all extremities Labs: Recent Labs 04/27/24 0320 WBC 11.00 HB 10.6* HCT 31.4* PLT 164 INR 1.0 APTT 26.1 NA 136 K 3.8 CHLOR 102 CO2 25 BUN 20 CREAT 0.90 GLUC 167* CA 8.6 MG 1.8 P 3.3 Recent Labs 04/26/24 1320 04/26/24 1018 04/26/24 0823 PCO2 31.4* 32.6* -- PO2 203* 180* -- BE 1 2 -1 HCO3 24.0 25.2 24.7 Diagnostic tests reviewed for today's visit: Most recent labs and imaging results. 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 Jeronimo Parts of this note may have been copied from one of my previous notes and remain pertinent. The documentation has been reviewed and edited as necessary to support the clinical decision making for today's visit. SIGNATURE: Wyatt Swift PA-C PATIENT NAME: Reshma Evans DATE: April 27, 2024 TIME: 12:48 AM Pager: [phone] [facility] 04-26-2024 Note HNO ID: [id number] Author: WYATT SWIFT PA-C Service: Neurosurgery Author Type: Physician Teacher Of The Deaf Type: Plan of Care Filed: 04/26/2024 18:52 Note Text: Neurosurgery Plan of Care Note: Discussed with Dr. Jeronimo [facility] results. Hi flow O2 2 hours on 2 hours off x24 hours ordered Wyatt Swift PA-C Department of Neurosurgery Pager: [phone] [facility] Pager: [phone] April 26, 2024 6:52 PM [facility] 04-26-2024 Note HNO ID: [id number] Author: JOLLY SANTORO APRN.FITNESS AND WELLNESS INSTRUCTOR Service: Anesthesiology Author Type: Nurse Railcar Switchman Type: Anesthesia Procedure Notes Filed: 04/26/2024 09:38 Note Text: ANESTHESIOLOGY PROCEDURE NOTE PIV General Information Procedure Start Time/Medication Administration: 04/26/2024 8:30 AM Procedure End Time: 04/26/2024 8:32 AM Patient Location: OR Staffing Anesthesiologist: Julianne Gleason MD Performed by: anesthesiologist Preparation Sterility Preparation: hand hygiene performed prior to procedure, mask used, skin prep agent completely dried prior to procedure Sterility Technique Not Completely Performed Due to Extreme Emergency: No Site Prep: alcohol Procedure Details Indication: need for IV access Needle Size/Type: 18 gauge angiocath Orientation: Left Location: Forearm Imaging Guidance Used: Yes Image in Chart: No SIGNATURE: Jolly Santoro APRN.FITNESS AND WELLNESS INSTRUCTOR PATIENT NAME: Reshma Evans DATE: April 26, 2024 TIME: 9:34 AM CSN: [id number] [facility] 04-26-2024 Note HNO ID: [id number] Author: JOLLY SANTORO APRN.FITNESS AND WELLNESS INSTRUCTOR Service: Anesthesiology Author Type: Nurse Railcar Switchman Type: Anesthesia Procedure Notes Filed: 04/26/2024 10:08 Note Text: ANESTHESIOLOGY PROCEDURE NOTE A-Line General Information Procedure Start Time/Medication Administration: 04/26/2024 8:33 AM Procedure End Time: 04/26/2024 8:37 AM Patient location during procedure: OR Timeout Performed Pre-procedure: timeout performed Indications: continuous blood pressure monitoring Staffing Anesthesiologist: Julianne Gleason MD SRNA: Marilin Elias SRNA Performed by: RAFAEL and anesthesiologist Preparation Sterility Preparation: hand hygiene performed prior to procedure, sterile gloves, drapes, and procedure tray, surgical cap used, mask used, skin prep agent completely dried prior to procedure Sterility Technique Not Completely Performed Due to Extreme Emergency: No Site Prep: chlorhexidine Procedure Details Catheter Type: arterial line Catheter Size: 20 G Catheter Length: 1.88 in Micropuncture Kit Used: No Guidewire Used: Yes Guidewire Removed Intact: Yes Laterality: right Site: radial artery Ultrasound Guided: Yes Image in Chart: No Sites: potential access sites evaluated, selected vessel patent, concurrent real time ultrasound visualization of vascular needle entry Vessel: target vessel identified and guidewire advanced into vessel Line Secured: Pasharm and tape Events Events: patient tolerated procedure well with no complications Comments For this procedure, I was physically present for this entire procedure. Jolly Santoro APRN.FITNESS AND WELLNESS INSTRUCTOR SIGNATURE: Jolly Santoro APRN.CRNA PATIENT NAME: Reshma Evans DATE: April 26, 2024 TIME: 9:31 AM CSN: [id number] [facility] 04-26-2024 Note HNO ID: [id number] Author: JOLLY SANTORO APRN.CRNA Service: Anesthesiology Author Type: Nurse Railcar Switchman Type: Anesthesia Procedure Notes Filed: 04/26/2024 10:09 Note Text: ANESTHESIOLOGY PROCEDURE NOTE Airway General Information Procedure Start Time/Medication Administration: 04/26/2024 8:27 AM Procedure End Time: 04/26/2024 8:27 AM Patient location during procedure: OR Timeout Performed Pre-procedure: timeout performed Consent Obtained: Yes Patient identity confirmed: arm band and patient Staffing FITNESS AND WELLNESS INSTRUCTOR: Jolly Santoro APRN.CRNA SRNA: Marilin Elias SRNA Performed by: RAFAEL Indications and Patient Condition Indications for airway management: anesthesia and airway protection Preoxygenated: yes anesthesia circuit Patient position: sniffing Method: asleep Cricoid Pressure: No Manual In-Line Stabilization: No Difficult Mask: No Final Airway Details Final airway type: endotracheal airway Final Endotracheal Airway: ETT Cuffed: yes Successful intubation technique: direct laryngoscopy Devices used: intubating stylet Endotracheal tube insertion site: oral Blade: Yordy Blade size: #3 ETT size (mm): 7.0 Measured from: lips Measurement (cm): 21 Placement verified by: chest auscultation and capnometry Cormack-Lehane Classification: grade I - full view of glottis Number of attempts at approach: 1 Failed airway: no Unrecognized esophageal intubation: no Airway not difficult SIGNATURE: Jolly Santoro APRN.CRNA PATIENT NAME: Reshma Evans DATE: April 26, 2024 TIME: 9:29 AM CSN: [id number] [facility] 04-26-2024 History of Present illness Narrative Radiology Service Progress Note DATE OF SERVICE: April 26, 2024 TIME: 7:19 AM PATIENT IDENTITY VERIFICATION COMPLETED USING TWO (2) STANDARD IDENTIFIERS: Name and Date of confirmed by patient verbally and Name and Date of confirmed by identification band. FALL SCREENING: Has the patient had 2 falls in the last year or 1 fall with injury or currently using an Ambulatory Assistive Device (Walker, Cane, Wheelchair, Crutches, etc.)? No PATIENT GENDER DATA: Female. status: : No status: NO. PATIENT RELEVANT IMPLANT DATA REVIEWED: Not Applicable PATIENT PRESENTS WITH AN IMPLANTABLE OR ATTACHED ASSISTED LIVING COORDINATOR: No ALLERGIES: Reviewed and unchanged CONTRAST ALLERGY: NO. EXAM: MRI - CONTRAST TYPE: GROUP II PERIPHERAL IV DATA: Inpatient - refer to LDA documentation RADIOLOGY DEPARTMENT: MR; Exam(s) Completed: Head: Routine Brain SIGNATURE: RT Miquel(R) PATIENT NAME: Reshma Evans DATE: April 26, 2024 TIME: 7:19 AM documented in this encounter [facility] 04-26-2024 Miscellaneous Notes Radiology Service Progress Note PATIENT NAME: Reshma Evans DATE OF SERVICE: April 26, 2024 TIME: 7:52 AM PATIENT IDENTITY VERIFICATION COMPLETED USING TWO (2) IDENTIFIERS: Name and Date of confirmed by patient verbally and Name and Date of confirmed by identification band. FALL SCREENING: Has the patient had 2 falls in the last year or 1 fall with injury or currently using an Ambulatory Assistive Device (Walker, Cane, Wheelchair, Crutches, etc.)? Inpatient: Screened on floor PATIENT GENDER DATA: Female. status: : No status: NO. PATIENT RELEVANT IMPLANT DATA REVIEWED: Not Applicable PATIENT PRESENTS WITH AN IMPLANTABLE OR ATTACHED ASSISTED LIVING COORDINATOR: No RADIOLOGY DEPARTMENT: CT; Exam(s) Completed: Brain PERIPHERAL IV DATA: Not applicable SIGNED BY: RT Jazz(Ronit) April 26, 2024 7:52 AM documented in this encounter [facility] 04-26-2024 Note HNO ID: [id number] Author: BLACKERT, PINA, RT(R) Service: Radiology Author Type: Technologist Type: Progress Notes Filed: 04/26/2024 07:20 Note Text: Radiology Service Progress Note DATE OF SERVICE: April 26, 2024 TIME: 7:19 AM PATIENT IDENTITY VERIFICATION COMPLETED USING TWO (2) STANDARD IDENTIFIERS: Name and Date of confirmed by patient verbally and Name and Date of confirmed by identification band. FALL SCREENING: Has the patient had 2 falls in the last year or 1 fall with injury or currently using an Ambulatory Assistive Device (Walker, Cane, Wheelchair, Crutches, etc.)? No PATIENT GENDER DATA: Female. status: : No status: NO. PATIENT RELEVANT IMPLANT DATA REVIEWED: Not Applicable PATIENT PRESENTS WITH AN IMPLANTABLE OR ATTACHED ASSISTED LIVING COORDINATOR: No ALLERGIES: Reviewed and unchanged CONTRAST ALLERGY: NO. EXAM: MRI - CONTRAST TYPE: GROUP II PERIPHERAL IV DATA: Inpatient - refer to LDA documentation RADIOLOGY DEPARTMENT: MR; Exam(s) Completed: Head: Routine Brain SIGNATURE: RT Miquel(R) PATIENT NAME: Reshma Evans DATE: April 26, 2024 TIME: 7:19 AM [facility] 04-26-2024 Progress note Formatting of t his note might be different from the original. Radiology Service Progress Note PATIENT NAME: Reshma Evans DATE OF SERVICE: April 26, 2024 TIME: 7:52 AM PATIENT IDENTITY VERIFICATION COMPLETED USING TWO (2) IDENTIFIERS: Name and Date of confirmed by patient verbally and Name and Date of confirmed by identification band. FALL SCREENING: Has the patient had 2 falls in the last year or 1 fall with injury or currently using an Ambulatory Assistive Device (Walker, Cane, Wheelchair, Crutches, etc.)? Inpatient: Screened on floor PATIENT GENDER DATA: Female. status: : No status: NO. PATIENT RELEVANT IMPLANT DATA REVIEWED: Not Applicable PATIENT PRESENTS WITH AN IMPLANTABLE OR ATTACHED ASSISTED LIVING COORDINATOR: No RADIOLOGY DEPARTMENT: CT; Exam(s) Completed: Brain PERIPHERAL IV DATA: Not applicable SIGNED BY: RT Jazz(R) April 26, 2024 7:52 AM [facility] 04-25-2024 Telephone encounter Note Contacted patient to remind them of their arrival time for surgery with Dr. Neymar Jeronimo on 04/26/24. Patient is to arrive at [facility] at 5:30 am for surgery at 7:30 am. Spoke with patient and they are aware of all arrival information. [facility] 04-25-2024 Miscellaneous Notes Contacted patient to remind them of their arrival time for surgery with Dr. Neymar Jeronimo on 04/26/24. Patient is to arrive at [facility] at 5:30 am for surgery at 7:30 am. Spoke with patient and they are aware of all arrival information. documented in this encounter [facility] 04-25-2024 Telephone encounter Note Spoke with patient, let her know she can take antibiotic tomorrow morning with a sip of water. Reminded her 6 am arrival for surgery. She was very thankful. Karli Cox RN [facility] 04-25-2024 Miscellaneous Notes Spoke with patient, let her know she can take antibiotic tomorrow morning with a sip of water. Reminded her 6 am arrival for surgery. She was very thankful. Karli Cox, RN Contacted patient to remind them of their arrival time for surgery with Dr. Neymar Jeronimo on 04/26/24. Patient is to arrive at [facility] at 6:00am for surgery at 8:00am. Spoke with patient and they are aware of all arrival information. documented in this encounter [facility] 04-25-2024 Telephone encounter Note Contacted patient to remind them of their arrival time for surgery with Dr. Neymar Jeronimo on 04/26/24. Patient is to arrive at [facility] at 6:00am for surgery at 8:00am. Spoke with patient and they are aware of all arrival information. [facility] 04-23-2024 Telephone encounter Note Patient is scheduled to undergo a craniotomy with Dr. Jeronimo on 04/26/2024. I called and spoke to patient's daughter Trina, returning her voice message. I educated her that her mother was placed on Macrobid bid x5 days for UTI. Patient is to take antiobotic as prescribed up until surgery and the inpatient team will manage while she is admitted. Educated to avoid NSAIDs, vitamins for 7 days prior to surgery as well. Patient is not on any blood thinners. Daughter verbalized understanding and was appreciaitive of all. She will contact the office with any questions or concerns. Myrtle Brand RN [facility] 04-23-2024 Miscellaneous Notes Patient is scheduled to undergo a craniotomy with Dr. Jeronimo on 04/26/2024. I called and spoke to patient's daughter Trina, returning her voice message. I educated her that her mother was placed on Macrobid bid x5 days for UTI. Patient is to take antiobotic as prescribed up until surgery and the inpatient team will manage while she is admitted. Educated to avoid NSAIDs, vitamins for 7 days prior to surgery as well. Patient is not on any blood thinners. Daughter verbalized understanding and was appreciaitive of all. She will contact the office with any questions or concerns. Myrtle Brand RN documented in this encounter [facility] 04-22-2024 Telephone encounter Note Called patient, let her know her pre - surgical urine showed e. coli , let her know we were going to call in antibiotic for this. She understood. Confirmed pharmacy. She is not experiencing UTI - symptoms when I talked with her on the phone. Refill(s) Requested: Requested Prescriptions Pending Prescriptions Disp Refills nitrofurantoin monohydrate and macrocrystal (MACROBID) 100 mg capsule 10 capsule 0 Sig: Take 1 capsule by mouth two times a day for 5 days. ALLERGIES No Known Allergies (home) Last Office Visit Date: 04/04/2024 Last Distance Health Visit: Visit date not found Future Appointment: 05/07/2024 The patients preferred pharmacy has been captured for this encounter? yes Request is for script(s) to be escript to pharmacy. Karli Cox RN [facility] 04-22-2024 Miscellaneous Notes Called patient, let her know her pre - surgical urine showed e. coli , let her know we were going to call in antibiotic for this. She understood. Confirmed pharmacy. She is not experiencing UTI - symptoms when I talked with her on the phone. Refill(s) Requested: Requested Prescriptions Pending Prescriptions Disp Refills nitrofurantoin monohydrate and macrocrystal (MACROBID) 100 mg capsule 10 capsule 0 Sig: Take 1 capsule by mouth two times a day for 5 days. ALLERGIES No Known Allergies (home) Last Office Visit Date: 04/04/2024 Last Distance Health Visit: Visit date not found Future Appointment: 05/07/2024 The patients preferred pharmacy has been captured for this encounter? yes Request is for script(s) to be escript to pharmacy. Karli Cox RN documented in this encounter [facility] 04-18-2024 Telephone encounter Note Trina Taylor, radiology scheduler let me know that patient's dtr called in asking why moms surgery was moved from Monday to Monday. I called Trina, patient's daughter back and let her know that due to OR scheduling/conflict that Reshma had to be moved to Monday. I left my phone # and ext to call back. Karli Cox RN [facility] 04-18-2024 Miscellaneous Notes Trina Taylor, radiology scheduler let me know that patient's dtr called in asking why moms surgery was moved from Monday to Monday. I called Trina, patient's daughter back and let her know that due to OR scheduling/conflict that Reshma had to be moved to Monday. I left my phone # and ext to call back. Karli Cox RN documented in this encounter [facility] 04-18-2024 Note HNO ID: [id number] Author: TANVI PATEL APRN.OUTDOOR ADVENTURE INSTRUCTOR Service: ? Author Type: Nurse Practitioner Type: Progress Notes Filed: 04/18/2024 13:58 Note Text: RED DOT follow-up DEANA PAT tenzin garza concerns - EKG - reviewed with anesthesia, Dr. Carlin. Okay to proceed with surgery. No further workup or optimization requested by anesthesia. ORANGE DOT follow-up I called the surgeon's office and left a voice mail message Shannan [phone] requesting copy of medical clearance be scanned into [employer] once they receive it. Gloria please follow up regarding Medical clearance. Thanks [facility] 04-18-2024 History of Present illness Narrative RED DOT follow-up DEANA PAT red greg concerns - EKG - reviewed with anesthesia, Dr. Carlin. Okay to proceed with surgery. No further workup or optimization requested by anesthesia. ORANGE DOT follow-up I called the surgeon's office and left a voice mail message Shannan [phone] requesting copy of medical clearance be scanned into [employer] once they receive it. Gloria please follow up regarding Medical clearance. Thanks documented in this encounter [facility] 04-18-2024 Note HNO ID: [id number] Author: ERICKA WINTERS APRN.CNP Service: Anesthesiology Author Type: Nurse Practitioner Type: Progress Notes Filed: 04/18/2024 12:43 Note Text: Summary: PAT CC DEANA please review ECG with Anesthesia. Patient has no cardiac history. Surgery scheduled 04/26/[address] Jeronimo under general anesthesia. ECG - NORMAL SINUS RHYTHM POSSIBLE ANTERIOR INFARCT , AGE UNDETERMINED ABNORMAL ECG Assessment Patient has the following medical conditions which may affect howard-operative course: Benign meningioma (HCC) Surgery scheduled 04/26/24 Hyperlipidemia Stable on statin Instructed to take DOS HTN (hypertension) On Lisinopril, propranolol, HCTZ Instructed to hold lisinopril DOS and take HCTZ and propranolol DOS Pre-op examination Medical conditions which may affect the perioperative course were address in today's visit. Type 2 diabetes mellitus without complication, without long-term current use of insulin (HCC) Reports diet controlled Used to take medications - not on any medication for more than 20 years KIMBERLY (obstructive sleep apnea) Reports no need for CPAP for a long time , more than 20 years Marquez Activity Status Index: METS: Walk a block or two on level ground (2.75 METs) DASI Score: 2.75 Patient denies any chest pain or undue shortness of breath with the above physical activity. Clinical Frailty Scale: 3. Well, with treated comorbid disease [facility] 04-18-2024 History and physical note Images from the original note were not included. [facility] HISTORY AND PHYSICAL EXAMINATION SERVICE DATE: 04/18/2024 SERVICE TIME: 10:40 AM PRIMARY CARE PHYSICIAN: Zoë Kaplan NP, OUTDOOR ADVENTURE INSTRUCTOR Assessment Patient has the following medical conditions which may affect howard-operative course: Benign meningioma (HCC) Surgery scheduled 04/26/24 Hyperlipidemia Stable on statin Instructed to take DOS HTN (hypertension) On Lisinopril, propranolol, HCTZ Instructed to hold lisinopril DOS and take HCTZ and propranolol DOS Pre-op examination Medical conditions which may affect the perioperative course were address in today's visit. Type 2 diabetes mellitus without complication, without long-term current use of insulin (HCC) Reports diet controlled Used to take medications - not on any medication for more than 20 years KIMBERLY (obstructive sleep apnea) Reports no need for CPAP for a long time , more than 20 years Marquez Activity Status Index: METS: Walk a block or two on level ground (2.75 METs) DASI Score: 2.75 Patient denies any chest pain or undue shortness of breath with the above physical activity. Clinical Frailty Scale: 3. Well, with treated comorbid disease ARISCAT Score: Age: >80 Preoperative SpO2: >=96% Respiratory infection in the last month: No Preoperative anemia: No Surgical incision: peripheral Duration of surgery: >3 hrs Emergency procedure: No ARISCAT Score: 39 ANESTHESIA FINDINGS: Intubation History: No history of difficult intubation. No abnormal airway history Significant Anesthesia Considerations: none Airway History: No history of difficult airway No abnormal airway history I - PHYSICAL EVALUATION AIRWAY Patient intubated: No. DENTAL Dental findings: teeth intact. Dentures, upper: partial. II - ANESTHESIA PLAN Anesthetic Plan: general Beta Zully Monitoring Plan Post Procedure Analgesic Plan Prepared for Surgery: CONSULTS: The following consults have been initiated at this time: primary care/internal medicine. Planned Anesthetic: general The Following Tests/Procedures Have Been Initiated: No orders of the defined types were placed in this encounter. REASON FOR VISIT: Reshma Evans is a 83 year old female who is scheduled for Procedure(s): CRANIOTOMY FOR EXCISION SUPRATENTORIAL MENINGIOMA (Left) MICROSURGICAL TECHNIQUE FOR CRANIOTOMY PROCEDURES (Left) [employer] STEREOTACTIC COMPUTER-ASSISTED NAVIGATIONAL PROCEDURE CRANIAL (Left) at the request of Dr. Neymar Jeronimo for routine H&P. My final recommendation will be communicated back to the requesting physician by way of shared medical record or letter. Subjective The patient has the following: COVID-19 Immunization Status Overdue - Covid-19 Vaccine ( season) Overdue since 03/10/2024 10/23/2020 Imm Admin: COVID-19 original vaccine, full dose, monovalent (MODERNA) 09/09/2020 Imm Admin: COVID-19 original vaccine, full dose, monovalent (MODERNA) CHIEF COMPLAINT: The reason for this visit is to perform a comprehensive review of the patient's past medical history, assess their current health status and obtain any additional testing required based on anesthesia guidelines. We will also identify any potential anesthesia problems or contraindications to the planned procedure. HPI: Patient is a 83 year old female who presents for pre surgical testing. Patient reports a history of meningioma, s/p left frontal craniotomy for meningioma resection in 09/24/10. Reports a vision changes in the left eye. 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 There is edema noted within the anterior left temporal lobe which is new/more pronounced than on the MRI dated 02/07/2024. After discussing with surgeon, patient agrees to surgical intervention. Risk and benefits discussed by surgeon. Patient denies any other problems or concerns at this time. REVIEW OF SYSTEMS: General: Negative for: fever. Neurological: Negative for: delirium, dementia, seizures, TIA and strokes. Respiratory: Positive for: obstructive sleep apnea and CPAP/BiPAP noncompliant (reports had it a log time ago, no need for CPAP anymore). Negative for: asthma, COPD, pneumonia within 6 weeks and URI < 2 weeks. Cardiovascular: Positive for: hyperlipidemia and hypertension Negative for: atrial fibrillation, CAD, chest pain, DVT/PE and recent [place]. GI: Negative for: abdominal pain, dysphagia, hepatitis, liver disease, nausea, vomiting and ETOH >2 drinks/day. : Negative for: dysuria, hematuria, urinary incontinence and renal failure. EXPANDED DUTY DENTAL ASSISTANT: Negative for abnormal vaginal bleeding, abnormal vaginal discharge. Endocrine: Positive for: diabetes mellitus. Patient's diabetes mellitus is controlled by diet. Negative for: hypothyroidism. Hematology: Negative for: anemia, factor V Leiden, hemophilia and von Willebrand disease. Oncology: No history of CA metastasis, chemo within 30 days, or radiotherapy within 90 days. No history of oncological symptoms or problems. Psych: No history of psychiatric symptoms or problems. Negative for: anxiety and depression. Musculoskeletal: Negative for joint pain or swelling, back pain or muscle pain. Skin: Negative for lesions, rash and itching. PAST MEDICAL HISTORY Diagnosis Date Benign meningioma (HCC) BPPV (benign paroxysmal positional vertigo) Diabetes (HCC) HTN (hypertension) 02/14/2024 Hyperlipidemia 02/14/2024 Obesity SDH (subdural hematoma) (HCC) 02/13/2024 Sleep apnea PAST SURGICAL HISTORY Procedure Laterality Date ARTHRP KNE CONDYLE&PLATU MEDIAL&LAT COMPARTMENTS 07/10/1979 right PAST SURGICAL HISTORY OF Bilateral total knees RECONSTRUCT CLEFT PALATE Infancy RECONSTRUCTION ROTATOR CUFF AVULSION CHRONIC 07/10/2007 right REPAIR CLEFT LIP Infancy REVISE MEDIAN N/CARPAL TUNNEL SURG FAMILY HISTORY Problem Relation Age of Onset other (leukemia [Other]) Sister 49 other (esophageal cancer [Other]) Brother 62 Social History Tobacco Use Smoking status: Never Smokeless tobacco: Never Vaping Use Vaping status: Never Used Substance Use Topics Alcohol use: Not Currently Comment: occasional/social Drug use: No Prior to Admission medications as of 04/18/24 1037 Medication Sig Last Dose Taking nystatin (MYCOSTATIN) powder Taking Yes vitamin E, dl,tocopheryl acet, (VITAMIN E, DL, ACETATE,) 180 mg (400 unit) capsule Take 180 mg by mouth. Taking Yes multivitamin/iron/folic acid (CENTRUM ORAL) Take by mouth. Taking Yes hydroCHLOROthiazide 12.5 mg tablet Take 12.5 mg by mouth once daily. Taking Yes gabapentin (NEURONTIN) 100 mg capsule Take 100 mg by mouth two times a day. Taking Yes lisinopril (ZESTRIL) 10 mg tablet Take 10 mg by mouth once daily. Taking Yes propranolol (INDERAL) 20 mg tablet Take 20 mg by mouth two times a day. Taking Yes Cunningham-3 Fatty Acids-Vitamin E (FISH OIL) 1,000 mg cap Take 1 capsule by mouth. Taking Yes simvastatin (ZOCOR) 40 mg tablet Take by mouth. Taking Yes Cholecalciferol, Vitamin D3, (VITAMIN D) 1,000 unit ORAL Cap Take one(1) tablet daily. Taking Yes ascorbic acid (VITAMIN C) 500 mg ORAL tablet Take one(1) tablet daily. Taking Yes CALCIUM/MAG OXIDE/VITAMIN D3 (CORAL CALCIUM PLUS ORAL) pt not sure of dosage takes 1 daily Taking Yes fluorometholone (FML LIQUID FILM) 0.1 % ophthalmic suspension Use 1 Drop in the left eye two times a day. No medication comments found. ALLERGIES No Known Allergies Objective PHYSICAL EXAM: General: alert and oriented and healthy appearance. Pertinent negatives noted - not distressed. Skin: normal color, no rash or lesions. HEENT: No additional findings for patient's neck. Cardiovascular: regular rate and rhythm, normal S1 and S2, no rub, murmurs, or gallop. Respiratory: normal breath sounds, no wheezes or crackles. No chest wall deformity or tenderness. Abdomen: bowel sounds present and soft. Pertinent negatives noted - not tender. Extremities: no deformity, no edema or tenderness, no joint swelling or clubbing. Neurological: normal cognition and motor skills. Gait normal. No weakness or sensory deficit. Positive for tremors. PAIN ASSESSMENT: VITALS: BP 109/71 Pulse 81 Temp 97.2 Resp 16 Ht 5' 6 (1.68m) Wt 175 lb (79.4kg) SpO2 100% BMI 28.26 kg/(m^2). Diagnostic tests reviewed for today's visit: Lab Value Units Date High Low HB 12.4 g/dL 02/14/2024 15.5 11.5 HCT 37.4 % 02/14/2024 46.0 36.0 WBC 6.47 k/uL 02/14/2024 11.00 3.70 PLT 178 k/uL 02/14/2024 400 150 NA 141 mmol/L 02/14/2024 144 136 K 3.8 mmol/L 02/14/2024 5.1 3.7 GLUC 153 mg/dL 02/14/2024 99 74 BUN 21 mg/dL 02/14/2024 21 7 CREAT 0.98 mg/dL 02/14/2024 0.96 0.58 PTSEC 11.2 sec 02/13/2024 13.0 9.7 INR 1.0 no uni* 02/13/2024 1.3 0.9 APTT 25.9 sec 02/13/2024 32.4 23.0 ALT 8 U/L 02/13/2024 38 7 AST 17 U/L 02/13/2024 35 13 TBILI 0.7 mg/dL 02/13/2024 1.3 0.2 TSH No results within date range. Lab Value Units Date High Low HCGQT No results within date range. UHCG No results within date range. HCG, BODY* No results within date range. Lab Value Units Date High Low ABORHD No results within date range. ABSCREEN No results within date range. No results found for: HBA1C Recent Results (from the past 8760 hour(s)) ECG COMPLETE Collection Time: 04/18/24 10:59 AM Result Value Ventricular Rate 78 Atrial Rate 78 P-R Interval 198 QRS Duration 100 QT Interval 398 QTC Calculation (Bazett) 453 Calculated P Lavinia 39 Calculated R Lavinia -22 Calculated T Lavinia -2 Impression NORMAL SINUS RHYTHM POSSIBLE ANTERIOR INFARCT , AGE UNDETERMINED ABNORMAL ECG NO PREVIOUS ECGS AVAILABLE No results found for this or any previous visit (from the past 70653 hour(s)). Implantable Devices: bilateral total knees Patient denies Blood thinners The Following Tests/Procedures Have Been Initiated: ECG, CXR, MRSA, PT/PTT, UC, UA, CMP, T&S, CBC - ordered per surgeon in Epic Antibody screen - Negative Assessment/Plan Diagnosis: Benign meningioma (HCC) [D32.9] PLAN Planned Procedure: Procedure(s): CRANIOTOMY FOR EXCISION SUPRATENTORIAL MENINGIOMA (Left) MICROSURGICAL TECHNIQUE FOR CRANIOTOMY PROCEDURES (Left) [employer] STEREOTACTIC COMPUTER-ASSISTED NAVIGATIONAL PROCEDURE CRANIAL (Left) Instructions Given to Patient: Instructions located in the after visit summary. Patient given verbal and written preop instructions and voices comprehension and compliance. I spent a total of 60 minutes on the date of the service which included preparing to see the patient, [id number] patient care, completing clinical documentation, obtaining and/or reviewing separately obtained history, performing a medically appropriate examination, and counseling and educating the patient/family/caregiver. SIGNATURE: Ericka Winters APRN.CNP PATIENT NAME: Reshma Evans DATE: April 18, 2024 TIME: 10:40 AM PAGER/CONTACT #: [facility] 04-18-2024 History and physical note Images from the original note were not included. [facility] Pre[facility]Anesthesia Consultation Clinic HISTORY AND PHYSICAL EXAMINATION SERVICE DATE: 04/18/2024 SERVICE TIME: 10:40 AM PRIMARY CARE PHYSICIAN: Zoë Kaplan NP, OUTDOOR ADVENTURE INSTRUCTOR Assessment Patient has the following medical conditions which may affect howard-operative course: Benign meningioma (HCC) Surgery scheduled 04/26/24 Hyperlipidemia Stable on statin Instructed to take DOS HTN (hypertension) On Lisinopril, propranolol, HCTZ Instructed to hold lisinopril DOS and take HCTZ and propranolol DOS Pre-op examination Medical conditions which may affect the perioperative course were address in today's visit. Type 2 diabetes mellitus without complication, without long-term current use of insulin (HCC) Reports diet controlled Used to take medications - not on any medication for more than 20 years KIMBERLY (obstructive sleep apnea) Reports no need for CPAP for a long time , more than 20 years Marquez Activity Status Index: METS: Walk a block or two on level ground (2.75 METs) DASI Score: 2.75 Patient denies any chest pain or undue shortness of breath with the above physical activity. Clinical Frailty Scale: 3. Well, with treated comorbid disease ARISCAT Score: Age: >80 Preoperative SpO2: >=96% Respiratory infection in the last month: No Preoperative anemia: No Surgical incision: peripheral Duration of surgery: >3 hrs Emergency procedure: No ARISCAT Score: 39 ANESTHESIA FINDINGS: Intubation History: No history of difficult intubation. No abnormal airway history Significant Anesthesia Considerations: none Airway History: No history of difficult airway No abnormal airway history I - PHYSICAL EVALUATION AIRWAY Patient intubated: No. DENTAL Dental findings: teeth intact. Dentures, upper: partial. II - ANESTHESIA PLAN Anesthetic Plan: general Beta Zully Monitoring Plan Post Procedure Analgesic Plan Prepared for Surgery: CONSULTS: The following consults have been initiated at this time: primary care/internal medicine. Planned Anesthetic: general The Following Tests/Procedures Have Been Initiated: No orders of the defined types were placed in this encounter. REASON FOR VISIT: Reshma Evans is a 83 year old female who is scheduled for Procedure(s): CRANIOTOMY FOR EXCISION SUPRATENTORIAL MENINGIOMA (Left) MICROSURGICAL TECHNIQUE FOR CRANIOTOMY PROCEDURES (Left) [employer] STEREOTACTIC COMPUTER-ASSISTED NAVIGATIONAL PROCEDURE CRANIAL (Left) at the request of Dr. Neymar Jeronimo for routine H&P. My final recommendation will be communicated back to the requesting physician by way of shared medical record or letter. Subjective The patient has the following: COVID-19 Immunization Status Overdue - Covid-19 Vaccine ( season) Overdue since 03/10/2024 10/23/2020 Imm Admin: COVID-19 original vaccine, full dose, monovalent (MODERNA) 09/09/2020 Imm Admin: COVID-19 original vaccine, full dose, monovalent (MODERNA) CHIEF COMPLAINT: The reason for this visit is to perform a comprehensive review of the patient's past medical history, assess their current health status and obtain any additional testing required based on anesthesia guidelines. We will also identify any potential anesthesia problems or contraindications to the planned procedure. HPI: Patient is a 83 year old female who presents for pre surgical testing. Patient reports a history of meningioma, s/p left frontal craniotomy for meningioma resection in 09/24/10. Reports a vision changes in the left eye. 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 There is edema noted within the anterior left temporal lobe which is new/more pronounced than on the MRI dated 02/07/2024. After discussing with surgeon, patient agrees to surgical intervention. Risk and benefits discussed by surgeon. Patient denies any other problems or concerns at this time. REVIEW OF SYSTEMS: General: Negative for: fever. Neurological: Negative for: delirium, dementia, seizures, TIA and strokes. Respiratory: Positive for: obstructive sleep apnea and CPAP/BiPAP noncompliant (reports had it a log time ago, no need for CPAP anymore). Negative for: asthma, COPD, pneumonia within 6 weeks and URI < 2 weeks. Cardiovascular: Positive for: hyperlipidemia and hypertension Negative for: atrial fibrillation, CAD, chest pain, DVT/PE and recent [place]. GI: Negative for: abdominal pain, dysphagia, hepatitis, liver disease, nausea, vomiting and ETOH >2 drinks/day. : Negative for: dysuria, hematuria, urinary incontinence and renal failure. EXPANDED DUTY DENTAL ASSISTANT: Negative for abnormal vaginal bleeding, abnormal vaginal discharge. Endocrine: Positive for: diabetes mellitus. Patient's diabetes mellitus is controlled by diet. Negative for: hypothyroidism. Hematology: Negative for: anemia, factor V Leiden, hemophilia and von Willebrand disease. Oncology: No history of CA metastasis, chemo within 30 days, or radiotherapy within 90 days. No history of oncological symptoms or problems. Psych: No history of psychiatric symptoms or problems. Negative for: anxiety and depression. Musculoskeletal: Negative for joint pain or swelling, back pain or muscle pain. Skin: Negative for lesions, rash and itching. PAST MEDICAL HISTORY Diagnosis Date Benign meningioma (HCC) BPPV (benign paroxysmal positional vertigo) Diabetes (HCC) HTN (hypertension) 02/14/2024 Hyperlipidemia 02/14/2024 Obesity SDH (subdural hematoma) (HCC) 02/13/2024 Sleep apnea PAST SURGICAL HISTORY Procedure Laterality Date ARTHRP KNE CONDYLE&PLATU MEDIAL&LAT COMPARTMENTS 07/10/1979 right PAST SURGICAL HISTORY OF Bilateral total knees RECONSTRUCT CLEFT PALATE Infancy RECONSTRUCTION ROTATOR CUFF AVULSION CHRONIC 07/10/2007 right REPAIR CLEFT LIP Infancy REVISE MEDIAN N/CARPAL TUNNEL SURG FAMILY HISTORY Problem Relation Age of Onset other (leukemia [Other]) Sister 49 other (esophageal cancer [Other]) Brother 62 Social History Tobacco Use Smoking status: Never Smokeless tobacco: Never Vaping Use Vaping status: Never Used Substance Use Topics Alcohol use: Not Currently Comment: occasional/social Drug use: No Prior to Admission medications as of 04/18/24 1037 Medication Sig Last Dose Taking nystatin (MYCOSTATIN) powder Taking Yes vitamin E, dl,tocopheryl acet, (VITAMIN E, DL, ACETATE,) 180 mg (400 unit) capsule Take 180 mg by mouth. Taking Yes multivitamin/iron/folic acid (CENTRUM ORAL) Take by mouth. Taking Yes hydroCHLOROthiazide 12.5 mg tablet Take 12.5 mg by mouth once daily. Taking Yes gabapentin (NEURONTIN) 100 mg capsule Take 100 mg by mouth two times a day. Taking Yes lisinopril (ZESTRIL) 10 mg tablet Take 10 mg by mouth once daily. Taking Yes propranolol (INDERAL) 20 mg tablet Take 20 mg by mouth two times a day. Taking Yes Cunningham-3 Fatty Acids-Vitamin E (FISH OIL) 1,000 mg cap Take 1 capsule by mouth. Taking Yes simvastatin (ZOCOR) 40 mg tablet Take by mouth. Taking Yes Cholecalciferol, Vitamin D3, (VITAMIN D) 1,000 unit ORAL Cap Take one(1) tablet daily. Taking Yes ascorbic acid (VITAMIN C) 500 mg ORAL tablet Take one(1) tablet daily. Taking Yes CALCIUM/MAG OXIDE/VITAMIN D3 (CORAL CALCIUM PLUS ORAL) pt not sure of dosage takes 1 daily Taking Yes fluorometholone (FML LIQUID FILM) 0.1 % ophthalmic suspension Use 1 Drop in the left eye two times a day. No medication comments found. ALLERGIES No Known Allergies Objective PHYSICAL EXAM: General: alert and oriented and healthy appearance. Pertinent negatives noted - not distressed. Skin: normal color, no rash or lesions. HEENT: No additional findings for patient's neck. Cardiovascular: regular rate and rhythm, normal S1 and S2, no rub, murmurs, or gallop. Respiratory: normal breath sounds, no wheezes or crackles. No chest wall deformity or tenderness. Abdomen: bowel sounds present and soft. Pertinent negatives noted - not tender. Extremities: no deformity, no edema or tenderness, no joint swelling or clubbing. Neurological: normal cognition and motor skills. Gait normal. No weakness or sensory deficit. Positive for tremors. PAIN ASSESSMENT: VITALS: BP 109/71 Pulse 81 Temp 97.2 Resp 16 Ht 5' 6 (1.68m) Wt 175 lb (79.4kg) SpO2 100% BMI 28.26 kg/(m^2). Diagnostic tests reviewed for today's visit: Lab Value Units Date High Low HB 12.4 g/dL 02/14/2024 15.5 11.5 HCT 37.4 % 02/14/2024 46.0 36.0 WBC 6.47 k/uL 02/14/2024 11.00 3.70 PLT 178 k/uL 02/14/2024 400 150 NA 141 mmol/L 02/14/2024 144 136 K 3.8 mmol/L 02/14/2024 5.1 3.7 GLUC 153 mg/dL 02/14/2024 99 74 BUN 21 mg/dL 02/14/2024 21 7 CREAT 0.98 mg/dL 02/14/2024 0.96 0.58 PTSEC 11.2 sec 02/13/2024 13.0 9.7 INR 1.0 no uni* 02/13/2024 1.3 0.9 APTT 25.9 sec 02/13/2024 32.4 23.0 ALT 8 U/L 02/13/2024 38 7 AST 17 U/L 02/13/2024 35 13 TBILI 0.7 mg/dL 02/13/2024 1.3 0.2 TSH No results within date range. Lab Value Units Date High Low HCGQT No results within date range. UHCG No results within date range. HCG, BODY* No results within date range. Lab Value Units Date High Low ABORHD No results within date range. ABSCREEN No results within date range. No results found for: HBA1C Recent Results (from the past 8760 hour(s)) ECG COMPLETE Collection Time: 04/18/24 10:59 AM Result Value Ventricular Rate 78 Atrial Rate 78 P-R Interval 198 QRS Duration 100 QT Interval 398 QTC Calculation (Bazett) 453 Calculated P Lavinia 39 Calculated R Lavinia -22 Calculated T Lavinia -2 Impression NORMAL SINUS RHYTHM POSSIBLE ANTERIOR INFARCT , AGE UNDETERMINED ABNORMAL ECG NO PREVIOUS ECGS AVAILABLE No results found for this or any previous visit (from the past 56378 hour(s)). Implantable Devices: bilateral total knees Patient denies Blood thinners The Following Tests/Procedures Have Been Initiated: ECG, CXR, MRSA, PT/PTT, UC, UA, CMP, T&S, CBC - ordered per surgeon in Epic Antibody screen - Negative Assessment/Plan Diagnosis: Benign meningioma (HCC) [D32.9] PLAN Planned Procedure: Procedure(s): CRANIOTOMY FOR EXCISION SUPRATENTORIAL MENINGIOMA (Left) MICROSURGICAL TECHNIQUE FOR CRANIOTOMY PROCEDURES (Left) [employer] STEREOTACTIC COMPUTER-ASSISTED NAVIGATIONAL PROCEDURE CRANIAL (Left) Instructions Given to Patient: Instructions located in the after visit summary. Patient given verbal and written preop instructions and voices comprehension and compliance. I spent a total of 60 minutes on the date of the service which included preparing to see the patient, [id number] patient care, completing clinical documentation, obtaining and/or reviewing separately obtained history, performing a medically appropriate examination, and counseling and educating the patient/family/caregiver. SIGNATURE: Ericka Winters APRN.CNP PATIENT NAME: Reshma Evans DATE: April 18, 2024 TIME: 10:40 AM PAGER/CONTACT #: documented in this encounter [facility] 04-16-2024 Instructions Ericka Winters APRN.NELLY - 04/16/2024 3:08 PM EDT PATIENT PREOPERATIVE INSTRUCTIONS Your surgeon has scheduled for your procedure at this surgery center: [facility]: [phone], [address], [place] [address] Please read below carefully for your personalized instructions. Surgery Date:04/26/24 Your surgeon's office will provide you with your ARRIVAL TIME for surgery. - If you have not received an arrival time by the afternoon before your surgery date, please follow up with your surgeon's office. - If you are scheduled for Monday surgery, please make sure you have your arrival time by Monday afternoon. - Please be aware that emergency situations arise, which may delay or change your surgical time. If this happens, your surgeon's office will notify you as soon as possible and regret any inconvenience. Dietary Restrictions: - Nothing to eat or drink after midnight except for a sip of water with approved medications. Please stop ALL clear liquids 2 hours prior to your ARRIVAL TIME. This is important because otherwise your surgery may have to be cancelled. Blood Thinning Medications: - Stop NSAIDS (Ibuprofen, Advil, Aleve, Motrin, Celebrex, Mobic, etc.) 7 days before surgery, or as directed by your surgeon. You may take Tylenol (Acetaminophen) or any of your pain medications that do not contain aspirin or NSAIDS as needed. IF YOU TAKE ANY OF THE FOLLOWING BLOOD THINNERS, PLEASE CONTACT YOUR SURGEON AND THE PHYSICIAN WHO PRESCRIBES IT FOR YOU IN ORDER TO GET PERIOPERATIVE INSTRUCTIONS SOON POSSIBLE. BLOOD THINNERS: Aspirin , Coumadin, Plavix, Eliquis, Pradaxa, Xarelto, Lovenox, Brilinta, Effient, Savaysa, Arixtra, etc - Stop Vitamin E, fish oil, multivitamins, Marijuana, CBD oil and other over the counter herbals and dietary supplements 7 days before surgery. - This would not apply to cancer patients who are prescribed Marinol or any other prescription form on marijuana or CBD. Medications: Pre Surgery Med Instructions Medication instructions ascorbic acid (VITAMIN C) 500 mg ORAL tablet Stop 7 days before surgery CALCIUM/MAG OXIDE/VITAMIN D3 (CORAL CALCIUM PLUS ORAL) Continue until night before surgery Cholecalciferol, Vitamin D3, (VITAMIN D) 1,000 unit ORAL Cap Continue until night before surgery gabapentin (NEURONTIN) 100 mg capsule Continue until night before surgery hydroCHLOROthiazide 12.5 mg tablet Take morning of surgery with sip of water, no other fluids lisinopril (ZESTRIL) 10 mg tablet HOLD the morning of surgery multivitamin/iron/folic acid (CENTRUM ORAL) Stop 7 days before surgery nystatin (MYCOSTATIN) powder Continue until night before surgery Cunningham-3 Fatty Acids-Vitamin E (FISH OIL) 1,000 mg cap Stop 7 days before surgery propranolol (INDERAL) 20 mg tablet Take morning of surgery with sip of water, no other fluids simvastatin (ZOCOR) 40 mg tablet Continue until night before surgery vitamin E, dl,tocopheryl acet, (VITAMIN E, DL, ACETATE,) 180 mg (400 unit) capsule Stop 7 days before surgery HOLD - EDDIE inhibitors (Angiotensin-converting enzyme inhibitors) and ARBs (Angiotensin II receptor blockers) Day of surgery. Use inhalers as prescribed. Please bring inhalers. Weight loss medications: - Sympathomimetics such as Adipex-P (Phentermine): Stop 4 days before surgery. - Contrave (Naltrexone/Bupropion) Hold 2-3 days. - Qsymia (Phentermine/Topiramate - Please contact your prescribing provider for Pre op directions. (Depending on the patients dose this medication may need tapered off. They should get pre-op directions from their prescribing provider.) - GLP-1 Agonists (oral and injectables) Hold 7 days. Patients with Diabetes Mellitus: Please follow up with the provider that manages your diabetes and how to prepare you for surgery. Do not take the following medications Morning of surgery: Trajenta, Metformin, Actos/Pioglitazone and Amaryl/Glimepiride. For the following Medications, please HOLD 2 DAYS PRIOR TO SURGERY: Glucotrol/Glipizide, Januvia/Sitagliptin, Glyburide, Prandin/Repaglinide, Starlix/Nateglinide, Symlin/Pramlintide For the following Medications, please HOLD 3 DAYS PRIOR TO SURGERY: Canagliflozin/Invokana, Dapagliflozin/Farxiga, Empagliflozin/Jardiance, Invokamet/ canagliflozin and metformin, Xigduo XR/ dapagliglozin and metformin, Glyxambi/ empagliflozin and metformin, Syndardy/ empagliflozin and metformin For the following Medications, please HOLD 4 DAYS PRIOR TO SURGERY: Ertugliflozin/Steglatro For the following Medications, please HOLD 7 DAYS PRIOR TO SURGERY: GLP-1 AGONIST: Adlyxin (lixisenatide), Bydureon BCise (exenatide suspension), Byetta (exenatide), Mounjaro (tirzepatide), Ozempic (semaglutide injection), Rybelsus (semaglutide tablets), Tanzeum (albiglutide), Trulicity (dulaglutide), Victoza (liraglutide), Wegovy (semaglutide), Saxenda (liraglutide) Insulin Medication Instructions: Please follow up with the provider that manages your Insulin and how to prepare you for surgery. If you start any new medications after today's visit, please contact the surgeon's office. Important Reminders: - If you have a stimulator, implant or pump that requires a remote, please bring the remote with you day of surgery. - If you use CPAP/BIPAP, bring the machine with you to the surgery center. - If you are prescribed inhalers for breathing, continue using them AND bring them to the surgery center. - Candy, mints, gum and tobacco products are NOT permitted the morning of surgery. - Hearing aids, dentures and glasses may be worn the morning of surgery. - NO jewelry, body piercings, makeup, hairpins or contacts are to be worn the day of surgery. - Oral hygiene and a shower or bath is required the evening before or the morning of surgery. - NO lotion, creams, powders or deodorants on the skin the day of surgery. - Wear loose, comfortable clothing that will accommodate bandages. - Your length of stay will be determined by your surgeon. - You will need to have someone else (Family or friend) to drive you home once discharged from the hospital. You cannot drive yourself home after surgery. - YOU MUST HAVE A RESPONSIBLE HANDBAG FINISHER TAKE YOU HOME. A HEALTH ANALYST, CAB OR UBER HANDBAG FINISHER CANNOT BE MADE A RESPONSIBLE HANDBAG FINISHER. - If you are undergoing an outpatient procedure you must have someone drive you home and stay with you for the first 24 hours. Your ride home must be at least 18 years old or older. Your surgery may be cancelled if you do not have someone to drive you home or take care of you. - You cannot stay in a hotel alone after an outpatient surgery. - It is recommended patients have a 72-hour period between getting their vaccine and the date of surgery. Visitation: Visitors to any [facility] facility: Any individual who is sick should not visit. Visitors to patients with COVID-19 must follow these guidelines, which include wearing a mask, eye protection, gown and gloves. [facility] in [place] Visitation hours: 7 AM to 9 PM. Pre-Surgery Unit - Patients may have up to 2 visitors at a time. PACU recovery Unit - Patients may have up to 1-2 visitors at a time. [facility] [place] Pre-Surgery area - 1 visitor at a time due to limited space. PACU recovery area - No visitors due to limited space unless patient is a minor due to limited space. If you develop symptoms such as a fever, cold, or flu, or have other changes to your health within TWO DAYS of scheduled surgery or the morning of surgery, please contact the surgeon's office. Personal Belongings: - Leave ALL valuables and money at home or with family members. - You will need a form of ID and insurance card to check in the morning of surgery. - If you do not have a copy of Advance Directives on file with us, please bring a copy with you on the day of surgery. If you already have an Advance Directive, please fax a copy to [phone] or email to for it to be added to your chart. If you do not have an Advance Directive, you can find the appropriate form and more information at [email or web address]. We recommend that you complete the Advance Directive form found on the website and bring it with you the day of your surgery. It can be witnessed and scanned into your chart that day. IF you are having a TOTAL KNEE, HIP REPLACEMENT OR ORTHOPEDIC SURGERY: - Orthopedic patients at [facility] listed as outpatient, please bring walker into the building. - Orthopedic patients at [facility] listed as to be admitted, please leave walkers in the car or with a family member. - Orthopedic patients at [facility], please bring the walker into the building day of surgery. Ericka Winters APRN.CNP 04/18/24 documented in this encounter [facility] 04-15-2024 Telephone encounter Note Spoke with patient regarding moving surgery date from 04/24 to 04/26. Patient is good with this plan. Explained PST will not change and time of surgery and arrival time remains the same. Patient was appreciative. [facility] 04-15-2024 Miscellaneous Notes Spoke with patient regarding moving surgery date from 04/24 to 04/26. Patient is good with this plan. Explained PST will not change and time of surgery and arrival time remains the same. Patient was appreciative. documented in this encounter [facility] 04-15-2024 History of Present illness Narrative Patient verified by last name and . Images from the original note were not included. 04/15/2024 Reshma Evans (: 1940) is a 83 y.o. female , Established patient, here for evaluation of the following chief complaint(s): Follow-up (Surgical Clearance for eye surgery (04/24) ) ASSESSMENT/PLAN: 1. Pre-operative clearance - Stable exam findings. Will await PAT results and sign clearance forms accordingly. 2. Intracranial meningioma (HCC) - Stable. Follow up with specialist as directed. 3. Skin yeast infection - nystatin (Mycostatin) 329943 UNIT/GM powder; Apply topically three times daily., Starting 04/15/2024, Normal - Encouraged to keep skin clean and dry. - Discussed signs and symptoms warranting follow up in the office- verbalized understanding. Follow up in about 2 months (around 06/15/2024) for AWV and fasting blood work. SUBJECTIVE/OBJECTIVE: AMADOU Thurston presents today for surgical clearance for a left frontotemporal craniotomy for meningioma resection on 04/24/[address] Neymar Jeronimo through the [facility]. Is scheduled for PAT on 04/18/24 through the [facility]. Has had surgeries in the past and denies history of complications from anesthesia. Has concerns regarding a rash in her abdominal folds that she would like looked at today while she is here as well. Health Maintenance: Flu vaccine current: 04/08/24. Review of Systems Constitutional: Negative for chills and fever. Respiratory: Negative for chest tightness and shortness of breath. Cardiovascular: Negative for chest pain, palpitations and leg swelling. Gastrointestinal: Negative for abdominal distention and abdominal pain. Skin: Positive for rash. Vitals: 04/15/24 1057 BP: 112/64 Pulse: 67 SpO2: 97% Weight: 174 lb 3.2 oz (79 kg) Height: 5' 7 (1.702 m) Body mass index is 27.28 kg/m . Physical Exam Constitutional: General: She is not in acute distress. Appearance: She is not ill-appearing or diaphoretic. HENT: Head: Normocephalic and atraumatic. Neck: Vascular: No carotid bruit. Cardiovascular: Rate and Rhythm: Normal rate and regular rhythm. Pulses: Normal pulses. Heart sounds: Normal heart sounds. No friction rub. Pulmonary: Effort: Pulmonary effort is normal. Breath sounds: Normal breath sounds. No wheezing, rhonchi or rales. Abdominal: General: Bowel sounds are normal. There is no distension. Palpations: Abdomen is soft. There is no mass. Tenderness: There is no abdominal tenderness. There is no guarding. Musculoskeletal: Cervical back: Neck supple. Right lower leg: No edema. Left lower leg: No edema. Lymphadenopathy: Cervical: No cervical adenopathy. Skin: General: Skin is warm. Findings: Rash (erythematous rash with satellite lesion in abdominal folds) present. Neurological: Mental Status: She is alert and oriented to person, place, and time. Psychiatric: Mood and Affect: Mood normal. Behavior: Behavior normal. Thought Content: Thought content normal. Judgment: Judgment normal. An electronic signature was used to authenticate this note. IFEANYI Fernandes CNP 04/15/2024 11:26 AM documented in this encounter [facility] 04-10-2024 Telephone encounter Note Notified. [facility] 04-10-2024 Miscellaneous Notes Notified. I recommend getting the PAT done through the facility performing the surgery so the workup includes everything they need. Spoke to Reshma, states that she is unsure of the date as of right now, date is projected for 04/18 at [facility] in [place]. Is there anyway that she would be able to get the pre-admission testing done here? As it is hard for both her and her to drive that far. I scheduled patient for 04/15/2024 at 11:00 am as that was the only available we had. Okay to use. Does she have a date and location set for her pre-admission testing? Name of caller: reshma Contact phone number: [phone] Relationship to Patient: patient Provider: Zoë Kaplan Practice: [facility] Chief Complaint/Reason for Call: pt called in to report having surgery on the 16 Best time of day caller can be reached: AM Patient advised that office/PCP has 24-48 business hours to return their call: Yes documented in this encounter [facility] 04-10-2024 Telephone encounter Note I recommend getting the PAT done through the facility performing the surgery so the workup includes everything they need. [facility] 04-10-2024 Telephone encounter Note Spoke to Reshma, states that she is unsure of the date as of right now, date is projected for 04/18 at [facility] in [place]. Is there anyway that she would be able to get the pre-admission testing done here? As it is hard for both her and her to drive that far. I scheduled patient for 04/15/2024 at 11:00 am as that was the only available we had. [facility] 04-10-2024 Telephone encounter Note Okay to use. Does she have a date and location set for her pre-admission testing? [facility] 04-09-2024 Telephone encounter Note Called patient and left a VM requesting a phone call back to discuss surgery details. [facility] 04-09-2024 Miscellaneous Notes Called patient and left a VM requesting a phone call back to discuss surgery details. documented in this encounter [facility] 04-09-2024 Telephone encounter Note Name of caller: reshma Contact phone number: [phone] Relationship to Patient: patient Provider: Zoë Kaplan Practice: [facility] Chief Complaint/Reason for Call: pt called in to report having surgery on the Best time of day caller can be reached: AM Patient advised that office/PCP has 24-48 business hours to return their call: Yes [facility] [employer] 04-08-2024 History of Present illness Narrative Patient verified by last name and . After obtaining consent, and per orders of Zoë Kaplan CNP, injection of Influenza given in the Right Deltoid by Theodora Bennett. Patient instructed to report any adverse reactions immediately. Images from the original note were not included. 04/08/2024 Reshma Evans (: 1940) is a 83 y.o. female , Established patient, here for evaluation of the following chief complaint(s): Pre-op Exam (Is having eye surgery and was told that she needed to be seen to make sure she is in good health. Unknown of date. ) ASSESSMENT/PLAN: 1. Intracranial meningioma (HCC) - Called and spoke with specialist office. States they are hoping to have a date set for the surgery within the next week or so. Reshma will update us once the date is set and get her scheduled for a surgical clearance visit accordingly. Will get PAT completed through [facility] as directed. 2. Flu vaccine need - Flu vaccine (FLUAD), trivalent, adjuvanted, preservative-free (ages 65+/high dose) - VIS provided in AVS. Follow up for surgical clearance once date for surgery is set. SUBJECTIVE/OBJECTIVE: HPI - eRshma presents today with a friend stating she was told she needs seen by her PCP before she can have eye surgery for her intracranial meningioma. When asking about this she actually just agreed to have the surgery today and does not have a date set yet. Will be getting PAT completed through the [facility], which is where her neurosurgeon is. Health Maintenance: Would like a flu vaccine. Review of Systems Constitutional: Negative for chills and fever. Respiratory: Negative for chest tightness and shortness of breath. Cardiovascular: Negative for chest pain. Vitals: 04/08/24 1333 BP: 124/84 Pulse: 71 SpO2: 97% Weight: 173 lb 3.2 oz (78.6 kg) Height: 5' 7 (1.702 m) Body mass index is 27.13 kg/m . Physical Exam Constitutional: General: She is not in acute distress. Appearance: She is not ill-appearing or diaphoretic. Cardiovascular: Rate and Rhythm: Normal rate and regular rhythm. Heart sounds: Normal heart sounds. No murmur heard. No friction rub. Pulmonary: Effort: Pulmonary effort is normal. Breath sounds: Normal breath sounds. No wheezing, rhonchi or rales. Skin: General: Skin is warm and dry. Coloration: Skin is not pale. Findings: No erythema or rash. Neurological: Mental Status: She is alert and oriented to person, place, and time. Psychiatric: Mood and Affect: Mood normal. Behavior: Behavior normal. Thought Content: Thought content normal. Judgment: Judgment normal. An electronic signature was used to authenticate this note. IFEANYI Fernandes CNP 04/08/2024 2:03 PM documented in this encounter [facility] 04-08-2024 Telephone encounter Note Noted. Will see as scheduled. Make sure to update medication list when she comes for her visit. [facility] 04-08-2024 Miscellaneous Notes Noted. Will see as scheduled. Make sure to update medication list when she comes for her visit. S: Patient spoke with [facility] nurse regarding schedule an appointment. B: Eye surgery, she will find out tomorrow what the date and time is for the surgery. A: Patient states she is having eye surgery and would like to see Zoë before the surgery. Patient was also reviewing old paperwork and noticed test strips were listed on the paperwork and she said she is not a diabetic and does not test her blood sugars and is confused on why they are on her list. R: Insurance was verified. Appointment was scheduled for 04/08/24 at 1:40 pm with CARLEE Barclay. Instructed to bring insurance and ID. Denies COVID symptoms or exposure. Advised patient she will be able to talk it over with provider today regarding diabetes and testing sugars. Patient understands care advice. No further needs at this time. Patient instructed to call back with new or worsening symptoms. Reason for Disposition Caller requesting an appointment, triage offered and declined Protocols used: PCP Call - No [id number] documented in this encounter [facility] 04-08-2024 Telephone encounter Note S: Patient spoke with [facility] nurse regarding schedule an appointment. B: Eye surgery, she will find out tomorrow what the date and time is for the surgery. A: Patient states she is having eye surgery and would like to see Zoë before the surgery. Patient was also reviewing old paperwork and noticed test strips were listed on the paperwork and she said she is not a diabetic and does not test her blood sugars and is confused on why they are on her list. R: Insurance was verified. Appointment was scheduled for 04/08/24 at 1:40 pm with CARLEE Barclay. Instructed to bring insurance and ID. Denies COVID symptoms or exposure. Advised patient she will be able to talk it over with provider today regarding diabetes and testing sugars. Patient understands care advice. No further needs at this time. Patient instructed to call back with new or worsening symptoms. Reason for Disposition Caller requesting an appointment, triage offered and declined Protocols used: PCP Call - No [id number] [facility] 04-04-2024 History of Present illness Narrative Images from the original note were not included. NEUROSURGERY FOLLOW UP OFFICE NOTE Neymar Jeronimo MD Date of visit: April 04, 2024 Patient Name: Ms.Miriam Ronit Evans Date of : 1940 Current Age: [age] year old Sex: female MRN/E# [id number] Last Office Visit: 02/19/2024 CLINICAL SUMMARY: * 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 Dr. Mario Cruz - [facility] [phone] SUBJECTIVE: History of Present Illness. Reshma Evans is a 83 year old right-handed female presenting with son. PMH including HTN, HLD, KIMBERLY, DM. Patient has a past surgical history of left frontal craniotomy for meningioma resection, exenteration of frontal sinus 09/24/[address] Lee Mckeon at [facility]. 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 She was seen at [facility] on 02/13/2024 after a fall after stepping off the curb. She struck the left side of her face. CT brain demonstrated a small left frontal SDH. Repeat imaging was stable. She was recommended to keep her outpatient follow up appointment. She was seen on 02/19/2024 where she had been doing well since fall. She initially had MRIs ordered from Dr. Cruz with opthalmology due to the left eye exophthalmus. She noted that this had started about 2 months prior. She stated that when she looked out of the left eye that vision was a bit fuzzy. 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 Left sphenoid wing meningioma with most of its mass located away from the optic nerve. Small right anterior clinoid meningioma noted that was new from MRI in 2013. Since optic nerve was not well visualized, she was recommended to have MRI pituitary to better assess. Her CT brain showed improvement in the left lateral subdural collection, more chronic in appearance. Today she follow up with new MRI imaging. She reports that she has been doing well overall. States vision is about the same - had a fuzziness on the left eye. Denies double vision. She has mild headaches intermittently, not everyday, resolve well with tylenol. She noted that from laying down in MRI left leg was stiff and had some pain. She is eager to go over MRI results. She is here for image review, evaluation and plan of care. 02/19/2024 04/04/2024 [place] Outcome Scale Extended (JANNETH-E) Is the head injured person able to obey simple commands, or say any words? Yes Yes Is the head injured person able to obey simple commands, or say any words? Yes Yes Is the assistance of another person at home essential every day for some activities of daily living? No No Are they able to shop without assistance? Yes Yes Are they able to travel locally without assistance? Yes Yes Are they currently able to work to their previous capacity? Yes Yes Are they able to resume regulare social and leisure activities outside home? Yes Yes Have there been psychological problems which have resulted in ongoing family disruption or disruption to friendships? No No Are there any other current problems relating to the injury which affect daily life? 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 PAST MEDICAL HISTORY Diagnosis Date Diabetes (HCC) HTN (hypertension) 02/14/2024 Hyperlipidemia 02/14/2024 Obesity Sleep apnea PAST SURGICAL HISTORY Procedure Laterality Date ARTHRP KNE CONDYLE&PLATU MEDIAL&LAT COMPARTMENTS 1979 right RECONSTRUCT CLEFT PALATE Infancy RECONSTRUCTION ROTATOR CUFF AVULSION CHRONIC 2007 right REPAIR CLEFT LIP Infancy FAMILY HISTORY Problem Relation Age of Onset other (esophageal cancer [Other]) Brother 62 other (leukemia [Other]) Sister 49 ALLERGIES No Known Allergies Current Outpatient Medications Medication Sig Dispense Refill fluorometholone (FML LIQUID FILM) 0.1 % ophthalmic suspension Use 1 Drop in the left eye two times a day. vitamin E, dl,tocopheryl acet, (VITAMIN E, DL, ACETATE,) 180 mg (400 unit) capsule Take 180 mg by mouth. multivitamin/iron/folic acid (CENTRUM ORAL) Take by mouth. hydroCHLOROthiazide 12.5 mg tablet Take 12.5 mg by mouth once daily. gabapentin (NEURONTIN) 100 mg capsule Take 100 mg by mouth two times a day. lisinopril (ZESTRIL) 10 mg tablet Take 10 mg by mouth once daily. propranolol (INDERAL) 20 mg tablet Take 20 mg by mouth two times a day. Cunningham-3 Fatty Acids-Vitamin E (FISH OIL) 1,000 mg cap Take 1 capsule by mouth. simvastatin (ZOCOR) 40 mg tablet Take by mouth. Cholecalciferol, Vitamin D3, (VITAMIN D) 1,000 unit ORAL Cap Take one(1) tablet daily. ascorbic acid (VITAMIN C) 500 mg ORAL tablet Take one(1) tablet daily. CALCIUM/MAG OXIDE/VITAMIN D3 (CORAL CALCIUM PLUS ORAL) pt not sure of dosage takes 1 daily No current facility-administered medications for this visit. OBJECTIVE: BP 160/80 Pulse 69 Resp 16 Ht 5' 7 (1.70m) Wt 175 lb 14.8 oz (79.8kg) SpO2 98% BMI 27.55 kg/(m^2). PHYSICAL EXAM A&Ox3, speech fluent SUJIT 3 mm, decreased vision in left eye Lt eye exophthalmus EOM are full Face symmetric No pronator drift 5/5 in UEs and LEs Data Review IMAGING STUDIES: MRI pituitary obtained on 04/04/2024 demonstrates: Final read pending Visual field 02/09/2024: Images independently reviewed The following portions of the patient's history were reviewed, confirmed, updated as necessary: allergies, current medications, past family history, past medical history, past social history, past surgical history, problem list, HPI and ROS obtained by others. The clinical and radiographic findings as well as the risks, benefits, and alternatives of treatment have been reviewed in detail with the patient. ASSESSMENT/PLAN 1. Intracranial meningioma (HCC) Reviewed results of MRI brain - on FIESTA sequences there appears to be significant compression of the optic nerve within the optic canal secondary to bone expansion of the intraosseous component of the tumor. Discussed with patient and son surgery, radiation and conservative management of the left sided meningioma. Recommend surgical decompression. We reviewed extensively the risks and benefits of surgical decompression, details of the procedure and expected post operative course. All questions answered. They would like to discuss with family and will call back if they decide to proceed with surgery. We also discussed GammaKnife radiosurgery for the right sided anterior clinoid meningioma. Recommended to address this once we decide on the management of the left sided tumor. - will need medical clearance - full day block - 8 hrs - supine - Brainlab - microscope - CUSA - pre-op CT and MRI brain Encouraged patient to contact our office should there be any further questions, concerns, or change in symptoms. Patient expressed understanding and is in agreement with plan. Some elements may have been copied from a previous note and have been updated/reviewed where appropriate. All portions reflect current medical decision making from today. Neymar Jeronimo MD I spent a total of 40 minutes on the date of the service which included preparing to see the patient, [id number] patient care, completing clinical documentation, obtaining and/or reviewing separately obtained history, performing a medically appropriate examination, counseling and educating the patient/family/caregiver, ordering medications, tests, or procedures, independently interpreting results (not separately reported), and communicating results to the patient/family/caregiver. documented in this encounter [facility] 04-04-2024 Note HNO ID: [id number] Author: NEYMAR JERONIMO MD Service: ? Author Type: Physician Type: Progress Notes Filed: 04/19/2024 10:45 Note Text: NEUROSURGERY FOLLOW UP OFFICE NOTE Neymar Jeronimo MD Date of visit: April 04, 2024 Patient Name: Ms.Miriam Ronit Evans Date of : 1940 Current Age: [age] year old Sex: female MRN/E# [id number] Last Office Visit: 02/19/2024 CLINICAL SUMMARY: * 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 Dr. Mario Cruz - [facility] [phone] SUBJECTIVE: History of Present Illness. Reshma Evans is a 83 year old right-handed female presenting with son. PMH including HTN, HLD, KIMBERLY, DM. Patient has a past surgical history of left frontal craniotomy for meningioma resection, exenteration of frontal sinus 09/24/[address] Lee Mckeon at [facility]. 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 She was seen at [facility] on 02/13/2024 after a fall after stepping off the curb. She struck the left side of her face. CT brain demonstrated a small left frontal SDH. Repeat imaging was stable. She was recommended to keep her outpatient follow up appointment. She was seen on 02/19/2024 where she had been doing well since fall. She initially had MRIs ordered from Dr. Cruz with opthalmology due to the left eye exophthalmus. She noted that this had started about 2 months prior. She stated that when she looked out of the left eye that vision was a bit fuzzy. 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 Left sphenoid wing meningioma with most of its mass located away from the optic nerve. Small right anterior clinoid meningioma noted that was new from MRI in 2013. Since optic nerve was not well visualized, she was recommended to have MRI pituitary to better assess. Her CT brain showed improvement in the left lateral subdural collection, more chronic in appearance. Today she follow up with new MRI imaging. She reports that she has been doing well overall. States vision is about the same - had a fuzziness on the left eye. Denies double vision. She has mild headaches intermittently, not everyday, resolve well with tylenol. She noted that from laying down in MRI left leg was stiff and had some pain. She is eager to go over MRI results. She is here for image review, evaluation and plan of care. 02/19/2024 04/04/2024 [place] Outcome Scale Extended (JANNETH-E) Is the head injured person able to obey simple commands, or say any words? Yes Yes Is the head injured person able to obey simple commands, or say any words? Yes Yes Is the assistance of another person at home essential every day for some activities of daily living? No No Are they able to shop without assistance? Yes Yes Are they able to travel locally without assistance? Yes Yes Are they currently able to work to their previous capacity? Yes Yes Are they able to resume regulare social and leisure activities outside home? Yes Yes Have there been psychological problems which have resulted in ongoing family disruption or disruption to friendships? No No Are there any other current problems relating to the injury which affect daily life? 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 PAST MEDICAL HISTORY Diagnosis Date Diabetes (HCC) HTN (hypertension) 02/14/2024 Hyperlipidemia 02/14/2024 Obesity Sleep apnea PAST SURGICAL HISTORY Procedure Laterality Date ARTHRP KNE CONDYLEANDPLATU MEDIALANDLAT COMPARTMENTS 1980 right RECONSTRUCT CLEFT PALATE Infancy RECONSTRUCTION ROTATOR CUFF AVULSION CHRONIC 2008 right REPAIR CLEFT LIP Infancy FAMILY HISTORY Problem Relation Age of Onset other (esophageal cancer [Other]) Brother 62 other (leukemia [Other]) Sister 49 ALLERGIES No Known Allergies Current Outpatient Medications Medication Sig Dispense Refill fluorometholone (FML LIQUID FILM) 0.1 % ophthalmic suspension Use 1 Drop in the left eye two times a day. vitamin E, dl,tocopheryl acet, (VITAMIN E, DL, ACETATE,) 180 mg (400 unit) capsule Take 180 mg by mouth. multivitamin/iron/folic acid (CENTRUM ORAL) Take by mouth. hydroCHLOROthiazide 12.5 mg tablet Take 12.5 mg by mouth once daily. gabapentin (NEURONTIN) 100 mg capsule Take 100 mg by mouth two times a day. lisinopril (ZESTRIL) 10 mg tablet Take 10 mg by mouth once daily (more content not included)... [facility] 04-04-2024 History of Present illness Narrative Radiology Service Progress Note DATE OF SERVICE: April 04, 2024 TIME: 9:05 AM PATIENT IDENTITY VERIFICATION COMPLETED USING TWO (2) STANDARD IDENTIFIERS: Name and Date of confirmed by patient verbally. FALL SCREENING: Has the patient had 2 falls in the last year or 1 fall with injury or currently using an Ambulatory Assistive Device (Walker, Cane, Wheelchair, Crutches, etc.)? No PATIENT GENDER DATA: Female. status: : No status: NO. PATIENT RELEVANT IMPLANT DATA REVIEWED: Not Applicable PATIENT PRESENTS WITH AN IMPLANTABLE OR ATTACHED ASSISTED LIVING COORDINATOR: No ALLERGIES: Reviewed and unchanged CONTRAST ALLERGY: NO. EXAM: MRI - CONTRAST TYPE: GROUP II PERIPHERAL IV DATA: Ambulatory: A peripheral IV was started in the Right antecubital site with a Butterfly: 25 gauge. RADIOLOGY DEPARTMENT: MR; Exam(s) Completed: Head: Pituitary SIGNATURE: RT Mya(Ronit) PATIENT NAME: Reshma Evans DATE: April 04, 2024 TIME: 9:05 AM documented in this encounter [facility] 04-04-2024 Note HNO ID: [id number] Author: KAYODE WALL RT(R) Service: ? Author Type: Technologist Type: Progress Notes Filed: 04/04/2024 09:05 Note Text: Radiology Service Progress Note DATE OF SERVICE: April 04, 2024 TIME: 9:05 AM PATIENT IDENTITY VERIFICATION COMPLETED USING TWO (2) STANDARD IDENTIFIERS: Name and Date of confirmed by patient verbally. FALL SCREENING: Has the patient had 2 falls in the last year or 1 fall with injury or currently using an Ambulatory Assistive Device (Walker, Cane, Wheelchair, Crutches, etc.)? No PATIENT GENDER DATA: Female. status: : No status: NO. PATIENT RELEVANT IMPLANT DATA REVIEWED: Not Applicable PATIENT PRESENTS WITH AN IMPLANTABLE OR ATTACHED ASSISTED LIVING COORDINATOR: No ALLERGIES: Reviewed and unchanged CONTRAST ALLERGY: NO. EXAM: MRI - CONTRAST TYPE: GROUP II PERIPHERAL IV DATA: Ambulatory: A peripheral IV was started in the Right antecubital site with a Butterfly: 25 gauge. RADIOLOGY DEPARTMENT: MR; Exam(s) Completed: Head: Pituitary SIGNATURE: RT yMa(Ronit) PATIENT NAME: Reshma Evans DATE: April 04, 2024 TIME: 9:05 AM [facility] 02-21-2024 Telephone encounter Note Okay, thank you [facility] 02-21-2024 Miscellaneous Notes Okay, thank you Name of caller: Porter Contact phone number: [phone] Relationship to Patient: [facility] Provider: Brandon Practice: [facility] Chief Complaint/Reason for Call: Porter said the patient is still denying services. He said they are going to put them on hold for now. Please advise Best time of day caller can be reached: any Patient advised that office/PCP has 24-48 business hours to return their call: No Okay, thank you Name of caller: Wyatt Contact phone number: [phone] Relationship to Patient: Provider: Practice: [facility] Chief Complaint/Reason for Call: MICHAEL deshpande is requesting start of care for pt to be pushed to 02/21/2024 and a new request will be faxed to office Best time of day caller can be reached: any Patient advised that office/PCP has 24-48 business hours to return their call: No documented in this encounter [facility] 02-21-2024 Telephone encounter Note Name of caller: Porter Contact phone number: [phone] Relationship to Patient: [facility] Provider: Brandon Practice: [facility] Chief Complaint/Reason for Call: Porter said the patient is still denying services. He said they are going to put them on hold for now. Please advise Best time of day caller can be reached: any Patient advised that office/PCP has 24-48 business hours to return their call: No [facility] 02-19-2024 Telephone encounter Note Called [facility], Dr. Cruz office [phone] - spoke with glendy she said she would send over visual field study & last two office notes from 01/25/2024 and 02/09/2024 on the patient. Provided her with our fax #. Karli Cox RN [facility] 02-19-2024 Miscellaneous Notes Called [facility], Dr. Cruz office [phone] - spoke with glendy she said she would send over visual field study & last two office notes from 01/25/2024 and 02/09/2024 on the patient. Provided her with our fax #. Karli Cox RN documented in this encounter [facility] 02-19-2024 History of Present illness Narrative Images from the original note were not included. 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 Dr. Mario Cruz - [facility] [phone] HISTORY OF PRESENT ILLNESS : Reshma Evans is a 83 year old right-handed female presenting with son. PMH including HTN, HLD, KIMBERLY, DM. Patient has a past surgical history of eft frontal craniotomy for meningioma resection, exenteration of frontal sinus 09/24/[address] Lee Mckeon at [facility]. 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 She was seen at [facility] on 02/13/2024 after a fall after stepping off the curd. She struck the left side of her face. CT brain demonstrated a small left frontal SDH. Repeat imaging was stable. She was recommended to keep her outpatient follow up appointment. Today she reports that she has been doing well overall. She had initially had MRIs ordered from Dr. Cruz with opthalmology due to the left eye exophthalmus. She noted that this had started about 2 months prior. She stated that when she looks out of the left eye that vision is a bit fuzzy. She is here for image review, evaluation and plan of care. Smoker: no Diabetic: YES Anticoagulants / Antiplatelets: no Occupation: retired 02/19/2024 [place] Outcome Scale Extended (JANNETH-E) Is the head injured person able to obey simple commands, or say any words? Yes Is the head injured person able to obey simple commands, or say any words? Yes Is the assistance of another person at home essential every day for some activities of daily living? No Are they able to shop without assistance? Yes Are they able to travel locally without assistance? Yes Are they currently able to work to their previous capacity? Yes Are they able to resume regulare social and leisure activities outside home? Yes Have there been psychological problems which have resulted in ongoing family disruption or disruption to friendships? No Are there any other current problems relating to the injury which affect daily life? No (Upper GR) GOS-E Score: 8 - Upper Good Recovery (Upper GR) PAIN EVALUATION 02/19/2024 1404 Pain Location: Eye-Left head Description: Sore;Aching Duration Amount of Time: 1 Duration Units: Weeks Frequency: Continuous Comments: Pain in eye has been going on for 1 month PAST MEDICAL HISTORY No date: Diabetes (HCC) 02/14/2024: HTN (hypertension) 02/14/2024: Hyperlipidemia No date: Obesity No date: Sleep apnea PAST SURGICAL HISTORY 1979: ARTHRP KNE CONDYLE&PLATU MEDIAL&LAT COMPARTMENTS Comment: right Infancy: RECONSTRUCT CLEFT PALATE 2008: RECONSTRUCTION ROTATOR CUFF AVULSION CHRONIC Comment: right Infancy: REPAIR CLEFT LIP FAMILY HISTORY Problem Relation Age of Onset other (esophageal cancer [Other]) Brother 62 other (leukemia [Other]) Sister 49 ALLERGIES No Known Allergies Current Outpatient Medications Medication Sig Dispense Refill fluorometholone (FML LIQUID FILM) 0.1 % ophthalmic suspension Use 1 Drop in the left eye two times a day. multivitamin/iron/folic acid (CENTRUM ORAL) Take by mouth. hydroCHLOROthiazide 12.5 mg tablet Take 12.5 mg by mouth once daily. gabapentin (NEURONTIN) 100 mg capsule Take 100 mg by mouth two times a day. lisinopril (ZESTRIL) 10 mg tablet Take 10 mg by mouth once daily. propranolol (INDERAL) 20 mg tablet Take 20 mg by mouth two times a day. metFORMIN 500 mg 24 hr tablet Take 500 mg by mouth daily with breakfast. Cunningham-3 Fatty Acids-Vitamin E (FISH OIL) 1,000 mg cap Take 1 capsule by mouth. simvastatin 20 mg ORAL tablet Take one(1) tablet daily. Cholecalciferol, Vitamin D3, (VITAMIN D) 1,000 unit ORAL Cap Take one(1) tablet daily. ascorbic acid (VITAMIN C) 500 mg ORAL tablet Take one(1) tablet daily. CALCIUM/MAG OXIDE/VITAMIN D3 (CORAL CALCIUM PLUS ORAL) pt not sure of dosage takes 1 daily vitamin E, dl,tocopheryl acet, (VITAMIN E, DL, ACETATE,) 180 mg (400 unit) capsule Take 180 mg by mouth. Propranolol-Hydrochlorothiazid 80-25 mg ORAL per tablet Take one(1) tablet daily. No current facility-administered medications for this visit. REVIEW OF SYSTEMS Review of Systems Constitutional: Negative for chills and fever. HENT: Negative for congestion. Eyes: Left eye exophthalmus Respiratory: Negative for cough and shortness of breath. Cardiovascular: Negative for leg swelling. Gastrointestinal: Negative for nausea and vomiting. Genitourinary: Negative for difficulty urinating. Musculoskeletal: Positive for back pain. Negative for gait problem. Skin: Negative for rash and wound. Neurological: Negative for weakness. Hematological: Does not bruise/bleed easily. OBJECTIVE: BP 119/77 Pulse 60 Resp 16 Wt 177 lb 4 oz (80.4kg) SpO2 99% PHYSICAL EXAM: A&Ox3, speech fluent Left facial bruising SUJIT 3 mm, decreased vision in left eye EOM are full Face symmetric No pronator drift 5/5 in UEs and LEs Data Review IMAGING STUDIES: CT brain obtained on 02/19/2024 demonstrates: Final read pending MRI brain obtained on 02/07/2024 demonstrates: IMPRESSION: Left sphenoid wing mass, likely a meningioma with mild mass effect and mild signal changes of the left temporal lobe. Involvement of the left greater wing of the sphenoid wing with extension into left extraconal orbit as well as extension to the left orbital apex. Due to motion, affect on the optic nerve is poorly assessed. Left exophthalmos is noted. Extensive dural thickening and enhancement is nonspecific, though likely related to mass, either neoplastic (such as meningiomatosis) or reactive. See body of report for additional details. Neurosurgical evaluation is suggested. 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 Chronic parenchymal changes as discussed. Images independently reviewed The following portions of the patient's history were reviewed, confirmed, updated as necessary: allergies, current medications, past family history, past medical history, past social history, past surgical history, problem list, HPI and ROS obtained by others. The clinical and radiographic findings as well as the risks, benefits, and alternatives of treatment have been reviewed in detail with the patient. ASSESSMENT/PLAN 1. Benign neoplasm of meninges (HCC) Reviewed MRI brain in detail - left sided exophthalmos, optic nerves not well visualized and thus difficult to assess the degree of possible compression to account for decreased vision. Left sphenoid wing meningioma with most of its mass located away from the optic nerve. Small right anterior clinoid meningioma. This is new since the MRI from 2013. - no overt reason for lt eye exophthalmus. There is some intraosseous involvement of the lateral orbit that is relatively minor. - the optic nerve not well visualized on the last MRI. No overt nearby bone involvement of meningioma. There is diffuse dural thickening that extends along the anterior fossa dura - will attempt to get better images with pituitary sequences - briefly discussed surgery vs gamma knife radiosurgery for the left meningioma, and GKRS to the right meningioma - f/up after imaging is completed to review results and finalize treatment plan - MRI PITUITARY WO/W IVCON; Future 2. Subdural hematoma (HCC) Reviewed CT brain - improvement in the appearance of left lateral subdural collection more chronic in appearance. No acute hemorrhage - improving post fall Encouraged patient to contact our office should there be any further questions, concerns, or change in symptoms. Patient expressed understanding and is in agreement with plan. Some elements may have been copied from a previous note and have been updated/reviewed where appropriate. All portions reflect current medical decision making from today. Neymar Jeronimo MD I spent a total of 40 minutes on the date of the service which included preparing to see the patient, [id number] patient care, completing clinical documentation, obtaining and/or reviewing separately obtained history, performing a medically appropriate examination, counseling and educating the patient/family/caregiver, ordering medications, tests, or procedures, independently interpreting results (not separately reported), and communicating results to the patient/family/caregiver. documented in this encounter [facility] 02-19-2024 Telephone encounter Note Okay, thank you [facility] 02-19-2024 Telephone encounter Note Name of caller: Wyatt Contact phone number: [phone] Relationship to Patient: Provider: Practice: [facility] Chief Complaint/Reason for Call: MICHAEL family is requesting start of care for pt to be pushed to 02/21/2024 and a new request will be faxed to office Best time of day caller can be reached: any Patient advised that office/PCP has 24-48 business hours to return their call: No [facility] 02-15-2024 Telephone encounter Note Okay, thank you [facility] 02-15-2024 Miscellaneous Notes Okay, thank you Name of caller: Perez mejia/ [employer] Contact phone number: [phone] Relationship to Patient: Home care Provider: Dr. Neville Practice: [facility] Chief Complaint/Reason for Call: Patient declined to setup first appointment with home care, wants delayed by a week. FYI. Best time of day caller can be reached: any Patient advised that office/PCP has 24-48 business hours to return their call: N/A Notified Charlie. Yes, I will take care of signing her orders. Name of Caller: Charlie from Contact Reason: Charlie is calling to ask for verbal orders and if Dr. Neville or Zoë would be willing to follow for home care for Reshma. She is discharging from [facility] today for a subdural hematoma. They are looking to provide OT and PT services. Office Name: [facility] TERAN documented in this encounter [facility] 02-15-2024 Telephone encounter Note Name of caller: Perez mejia/ [facility] Contact phone number: [phone] Relationship to Patient: Home care Provider: Dr. Neville Practice: [facility] Chief Complaint/Reason for Call: Patient declined to setup first appointment with home care, wants delayed by a week. FYI. Best time of day caller can be reached: any Patient advised that office/PCP has 24-48 business hours to return their call: N/A [facility] 02-14-2024 Telephone encounter Note Notified Charlie. [facility] 02-14-2024 Telephone encounter Note Yes, I will take care of signing her orders. [facility] 02-14-2024 Telephone encounter Note Name of Caller: Charlie from Contact Reason: Charlie is calling to ask for verbal orders and if Dr. Neville or Zoë would be willing to follow for home care for Reshma. She is discharging from [facility] today for a subdural hematoma. They are looking to provide OT and PT services. Office Name: [facility] 02-14-2024 Telephone encounter Note Called patient, left detailed voicemail regarding possible appt with our tbi clinic. Awaiting callback. [facility] 02-14-2024 Miscellaneous Notes Called patient, left detailed voicemail regarding possible appt with our tbi clinic. Awaiting callback. documented in this encounter [facility] 02-12-2024 Evaluation + Plan note Associated Problem(s): Poison ro Triamcinolone 0.5% cream apply 2-3 times a day for up to [address] [facility] 02-12-2024 Miscellaneous Notes Associated Problem(s): Poison ro Triamcinolone 0.5% cream apply 2-3 times a day for up to 2 weeks. documented in this encounter [facility] 02-12-2024 History of Present illness Narrative Patient verified by last name and date of . Images from the original note were not included. 02/12/2024 Reshma Evans (: 1940) is a 83 y.o. female , Established patient, here for evaluation of the following chief complaint(s): Poison Ro (On left arm ) ASSESSMENT/PLAN: 1. Poison ro Assessment & Plan: Triamcinolone 0.5% cream apply 2-3 times a day for up to 2 weeks. Follow up if symptoms worsen or fail to improve. SUBJECTIVE/OBJECTIVE: AMADOU Londono comes in today with a maculopapular rash along her left forearm. She said she was pulling out the poison ro terry and then she noticed these. Review of Systems Skin: Positive for rash. Vitals: 02/12/24 1307 BP: 116/69 Pulse: 61 SpO2: 96% Weight: 176 lb 6.4 oz (80 kg) Height: 5' 7 (1.702 m) Physical Exam Vitals and nursing note reviewed. Constitutional: General: She is not in acute distress. Appearance: Normal appearance. Skin: Comments: Papular rash on her left forearm 5 or 6 spots Neurological: Mental Status: She is alert. An electronic signature was used to authenticate this note. Rachid Neville MD 02/12/2024 1:41 PM documented in this encounter [facility] 02-12-2024 Telephone encounter Note S: Patient spoke with [facility] nurse regarding poison ro B:onset symptoms/concern: last week A: Patient complaints of possible poison ro rash. 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 Reports had some blistered spots dry up, but has noticed new bumps since. Bumps have redness surrounding them. Rash is irritated, but not itchy. Denies fever, rash elsewhere. R: apt made for today at [address] Neville. Please arrive 15 minutes early, bring your photo ID, insurance card, medication list .Address reviewed. Insurance coverage verified. Patient instructed to call back with new or worsening symptoms. Reason for Disposition Looks infected (e.g., soft yellow scabs, pus or spreading redness) and no fever Protocols used: Poison Ro - [place] - [id number] [facility] 02-12-2024 Miscellaneous Notes S: Patient spoke with [facility] nurse regarding poison ro B:onset symptoms/concern: last week A: Patient complaints of possible poison ro rash. 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 Reports had some blistered spots dry up, but has noticed new bumps since. Bumps have redness surrounding them. Rash is irritated, but not itchy. Denies fever, rash elsewhere. R: apt made for today at [address] Neville. Please arrive 15 minutes early, bring your photo ID, insurance card, medication list .Address reviewed. Insurance coverage verified. Patient instructed to call back with new or worsening symptoms. Reason for Disposition Looks infected (e.g., soft yellow scabs, pus or spreading redness) and no fever Protocols used: Poison Ro - [place] - [id number] documented in this encounter [facility] 01-25-2024 Telephone encounter Note Reviewed chart. Refill appropriate. RX sent. [facility] 01-25-2024 Miscellaneous Notes Reviewed chart. Refill appropriate. RX sent. No CSMA or UDS found Medication name: gabapentin (Neurontin) 100 MG capsule Medication dosage: 100 mg (Miligrams Monthly quantity needed: 60 How many day supply requestin days Medication route: oral (PO) Medication administration time(s): 2 times a day (BID) If taking medication PRN, reason for taking medication: N/A If this is a controlled substance do you receive this or any other controlled medication from any other doctor or facility: N/A Ordering provider: Dr Neville Date of last office visit: 01/02/24 Date of next office visit: 04/26/24 Date of last refill: (see medication tab): 01/02/24 Updated/Validated preferred pharmacy: Yes Patient instructed to contact the pharmacy prior to picking up the medication: Yes documented in this encounter [facility] 01-25-2024 Telephone encounter Note No CSMA or UDS found [facility] 01-25-2024 Telephone encounter Note Medication name: gabapentin (Neurontin) 100 MG capsule Medication dosage: 100 mg (Miligrams Monthly quantity needed: 60 How many day supply requestin days Medication route: oral (PO) Medication administration time(s): 2 times a day (BID) If taking medication PRN, reason for taking medication: N/A If this is a controlled substance do you receive this or any other controlled medication from any other doctor or facility: N/A Ordering provider: Dr Neville Date of last office visit: 01/02/24 Date of next office visit: 04/26/24 Date of last refill: (see medication tab): 01/02/24 Updated/Validated preferred pharmacy: Yes Patient instructed to contact the pharmacy prior to picking up the medication: Yes [facility] 01-02-2024 Evaluation + Plan note Associated Problem(s): Acute left-sided low back pain with left-sided sciatica Low back pain with sciatica will treat her with gabapentin and see if that would clear up the nerve pain. If this does not help we will send her for physical therapy and possible x-rays. [facility] 01-02-2024 Miscellaneous Notes Associated Problem(s): Acute left-sided low back pain with left-sided sciatica Low back pain with sciatica will treat her with gabapentin and see if that would clear up the nerve pain. If this does not help we will send her for physical therapy and possible x-rays. Associated Problem(s): Type 2 diabetes mellitus with hyperlipidemia (HCC) A1c done today was 5.8, continue low-carb diet. documented in this encounter [facility] 01-02-2024 Evaluation + Plan note Associated Problem(s): Type 2 diabetes mellitus with hyperlipidemia (HCC) A1c done today was 5.8, continue low-carb diet. [facility] 01-02-2024 History of Present illness Narrative Patient was verified by name and . Images from the original note were not included. 01/02/2024 Reshma Evans (: 1940) is a 83 y.o. female , Established patient, here for evaluation of the following chief complaint(s): Back Pain (Onset 1 month- left hip down leg almost gives out ) ASSESSMENT/PLAN: 1. Acute left-sided low back pain with left-sided sciatica Assessment & Plan: Low back pain with sciatica will treat her with gabapentin and see if that would clear up the nerve pain. If this does not help we will send her for physical therapy and possible x-rays. 2. Type 2 diabetes mellitus with hyperlipidemia (HCC) (HCC) Assessment & Plan: A1c done today was 5.8, continue low-carb diet. Orders: - AMB POC HEMOGLOBIN A1C Follow up in about 4 weeks (around 01/30/2024). SUBJECTIVE/OBJECTIVE: AMADOU Londono comes in today complaining of some left-sided low back pain and pain that is radiating down her leg to her foot. 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 She denies any actual weakness she denies any incontinence of urine or stool and this all started about 4 5 days ago. Review of Systems Constitutional: Negative for chills and fever. Respiratory: Negative for shortness of breath. Cardiovascular: Negative for chest pain and palpitations. Musculoskeletal: Positive for back pain, gait problem and myalgias. Negative for arthralgias and joint swelling. Neurological: Positive for weakness and numbness. Vitals: 01/02/24 1135 BP: 134/72 Pulse: 85 SpO2: 97% Weight: 179 lb 12.8 oz (81.6 kg) Height: 5' 6 (1.676 m) Physical Exam Vitals and nursing note reviewed. Constitutional: General: She is not in acute distress. Appearance: Normal appearance. HENT: Head: Normocephalic and atraumatic. Mouth/Throat: Mouth: Mucous membranes are moist. Pharynx: Oropharynx is clear. Eyes: Extraocular Movements: Extraocular movements intact. Pupils: Pupils are equal, round, and reactive to light. Cardiovascular: Rate and Rhythm: Normal rate and regular rhythm. Heart sounds: Normal heart sounds. No murmur heard. Pulmonary: Effort: Pulmonary effort is normal. Breath sounds: Normal breath sounds. Musculoskeletal: Cervical back: Neck supple. Comments: Back is straight with normal lordotic curve, she has some tenderness to palpation on the left side just lateral to the paraspinous muscle insertion and she has some pain along the lateral aspect of her thigh. She has a positive straight leg raise on the left side. Lymphadenopathy: Cervical: No cervical adenopathy. Neurological: Mental Status: She is alert. An electronic signature was used to authenticate this note. Rachid Neville MD 01/02/2024 1:01 PM documented in this encounter [facility] 08-23-2023 Evaluation + Plan note Associated Problem(s): Nasal congestion Flonase nasal spray in the morning. Ipratropium nasal spray every 8 hours if needed, highly recommend using at bedtime to help with postnasal drainage at night to decrease cough [facility] 08-23-2023 Miscellaneous Notes Associated Problem(s): Nasal congestion Flonase nasal spray in the morning. Ipratropium nasal spray every 8 hours if needed, highly recommend using at bedtime to help with postnasal drainage at night to decrease cough Associated Problem(s): Acute cough Highly suspect cough secondary to postnasal drainage. Lung sounds are clear, significant nasal congestion and postnasal drainage noted on exam. Will trial Flonase in the morning and ipratropium nasal spray as needed 3 times a day and at bedtime. Follow-up if symptoms do not improve over the next couple weeks documented in this encounter [facility] 08-23-2023 Evaluation + Plan note Associated Problem(s): Acute cough Highly suspect cough secondary to postnasal drainage. Lung sounds are clear, significant nasal congestion and postnasal drainage noted on exam. Will trial Flonase in the morning and ipratropium nasal spray as needed 3 times a day and at bedtime. Follow-up if symptoms do not improve over the next couple weeks [facility] 08-23-2023 History of Present illness Narrative Patient was identified by name and Date of . Images from the original note were not included. 08/23/2023 Reshma Evans (: 1940) is a 83 y.o. female , Established patient, here for evaluation of the following chief complaint(s): Cough ASSESSMENT/PLAN: 1. Nasal congestion Assessment & Plan: Flonase nasal spray in the morning. Ipratropium nasal spray every 8 hours if needed, highly recommend using at bedtime to help with postnasal drainage at night to decrease cough Orders: - fluticasone (Flonase) 50 MCG/ACT nasal spray; Administer 2 sprays into each nostril daily. Shake gently. Before first use, prime pump. After use, clean tip and replace cap., Starting Mon08/23/2023, Until Kati 08/22/2024, Normal - ipratropium (Atrovent) 0.06 % nasal spray; Administer 1 spray into each nostril 3 times daily for 7 days., Starting Mon08/23/2023, Until Mon08/30/2023, Normal 2. Acute cough Assessment & Plan: Highly suspect cough secondary to postnasal drainage. Lung sounds are clear, significant nasal congestion and postnasal drainage noted on exam. Will trial Flonase in the morning and ipratropium nasal spray as needed 3 times a day and at bedtime. Follow-up if symptoms do not improve over the next couple weeks Follow up if symptoms worsen or fail to improve. SUBJECTIVE/OBJECTIVE: HPI - Reshma Evans (: 1940) is a 83 y.o. female , Established patient, here for the evaluation of the following chief complaint(s): Cough Covid 19 negative. Started with cough about 3 weeks. Some mild shortness of breath. Worse when laying flat. Coughing a lot after she eats. Last night was not too bad. No sinus pressure or drainage. No headache. Did have some a lttile prior to it. Was on penicillin for tooth. Was on for 5 days and finished up 08/21/23. Does not feel sick, but does not have any energy. Prior to Admission medications Medication Sig Start Date End Date Taking? Authorizing Provider hydroCHLOROthiazide (Microzide) 12.5 MG capsule Take 1 capsule (12.5 mg) by mouth every morning. 03/14/23 Yes Rachid Neville MD Lancets (OnaroTouch Delica Plus [id number]) [facility] use to TEST BLOOD SUGAR once daily 09/27/21 Yes Historical Provider, lisinopril 10 MG tablet Take 1 tablet (10 mg) by mouth daily. 03/14/23 Yes Rachid Neville MD meclizine (Antivert) 25 MG tablet Take 1 tablet (25 mg) by mouth 3 times daily as needed for dizziness. 07/04/23 Yes IFEANYI Coker CNP Naproxen Sodium 220 MG capsule Take by mouth. Yes Historical Provider, nystatin (Mycostatin) 655392 UNIT/GM powder Apply 3 times daily. 03/24/21 Yes Historical Provider, omega-3 (Fish Oil) 1000 MG capsule Take 3,000 mg by mouth. Yes Historical Provider, MD Hodge Verio test strip use to TEST BLOOD SUGAR once daily and if needed 09/27/21 Yes Historical Provider, propranolol (Inderal) 20 MG tablet Take 1 tablet (20 mg) by mouth 2 times daily. 03/14/23 Yes Rachid Neville MD simvastatin (Zocor) 40 MG tablet Take 1 tablet (40 mg) by mouth Nightly. 03/14/23 Yes Rachid Neville MD penicillin v potassium (Veetid) 500 MG tablet TAKE 1 TABLET BY MOUTH EVERY 6 HOURS UNTIL GONE 08/14/23 Historical Provider, Review of Systems Constitutional: Negative for activity change, chills, fatigue and fever. HENT: Positive for congestion (Slight). Negative for ear pain, sinus pressure, sinus pain, sneezing and sore throat. Respiratory: Positive for cough. Negative for chest tightness, shortness of breath and wheezing. Cardiovascular: Negative for chest pain. Neurological: Negative for dizziness and headaches. Vitals: 08/23/23 1117 BP: 137/83 Pulse: 71 Resp: 18 Temp: 36.1 C (96.9 F) TempSrc: Infrared SpO2: 94% Weight: 189 lb (85.7 kg) Physical Exam Constitutional: Appearance: Normal appearance. She is not ill-appearing. HENT: Head: Normocephalic and atraumatic. Right Ear: Tympanic membrane normal. Left Ear: Tympanic membrane normal. Nose: Mucosal edema and congestion present. Right Turbinates: Enlarged and swollen. Left Turbinates: Enlarged and swollen. Mouth/Throat: Mouth: Mucous membranes are moist. Pharynx: No posterior oropharyngeal erythema. Comments: Noted postnasal drainage Eyes: Conjunctiva/sclera: Conjunctivae normal. Cardiovascular: Rate and Rhythm: Normal rate and regular rhythm. Pulses: Normal pulses. Heart sounds: Normal heart sounds. Pulmonary: Effort: Pulmonary effort is normal. Breath sounds: Normal breath sounds. Comments: Intermittent dry cough noted Neurological: Mental Status: She is alert and oriented to person, place, and time. An electronic signature was used to authenticate this note. IFEANYI Coker CNP 08/23/2023 5:10 PM documented in this encounter [facility] 08-11-2023 History of Present illness Narrative Pt's called 08/10/23 to cancel follow-up PT appts, stating the patient is not up to therapy right now. MOA explained that her account will remain open for 30 days, until 09/07/23 and would need a new referral beyond that time. Hold PT documented in this encounter [facility] 08-07-2023 History of Present illness Narrative Images from the original note were not included. [facility] [place] [facility] AT [address] [place] [address] Dept: [phone] Dept PHYSICAL THERAPY EVALUATION Patient Name: Reshma Evans : 1940 Date of Service: 08/07/2023 Referring Provider: Rachid Neville, * Visit #: 1 Diagnosis: Benign paroxysmal positional vertigo of left ear General Information Reason for referral/Mechanism of injury: 08/07/23: Pt presents for PT evaluation of dizziness. Onset 1 month ago. Dizziness is described as spinning, feels she will fall. Duration of symptoms: <1 minute. Symptoms increase with lying flat, sitting up. Symptoms reduce with staying stationary, holding onto bed, medication. Denies falls, although did have a mis-step stepping down stairs on a recent cruise. She notes she has baseline tremors after her brain tumor (benign, removed). Patient Preferences: NA Precautions/Red Flags: Yes dizziness Fall Risk: Yes Work status: retired Home Setup: lives with PMHX: Reshma has a past medical history of Acute right-sided low back pain without sciatica, Brain tumor (benign) (HCC), Bursitis, Cystocele, Diabetes mellitus (HCC), DJD (degenerative joint disease), Female stress incontinence, Hyperlipidemia, Hypertension, Mixed stress and urge urinary incontinence, Skin cancer, and Varicose veins. PSHX: Reshma has a past surgical history that includes Total knee arthroplasty; Colonoscopy; Carpal tunnel release; Alveolar cleft closure w/ bone graft; Rotator cuff repair; Eye surgery (Right); Brain tumor excision; and Cleft lip repair. Have you experienced any anxiety or depression?: No Have you experienced thoughts of self-harm or suicidal thoughts?: No Physician follow-up appointment?: No Subjective Chief Complaint: Dizziness, spinning. Dizziness: Current: 0/10 Best: 0/10 Worst: 10/10 Prior Level of Function: independent ADLs. Tremors. Current Level of Function: independent, but dizziness with bed mobility. Patient s Stated Goal: reduce dizziness. Objective Observation: presents with her . She has tremors with UE and neck/head Gait: independent, decreased trunk movement, decreased ketty Cervical AROM: WFL except extension ~50% limited. No dizziness with head motions today. Testing for Central vs. Peripheral Vestibular Dysfunction Spontaneous Nystagmus = negative Gaze-Hold Nystagmus = negative Testing for Central Vestibular Dysfunction Convergence (</=7.5 inches) = negative Saccades = positive, left Smooth Pursuits = negative VOR Cancellation = negative Testing for Peripheral Vestibular Dysfunction Head Impulse/Head Thrust (VOR) = negative Dutch John-Hallpike Test = negative, slight dizziness with head left, very brief, no nystagmus L or R. Supine Roll Test = negative Balance Date 08/07/2023 Firm Firm NBOS eyes closed 20 seconds, SBA Tandem stance, eyes open 18 seconds Tandem stance, eyes closed 1 second Functional Gait Assessment (FGA): 08/07/2023 = NT Dizziness Handicap Inventory (DHI): 08/07/2023 = 20 % disability. Assessment Reshma is a 83 y.o. patient with chief complaint of dizziness, who presents with signs and symptoms consistent with general vestibular dysfunction. She has impaired saccades (left) and impaired balance with eyes closed. She tested negative for BPPV this date, but subjective report and physician's testing suggests BPPV, therefore, we will monitor and re-test as symptoms present while treating the vestibular system in PT. The patient would benefit from skilled physical therapy to address decreased range of motion, decreased endurance, impaired balance, decreased mobility, impaired gait, impaired functional activities, and vestibular impairment. Evaluation complexity is moderate secondary to: patient has 4 or more personal factors and/or comorbidities that will affect plan of care, therapy will be addressing 3 or more elements, and clinical presentation is unstable. Body Systems Affected: neuromuscular, vestibular, and somatosensory Rehab Potential: Good Learning Preferences: demonstration, explanation, and performance Barriers to Rehab: age, comorbidities, premorbid level of function, and severity Goals General/Ortho Patient will be independent with [facility] for general vestibular training, as well as assessing and training BPPV. (Initiated) Start: 08/07/23 Expected End: 10/06/23 Patient will report resolution of dizziness x2 weeks. (Initiated) Start: 08/07/23 Expected End: 10/06/23 Patient will increase tandem stance time from 1 second to 8 seconds with eyes closed to demo increased vestibular functioning. (Initiated) Start: 08/07/23 Expected End: 10/06/23 Functional Outcome Measure: Patient will improve DHI from 20% disability to </=6% disability. (Initiated) Start: 08/07/23 Expected End: 10/06/23 Plan Frequency and Duration: 1-2/wk for 4-6 weeks. Pt prefers 1x/wk. Therapeutic Contents: manual therapy techniques, neuromuscular re-education, therapeutic activities, therapeutic exercise, vestibular rehabilitation, and modalities as needed Plan for next session: Initiate general vestibular training. Provide HEP with safe EC activities for home. Monitor for BPPV (negative at IE). Educate on BPPV testing and tx within first few sessions. Risks and benefits were discussed with the patient and/or family, and the patient and/or family participated with the plan of care and agrees. Treatment Patient Education: Eval, POC Time Entry Total Treatment Time Start Time: 954 Stop Time: 1028 Time Calculation (min): 33 min PT Evaluation Time Entry PT Evaluation (Moderate) Time Entry: 33 Tracey Disla PT documented in this encounter [facility] 07-04-2023 Telephone encounter Note Reviewed chart. Refill appropriate. RX sent. [facility] 07-04-2023 Miscellaneous Notes Reviewed chart. Refill appropriate. RX sent. The patient stopped in the office requesting a refill of medication for dizziness--Meclizine--she states that Dr. Neville had given it to her and she is requesting another rx to be sent to [facility]. documented in this encounter [facility] 07-04-2023 Telephone encounter Note The patient stopped in the office requesting a refill of medication for dizziness--Meclizine--she states that Dr. Neville had given it to her and she is requesting another rx to be sent to [facility]. [facility] 06-27-2023 Evaluation + Plan note Associated Problem(s): Benign paroxysmal positional vertigo of left ear Meclizine 25 mg every 6 hours as needed cautioned about working or driving this will make her drowsy. Referral for vestibular therapy clinic done. [facility] 06-27-2023 Miscellaneous Notes Associated Problem(s): Benign paroxysmal positional vertigo of left ear Meclizine 25 mg every 6 hours as needed cautioned about working or driving this will make her drowsy. Referral for vestibular therapy clinic done. Associated Problem(s): Greater trochanteric bursitis of right hip Injection procedure: Location right trochanteric bursa Consent: Verbal Consent Obtained-Discussed risks including hypo/hyperpigmentation, fat atrophy, steroid flare, bleeding and infection and potential consequences of over use of steroids. Prep: Betadine. Anesthesia: 2% lidocaine. Medication: 1 ml depomedrol 40 mg. Needle: 25 gauge 1.5 in. needle. Complications: No Complications, Hemostasis achieved. ND: 5799-2331-00 LOT: [id number] [facility] [id number] LOT: [id number] documented in this encounter [facility] 06-27-2023 Evaluation + Plan note Associated Problem(s): Greater trochanteric bursitis of right hip Injection procedure: Location right trochanteric bursa Consent: Verbal Consent Obtained-Discussed risks including hypo/hyperpigmentation, fat atrophy, steroid flare, bleeding and infection and potential consequences of over use of steroids. Prep: Betadine. Anesthesia: 2% lidocaine. Medication: 1 ml depomedrol 40 mg. Needle: 25 gauge 1.5 in. needle. Complications: No Complications, Hemostasis achieved. NDC: 3292-8212-46 LOT: [id number] [facility] [id number] LOT: [id number] [facility] 06-27-2023 History of Present illness Narrative Patient verified by last name and date of . Images from the original note were not included. 06/27/2023 Reshma Evans (: 1940) is a 82 y.o. female , Established patient, here for evaluation of the following chief complaint(s): Hip Pain (Right ) and Dizziness (When sit up after laying down ) ASSESSMENT/PLAN: 1. Greater trochanteric bursitis of right hip Assessment & Plan: Injection procedure: Location right trochanteric bursa Consent: Verbal Consent Obtained-Discussed risks including hypo/hyperpigmentation, fat atrophy, steroid flare, bleeding and infection and potential consequences of over use of steroids. Prep: Betadine. Anesthesia: 2% lidocaine. Medication: 1 ml depomedrol 40 mg. Needle: 25 gauge 1.5 in. needle. Complications: No Complications, Hemostasis achieved. [facility]: [id number] LOT: [id number] [facility] [id number] LOT: [id number] Orders: - Large Joint Injection/Arthrocentesis - methylPREDNISolone acetate (DEPO-Medrol) injection 40 mg; 40 mg, Intra-artICUlar, Once, On Mon06/27/23 at 1615, For 1 dose - lidocaine (Xylocaine) 2 % injection 4 mL; 4 mL, Injection, Once, On Mon06/27/23 at 1615, For 1 dose 2. Benign paroxysmal positional vertigo of left ear Assessment & Plan: Meclizine 25 mg every 6 hours as needed cautioned about working or driving this will make her drowsy. Referral for vestibular therapy clinic done. Orders: - [facility] Vestibular Therapy [facility] Follow up in about 4 weeks (around 07/25/2023). SUBJECTIVE/OBJECTIVE: HPI -Reshma comes in today for 2 complaints 1 she says when she sits up in bed she gets terribly dizzy like the room is spinning said sometimes if she rolls over in bed it occurs also. This has been ongoing for couple weeks. She said a getting ready to go on a cruise and she figured she better get checked out. She also is complaining of some right hip pain she points to the lateral aspect of the hip he says this also wakes her up when she rolls over on it at night and this has been ongoing for couple weeks also. Review of Systems Constitutional: Negative for chills and fever. HENT: Negative for congestion, sinus pressure and tinnitus. Respiratory: Negative for shortness of breath. Cardiovascular: Negative for chest pain and palpitations. Musculoskeletal: Positive for myalgias. Neurological: Positive for dizziness. Vitals: 06/27/23 1412 BP: 104/61 Pulse: 96 SpO2: 96% Weight: 189 lb 9.6 oz (86 kg) Height: 5' 6 (1.676 m) Physical Exam Vitals and nursing note reviewed. Constitutional: General: She is not in acute distress. Appearance: Normal appearance. HENT: Head: Normocephalic and atraumatic. Right Ear: Tympanic membrane, ear canal and external ear normal. Left Ear: Tympanic membrane, ear canal and external ear normal. Mouth/Throat: Mouth: Mucous membranes are moist. Pharynx: Oropharynx is clear. Eyes: Extraocular Movements: Extraocular movements intact. Pupils: Pupils are equal, round, and reactive to light. Neck: Thyroid: No thyromegaly. Vascular: No carotid bruit. Cardiovascular: Rate and Rhythm: Normal rate and regular rhythm. Heart sounds: Normal heart sounds. No murmur heard. Pulmonary: Effort: Pulmonary effort is normal. Breath sounds: Normal breath sounds. Musculoskeletal: Cervical back: Neck supple. Comments: Tenderness to palpation over the right greater trochanter, she has no pain with internal/external rotation of the hip or flexion or extension of the hip Lymphadenopathy: Cervical: No cervical adenopathy. Neurological: Mental Status: She is alert and oriented to person, place, and time. Comments: Positive Dutch John-Hallpike maneuver to the left An electronic signature was used to authenticate this note. Rachid Neville MD 06/27/2023 4:12 PM documented in this encounter [facility] 05-09-2023 Telephone encounter Note Noted. Will see as scheduled. [facility] 05-09-2023 Miscellaneous Notes Noted. Will see as scheduled. Notified pt, offered appointment for tomorrow but she declines, wants to keep appt on 06/05/23 with you. Called pt but number is disconnected. Imaging will most likely require CT or MRI and will need proper documentation for insurance purposes to see if we can get this approved. Do we have any earlier available appointments we can offer her? Name of caller: Reshma Contact phone number: [phone] Relationship to Patient: patient Provider: Dr Neville Practice: [facility] Chief Complaint/Reason for Call: Reshma called back about dry eye and tumor concern. (See TE from today). Reshma is still concerned about a possibility of a tumor. Reshma thinks she would feel better if she could just have an xray done. Reshma is not scheduled for an appointment with Zoë until 06/05/2023 but would like an xray done before that. Reshma states she just had an appointment with eye doctor in February so she is not sure what other advise the eye doctor would have. Offered Reshma nurse triage but she declined at this time stating she has already spoken to the nurse and would just like to be scheduled for an xray. Please advise. Thanks Best time of day caller can be reached: any Patient advised that office/PCP has 24-48 business hours to return their call: No documented in this encounter [facility] 05-09-2023 Telephone encounter Note Notified pt, offered appointment for tomorrow but she declines, wants to keep appt on 06/05/[address] [facility] 05-08-2023 Telephone encounter Note Called pt but number is disconnected. [facility] 05-05-2023 Telephone encounter Note Imaging will most likely require CT or MRI and will need proper documentation for insurance purposes to see if we can get this approved. Do we have any earlier available appointments we can offer her? [facility] 05-05-2023 Telephone encounter Note Name of caller: Reshma Contact phone number: [phone] Relationship to Patient: patient Provider: Dr Neville Practice: [facility] Chief Complaint/Reason for Call: Reshma called back about dry eye and tumor concern. (See TE from today). Reshma is still concerned about a possibility of a tumor. Reshma thinks she would feel better if she could just have an xray done. Reshma is not scheduled for an appointment with Zoë until 06/05/2023 but would like an xray done before that. Reshma states she just had an appointment with eye doctor in February so she is not sure what other advise the eye doctor would have. Offered Reshma nurse triage but she declined at this time stating she has already spoken to the nurse and would just like to be scheduled for an xray. Please advise. Thanks Best time of day caller can be reached: any Patient advised that office/PCP has 24-48 business hours to return their call: No [facility] 04-24-2023 History of Present illness Narrative Patient was identified by name and Date of . Health Main: AWV-complete today Skin Check-completed PHQ-completed Flu-declined Images from the original note were not included. [address] [id number] Visit type: Established Patient Reason for Visit: Medicare Annual Wellness Visit Initial, Health Maintenance (/AWV-complete today/Skin Check-completed by reynold duncan done 2 weeks ago/PHQ-completed/Flu-declined), and Hypertension Assessment and Plan 1. Medicare annual wellness visit, subsequent - Encouraged a healthy diet low in cholesterol and saturated fats. - Encouraged regular exercise. 2. Type 2 diabetes mellitus with hyperlipidemia (HCC) - CBC - Comprehensive metabolic panel - Hemoglobin A1c - Diabetes Foot Exam - Microalbumin / creatinine, urine ratio - Stable with lifestyle modifications. Will continue current treatment plan. 3. Encounter for diabetic foot exam (HCC) - Diabetes Foot Exam 4. Class 1 obesity due to excess calories with serious comorbidity and body mass index (BMI) of 30.0 to 30.9 in adult - CBC - Comprehensive metabolic panel - Encouraged healthy diet and regular exercise. 5. Essential hypertension - CBC - Comprehensive metabolic panel - Stable with Lisinopril. Will continue current treatment plan. 6. Hyperlipidemia, unspecified hyperlipidemia type - CBC - Comprehensive metabolic panel - Lipid panel - Stable with Simvastatin. Will continue current treatment plan. 7. Urge incontinence - CBC - Comprehensive metabolic panel - Symptoms stable. 8. Frequency of urination - CBC - Comprehensive metabolic panel - Symptoms stable. 9. Arthritis of right hip - CBC - Comprehensive metabolic panel - Stable with PRN Naproxen. Will continue current treatment plan. 10. Tremor - CBC - Comprehensive metabolic panel - Stable with Propranolol. Will continue current treatment plan. 11. Flu vaccine need - Flu vaccine quadrivalent, for patients ages 65+, (Fluad) preservative free - VIS provided in AVS. Follow up in about 6 months (around 10/24/2023) for diabetes management. Omar TOBAR- Reshma presents today for her annual Medicare physical and fasting blood work. Diabetes Mellitus Type II: Current symptoms/problems include none. Previous hemoglobin A1c was 5.9% on 10/24/22. Known diabetic complications: none Cardiovascular risk factors: advanced age (older than 55 for men, 65 for women), diabetes mellitus, dyslipidemia, hypertension, obesity, and sedentary lifestyle Current diabetic medications include None. Eye exam current (within one year): Yes - February 2023 Dental exam current (within one year): Yes - June 2022. Scheduled at the end of this month for her next appointment Weight trend: Has gained 4 pounds over the past 6 months Prior visit with cherry grower: No Current diet: in general, a healthy diet Current exercise: none Current monitoring regimen: none Home blood sugar records: Does not test Any episodes of hypoglycemia? Denies signs or symptoms Is She on EDDIE inhibitor or angiotensin II receptor zully? Yes lisinopril (generic)- blood pressure is stable today at 124/78 Currently on statin therapy? Yes - Simvastatin Last urine microalbumin was less than 6 mg/L on 04/18/22. Will repeat today. Last foot exam was 04/01/22. Will check today. Urge Incontinence/Urinary Frequency: Not currently following up with urology. Not currently taking medications for her symptoms and feel they are stable overall. Arthritis: Will take Naproxen as needed and this works well for her. Tremor: Takes Propranolol as prescribed. Feels symptoms are stable. Health Maintenance: DEXA: 12/14/16. Vaccinated for COVID-19 x2 with the most recent dose on 10/23/20- declines additional vaccinations at this time. Is fully vaccinated for shingles and pneumonia. Tdap current: 12/10/18. Would like a flu vaccination. Saw a steam and power superintendent for skin cancer screening on 04/10/23. I have reviewed and reconciled the medication list with the patient today. Current Outpatient Medications Medication Sig Dispense Refill hydroCHLOROthiazide (Microzide) 12.5 MG capsule Take 1 capsule (12.5 mg) by mouth every morning. 90 capsule 1 Lancets (IMshoppinguch Delica Plus [id number]) [facility] use to TEST BLOOD SUGAR once daily lisinopril 10 MG tablet Take 1 tablet (10 mg) by mouth daily. 90 tablet 1 Naproxen Sodium 220 MG capsule Take by mouth. nystatin (Mycostatin) 766342 UNIT/GM powder Apply 3 times daily. omega-3 (Fish Oil) 1000 MG capsule Take 3,000 mg by mouth. OneTouch Verio test strip use to TEST BLOOD SUGAR once daily and if needed propranolol (Inderal) 20 MG tablet Take 1 tablet (20 mg) by mouth 2 times daily. 180 tablet 1 simvastatin (Zocor) 40 MG tablet Take 1 tablet (40 mg) by mouth Nightly. 90 tablet 1 No current facility-administered medications for this visit. Medications Discontinued During This Encounter Medication Reason ascorbic acid (Vitamin C) 500 MG tablet cholecalciferol (Vitamin D-3) 25 MCG (1000 UT) capsule Docusate Sodium (DSS) 100 MG capsule List of current healthcare providers: Patient Care Team: Rachid Neville MD as PCP - General Over the past 2 weeks, how often have you been bothered by any of the following problems? Trouble falling or staying asleep, or sleeping too much: Not at all Feeling tired or having little energy: Not at all Poor appetite or overeating: Not at all Feeling bad about yourself - or that you are a failure or have let yourself or your family down: Not at all Trouble concentrating on things, such as reading the newspaper or watching television: Not at all Moving or speaking so slowly that other people could have noticed? Or the opposite - being so fidgety or restless that you have been moving around a lot more than usual.: Not at all Thoughts that you would be better off or hurting yourself in some way: Not at all Patient Health Questionnaire-9 Score: 0 Over the last 2 weeks, how often have you been bothered by any of the following problems? Feeling nervous, anxious, or on edge: Not at all Not being able to stop or control worrying: Not at all Worrying too much about different things: Not at all Trouble relaxing: Not at all Being so restless that it is hard to sit still: Not at all Becoming easily annoyed or irritable: Not at all Feeling afraid as if something awful might happen: Not at all NEAL-7 Total Score: 0 The following health maintenance schedule was reviewed with the patient and provided in printed form in the after visit summary: Health Maintenance Topic Date Due COVID-19 Vaccine (3 - Moderna series) 10/25/2023 (Originally 12/18/2020) Influenza Vaccine (1) 01/07/2024 (Originally 03/10/2023) Derm Melanoma Skin Check 10/10/2023 Depression Screening 04/24/2024 Medicare Advantage Annual Wellness Visit (AWV) 05/24/2024 DTaP/Tdap/Td Vaccines (2 - Td or Tdap) 12/10/2028 Hepatitis B Vaccines Completed Pneumococcal Vaccine: 65+ Years Completed Zoster Vaccines Completed Bone Density Scan Completed HIB Vaccines Aged Out IPV Vaccines Aged Out Hepatitis A Vaccines Aged Out Meningococcal Vaccine Aged Out Rotavirus Vaccines Aged Out HPV Vaccines Aged Out Orders Placed This Encounter Procedures Flu vaccine quadrivalent, for patients ages 65+, (Fluad) preservative free CBC Standing Status: Future Number of Occurrences: 1 Standing Expiration Date: 04/24/2024 Comprehensive metabolic panel Standing Status: Future Number of Occurrences: 1 Standing Expiration Date: 04/24/2024 Lipid panel Standing Status: Future Number of Occurrences: 1 Standing Expiration Date: 04/24/2024 Hemoglobin A1c Standing Status: Future Number of Occurrences: 1 Standing Expiration Date: 04/24/2024 Microalbumin / creatinine, urine ratio Standing Status: Future Number of Occurrences: 1 Standing Expiration Date: 04/24/2024 Diabetes Foot Exam Health Risk Assessment: General In general, how would you say your health is?: Good In the past 7 days, have you experienced any of the following: New or Increased Pain, New or Increased Fatigue, Loneliness, Social Isolation, Stress or Anger?: No Do you get the social and emotional suppport you need?: Yes Interventions: N/A Health Habits / Nutrition On average, how many days per week do you engage in moderate to strenous exercise (like a brisk walk)?: 1 day On average, how man minutes do you engage in exercise at this level?: 20 min Have you lost any weight without trying in the past 3 months? : No Have you seen the dentist within the past year?: Appointment is scheduled Interventions: N/A Hearing / Vision Do you or your family notice any trouble with your hearing that hasn't been managed with hearing aids?: No Do you have difficulty driving, watching TV, or doing any of your daily activities because of your eyesight?: No Have you had an eye exam within the past year?: Yes No results found. Interventions: N/A Safety Do you have a working smoke detector?: Yes Do you have any tripping hazards - loose or unsecured carpets or rugs?: No Do you have any tripping hazards - clutter in doorways, halls, or stairs?: No Do you have either shower bars, grab bars, non-slip mats or non-slip surfaces in your shower or bathtub? : Yes Do all your stairways have a railing or banister? : Yes Do you fasten your seatbelt when you are in a car?: Yes Interventions: N/A ADL In the past 7 days, did you need help from others to perform any of the following everyday activities: Eating, dressing, grooming,bathing, toileting, or walking / balance? : No In the past 7 days, did you need help from others to take care of any of the following: laundry, housekeeping, banking / finances,shopping, telephone use, food preparation, transportation, or taking medications? : No Interventions: N/A Living Will Do you have a living will?: Yes Interventions: N/A Cognitive: Cognitive Screening: Mini-Cog Clock Drawing Test (CDT): 2 Words Recalled: 2 Total Score: 4 Total Score Interpretation: Normal Mini-Cog Hypertension: Yes Interventions: N/A Fall Risk: 04/24/2023 0940 Fall Risk One or more falls in the last year: No Advised to use a cane or walker to get around safely: No Feels unsteady when walking: No Steadies self on furniture while walking at home: No Worried about falling: No Interventions: Home safety tips provided Depression Screening: Over the past 2 weeks, how often have you been bothered by any of the following problems? Little interest or pleasure in doing things: Not at all Feeling down, depressed, or hopeless: Not at all Patient Health Questionnaire-2 Score: 0 Over the past 2 weeks, how often have you been bothered by any of the following problems? Trouble falling or staying asleep, or sleeping too much: Not at all Feeling tired or having little energy: Not at all Poor appetite or overeating: Not at all Feeling bad about yourself - or that you are a failure or have let yourself or your family down: Not at all Trouble concentrating on things, such as reading the newspaper or watching television: Not at all Moving or speaking so slowly that other people could have noticed? Or the opposite - being so fidgety or restless that you have been moving around a lot more than usual.: Not at all Thoughts that you would be better off or hurting yourself in some way: Not at all Patient Health Questionnaire-9 Score: 0 If you checked off any problems on this questionnaire so far, How difficult have these problems made it for you to do your work, take care of things at home, or get along with other people?: Not difficult at all Calvin Suicide Severity Rating Scale (Screener/Recent Self-Report) 1. Wish to be (Past 1 Month): No 2. Non-Specific Active Suicidal Thoughts (Past 1 Month): No 6. Suicidal Behavior (Lifetime): No Calculated C-SSRS Risk Score (Lifetime/Recent): No Risk Indicated Interventions: N/A Tobacco Use: Social History Tobacco Use Smoking Status Never Smokeless Tobacco Never Interventions: N/A Alcohol Use: Interventions: N/A Drug Use: Interventions: N/A Review of Systems Constitutional: Negative for chills and fever. HENT: Negative for hearing loss and trouble swallowing. Eyes: Negative for pain and visual disturbance. Respiratory: Negative for cough, chest tightness, shortness of breath and wheezing. Cardiovascular: Negative for chest pain, palpitations and leg swelling. Gastrointestinal: Negative for abdominal distention, abdominal pain, blood in stool, constipation and diarrhea. Endocrine: Negative for polydipsia, polyphagia and polyuria. Genitourinary: Positive for frequency and urgency. Negative for dysuria and hematuria. Musculoskeletal: Positive for arthralgias. Skin: Negative for color change, pallor, rash and wound. Neurological: Positive for tremors. Negative for dizziness, syncope, weakness and headaches. Hematological: Does not bruise/bleed easily. Psychiatric/Behavioral: Negative for dysphoric mood. The patient is not nervous/anxious. Immunization History Administered Date(s) Administered Hep A, ped/adol, 2 dose 01/01/2008, 07/07/2008 Hep B, adult 01/01/2008, 02/04/2008, 07/07/2008 Influenza, High-dose Seasonal, Quadrivalent, Preservative Free 03/26/2020, 06/08/2021 Moderna SARS-CoV-2 Vaccination 09/09/2020, 10/23/2020 Pneumococcal Conjugate PCV 13 01/23/2017 Pneumococcal Polysaccharide PPSV23 11/12/2018 Tdap 12/10/2018 Tetanus toxoid, adsorbed 01/01/2008 Typhoid, ViCPs 01/01/2008 Zoster, Recombinant 10/28/2018, 11/27/2018, 03/14/2019 No Known Allergies Outpatient Medications Prior to Visit Medication Sig Dispense Refill hydroCHLOROthiazide (Microzide) 12.5 MG capsule Take 1 capsule (12.5 mg) by mouth every morning. 90 capsule 1 Lancets (OnaroTouch Delica Plus [id number]) mis use to TEST BLOOD SUGAR once daily lisinopril 10 MG tablet Take 1 tablet (10 mg) by mouth daily. 90 tablet 1 Naproxen Sodium 220 MG capsule Take by mouth. nystatin (Mycostatin) 901288 UNIT/GM powder Apply 3 times daily. omega-3 (Fish Oil) 1000 MG capsule Take 3,000 mg by mouth. OnaroTouch Verio test strip use to TEST BLOOD SUGAR once daily and if needed propranolol (Inderal) 20 MG tablet Take 1 tablet (20 mg) by mouth 2 times daily. 180 tablet 1 simvastatin (Zocor) 40 MG tablet Take 1 tablet (40 mg) by mouth Nightly. 90 tablet 1 ascorbic acid (Vitamin C) 500 MG tablet Take by mouth. cholecalciferol (Vitamin D-3) 25 MCG (1000 UT) capsule Take by mouth. Docusate Sodium (DSS) 100 MG capsule Take 100 mg by mouth in the morning and 100 mg before bedtime. No facility-administered medications prior to visit. Past Medical History: Diagnosis Date Acute right-sided low back pain without sciatica 12/07/2021 Brain tumor (benign) (HCC) Bursitis Cystocele Diabetes mellitus (HCC) DJD (degenerative joint disease) Female stress incontinence Hyperlipidemia Hypertension Mixed stress and urge urinary incontinence Skin cancer Varicose veins Social History Socioeconomic History Marital status: Tobacco Use Smoking status: Never Smokeless tobacco: Never Vaping Use Vaping Use: Never used Substance and Sexual Activity Alcohol use: Yes Alcohol/week: 0.0 standard drinks of alcohol Drug use: No Past Surgical History: Procedure Laterality Date BRAIN TUMOR EXCISION CARPAL TUNNEL RELEASE 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 COLONOSCOPY EYE SURGERY Right cataract ROTATOR CUFF REPAIR TOTAL KNEE ARTHROPLASTY Past Surgical History: Procedure Laterality Date BRAIN TUMOR EXCISION CARPAL TUNNEL RELEASE 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 Appearance: Not ill-appearing or diaphoretic. HENT: Head: Normocephalic and atraumatic. Right Ear: Tympanic membrane, ear canal and external ear normal. Left Ear: Tympanic membrane, ear canal and external ear normal. Nose: Nose normal. No congestion or rhinorrhea. Mouth/Throat: Mouth: Mucous membranes are moist. Pharynx: Oropharynx is clear. No oropharyngeal exudate or posterior oropharyngeal erythema. Eyes: General: No scleral icterus. Extraocular Movements: Extraocular movements intact. Pupils: Pupils are equal, round, and reactive to light. Neck: Thyroid: No thyroid mass or thyromegaly. Vascular: No carotid bruit. Cardiovascular: Rate and Rhythm: Normal rate and regular rhythm. Pulses: Normal pulses. Heart sounds: Normal heart sounds. No murmur heard. No friction rub. Pulmonary: Effort: Pulmonary effort is normal. Breath sounds: Normal breath sounds. No wheezing, rhonchi or rales. Abdominal: General: Bowel sounds are normal. Palpations: Abdomen is soft. There is no hepatomegaly, splenomegaly or mass. Tenderness: There is no abdominal tenderness. Protuberant abdomen impairing examination. Musculoskeletal: General: No deformity. Normal range of motion. Cervical back: Normal range of motion and neck supple. Right lower leg: No edema. Left lower leg: No edema. Lymphadenopathy: Cervical: No cervical adenopathy. Skin: General: Skin is warm and dry. Coloration: Skin is not jaundiced or pale. Findings: No erythema. Diabetic foot check: Normal strength and range of motion of toes, feet, and ankles bilaterally. No joint deformity. No cyanosis or clubbing. 100% sensation with 10 gram filament. Dorsalis pedis pulses intact bilaterally. Capillary refill at the toes was less than 2 seconds. Light touch sensation intact bilaterally. Hair growth present on feet and toes bilaterally. No skin breakdown, erythema, rub spots, blisters, scaling, or ulcers. No calluses or corns. Toenails thin and not ingrown. No evidence of fungal infection. Neurological: Mental Status: Alert and oriented to person, place, and time. Motor: No weakness. Gait: Gait normal. Resting head tremor noted. Psychiatric: Mood and Affect: Mood normal. Behavior: Behavior normal. Thought Content: Thought content normal. Judgment: Judgment normal. Data Reviewed Labs: Imaging/Testing: IFEANYI Fernandes CNP 04/24/2023 10:06 AM After obtaining consent, and per orders of Zoë Kaplan CNP, injection of high dose flu vaccine given in right deltoid by Serina De Leon. Patient instructed to report any adverse reaction immediately. documented in this encounter [facility] 03-10-2023 Telephone encounter Note Ordering provider: Eusebio Date of last office visit: 11/14/2022 Date of next office visit: 04/24/2023 Updated/Validated preferred pharmacy: Yes Patient instructed to contact the pharmacy prior to picking up the medication: No (1) Medication name: hydroCHLOROthiazide (Microzide) 12.5 MG capsule Medication dosage: 12.5 mg (Miligrams Monthly quantity needed: 30 How many day supply requestin days Medication route: oral (PO) Medication administration time(s): daily If taking medication PRN, reason for taking medication: N/A If this is a controlled substance do you receive this or any other controlled medication from any other doctor or facility: No Date of last refill (see medication tab): 10/13/2022 (2) Medication name: lisinopril 10 MG tablet Medication dosage: 10 mg (Miligrams Monthly quantity needed: 30 How many day supply requestin days Medication route: oral (PO) Medication administration time(s): daily If taking medication PRN, reason for taking medication: N/A If this is a controlled substance do you receive this or any other controlled medication from any other doctor or facility: No Date of last refill (see medication tab): 10/13/2022 (3) Medication name: propranolol (Inderal) 20 MG tablet Medication dosage: 20 mg (Miligrams Monthly quantity needed: 60 How many day supply requestin days Medication route: oral (PO) Medication administration time(s): 2 times a day (BID) If taking medication PRN, reason for taking medication: N/A If this is a controlled substance do you receive this or any other controlled medication from any other doctor or facility: No Date of last refill (see medication tab): 10/13/2022 (4) Medication name: simvastatin (Zocor) 40 MG tablet Medication dosage: 40 mg (Miligrams Monthly quantity needed: 30 How many day supply requestin days Medication route: oral (PO) Medication administration time(s): bedtime (HS) If taking medication PRN, reason for taking medication: N/A If this is a controlled substance do you receive this or any other controlled medication from any other doctor or facility: No Date of last refill (see medication tab): 10/13/2022 [facility] 03-10-2023 Miscellaneous Notes Ordering provider: Eusebio Date of last office visit: 11/14/2022 Date of next office visit: 04/24/2023 Updated/Validated preferred pharmacy: Yes Patient instructed to contact the pharmacy prior to picking up the medication: No (1) Medication name: hydroCHLOROthiazide (Microzide) 12.5 MG capsule Medication dosage: 12.5 mg (Miligrams Monthly quantity needed: 30 How many day supply requestin days Medication route: oral (PO) Medication administration time(s): daily If taking medication PRN, reason for taking medication: N/A If this is a controlled substance do you receive this or any other controlled medication from any other doctor or facility: No Date of last refill (see medication tab): 10/13/2022 (2) Medication name: lisinopril 10 MG tablet Medication dosage: 10 mg (Miligrams Monthly quantity needed: 30 How many day supply requestin days Medication route: oral (PO) Medication administration time(s): daily If taking medication PRN, reason for taking medication: N/A If this is a controlled substance do you receive this or any other controlled medication from any other doctor or facility: No Date of last refill (see medication tab): 10/13/2022 (3) Medication name: propranolol (Inderal) 20 MG tablet Medication dosage: 20 mg (Miligrams Monthly quantity needed: 60 How many day supply requestin days Medication route: oral (PO) Medication administration time(s): 2 times a day (BID) If taking medication PRN, reason for taking medication: N/A If this is a controlled substance do you receive this or any other controlled medication from any other doctor or facility: No Date of last refill (see medication tab): 10/13/2022 (4) Medication name: simvastatin (Zocor) 40 MG tablet Medication dosage: 40 mg (Miligrams Monthly quantity needed: 30 How many day supply requestin days Medication route: oral (PO) Medication administration time(s): bedtime (HS) If taking medication PRN, reason for taking medication: N/A If this is a controlled substance do you receive this or any other controlled medication from any other doctor or facility: No Date of last refill (see medication tab): 10/13/2022 documented in this encounter [facility] 11-14-2022 History of Present illness Narrative Images from the original note were not included. Patient Reshma Evans 82 y.o. female, presents today with Chief Complaint Patient presents with shave biopsy Left upper back . HPI- Reshma Evans presents today for a shave biopsy of two skin lesions on her left upper back. States the lesions have been present for over 3 months and have gotten larger in size. States they itch as well. Denies open areas or drainage. States her back does get sun when in [place]. States the area will rub on her bra and it is uncomfortable. 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 COLONOSCOPY EYE SURGERY Right cataract ROTATOR CUFF REPAIR TOTAL KNEE ARTHROPLASTY Family History Problem Relation Name Age of Onset No Known Problems Mother No Known Problems Father High Blood Pressure Brother High Blood Pressure Sister Social History Socioeconomic History Marital status: Spouse name: Not on file Number of children: Not on file Years of education: Not on file Highest education level: Not on file Occupational History Not on file Tobacco Use Smoking status: Never Smokeless tobacco: Never Substance and Sexual Activity Alcohol use: Yes Alcohol/week: 0.0 standard drinks Drug use: No Sexual activity: Not on file Other Topics Concern Not on file Social History Narrative Not on file Social Determinants of Health Financial Resource Strain: Not on file Food Insecurity: Not on file Transportation Needs: Not on file Physical Activity: Not on file Stress: Not on file Social Connections: Not on file Intimate Partner Violence: Not on file Housing Stability: Not on file Health Maintenance Topic Date Due Derm Melanoma Skin Check Never done Depression Screening Never done Diabetes: Foot Exam 04/01/2023 (Originally 1950) COVID-19 Vaccine (3 - Booster for Moderna series) 10/25/2023 (Originally 12/18/2020) Diabetes: Hemoglobin A1C 01/23/2023 Influenza Vaccine (Season Ended) 2023 Lipid Panel 04/01/2023 Diabetes: Urine Protein Screening 04/18/2023 Diabetes: Dental Exam 06/09/2023 Diabetes: Retinopathy Screening 02/08/2024 DTaP/Tdap/Td Vaccines (2 - Td or Tdap) 12/10/2028 Hepatitis B Vaccines Completed Pneumococcal Vaccine: 65+ Years Completed Zoster Vaccines Completed Bone Density Scan Completed HIB Vaccines Aged Out IPV Vaccines Aged Out Hepatitis A Vaccines Aged Out Meningococcal Vaccine Aged Out Rotavirus Vaccines Aged Out HPV Vaccines Aged Out No Known Allergies Review of Systems Skin: Positive for color change. There were no vitals taken for this visit. Physical Exam Skin: Shave Biopsy: #1 Reason: Neoplasm of uncertain behavior Location: Left upper back Size: 6 mm Procedure Consent was obtained, prepped with betadine, anesthetized with 2% lidocaine w/ epi 1 ml. Petronila-blade was used to remove lesion completely. Hemostasis obtained with electrocautery. Dressing applied. Instructed to watch for signs of infection and call or return. Shave Biopsy: #2 Reason: Neoplasm of uncertain behavior Location: left upper back Size: 4 mm Procedure Consent was obtained, prepped with betadine, anesthetized with 2% lidocaine w/ epi 1 ml. Petronila-blade was used to remove lesion completely. Hemostasis obtained with electrocautery. Dressing applied. Instructed to watch for signs of infection and call or return. Assessment and Plan: 1. Neoplasm of uncertain behavior of skin of back - Tissue exam - Tissue exam - Will notify of results once obtained. - Keep area clean and dry. - May apply topical antibiotic cream. - Instructed to watch for signs of infection and discussed signs of symptoms of infection- verbalized understanding. Discussed use, benefit, and side effects of prescribed medications. Barriers to medication compliance addressed. All patient questions answered. Pt voiced understanding. Follow up if symptoms worsen or fail to improve. Outpatient Encounter Medications as of 11/14/2022 Medication Sig Dispense Refill ascorbic acid (Vitamin C) 500 MG tablet Take by mouth. cholecalciferol (Vitamin D-3) 25 MCG (1000 UT) capsule Take by mouth. Docusate Sodium (DSS) 100 MG capsule Take 100 mg by mouth in the morning and 100 mg before bedtime. hydroCHLOROthiazide (Microzide) 12.5 MG capsule Take 1 capsule (12.5 mg) by mouth every morning. 90 capsule 1 Lancets (OneTouch Delica Plus [id number]) [facility] use to TEST BLOOD SUGAR once daily lisinopril 10 MG tablet Take 1 tablet (10 mg) by mouth daily. 90 tablet 1 Naproxen Sodium 220 MG capsule Take by mouth. nystatin (Mycostatin) 542479 UNIT/GM powder Apply 3 times daily. omega-3 (Fish Oil) 1000 MG capsule Take 3,000 mg by mouth. [employer] Verio test strip use to TEST BLOOD SUGAR once daily and if needed propranolol (Inderal) 20 MG tablet Take 1 tablet (20 mg) by mouth 2 times daily. 180 tablet 1 simvastatin (Zocor) 40 MG tablet Take 1 tablet (40 mg) by mouth Nightly. 90 tablet 1 No facility-administered encounter medications on file as of 11/14/2022. IFEANYI Fernandes CNP 11/14/2022 11:56 AM documented in this encounter [facility] [employer] 10-24-2022 History of Present illness Narrative Images from the original note were not included. Patient Reshma Evans 82 y.o. female, presents today with Chief Complaint Patient presents with Hypertension Hyperlipidemia Diabetes Medication Check Health Maintenance DEXA--declines, DM eye-- goes every february, Dental--went in , COVID 3--has not had . HPI- Reshma Evans presents today for follow up on her diabetes and other chronic health conditions. Previous hemoglobin A1c was 6.1% on 04/01/22. Diabetes Mellitus Type II: Current symptoms/problems include none. Known diabetic complications: none Cardiovascular risk factors: advanced age (older than 55 for men, 65 for women), diabetes mellitus, dyslipidemia, hypertension, and sedentary lifestyle Current diabetic medications include None. Eye exam current (within one year): Yes - February 2022 Dental exam current (within one year): Yes - June 2022 Weight trend: Has lost 10 pounds over the past 6 months Prior visit with cherry grower: No Current diet: in general, a healthy diet Current exercise: none Current monitoring regimen: none Home blood sugar records: Does not test Any episodes of hypoglycemia? Denies signs or symptoms Is She on EDDIE inhibitor or angiotensin II receptor zully? Yes lisinopril (generic)- blood pressure is stable today at 120/74 Currently on statin therapy? Yes - Simvastatin Last urine microalbumin was less than 6 mg/L on 04/18/22. Last foot exam was 04/01/22. Has an area on her upper back that has been present for over 3 months that has gotten larger in size. State it itches. Denies open areas or drainage. Would like this looked at today. States her back does get sun when in [place]. States the area will rib on her bra and it is uncomfortable. Health Maintenance: DEXA: 12/14/16. Vaccinated for COVID-19 x2 with the most recent dose on 10/23/20- declines additional vaccinations at this time. Is fully vaccinated for shingles and pneumonia. Tdap current: 12/10/18. 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 COLONOSCOPY EYE SURGERY Right cataract ROTATOR CUFF REPAIR TOTAL KNEE ARTHROPLASTY Family History Problem Relation Name Age of Onset No Known Problems Mother No Known Problems Father High Blood Pressure Brother High Blood Pressure Sister Social History Socioeconomic History Marital status: Spouse name: Not on file Number of children: Not on file Years of education: Not on file Highest education level: Not on file Occupational History Not on file Tobacco Use Smoking status: Never Smokeless tobacco: Never Substance and Sexual Activity Alcohol use: Yes Alcohol/week: 0.0 standard drinks Drug use: No Sexual activity: Not on file Other Topics Concern Not on file Social History Narrative Not on file Social Determinants of Health Financial Resource Strain: Not on file Food Insecurity: Not on file Transportation Needs: Not on file Physical Activity: Not on file Stress: Not on file Social Connections: Not on file Intimate Partner Violence: Not on file Housing Stability: Not on file Health Maintenance Topic Date Due Diabetes: Hemoglobin A1C 07/01/2022 Diabetes: Foot Exam 04/01/2023 (Originally 1950) COVID-19 Vaccine (3 - Booster for Moderna series) 10/25/2023 (Originally 12/18/2020) Influenza Vaccine (Season Ended) 2023 Lipid Panel 04/01/2023 Diabetes: Urine Protein Screening 04/18/2023 Diabetes: Dental Exam 06/09/2023 Diabetes: Retinopathy Screening 02/08/2024 DTaP/Tdap/Td Vaccines (2 - Td or Tdap) 12/10/2028 Hepatitis B Vaccines Completed Pneumococcal Vaccine: 65+ Years Completed Zoster Vaccines Completed Bone Density Scan Completed HIB Vaccines Aged Out IPV Vaccines Aged Out Hepatitis A Vaccines Aged Out Meningococcal Vaccine Aged Out Rotavirus Vaccines Aged Out HPV Vaccines Aged Out No Known Allergies Review of Systems Constitutional: Negative for chills and fever. Respiratory: Negative for chest tightness and shortness of breath. Cardiovascular: Negative for chest pain, palpitations and leg swelling. Gastrointestinal: Negative for abdominal distention, abdominal pain and blood in stool. Endocrine: Negative for polydipsia, polyphagia and polyuria. Skin: Positive for color change. Negative for pallor, rash and wound. Neurological: Negative for dizziness, syncope, weakness and headaches. BP 120/74 Pulse 63 Ht 5' 6 (1.676 m) Wt 182 lb (82.6 kg) SpO2 98% BMI 29.38 kg/m Physical Exam Constitutional: General: She is not in acute distress. Appearance: She is not ill-appearing or diaphoretic. Neck: Vascular: No carotid bruit. Cardiovascular: Rate and Rhythm: Normal rate and regular rhythm. Pulses: Normal pulses. Heart sounds: Normal heart sounds. No murmur heard. No friction rub. Pulmonary: Effort: Pulmonary effort is normal. Breath sounds: Normal breath sounds. No wheezing, rhonchi or rales. Abdominal: General: Bowel sounds are normal. Palpations: Abdomen is soft. There is no hepatomegaly, splenomegaly or mass. Tenderness: There is no abdominal tenderness. Musculoskeletal: Cervical back: Neck supple. Right lower leg: No edema. Left lower leg: No edema. Skin: General: Skin is warm and dry. Coloration: Skin is not pale. Findings: No erythema. Neurological: Mental Status: She is alert and oriented to person, place, and time. Psychiatric: Mood and Affect: Mood normal. Behavior: Behavior normal. Thought Content: Thought content normal. Judgment: Judgment normal. Assessment and Plan: 1. Type 2 diabetes mellitus without complication, without long-term current use of insulin ([facility]/HCC) ([facility]) - Hemoglobin A1c - Basic metabolic panel - Symptoms stable. Will notify of blood work results and provide recommendations accordingly. - Continue healthy diet. 2. Overweight (BMI 25.0-29.9) - Basic metabolic panel - Continue healthy diet. Encouraged regular exercise. 3. Essential hypertension - Basic metabolic panel - Stable with Lisinopril. Will continue current treatment plan. 4. Hyperlipidemia, unspecified hyperlipidemia type - Stable with Simvastatin. Will continue current treatment plan. 5. Neoplasm of uncertain behavior of skin of back - Return for shave biopsy. Discussed use, benefit, and side effects of prescribed medications. Barriers to medication compliance addressed. All patient questions answered. Pt voiced understanding. Follow up for shave biopsy left upper back and then in 6 months for AWV. Outpatient Encounter Medications as of 10/24/2022 Medication Sig Dispense Refill ascorbic acid (Vitamin C) 500 MG tablet Take by mouth. cholecalciferol (Vitamin D-3) 25 MCG (1000 UT) capsule Take by mouth. Docusate Sodium (DSS) 100 MG capsule Take 100 mg by mouth in the morning and 100 mg before bedtime. hydroCHLOROthiazide (Microzide) 12.5 MG capsule Take 1 capsule (12.5 mg) by mouth every morning. 90 capsule 1 Lancets (OnaroTouch Delica Plus [id number]) [facility] use to TEST BLOOD SUGAR once daily lisinopril 10 MG tablet Take 1 tablet (10 mg) by mouth daily. 90 tablet 1 Naproxen Sodium 220 MG capsule Take by mouth. nystatin (Mycostatin) 042145 UNIT/GM powder Apply 3 times daily. omega-3 (Fish Oil) 1000 MG capsule Take 3,000 mg by mouth. [employer] Verio test strip use to TEST BLOOD SUGAR once daily and if needed propranolol (Inderal) 20 MG tablet Take 1 tablet (20 mg) by mouth 2 times daily. 180 tablet 1 simvastatin (Zocor) 40 MG tablet Take 1 tablet (40 mg) by mouth Nightly. 90 tablet 1 No facility-administered encounter medications on file as of 10/24/2022. IFEANYI Fernandes CNP 10/24/2022 11:13 AM documented in this encounter [facility] Evaluation note Diagnosis Type 2 diabetes mellitus without complication, without long-term current use of insulin ([facility]) (HCC)- Primary Overweight (BMI 25.0-29.9) Overweight Essential hypertension Unspecified essential hypertension Hyperlipidemia, unspecified hyperlipidemia type Neoplasm of uncertain behavior of skin of back [facility]* Diagnosis Neoplasm of uncertain behavior of skin of back- Primary [facility]* Diagnosis Neoplasm of uncertain behavior of skin of back- Primary [facility]* Diagnosis Medicare annual wellness visit, subsequent- Primary Type 2 diabetes mellitus with hyperlipidemia ([facility]) Encounter for diabetic foot exam (HCC) Class 1 obesity due to excess calories with serious comorbidity and body mass index (BMI) of 30.0 to 30.9 in adult Essential hypertension Unspecified essential hypertension Hyperlipidemia, unspecified hyperlipidemia type Urge incontinence Frequency of urination Urinary frequency Arthritis of right hip Tremor Abnormal involuntary movements Flu vaccine need documented in this encounter [facility] note* Diagnosis Greater trochanteric bursitis of right hip- Primary Benign paroxysmal positional vertigo of left ear [facility]* Diagnosis Benign paroxysmal positional vertigo of left ear [facility]* Diagnosis Nasal congestion- Primary Other diseases of nasal cavity and sinuses Acute cough [facility]* Diagnosis Acute left-sided low back pain with left-sided sciatica- Primary Type 2 diabetes mellitus with hyperlipidemia (HCC) (HCC) documented in this encounter [facility] note* Diagnosis Unspecified [facility]ophthalmos [facility] Diagnosis Poison ro- Primary Contact dermatitis and other eczema due to plants (except food) documented in this encounter [facility] note* Diagnosis SDH (subdural hematoma) (HCC)- Primary Subdural hemorrhage Meningioma, cerebral (HCC) [facility]* Diagnosis SDH (subdural hematoma) (HCC) Subdural hemorrhage Meningioma, cerebral (HCC) documented in this encounter [facility] note* Diagnosis Benign neoplasm of meninges (HCC)- Primary Benign neoplasm of cerebral meninges Subdural hematoma (HCC) Subdural hemorrhage [facility]* Diagnosis Coccyx pain- Primary Other disorder of coccyx Coccyx pain Other disorder of coccyx [facility]* Diagnosis Coccyx pain Other disorder of coccyx [facility] Diagnosis Benign neoplasm of meninges (HCC) Benign neoplasm of cerebral meninges [facility]* Diagnosis Intracranial meningioma (HCC)- Primary Neoplasm of uncertain behavior of meninges Flu vaccine need documented in this encounter [facility] note* Diagnosis Benign meningioma (HCC)- Primary Benign neoplasm of cerebral meninges Benign meningioma (HCC) Benign neoplasm of cerebral meninges documented in this encounter [facility] note* Diagnosis Pre-operative clearance- Primary Unspecified pre-operative examination Intracranial meningioma (HCC) Neoplasm of uncertain behavior of meninges Skin yeast infection Candidiasis of skin and nails documented in this encounter [facility]* Diagnosis Benign meningioma (HCC)- Primary Benign neoplasm of cerebral meninges Mixed hyperlipidemia Primary hypertension Unspecified essential hypertension Pre-op examination Preoperative examination, unspecified Intracranial meningioma (HCC) Benign neoplasm of cerebral meninges Type 2 diabetes mellitus without complication, without long-term current use of insulin (HCC) KIMBERLY (obstructive sleep apnea) Obstructive sleep apnea (adult) (pediatric) Benign meningioma (HCC) Benign neoplasm of cerebral meninges * Assessment & Plan Note - Ericka Winters APRN.CNP - 04/18/2024 12:42 PM EDT Associated Problem(s): KIMBERLY (obstructive sleep apnea) Reports no need for CPAP for a long time , more than 20 years * Assessment & Plan Note - Ericka Winters APRN.CNP - 04/18/2024 12:40 PM EDT Associated Problem(s): Type 2 diabetes mellitus without complication, without long-term current useof insulin (HCC) Reports diet controlled Used to take medications - not on any medication for more than 20 years * Assessment & Plan Note - Ericka Winters APRN.CNP - 04/16/2024 3:12 PM EDT Associated Problem(s): Pre-op examination Medical conditions which may affect the perioperative course were address in today's visit. * Assessment & Plan Note - Ericka Winters APRN.CNP - 04/16/2024 3:12 PM EDT Associated Problem(s): HTN (hypertension) On Lisinopril, propranolol, HCTZ Instructed to hold lisinopril DOS and take HCTZ and propranolol DOS * Assessment & Plan Note - Ericka Winters APRN.CNP - 04/16/2024 3:11 PM EDT Associated Problem(s): Hyperlipidemia Stable on statin Instructed to take DOS * Assessment & Plan Note - Ericka Winters APRN.CNP - 04/16/2024 3:11 PM EDT Associated Problem(s): Benign meningioma (HCC) Surgery scheduled 04/26/24 [facility] Diagnosis Intracranial meningioma (HCC)- Primary Benign neoplasm of cerebral meninges Benign meningioma (HCC)- Primary Benign neoplasm of cerebral meninges Mixed hyperlipidemia Primary hypertension Unspecified essential hypertension Pre-op examination Preoperative examination, unspecified Intracranial meningioma (HCC) Benign neoplasm of cerebral meninges Type 2 diabetes mellitus without complication, without long-term current use of insulin (HCC) KIMBERLY (obstructive sleep apnea) Obstructive sleep apnea (adult) (pediatric) Benign meningioma (HCC) Benign neoplasm of cerebral meninges [facility] Diagnosis Benign meningioma (HCC)- Primary Benign neoplasm of cerebral meninges Mixed hyperlipidemia Primary hypertension Unspecified essential hypertension Pre-op examination Preoperative examination, unspecified Intracranial meningioma (HCC) Benign neoplasm of cerebral meninges Type 2 diabetes mellitus without complication, without long-term current use of insulin (HCC) KIMBERLY (obstructive sleep apnea) Obstructive sleep apnea (adult) (pediatric) Intracranial meningioma (HCC) Benign neoplasm of cerebral meninges Benign meningioma (HCC) Benign neoplasm of cerebral meninges [facility] Diagnosis Benign meningioma (HCC)- Primary Benign neoplasm of cerebral meninges Mixed hyperlipidemia Primary hypertension Unspecified essential hypertension Pre-op examination Preoperative examination, unspecified Intracranial meningioma (HCC) Benign neoplasm of cerebral meninges Type 2 diabetes mellitus without complication, without long-term current use of insulin (HCC) KIMBERLY (obstructive sleep apnea) Obstructive sleep apnea (adult) (pediatric) Pre-op testing- Primary Preoperative examination, unspecified Urinary tract infection without hematuria, site unspecified Benign meningioma (HCC) Benign neoplasm of cerebral meninges documented in this encounter [facility]* Diagnosis Unspecified exophthalmos- Primary Unspecified exophthalmos Unspecified exophthalmos documented in this encounter [facility] note* Diagnosis Meningioma (HCC)- Primary Benign neoplasm of cerebral meninges Benign meningioma (HCC) Benign neoplasm of cerebral meninges HTN (hypertension) Unspecified essential hypertension Hyperlipidemia Other and unspecified hyperlipidemia KIMBERLY (obstructive sleep apnea) Obstructive sleep apnea (adult) (pediatric) Type 2 diabetes mellitus without complication, without long-term current use of insulin (HCC) Benign meningioma (HCC)- Primary Benign neoplasm of cerebral meninges Mixed hyperlipidemia Primary hypertension Unspecified essential hypertension Pre-op examination Preoperative examination, unspecified Intracranial meningioma (HCC) Benign neoplasm of cerebral meninges Type 2 diabetes mellitus without complication, without long-term current use of insulin (HCC) KIMBERLY (obstructive sleep apnea) Obstructive sleep apnea (adult) (pediatric) Intracranial meningioma (HCC) Benign neoplasm of cerebral meninges documented in this encounter [facility] note* Diagnosis Meningioma (HCC)- Primary Benign neoplasm of cerebral meninges Benign meningioma (HCC) Benign neoplasm of cerebral meninges HTN (hypertension) Unspecified essential hypertension Hyperlipidemia Other and unspecified hyperlipidemia KIMBERLY (obstructive sleep apnea) Obstructive sleep apnea (adult) (pediatric) Type 2 diabetes mellitus without complication, without long-term current use of insulin (HCC) 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, nonruptured Aphasia Seizure (HCC) Other convulsions Benign meningioma (HCC)- Primary Benign neoplasm of cerebral meninges Mixed hyperlipidemia Primary hypertension Unspecified essential hypertension Pre-op examination Preoperative examination, unspecified Intracranial meningioma (HCC) Benign neoplasm of cerebral meninges Type 2 diabetes mellitus without complication, without long-term current use of insulin (HCC) KIMBERLY (obstructive sleep apnea) Obstructive sleep apnea (adult) (pediatric) Intracranial meningioma (HCC)- Primary Benign neoplasm of cerebral meninges documented in this encounter [facility] note* Diagnosis Greater trochanteric bursitis of right hip- Primary Benign paroxysmal positional vertigo of left ear Nasal congestion- Primary Other diseases of nasal cavity and sinuses Acute cough Acute left-sided low back pain with left-sided sciatica- Primary Type 2 diabetes mellitus with hyperlipidemia (HCC) (HCC) Intracranial meningioma (HCC)- Primary Neoplasm of uncertain behavior of meninges Hospital discharge follow-up Other follow-up examination Seizures (HCC) Other convulsions 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 Diagnosis Nasal congestion- Primary Other diseases of nasal cavity and sinuses Acute cough Acute left-sided low back pain with left-sided sciatica- Primary Type 2 diabetes mellitus with hyperlipidemia (HCC) (HCC) Medicare annual wellness visit, subsequent- Primary History of meningioma Type 2 diabetes mellitus with hyperlipidemia (HCC) Encounter for diabetic foot exam ([facility]) Neuropathy Mononeuritis of unspecified site Overweight (BMI 25.0-29.9) Overweight Essential hypertension Unspecified essential hypertension Hyperlipidemia, unspecified hyperlipidemia type Seizures (HCC) Other convulsions Tremor Abnormal involuntary movements 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, nonruptured Aphasia Benign meningioma (HCC)- Primary Benign neoplasm of cerebral meninges Mixed hyperlipidemia Primary hypertension Unspecified essential hypertension Pre-op examination Preoperative examination, unspecified Intracranial meningioma (HCC) Benign neoplasm of cerebral meninges Type 2 diabetes mellitus without complication, without long-term current use of insulin (HCC) KIMBERLY (obstructive sleep apnea) Obstructive sleep apnea (adult) (pediatric) Provoked seizures (HCC)- Primary Other convulsions [facility] Diagnosis Nasal congestion- Primary Other diseases of nasal cavity and sinuses Acute cough Acute left-sided low back pain with left-sided sciatica- Primary Type 2 diabetes mellitus with hyperlipidemia (HCC) (HCC) Hyperlipidemia, unspecified hyperlipidemia type 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, nonruptured Aphasia Benign meningioma (HCC)- Primary Benign neoplasm of cerebral meninges Mixed hyperlipidemia Primary hypertension Unspecified essential hypertension Pre-op examination Preoperative examination, unspecified Intracranial meningioma (HCC) Benign neoplasm of cerebral meninges Type 2 diabetes mellitus without complication, without long-term current use of insulin (HCC) KIMBERLY (obstructive sleep apnea) Obstructive sleep apnea (adult) (pediatric) Intracranial meningioma (HCC) Benign neoplasm of cerebral meninges [facility] Diagnosis Meningioma (HCC)- Primary Benign neoplasm of cerebral meninges Benign meningioma (HCC) Benign neoplasm of cerebral meninges HTN (hypertension) Unspecified essential hypertension Hyperlipidemia Other and unspecified hyperlipidemia KIMBERLY (obstructive sleep apnea) Obstructive sleep apnea (adult) (pediatric) Type 2 diabetes mellitus without complication, without long-term current use of insulin (HCC) 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, nonruptured Aphasia Benign meningioma (HCC)- Primary Benign neoplasm of cerebral meninges Mixed hyperlipidemia Primary hypertension Unspecified essential hypertension Pre-op examination Preoperative examination, unspecified Intracranial meningioma (HCC) Benign neoplasm of cerebral meninges Type 2 diabetes mellitus without complication, without long-term current use of insulin (HCC) KIMBERLY (obstructive sleep apnea) Obstructive sleep apnea (adult) (pediatric) Intracranial meningioma (HCC)- Primary Benign neoplasm of cerebral meninges Benign neoplasm of meninges (HCC) Benign neoplasm of cerebral meninges [facility] Diagnosis Meningioma (HCC)- Primary Benign neoplasm of cerebral meninges Benign meningioma (HCC) Benign neoplasm of cerebral meninges HTN (hypertension) Unspecified essential hypertension Hyperlipidemia Other and unspecified hyperlipidemia KIMBERLY (obstructive sleep apnea) Obstructive sleep apnea (adult) (pediatric) Type 2 diabetes mellitus without complication, without long-term current use of insulin (HCC) 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, nonruptured Aphasia Benign meningioma (HCC)- Primary Benign neoplasm of cerebral meninges Mixed hyperlipidemia Primary hypertension Unspecified essential hypertension Pre-op examination Preoperative examination, unspecified Intracranial meningioma (HCC) Benign neoplasm of cerebral meninges Type 2 diabetes mellitus without complication, without long-term current use of insulin (HCC) KIMBERLY (obstructive sleep apnea) Obstructive sleep apnea (adult) (pediatric) Nonruptured cerebral aneurysm- Primary Cerebral aneurysm, nonruptured [facility] Diagnosis Meningioma (HCC)- Primary Benign neoplasm of cerebral meninges Benign meningioma (HCC) Benign neoplasm of cerebral meninges HTN (hypertension) Unspecified essential hypertension Hyperlipidemia Other and unspecified hyperlipidemia KIMBERLY (obstructive sleep apnea) Obstructive sleep apnea (adult) (pediatric) Type 2 diabetes mellitus without complication, without long-term current use of insulin (HCC) 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, nonruptured Aphasia Benign meningioma (HCC)- Primary Benign neoplasm of cerebral meninges Mixed hyperlipidemia Primary hypertension Unspecified essential hypertension Pre-op examination Preoperative examination, unspecified Intracranial meningioma (HCC) Benign neoplasm of cerebral meninges Type 2 diabetes mellitus without complication, without long-term current use of insulin (HCC) KIMBERLY (obstructive sleep apnea) Obstructive sleep apnea (adult) (pediatric) Provoked seizures (HCC)- Primary Other convulsions [facility] Diagnosis Meningioma (HCC)- Primary Benign neoplasm of cerebral meninges Benign meningioma (HCC) Benign neoplasm of cerebral meninges HTN (hypertension) Unspecified essential hypertension Hyperlipidemia Other and unspecified hyperlipidemia KIMBERLY (obstructive sleep apnea) Obstructive sleep apnea (adult) (pediatric) Type 2 diabetes mellitus without complication, without long-term current use of insulin (HCC) 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, nonruptured Aphasia Benign meningioma (HCC)- Primary Benign neoplasm of cerebral meninges Mixed hyperlipidemia Primary hypertension Unspecified essential hypertension Pre-op examination Preoperative examination, unspecified Intracranial meningioma (HCC) Benign neoplasm of cerebral meninges Type 2 diabetes mellitus without complication, without long-term current use of insulin (HCC) KIMBERLY (obstructive sleep apnea) Obstructive sleep apnea (adult) (pediatric) Provoked seizures (HCC)- Primary Other convulsions [facility] Diagnosis Meningioma (HCC)- Primary Benign neoplasm of cerebral meninges Benign meningioma (HCC) Benign neoplasm of cerebral meninges HTN (hypertension) Unspecified essential hypertension Hyperlipidemia Other and unspecified hyperlipidemia KIMBERLY (obstructive sleep apnea) Obstructive sleep apnea (adult) (pediatric) Type 2 diabetes mellitus without complication, without long-term current use of insulin (HCC) 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, nonruptured Aphasia Benign meningioma (HCC)- Primary Benign neoplasm of cerebral meninges Mixed hyperlipidemia Primary hypertension Unspecified essential hypertension Pre-op examination Preoperative examination, unspecified Intracranial meningioma (HCC) Benign neoplasm of cerebral meninges Type 2 diabetes mellitus without complication, without long-term current use of insulin (HCC) KIMBERLY (obstructive sleep apnea) Obstructive sleep apnea (adult) (pediatric) Intracranial meningioma (HCC) Benign neoplasm of cerebral meninges Benign neoplasm of meninges (HCC) Benign neoplasm of cerebral meninges [facility] Diagnosis Meningioma (HCC)- Primary Benign neoplasm of cerebral meninges Benign meningioma (HCC) Benign neoplasm of cerebral meninges HTN (hypertension) Unspecified essential hypertension Hyperlipidemia Other and unspecified hyperlipidemia KIMBERLY (obstructive sleep apnea) Obstructive sleep apnea (adult) (pediatric) Type 2 diabetes mellitus without complication, without long-term current use of insulin (HCC) 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, nonruptured Aphasia Benign meningioma (HCC)- Primary Benign neoplasm of cerebral meninges Mixed hyperlipidemia Primary hypertension Unspecified essential hypertension Pre-op examination Preoperative examination, unspecified Intracranial meningioma (HCC) Benign neoplasm of cerebral meninges Type 2 diabetes mellitus without complication, without long-term current use of insulin (HCC) KIMBERLY (obstructive sleep apnea) Obstructive sleep apnea (adult) (pediatric) Intracranial meningioma (HCC)- Primary Benign neoplasm of cerebral meninges documented in this encounter [facility]* Diagnosis Nasal congestion- Primary Other diseases of nasal cavity and sinuses Acute cough Acute left-sided low back pain with left-sided sciatica- Primary Type 2 diabetes mellitus with hyperlipidemia (HCC) (HCC) Tremor Abnormal involuntary movements documented in this encounter [facility] note* Diagnosis Meningioma (HCC)- Primary Benign neoplasm of cerebral meninges Benign meningioma (HCC) Benign neoplasm of cerebral meninges HTN (hypertension) Unspecified essential hypertension Hyperlipidemia Other and unspecified hyperlipidemia KIMBERLY (obstructive sleep apnea) Obstructive sleep apnea (adult) (pediatric) Type 2 diabetes mellitus without complication, without long-term current use of insulin (HCC) 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, nonruptured Aphasia Benign meningioma (HCC)- Primary Benign neoplasm of cerebral meninges Mixed hyperlipidemia Primary hypertension Unspecified essential hypertension Pre-op examination Preoperative examination, unspecified Intracranial meningioma (HCC) Benign neoplasm of cerebral meninges Type 2 diabetes mellitus without complication, without long-term current use of insulin (HCC) KIMBERLY (obstructive sleep apnea) Obstructive sleep apnea (adult) (pediatric) Benign meningioma (HCC)- Primary Benign neoplasm of cerebral meninges documented in this encounter [facility]* Diagnosis Meningioma (HCC)- Primary Benign neoplasm of cerebral meninges Benign meningioma (HCC) Benign neoplasm of cerebral meninges HTN (hypertension) Unspecified essential hypertension Hyperlipidemia Other and unspecified hyperlipidemia KIMBERLY (obstructive sleep apnea) Obstructive sleep apnea (adult) (pediatric) Type 2 diabetes mellitus without complication, without long-term current use of insulin (HCC) 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, nonruptured Aphasia Benign meningioma (HCC)- Primary Benign neoplasm of cerebral meninges Mixed hyperlipidemia Primary hypertension Unspecified essential hypertension Pre-op examination Preoperative examination, unspecified Intracranial meningioma (HCC) Benign neoplasm of cerebral meninges Type 2 diabetes mellitus without complication, without long-term current use of insulin (HCC) KIMBERLY (obstructive sleep apnea) Obstructive sleep apnea (adult) (pediatric) Benign meningioma (HCC) Benign neoplasm of cerebral meninges [facility] Diagnosis Meningioma (HCC)- Primary Benign neoplasm of cerebral meninges Benign meningioma (HCC) Benign neoplasm of cerebral meninges HTN (hypertension) Unspecified essential hypertension Hyperlipidemia Other and unspecified hyperlipidemia KIMBERLY (obstructive sleep apnea) Obstructive sleep apnea (adult) (pediatric) Type 2 diabetes mellitus without complication, without long-term current use of insulin (HCC) 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, nonruptured Aphasia Benign meningioma (HCC)- Primary Benign neoplasm of cerebral meninges Mixed hyperlipidemia Primary hypertension Unspecified essential hypertension Pre-op examination Preoperative examination, unspecified Intracranial meningioma (HCC) Benign neoplasm of cerebral meninges Type 2 diabetes mellitus without complication, without long-term current use of insulin (HCC) KIMBERLY (obstructive sleep apnea) Obstructive sleep apnea (adult) (pediatric) Benign meningioma (HCC) Benign neoplasm of cerebral meninges [facility] Diagnosis Meningioma (HCC)- Primary Benign neoplasm of cerebral meninges Benign meningioma (HCC) Benign neoplasm of cerebral meninges HTN (hypertension) Unspecified essential hypertension Hyperlipidemia Other and unspecified hyperlipidemia KIMBERLY (obstructive sleep apnea) Obstructive sleep apnea (adult) (pediatric) Type 2 diabetes mellitus without complication, without long-term current use of insulin (HCC) 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, nonruptured Aphasia Benign meningioma (HCC)- Primary Benign neoplasm of cerebral meninges Mixed hyperlipidemia Primary hypertension Unspecified essential hypertension Pre-op examination Preoperative examination, unspecified Intracranial meningioma (HCC) Benign neoplasm of cerebral meninges Type 2 diabetes mellitus without complication, without long-term current use of insulin (HCC) KIMBERLY (obstructive sleep apnea) Obstructive sleep apnea (adult) (pediatric) Intracranial meningioma (HCC)- Primary Benign neoplasm of cerebral meninges [facility] Diagnosis Meningioma (HCC)- Primary Benign neoplasm of cerebral meninges Benign meningioma (HCC) Benign neoplasm of cerebral meninges HTN (hypertension) Unspecified essential hypertension Hyperlipidemia Other and unspecified hyperlipidemia KIMBERLY (obstructive sleep apnea) Obstructive sleep apnea (adult) (pediatric) Type 2 diabetes mellitus without complication, without long-term current use of insulin (HCC) 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, nonruptured Aphasia Benign meningioma (HCC)- Primary Benign neoplasm of cerebral meninges Mixed hyperlipidemia Primary hypertension Unspecified essential hypertension Pre-op examination Preoperative examination, unspecified Intracranial meningioma (HCC) Benign neoplasm of cerebral meninges Type 2 diabetes mellitus without complication, without long-term current use of insulin (HCC) KIMBERLY (obstructive sleep apnea) Obstructive sleep apnea (adult) (pediatric) Intracranial meningioma (HCC) Benign neoplasm of cerebral meninges [facility] Diagnosis Meningioma (HCC)- Primary Benign neoplasm of cerebral meninges Benign meningioma (HCC) Benign neoplasm of cerebral meninges HTN (hypertension) Unspecified essential hypertension Hyperlipidemia Other and unspecified hyperlipidemia KIMBERLY (obstructive sleep apnea) Obstructive sleep apnea (adult) (pediatric) Type 2 diabetes mellitus without complication, without long-term current use of insulin (HCC) 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, nonruptured Aphasia Benign meningioma (HCC)- Primary Benign neoplasm of cerebral meninges Mixed hyperlipidemia Primary hypertension Unspecified essential hypertension Pre-op examination Preoperative examination, unspecified Intracranial meningioma (HCC) Benign neoplasm of cerebral meninges Type 2 diabetes mellitus without complication, without long-term current use of insulin (HCC) KIMBERLY (obstructive sleep apnea) Obstructive sleep apnea (adult) (pediatric) Intracranial meningioma (HCC)- Primary Benign neoplasm of cerebral meninges [facility] Diagnosis Meningioma (HCC)- Primary Benign neoplasm of cerebral meninges Benign meningioma (HCC) Benign neoplasm of cerebral meninges HTN (hypertension) Unspecified essential hypertension Hyperlipidemia Other and unspecified hyperlipidemia KIMBERLY (obstructive sleep apnea) Obstructive sleep apnea (adult) (pediatric) Type 2 diabetes mellitus without complication, without long-term current use of insulin (HCC) 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, nonruptured Aphasia Benign meningioma (HCC)- Primary Benign neoplasm of cerebral meninges Mixed hyperlipidemia Primary hypertension Unspecified essential hypertension Pre-op examination Preoperative examination, unspecified Intracranial meningioma (HCC) Benign neoplasm of cerebral meninges Type 2 diabetes mellitus without complication, without long-term current use of insulin (HCC) KIMBERLY (obstructive sleep apnea) Obstructive sleep apnea (adult) (pediatric) Provoked seizures (HCC)- Primary Other convulsions Essential tremor Essential and other specified forms of tremor [facility] Diagnosis Meningioma (HCC)- Primary Benign neoplasm of cerebral meninges Benign meningioma (HCC) Benign neoplasm of cerebral meninges HTN (hypertension) Unspecified essential hypertension Hyperlipidemia Other and unspecified hyperlipidemia KIMBERLY (obstructive sleep apnea) Obstructive sleep apnea (adult) (pediatric) Type 2 diabetes mellitus without complication, without long-term current use of insulin (HCC) 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, nonruptured Aphasia Benign meningioma (HCC)- Primary Benign neoplasm of cerebral meninges Mixed hyperlipidemia Primary hypertension Unspecified essential hypertension Pre-op examination Preoperative examination, unspecified Intracranial meningioma (HCC) Benign neoplasm of cerebral meninges Type 2 diabetes mellitus without complication, without long-term current use of insulin (HCC) KIMBERLY (obstructive sleep apnea) Obstructive sleep apnea (adult) (pediatric) Benign meningioma (HCC) Benign neoplasm of cerebral meninges [facility] Diagnosis Meningioma (HCC)- Primary Benign neoplasm of cerebral meninges Benign meningioma (HCC) Benign neoplasm of cerebral meninges HTN (hypertension) Unspecified essential hypertension Hyperlipidemia Other and unspecified hyperlipidemia KIMBERLY (obstructive sleep apnea) Obstructive sleep apnea (adult) (pediatric) Type 2 diabetes mellitus without complication, without long-term current use of insulin (HCC) 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, nonruptured Aphasia Benign meningioma (HCC)- Primary Benign neoplasm of cerebral meninges Mixed hyperlipidemia Primary hypertension Unspecified essential hypertension Pre-op examination Preoperative examination, unspecified Intracranial meningioma (HCC) Benign neoplasm of cerebral meninges Type 2 diabetes mellitus without complication, without long-term current use of insulin (HCC) KIMBERLY (obstructive sleep apnea) Obstructive sleep apnea (adult) (pediatric) Intracranial meningioma (HCC)- Primary Benign neoplasm of cerebral meninges Essential tremor Essential and other specified forms of tremor [facility] Diagnosis Meningioma (HCC)- Primary Benign neoplasm of cerebral meninges Benign meningioma (HCC) Benign neoplasm of cerebral meninges HTN (hypertension) Unspecified essential hypertension Hyperlipidemia Other and unspecified hyperlipidemia KIMBERLY (obstructive sleep apnea) Obstructive sleep apnea (adult) (pediatric) Type 2 diabetes mellitus without complication, without long-term current use of insulin (HCC) 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, nonruptured Aphasia Benign meningioma (HCC)- Primary Benign neoplasm of cerebral meninges Mixed hyperlipidemia Primary hypertension Unspecified essential hypertension Pre-op examination Preoperative examination, unspecified Intracranial meningioma (HCC) Benign neoplasm of cerebral meninges Type 2 diabetes mellitus without complication, without long-term current use of insulin (HCC) KIMBERLY (obstructive sleep apnea) Obstructive sleep apnea (adult) (pediatric) Intracranial meningioma (HCC)- Primary Benign neoplasm of cerebral meninges documented in this encounter [facility] note* Diagnosis Meningioma (HCC)- Primary Benign neoplasm of cerebral meninges Benign meningioma (HCC) Benign neoplasm of cerebral meninges HTN (hypertension) Unspecified essential hypertension Hyperlipidemia Other and unspecified hyperlipidemia KIMBERLY (obstructive sleep apnea) Obstructive sleep apnea (adult) (pediatric) Type 2 diabetes mellitus without complication, without long-term current use of insulin (HCC) 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, nonruptured Aphasia Benign meningioma (HCC)- Primary Benign neoplasm of cerebral meninges Mixed hyperlipidemia Primary hypertension Unspecified essential hypertension Pre-op examination Preoperative examination, unspecified Intracranial meningioma (HCC) Benign neoplasm of cerebral meninges Type 2 diabetes mellitus without complication, without long-term current use of insulin (HCC) KIMBERLY (obstructive sleep apnea) Obstructive sleep apnea (adult) (pediatric) Intracranial meningioma (HCC)- Primary Benign neoplasm of cerebral meninges documented in this encounter [facility] note* Diagnosis Meningioma (HCC)- Primary Benign neoplasm of cerebral meninges Benign meningioma (HCC) Benign neoplasm of cerebral meninges HTN (hypertension) Unspecified essential hypertension Hyperlipidemia Other and unspecified hyperlipidemia KIMBERLY (obstructive sleep apnea) Obstructive sleep apnea (adult) (pediatric) Type 2 diabetes mellitus without complication, without long-term current use of insulin (HCC) 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, nonruptured Aphasia Benign meningioma (HCC)- Primary Benign neoplasm of cerebral meninges Mixed hyperlipidemia Primary hypertension Unspecified essential hypertension Pre-op examination Preoperative examination, unspecified Intracranial meningioma (HCC) Benign neoplasm of cerebral meninges Type 2 diabetes mellitus without complication, without long-term current use of insulin (HCC) KIMBERLY (obstructive sleep apnea) Obstructive sleep apnea (adult) (pediatric) Intracranial meningioma (HCC)- Primary Benign neoplasm of cerebral meninges [facility] Diagnosis Meningioma (HCC)- Primary Benign neoplasm of cerebral meninges Benign meningioma (HCC) Benign neoplasm of cerebral meninges HTN (hypertension) Unspecified essential hypertension Hyperlipidemia Other and unspecified hyperlipidemia KIMBERLY (obstructive sleep apnea) Obstructive sleep apnea (adult) (pediatric) Type 2 diabetes mellitus without complication, without long-term current use of insulin (HCC) 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, nonruptured Aphasia Benign meningioma (HCC)- Primary Benign neoplasm of cerebral meninges Mixed hyperlipidemia Primary hypertension Unspecified essential hypertension Pre-op examination Preoperative examination, unspecified Intracranial meningioma (HCC) Benign neoplasm of cerebral meninges Type 2 diabetes mellitus without complication, without long-term current use of insulin (HCC) KIMBERLY (obstructive sleep apnea) Obstructive sleep apnea (adult) (pediatric) Intracranial meningioma (HCC)- Primary Benign neoplasm of cerebral meninges documented [facility] noteNo assessment information availableWSt. Charles Hospital Work Phone: Evaluation note* Diagnosis Meningioma (HCC)- Primary Benign neoplasm of cerebral meninges Benign meningioma (HCC) Benign neoplasm of cerebral meninges HTN (hypertension) Unspecified essential hypertension Hyperlipidemia Other and unspecified hyperlipidemia KIMBERLY (obstructive sleep apnea) Obstructive sleep apnea (adult) (pediatric) Type 2 diabetes mellitus without complication, without long-term current use of insulin (HCC) 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, nonruptured Aphasia Benign meningioma (HCC)- Primary Benign neoplasm of cerebral meninges Mixed hyperlipidemia Primary hypertension Unspecified essential hypertension Pre-op examination Preoperative examination, unspecified Intracranial meningioma (HCC) Benign neoplasm of cerebral meninges Type 2 diabetes mellitus without complication, without long-term current use of insulin (HCC) KIMBERLY (obstructive sleep apnea) Obstructive sleep apnea (adult) (pediatric) Intracranial meningioma (HCC)- Primary Benign neoplasm of cerebral meninges [facility]* Diagnosis Meningioma (HCC)- Primary Benign neoplasm of cerebral meninges Benign meningioma (HCC) Benign neoplasm of cerebral meninges HTN (hypertension) Unspecified essential hypertension Hyperlipidemia Other and unspecified hyperlipidemia KIMBERLY (obstructive sleep apnea) Obstructive sleep apnea (adult) (pediatric) Type 2 diabetes mellitus without complication, without long-term current use of insulin (HCC) 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, nonruptured Aphasia Benign meningioma (HCC)- Primary Benign neoplasm of cerebral meninges Mixed hyperlipidemia Primary hypertension Unspecified essential hypertension Pre-op examination Preoperative examination, unspecified Intracranial meningioma (HCC) Benign neoplasm of cerebral meninges Type 2 diabetes mellitus without complication, without long-term current use of insulin (HCC) KIMBERLY (obstructive sleep apnea) Obstructive sleep apnea (adult) (pediatric) Intracranial meningioma (HCC)- Primary Benign neoplasm of cerebral meninges [facility] Diagnosis Nasal congestion- Primary Other diseases of nasal cavity and sinuses Acute cough Acute left-sided low back pain with left-sided sciatica- Primary Type 2 diabetes mellitus with hyperlipidemia (HCC) (HCC) Weakness of both legs- Primary Muscle weakness (generalized) Type 2 diabetes mellitus with hyperlipidemia (HCC) Neuropathy Mononeuritis of unspecified site documented in this encounter [facility] note* Diagnosis Meningioma (HCC)- Primary Benign neoplasm of cerebral meninges Benign meningioma (HCC) Benign neoplasm of cerebral meninges HTN (hypertension) Unspecified essential hypertension Hyperlipidemia Other and unspecified hyperlipidemia KIMBERLY (obstructive sleep apnea) Obstructive sleep apnea (adult) (pediatric) Type 2 diabetes mellitus without complication, without long-term current use of insulin (HCC) 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, nonruptured Aphasia Benign meningioma (HCC)- Primary Benign neoplasm of cerebral meninges Mixed hyperlipidemia Primary hypertension Unspecified essential hypertension Pre-op examination Preoperative examination, unspecified Intracranial meningioma (HCC) Benign neoplasm of cerebral meninges Type 2 diabetes mellitus without complication, without long-term current use of insulin (HCC) KIMBERLY (obstructive sleep apnea) Obstructive sleep apnea (adult) (pediatric) Urinary tract infection without hematuria, site unspecified- Primary Intracranial meningioma (HCC) Benign neoplasm of cerebral meninges [facility] Attachments The following attachments cannot be sent through Care Everywhere. * Preventing Falls in Older Adults (Ukrainian) * Flu Vaccine (Ukrainian) [facility] Attachments The following attachments cannot be sent through Care Everywhere. * Flu Vaccine (Ukrainian) [facility] (narrative)No reason for referral information availableWSt. Charles Hospital Work Phone: Reason for visit Narrative* MRI/CT (Routine) - Closed Specialty Diagnoses / Procedures Referred By Contac t Referred To Contact MR IMAGING Diagnoses Benign neoplasm of meninges (HCC) Procedures MRI PITUITARY WO/W IVCON MRI BRAIN BRAIN STEM W/O W/CONTRAST MATERIAL Neymar Jeronimo MD [address] [place] [address] Phone: tel: fax: [place] [address] Referral ID Status Reason Start Date Expiration Date V isits Requested Visits Authorized [id number] Closed Auto-Generate d Referral 08/01/2024 08/31/2025 1 1 [facility] for visit Narrative* Auth/Cert (Routine) Specialty Diagnoses / Procedures Referred By Contac t Referred To Contact ADMITTING Diagnoses Benign meningioma (HCC) Benign meningioma (HCC) [D32.9] Procedures STEREOTACTIC RADIOSURGERY 1 COMPLEX CRANIAL LES RADIATION DELIVERY STEREOTACTIC CRANIAL [place] STEREOTACTIC RADIOSURGERY 1 COMPLEX CRANIAL LESION RADIATION [place] STEREOTACTIC RADIOSURGERY (SRS) [place] CRANIAL LESION(S) 1 SESSION MULTI-SOURCE [place] Anesthesia [address] [place] [address] Referral ID Status Reason Start Date Expiration Date Visits Re quested Visits Authorized [id number] 1 1 [facility] for visit Narrative* Auth/Cert (Routine) Specialty Diagnoses / Procedures Referred By Contac t Referred To Contact ADMITTING Diagnoses Benign meningioma (HCC) Benign meningioma (HCC) [D32.9] Procedures STEREOTACTIC RADIOSURGERY 1 COMPLEX CRANIAL LES RADIATION DELIVERY STEREOTACTIC CRANIAL [place] STEREOTACTIC RADIOSURGERY 1 COMPLEX CRANIAL LESION RADIATION [place] STEREOTACTIC RADIOSURGERY (SRS) [place] CRANIAL LESION(S) 1 SESSION MULTI-SOURCE [place] Anesthesia [address] [place] [id number] Referral ID Status Reason Start Date Expiration Date Visits Re quested Visits Authorized [id number] 1 1 [facility] for visit Narrative* MRI/CT (Routine) - Closed Specialty Diagnoses / Procedures Referred By Contac t Referred To Contact MR IMAGING Diagnoses Benign meningioma (HCC) Procedures MRI BRAIN WO/W IVCON MRI BRAIN BRAIN STEM W/O W/CONTRAST MATERIAL Neymar Jeronimo MD [address] [place] [address] Phone: tel: fax: [place] [address] Referral ID Status Reason Start Date Expiration Date V isits Requested Visits Authorized [id number] Closed Auto-Generate d Referral 11/28/2024 12/28/2025 1 1 [facility] Advance Directives No Advanced Directives Records FoundDocuments on File Type Date Recorded Patient Methods Analyst Expl anation ACP-Advance Directive ACP-Power of Hse Coordinator Documents on File Type Date Recorded Patient Methods Analyst Expl anation Advance Directives and Living Will Power of Hse Coordinator Documents on File Type Date Recorded Patient Methods Analyst Expl anation Advance Directive(s) 06/18/2013 3:05 PM Advance Directive(s) 05/13/2013 11:02 AM Advance Directive(s) 10/13/2010 9:48 PM Advance Directive(s) 09/20/2010 5:39 PM Documents on File Type Date Recorded Patient Methods Analyst Expl anation Advance Directive(s) 06/18/2013 3:05 PM Advance Directive(s) 05/13/2013 11:02 AM Advance Directive(s) 10/13/2010 9:48 PM Advance Directive(s) 09/20/2010 5:39 PM Date Activated Date Inactivated Comments 04/26/2024 4:22 PM Question Answer Comments Full Code Order Discussed With: Patient Date Activated Date Inactivated Comments 04/26/2024 4:22 PM 05/03/2024 3:43 PM Question Answer Comments Full Code Order Discussed With: Patient Date Activated Date Inactivated Comments 04/26/2024 4:22 PM 05/03/2024 3:43 PM Assessments Diagnosis Lumbar radiculopathy Thoracic or lumbosacral neuritis or radiculitis, unspecified Diagnosis Chronic right hip pain Pain in joint, pelvic region and thigh Summary Purpose Family History No Family History Records Found Relationship Condition Age at Onset Recorded Date/T tushar sister Malignant neoplasm Unknown brother Malignant neoplasm Unknown Reason for Referral Specialty Diagnoses / Procedures Referred By Socorro laureano Referred To Contact Diagnoses Greater trochanteric bursitis of right hip Rachid Neville MD [address] [place] [address] [place] [address] Referral ID Status Reason Start Date Expiration Date V isits Requested Visits Authorized [id number] Pending Review 06/27/2023 06/21/2024 1 1 Specialty Diagnoses / Procedures Referred By Socorro laureano Referred To Contact Orthopedic Surgery / Orthopaedic Surgery Diagnoses Greater trochanteric bursitis of right hip Procedures Large Joint Injection/Arthrocentesis Rachid Neville MD [address] [place] [address] [facility] [place] [place] [address] Referral ID Status Reason Start Date Expiration Date V isits Requested Visits Authorized [id number] Pending Review 06/27/2023 06/21/2024 1 1 Specialty Diagnoses / Procedures Referred By Contac t Referred To Contact Physical Therapy Diagnoses Benign paroxysmal positional vertigo of left ear Procedures ME OFFICE/OUTPATIENT NEW HIGH MDM 60-74 MINUTES [facility] [place] [place] [address] [facility] [address] [place] [address] Referral ID Status Reason Start Date Expiration Date Visits Requested Visits Authorized [id number] Pending Review Eval and Treat 06/21/2024 99 99 Specialty Diagnoses / Procedures Referred By Contac t Referred To Contact Radiology Diagnoses Unspecified exophthalmos Procedures MR ORBIT FACE NECK W AND WO IV CONTRAST [place], [place]. [address] [place] [address] Referral ID Status Reason Start Date Expiration Date Visits Re quested Visits Authorized [id number] Closed 01/25/2024 01/24/2025 1 1 Specialty Diagnoses / Procedures Referred By Contac t Referred To Contact Radiology Diagnoses Unspecified exophthalmos Procedures MR brain w and wo contrast [place], [place]. [address] [place] [address] Referral ID Status Reason Start Date Expiration Date Visits Re quested Visits Authorized [id number] Closed 01/25/2024 01/24/2025 1 1 Specialty Diagnoses / Procedures Referred By Contac t Referred To Contact CT IMAGING Diagnoses SDH (subdural hematoma) (HCC) Meningioma, cerebral (HCC) Procedures CT BRAIN WO IVCON CT HEAD/BRAIN W/O CONTRAST MATERIAL Eladia Jensen PA-C [address] [place] [address] [place] [address] Referral ID Status Reason Start Date Expiration Date Visits Requested Visits Authorized [id number] New Request Auto-Generat ed Referral 02/14/2024 03/15/2025 1 1 Specialty Diagnoses / Procedures Referred By Contac t Referred To Contact MR IMAGING Diagnoses Benign neoplasm of meninges (HCC) Procedures MRI PITUITARY WO/W IVCON MRI BRAIN BRAIN STEM W/O W/CONTRAST MATERIAL Neymar Jeronimo MD [address] [facility] [place] [address] Mr Imaging [place] [address] Referral ID Status Reason Start Date Expiration Date Visits Requested Visits Authorized [id number] New Request Auto-Generat ed Referral 02/19/2024 03/20/2025 1 1 Referral ID Status Reason Start Date Expiration Date V isits Requested Visits Authorized [id number] Closed Auto-Generate d Referral 02/19/2024 03/20/2025 1 1 Specialty Diagnoses / Procedures Referred By Contac t Referred To Contact MR IMAGING Diagnoses Intracranial meningioma (HCC) Procedures MRI BRAIN WO/W IVCON MRI BRAIN BRAIN STEM W/O W/CONTRAST MATERIAL Neymar Jeronimo MD [address] [facility] [place] [address] Mr Imaging [place] [address] Referral ID Status Reason Start Date Expiration Date Visits Requested Visits Authorized [id number] Authorized Auto-Generat ed Referral 06/19/2025 1 1 Referral ID Status Reason Start Date Expiration Date Visits Requested Visits Authorized [id number] Authorized Auto-Generat ed Referral 08/01/2024 08/31/2025 1 1 Referral ID Status Reason Start Date Expiration Date Visits Requested Visits Authorized [id number] Authorized Auto-Generat ed Referral 08/01/2024 08/31/2025 1 1 Chief Complaint and Reason for Visit Chief Complaint Admit Date medication refills/Labs February 10, 2025 2:57pm Additional Source Comments INFORMATION SOURCE (unrecogn ized section and content) DATE CREATED AUTHOR 05/06/2020 [facility] [employer] [facility] DATE CREATED AUTHOR AUTHOR'S ORGANIZ ATION 05/29/2024 [facility] DATE CREATED AUTHOR AUTHOR'S ORGANIZ ATION 03/30/2025 [facility] DATE CREATED AUTHOR AUTHOR'S ORGANIZ ATION 04/03/2025 [facility] DATE CREATED AUTHOR AUTHOR'S ORGANIZ ATION 04/04/2025 [facility] DATE CREATED AUTHOR AUTHOR'S ORGANIZ ATION 04/04/2025 [facility] Reason for Visit (unrecogniz ed section and content) Reason Comments Established Patient Specialty Diagnoses / Procedures Referred By Socorro laureano Referred To Contact MR IMAGING Diagnoses Intracranial meningioma (HCC) Procedures MRI BRAIN WO/W IVCON MRI BRAIN BRAIN STEM W/O W/CONTRAST MATERIAL Neymar Jeronimo MD [address] [place] [address] Phone: tel: fax: [place] [address] Referral ID Status Reason Start Date Expiration Date V isits Requested Visits Authorized [id number] Closed Auto-Generate d Referral 08/01/2024 08/31/2025 1 1 Reason Comments Hypertension Hyperlipidemia Diabetes Medication Check Health Maintenance DEXA--declines, DM e ye-- goes every february, Dental--went in may/jun, COVID 3--has not had Reason Comments shave biopsy Left upper back Reason Onset Date Comments Med Refill 03/10/2023 Reason Comments Medicare Annual Wellness Visit Initial Health Maintenance AWV-complete todaySk in Check-completed by reynold duncan done 2 weeks [id number]-pssovelr Hypertension Reason Onset Date Comments dry eye and tumor concerned 05/05/2023 Reason Comments Hip Pain Right Dizziness When sit up after la ale down Specialty Diagnoses / Procedures Referred By Socorro laureano Referred To Contact Diagnoses Greater trochanteric bursitis of right hip Rachid Neville MD [address] [facility], [place] [address] Referral ID Status Reason Start Date Expiration Date V isits Requested Visits Authorized [id number] Pending Review 06/27/2023 06/21/2024 1 1 Reason Onset Date Comments Med Refill 07/04/2023 Specialty Diagnoses / Procedures Referred By Socorro laureano Referred To Contact Physical Therapy Diagnoses Benign paroxysmal positional vertigo of left ear Procedures ME OFFICE/OUTPATIENT NEW HIGH MDM 60-74 MINUTES Rachid Neville MD [address] [facility], [place] [address] [facility] [address] [place] [address] Referral ID Status Reason Start Date Expiration Date Visits Requested Visits Authorized [id number] Authorized Eval and Treat 06/27/2023 06/21/2024 99 99 Reason Comments Cough Reason Comments Back Pain Onset 1 month- left hip down leg almost gives out Reason Onset Date Comments Med Refill 01/25/2024 Specialty Diagnoses / Procedures Referred By Contac t Referred To Contact Radiology Diagnoses Unspecified exophthalmos Procedures MR ORBIT FACE NECK W AND WO IV CONTRAST Nancy [place]. [address] [place] [address] Referral ID Status Reason Start Date Expiration Date Visits Re quested Visits Authorized [id number] Closed 01/25/2024 01/24/2025 1 1 Specialty Diagnoses / Procedures Referred By Contac t Referred To Contact Radiology Diagnoses Unspecified exophthalmos Procedures MR brain w and wo contrast Mibogdanel, [place]. 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 Specialty Diagnoses / Procedures Referred By Contac t Referred To Contact CT IMAGING Diagnoses SDH (subdural hematoma) (HCC) Meningioma, cerebral (HCC) Procedures CT BRAIN WO IVCON CT HEAD/BRAIN W/O CONTRAST MATERIAL Eladia Jensen, PALawrenceC [address] [facility] [address] [place] [address] Referral ID Status Reason Start Date Expiration Date V isits Requested Visits Authorized [id number] Closed Auto-Generate d Referral 02/14/2024 03/15/2025 1 1 Reason Onset Date Comments Other 02/19/2024 [facility] Reason Comments New Patient Reason Comments Appointment Specialty Diagnoses / Procedures Referred By Socorro laureano Referred To Contact MR IMAGING Diagnoses Benign neoplasm of meninges (HCC) Procedures MRI PITUITARY WO/W IVCON MRI BRAIN BRAIN STEM W/O W/CONTRAST MATERIAL Neymar Jeronimo MD [address] [place] [address] [place] [address] Referral ID Status Reason Start Date Expiration Date V isits Requested Visits Authorized [id number] Closed Auto-Generate d Referral 02/19/2024 03/20/2025 1 1 Reason Onset Date Comments Appointment 04/08/2024 Reason Comments Pre-op Exam Is having eye surger y and was told that she needed to be seen to make sure she is in good health. Unknown of date. Reason Onset Date Comments Other 04/09/2024 Reason Comments Follow-up Surgical Clearance f or eye surgery (04/24) Reason Onset Date Comments Refill Request 04/22/2024 Reason Comments Returning Patient's Call Reason Comments Preparations For Surgery Specialty Diagnoses / Procedures Referred By Socorro laureano Referred To Contact Diagnoses Benign meningioma (HCC) Benign meningioma (HCC) [D32.9] Procedures CRNEC TREPHINE BONE FLAP MENINGIOMA SUPRATENTOR MICROSURG TQS REQ USE OPERATING MICROSCOPE STRTCTC CPTR ASSTD PX CRANIAL INTRADURAL CRANIOTOMY FOR EXCISION SUPRATENTORIAL MENINGIOMA MICROSURGICAL TECHNIQUE FOR CRANIOTOMY PROCEDURES BRAINLAB STEREOTACTIC COMPUTER-ASSISTED NAVIGATIONAL PROCEDURE CRANIAL [facility] Or [facility] [place] [address] Referral ID Status Reason Start Date Expiration Date Visits Re quested Visits Authorized [id number] 1 1 Reason Comments Post Op Reason Comments Follow-up Follow up from rehab . States that she had fell and had messed up her eye Reason Comments Medicare Annual Wellness Visit Yaw t Health Maintenance RSV- not done Derm- 3rd Covid- Blood Work Reason Comments New Patient Hospital Follow Up Reason Comments Blood Work Blood Pressure Check Reason Onset Date Comments Blood Pressure Check 07/23/2024 Specialty Diagnoses / Procedures Referred By Socorro laureano Referred To Contact MR IMAGING Diagnoses Intracranial meningioma (HCC) Procedures MRI BRAIN WO/W IVCON MRI BRAIN BRAIN STEM W/O W/CONTRAST MATERIAL Neymar Jeronimo MD [address] [facility] [place] [address] [place] [address] Referral ID Status Reason Start Date Expiration Date V isits Requested Visits Authorized [id number] Closed Auto-Generate d Referral 05/20/2024 06/19/2025 1 1 Reason Comments Established Patient Reason Comments Unruptured Aneurysm Specialty Diagnoses / Procedures [facility] Referred To Contact Neurology / NEUROSURGERY Diagnoses new 3 month follow up 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 Procedures NEW SURGICAL Zoë Kaplan, OUTDOOR ADVENTURE INSTRUCTOR [address] [place] [address] Phone: tel: fax: Tracy Barcenas MD [address] [place] [address] Phone: tel: fax: Referral ID Status Reason Start Date Expiration Date V isits Requested Visits Authorized [id number] Pending Review 08/01/2024 09/30/2024 1 1 Reason Onset Date Comments Refill Request 10/08/2024 Reason Onset Date Comments Med Refill 10/18/2024 Reason Comments Med Refill Reason Comments Procedure [facility] Specialty Diagnoses / Procedures Referred By Socorro Referred To Contact ADMITTING Diagnoses Benign meningioma (HCC) Benign meningioma (HCC) [D32.9] Procedures STEREOTACTIC RADIOSURGERY 1 COMPLEX CRANIAL LES RADIATION DELIVERY STEREOTACTIC CRANIAL COBALT STEREOTACTIC RADIOSURGERY 1 COMPLEX CRANIAL LESION RADIATION TX STEREOTACTIC RADIOSURGERY (SRS) [place] CRANIAL LESION(S) 1 SESSION MULTI-SOURCE COBALT Anesthesia [address] [address] Referral ID Status Reason Start Date Expiration Date Visits Re quested Visits Authorized [id number] 1 1 Reason Comments Patient Question Reason Comments Consult Specialty Diagnoses / Procedures [facility] Referred To Contact Radiation Oncology Diagnoses Intracranial meningioma (HCC) Procedures RAD/ONC CONSULT OFFICE/OUTPATIENT NEW HIGH MDM 60 MINUTES Neymar Jeronimo MD [address] [facility] [place] [address] Phone: tel: fax: Referral ID Status Reason Start Date Expiration Date V isits Requested Visits Authorized [id number] Closed PCP Requested Referral 12/18/2024 12/18/2025 1 1 Reason Comments Patient Education Reason Comments Follow Up Reason Comments Established Patient Reason Comments Radiotherapy On-treatment Visit Reason Onset Date Comments Simulation Request Form 01/01/2025 Reason Onset Date Comments Weakness, Gen 03/24/2025 Reason Comments Weakness, Gen Extremity Weakness Shaking Fall Reason Comments 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ther Care Teams (unrecognized sec tion and content) Treating Machine Operator Relationship Specialty Start Date End Date Rachid Neville MD [place], [place] [id number] PCP - General 03/29/21 Treating Machine Operator Relationship Specialty Start Date End Date Rachid Neville MD [place], [place] [id number] PCP - General 03/29/21 Treating Machine Operator Relationship Specialty Start Date End Date aRchid Neville MD [place], [place] [id number] PCP - General 03/29/21 Treating Machine Operator Relationship Specialty Start Date End Date Rachid Neville MD [place], [place] [id number] PCP - General 03/29/21 Treating Machine Operator Relationship Specialty Start Date End Date Rachid Neville MD [place], [place] [id number] PCP - General 03/29/21 Treating Machine Operator Relationship Specialty Start Date End Date Rachid Neville MD [place], [place] [id number] PCP - General 03/29/21 Treating Machine Operator Relationship Specialty Start Date End Date Rachid Neville MD [address] [place] [address] PCP - General 03/29/21 Treating Machine Operator Relationship Specialty Start Date End Date Zoë Kaplan, SHOVELER - OUTDOOR ADVENTURE INSTRUCTOR [address] [place] [address] PCP - General Nurse Practitioner Family 06/28/23 Treating Machine Operator Relationship Specialty Start Date End Date Zoë Kaplan SHOVELER - OUTDOOR ADVENTURE INSTRUCTOR [address] [place] [address] PCP - General Nurse Practitioner Family 06/28/23 Treating Machine Operator Relationship Specialty Start Date End Date Zoë Kaplan, SHOVELER - OUTDOOR ADVENTURE INSTRUCTOR [address] [place] [address] PCP - General Nurse Practitioner Family 06/28/23 Treating Machine Operator Relationship Specialty Start Date End Date Zoë Kaplan, SHOVELER - OUTDOOR ADVENTURE INSTRUCTOR [address] [place] [address] PCP - General Nurse Practitioner Family 06/28/23 Treating Machine Operator Relationship Specialty Start Date End Date Rachid Neville MD [address] [place] [address] PCP - General Family Medicine 09/11/23 Treating Machine Operator Relationship Specialty Start Date End Date Rachid Neville MD [address] [place] [address] PCP - General Family Medicine 09/11/23 Treating Machine Operator Relationship Specialty Start Date End Date Rachid Neville MD [address] [place] [address] PCP - General Family Medicine 09/11/23 Treating Machine Operator Relationship Specialty Start Date End Date Rachdi Neville MD [address] [place] [address] PCP - General Family Medicine 09/11/23 Treating Machine Operator Relationship Specialty Start Date End Date Rachid Neville MD [address] [place] [address] PCP - General Family Medicine 09/11/23 Treating Machine Operator Relationship Specialty Start Date End Date Zoë Kaplan CNP [address] [place] [address] PCP - General Family Medicine 02/13/24 Treating Machine Operator Relationship Specialty Start Date End Date Zoë Kaplan CNP [address] [place] [address] PCP - General Family Medicine 02/13/24 Treating Machine Operator Relationship Specialty Start Date End Date Zoë Kaplan CNP [address] [place] [address] PCP - General Family Medicine 02/13/24 Treating Machine Operator Relationship Specialty Start Date End Date Rachid Neville MD [address] [place] [address] PCP - General Family Medicine 09/11/23 Treating Machine Operator Relationship Specialty Start Date End Date Zoë Kaplan CNP [address] [place] [address] PCP - General Family Medicine 02/13/24 Treating Machine Operator Relationship Specialty Start Date End Date Zoë Kaplan CNP [address] [facility] [place] [place] [address] PCP - General Family Medicine 02/13/24 Treating Machine Operator Relationship Specialty Start Date End Date Rachid Neville MD [address] [place] [address] PCP - General Family Medicine 09/11/23 Treating Machine Operator Relationship Specialty Start Date End Date Rachid Neville MD [address] [place] [address] PCP - General Family Medicine 09/11/23 Treating Machine Operator Relationship Specialty Start Date End Date Zoë Kaplan CNP [address] [facility] [place] [address] PCP - General Family Medicine 02/13/24 Treating Machine Operator Relationship Specialty Start Date End Date Rachid Neville MD [address] [place] [address] PCP - General Family Medicine 09/11/23 Treating Machine Operator Relationship Specialty Start Date End Date Zoë Kaplan CNP [address] [facility] [place] [address] PCP - General Family Medicine 02/13/24 Treating Machine Operator Relationship Specialty Start Date End Date Zoë Kaplan CNP [address] [facility] [place] [address] PCP - General Family Medicine 02/13/24 Treating Machine Operator Relationship Specialty Start Date End Date Zoë Kaplan CNP [address] [place] [address] PCP - General Family Medicine 02/13/24 Treating Machine Operator Relationship Specialty Start Date End Date Zoë Kaplan CNP [address] [facility] [place] [address] PCP - General Family Medicine 02/13/24 Treating Machine Operator Relationship Specialty Start Date End Date Rachid Neville MD [address] [facility] [place] [address] PCP - General Family Medicine 09/11/23 Treating Machine Operator Relationship Specialty Start Date End Date Zëo Kaplan CNP [address] [facility] [place] [address] PCP - General Family Medicine 02/13/24 Treating Machine Operator Relationship Specialty Start Date End Date Zoë Kaplan CNP [address] [facility] [place] [address] PCP - General Family Medicine 02/13/24 Treating Machine Operator Relationship Specialty Start Date End Date Zoë Kaplan CNP [address] [facility] [place] [address] PCP - General Family Medicine 02/13/24 Treating Machine Operator Relationship Specialty Start Date End Date Zoë Kaplan CNP [address] [place] [address] PCP - General Family Medicine 02/13/24 Treating Machine Operator Relationship Specialty Start Date End Date Zoë Kaplan CNP [address] [facility] [place] [address] PCP - General Family Medicine 02/13/24 Treating Machine Operator Relationship Specialty Start Date End Date Zoë Kaplan CNP [address] [facility] [place] [address] PCP - General Family Medicine 02/13/24 Treating Machine Operator Relationship Specialty Start Date End Date Zoë Kaplan CNP [address] [facility] [place] [address] PCP - General Family Medicine 02/13/24 Treating Machine Operator Relationship Specialty Start Date End Date Zoë Kaplan CNP [address] [facility] [place] [address] PCP - General Family Medicine 02/13/24 Treating Machine Operator Relationship Specialty Start Date End Date Zoë Kaplan CNP [address] [facility] [address] [facility] [place] [address] PCP - General Family Medicine 02/13/24 Treating Machine Operator Relationship Specialty Start Date End Date Rachid Neville MD [address] [facility] [place] [address] PCP - General Family Medicine 09/11/23 Treating Machine Operator Relationship Specialty Start Date End Date Rachid Neville MD [address] [facility] [address] [facility] [place] [address] PCP - General Family Medicine 09/11/23 Treating Machine Operator Relationship Specialty Start Date End Date Zoë Kaplan CNP [address] [facility] [place] [address] PCP - General Family Medicine 02/13/24 Treating Machine Operator Relationship Specialty Start Date End Date Rachid Neville MD [address] [facility] [place] [address] PCP - General Family Medicine 09/11/23 Treating Machine Operator Relationship Specialty Start Date End Date Rachid Neville MD [address] [facility] [place] [address] PCP - General Family Medicine 09/11/23 Treating Machine Operator Relationship Specialty Start Date End Date Zoë Kaplan CNP [address] [facility] [place] [address] PCP - General Family Medicine 02/13/24 Treating Machine Operator Relationship Specialty Start Date End Date Zoë Kaplan CNP [address] [place] [address] PCP - General Family Medicine 02/13/24 Treating Machine Operator Relationship Specialty Start Date End Date Zoë Kaplan CNP [address] [facility] [place] [address] PCP - General Family Medicine 02/13/24 Treating Machine Operator Relationship Specialty Start Date End Date Zoë Kaplan CNP [address] [place] [address] PCP - General Family Medicine 02/13/24 Treating Machine Operator Relationship Specialty Start Date End Date Zoë Kaplan CNP [address] [place] [address] PCP - General Family Medicine 02/13/24 Treating Machine Operator Relationship Specialty Start Date End Date Rachid Neville MD [address] [facility] [place] [address] PCP - General Family Medicine 09/11/23 Treating Machine Operator Relationship Specialty Start Date End Date Zoë Kaplan CNP [address] [place] [address] PCP - General Family Medicine 02/13/24 Treating Machine Operator Relationship Specialty Start Date End Date Zoë Kaplan CNP [address] [place] [address] PCP - General Family Medicine 02/13/24 Treating Machine Operator Relationship Specialty Start Date End Date Zoë Kaplan CNP [address] [place] [address] PCP - General Family Medicine 02/13/24 Treating Machine Operator Relationship Specialty Start Date End Date Zoë Kaplan CNP [address] [place] [address] PCP - General Family Medicine 02/13/24 Treating Machine Operator Relationship Specialty Start Date End Date Zoë Kaplan CNP [address] [place] [address] PCP - General Family Medicine 02/13/24 Treating Machine Operator Relationship Specialty Start Date End Date Zoë Kaplan CNP [address] [place] [address] PCP - General Family Medicine 02/13/24 Treating Machine Operator Relationship Specialty Start Date End Date Zoë Kaplan CNP [address] [place] [address] PCP - General Family Medicine 02/13/24 Treating Machine Operator Relationship Specialty Start Date End Date Zoë Kaplan CNP [address] [facility] [place] [address] PCP - General Family Medicine 02/13/24 Treating Machine Operator Relationship Specialty Start Date End Date Zoë Kaplan CNP [address] [facility] [place] [address] PCP - General Family Medicine 02/13/24 Treating Machine Operator Relationship Specialty Start Date End Date Zoë Kaplan CNP [address] [facility] [place] [address] PCP - General Family Medicine 02/13/24 Linda Mckeon MD [address] [place] [address] Radiation Oncology 12/20/24 Treating Machine Operator Relationship Specialty Start Date End Date Zoë Kaplan CNP [address] [facility] [place] [address] PCP - General Family Medicine 02/13/24 Linda Mckeon MD [address] [place] [address] Radiation Oncology 12/20/24 Treating Machine Operator Relationship Specialty Start Date End Date Zoë Kaplan CNP [address] [facility] [place] [address] PCP - General Family Medicine 02/13/24 Linda Mckeon MD [address] [place] [address] Radiation Oncology 12/20/24 Treating Machine Operator Relationship Specialty Start Date End Date Zoë Kaplan CNP [address] [place] [address] PCP - General Family Medicine 02/13/24 Linda Mckeon MD [address] [place] [address] Radiation Oncology 12/20/24 Treating Machine Operator Relationship Specialty Start Date End Date Zoë Kaplan CNP [address] [place] [address] PCP - General Family Medicine 02/13/24 Linda Mckeon MD [address] [place] [address] Radiation Oncology 12/20/24 Treating Machine Operator Relationship Specialty Start Date End Date Zoë Kaplan CNP [address] [place] [address] PCP - General Family Medicine 02/13/24 Linda Mckeon MD [address] [place] [address] Radiation Oncology 12/20/24 Treating Machine Operator Relationship Specialty Start Date End Date Zoë Kaplan CNP [address] [place] [address] PCP - General Family Medicine 02/13/24 Linda Mckeon MD [address] [place] [address] Radiation Oncology 12/20/24 Treating Machine Operator Relationship Specialty Start Date End Date Zoë Kaplan CNP [address] [facility] [place] [address] PCP - General Family Medicine 02/13/24 Linda Mckeon MD [address] [facility] [place] [address] Radiation Oncology 12/20/24 Treating Machine Operator Relationship Specialty Start Date End Date Zoë Kaplan CNP [address] [facility] [place] [address] PCP - General Family Medicine 02/13/24 Linda Mckeon MD [address] [facility] [place] [address] Radiation Oncology 12/20/24 Treating Machine Operator Relationship Specialty Start Date End Date Zoë Kaplan CNP [address] [facility] [place] [address] PCP - General Family Medicine 02/13/24 Linda Mckeon MD [address] [facility] [address] Radiation Oncology 12/20/24 Team Status: Active Member Role/Relationship Status Dates Zoë Kaplan TECHNICAL SALES ADVISOR, TECHNICAL SALES ADVISOR-C Primary Care Provider Active Team Status: Inactive Member Role/Relationship Status Dates Zoë Kaplan TECHNICAL SALES ADVISOR, TECHNICAL SALES ADVISOR-C Primary Care Provider Active Start: February 10, 2025 End: February 10, 2025 Zoë Kaplan TECHNICAL SALES ADVISOR, TECHNICAL SALES ADVISOR-C Referring Provider Active S tart: February 10, 2025 End: February 10, 2025 Michelle An TECHNICAL SALES ADVISOR, TECHNICAL SALES ADVISOR-C Attending Provider Active Start: February 10, 2025 End: February 10, 2025 Treating Machine Operator Relationship Specialty Start Date End Date Zoë Kaplan CNP [address] [place] [address] PCP - General Family Medicine 02/13/24 Linda Mckeon MD [address] [place] [address] Radiation Oncology 12/20/24 Treating Machine Operator Relationship Specialty Start Date End Date Zoë Kaplan CNP [address] [facility] [place] [address] PCP - General Family Medicine 02/13/24 Linda Mckeon MD [address] [place] [address] Radiation Oncology 12/20/24 Treating Machine Operator Relationship Specialty Start Date End Date Zoë Kaplan CNP [address] [place] [address] PCP - General Family Medicine 02/13/24 Linda Mckeon MD [address] [place] [address] Radiation Oncology 12/20/24 Treating Machine Operator Relationship Specialty Start Date End Date Rachid Neville MD [address] [facility] [place] [address] PCP - General Family Medicine 09/11/23 Zoë Kaplan APRN - OUTDOOR ADVENTURE INSTRUCTOR [address] [facility] [place] [address] Nurse Practitioner Nurse Practitioner Family 01/21/25 Treating Machine Operator Relationship Specialty Start Date End Date Rachid Neville MD [address] [place] [address] PCP - General Family Medicine 09/11/23 Zoë Kaplan APRN - OUTDOOR ADVENTURE INSTRUCTOR [address] [facility] [place] [address] Nurse Practitioner Nurse Practitioner Family 01/21/25 Treating Machine Operator Relationship Specialty Start Date End Date Rachid Neville MD [address] [place] [address] PCP - General Family Medicine 09/11/23 Zoë Kaplan APRN - OUTDOOR ADVENTURE INSTRUCTOR [address] [facility] [place] [address] Nurse Practitioner Nurse Practitioner [facility] 01/21/25 Treating Machine Operator Relationship Specialty Start Date End Date Zëo Kaplan CNP [address] [facility] [place] [address] PCP - General Family Medicine 02/13/24 Linda Mckeon MD [address] [place] [address] Radiation Oncology 12/20/24 Source Comments (unrecognize d section and content) In the event this informatio n is protected by the Federal Confidentiality of Alcohol and Drug Abuse Patient Records regulations: The Federal rules restrict any use of the information to criminally investigate or prosecute any alcohol or drug abuse patient.[facility] the event this information is protected by the Federal Confidentiality of Alcohol and Drug Abuse Patient Records regulations: The Federal rules restrict any use of the information to criminally investigate or prosecute any alcohol or drug abuse patient.[facility] Center[facility] the event this information is protected by the Federal Confidentiality of Alcohol and Drug Abuse Patient Records regulations: The Federal rules restrict any use of the information to criminally investigate or prosecute any alcohol or drug abuse patient.[facility] Center[facility] the event this information is protected by the Federal Confidentiality of Alcohol and Drug Abuse Patient Records regulations: The Federal rules restrict any use of the information to criminally investigate or prosecute any alcohol or drug abuse patient.[facility] Center[facility] the event this information is protected by the Federal Confidentiality of Alcohol and Drug Abuse Patient Records regulations: The Federal rules restrict any use of the information to criminally investigate or prosecute any alcohol or drug abuse patient.[facility] Center[facility] the event this information is protected by the Federal Confidentiality of Alcohol and Drug Abuse Patient Records regulations: The Federal rules restrict any use of the information to criminally investigate or prosecute any alcohol or drug abuse patient.[facility] Center[facility] the event this information is protected by the Federal Confidentiality of Alcohol and Drug Abuse Patient Records regulations: The Federal rules restrict any use of the information to criminally investigate or prosecute any alcohol or drug abuse patient.[facility] Center[facility] the event this information is protected by the Federal Confidentiality of Alcohol and Drug Abuse Patient Records regulations: The Federal rules restrict any use of the information to criminally investigate or prosecute any alcohol or drug abuse patient.[facility] the event this information is protected by the Federal Confidentiality of Alcohol and Drug Abuse Patient Records regulations: The Federal rules restrict any use of the information to criminally investigate or prosecute any alcohol or drug abuse patient.[facility] Center[facility] the event this information is protected by the Federal Confidentiality of Alcohol and Drug Abuse Patient Records regulations: The Federal rules restrict any use of the information to criminally investigate or prosecute any alcohol or drug abuse patient.[facility] Center[facility] the event this information is protected by the Federal Confidentiality of Alcohol and Drug Abuse Patient Records regulations: The Federal rules restrict any use of the information to criminally investigate or prosecute any alcohol or drug abuse patient.[facility] Center[facility] the event this information is protected by the Federal Confidentiality of Alcohol and Drug Abuse Patient Records regulations: The Federal rules restrict any use of the information to criminally investigate or prosecute any alcohol or drug abuse patient.[facility] CenterIn the event this information is protected by the Federal Confidentiality of Alcohol and Drug Abuse Patient Records regulations: The Federal rules restrict any use of the information to criminally investigate or prosecute any alcohol or drug abuse patient.[facility] CenterIn the event this information is protected by the Federal Confidentiality of Alcohol and Drug Abuse Patient Records regulations: The Federal rules restrict any use of the information to criminally investigate or prosecute any alcohol or drug abuse patient.[facility] CenterIn the event this information is protected by the Federal Confidentiality of Alcohol and Drug Abuse Patient Records regulations: The Federal rules restrict any use of the information to criminally investigate or prosecute any alcohol or drug abuse patient.[facility] CenterIn the event this information is protected by the Federal Confidentiality of Alcohol and Drug Abuse Patient Records regulations: The Federal rules restrict any use of the information to criminally investigate or prosecute any alcohol or drug abuse patient.[facility] CenterIn the event this information is protected by the Federal Confidentiality of Alcohol and Drug Abuse Patient Records regulations: The Federal rules restrict any use of the information to criminally investigate or prosecute any alcohol or drug abuse patient.[facility] the event this information is protected by the Federal Confidentiality of Alcohol and Drug Abuse Patient Records regulations: The Federal rules restrict any use of the information to criminally investigate or prosecute any alcohol or drug abuse patient.[facility] CenterIn the event this information is protected by the Federal Confidentiality of Alcohol and Drug Abuse Patient Records regulations: The Federal rules restrict any use of the information to criminally investigate or prosecute any alcohol or drug abuse patient.[facility] CenterIn the event this information is protected by the Federal Confidentiality of Alcohol and Drug Abuse Patient Records regulations: The Federal rules restrict any use of the information to criminally investigate or prosecute any alcohol or drug abuse patient.[facility] ClinicIn the event this information is protected by the Federal Confidentiality of Alcohol and Drug Abuse Patient Records regulations: The Federal rules restrict any use of the information to criminally investigate or prosecute any alcohol or drug abuse patient.[facility] CenterIn the event this information is protected by the Federal Confidentiality of Alcohol and Drug Abuse Patient Records regulations: The Federal rules restrict any use of the information to criminally investigate or prosecute any alcohol or drug abuse patient.[facility] CenterIn the event this information is protected by the Federal Confidentiality of Alcohol and Drug Abuse Patient Records regulations: The Federal rules restrict any use of the information to criminally investigate or prosecute any alcohol or drug abuse patient.[facility] CenterIn the event this information is protected by the Federal Confidentiality of Alcohol and Drug Abuse Patient Records regulations: The Federal rules restrict any use of the information to criminally investigate or prosecute any alcohol or drug abuse patient.[facility] CenterIn the event this information is protected by the Federal Confidentiality of Alcohol and Drug Abuse Patient Records regulations: The Federal rules restrict any use of the information to criminally investigate or prosecute any alcohol or drug abuse patient.[facility] CenterIn the event this information is protected by the Federal Confidentiality of Alcohol and Drug Abuse Patient Records regulations: The Federal rules restrict any use of the information to criminally investigate or prosecute any alcohol or drug abuse patient.[facility] CenterIn the event this information is protected by the Federal Confidentiality of Alcohol and Drug Abuse Patient Records regulations: The Federal rules restrict any use of the information to criminally investigate or prosecute any alcohol or drug abuse patient.[facility] CenterIn the event this information is protected by the Federal Confidentiality of Alcohol and Drug Abuse Patient Records regulations: The Federal rules restrict any use of the information to criminally investigate or prosecute any alcohol or drug abuse patient.[facility] CenterIn the event this information is protected by the Federal Confidentiality of Alcohol and Drug Abuse Patient Records regulations: The Federal rules restrict any use of the information to criminally investigate or prosecute any alcohol or drug abuse patient.[facility] CenterIn the event this information is protected by the Federal Confidentiality of Alcohol and Drug Abuse Patient Records regulations: The Federal rules restrict any use of the information to criminally investigate or prosecute any alcohol or drug abuse patient.[facility] CenterIn the event this information is protected by the Federal Confidentiality of Alcohol and Drug Abuse Patient Records regulations: The Federal rules restrict any use of the information to criminally investigate or prosecute any alcohol or drug abuse patient.[facility] CenterIn the event this information is protected by the Federal Confidentiality of Alcohol and Drug Abuse Patient Records regulations: The Federal rules restrict any use of the information to criminally investigate or prosecute any alcohol or drug abuse patient.[facility] CenterIn the event this information is protected by the Federal Confidentiality of Alcohol and Drug Abuse Patient Records regulations: The Federal rules restrict any use of the information to criminally investigate or prosecute any alcohol or drug abuse patient.[facility] CenterIn the event this information is protected by the Federal Confidentiality of Alcohol and Drug Abuse Patient Records regulations: The Federal rules restrict any use of the information to criminally investigate or prosecute any alcohol or drug abuse patient.[facility] CenterIn the event this information is protected by the Federal Confidentiality of Alcohol and Drug Abuse Patient Records regulations: The Federal rules restrict any use of the information to criminally investigate or prosecute any alcohol or drug abuse patient.[facility] CenterIn the event this information is protected by the Federal Confidentiality of Alcohol and Drug Abuse Patient Records regulations: The Federal rules restrict any use of the information to criminally investigate or prosecute any alcohol or drug abuse patient.[facility] CenterIn the event this information is protected by the Federal Confidentiality of Alcohol and Drug Abuse Patient Records regulations: The Federal rules restrict any use of the information to criminally investigate or prosecute any alcohol or drug abuse patient.[facility] CenterIn the event this information is protected by the Federal Confidentiality of Alcohol and Drug Abuse Patient Records regulations: The Federal rules restrict any use of the information to criminally investigate or prosecute any alcohol or drug abuse patient.[facility] CenterIn the event this information is protected by the Federal Confidentiality of Alcohol and Drug Abuse Patient Records regulations: The Federal rules restrict any use of the information to criminally investigate or prosecute any alcohol or drug abuse patient.[facility] CenterIn the event this information is protected by the Federal Confidentiality of Alcohol and Drug Abuse Patient Records regulations: The Federal rules restrict any use of the information to criminally investigate or prosecute any alcohol or drug abuse patient.[facility] CenterIn the event this information is protected by the Federal Confidentiality of Alcohol and Drug Abuse Patient Records regulations: The Federal rules restrict any use of the information to criminally investigate or prosecute any alcohol or drug abuse patient.[facility] CenterIn the event this information is protected by the Federal Confidentiality of Alcohol and Drug Abuse Patient Records regulations: The Federal rules restrict any use of the information to criminally investigate or prosecute any alcohol or drug abuse patient.[facility] CenterIn the event this information is protected by the Federal Confidentiality of Alcohol and Drug Abuse Patient Records regulations: The Federal rules restrict any use of the information to criminally investigate or prosecute any alcohol or drug abuse patient.[facility] CenterIn the event this information is protected by the Federal Confidentiality of Alcohol and Drug Abuse Patient Records regulations: The Federal rules restrict any use of the information to criminally investigate or prosecute any alcohol or drug abuse patient.[facility] CenterIn the event this information is protected by the Federal Confidentiality of Alcohol and Drug Abuse Patient Records regulations: The Federal rules restrict any use of the information to criminally investigate or prosecute any alcohol or drug abuse patient.[facility] CenterIn the event this information is protected by the Federal Confidentiality of Alcohol and Drug Abuse Patient Records regulations: The Federal rules restrict any use of the information to criminally investigate or prosecute any alcohol or drug abuse patient.[facility] CenterIn the event this information is protected by the Federal Confidentiality of Alcohol and Drug Abuse Patient Records regulations: The Federal rules restrict any use of the information to criminally investigate or prosecute any alcohol or drug abuse patient.[facility] CenterIn the event this information is protected by the Federal Confidentiality of Alcohol and Drug Abuse Patient Records regulations: The Federal rules restrict any use of the information to criminally investigate or prosecute any alcohol or drug abuse patient.[facility] CenterIn the event this information is protected by the Federal Confidentiality of Alcohol and Drug Abuse Patient Records regulations: The Federal rules restrict any use of the information to criminally investigate or prosecute any alcohol or drug abuse patient.[facility] CenterIn the event this information is protected by the Federal Confidentiality of Alcohol and Drug Abuse Patient Records regulations: The Federal rules restrict any use of the information to criminally investigate or prosecute any alcohol or drug abuse patient.[facility] CenterIn the event this information is protected by the Federal Confidentiality of Alcohol and Drug Abuse Patient Records regulations: The Federal rules restrict any use of the information to criminally investigate or prosecute any alcohol or drug abuse patient.[facility] CenterIn the event this information is protected by the Federal Confidentiality of Alcohol and Drug Abuse Patient Records regulations: The Federal rules restrict any use of the information to criminally investigate or prosecute any alcohol or drug abuse patient.[facility] CenterIn the event this information is protected by the Federal Confidentiality of Alcohol and Drug Abuse Patient Records regulations: The Federal rules restrict any use of the information to criminally investigate or prosecute any alcohol or drug abuse patient.[facility] CenterIn the event this information is protected by the Federal Confidentiality of Alcohol and Drug Abuse Patient Records regulations: The Federal rules restrict any use of the information to criminally investigate or prosecute any alcohol or drug abuse patient.[facility] CenterIn the event this information is protected by the Federal Confidentiality of Alcohol and Drug Abuse Patient Records regulations: The Federal rules restrict any use of the information to criminally investigate or prosecute any alcohol or drug abuse patient.[facility] CenterIn the event this information is protected by the Federal Confidentiality of Alcohol and Drug Abuse Patient Records regulations: The Federal rules restrict any use of the information to criminally investigate or prosecute any alcohol or drug abuse patient.[facility] CenterIn the event this information is protected by the Federal Confidentiality of Alcohol and Drug Abuse Patient Records regulations: The Federal rules restrict any use of the information to criminally investigate or prosecute any alcohol or drug abuse patient.[facility] CenterIn the event this information is protected by the Federal Confidentiality of Alcohol and Drug Abuse Patient Records regulations: The Federal rules restrict any use of the information to criminally investigate or prosecute any alcohol or drug abuse patient.[facility] CenterIn the event this information is protected by the Federal Confidentiality of Alcohol and Drug Abuse Patient Records regulations: The Federal rules restrict any use of the information to criminally investigate or prosecute any alcohol or drug abuse patient.[facility] Goals (unrecognized section and content) Goals may be documented in a n alternate section FOR RECORDS PERTAINING TO PATIENTS WHO ARE OR HAVE BEEN ENROLLED IN A CHEMICAL DEPENDENCY/SUBSTANCEABUSE PROGRAM, SOME INFORMATION MAY BE OMITTED. This clinical summary was aggregated from multiple sources. Caution should be exercised in using it in the provision of clinical care. This summary normalizes information from multiple sources, and as a consequence, information in this document may materially change the coding, format and clinical context of patient data. In addition, data may be omitted in some cases. CLINICAL DECISIONS SHOULD BE BASED ON THE PRIMARY CLINICAL RECORDS. [facility]. provides no warranty or guarantee of the accuracy or completeness of information in this document.
[2025-04-04 16:51] VITALS: BMI 31.7
[2025-04-04] MEDS: 0.9% Normal Saline (1000mL) 1,000 ML 50 ML IV (17:14)
[2025-04-04 19:13] LABS: Vitamin B12 540 pg/mL (180-914); Vitamin D,25 Hydroxy 46.2 ng/mL (30-100)
[2025-04-04 19:47] VITALS: BP 149/85; PULSE 83; RESP 20; TEMP 36.7; O2SAT 95
[2025-04-04] MEDS: 0.9% Saline Lock 10 ML Syringe IV (20:20)
[2025-04-04 23:36] VITALS: BP 144/85; PULSE 78; RESP 20; TEMP 36.9; O2SAT 100
[2025-04-05 06:41] VITALS: BP 143/59; PULSE 77; RESP 20; TEMP 36.7; O2SAT 94
[2025-04-05 06:47] LABS: Hematocrit 36.3 % (37-47); Hemoglobin 11.9 g/dL (12.0-15.0); Immature Granulocytes Count 0.020 X10^3/uL (0.0-0.0); Mean Corp Hgb Conc 32.8 g/dL (32-36); Mean Corpuscular Volume 91.7 fL (81-99); Mean Platelet Vol. 9.5 fl (6.2-12.0); NRBC Flagged by Analyzer 0 % (0-5); Platelet Count 167 K/mm3 (150-450); RBC Distribution Width CV 13.5 % (11.6-14.6); RBC Distribution Width SD 45.7 fl (35.1-43.9); Red Blood Count 3.96 M/mm3 (4.2-5.4); White Blood Count 6.6 K/mm3 (4.4-11.0)
[2025-04-05] MEDS: 0.9% Saline Lock 10 ML Syringe IV (06:47)
[2025-04-05 07:11] LABS: Anion Gap 10 (5-15); BUN 14 mg/dL (4-19); BUN/Creat Ratio 15.1 RATIO (10-20); Calcium,Total 9.1 mg/dL (7.6-11.0); Carbon Dioxide 24.4 mmol/L (21.0-32.0); Chloride 104 mmol/L (98-108); Estimated Creatinine Clearance 47.01 ml/min (50-250); Glucose 105 mg/dL (70-99); Magnesium 2.1 mg/dL (1.5-2.2); Potassium 4.0 mmol/L (3.3-5.1)
--- NOTE | 2025-04-05 09:09 | PN.HOSP_ITS ---
Subjective Subjective No issues overnight Objective Data Objective Data Vital Signs: Vital Signs Temp Pulse Resp BP Pulse Ox O2 Del Method 98.1 F 77 20 H 143/59 H 94 Room Air 04/05/25 06:41 04/05/25 06:41 04/05/25 06:41 04/05/25 06:41 04/05/25 06:41 04/05/25 06:41 Oxygen Delivery Method Room Air Weight: 184 lb 14.4 oz Body Mass Index (BMI) 31.7 Intake & Output: Intake and Output for Last 24 Hours 04/04/25 04/05/25 04/06/25 03:59 03:59 03:59 Intake Total 500 / 500 Balance 500 / 500 Lab / Micro Data 04/05/25 06:32 04/05/25 06:32 Labs: Laboratory Results - last 24 hr 04/04/25 12:48: WBC 8.0, RBC 4.05 L, Hgb 12.4, Hct 36.6 L, MCV 90.4, MCH 30.6, MCHC 33.9, RDW Std Deviation 45.4 H, RDW Coeff of Tung 13.6, Plt Count 173, MPV 9.2, Immature Gran % (Auto) 0.200, Neut % (Auto) 79.7 H, Lymph % (Auto) 10.0 L, Roane % (Auto) 7.0, Eos % (Auto) 2.6, Baso % (Auto) 0.5, Absolute Neuts (auto) 6.4, Absolute Lymphs (auto) 0.80 L, Nucleated RBC % 0, Sodium 140, Potassium 4.0, Chloride 102, Carbon Dioxide 26.7, Anion Gap 11, BUN 18, Creatinine 0.97, E stim Creat Clear Calc 44.20 L, Est GFR (MDRD) Non-Af 57 L, BUN/Creatinine Ratio 18.5, Glucose 96, Calcium 9.6, Vitamin B12 540, Vitamin D 25-Hydroxy 46.2 04/04/25 14:20: Urine Color Yellow, Urine Clarity Clear, Urine pH 7.0, Ur Specific Gaffney 1.010, Urine Protein Negative, Urine Glucose (UA) Normal, Urine Ketones Negative, Urine Occult Blood Negative, Urine Nitrite Negative, Urine Bilirubin Negative, Urine Urobilinogen Normal, Ur Leukocyte Esterase Negative, Urine RBC 0 SEEN, Urine WBC 0 SEEN, Ur Squamous Epith Cells 0 SEEN, Urine Bacteria 0 SEEN, Urine Mucus 0 SEEN 04/05/25 06:32: WBC 6.6, RBC 3.96 L, Hgb 11.9 L, Hct 36.3 L, MCV 91.7, MCH 30.1, MCHC 32.8, RDW Std Deviation 45.7 H, RDW Coeff of Tung 13.5, Plt Count 167, MPV 9.5, Immature Gran % (Auto) 0.300, Neut % (Auto) 74.3 H, Lymph % (Auto) 12.0 L, Roane % (Auto) 8.6, Eos % (Auto) 4.2, Baso % (Auto) 0.6, Absolute Neuts (auto) 4.9, Absolute Lymphs (auto) 0.79 L, Nucleated RBC % 0, Sodium 139, Potassium 4.0, Chloride 104, Carbon Dioxide 24.4, Anion Gap 10, BUN 14, Creatinine 0.90, E stim Creat Clear Calc 47.01 L, Est GFR (MDRD) Non-Af 63, BUN/Creatinine Ratio 15.1, Glucose 105 H, Calcium 9.1, Phosphorus 3.2, Magnesium 2.1, TSH 4.230 H Radiography Diagnostic Testing: Radiology Impression Brain CT 04/04/25 13:03 IMPRESSION: Previous left craniotomy with underlying surgical changes No definitive residual recurrent mass. Negative for acute intracranial pathology. Reading Location: [id number] Chest X-Ray 04/04/25 13:05 IMPRESSION: No Acute Findings. Reading Location: [facility] Rhythm Strip Rhythm Strip: Sinus Rhythm Rate: 72 Ectopy: None Physical Exam Narrative General: Alert, Oriented x1-2 though mentation appears on the slower end, Cooperative, No apparent distress HEENT: Atraumatic, PERRLA, EOMI, Normocephalic Oral: Moist Mucosa Neck: Supple, No JVD Lungs: Diminished, normal air movement, No rhonchi, No wheeze, No rales Cardiovascular: Regular rate, Regular Rhythm, Normal S1, Normal S2, No murmurs Abdomen: Soft, Non Tender, Non-Distended, No Hepato-splenomegaly Extremities: No edema, Capillary Refill Less than 3 Seconds Skin: No rashes, No breakdown Musculoskeletal: No Tenderness to Palpation of Joints or Extremities Neurological: No focal neurological deficits, moves all extremities Psych/Mental Status: Flat Assessment & Plan Assessment/Plan (1) Generalized weakness: PLAN: Plan 1. Generalized weakness with failure to thrive and inability to complete ADLs ? So far workup has been negative for an organic cause ? B12, TSH, and vitamin D are all normal ? PT/OT ? Consult case management for disposition 2. History of brain tumor with postoperative seizures ? 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 She then completed radiation for residual tumor ? Continue with Keppra for seizure disorders 3. Hyperlipidemia ? Stable ? Continue with Crestor DVT: SCDs Charges/Coding Visit Charges Inpatient E&M: 09223 Subs Hosp L2
[2025-04-05 09:19] VITALS: BP 159/65; PULSE 78; RESP 20; TEMP 36.5; O2SAT 97
[2025-04-05] MEDS: Tolterodine Tartrate 4 MG CAP.SA PO (09:28)
[2025-04-05 12:00] VITALS: O2SAT 97
--- NOTE | 2025-04-05 12:28 | CASEMGMT ---
ZOHREH RENEE NOTE/CARRILLO: ZOHREH RENEE to room. Pt sitting up in chair. in room, NINILCHIK. DaughterTrina, and another family member also in room, visiting pt. Intro role of CM to patient and CARRILLO form explained re: Observation status for treatment of generalized weakness, dehydration.? Explained hospitalization will be paid per?her insurance policy for Outpatient billing?and condition will continue to be evaluated for Inpt necessity. Also let pt know that [facility] sends paper in the billing packet with their phone number if questions arise. DaughterTrina, verbalizes understanding and denies having any questions. ?Form signed, copy made and placed in chart, and original given to Trina. Chantal HERNANDES RN CM
--- NOTE | 2025-04-05 13:02 | CASEMGMT ---
Social Work- SW Assessment: Face to Face with pt for initial transition planning/care coordination assessment. SW introduced self and role at [facility], pt dtr Trina and her Chris, as well as pt spouse Rohan. Care providers, pharmacy, and demographics verified/updated. PCP: Zoë Kaplan [employer] Specialists: Dr Mckeon (radiation oncology), Dr Alamo (neurosurgeon) Preferred Pharmacy: [facility] Pres[facility] Benefit: yes LNOK: Rohan (), Zuleima (HCPOA, dtr), Trina (dtr), Román (son) Living Arrangements: Pt lives in a single story home with spouse. There are 3 stairs to enter the front entrance and the rear entrance from the patio is flat. Pt family reports that until 2 weeks ago, pt was mostly independent, only requiring some assistance with household tasks like laundry. Since pt decline two weeks ago, pt is a total assist with all care/ADL/IADL. Pt dtr reports that pt cannot be within proximity of medications, as she mixed her medications in her pill box up. Transportation: Pt spouse drives, but family prefers pt spouse not drive, so they often take pt to appointments DME:has a shower chair, raised toilet seat, rollator, and grab bars. Pt did not previously use any DME prior to the last two weeks. HHC/SNF: [facility]. Recently (04/03/25) assessed for services by Rosibel Mcclain [facility]. ([phone]). SW called to inform of OBS status in hospital. Pt spouse requesting referral to [facility]. SW provided education on RU admission requirements. Pt spouse persists that [facility] remains FOC. SW completed referral. SW provided SNF list in the event of denial of referral. SW provided private duty HHC list as well per family request, as plan is to have pt return home with assistance if pt is able to make some improvement. THONG remains available to follow. MT Holland
[2025-04-05 15:52] VITALS: BP 116/65; PULSE 74; RESP 16; TEMP 36.8; O2SAT 98
[2025-04-05 22:00] VITALS: BP 133/70; PULSE 84; RESP 16; TEMP 36.9; O2SAT 99
[2025-04-06 04:00] VITALS: BP 147/68; PULSE 70; RESP 16; TEMP 37.2; O2SAT 95
[2025-04-06 04:53] LABS: Hematocrit 34.0 % (37-47); Hemoglobin 11.2 g/dL (12.0-15.0); Immature Granulocytes Count 0.020 X10^3/uL (0.0-0.0); Mean Corp Hgb Conc 32.9 g/dL (32-36); Mean Corpuscular Volume 91.9 fL (81-99); Mean Platelet Vol. 9.6 fl (6.2-12.0); NRBC Flagged by Analyzer 0 % (0-5); Platelet Count 174 K/mm3 (150-450); RBC Distribution Width CV 13.6 % (11.6-14.6); RBC Distribution Width SD 45.6 fl (35.1-43.9); Red Blood Count 3.70 M/mm3 (4.2-5.4); White Blood Count 5.7 K/mm3 (4.4-11.0)
[2025-04-06 04:59] LABS: Anion Gap 11 (5-15); BUN 16 mg/dL (4-19); BUN/Creat Ratio 17.7 RATIO (10-20); Calcium,Total 9.1 mg/dL (7.6-11.0); Carbon Dioxide 23.9 mmol/L (21.0-32.0); Chloride 103 mmol/L (98-108); Estimated Creatinine Clearance 45.49 ml/min (50-250); Glucose 124 mg/dL (70-99); Potassium 4.1 mmol/L (3.3-5.1)
[2025-04-06 09:20] VITALS: BP 125/73; PULSE 81; RESP 16; TEMP 36.6; O2SAT 97
[2025-04-06] MEDS: Tolterodine Tartrate 4 MG CAP.SA PO (09:29)
--- NOTE | 2025-04-06 10:32 | PCM.PN.HOSP ---
Subjective Subjective Doing well, no issues overnight Objective Data Objective Data Vital Signs: Vital Signs Temp Pulse Resp BP Pulse Ox O2 Del Method 97.9 F 81 16 125/73 H 97 Room Air 04/06/25 09:20 04/06/25 09:20 04/06/25 09:20 04/06/25 09:20 04/06/25 09:20 04/06/25 09:22 Oxygen Delivery Method Room Air Weight: 184 lb 14.4 oz Body Mass Index (BMI) 31.7 Intake & Output: Intake and Output for Last 24 Hours 04/05/25 04/06/25 04/07/25 03:59 03:59 03:59 Intake Total 500 / 500 1800 / 1800 Balance 500 / 500 1800 / 1800 Lab / Micro Data 04/06/25 03:58 04/06/25 03:58 Labs: Laboratory Results - last 24 hr 04/06/25 03:58: WBC 5.7, RBC 3.70 L, Hgb 11.2 L, Hct 34.0 L, MCV 91.9, MCH 30.3, MCHC 32.9, RDW Std Deviation 45.6 H, RDW Coeff of Tung 13.6, Plt Count 174, MPV 9.6, Immature Gran % (Auto) 0.400, Neut % (Auto) 66.8, Lymph % (Auto) 16.7 L, [place] % (Auto) 10.5 H, Eos % (Auto) 5.1 H, Baso % (Auto) 0.5, Absolute Neuts (auto) 3.8, Absolute Lymphs (auto) 0.95, Nucleated RBC % 0, Sodium 138, Potassium 4.1, Chloride 103, Carbon Dioxide 23.9, Anion Gap 11, BUN 16, Creatinine 0.93, Estim Creat Clear Calc 45.49 L, Est GFR (MDRD) Non-Af 60, BUN/Creatinine Ratio 17.7, Glucose 124 H, Calcium 9.1 Rhythm Strip Rhythm Strip: Sinus Rhythm Rate: 72 Ectopy: None Physical Exam Narrative General: Alert, Oriented x1-2 though mentation appears on the slower end, Cooperative, No apparent distress HEENT: Atraumatic, PERRLA, EOMI, Normocephalic Oral: Moist Mucosa Neck: Supple, No JVD Lungs: Diminished, normal air movement, No rhonchi, No wheeze, No rales Cardiovascular: Regular rate, Regular Rhythm, Normal S1, Normal S2, No murmurs Abdomen: Soft, Non Tender, Non-Distended, No Hepato-splenomegaly Extremities: No edema, Capillary Refill Less than 3 Seconds Skin: No rashes, No breakdown Musculoskeletal: No Tenderness to Palpation of Joints or Extremities Neurological: No focal neurological deficits, moves all extremities Psych/Mental Status: Flat Assessment & Plan Assessment/Plan (1) Generalized weakness: PLAN: Plan 1. Generalized weakness with failure to thrive and inability to complete ADLs ? So far workup has been negative for an organic cause ? B12, TSH, and vitamin D are all normal ? PT/OT ? Consult case management for disposition 2. History of brain tumor with postoperative seizures ? 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 She then completed radiation for residual tumor ? Continue with Keppra for seizure disorders 3. Hyperlipidemia ? Stable ? Continue with Crestor DVT: SCDs Charges/Coding Visit Charges Inpatient E&M: 79688 Subs Hosp L2
[2025-04-06 17:40] VITALS: BP 149/77; PULSE 85; RESP 16; TEMP 36.7; O2SAT 100
[2025-04-06 22:00] VITALS: BP 157/75; PULSE 88; RESP 16; TEMP 36.7; O2SAT 100
[2025-04-07 04:00] VITALS: BP 148/74; PULSE 87; RESP 16; TEMP 36.8; O2SAT 98
--- NOTE | 2025-04-07 08:42 | PCM.PN.HOSP ---
Subjective Subjective No change from previous Objective Data Objective Data Vital Signs: Vital Signs Temp Pulse Resp BP Pulse Ox O2 Del Method 98.2 F 87 16 148/74 H 98 Room Air 04/07/25 04:00 04/07/25 04:00 04/07/25 04:00 04/07/25 04:00 04/07/25 04:00 04/07/25 04:00 Oxygen Delivery Method Room Air Weight: 184 lb 14.4 oz Body Mass Index (BMI) 31.7 Intake & Output: Intake and Output for Last 24 Hours 04/06/25 04/07/25 04/08/25 03:59 03:59 03:59 Intake Total 1800 / 1800 750 / 750 100 / 100 Output Total 800 / 800 300 / 300 Balance 1800 / 1800 -50 / -50 -200 / -200 Lab / Micro Data 04/06/25 03:58 04/06/25 03:58 Rhythm Strip Rhythm Strip: Sinus Rhythm Rate: 72 Ectopy: None Physical Exam Narrative General: Alert, Oriented x1-2 though mentation appears on the slower end, Cooperative, No apparent distress HEENT: Atraumatic, PERRLA, EOMI, Normocephalic Oral: Moist Mucosa Neck: Supple, No JVD Lungs: Diminished, normal air movement, No rhonchi, No wheeze, No rales Cardiovascular: Regular rate, Regular Rhythm, Normal S1, Normal S2, No murmurs Abdomen: Soft, Non Tender, Non-Distended, No Hepato-splenomegaly Extremities: No edema, Capillary Refill Less than 3 Seconds Skin: No rashes, No breakdown Musculoskeletal: No Tenderness to Palpation of Joints or Extremities Neurological: No focal neurological deficits, moves all extremities Psych/Mental Status: Flat Assessment & Plan Assessment/Plan (1) Generalized weakness: PLAN: Plan 1. Generalized weakness with failure to thrive and inability to complete ADLs ? So far workup has been negative for an organic cause ? B12, TSH, and vitamin D are all normal ? PT/OT ? Consult case management for disposition ? Awaiting pre-CERT 2. History of brain tumor with postoperative seizures ? 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 She then completed radiation for residual tumor ? Continue with Keppra for seizure disorders 3. Hyperlipidemia ? Stable ? Continue with Crestor DVT: SCDs Charges/Coding Visit Charges Inpatient E&M: 48486 Subs Hosp L1
[2025-04-07 08:52] VITALS: BP 148/70; PULSE 88; RESP 18; TEMP 36.2; O2SAT 95
--- NOTE | 2025-04-07 11:04 | CASEMGMT ---
Social Work Pt was accepted in rehab and precert was started, though it is not anticipated that it will be approved. Pt is not fully alert and oriented at this time. SW called daughter/POA Zuleima, message left. SW will continue to follow. COREY Ruffin
--- NOTE | 2025-04-07 14:48 | CASEMGMT ---
Social Work Pt's asked to speak w/SW. SW let pt's know that we are waiting for precert for rehab, however it may not be approved as pt does not have a rehab diagnosis. Pt's did not seem to fully understand SW and continually asked SW about pt's diagnoses. SW explained will have pt's nurse come in to speak w/him. He did ask about [place], as it is closer to home. SW then called pt's POA daughter Zuleima again. SW explained did speak to pt's but it seems he did not fully understand what SW was explaining. SW let Zuleima know pt was accepted in rehab and precert was started, but pt may not be approved. SW asked daughter for SNF choices if pt's insurance does not approve rehab. Zuleima would want a referral to TCU. SW explained pt's said [place], Zuleima thinks he was thinking [place] for outpt, not for their TCU. SW explained will make referral to [facility], and will keep her informed. Referral made to TCU, it is anticipated TCU would take pt if pt is denied rehab by insurance. THONG will continue to follow. COREY Ruffin
--- NOTE | 2025-04-07 15:34 | NURSING ---
Patient came to desk seemingly upset, asked about why patient is weak and not eating. Assisted patient with lunch meal, will tell staff to help patient with feeds. Patient assisted to chair, changed d/t incontinence. Message sent to MD to speak with to assist understanding of patient status and awaiting precert from insurance.
[2025-04-07 16:11] VITALS: BP 136/70; PULSE 80; RESP 17; TEMP 36.6; O2SAT 96
--- NOTE | 2025-04-07 17:08 | NURSING ---
passenger attendant documentation reviewed
[2025-04-07 21:50] VITALS: BP 134/77; PULSE 95; RESP 16; TEMP 37.2; O2SAT 97
[2025-04-08] VITALS (8 sets, daily range): BP systolic 126–202; BP diastolic 70–111; PULSE 80–100; RESP 16–20; TEMP 36.4–38.6; O2SAT 94–99; BMI 31.7
--- NOTE | 2025-04-08 05:51 | CT_ITS ---
PROCEDURE: STROKE BRAIN/HEAD WITHOUT CONT 04/08/2025 REASON FOR EXAM: CHANGE IN MENTAL STATUS TECHNIQUE: Procedure Code: CTBR.ST Modality: CT Procedure: STROKE BRAIN/HEAD WITHOUT CONT Coronal and Sagittal reconstruction series were provided. One or more dose reduction techniques were used (e.g., Automated exposure control, adjustment of the mA and/or kV according to patient size, use of iterative reconstruction technique. RADIATION DOSE SUMMARY: CTDlvol: 44.99 mGy DLP: 931 mGycm COMPARISON: CT scan on 04/04 2025. FINDINGS: Cerebrum: Surgical changes left frontal lobe with leukoencephalopathy. 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 Otherwise mild periventricular white matter changes. Cerebellum: Negative. Negative for mass. Negative for acute infarction. CSF pathways and ventricles: Negative. Negative for ventricular dilatation or obstruction. Basal ganglia and thalami: Negative. No acute infarctions. Brainstem: Midbrain, patricia and medulla otherwisenegative. Calvarium: Negative. Left-sided craniotomy. Orbital structures: Globes negative. Extraocular muscles negative. Paranasal sinuses: Unchanged colonic mucosal inflammatory thickening with air- fluid levels in the paranasal sinuses. Vascular structures: Moderate calcifications of the distal intracranial internal carotid arteries. Soft tissues: Negative. Other: :Negative for acute intracranial hemorrhage. Negative for acute infarction. Remainder of exam negative. CT/STROKE Brain/Head without Cont IMPRESSION: No significant change is noted. No CT evidence of an acute brain abnormality. Reading Location: [place] [id number]
--- NOTE | 2025-04-08 06:02 | CT_ITS ---
PROCEDURE: STROKE CTA HEAD AND NECK W/CON 04/08/2025 REASON FOR EXAM: STROKE TECHNIQUE: Procedure Code: CTCTA.ST.HN Modality: CT Procedure: STROKE CTA HEAD AND NECK W/CON Multiplanar Sagittal and Coronal images were obtained. CONTRAST: Isovue 370 VOLUME: 100 mL One or more dose reduction techniques were used (e.g., Automated exposure control, adjustment of the mA and/or kV according to patient size, use of iterative reconstruction technique). RADIATION DOSE SUMMARY: CTDlvol: 17.5 mGy DLP: 730 mGycm COMPARISON: Unenhanced CT scan of the head on the same day. FINDINGS: Normal bilateral petrous carotid arteries. Calcified atheromatous plaques with mild multifocal stenosis of the right cavernous carotid artery with a normal supraclinoid bifurcation. Calcified atheromatous plaques with mild multifocal stenosis of the left cavernous carotid artery with a normal supraclinoid bifurcation. Normal right A1 segments of the anterior cerebral artery. Normal left A1 segments of the anterior cerebral artery. Normal intact anterior communicating artery (ACOM). Normal bilateral A2 segments of the anterior cerebral arteries. Normal right M1 and M2 segments of the middle cerebral arteries, with a normal M1 bifurcation. Normal left M1 and M2 segments of the middle cerebral arteries, with a normal M1 bifurcation. Normal right posterior communicating artery (PCOM). Normal left posterior communicating artery (PCOM). Normal bilateral vertebral arteries. Normal basilar artery with a normal basilar bifurcation. The visualized bilateral superior cerebellar (SCA) arteries are normal. Normal bilateral P1, P2 and visualized P3 segments of the posterior cerebral arteries. There is no demonstrated aneurysm of the [place]. There is no major vessel occlusion or hemodynamically significant stenosis. There is no demonstrated acute abnormality of the visualized brain. Technique: Axial CT angiographic images of the neck. Reformatted coronal and sagittal images. 3D, MIP images. Reconstructed images were reviewed on a different workstation by radiologist. RIGHT CAROTID ARTERIES: Normal right common carotid artery (CCA). Mild atheromatous plaques of the right common carotid bulb. Normal origin of the right internal carotid (ICA) artery without a hemodynamically significant stenosis. Normal visualized cervical portion of the right internal carotid artery. Normal origin of the right external carotid artery (ECA). LEFT CAROTID ARTERIES: Normal left common carotid artery (CCA). 20% stenosis of the left common carotid bulb. 20% stenosis of the origin of the left internal carotid (ICA) artery without a hemodynamically significant stenosis. Normal visualized cervical portion of the left internal carotid artery. Normal origin of the left external carotid artery (ECA). VERTEBRAL ARTERIES: Normal bilateral vertebral artery without a hemodynamically significant stenosis. CT/STROKE CTA Head AND Neck W/Con IMPRESSION: No evidence of acute occlusion or high-grade stenosis. Reading [facility]
--- NOTE | 2025-04-08 06:05 | EKG12_ITS ---
Test Reason : STROKE ALERT Blood Pressure : */* mmHG Vent. Rate : 97 BPM Atrial Rate : 97 BPM P-R Int : 202 ms QRS Dur : 98 ms QT Int : 346 ms P-R-T Axes : 42 -19 69 degrees QTcB Int : 439 ms Normal sinus rhythm Nonspecific T wave abnormality Abnormal ECG Confirmed by MANISHA GAFFNEY MD ([id number]), supervising editor news reel KAYODE CARREON ([id number]) on 04/08/2025 1:02:52 PM Referred By: HALI Confirmed By: MANISHA GAFFNEY MD
--- NOTE | 2025-04-08 06:38 | PN.HOSP_ITS ---
Reason for Visit Chief Complaint: Generalized weakness Subjective Subjective called to floor for stroke team last known well 1am pt non verbal non responsive in bed, tremor present in upper ext and mouth pt unable to follow commands ekg obtained and pt sent for ct scan Objective Data Objective Data Vital Signs: Vital Signs Temp Pulse Resp BP Pulse Ox O2 Del Method 101.5 F H 95 16 202/111 H 98 Room Air 04/08/25 05:31 04/08/25 05:31 04/08/25 05:31 04/08/25 05:31 04/08/25 05:31 04/08/25 05:31 Oxygen Delivery Method Room Air Weight: 184 lb 14.4 oz Body Mass Index (BMI) 31.7 Intake & Output: Intake and Output for Last 24 Hours 04/06/25 04/07/25 04/08/25 23:59 23:59 23:59 Intake Total 750 / 750 100 / 100 Output Total 800 / 800 300 / 300 Balance -50 / -50 -200 / -200 Lab / Micro Data 04/06/25 03:58 04/06/25 03:58 Radiography Diagnostic Testing: Radiology Impression Brain CT 04/08/25 05:51 IMPRESSION: No significant change is noted. No CT evidence of an acute brain abnormality. Reading Location: [place] [address] Head/Neck CTA 04/08/25 06:02 IMPRESSION: No evidence of acute occlusion or high-grade stenosis. Reading Location: [place] [address] Rhythm Strip Rhythm Strip: Sinus Rhythm Rate: 72 Ectopy: None Physical Exam Const Constitutional Narrative: unresponsive HEENT head/scalp atraumatic Resp normal respiratory effort Cardio regular rate, regular rhythm, S1 normal heart sound and S2 normal heart sound GI soft to palpation Neuro Neuro Narrative: unresponsive Assessment & Plan Assessment/Plan (1) Seizures: (2) Status post craniotomy: (3) Acute alteration in mental status: PLAN: Plan change in mental status pt s/p craniotomy for meningioma and completed radiation therapy 3 weeks ago recent falls and weakness spoke with teleneurology - pt not candidate for thrombolytic therapy ( i was initially informed surgery was completed 3 weeks ago and later learned surgery was a year ago and radiation was completed 3 wks ago) suspect seizure activity and she is on maximum keppra therapy therefore leucovorin 200mg x 1 now and 100mg bid was recommended by [facility] neurologist if pt recovers to baseline in 2 hours then plan is to stay the course- was recommended to discuss case with neurosurgeon to see if they wish to have pt transferred for EEG monitoring page placed to [facility] to discuss case
[2025-04-08] MEDS: Lacosamide 200 MG in 0.9% Normal Saline (50mL Bag) 50 ML 100 MG IV (07:12)
[2025-04-08] MEDS: 0.9% Saline Lock 10 ML Syringe IV ×3 (07:13→21:59)
--- NOTE | 2025-04-08 07:52 | NURSING ---
Found pt unresponsive; pt would not respond to verbal stimuli but would respond and draw away from pain. Last known well was around 0100. Pt was previously A&Ox1 but would respond to yes or no questions and could tell me her name and . Pt was unable to speak or open her eyes and would not follow commands. Pt's HR was 202/111 and temp 101.5. Pt's blood sugar was 154. Pt chronically has tremors but her jaw was shaking, which she did not do previously. A stroke alert was promptly called. NIHs were attempted to be done on pt. Pt would not follow directions. Jodi from PCU spoke with [facility] neuro. Pt was then taken down to CT to be evaluated where an IV was placed. evaluated pt and spoke with [facility]. made the decision to transfer pt to PCU and contact the pts surgeon at [place] that did her craniotomy. Pt was transferred to PCU and report was given to Neal BRUNER. I notified the pt's daughter Trina this morning of what occurred and gave her PCU's number for her to call about further updates about the pt.
--- NOTE | 2025-04-08 08:45 | PN.HOSP_ITS ---
Subjective Subjective She had a stroke alert overnight due to shaking and then was thought to be in a seizure so she was continued on her IV Keppra and started on lacosamide by the neurology. By the time I evaluated her this morning she was attempting to talk but she was very aphasic but she was making eye contact and tracking so clearly not in a seizure any longer. EEG is pending Objective Data Objective Data Vital Signs: Vital Signs Temp Pulse Resp BP Pulse Ox O2 Del Method 99.1 F 100 16 154/97 H 98 Room Air 04/08/25 06:45 04/08/25 06:45 04/08/25 06:45 04/08/25 06:45 04/08/25 06:45 04/08/25 06:45 Oxygen Delivery Method Room Air Weight: 184 lb 14.4 oz Body Mass Index (BMI) 31.7 Intake & Output: Intake and Output for Last 24 Hours 04/07/25 04/08/25 04/09/25 03:59 03:59 03:59 Intake Total 750 / 750 200 / 200 Output Total 800 / 800 300 / 300 Balance -50 / -50 -100 / -100 Lab / Micro Data 04/06/25 03:58 04/06/25 03:58 Labs: Laboratory Results - last 24 hr 04/08/25 05:42: POC Glucose 154 H Radiography Diagnostic Testing: Radiology Impression Brain CT 04/08/25 05:51 IMPRESSION: No significant change is noted. No CT evidence of an acute brain abnormality. [facility] Head/Neck CTA 04/08/25 06:02 IMPRESSION: No evidence of acute occlusion or high-grade stenosis. Reading [facility] Rhythm Strip Rhythm Strip: Sinus Rhythm Rate: 72 Ectopy: None Physical Exam Narrative General: Alert, Oriented x1-2 though mentation appears on the slower end, Cooperative, No apparent distress HEENT: Atraumatic, PERRLA, EOMI, Normocephalic Oral: Moist Mucosa Neck: Supple, No JVD Lungs: Diminished, normal air movement, No rhonchi, No wheeze, No rales Cardiovascular: Regular rate, Regular Rhythm, Normal S1, Normal S2, No murmurs Abdomen: Soft, Non Tender, Non-Distended, No Hepato-splenomegaly Extremities: No edema, Capillary Refill Less than 3 Seconds Skin: No rashes, No breakdown Musculoskeletal: No Tenderness to Palpation of Joints or Extremities Neurological: aphasic with bilateral tremors in her upper extremities as well as a head tremor Psych/Mental Status: Flat Const Constitutional Narrative: unresponsive HEENT head/scalp atraumatic Resp normal respiratory effort Cardio regular rate, regular rhythm, S1 normal heart sound and S2 normal heart sound GI soft to palpation Neuro Neuro Narrative: unresponsive Assessment & Plan Assessment/Plan (1) Generalized weakness: PLAN: Plan 1. History of brain tumor with postoperative seizures with stroke alert called overnight and concern for prolonged seizure ? 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 She then completed radiation for residual tumor ? Continue with Keppra for seizure disorders ? We attempted to call the neurosurgeon however we did not receive a response ? [facility] neurology recommended lacosamide while also on her Keppra to attempt to control the seizures, it does appear that she is out of her seizure currently as she was trying to talk and was making eye contact and tracking me through the room though she is aphasic ? will need to have a discussion with family on goals of care given her medical history 2. Generalized weakness with failure to thrive and inability to complete ADLs ? So far workup has been negative for an organic cause ? B12, TSH, and vitamin D are all normal ? PT/OT ? Consult case management for disposition ? Awaiting pre-CERT 3. Hyperlipidemia ? Stable ? Continue with Crestor DVT: SCDs Charges/Coding Visit Charges Inpatient E&M: 82646 Subs Hosp L2 NIHSS NIHSS Nursing Documentation NIHSS Nursing Documentation: NIHSS: Ischemic Stroke/TIA Start: 04/08/25 06:57 Freq: [id number] Status: Active Protocol: Activity Type Activity Date Activity User E-sign Co-sign Detail Recorded Client Recorded Date Recorded By Document 04/08/25 07:15 [id number] 04/08/25 08:15 04/08/25 07:15 NIH Stroke Scale [NIHSS] A score of 0 is normal or asymptomatic . Total possible score is 42. Inpatient: RN or Physician to activate a stroke alert for onset of new stroke symptoms or with NIHSS increase >/= 3 points. Following change in neurological status, NIHSS will be performed per physician order or more frequently PRN. -1a. Level of Consciousness 0 - Alert; keenly responsive -1b. LOC Questions 2 - Answers NEITHER question correctly -1c. LOC Commands 2 - Performs NEITHER task correctly -2. Best Gaze 1 - Partial gaze palsy; -3. Visual 2 - Complete hemianopia -4. Facial Palsy 0 - Normal symmetrical movements -5a. Left Arm 0 - No drift; arm holds 90 ( or 45) degrees for full 10 seconds -5b. Right Arm 1 - Drift; arm drifts downward but doesn?t hit the bed -6a. Left Leg 3 - No effort against gravity ; leg falls to bed immediately -6b. Right Leg 3 - No effort against gravity ; leg falls to bed immediately -7. Limb Ataxia 2 - Present in 2 limbs -8. Sensory 0 - Normal; no sensory loss -9. Best Language 2 - Severe aphasia; -10. Dysarthria 2 - Severe dysarthria; -11. Extinction and Inattention 0 - No abnormality -Total 20 Query Text:A score of 0 is normal or asymptomatic. Total possible score is 42 . ED: Notify Physician for NIHSS increase by > / = 3 points. Inpatient: RN or Physician to activate a stroke alert for NIHSS increase of > / = 3 points. Coma Scale [Assess] -Eye Opening Spontaneous -Motor Localizes to Pain -Verbal Inappropriate [Total] -Coma Scale Total 12
--- NOTE | 2025-04-08 10:30 | CASEMGMT ---
Social Work Insurance denied the patient to go to acute inpatient rehab. The physician declined to complete the P2P due to the patients ability to complete 3 hours of therapy a day. LISE Deras
--- NOTE | 2025-04-08 11:27 | WOUNDNOTE ---
Was consulted to assess small open area on coccyx. currently having meeting with physician and family. will try to assess later with next turn or change.
--- NOTE | 2025-04-08 13:16 | CASEMGMT ---
Social Work SW spoke with the daughter Trina, the and another family member. Trina reported they were told the patient was denied for acute inpatient rehab. Trina reported the physician spoke with them about hospice. She reported they are waiting to see test results and if the patient perks up. The family would like the patient to go to SNF if she is able to participate in therapy. SW informed the family SW will follow up tomorrow. LISE Deras
--- NOTE | 2025-04-08 13:25 | NEURO.CONS ---
Assessment and Plan: Neuro Assessment/Plan RESHMA EVANS is a 84 F with a past medical history of mningioma s/o craniotomy, gamma knife radiation, and WBR, being evaluated by Teleneurology for 2 week sudden worsening in mental status, ability to complete ADLs and decrease in eating. On history, this is a progressive subacute decline. Exam is largely nonfocal but concerning for poor arousal but no clear focality and no clear focal changes. Plan: - continue KEppra 1500mg BID, continue Vimpat 100mg BID - decadron 10mg IV once, then 4mg q6 hr - routine EEG - MRI Brain w/wo con - restart primidone I personally attended this patient and spent a total time of 60minutes evaluating this patient including clinical assessment, review of chart, medical history imaging, and determining appropriate treatment and workup. HPI Consult Data Date of Consult: 04/08/25 HPI Narrative HPI Narrative: RESHMA EVANS, is a 84-year-old female with a history of brain tumor (left sphenoid wing meningioma) status postcraniotomy and subsequent radiation that she completed 3 weeks ago complicated by postoperative seizures but she has been stable on Keppra presented to [facility] ED 04/04/2025 for generalized weakness and falls. In the ED patient afebrile, pulse ox 100% with heart rate of 83 and blood pressure 157/96. White count within normal limits, hemoglobin 12.4, BUN 18 and creatinine 0.97, glucose 96 and UA not suggestive of UTI. CT head and chest x-ray no acute process. Given patient's generalized weakness and falls hospitalist contacted for admission for failure to thrive and placement. Patient evaluated family members at bedside. Patient has some swelling around her left eye which reportedly has been there due to the previous brain tumor that was removed and she completed radiation 3 weeks ago as there was still some residual tumor that was unable to be resected. Did have some complications with craniotomy of seizure but has been stable on Keppra since that time. She has tremors especially in her arms but these are not new, reports no focal weakness or focal sensory changes and that her weakness is just generalized, has had poor p.o. intake especially with poor fluid intake and appears dehydrated. Denies any diarrhea or changes in urination, no cough, fevers, headache, sudden changes in vision outside of her baseline since the tumor. No other new acute complaints She had a stroke alert overnight due to shaking and then was thought to be in a seizure so she was continued on her IV Keppra and started on lacosamide by the neurology. By the time I evaluated her this morning she was attempting to talk but she was very aphasic but she was making eye contact and tracking so clearly not in a seizure any longer. Neurologic History Surgeries were done in May and had been on 1500mg Keppra. During and after the operation had seizures so was placed on Keppra and has not had any seizures since then. Was taking two pills twice a day. The last couple weeks she has had a large decline. Was doing well after the surgery and had gamma knife in December and in January started radiation for 6 weeks. She was tired but was doing ok but then she has started with hearing loss. She has also been forgetful of late, she started falling, could not get out of the chair. She has not been complaining about headaches recently. She does not always answer consistently however. 2 weeks prior, suddenly patient was off and could not stand on her own. Confusion was worsening severely - was unable to speak, got confused as to where she was, could not focus. Family brought her in because she needed 2 people to pick her up and was falling. She was pocketing pills in her mouth. She also had a decline in eating and drinking - would just take a really long time for her to eat. No known seizures at home. Last week she started sitting and staring off into space. A scan was done a week ago Monday - they were told there was some swelling, not a lot but did not put her on steroids yet. 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 Baseline has only peripheral vision in the L eye. She has some ptosis in the L eye but up to a month ago could watch TV and play cards. Neurologic Exam Pt was asleep, arouses but does not maintain full wakefulness EOMI horizontally no clear facial asymmetry, symmetric on grimace Localized the RUE, withdraw and spont movement; no clear movement in the LUE but has tone present, not flaccid reacts to noxious stim on the RLE, none on the [facility] Medical History Hypertension Spastic neurogenic bladder Brain tumor, glioma Coccygeal pain, chronic Seizures Dysarthria Constipation Oropharyngeal dysphagia Essential tremor GERD (gastroesophageal reflux disease) Benign positional vertigo Subdural hematoma Obstructive sleep apnea Meningioma Hyperlipidemia HTN (hypertension) Diabetes mellitus, type 2 Home Medications ?Medication ?Instructions ?Recorded ?Last Taken ?Type cholecalciferol (vitamin D3) 25 25 mcg PO DAILY supplement 05/03/24 Unknown History mcg (1,000 unit) capsule gabapentin 100 mg capsule 100 mg PO BID nerve pain 05/03/24 05/03/24 History multivitamin-ferrous 1 tab PO DAILY supplement 05/03/24 Unknown History fumarate-folic acid 18 mg-400 mcg tablet (Centrum Women) acetaminophen 500 mg tablet 1,000 mg (2 x 500 mg) PO Q8 PRN 05/17/24 Unknown Rx pain/fever #1 TAB levetiracetam 750 mg tablet 1,500 mg (2 x 750 mg) PO BID 05/17/24 Unknown Rx (Keppra) seizure #120 tabs solifenacin 10 mg tablet (Vesicare) 10 mg PO QDAY #90 tabs 02/10/25 Unknown Rx rosuvastatin 10 mg tablet 10 mg PO QDAY 02/11/25 Unknown History Allergy/AdvReac Type Severity Reaction Status Date / Time No Known Allergies Allergy Verified 04/04/25 10:16 Family History Sister Cancer Leukemia. Brother Cancer Esophageal cancer Surgical History History of carpal tunnel surgery History of rotator cuff surgery History of repair of congenital cleft palate History of total knee arthroplasty Status post craniotomy Social History household members: significant other housing: other details: 1 story house with 3 steps to enter house thru the garage number of children: 4 Smoking Status: Unknown if ever smoked alcohol intake: never substance use type: does not use Vital Signs Vital Signs Vital Signs: 04/07/25 16:09 04/07/25 16:11 04/07/25 21:50 Temperature 98 F 98.9 F Temperature Source Temporal Temporal Pulse Rate 80 95 Pulse Strength Respiratory Rate 17 16 Respiratory Effort Normal Non-Labored Respiratory Depth Normal Respiratory Pattern Normal Blood Pressure 136/70 H 134/77 H Blood Pressure Mean 92 96 Blood Pressure Source Monitor Monitor Blood Pressure Position Semi-Fowlers Semi-Fowlers Blood Pressure Location Right Arm Right Arm Pulse Ox 96 97 Oxygen Delivery Method Room Air Room Air Room Air 04/07/25 21:50 04/07/25 22:00 04/08/25 05:30 Temperature Temperature Source Pulse Rate Pulse Strength Normal (2+) Respiratory Rate Respiratory Effort Normal Non-Labored Respiratory Depth Respiratory Pattern Blood Pressure Blood Pressure Mean Blood Pressure Source Blood Pressure Position Blood Pressure Location Pulse Ox Oxygen Delivery Method Room Air Room Air 04/08/25 05:31 04/08/25 05:45 04/08/25 06:15 Temperature 101.5 F H Temperature Source Temporal Pulse Rate 95 95 95 Pulse Strength Respiratory Rate 16 16 20 H Respiratory Effort Respiratory Depth Respiratory Pattern Blood Pressure 202/111 H 202/111 H 182/86 H Blood Pressure Mean 141 141 118 Blood Pressure Source Monitor Blood Pressure Position Semi-Fowlers Blood Pressure Location Left Arm Pulse Ox 98 99 96 Oxygen Delivery Method Room Air Room Air Room Air 04/08/25 06:45 04/08/25 09:58 04/08/25 11:00 Temperature 99.1 F 99.1 F Temperature Source Oral Axillary Pulse Rate 100 95 Pulse Strength Respiratory Rate 16 17 Respiratory Effort Normal Non-Labored Respiratory Depth Normal Respiratory Pattern Normal Blood Pressure 154/97 H 159/88 H Blood Pressure Mean 116 111 Blood Pressure Source Monitor Blood Pressure Position Semi-Fowlers Blood Pressure Location Right Arm Pulse Ox 98 97 Oxygen Delivery Method Room Air Room Air Room Air Weight Weight: 83.869 kg Body Mass Index (BMI) 31.7 EEG Results Procedure Details EEG Procedure Details: RESHMA EVANS is a 84 year old F with a past medical history of , who presents for evaluation of Electroencephalogram on DATE at TIME Lab / Micro Data 04/06/25 03:58 04/06/25 03:58 Labs: Laboratory Results - last 24 hr 04/08/25 05:42: POC Glucose 154 H Rhythm Strip Rhythm Strip: Sinus Rhythm Rate: 72 Ectopy: None Imaging Radiology Impression Brain CT 04/08/25 05:51 IMPRESSION: No significant change is noted. No CT evidence of an acute brain abnormality. Reading [id number] Head/Neck CTA 04/08/25 06:02 IMPRESSION: No evidence of acute occlusion or high-grade stenosis. [facility] Active Medications Active Medications Active Medications: Current Medications Generic Name Dose Route Start Last Admin Trade Name Freq PRN Reason Stop Dose Admin Acetaminophen 650 mg 04/04/25 16:56 04/06/25 20:12 Acetaminophen 325 Mg Tablet PO 650 mg Q6H PRN PRN Administration Pain 1-10 Or Fever >100.7 Albuterol Sulfate 2.5 mg 04/04/25 16:56 Albuterol 2.5 Mg/3 Ml Vial.Neb. INHALATION Q2H PRN PRN SOB &/OR WHEEZING Atorvastatin Calcium 20 mg 04/04/25 22:00 04/07/25 21:51 Atorvastatin Calcium 20 Mg Tablet PO 20 mg QHS BRITTNEY Administration Calamine/Phenol 1 applic 04/04/25 22:00 04/07/25 21:51 Menthol/Lanolin/Calamine/Znox 113 Gm Tube TOPICAL 1 applic BID BRITTNEY Administration Protocol Gabapentin 100 mg 04/04/25 22:00 04/08/25 10:10 Gabapentin 100 Mg Capsule PO Not Given BID BRITTNEY Sodium Chloride 250 mls @ 15 mls/hr 04/04/25 17:09 IV .[id number] PRN Saline Flush Sodium Chloride 250 mls @ 15 mls/hr 04/04/25 17:09 IV .[id number] PRN Additional IVPB Infusion Lacosamide 100 mg/ Sodium 60 mls @ 100 mls/hr 04/08/25 22:00 Chloride IV Q12 BRITTNEY Levetiracetam 1,500 mg 04/04/25 22:00 04/08/25 10:10 Levetiracetam 750 Mg Tablet PO Not Given BID BRITTNEY Melatonin 10 mg 04/04/25 16:56 Melatonin 10 Mg Tablet PO QHS PRN PRN INSOMNIA Ondansetron HCl 4 mg 04/04/25 16:56 Ondansetron 4 Mg/2 Ml Vial IV Q8H PRN PRN NAUSEA/VOMITING Senna/Docusate Sodium 2 tablet 04/04/25 16:56 Senna/Docusate Sodium 1 Tablet PO BID PRN PRN Constipation Sodium Chloride 10 - 40 ml 04/04/25 17:09 04/08/25 07:13 0.9% Saline Lock 10 Ml Syringe IV 10 ml UD PRN Administration SALINE FLUSH NIHSS NIHSS Nursing Documentation NIHSS Nursing Documentation: NIHSS: Ischemic Stroke/TIA Start: 04/08/25 06:57 Freq: [id number] Status: Active Protocol: Activity Type Activity Date Activity User E-sign Co-sign Detail Recorded Client Recorded Date Recorded By Document 04/08/25 11:00 [id number] 04/08/25 11:13 04/08/25 11:00 NIH Stroke Scale [NIHSS] A score of 0 is normal or asymptomatic . Total possible score is 42. Inpatient: RN or Physician to activate a stroke alert for onset of new stroke symptoms or with NIHSS increase >/= 3 points. Following change in neurological status, NIHSS will be performed per physician order or more frequently PRN. -1a. Level of Consciousness 0 - Alert; keenly responsive -1b. LOC Questions 2 - Answers NEITHER question correctly -1c. LOC Commands 2 - Performs NEITHER task correctly -2. Best Gaze 1 - Partial gaze palsy; -3. Visual 2 - Complete hemianopia -4. Facial Palsy 0 - Normal symmetrical movements -5a. Left Arm 0 - No drift; arm holds 90 ( or 45) degrees for full 10 seconds -5b. Right Arm 0 - No drift; arm holds 90 ( or 45) degrees for full 10 seconds -6a. Left Leg 3 - No effort against gravity ; leg falls to bed immediately -6b. Right Leg 3 - No effort against gravity ; leg falls to bed immediately -7. Limb Ataxia 2 - Present in 2 limbs -8. Sensory 0 - Normal; no sensory loss -9. Best Language 2 - Severe aphasia; -10. Dysarthria 2 - Severe dysarthria; -11. Extinction and Inattention 0 - No abnormality -Total 19 Query Text:A score of 0 is normal or asymptomatic. Total possible score is 42 . ED: Notify Physician for NIHSS increase by > / = 3 points. Inpatient: RN or Physician to activate a stroke alert for NIHSS increase of > / = 3 points.
--- NOTE | 2025-04-08 13:28 | CASEMGMT ---
Social Work SW spoke with the daughter Trina, the and another family member. Trina reported they were told the patient was denied for acute inpatient rehab. Trina reported the physician spoke with them about hospice. She reported they are waiting to see test results and if the patient perks up. The family would like the patient to go to SNF if she is able to participate in therapy. SW informed them that insurance will not pay for a SNF if she is not able to participate in therapy. SW informed the family SW will follow up tomorrow. LISE Deras
--- NOTE | 2025-04-08 14:08 | CON.PCM.PA_ITS ---
[facility] Medical History Hypertension Spastic neurogenic bladder Brain tumor, glioma Coccygeal pain, chronic Seizures Dysarthria Constipation Oropharyngeal dysphagia Essential tremor GERD (gastroesophageal reflux disease) Benign positional vertigo Subdural hematoma Obstructive sleep apnea Meningioma Hyperlipidemia HTN (hypertension) Diabetes mellitus, type 2 Home Medications ?Medication ?Instructions ?Recorded ?Last Taken ?Type cholecalciferol (vitamin D3) 25 25 mcg PO DAILY supple ment 05/03/24 Unknown History mcg (1,000 unit) capsule gabapentin 100 mg capsule 100 mg PO BID nerve pain 05/03/24 History multivitamin-ferrous 1 tab PO DAILY supplement Unknown History fumarate-folic acid 18 mg-400 mcg tablet (Centrum Women) acetaminophen 500 mg tablet 1,000 mg (2 x 500 mg) PO Q 8 PRN 05/17/24 Unknown Rx pain/fever #1 TAB levetiracetam 750 mg tablet 1,500 mg (2 x 750 mg) PO B ID 05/17/24 Unknown Rx (Keppra) seizure #120 tabs solifenacin 10 mg tablet (Vesicare) 10 mg PO QDAY #90 tabs 02/10/25 Unknown Rx rosuvastatin 10 mg tablet 10 mg PO QDAY 02/11/25 Unkno wn History Allergy/AdvReac Type Severity Reaction Status Date / Time No Known Allergies Allergy Verified 04/04/25 10:16 Family History Sister Cancer Leukemia. Brother Cancer Esophageal cancer Surgical History History of carpal tunnel surgery History of rotator cuff surgery History of repair of congenital cleft palate History of total knee arthroplasty Status post craniotomy Social History household members: significant other housing: other details: 1 story house with 3 steps to enter house thru the garage number of children: 4 Smoking Status: Unknown if ever smoked alcohol intake: never substance use type: does not use ROS ROS Narrative Patient is currently unable to participate in review of systems as she is only opening her eyes and not communicating. Review of Systems ROS Unobtainable: due to mental condition and due to mental status Physical Exam Const Constitutional Narrative: Patient is not alert or oriented. She opens her eyes briefly to her name but then closes her eyes immediately no verbal communication. Orientation / Consciousness: lethargic HEENT normocephalic Eyes Pupil: sluggish Resp normal respiratory effort Cardio regular rhythm GI normal to inspection, nondistended, normoactive bowel sounds Auscultation: hypoactive bowel sounds Extremity normal capillary refill Skin no rashes or lesions noted Neuro Gait (Neuro): unable to assess gait Psych Psych Narrative: Unable to assess Charges/Coding Palliative Care Palliative Care: 48592 New Pt Consult 80+ min HPI Current admission Current Code Status: DNRCC-A with intubation Associated Diagnosis: FFT, generalized weakness Consult Data Date of Consult: 04/08/25 Location of consult: PCU Reason for referral: goals of care Referral source: PCU Palliative care diagnosis (Summary list): FFT Palliative care services/treatment (Accepted, as consult): accepted Case discussed with referring provider: goals HPI Narrative HPI Narrative: PAIN ASSESSMENT Location: [Unable to assess the patient does not appear to be in pain.] Quality: [ ] Severity/Quantity: [ ] Timing/Frequency: [ ] Context: [ ] Factors that make it better/worse: [ ] Associated signs & symptoms: [ ] Prior to meeting with the patient at bedside I reviewed labs, documentation and radiological studies. I also reviewed documentation from neurology and previous admissions. I then met with the patient's daughter, Trina, Rohan and son-in-law Chris. Introduced myself and the concept of palliative care in which they voluntarily excepted our services. I did meet with them in the lobby as they were preparing to leave for the day. He stated that the daughterZuleima is the POA but that they all work as a team for decisions. Rohan had many questions about testing and is expressing some frustrations that we cannot just fix her. We did have an extensive discussion about what her goals of care would be if she were able to communicate with the family and her . Trina made it very clear that Reshma did not want to just lay in a bed waiting to , like her sister. Trina did state that they know they will be making decision for their mother. Rohan has been with his for 64 years and is not concerned about her quality of life, at this time. He just wants her to live. Family is very realistic in their goals and expectations. They are hoping to receive information tomorrow about MRI results and EEG. They hope to then meet with neurology to discuss treatment options going forward or whether or not they feel hospice is more appropriate. Recommendations going forward I did recommend that at the very least they receive palliative care outpatient services. The family is very familiar with palliative care outpatient services as the son-in-law, Chris is already on palliative care services for his cancer. They are in agreement that they would need outpatient palliative care. They are familiar with the [facility] palliative care program but are open to others and would like for information. I then discussed the patient's CODE STATUS in which it is DNR CC?a with intubation I did ask for clarification if that is what the CODE STATUS should be. They stated that they would like to talk as a family to confirm that was the desired CODE STATUS. All questions the family had were answered. Palliative care will continue to follow for goals of care conversations as clinical picture evolves. Patient is currently n.p.o. and not eating or drinking. I did meet with Reshma at bedside. I did note her to have significant periorbital edema to the left eye. When I called her name she did open her eyes briefly and then close them once again. She did not interact with me at all and was not able to answer questions. I was able to complete physical assessment. Per hospitalist and neurologist: RESHMA EVANS, is a 84-year-old female with a history of brain tumor (left sphenoid wing meningioma) status postcraniotomy and subsequent radiation that she completed 3 weeks ago complicated by postoperative seizures but she has been stable on Keppra presented to [facility] ED 04/04/2025 for generalized weakness and falls. In the ED patient afebrile, pulse ox 100% with heart rate of 83 and blood pressure 157/96. White count within normal limits, hemoglobin 12.4, BUN 18 and creatinine 0.97, glucose 96 and UA not suggestive of UTI. CT head and chest x-ray no acute process. Given patient's generalized weakness and falls hospitalist contacted for admission for failure to thrive and placement. Patient evaluated family members at bedside. Patient has some swelling around her left eye which reportedly has been there due to the previous brain tumor that was removed and she completed radiation 3 weeks ago as there was still some residual tumor that was unable to be resected. Did have some complications with craniotomy of seizure but has been stable on Keppra since that time. She has tremors especially in her arms but these are not new, reports no focal weakness or focal sensory changes and that her weakness is just generalized, has had poor p.o. intake especially with poor fluid intake and appears dehydrated. Denies any diarrhea or changes in urination, no cough, fevers, headache, sudden changes in vision outside of her baseline since the tumor. No other new acute complaints She had a stroke alert overnight due to shaking and then was thought to be in a seizure so she was continued on her IV Keppra and started on lacosamide by the neurology. By the time I evaluated her this morning she was attempting to talk but she was very aphasic but she was making eye contact and tracking so clearly not in a seizure any longer. Neurologic History Surgeries were done in May and had been on 1500mg Keppra. During and after the operation had seizures so was placed on Keppra and has not had any seizures since then. Was taking two pills twice a day. The last couple weeks she has had a large decline. Was doing well after the surgery and had gamma knife in December and in January started radiation for 6 weeks. She was tired but was doing ok but then she has started with hearing loss. She has also been forgetful of late, she started falling, could not get out of the chair. She has not been complaining about headaches recently. She does not always answer consistently however. 2 weeks prior, suddenly patient was off and could not stand on her own. Confusion was worsening severely - was unable to speak, got confused as to where she was, could not focus. Family brought her in because she needed 2 people to pick her up and was falling. She was pocketing pills in her mouth. She also had a decline in eating and drinking - would just take a really long time for her to eat. No known seizures at home. Last week she started sitting and staring off into space. A scan was done a week ago Monday - they were told there was some swelling, not a lot but did not put her on steroids yet. 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 Baseline has only peripheral vision in the L eye. She has some ptosis in the L eye but up to a month ago could watch TV and play cards. Palliative Assessment Advanced Directive - Current Admission Advance Directive: Advance Directive ON ADMISSION - REFERENCE 3 Do you have a Healthcare No 04/04/25 16:51 Living Will? Do you have a Healthcare Power No 04/04/25 16:51 of Lamp Cleaner? Do You Want Additional Declined 04/04/25 16:51 Information on Advanced Directives or Healthcare Proxy/DPOA comments: Zuleima-daughter Psychosocial/Spiritual Information Living situation/Marital status: lives with her Rohan. 3 children within 2 miles Geographic location: [place] Supports: family Voodoo/Maggie or spiritual preference: Pentecostal - [employer] Spiritual distress: Unable to assess. 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 Symptoms Palliative performance scale: 20 Palliative prognostic index: 10.5, (if the PPI is greater than 6.0, survival is less than 3 weeks) Dyspnea symptoms: Mild Depression symptoms: None Anorexia symptoms: Severe Cough symptoms: None Fatigue symptoms: Severe Weakness symptoms: Severe Confusion symptoms: Severe Objective Data Objective Data Vital Signs: Vital Signs Temp Pulse Resp BP Pulse Ox O2 Del Method 99.1 F 95 17 159/88 H 97 Room Air 04/08/25 11:00 04/08/25 11:00 04/08/25 11:00 04/08/25 11:00 04/08/25 11:00 04/08/25 11:00 Oxygen Delivery Method Room Air Weight: 184 lb 14.4 oz Body Mass Index (BMI) 31.7 Intake & Output: Intake and Output for Last 24 Hours 04/06/25 04/07/25 04/08/25 23:59 23:59 23:59 Intake Total 750 / 750 200 / 200 70 / 70 Output Total 800 / 800 300 / 300 Balance -50 / -50 -100 / -100 70 / 70 Lab / Micro Data Attestation: I reviewed the patient's lab results. 04/06/25 03:58 04/06/25 03:58 Labs: Laboratory Results - last 24 hr 04/08/25 05:42: POC Glucose 154 H Radiography Diagnostic Testing: Radiology Impression Brain CT 04/08/25 05:51 IMPRESSION: No significant change is noted. No CT evidence of an acute brain abnormality. Reading Location: [place] [address] Head/Neck CTA 04/08/25 06:02 IMPRESSION: No evidence of acute occlusion or high-grade stenosis. Reading Location: [place] [address] Rhythm Strip Rhythm Strip: Sinus Rhythm Rate: 72 Ectopy: None Impressions & Recommendations Patient & Family Issues discussed with the patient and family: Goals of care Patient goal: unable to participate Family goal: Awaiting results of MRI and EEG prior to making any final decisions. Ethical & Legal Ethical and legal: is not legal POA. Patient's daughter, Zuleima is legal POA. Impressions Impressions: Patient's is having a very difficult time dealing with his 's illness. Patient's children are POA's. Recommentation Palliative recommendations: Patient would be a candidate for hospice if family decides to transition her in that direction. Otherwise I recommend that the patient receive palliative care outpatient services. Encouter Achieved as a result of this Palliative Care Encounter: [ [id number], [id number]] minutes were spent in total for this visit which consisted, primarily of counseling and education dealing with the complex and emotionally intense issues of symptom management and palliative care in the setting of serious and potentially life-threatening illness. Review of documentation, labs and radiological studies. ?Patient/family had the opportunity to ask questions Plan (1) Acute alteration in mental status: PLAN: Medical management per primary team (2) Generalized weakness: PLAN: Recommend PT/OT evaluation and treatment (3) Cognitive dysfunction: PLAN: Medical management per primary team (4) Seizures: PLAN: Medical management per primary team (5) Goals of care, counseling/discussion: PLAN: *Discussion with family about goals of care going forward and patient wishes. *Discussion about CODE STATUS and clarification if patient would want intubation. Family is going to meet for decisions. (6) Palliative care encounter: PLAN: *Recommendation of hospice or palliative care pending family decision.
--- NOTE | 2025-04-08 15:55 | CHAPLAIN ---
Type of Pastoral Visit ___ Initial Visit ___ Follow-up Visit ___ On-call Visit ___ General Patient Visit ___ Spiritual Assessment ___ Family Conference ___ Bereavement ___ Rapid Response ___ Code Blue ___ Other (describe below) Pastoral Care Referral From ___ Patient ___ Family ___ Nurse ___ Physician ___ Compressor Station Engineer ___ Disulfurizer Tender ___ Other (describe below) Sacrament/Intervention ___ Active listening ___ Anointing ___ Oriental Orthodox ___ Bereavement ___ Communion ___ Maggie exploration ___ ___ Life review ___ Prayer ___ Reconciliation ___ Sacrament of Sick ___ Supportive presence ___ Wedding ___ Other (describe below) Pastoral Comments on first attempt RN and family members were in room and attending to patient; on second attempt the patient was soundly asleep and did not awaken to her name; left a calling card
--- NOTE | 2025-04-08 16:10 | MRI_ITS ---
PROCEDURE: MRI BRAIN W/WO CONTRAST 04/08/2025 REASON FOR EXAM: SEIZURE VS CVA, H/O CRANIOTOMY Reported history of left sphenoid wing meningioma status post craniotomy and resection followed by radiation treatment recently completed. TECHNIQUE: Procedure Code: [id number] Modality: MR Procedure: BRAIN W/WO CONTRAST Multiplanar and multisequential MRI of the brain was performed without and with IV gadolinium based contrast administration. CONTRAST: Clariscan VOLUME: 16 mL COMPARISON: CT head exams same day 04/08/2025, 04/04/2025. FINDINGS: No regions of abnormal parenchymal restricted diffusion to indicate recent infarct. Postoperative/treatment related changes along the left frontal and anterior temporal convexities status post left frontotemporal craniotomy, and reported resection of a left sphenoid wing meningioma with subsequent radiation therapy. There is dural thickening and enhancement along the left frontal and anterior temporal convexity, which may be postoperative reactive change versus residual enhancing tumor. Confluent vasogenic edema versus gliotic changes in the subjacent anterior left frontal and anterior temporal lobes, which is mildly expansile with partial effacement of the anterior and temporal horns of the left lateral ventricle, most likely radiation treatment related change. Trace rightward midline shift. Mild chronic microangiopathic changes elsewhere in the supratentorial white matter. Major intracranial vascular flow voids appear preserved. No evidence for acute intracranial hemorrhage. Prominent left proptosis, similar to prior exams and of unclear etiology. Absent pauma ocular lenses. 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 Subtotal opacification of the left frontal and sphenoid sinuses and left ethmoid air cells. Nonspecific partial left mastoid effusion. MRI/Brain W/WO Contrast IMPRESSION: No evidence of acute infarct. Presumed postoperative/radiation treatment related changes to the left frontal and anterior temporal convexities, with dural thickening and enhancement, and confluent parenchymal gliosis versus vasogenic edema. 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 Reading Location: [id number]
[2025-04-08] MEDS: Lacosamide 100 MG in 0.9% Normal Saline (50mL Bag) 50 ML IV (21:57)
[2025-04-09 00:25] VITALS: BMI 31.7
[2025-04-09 04:05] VITALS: BP 147/94; PULSE 84; RESP 18; TEMP 36.1; O2SAT 94
[2025-04-09] MEDS: 0.9% Normal Saline (250mL Bag) 250 ML 15 ML IV (06:08)
[2025-04-09 06:15] LABS: Hematocrit 38.6 % (37-47); Hemoglobin 12.8 g/dL (12.0-15.0); Immature Granulocytes Count 0.020 X10^3/uL (0.0-0.0); Mean Corp Hgb Conc 33.2 g/dL (32-36); Mean Corpuscular Volume 90.8 fL (81-99); Mean Platelet Vol. 9.5 fl (6.2-12.0); NRBC Flagged by Analyzer 0 % (0-5); POSITIVE DIFFERENTIAL YES; Platelet Count 247 K/mm3 (150-450); RBC Distribution Width CV 13.3 % (11.6-14.6); RBC Distribution Width SD 44.6 fl (35.1-43.9); Red Blood Count 4.25 M/mm3 (4.2-5.4); White Blood Count 6.4 K/mm3 (4.4-11.0)
[2025-04-09 06:58] LABS: Anion Gap 12 (5-15); BUN 20 mg/dL (4-19); BUN/Creat Ratio 26.8 RATIO (10-20); Calcium,Total 9.5 mg/dL (7.6-11.0); Carbon Dioxide 22.7 mmol/L (21.0-32.0); Chloride 104 mmol/L (98-108); Estimated Creatinine Clearance 52.89 ml/min (50-250); Glucose 171 mg/dL (70-99); Potassium 4.4 mmol/L (3.3-5.1)
[2025-04-09 10:42] VITALS: BP 147/99; PULSE 77; RESP 17; TEMP 36.5; O2SAT 96
--- NOTE | 2025-04-09 10:48 | PCM.PN.HOSP ---
Reason for Visit Chief Complaint: Generalized weakness Subjective Subjective Patient is an 84-year-old lady who underwent left frontal craniotomy on 04/26/2024 at [facility] On account of recurrent meningioma. Postoperative. Complicated by seizures for which patient was started on Keppra. Patient was brought to the emergency department with progressive generalized weakness and falls. Patient hospital stay complicated by encephalopathy which was thought to be secondary to a prolonged seizure Objective Data Objective Data Vital Signs: Vital Signs Temp Pulse Resp BP Pulse Ox O2 Del Method 97.7 F L 77 17 147/99 H 96 Room Air 04/09/25 10:42 04/09/25 10:42 04/09/25 10:42 04/09/25 10:42 04/09/25 10:42 04/09/25 10:42 Oxygen Delivery Method Room Air Weight: 83.869 kg Body Mass Index (BMI) 31.7 Intake & Output: Intake and Output for Last 24 Hours 04/07/25 04/08/25 04/09/25 23:59 23:59 23:59 Intake Total 200 / 200 130 / 130 Output Total 300 / 300 350 / 350 Balance -100 / -100 130 / -70 -350 / -350 Lab / Micro Data 04/09/25 05:35 04/09/25 05:35 Labs: Laboratory Results - last 24 hr 04/09/25 05:35: WBC 6.4, RBC 4.25, Hgb 12.8, Hct 38.6, MCV 90.8, MCH 30.1, MCHC 33.2, RDW Std Deviation 44.6 H, RDW Coeff of Tung 13.3, Plt Count 247, MPV 9.5, Immature Gran % (Auto) 0.300, Neut % (Auto) 90.1 H, Lymph % (Auto) 7.4 L, Ransom % (Auto) 2.0, Eos % (Auto) 0.0, Baso % (Auto) 0.2, Absolute Neuts (auto) 5.7, Absolute Lymphs (auto) 0.47 L, Nucleated RBC % 0, Sodium 139, Potassium 4.4, Chloride 104, Carbon Dioxide 22.7, Anion Gap 12, BUN 20 H, Creatinine 0.75, Estim Creat Clear Calc 52.89, Est GFR (MDRD) Non-Af 77, BUN/Creatinine Ratio 26.8 H, Glucose 171 H, Calcium 9.5 Radiography Diagnostic Testing: Radiology Impression Brain MRI 04/08/25 16:10 IMPRESSION: No evidence of acute infarct. Presumed postoperative/radiation treatment related changes to the left frontal and anterior temporal convexities, with dural thickening and enhancement, and confluent parenchymal gliosis versus vasogenic edema. 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 Reading Location: [facility] Rhythm Strip Rhythm Strip: Sinus Rhythm Rate: 72 Ectopy: None Physical Exam Narrative GENERAL: cooperative has tremors at rest HEENT: Atraumatic; normocephalic EYES; Anicteric, Normal Conjunctiva NECK; supple, normal thyroid, RESPIRATORY: Diminished to auscultation CARDIOVASCULAR: Regular S1 S2, GI: soft, normoactive bowel sounds, : No Renal angle tenderness; EXTREMITIES: No edema, no clubbing, MUSCULOSKELETAL: no muscle wasting NEURO: Awake; no lateralizing signs. SKIN: No Rash PSYCH; Flat affect Assessment & Plan Assessment/Plan (1) Generalized weakness: PLAN: Plan Patient is an 84-year-old lady who underwent left frontal craniotomy on 04/26/2024 at [facility] On account of recurrent meningioma. Postoperative. Complicated by seizures for which patient was started on Keppra. Patient was brought to the emergency department with progressive generalized weakness and falls. Patient hospital stay complicated by encephalopathy which was thought to be secondary to a prolonged seizure 1. Seizure disorder With suspected breakthrough seizure. MRI obtained did show No evidence of acute infarct. Presumed postoperative/radiation treatment related changes to the left frontal and anterior temporal convexities, with dural thickening and enhancement, and confluent parenchymal gliosis versus vasogenic edema. 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 [facility] in addition to patient's Keppra 2 .History of brain tumor ? (left sphenoid wing meningioma) status post craniotomy and subsequent radiation (completed 3 weeks prior to her admission) complicated by postoperative seizures. Patient's family apparently had discussion with hospice to discuss goals of care moving forward. Family yet to make a decision 3. Dyslipidemia ?Patient is on statin therapy, continued at home dose 4. Physical deconditioning ? Requested for PT OT eval and social science teacher to assist with discharge planning 5. DVT prophylaxis ? Bilateral SCDs Time spent in the patient's overall evaluation,decision-making process, review of diagnostic data, adjustment of management, discussion with other providers, nursing nursing and ancillary staff involved in patient's care documentation, 40 Minutes Charges/Coding Visit Charges Inpatient E&M: 42843 Subs Hosp L2 NIHSS NIHSS Nursing Documentation NIHSS Nursing Documentation: NIHSS: Ischemic Stroke/TIA Start: 04/08/25 06:57 Freq: [id number] Status: Complete Protocol: Activity Type Activity Date Activity User E-sign Co-sign Detail Recorded Client Recorded Date Recorded By Document 04/08/25 15:00 [id number] 04/08/25 15:34 04/08/25 15:00 NIH Stroke Scale [NIHSS] A score of 0 is normal or asymptomatic . Total possible score is 42. Inpatient: RN or Physician to activate a stroke alert for onset of new stroke symptoms or with NIHSS increase >/= 3 points. Following change in neurological status, NIHSS will be performed per physician order or more frequently PRN. -1a. Level of Consciousness 0 - Alert; keenly responsive -1b. LOC Questions 2 - Answers NEITHER question correctly -1c. LOC Commands 2 - Performs NEITHER task correctly -2. Best Gaze 1 - Partial gaze palsy; -3. Visual 2 - Complete hemianopia -4. Facial Palsy 0 - Normal symmetrical movements -5a. Left Arm 0 - No drift; arm holds 90 ( or 45) degrees for full 10 seconds -5b. Right Arm 1 - Drift; arm drifts downward but doesn?t hit the bed -6a. Left Leg 3 - No effort against gravity ; leg falls to bed immediately -6b. Right Leg 3 - No effort against gravity ; leg falls to bed immediately -7. Limb Ataxia 2 - Present in 2 limbs -8. Sensory 0 - Normal; no sensory loss -9. Best Language 2 - Severe aphasia; -10. Dysarthria 2 - Severe dysarthria; -11. Extinction and Inattention 0 - No abnormality -Total 20 Query Text:A score of 0 is normal or asymptomatic. Total possible score is 42 . ED: Notify Physician for NIHSS increase by > / = 3 points. Inpatient: RN or Physician to activate a stroke alert for NIHSS increase of > / = 3 points.
--- NOTE | 2025-04-09 10:56 | CASEMGMT ---
Social Work SW spoke with Trina Perez's significant other. Chris reported they will be at the hospital about 1230pm today. SW informed Chris THONG will come to the patients room around 100pm to speak with the family. LISE Deras
[2025-04-09] MEDS: Lacosamide 100 MG in 0.9% Normal Saline (50mL Bag) 50 ML IV ×2 (11:43→22:38)
[2025-04-09] MEDS: 0.9% Saline Lock 10 ML Syringe IV ×4 (13:10→20:45)
--- NOTE | 2025-04-09 13:48 | CASEMGMT ---
Discharge Planning A list of SNF providers including quality and resource use data and consistent with the patient's preferred geographic region, medical needs, and insurance network was created in [employer] Guide.? This list was provided to the SW. Deborah Lopez Discharge Planning Asst.
--- NOTE | 2025-04-09 14:16 | CASEMGMT ---
Social Work SW spoke with patients family- daughter, son and . The daughter Trina reported they wants [facility] palliative care. SW spoke with about choosing a SNF for the patient. SW provide a list of?SNF?providers including quality and resource use data and consistent with the patient's preferred geographic region, medical needs, and insurance network was created in [facility] Guide to the family. Trina stated they want a SNF in [facility]. SW asked the family to make a choice this afternoon so the referral can be submitted. SW faxed the palliative care referral to [facility]. Plan: SW will follow up with the family to get their SNF choices. LISE Thompson
--- NOTE | 2025-04-09 14:25 | PN.PALL_ITS ---
Subjective Subjective 04/09/25: Prior to meeting with the patient at bedside I did review labs and radiological studies as well as documentation in the last 24 hours. After reviewing the MRI results and noted that the patient does show some vasogenic edema possibly related to surgical intervention. I then met with the family at bedside. During my initial encounter with them they were finishing up their appointment with video neurology. Patient is much more interactive today she is awake and alert to person and able to provide me with her date of . She was able to identify the people in the room but she was unable to tell me the year or where she was. She continues to have periorbital edema to the left eye with ecchymosis. Patient's family is more optimistic that patient can recover following their visit with neurology. They do want her to go to SNF rehab to get stronger. They stated that they would like to have palliative care consults to the [facility] as they are familiar with their services. I did reach out to social work to let them know family decision into place referral. I did explain to 1 family member what palliative care is. All questions were answered. Palliative care will continue to follow remotely as goals of care have been established. 04/08/25: Prior to meeting with the patient at bedside I reviewed labs, documentation and radiological studies. I also reviewed documentation from neurology and previous admissions. I then met with the patient's daughter, Trina, Rohan and son-in-law Chris. Introduced myself and the concept of palliative care in which they voluntarily excepted our services. I did meet with them in the lobby as they were preparing to leave for the day. He stated that the daughterZuleima is the POA but that they all work as a team for decisions. Rohan had many questions about testing and is expressing some frustrations that we cannot just fix her. We did have an extensive discussion about what her goals of care would be if she were able to communicate with the family and her . Trina made it very clear that Reshma did not want to just lay in a bed waiting to , like her sister. Trina did state that they know they will be making decision for their mother. Rohan has been with his for 64 years and is not concerned about her quality of life, at this time. He just wants her to live. Family is very realistic in their goals and expectations. They are hoping to receive information tomorrow about MRI results and EEG. They hope to then meet with neurology to discuss treatment options going forward or whether or not they feel hospice is more appropriate. Recommendations going forward I did recommend that at the very least they receive palliative care outpatient services. The family is very familiar with palliative care outpatient services as the son-in-law, Chris is already on palliative care services for his cancer. They are in agreement that they would need outpatient palliative care. They are familiar with the [facility] palliative care program but are open to others and would like for information. I then discussed the patient's CODE STATUS in which it is DNR CC?a with intubation I did ask for clarification if that is what the CODE STATUS should be. They stated that they would like to talk as a family to confirm that was the desired CODE STATUS. All questions the family had were answered. Palliative care will continue to follow for goals of care conversations as clinical picture evolves. Patient is currently n.p.o. and not eating or drinking. I did meet with Reshma at bedside. I did note her to have significant periorbital edema to the left eye. When I called her name she did open her eyes briefly and then close them once again. She did not interact with me at all and was not able to answer questions. I was able to complete physical assessment. 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 ED 04/04/2025 for generalized weakness and falls. In the ED patient afebrile, pulse ox 100% with heart rate of 83 and blood pressure 157/96. White count within normal limits, hemoglobin 12.4, BUN 18 and creatinine 0.97, glucose 96 and UA not suggestive of UTI. CT head and chest x-ray no acute process. Given patient's generalized weakness and falls hospitalist contacted for admission for failure to thrive and placement. Patient evaluated family members at bedside. Patient has some swelling around her left eye which reportedly has been there due to the previous brain tumor that was removed and she completed radiation 3 weeks ago as there was still some residual tumor that was unable to be resected. Did have some complications with craniotomy of seizure but has been stable on Keppra since that time. She has tremors especially in her arms but these are not new, reports no focal weakness or focal sensory changes and that her weakness is just generalized, has had poor p.o. intake especially with poor fluid intake and appears dehydrated. Denies any diarrhea or changes in urination, no cough, fevers, headache, sudden changes in vision outside of her baseline since the tumor. No other new acute complaints She had a stroke alert overnight due to shaking and then was thought to be in a seizure so she was continued on her IV Keppra and started on lacosamide by the neurology. By the time I evaluated her this morning she was attempting to talk but she was very aphasic but she was making eye contact and tracking so clearly not in a seizure any longer. Objective Data Objective Data Vital Signs: Vital Signs Temp Pulse Resp BP Pulse Ox O2 Del Method 97.7 F L 77 17 147/99 H 96 Room Air 04/09/25 10:42 04/09/25 10:42 04/09/25 10:42 04/09/25 10:42 04/09/25 10:42 04/09/25 10:42 Oxygen Delivery Method Room Air Weight: 184 lb 14.4 oz Body Mass Index (BMI) 31.7 Intake & Output: Intake and Output for Last 24 Hours 04/07/25 04/08/25 04/09/25 23:59 23:59 23:59 Intake Total 200 / 200 130 / 130 143.75 / 143.75 Output Total 300 / 300 350 / 350 Balance -100 / -100 130 / -70 -206.25 / -206.25 Lab / Micro Data Attestation: I reviewed the patient's lab results. 04/09/25 05:35 04/09/25 05:35 Labs: Laboratory Results - last 24 hr 04/09/25 05:35: WBC 6.4, RBC 4.25, Hgb 12.8, Hct 38.6, MCV 90.8, MCH 30.1, MCHC 33.2, RDW Std Deviation 44.6 H, RDW Coeff of Tung 13.3, Plt Count 247, MPV 9.5, Immature Gran % (Auto) 0.300, Neut % (Auto) 90.1 H, Lymph % (Auto) 7.4 L, Millard % (Auto) 2.0, Eos % (Auto) 0.0, Baso % (Auto) 0.2, Absolute Neuts (auto) 5.7, A bsolute Lymphs (auto) 0.47 L, Nucleated RBC % 0, Sodium 139, Potassium 4.4, Chloride 104, Carbon Dioxide 22.7, Anion Gap 12, BUN 20 H, Creatinine 0.75, Estim Creat Clear Calc 52.89, Est GFR (MDRD) Non-Af 77, BUN/Creatinine Ratio 26.8 H, Glucose 171 H, Calcium 9.5 Radiography Diagnostic Testing: Radiology Impression Brain MRI 04/08/25 16:10 IMPRESSION: No evidence of acute infarct. Presumed postoperative/radiation treatment related changes to the left frontal and anterior temporal convexities, with dural thickening and enhancement, and confluent parenchymal gliosis versus vasogenic edema. 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 Reading Location: [facility] Rhythm Strip Rhythm Strip: Sinus Rhythm Rate: 72 Ectopy: None Physical Exam Const alert Constitutional Narrative: Oriented to person only General Appearance: cooperative Orientation / Consciousness: awake and oriented to person HEENT normocephalic Eyes General Eye: other Other Details: Periorbital edema and ecchymosis to the left eye Pupil: sluggish Neck full ROM Lymph Lymphatic: lymphedema Resp normal respiratory effort Auscultation: diminished lung sounds Cardio regular rate and regular rhythm GI normal to inspection, nondistended, normoactive bowel sounds Auscultation: hypoactive bowel sounds Extremity normal capillary refill Extremity Narrative: Bilateral pedal edema Skin no rashes or lesions noted General Skin Exam: venous stasis Neuro Sensorium / Orientation: awake, alert and oriented to person Speech: speech abnormal Details: Positive for garbled (Dysarthric) Gait (Neuro): unable to assess gait Psych Psych Narrative: Difficulty to assess this patient is only oriented x 1 Charges/Coding Palliative Care Palliative Care: [id number] Follow up 50+ min Consulation Summary Current admission Current Code Status: DNR CC?a with intubation Associated Diagnosis: Failure to thrive, altered mental status, generalized weakness, seizure activity Consult Data Date of Consult: 04/08/25 Location of consult: PCU Reason for referral: goals of care Referral source: PCU Palliative care diagnosis (Summary list): FFT Palliative care services/treatment (Accepted, as consult): accepted Case discussed with referring provider: Dr. Jimenez Palliative Assessment Advanced Directive - Current Admission Advance Directive: Advance Directive ON ADMISSION - REFERENCE 3 Do you have a Healthcare No 04/04/25 16:51 Living Will? Do you have a Healthcare Power No 04/04/25 16:51 of Communications Scientist? Do You Want Additional Declined 04/04/25 16:51 Information on Advanced Directives or Healthcare Proxy/DPOA comments: Patient's daughter Symptoms Dyspnea symptoms: Mild Depression symptoms: Mild Anorexia symptoms: Severe Fatigue symptoms: Moderate Weakness symptoms: Severe Confusion symptoms: Moderate Impression & Recommendations Recommentation Palliative recommendations: Patient would be a candidate for hospice if family decides to transition her in that direction. Otherwise I recommend that the patient receive palliative care outpatient services. Encouter Achieved as a result of this Palliative Care Encounter: [ [id number], [id number], [id number]] minutes were spent in total for this visit which consisted, primarily of counseling and education dealing with the complex and emotionally intense issues of symptom management and palliative care in the setting of serious and potentially life-threatening illness. Review of documentation, labs and radiological studies. ?Patient/family had the opportunity to ask questions Plan (1) Acute alteration in mental status: PLAN: Medical management per primary team (2) Generalized weakness: PLAN: Recommend PT/OT evaluation and treatment (3) Cognitive dysfunction: PLAN: Medical management per primary team (4) Seizures: PLAN: Medical management per primary team (5) Goals of care, counseling/discussion: PLAN: *Discussion with family about goals of care going forward and patient wishes. *Discussion about CODE STATUS and clarification if patient would want intubation. Family is going to meet for decisions. (6) Palliative care encounter: PLAN: *Recommendation of palliative care, referral to [facility] pallitative ROS ROS Narrative Limited by cognition Review of Systems ROS Unobtainable: due to mental status Constitutional Constitutional: Reports weakness Cardiovascular Cardiovascular: Reports edema and leg edema Respiratory/Chest Respiratory/Chest: Reports dyspnea Gastrointestinal Gastrointestinal: Denies abdominal pain or vomiting Musculoskeletal Musculoskeletal: Reports muscle weakness Neurologic Neurologic: Reports weakness; Denies headache(s) Hematologic/Lymphatic Hematologic/Lymphatic: Denies easy bleeding or easy bruising
--- NOTE | 2025-04-09 15:20 | CASEMGMT ---
Social Work Charo GALLEGOS with [facility] called THONG and left a message. THONG called Charo with [facility] back. THONG informed Charo that the patient will be discharging to a SNF. THONG informed Charo that THONG will call her with the name of SNF facility once the that has been established. LISE Deras
[2025-04-09 15:27] VITALS: BMI 31.7
--- NOTE | 2025-04-09 15:32 | CASEMGMT ---
Addendum entered by Deborah Lopez 04/09/25 16:16: Brad has accepted and will submit for precert. SW updated. Deborah Lopez DC Planning Asst. Original Note: Discharge Planning Referral sent to Brad at [facility]. Deborah Lopez DC Planning Asst.
[2025-04-09 15:51] VITALS: BP 148/79; PULSE 75; RESP 17; TEMP 36.6; O2SAT 97
--- NOTE | 2025-04-09 15:52 | CHAPLAIN ---
Type of Pastoral Visit _x__ Initial Visit ___ Follow-up Visit ___ On-call Visit ___ General Patient Visit ___ Spiritual Assessment ___ Family Conference ___ Bereavement ___ Rapid Response ___ Code Blue ___ Other (describe below) Pastoral Care Referral From _x__ Patient ___ Family ___ Nurse ___ Physician ___ Home Specialist ___ Hemodialysis Technician ___ Other (describe below) Sacrament/Intervention _x__ Active listening ___ Anointing ___ Scientologist ___ Bereavement ___ Communion ___ Maggie exploration ___ ___ Life review _x__ Prayer ___ Reconciliation ___ Sacrament of Sick _x__ Supportive presence ___ Wedding ___ Other (describe below) Pastoral Comments patient is awake today; pt is offered support and she is welcoming and pleasant; pt does admit that she is not doing well; offering support and asking more questions about her coping and concerns however the patient is unable to finish sentences and to complete thoughts; pt struggles with her words; pt is affirmed in the care and concern for her wellbeing; pt is offered a prayer that she welcomes
--- NOTE | 2025-04-09 16:00 | CASEMGMT ---
Social Work SW called the patients daughter and she reported the patient is done with radiation and she is not getting cancer treatments. LISE Deras
--- NOTE | 2025-04-09 18:11 | PN.NEURO_ITS ---
Assessment and Plan: Neuro Assessment/Plan RESHMA EVANS is a 84 F with a past medical history of mningioma s/o craniotomy, gamma knife radiation, and WBR, being evaluated by Teleneurology for 2 week sudden worsening in mental status, ability to complete ADLs and decrease in eating. On history, this is a progressive subacute decline. Exam is largely nonfocal but concerning for poor arousal but no clear focality and no clear focal changes. Plan: - continue KEppra 1500mg BID, continue Vimpat 100mg BID - cont decadron 4mg q6 hr Consider transfer for additional workup for possible radiation necrosis. I personally attended this patient and spent a total time of 30minutes evaluating this patient including clinical assessment, review of chart, medical history imaging, and determining appropriate treatment and workup. Subject: Neurology Subjective Patient much more awake and talkative today and started eating. She is better than she was when she first came to the hospital. Neurologic History -? NEURO: -? Mental Status: The patient was alert and oriented to time, place, and person -? Language: speech is slightly dysarthric? Naming, repetition, fluency, and comprehension intact. -? Cranial Nerves: EOMI, visual pandya full, no facial asymmetry, facial sensation intact, hearing intact, tongue midline, -? Motor: normal bulk, tone, and strength throughout. No pronator drift or satelliting. Upper and lower extremities equal bilaterally. -? Sensation- Intact to light touch bilaterally -? Coordination: No dysmetria on [id number] b/l -? Gait- deferred EEG Results Procedure Details EEG Procedure Details: RESHMA EVANS is a 84 year old F with a past medical history of , who presents for evaluation of Electroencephalogram on DATE at TIME Objective Data Objective Data Vital Signs: Vital Signs Temp Pulse Resp BP Pulse Ox O2 Del Method 97.9 F 75 17 148/79 H 97 Room Air 04/09/25 15:51 04/09/25 15:51 04/09/25 15:51 04/09/25 15:51 04/09/25 15:51 04/09/25 15:53 Oxygen Delivery Method Room Air Weight: 83.869 kg Body Mass Index (BMI) 31.7 Intake & Output: Intake and Output for Last 24 Hours 04/07/25 04/08/25 04/09/25 23:59 23:59 23:59 Intake Total 200 / 200 130 / 130 178.75 / 178.75 Output Total 300 / 300 350 / 350 Balance -100 / -100 130 / -70 -171.25 / -171.25 Lab / Micro Data 04/09/25 05:35 04/09/25 05:35 Labs: Laboratory Results - last 24 hr 04/09/25 05:35: WBC 6.4, RBC 4.25, Hgb 12.8, Hct 38.6, MCV 90.8, MCH 30.1, MCHC 33.2, RDW Std Deviation 44.6 H, RDW Coeff of Tung 13.3, Plt Count 247, MPV 9.5, Immature Gran % (Auto) 0.300, Neut % (Auto) 90.1 H, Lymph % (Auto) 7.4 L, [place] % (Auto) 2.0, Eos % (Auto) 0.0, Baso % (Auto) 0.2, Absolute Neuts (auto) 5.7, A bsolute Lymphs (auto) 0.47 L, Nucleated RBC % 0, Sodium 139, Potassium 4.4, Chloride 104, Carbon Dioxide 22.7, Anion Gap 12, BUN 20 H, Creatinine 0.75, Estim Creat Clear Calc 52.89, Est GFR (MDRD) Non-Af 77, BUN/Creatinine Ratio 26.8 H, Glucose 171 H, Calcium 9.5 Rhythm Strip Rhythm Strip: Sinus Rhythm Rate: 72 Ectopy: None NIHSS NIHSS Nursing Documentation NIHSS Nursing Documentation: NIHSS: Ischemic Stroke/TIA Start: 04/08/25 06:57 Freq: [id number] Status: Complete Protocol: Activity Type Activity Date Activity User E-sign Co-sign Detail Recorded Client Recorded Date Recorded By Document 04/08/25 15:00 [id number] 04/08/25 15:34 04/08/25 15:00 NIH Stroke Scale [NIHSS] A score of 0 is normal or asymptomatic . Total possible score is 42. Inpatient: RN or Physician to activate a stroke alert for onset of new stroke symptoms or with NIHSS increase >/= 3 points. Following change in neurological status, NIHSS will be performed per physician order or more frequently PRN. -1a. Level of Consciousness 0 - Alert; keenly responsive -1b. LOC Questions 2 - Answers NEITHER question correctly -1c. LOC Commands 2 - Performs NEITHER task correctly -2. Best Gaze 1 - Partial gaze palsy; -3. Visual 2 - Complete hemianopia -4. Facial Palsy 0 - Normal symmetrical movements -5a. Left Arm 0 - No drift; arm holds 90 ( or 45) degrees for full 10 seconds -5b. Right Arm 1 - Drift; arm drifts downward but doesn?t hit the bed -6a. Left Leg 3 - No effort against gravity ; leg falls to bed immediately -6b. Right Leg 3 - No effort against gravity ; leg falls to bed immediately -7. Limb Ataxia 2 - Present in 2 limbs -8. Sensory 0 - Normal; no sensory loss -9. Best Language 2 - Severe aphasia; -10. Dysarthria 2 - Severe dysarthria; -11. Extinction and Inattention 0 - No abnormality -Total 20 Query Text:A score of 0 is normal or asymptomatic. Total possible score is 42 . ED: Notify Physician for NIHSS increase by > / = 3 points. Inpatient: RN or Physician to activate a stroke alert for NIHSS increase of > / = 3 points.
[2025-04-09 21:31] VITALS: BP 136/75; PULSE 70; RESP 17; TEMP 36.6; O2SAT 98
[2025-04-10 01:57] VITALS: BMI 31.7
[2025-04-10 03:41] VITALS: BP 150/86; PULSE 71; RESP 17; TEMP 36.4; O2SAT 98
[2025-04-10] MEDS: 0.9% Normal Saline (250mL Bag) 250 ML 15 ML IV (03:49)
[2025-04-10 08:20] VITALS: BP 142/77; PULSE 65; RESP 18; TEMP 36.5; O2SAT 97
--- NOTE | 2025-04-10 09:00 | PCA ---
PHONE CALL TO [facility] TO CHECK ON BED STATUS- PER [facility] THERE IS NO ACCEPTING PHYSICIAN AT THIS TIME. ONCE A PHYSICIAN HAS ACCEPTED AT [facility] PT WILL BE WAITING FOR A BED. AT THIS TIME [facility] IS FULL AND NO OPEN BEDS.
[2025-04-10] MEDS: Lacosamide 100 MG in 0.9% Normal Saline (50mL Bag) 50 ML IV (09:36)
--- NOTE | 2025-04-10 13:12 | PN.HOSP_ITS ---
Reason for Visit Chief Complaint: Generalized weakness Subjective Subjective Case was discussed with Dr. 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 Call was placed to [facility] And spoke with both hospitalist as well as the neurosurgeon on-call patient has been accepted for transfer currently waiting for bed Objective Data Objective Data Vital Signs: Vital Signs Temp Pulse Resp BP Pulse Ox O2 Del Method 97.7 F L 65 18 142/77 H 97 Room Air 04/10/25 08:20 04/10/25 08:20 04/10/25 08:20 04/10/25 08:20 04/10/25 08:20 04/10/25 08:20 Oxygen Delivery Method Room Air Weight: 83.869 kg Body Mass Index (BMI) 31.7 Intake & Output: Intake and Output for Last 24 Hours 04/08/25 04/09/25 04/10/25 23:59 23:59 23:59 Intake Total 130 / 130 438.75 / 438.75 342.75 / 342.75 Output Total 1050 / 1050 450 / 450 Balance 130 / -70 -611.25 / -611.25 -107.25 / -107.25 Lab / Micro Data 04/09/25 05:35 04/09/25 05:35 Rhythm Strip Rhythm Strip: Sinus Rhythm Rate: 72 Ectopy: None Physical Exam Narrative GENERAL: cooperative has tremors at rest HEENT: Atraumatic; normocephalic EYES; Anicteric, Normal Conjunctiva NECK; supple, normal thyroid, RESPIRATORY: Diminished to auscultation CARDIOVASCULAR: Regular S1 S2, GI: soft, normoactive bowel sounds, : No Renal angle tenderness; EXTREMITIES: No edema, no clubbing, MUSCULOSKELETAL: no muscle wasting NEURO: Awake; no lateralizing signs. SKIN: No Rash PSYCH; Flat affect Assessment & Plan Assessment/Plan (1) Generalized weakness: PLAN: Plan Patient is an 84-year-old lady who underwent left frontal craniotomy on 04/26/2024 at [facility] On account of recurrent meningioma. Postoperative. Complicated by seizures for which patient was started on Keppra. Patient was brought to the emergency department with progressive generalized weakness and falls. Patient hospital stay complicated by encephalopathy which was thought to be secondary to a prolonged seizure 1. Seizure disorder With suspected breakthrough seizure. MRI obtained did show No evidence of acute infarct. Presumed postoperative/radiation treatment related changes to the left frontal and anterior temporal convexities, with dural thickening and enhancement, and confluent parenchymal gliosis versus vasogenic edema. 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 Consult was placed to [facility] recommended addition of lacosamide in addition to patient's Keppra ? 04/10/2025ase was discussed with Dr. 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 Call was placed to [facility] And spoke with both hospitalist as well as the neurosurgeon on-call patient has been accepted for transfer currently waiting for bed 2 .History of brain tumor ? (left sphenoid wing meningioma) status post craniotomy and subsequent radiation (completed 3 weeks prior to her admission) complicated by postoperative seizures. Patient's family apparently had discussion with hospice to discuss goals of care moving forward. Family yet to make a decision 3. Dyslipidemia ?Patient is on statin therapy, continued at home dose 4. Physical deconditioning ? Requested for PT OT eval and hospital social worker to assist with discharge planning 5. DVT prophylaxis ? Bilateral SCDs Time spent in the patient's overall evaluation,decision-making process, review of diagnostic data, adjustment of management, discussion with other providers, nursing nursing and ancillary staff involved in patient's care documentation, 35 minutes Charges/Coding Visit Charges Inpatient E&M: 60837 Subs Hosp L2 NIHSS NIHSS Nursing Documentation NIHSS Nursing Documentation: NIHSS: Ischemic Stroke/TIA Start: 04/08/25 06:57 Freq: [id number] Status: Complete Protocol: Activity Type Activity Date Activity User E-sign Co-sign Detail Recorded Client Recorded Date Recorded By Document 04/08/25 15:00 [id number] 04/08/25 15:34 04/08/25 15:00 NIH Stroke Scale [NIHSS] A score of 0 is normal or asymptomatic . Total possible score is 42. Inpatient: RN or Physician to activate a stroke alert for onset of new stroke symptoms or with NIHSS increase >/= 3 points. Following change in neurological status, NIHSS will be performed per physician order or more frequently PRN. -1a. Level of Consciousness 0 - Alert; keenly responsive -1b. LOC Questions 2 - Answers NEITHER question correctly -1c. LOC Commands 2 - Performs NEITHER task correctly -2. Best Gaze 1 - Partial gaze palsy; -3. Visual 2 - Complete hemianopia -4. Facial Palsy 0 - Normal symmetrical movements -5a. Left Arm 0 - No drift; arm holds 90 ( or 45) degrees for full 10 seconds -5b. Right Arm 1 - Drift; arm drifts downward but doesn?t hit the bed -6a. Left Leg 3 - No effort against gravity ; leg falls to bed immediately -6b. Right Leg 3 - No effort against gravity ; leg falls to bed immediately -7. Limb Ataxia 2 - Present in 2 limbs -8. Sensory 0 - Normal; no sensory loss -9. Best Language 2 - Severe aphasia; -10. Dysarthria 2 - Severe dysarthria; -11. Extinction and Inattention 0 - No abnormality -Total 20 Query Text:A score of 0 is normal or asymptomatic. Total possible score is 42 . ED: Notify Physician for NIHSS increase by > / = 3 points. Inpatient: RN or Physician to activate a stroke alert for NIHSS increase of > / = 3 points.
[2025-04-10 14:44] VITALS: BP 135/71; PULSE 67; RESP 18; TEMP 36.7; O2SAT 97
[2025-04-10 14:51] VITALS: BMI 31.7
--- NOTE | 2025-04-10 15:57 | CASEMGMT ---
Social Work SW called [facility]. She reported the information was scanned to [facility]. She is not sure if has been accepted. SW called the daughter Trina. Trina reported [facility] called her this morning. She was told [facility] would like to know when the patient discharges from the hospital. SW spoke with her the [facility] in [place] accepting her mother and they initiated approval with the insurance company. SW explained after her mother discharges from [facility] they will need to start the SNF process over again. LISE Deras
--- NOTE | 2025-04-10 16:52 | DS.PCM_ITS ---
Providers Date of Admission: 04/08/25 Date of Discharge: 04/10/25 Primary Care Physician: KEHINDE Barclay Consultations 04/04/25 20:12 Consult: Onc/Wound/relocation associate Routine Comment: Reason for Consult:: pressure ulcer on coccyx 04/08/25 12:52 Consult: Inpatient Palliative Care Routine Consulting Provider: Carolina Silva Reason for Consult: Poor nutrition, seizures, craniotomy EMERGENT Consult: No MD Notified: Yes Date Notified: 04/08/25 Time Notified: 13:20 Method of Notification: Text Reason For Visit: GENERALIZED WEAKNESS, DEHYDRATION Diagnosis Discharge Diagnosis (1) Generalized weakness: Status: Acute Code(s): R53.1 - Weakness Plan Patient is an 84-year-old lady who underwent left frontal craniotomy on 04/26/2024 at [facility] On account of recurrent meningioma. Postoperative. Complicated by seizures for which patient was started on Keppra. Patient was brought to the emergency department with progressive generalized weakness and falls. Patient hospital stay complicated by encephalopathy which was thought to be secondary to a prolonged seizure 1. Seizure disorder With suspected breakthrough seizure. MRI obtained did show No evidence of acute infarct. Presumed postoperative/radiation treatment related changes to the left frontal and anterior temporal convexities, with dural thickening and enhancement, and confluent parenchymal gliosis versus vasogenic edema. 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 Consult was placed to [facility] recommended addition of lacosamide in addition to patient's Keppra ? 04/10/2025ase was discussed with Dr. 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 Call was placed to [facility] And spoke with both hospitalist as well as the neurosurgeon on-call patient has been accepted for transfer currently waiting for bed 2 .History of brain tumor ? (left sphenoid wing meningioma) status post craniotomy and subsequent radiation (completed 3 weeks prior to her admission) complicated by postoperative seizures. Patient's family apparently had discussion with hospice to discuss goals of care moving forward. Family yet to make a decision 3. Dyslipidemia ?Patient is on statin therapy, continued at home dose 4. Physical deconditioning ? Requested for PT OT eval and social media executive to assist with discharge planning 5. DVT prophylaxis ? Bilateral SCDs Time spent in the patient's overall evaluation,decision-making process, review of diagnostic data, adjustment of management, discussion with other providers, nursing nursing and ancillary staff involved in patient's care documentation, 35 minutes Medications at Discharge Home Medications cholecalciferol (vitamin D3) 25 mcg (1,000 unit) capsule 25 mcg PO DAILY supplement 05/03/24 gabapentin 100 mg capsule 100 mg PO BID nerve pain 05/03/24 multivitamin-ferrous fumarate-folic acid 18 mg-400 mcg tablet (Centrum Women) 1 tab PO DAILY supplement 05/03/24 acetaminophen 500 mg tablet 1,000 mg (2 x 500 mg) PO Q8 PRN pain/fever #1 TAB 05/17/24 levetiracetam 750 mg tablet (Keppra) 1,500 mg (2 x 750 mg) PO BID seizure #120 tabs 05/17/24 rosuvastatin 10 mg tablet 10 mg PO QDAY 02/11/25 Lacosamide [Vimpat] 100 mg 100 mls/hr IV Q12 04/10/25 dexamethasone sodium phosphate 4 mg/mL injection solution 4 mg IV Q6 #0 mL 04/10/25 Physical Exam Narrative GENERAL: cooperative has tremors at rest HEENT: Atraumatic; normocephalic EYES; Anicteric, Normal Conjunctiva NECK; supple, normal thyroid, RESPIRATORY: Diminished to auscultation CARDIOVASCULAR: Regular S1 S2, GI: soft, normoactive bowel sounds, : No Renal angle tenderness; EXTREMITIES: No edema, no clubbing, MUSCULOSKELETAL: no muscle wasting NEURO: Awake; no lateralizing signs. SKIN: No Rash PSYCH; Flat affect Weight / BMI Weight Weight: 83.869 kg Body Mass Index (BMI) 31.7 ABG / Lab / Microbiology Data 04/09/25 05:35 04/09/25 05:35 D/C Instructions Discharge Activity: Return to Normal Activity Call your doctor if you observe: Fever of 101 or Higher, Shortness of breath, Fainting spells and Chest pain DC O2, CPAP, BIPAP Needs Home O2 Discharge instructions: No Meaningful Use Info Meaningful Use Meaningful Use Diagnoses (Choose all that apply): None applicable Discharge Plan Admission Admit Date/Time: 04/08/25 14:11 Attending Provider: José Jaramillo Primary Care Provider: Zoë Kaplan NP Consulting Providers: Trinidad Magaña; Chirag Webb; Flor Blas; Dafne Torre; Johann Rodriguez; Zoe Gonzalez; Noreen Orozco; Aubrey Riley; Juan Carlos Gonzalez; AVERY ELIZABETH; Ramon Crockett; Mary Tinsley; Carolina Alexandre; Medhat Ceja Discharge Orders/Prescriptions Prescriptions: New dexamethasone sodium phosphate 4 mg/mL Solution 4 mg IV Q6 Qty: 0 0RF Lacosamide [Vimpat] 100 MG 0.9% Normal Saline (50mL Bag) 50 ML 100 mls/hr IV Q12 Ordered By: José Jaramillo MD Last Taken: 04/10/25 09:36 100 mls/hr Continued rosuvastatin 10 mg tablet 10 mg PO QDAY Centrum Women 18-400 mg-mcg tablet 1 tab PO DAILY gabapentin 100 mg capsule 100 mg PO BID cholecalciferol (vitamin D3) 25 mcg (1,000 unit) capsule 25 mcg PO DAILY acetaminophen 500 mg tablet 1,000 mg PO Q8 PRN (Reason: pain/fever) Qty: 1 0RF levetiracetam [Keppra] 750 mg tablet 1,500 mg PO BID Qty: 120 0RF Discontinued solifenacin [Vesicare] 10 mg tablet 10 mg PO QDAY Qty: 90 3RF Referrals / Follow Up: Zoë Kaplan NP, [facility] [Primary Care Provider, Medical] - Within 2 Weeks Disposition Disposition (needs filled in before D/C Order can be placed): Acute Care Hospital Charges/Coding Visit Charges Inpatient E&M: 25680 Disch Hosp >30min
[2025-04-10 17:13] VITALS: BP 135/71; PULSE 67; RESP 18; TEMP 36.7; O2SAT 97
--- NOTE | 2025-04-10 18:48 | NURSING ---
Report called to nurse Collins for pt to be transferred to [facility].
--- NOTE | 2025-04-10 19:08 | NURSING ---
This nurse spoke to pt's and daughters Tirna and Uzleima notifying them that pt will be transferred to [facility] this evening.
[2025-04-10 19:32] VITALS: BP 149/81; PULSE 74; RESP 18; TEMP 36.7; O2SAT 96
== END 2025-04-10 21:07 | disposition short-term general hospital (02) | DRG 100 ==
LOC: ED 15:51 → MS3 16:25 → PCU 04-08 06:54
PROVIDERS: Family Medicine; Admitting Provider Internal Medicine; Emergency Provider Emergency Medicine; PCP Registered Nurse; Visit Provider Internal Medicine
DX: G40.909 Epilepsy, unspecified, not intractable, without status epilepticus (principal); G93.6 Cerebral edema; M87.38 Other secondary osteonecrosis, other site; L89.150 Pressure ulcer of sacral region, unstageable; R62.7 Adult failure to thrive; Z51.5 Encounter for palliative care; Z66 Do not resuscitate; E11.9 Type 2 diabetes mellitus without complications; F03.90 Unspecified dementia, unspecified severity, without behavioral disturbance, psychotic disturbance, mood disturbance, and anxiety; I10 Essential (primary) hypertension; Z68.31 Body mass index [BMI] 31.0-31.9, adult; E78.5 Hyperlipidemia, unspecified; E86.0 Dehydration; H05.222 Edema of left orbit; S05.12XA Contusion of eyeball and orbital tissues, left eye, initial encounter; X58.XXXA Exposure to other specified factors, initial encounter; Y84.2 Radiological procedure and radiotherapy as the cause of abnormal reaction of the patient, or of later complication, without mention of misadventure at the time of the procedure; R53.1 Weakness; R53.81 Other malaise; H91.90 Unspecified hearing loss, unspecified ear; Z79.899 Other long term (current) drug therapy; Z92.3 Personal history of irradiation; Z85.841 Personal history of malignant neoplasm of brain; R29.6 Repeated falls; Z86.011 Personal history of benign neoplasm of the brain
CPT/HCPCS: 36415; 70450; 70496; 70498; 70553; 71045; 80048; 81001; 82306; 82607; 82962; 83735; 84100; 84443; 85025; 92526; 92610; 93005; 95819; 97110; 97116; 97163; 97164; 97166; 97168; 97530; 97535; 99284; A9575; A4216; C9254